=== PATIENT | female | born 1950 | race Caucasian/White ===

== ENCOUNTER → 2016-08-11 | Outpatient (CLI) | payer BC ==
[~2016-08-11] MED LIST: ACET-1256 PO; ALPR0.25 PO; CLON0.5T3 PO; EFF50 PO; LEVO1TAB35 PO; LRT5 PO; METO50TA7 PO; NITR0.4S UT; OMEP20TA14 PO; PRED20TA2 PO; PRED5PAK3 PO; RTL20 PO; ULT50X PO; VENL150C56 PO; VNTHFA/IN INH
--- NOTE | 2016-08-11 15:14 | DIAGNOSTIC IMAGING REPORT ---
CHEST 2 VIEWS ROUTINE CLINICAL HISTORY: BRONCHITIS SHORTNESS OF BREATH COMPARISON STUDY: 01/28/2010 FINDINGS: The cardiac and mediastinal contours are normal. There is no evidence of focal pulmonary consolidation. There is no evidence of failure. No pleural effusions are visualized.[ There is a severe vertebral body compression fracture at the thoracolumbar junction. The patient is status post a vertebroplasty at this level. IMPRESSION: No active disease in the chest. Electronically signed by: Gabriel Castorena M.D. 08/11/2016 3:12 PM Dictated Date/Time: 08/11/2016 3:10 PM
== END | disposition home or self-care (01) ==
LOC: C.RAD 14:53
PROVIDERS: ATTEND Internal Medicine
DX: J40 Bronchitis, not specified as acute or chronic (principal)

== ENCOUNTER → 2016-08-13 | Outpatient (CLI) | payer BC ==
[2016-08-13 13:33] LABS: BASO % 0.3 %; BASO ABS # 0.02 K/uL (0-0.2); COMPLETE YES; EOS % 9.5 %; HEMATOCRIT 41.3 % (37-47); IG% 0.3 %; LYMPH % 36.9 %; LYMPH ABS # 2.52 K/uL (1.2-3.4); MEAN CELL VOLUME 89.8 fL (80-100); MEAN CORPUSCULAR HEMOGLOBIN 30.4 pg (25-34); MEAN CORPUSCULAR HGB CONC 33.9 g/dl (32-36); MEAN PLATELET VOLUME 9.8 fL (7.4-10.4); MONO % 8.6 %; NEUT % 44.4 %; PLATELET COUNT 274 K/uL (130-400); WHITE BLOOD COUNT 6.83 K/uL (4.8-10.8)
[2016-08-13 15:07] LABS: CHOLESTEROL 241 mg/dl (0-200); CHOLESTEROL/HDL RATIO 4.5; HDL CHOLESTEROL 53 mg/dl; TRIGLYCERIDES 132 mg/dl (0-150); VERY LOW DENSITY LIPOPROT CALC 26 mg/dl
== END | disposition home or self-care (01) ==
LOC: C.LABSPEC 12:23
PROVIDERS: ATTEND Internal Medicine
DX: Z00.00 Encounter for general adult medical examination without abnormal findings (principal); R53.83 Other fatigue; E78.5 Hyperlipidemia, unspecified

== ENCOUNTER → 2016-08-14 | Outpatient (CLI) | payer BC ==
[2016-08-14 15:31] LABS: ALT/SGPT 23 U/L (12-78); AST/SGOT 14 U/L (15-37); BLOOD UREA NITROGEN 14 mg/dl (7-18); CALCIUM 9.4 mg/dl (8.5-10.1); CARBON DIOXIDE 27 mmol/L (21-32); CHLORIDE 103 mmol/L (98-107); CREATININE 0.81 mg/dl (0.60-1.20); GLUCOSE 85 mg/dl (70-99); POTASSIUM 3.8 mmol/L (3.5-5.1); SODIUM 140 mmol/L (136-145)
[2016-08-14 15:33] LABS: ALKALINE PHOSPHATASE 90 U/L (45-117)
== END | disposition home or self-care (01) ==
LOC: C.LABSPEC 11:20
PROVIDERS: ATTEND Internal Medicine
DX: Z00.00 Encounter for general adult medical examination without abnormal findings (principal)

== ENCOUNTER → 2016-08-27 | Outpatient (CLI) | payer BC ==
--- NOTE | 2016-08-27 11:34 | DIAGNOSTIC IMAGING REPORT ---
ULTRASOUND OF THE CAROTID ARTERIES CLINICAL HISTORY: Carotid artery stenosis. COMPARISON STUDY: Carotid artery ultrasound dated 04/03/2015. TECHNIQUE: Real-time, grayscale, and color Doppler sonography of the carotid arteries is performed. Images are reviewed in the transverse and longitudinal planes. FINDINGS: Blood pressure in the right arm measures 137/80 and blood pressure in the left arm measures 127/71. The carotid arteries are patent bilaterally and demonstrate antegrade flow. There is moderate echogenic shadowing atherosclerotic plaque seen in the carotid bulbs bilaterally, left greater than right. Normal doppler arterial waveforms are seen throughout. Velocity measurements are listed below. Common carotid peak systolic velocity (cm/sec): RIGHT: 79 LEFT: 83 ICA proximal peak systolic velocity (cm/sec): RIGHT: 68 LEFT: 147 ICA mid peak systolic velocity (cm/sec): RIGHT: 96 LEFT: 105 ICA distal peak systolic velocity (cm/sec): RIGHT: 66 LEFT: 71 ICA/CC peak systolic ratio: RIGHT: 1.2 LEFT: 1.8 Antegrade flow was shown in the right vertebral artery. Reversal of flow is noted in the left vertebral artery. The external carotid arteries are patent. IMPRESSION: 1. Atherosclerotic plaque with evidence of 50-69% stenosis at the origin of the left internal carotid artery by velocity criteria. This is similar to previous. 2. There is no sonographic evidence of hemodynamically significant stenosis in the right carotid arterial system. 3. Reversal of flow is seen in the left vertebral artery. This could be seen in the setting of subclavian steal phenomenon. Clinical correlation will be required. Electronically signed by: Mathew Hutchison M.D. 08/27/2016 11:32 AM Dictated Date/Time: 08/27/2016 11:30 AM
== END | disposition home or self-care (01) ==
LOC: C.ULTR 09:58
PROVIDERS: ATTEND Internal Medicine
DX: I65.22 Occlusion and stenosis of left carotid artery (principal)

== ENCOUNTER → 2016-08-27 | Outpatient (CLI) | payer BC ==
--- NOTE | 2016-08-28 12:36 | MAMMOGRAPHY REPORT ---
BILATERAL DIGITAL SCREENING MAMMOGRAM TOMOSYNTHESIS WITH CAD: 08/27/2016 CLINICAL HISTORY: Asymptomatic. TECHNIQUE: Breast tomosynthesis in addition to standard 2D mammography was performed. Current study was also evaluated with a Computer Aided Detection (CAD) system. COMPARISON: Comparison is made to exams dated: 04/24/2015 mammogram, 02/28/2014 mammogram, 08/11/2012 mammogram, 06/02/2011 mammogram, 06/22/2009 mammogram - [facility], and 08/21/2006. BREAST COMPOSITION: The tissue of both breasts is heterogeneously dense, which may obscure small ma sses. FINDINGS: There are coarse benign calcifications and grouped round benign-appearing microcalcificati ons in the breasts. A stable metallic biopsy marker in the 9:00 right breast. No new suspicious ma ss, architectural distortion or cluster of microcalcifications is seen. IMPRESSION: ACR BI-RADS CATEGORY 1: NEGATIVE There is no mammographic evidence of malignancy. A 1 year screening mammogram is recommended. The p atient will receive written notification of the results. Approximately 10% of breast cancers are not detected with mammography. A negative mammographic repor t should not delay biopsy if a clinically suggestive mass is present. Laila Dupont M.D. ay/:08/27/2016 21:27:48 Inside Account Representative: Kimberley HILL)(Rafi), [facility] letter sent: Normal 1/2 BI-RADS Code: ACR BI-RADS Category 1: Negative
== END | disposition home or self-care (01) ==
LOC: C.MAMM 11:19
PROVIDERS: ATTEND Internal Medicine
DX: Z12.31 Encounter for screening mammogram for malignant neoplasm of breast (principal)

== ENCOUNTER 2016-09-08 11:14 | Emergency (ER) | payer BC ==
[~2016-09-08] VITALS: Ht 157.5 cm; Wt 51.7 kg
[~2016-09-08 11:14] MED LIST changes: -ACET-1256 PO; -LEVO1TAB35 PO; -OMEP20TA14 PO; -PRED20TA2 PO; -PRED5PAK3 PO; -RTL20 PO; -ULT50X PO; -VENL150C56 PO; -VNTHFA/IN INH
[2016-09-08 11:17] VITALS: TEMP 36.6; Ht 157.5 cm; Wt 51.7 kg
[2016-09-08] MEDS ORDERED: METHYLPREDNISOLONE 125 MG VIAL IV STA (12:06)
[2016-09-08] MEDS ORDERED: ALBUT/IPRATROP 3MG/0.5MG NEB 3 ML VIAL INH STA (12:06)
--- NOTE | 2016-09-08 12:11 | EMERGENCY ROOM VISIT NOTE ---
History Report prepared by Isaura: Wyatt Downey Under the Supervision of: Dr. Uvaldo Kline D.O. First contact with patient: 12:03 Chief Complaint: COUGH Stated Complaint: PERSISTENT COUGH, FEVER, ONGOING X 2 MTHS Nursing Triage Summary: Pt c/o SOB, cough, fever for 2 months. Pt daughter states pt has been in bed and has been on antibiotics for cough. History of Present Illness The patient is a 65 year old female who presents to the Emergency Room with complaints of persistent coughing for the past two months. The patient also complains of chest tightness of shortness of breath, along with some wheezing, rhinorrhea, body aches, and intermittent fevers. She was febrile last night but not today. The patient denies sore throats, coughing up blood, or leg swelling. She has been on two different courses of antibiotics. She was also on cough syrup with codeine. She was not started on any steroids. The patient saw her doctor and had a chest X-ray and blood work. The X-ray was negative, and she has not been told the results of her blood work. The patient denies any history of COPD, asthma, or emphysema. The patient is a smoker and occasional alcohol drinker. Source of History: patient Onset: two months Position: other (respiratory) Quality: other (coughing) Timing: other (persistent) Associated Symptoms: + SOB, + chest pain, + fatigue, + fevers, No sorethroat Review of Systems See HPI for pertinent positives & negatives. A total of 10 systems reviewed and were otherwise negative. Past Medical & Surgical Medical Problems: (1) Diarrhea (2) Hypercholesterolemia (3) Left shoulder pain Family History No pertinent family history Social History Smoking Status: Current Every Day Smoker Alcohol Use: occasionally Current/Historical Medications Scheduled Acetaminophen (Tylenol), 1,000 MG PO DAILY Albuterol Hfa (Ventolin Hfa), 1 PUFF INH Q4 Clonazepam (Klonopin), 0.5 MG PO PRN Levofloxacin (Levaquin), 750 MG PO DAILY Metoprolol Succ (Toprol Xl) (Toprol-Xl), 50 MG PO DAILY Omeprazole Magnesium (Prilosec Otc), 20 MG PO DAILY Prednisone (Prednisone Tab), 40 MG PO DAILY Venlafaxine Hcl (Effexor Extended Rel), 150 MG PO DAILY Scheduled PRN Alprazolam (Xanax), 0.25 MG PO PRN PRN for Anxiety/Agitation Allergies Coded Allergies: Antihistamines, Chlorpheniramine-ty (Verified Adverse Reaction, Intermediate, BOUNCE OFF THE WALL;INCREASE HR, 09/08/16) Physical Exam Vital Signs Date Time Temp Pulse Resp B/P Pulse Ox O2 Delivery O2 Flow Rate FiO2 09/08/16 14:56 97 20 117/74 97 09/08/16 13:38 84 20 112/65 98 Room Air 09/08/16 12:43 90 26 109/69 99 Room Air 09/08/16 12:21 86 09/08/16 12:20 98 Room Air 09/08/16 11:19 98 Room Air 09/08/16 11:17 36.6 109 18 116/73 98 Room Air Physical Exam GENERAL: Patient is awake, alert, mildly anxious appearing but comfortable. EYES: The conjunctivae are clear. The pupils are round and reactive. EARS, NOSE, MOUTH AND THROAT: The nose is without any evidence of any deformity. Mucous membranes are moist tongue is midline NECK: The neck is nontender and supple. RESPIRATORY: Lung sounds are diminished throughout with scattered rhonchi, no conversational dyspnea. CARDIOVASCULAR: Regular rate and rhythm noted there no murmurs rubs or gallops normal S1 normal S2 GASTROINTESTINAL: The abdomen is soft. Bowel sounds are present in all quadrants. Abdomen is nontender MUSCULOSKELETAL/EXTREMITIES: There is no evidence of gross deformity full range of motion is noted in the hips and shoulders SKIN: There is no obvious evidence of any rash. There are no petechiae, pallor or cyanosis noted. NEUROLOGIC: Patient is awake alert and oriented x3. Medical Decision & Procedures ER Provider Diagnostic Interpretation: X-ray results as stated below per interpretation by me and the radiologist. Radiology results as stated below per my review and radiologist interpretation: CT ANGIOGRAPHY OF THE CHEST, PULMONARY EMBOLUS PROTOCOL CLINICAL HISTORY: Shortness of breath, cough and fever. COMPARISON STUDY: Chest radiograph August 11, 2016 and September 08, 2016. TECHNIQUE: Following IV administration of 81 mL of Optiray-320, helical axial images of the chest were obtained utilizing the pulmonary embolus protocol. Maximal intensity projections and sagittal and coronal reformats were viewed on an independent 3D workstation. IV contrast was administered without complication. CT DOSE: 179.78 mGy.cm FINDINGS: No pulmonary emboli are identified. The heart is mildly enlarged. There is a small hiatal hernia. No enlarged thoracic lymph nodes are present. There is no pericardial effusion. There is no evidence for thoracic aortic dissection. There is moderate stenosis of the proximal left subclavian artery. Central airways are patent. Biapical subpleural opacity suggest scarring. In addition, there are multifocal tree-in-bud nodules within the lungs, predominantly within the upper lobes. There are scattered lower lobe tree-in-bud nodules as well. There is no pneumothorax or pleural effusion. The bony thorax is unremarkable. A L1 vertebral augmentation is noted. Upper abdomen is unremarkable. Left adrenal nodularity is likely benign. IMPRESSION: 1. No pulmonary emboli identified. 2. Scattered tree-in-bud nodules within the lungs, predominantly within the bilateral upper lobes. The findings suggest a mild infectious bronchiolitis. A follow-up chest CT in one month to ensure resolution is recommended. 3. Biapical subpleural opacities which suggest scarring. 4. Mild cardiomegaly. 5. Small hiatal hernia Electronically signed by: Chago Horner M.D. 09/08/2016 2:03 PM Dictated Date/Time: 09/08/2016 1:56 PM CHEST 2 VIEWS ROUTINE CLINICAL HISTORY: Fever, cough. COMPARISON STUDY: 08/11/2016 FINDINGS: The cardiac and mediastinal contours are normal. There is no evidence of focal pulmonary consolidation. There is no evidence of failure. No pleural effusions are visualized.[ IMPRESSION: No active disease in the chest. Electronically signed by: Gabriel Castorena M.D. 09/08/2016 1:23 PM Dictated Date/Time: 09/08/2016 1:22 PM Laboratory Results 09/08/16 12:20 Red Blood Count 4.64, Mean Corpuscular Volume 88.8, Mean Corpuscular Hemoglobin 30.4, Mean Corpuscular Hemoglobin Concent 34.2, Mean Platelet Volume 9.0, Neutrophils (%) (Auto) 67.0, Lymphocytes (%) (Auto) 21.6, Monocytes (%) (Auto) 9.7, Eosinophils (%) (Auto) 1.1, Basophils (%) (Auto) 0.4, Neutrophils # (Auto) 6.34, Lymphocytes # (Auto) 2.04, Monocytes # (Auto) 0.92, Eosinophils # (Auto) 0.10, Basophils # (Auto) 0.04 09/08/16 12:20 Test 09/08/16 12:15 09/08/16 12:20 09/08/16 12:46 Influenza Type A Antigen Neg for Influ A (NEG) Influenza Type B Antigen Neg for Influ B (NEG) White Blood Count 9.46 K/uL (4.8-10.8) Red Blood Count 4.64 M/uL (4.2-5.4) Hemoglobin 14.1 g/dL (12.0-16.0) Hematocrit 41.2 % (37-47) Mean Corpuscular Volume 88.8 fL (80-100) Mean Corpuscular Hemoglobin 30.4 pg (25-34) Mean Corpuscular Hemoglobin Concent 34.2 g/dl (32-36) Platelet Count 341 K/uL (130-400) Mean Platelet Volume 9.0 fL (7.4-10.4) Neutrophils (%) (Auto) 67.0 % Lymphocytes (%) (Auto) 21.6 % Monocytes (%) (Auto) 9.7 % Eosinophils (%) (Auto) 1.1 % Basophils (%) (Auto) 0.4 % Neutrophils # (Auto) 6.34 K/uL (1.4-6.5) Lymphocytes # (Auto) 2.04 K/uL (1.2-3.4) Monocytes # (Auto) 0.92 K/uL (0.11-0.59) Eosinophils # (Auto) 0.10 K/uL (0-0.5) Basophils # (Auto) 0.04 K/uL (0-0.2) RDW Standard Deviation 45.1 fL (36.4-46.3) RDW Coefficient of Variation 13.8 % (11.5-14.5) Immature Granulocyte % (Auto) 0.2 % Immature Granulocyte # (Auto) 0.02 K/uL (0.00-0.02) Prothrombin Time 10.4 SECONDS (9.0-12.0) Prothromb Time International Ratio 1.0 (0.9-1.1) Activated Partial Thromboplast Time 31.7 SECONDS (21.0-31.0) Partial Thromboplastin Ratio 1.2 D-Dimer 620 ug/L FEU (0-500) Anion Gap 11.0 mmol/L (3-11) Est Creatinine Clear Calc Drug Dose 66.1 ml/min Estimated GFR () 107.1 Estimated GFR (Non- 92.4 BUN/Creatinine Ratio 16.1 (10-20) Calcium Level 9.7 mg/dl (8.5-10.1) Total Bilirubin 0.5 mg/dl (0.2-1) Aspartate Amino Transf (AST/SGOT) 17 U/L (15-37) Alanine Aminotransferase (ALT/SGPT) 26 U/L (12-78) Alkaline Phosphatase 113 U/L (45-117) Troponin I < 0.015 ng/ml (0-0.045) Total Protein 8.3 gm/dl (6.4-8.2) Albumin 3.7 gm/dl (3.4-5.0) Globulin 4.6 gm/dl (2.5-4.0) Albumin/Globulin Ratio 0.8 (0.9-2) Urine Color YELLOW Urine Appearance CLEAR (CLEAR) Urine pH 7.5 (4.5-7.5) Urine Specific [place] 1.016 (1.000-1.030) Urine Protein NEG (NEG) Urine Glucose (UA) NEG (NEG) Urine Ketones TRACE (NEG) Urine Occult Blood TRACE (NEG) Urine Nitrite NEG (NEG) Urine Bilirubin NEG (NEG) Urine Urobilinogen NEG (NEG) Urine Leukocyte Esterase LARGE (NEG) Urine WBC (Auto) >30 /hpf (0-5) Urine RBC (Auto) 5-10 /hpf (0-4) Urine Hyaline Casts (Auto) 1-5 /lpf (0-5) Urine Epithelial Cells (Auto) >30 /lpf (0-5) Urine Bacteria (Auto) 1+ (NEG) Laboratory results per my review. Medications Administered Medications (Trade) Dose Ordered Sig/Chelita Route Start Time Stop Time Status Last Admin Dose Admin Albuterol/ Ipratropium (Duoneb) 3 ml NOW STAT INH 09/08/16 12:06 09/08/16 12:07 DC 09/08/16 12:27 3 ML Methylprednisolone Sodium Succinate 125 mg 125 mg NOW STAT IV 09/08/16 12:06 09/08/16 12:07 DC 09/08/16 12:27 125 MG Sodium Chloride (Nss 1000ml) 1,000 ml @ 999 mls/hr Q1H1M STAT IV 09/08/16 13:17 09/08/16 14:17 DC 09/08/16 13:29 999 MLS/HR Levofloxacin (Levaquin Tab) 750 mg NOW STAT PO 09/08/16 14:12 09/08/16 14:13 DC 09/08/16 14:27 750 MG ECG Indication: SOB/dyspnea Rate (beats per minute): 89 Rhythm: normal sinus Findings: no acute ischemic change, no ectopy Comparison ECG Date: 21 October 2011 Change: no significant change ED Course 1205: The patient was evaluated in room B10. A complete history and physical examination were performed. 1206: Solu-Medrol 125 mg IV, DuoNeb 3 ml INH. 1317: NSS 1000 ml @ 999 mls/hr. 1412: Levofloxacin 750 mg PO. 1414: Reassessed the patient. I updated her. She will be discharged. Medical Decision Prior records/ancillary studies reviewed. Triage Nursing notes reviewed. Additional history obtained from the family. The patient's history was concerning for respiratory difficulties. Differential diagnosis: Etiologies such as infections, reactive airway disease, pneumonia, pneumothorax , COPD, CHF, cardiac ischemia, pulmonary embolism, musculoskeletal, gastrointestinal, as well as others were entertained. The patient is a 65-year-old female who presented to the emergency department for an evaluation of cough and shortness of breath. Patient was treated with medications in the past for similar complaints. Her d-dimer was found to be elevated. The patient was treated with bronchodilator therapy in the emergency department. She was also given steroids and antibiotics. Her CAT scan did not reveal any signs of pulmonary embolism but did show possible infectious bronchiolitis. I discussed the patient's laboratory and radiographic studies with her. She was feeling much better on subsequent reevaluation. She was encouraged to rest and avoid any strenuous activity. She was encouraged to call her primary care physician to schedule a follow-up appointment or return to the emergency apartment immediately if symptoms change worsen or the need arises. Impression Primary Impression: Acute bronchitis Additional Impression: Left sided chest pain Scribe Attestation The scribe's documentation has been prepared under my direction and personally reviewed by me in its entirety. I confirm that the note above accurately reflects all work, treatment, procedures, and medical decision making performed by me. Departure Information Dispostion Home / Self-Care Prescriptions Albuterol Hfa (VENTOLIN HFA) 200 Puffs/07007 Mcg Aers 1 PUFF INH Q4, #1 INHALER Prov: Uvaldo Kline, DO 09/08/16 Levofloxacin (Levaquin) 750 Mg Tab 750 MG PO DAILY, #7 TAB Prov: Uvaldo Kline, DO 09/08/16 Prednisone (Prednisone Tab) 20 Mg Tab 40 MG PO DAILY, #10 TAB Prov: Uvaldo Kline, DO 09/08/16 Omeprazole Magnesium (PRILOSEC OTC) 20 Mg Tab 20 MG PO DAILY, #30 TAB Prov: Uvaldo Kline, DO 09/08/16 Referrals Agus Kenney M.D. (PCP) Forms HOME CARE DOCUMENTATION FORM, IMPORTANT VISIT INFORMATION, Work Instructions Patient Instructions My [facility] Additional Instructions Rest and avoid any strenuous activity. Continue all medications as prescribed. Call your family to schedule a follow-up appointment. Return to the emergency department if your symptoms change worsen or if need arises. Problem Qualifiers
[2016-09-08 12:20] VITALS: O2SAT 98
[2016-09-08 12:38] LABS: BASO % 0.4 %; BASO ABS # 0.04 K/uL (0-0.2); COMPLETE YES; EOS % 1.1 %; HEMATOCRIT 41.2 % (37-47); IG% 0.2 %; LYMPH % 21.6 %; LYMPH ABS # 2.04 K/uL (1.2-3.4); MEAN CELL VOLUME 88.8 fL (80-100); MEAN CORPUSCULAR HEMOGLOBIN 30.4 pg (25-34); MEAN CORPUSCULAR HGB CONC 34.2 g/dl (32-36); MONO % 9.7 %; PLATELET COUNT 341 K/uL (130-400); RED BLOOD COUNT 4.64 M/uL (4.2-5.4); WHITE BLOOD COUNT 9.46 K/uL (4.8-10.8)
[2016-09-08 12:50] LABS: PARTIAL THROMBOPLASTIN RATIO 1.2; PROTHROMBIN TIME (PATIENT) 10.4 SECONDS (9.0-12.0)
[2016-09-08 13:00] LABS: ALT/SGPT 26 U/L (12-78); AST/SGOT 17 U/L (15-37); BLOOD UREA NITROGEN 11 mg/dl (7-18); BUN/CREATININE RATIO 16.1 (10-20); CALCIUM 9.7 mg/dl (8.5-10.1); CARBON DIOXIDE 24 mmol/L (21-32); CHLORIDE 104 mmol/L (98-107); CREATININE 0.68 mg/dl (0.60-1.20); GLUCOSE 76 mg/dl (70-99); POTASSIUM 3.8 mmol/L (3.5-5.1); SODIUM 139 mmol/L (136-145)
[2016-09-08 13:05] LABS: ALB/GLOB RATIO 0.8 (0.9-2); ALKALINE PHOSPHATASE 113 U/L (45-117)
[2016-09-08 13:09] LABS: URINE APPEARANCE CLEAR (CLEAR); URINE BILIRUBIN NEG (NEG); URINE COLOR YELLOW; URINE EPITHELIAL CELL AUTO >30 /lpf (0-5); URINE NITRITE NEG (NEG); URINE PH 7.5 (4.5-7.5); URINE SPECIFIC GRAVITY 1.016 (1.000-1.030); UROBILINOGEN NEG (NEG)
[2016-09-08] MEDS ORDERED: OPTIRAY 320 IV PRN (13:15)
[2016-09-08 13:16] LABS: MANUAL MICROSCOPIC REQUIRED? NO; REVIEW REQ? NO
[2016-09-08] MEDS ORDERED: SODIUM CHLORIDE 0.9% 1000ML 1,000 ML IV STA (13:17)
[2016-09-08] MEDS ORDERED: VENL150C56 PO (13:23)
[2016-09-08] MEDS ORDERED: ACET-1256 PO (13:24)
--- NOTE | 2016-09-08 13:24 | DIAGNOSTIC IMAGING REPORT ---
CHEST 2 VIEWS ROUTINE CLINICAL HISTORY: Fever, cough. COMPARISON STUDY: 08/11/2016 FINDINGS: The cardiac and mediastinal contours are normal. There is no evidence of focal pulmonary consolidation. There is no evidence of failure. No pleural effusions are visualized.[ IMPRESSION: No active disease in the chest. Electronically signed by: Gabriel Castorena M.D. 09/08/2016 1:23 PM Dictated Date/Time: 09/08/2016 1:22 PM
--- NOTE | 2016-09-08 14:05 | DIAGNOSTIC IMAGING REPORT ---
CT ANGIOGRAPHY OF THE CHEST, PULMONARY EMBOLUS PROTOCOL CLINICAL HISTORY: Shortness of breath, cough and fever. COMPARISON STUDY: Chest radiograph August 11, 2016 and September 08, 2016. TECHNIQUE: Following IV administration of 81 mL of Optiray-320, helical axial images of the chest were obtained utilizing the pulmonary embolus protocol. Maximal intensity projections and sagittal and coronal reformats were viewed on an independent 3D workstation. IV contrast was administered without complication. CT DOSE: 179.78 mGy.cm FINDINGS: No pulmonary emboli are identified. The heart is mildly enlarged. There is a small hiatal hernia. No enlarged thoracic lymph nodes are present. There is no pericardial effusion. There is no evidence for thoracic aortic dissection. There is moderate stenosis of the proximal left subclavian artery. Central airways are patent. Biapical subpleural opacity suggest scarring. In addition, there are multifocal tree-in-bud nodules within the lungs, predominantly within the upper lobes. There are scattered lower lobe tree-in-bud nodules as well. There is no pneumothorax or pleural effusion. The bony thorax is unremarkable. A L1 vertebral augmentation is noted. Upper abdomen is unremarkable. Left adrenal nodularity is likely benign. IMPRESSION: 1. No pulmonary emboli identified. 2. Scattered tree-in-bud nodules within the lungs, predominantly within the bilateral upper lobes. The findings suggest a mild infectious bronchiolitis. A follow-up chest CT in one month to ensure resolution is recommended. 3. Biapical subpleural opacities which suggest scarring. 4. Mild cardiomegaly. 5. Small hiatal hernia Electronically signed by: Chago Horner M.D. 09/08/2016 2:03 PM Dictated Date/Time: 09/08/2016 1:56 PM
[2016-09-08] MEDS ORDERED: LEVOFLOXACIN 250 MG TAB PO STA (14:12)
[2016-09-08] MEDS ORDERED: PRED20TA2 PO (14:28)
[2016-09-08] MEDS ORDERED: VNTHFA/IN INH (14:28)
[2016-09-08] MEDS ORDERED: OMEP20TA14 PO (14:28)
[2016-09-08] MEDS ORDERED: LEVO1TAB35 PO (14:28)
[2016-09-08 14:56] VITALS: BP 117/74; PULSE 97; O2SAT 97
[2016-10-03] MEDS ORDERED: ULT50X PO (08:03)
[2016-10-03] MEDS ORDERED: PRED5PAK3 PO (08:03)
== END 2016-09-08 14:56 | disposition home or self-care (01) ==
LOC: C.EDB 11:16
DX: J40 Bronchitis, not specified as acute or chronic (principal); R07.9 Chest pain, unspecified; E78.00 Pure hypercholesterolemia, unspecified; F17.200 Nicotine dependence, unspecified, uncomplicated

== ENCOUNTER 2016-09-30 12:17 | Inpatient (IN) | payer BC ==
[~2016-09-30] VITALS: Ht 157.5 cm; Wt 54.0 kg
[~2016-09-30 12:17] MED LIST changes: +ACET-1256 PO; -EFF50 PO; +LEVO1TAB35 PO; -LRT5 PO; -NITR0.4S UT; +PRED20TA2 PO; +VENL150C56 PO; +VNTHFA/IN INH
[2016-09-30] MEDS ORDERED: ONDANSETRON INJ 2 MG/ML 2 ML VIAL IV STA (12:32)
[2016-09-30] MEDS ORDERED: HYDROmorphone INJ 2 MG/ML SYR/VIAL IV PRN (12:45)
[2016-09-30] MEDS ORDERED: HYDROmorphone INJ 1 MG/ML SYR ONE ×2 (12:47→13:32)
[2016-09-30] MEDS ORDERED: RTL20 PO (12:49)
[2016-09-30 12:57] LABS: BASO % 0.3 %; BASO ABS # 0.02 K/uL (0-0.2); COMPLETE YES; EOS % 6.6 %; IG% 0.3 %; LYMPH % 28.8 %; LYMPH ABS # 1.91 K/uL (1.2-3.4); MEAN CELL VOLUME 90.7 fL (80-100); MEAN CORPUSCULAR HEMOGLOBIN 31.2 pg (25-34); MEAN CORPUSCULAR HGB CONC 34.4 g/dl (32-36); MEAN PLATELET VOLUME 9.2 fL (7.4-10.4); MONO % 5.3 %; NEUT % 58.7 %; PLATELET COUNT 327 K/uL (130-400); RED BLOOD COUNT 4.74 M/uL (4.2-5.4); WHITE BLOOD COUNT 6.63 K/uL (4.8-10.8)
[2016-09-30 13:15] LABS: BUN/CREATININE RATIO 18.7 (10-20); CALCIUM 9.7 mg/dl (8.5-10.1); CREATININE 0.67 mg/dl (0.60-1.20); POTASSIUM 3.8 mmol/L (3.5-5.1)
--- NOTE | 2016-09-30 13:56 | DIAGNOSTIC IMAGING REPORT ---
LUMBAR SPINE CT CT DOSE: 630.26 mGy.cm HISTORY: severe left back pain, prior L1 fx TECHNIQUE: Multiaxial CT images of the lumbar spine were performed and reformatted in the sagittal and coronal plane without the use of contrast. COMPARISON: Lumbar spine MRI 01/29/2010. FINDINGS: Moderate to severe superior endplate compression deformity at L1 with associated vertebroplasty. This is consistent with an old compression deformity. There is up to 3 mm of retropulsion of the posterior superior corner of the L1 vertebral body, unchanged. No significant central canal narrowing at this level. No acute fracture or subluxation within the lumbar spine. Mild facet degenerative changes throughout the lumbar spine. Small amount of extravasation of cement material lateral to the right L1 pedicle and at the left side of the L1 vertebral body. No significant central canal or neural foraminal narrowing. IMPRESSION: 1. An old moderate to severe superior endplate compression deformity at L1 with associated vertebroplasty. 2. No acute fracture or subluxation within the lumbar spine. 3. No significant central canal or neural foraminal narrowing. Electronically signed by: Hernandez Barber M.D. 09/30/2016 1:55 PM Dictated Date/Time: 09/30/2016 1:31 PM
[2016-09-30] MEDS ORDERED: DEXAMETHASONE SOD INJ 10 MG/ML VIAL IV ONE (14:15)
[2016-09-30 19:14] VITALS: BP 108/68; PULSE 55; TEMP 36.7; O2SAT 94; Ht 157.5 cm; Wt 54.0 kg
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
[2016-09-30] MEDS: OXYCODONE/ACETAMINOPHEN 5-325 TAB PO SCH (20:41)
[2016-09-30] MEDS: CYCLOBENZAPRINE HCL 10 MG TAB PO SCH (20:41)
[2016-09-30] MEDS: HEPARIN SOD 5000 UNIT/0.5 ML CARP SQ SCH (20:41)
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
[2016-09-30 23:00] VITALS: BP 108/54; PULSE 58; TEMP 36.5; O2SAT 97
[2016-10-01] MEDS: OXYCODONE/ACETAMINOPHEN 5-325 TAB PO SCH ×4 (02:09→20:29)
[2016-10-01] MEDS: MoRPHine SULFATE 4 MG/ML 1 ML CARP\\VIAL IV PRN ×3 (05:32→19:27)
[2016-10-01 06:45] LABS: BASO % 0.1 %; BASO ABS # 0.01 K/uL (0-0.2); COMPLETE YES; HEMATOCRIT 42.4 % (37-47); IG% 0.3 %; LYMPH % 18.1 %; LYMPH ABS # 1.32 K/uL (1.2-3.4); MEAN CELL VOLUME 90.4 fL (80-100); MEAN CORPUSCULAR HEMOGLOBIN 30.1 pg (25-34); MEAN CORPUSCULAR HGB CONC 33.3 g/dl (32-36); MONO % 4.1 %; NEUT % 77.4 %; PLATELET COUNT 316 K/uL (130-400); RED BLOOD COUNT 4.69 M/uL (4.2-5.4); WHITE BLOOD COUNT 7.31 K/uL (4.8-10.8)
[2016-10-01 07:05] VITALS: BP 124/56; PULSE 57; TEMP 36.6; O2SAT 97
[2016-10-01 07:19] LABS: BUN/CREATININE RATIO 27.5 (10-20); CALCIUM 9.1 mg/dl (8.5-10.1); CREATININE 0.68 mg/dl (0.60-1.20); POTASSIUM 4.1 mmol/L (3.5-5.1)
[2016-10-01 07:21] LABS: ALB/GLOB RATIO 0.9 (0.9-2)
[2016-10-01] MEDS: VENLAFAXINE HCL XR 150 MG CAPXR PO SCH (08:48)
[2016-10-01] MEDS: CYCLOBENZAPRINE HCL 10 MG TAB PO SCH ×4 (08:48→20:29)
[2016-10-01] MEDS: HEPARIN SOD 5000 UNIT/0.5 ML CARP SQ SCH ×2 (08:52→20:36)
[2016-10-01] MEDS: METHYLPHENIDATE HCL 10 MG TAB PO SCH ×2 (08:54→14:00)
[2016-10-01] MEDS: METOPROLOL SUCC 50MG EXT REL TAB PO SCH (08:54)
--- NOTE | 2016-10-01 11:14 | ORTHOPEDIC CONSULTATION ---
DATE OF CONSULTATION: 10/01/2016 CHIEF COMPLAINT: Back pain. HISTORY: This is a very pleasant 65-year-old female who is well known to me. She had the onset of significant lumbosacral back pain yesterday while putting on her boots. She denies any trauma, fall or precipitating event. She describes her pain as involving the lower lumbar region and left lumbosacral area. She denies any bowel or bladder changes or any radicular leg complaints. PHYSICAL EXAMINATION: She has excellent strength to testing lower extremities, is able to move them without difficulty. She has some discomfort when rolling over to her side. She has no pain to palpation or percussion over the midline lumbar region but significantly tender over the left SI joint. There are no abnormal skin markings. CAT scan available for review demonstrates evidence of old kyphoplasty at L1. There is no evidence of fracture. She has excellent overall alignment and evidence of osteoporosis. ASSESSMENT: Left sacroiliac joint dysfunction, strain/sprain, possible occult fracture. PLAN: At this time, I did speak with the physical therapist. We are going to initiate physical therapy, ambulation and transfers, see how she progresses over the next 24-48 hours. Ultimately, she fails to improve, we may consider MRI imaging of the lumbar spine; however, I suspect she will improve nicely over the next few days. Thank you.
[2016-10-01 14:54] VITALS: BP 121/70; PULSE 53; TEMP 36.7; O2SAT 95
[2016-10-01 23:01] VITALS: BP 97/55; PULSE 62; TEMP 36.7; O2SAT 98
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
[2016-10-02] VITALS (7 sets, daily range): BP systolic 84–99; BP diastolic 52–58; PULSE 59–70; TEMP 36.5–36.8; O2SAT 93–99
[2016-10-02] MEDS: OXYCODONE/ACETAMINOPHEN 5-325 TAB PO SCH ×4 (02:10→19:21)
[2016-10-02] MEDS: MoRPHine SULFATE 4 MG/ML 1 ML CARP\\VIAL IV PRN (05:13)
[2016-10-02] MEDS ORDERED: KETOROLAC TROMETHAMINE 15 MG/ML VIAL IV PRN (08:00)
[2016-10-02] MEDS: CYCLOBENZAPRINE HCL 10 MG TAB PO SCH ×3 (08:46→20:47)
[2016-10-02] MEDS: METOPROLOL SUCC 50MG EXT REL TAB PO SCH (08:48)
[2016-10-02] MEDS: VENLAFAXINE HCL XR 150 MG CAPXR PO SCH (08:48)
[2016-10-02] MEDS: METHYLPHENIDATE HCL 10 MG TAB PO SCH ×2 (08:49→13:41)
[2016-10-02] MEDS: HEPARIN SOD 5000 UNIT/0.5 ML CARP SQ SCH ×2 (08:55→20:49)
--- NOTE | 2016-10-03 00:31 | PROGRESS NOTE ---
DATE: 10/02/2016 A 65-year-old female admitted with severe acute intractable low back pain. She has a history of compression fracture of L1 many years ago, that required kyphoplasty. She also has coronary artery disease. The patient was admitted. She was given pain medication for control. Physical and occupational therapies were ordered. Spinal surgery consultation was requested from Dr. Carmichael. Today, her condition has started to improve. She still has pain whenever she moves, but overall her pain is improving but persistent. She denied any headache or dizziness. No chest pain, no shortness of breath. No abdominal pain. Tolerating her diet. Low back pain in lumbar area. No radiation of the pain to her extremities. PHYSICAL EXAMINATION: GENERAL: Well developed, in no distress. VITAL SIGNS: Blood pressure 95/58, pulse 59, respirations 15, temperature 36.6, oxygen saturation 99% on room air. SKIN: Warm and dry. No rash. HEENT: No mucosal abnormality. NECK: No JVD, no adenopathy. HEART: Regular heart sounds. LUNGS: Clear. BACK: Tenderness in the paraspinal region lumbar area. EXTREMITIES: No edema, clubbing or cyanosis. No evidence of any radiculopathy. ASSESSMENT: 1. Acute intractable lower back pain. 2. Remote history of L1 compression fracture with history of kyphoplasty. 3. Coronary artery disease, stable. PLAN: 1. Continue with her therapies. 2. I discontinued her morphine. 3. I placed her on Toradol. 4. Started her on prednisone. 5. Encouraged to be out of bed and ambulate. 6. We will see what level of pain she is having, see if her pain is improving, and decide on discharge home tomorrow.
[2016-10-03] MEDS: OXYCODONE/ACETAMINOPHEN 5-325 TAB PO SCH ×2 (01:59→08:20)
[2016-10-03 06:08] LABS: HEMATOCRIT 42.4 % (37-47); MEAN CELL VOLUME 89.1 fL (80-100); MEAN CORPUSCULAR HEMOGLOBIN 29.6 pg (25-34); MEAN CORPUSCULAR HGB CONC 33.3 g/dl (32-36); MEAN PLATELET VOLUME 9.1 fL (7.4-10.4); PLATELET COUNT 329 K/uL (130-400); RED BLOOD COUNT 4.76 M/uL (4.2-5.4); WHITE BLOOD COUNT 7.89 K/uL (4.8-10.8)
[2016-10-03 07:50] VITALS: BP 110/78; PULSE 65; TEMP 36.7; O2SAT 97
[2016-10-03] MEDS ORDERED: ULT50X PO (08:03)
[2016-10-03] MEDS ORDERED: PRED5PAK3 PO (08:03)
--- NOTE | 2016-10-03 08:07 | Discharge Instructions ---
Discharge Instructions Date of Service Oct 03, 2016. Admission Reason for Admission: Severe Low Back Pain. Cad Discharge Discharge Diagnosis / Problem: ACUTE LOW BACK PAIN Discharge Goals Goal(s): Decrease discomfort, Improve function, Increase independence, Improve disease control Activity Recommendations Activity Limitations: as noted below (GRADUAL INCREASE TOLERATED) . Instructions / Follow-Up Instructions / Follow-Up DR ABDI NEXT WEEK Current Hospital Diet Patient's current hospital diet: AHA Diet (Heart Healthy) Discharge Diet Recommended Diet: AHA Diet (Heart Healthy) Pending Studies Studies pending at discharge: no Laboratory Results Lipid Panel Test 08/13/16 09:50 Range/Units Triglycerides Level 132 0-150 mg/dl Cholesterol Level 241 H 0-200 mg/dl HDL Cholesterol 53 mg/dl LDL Cholesterol Direct 177 mg/dl Cholesterol/HDL Ratio 4.5 LDL Cholesterol, Calculated mg/dl Medical Emergencies . Who to Call and When: Medical Emergencies: If at any time you feel your situation is an emergency, please call 911 immediately. . Non-Emergent Contact Non-Emergency issues call your: Primary Care Provider . . "Provider Documentation" section prepared by Agus Abdi. VTE Core Measure Inpt VTE Proph given/why not?: Treatment not indicated
[2016-10-03] MEDS: METHYLPHENIDATE HCL 10 MG TAB PO SCH (08:16)
[2016-10-03] MEDS: METOPROLOL SUCC 50MG EXT REL TAB PO SCH (08:19)
[2016-10-03] MEDS: VENLAFAXINE HCL XR 150 MG CAPXR PO SCH (08:20)
[2016-10-03] MEDS: CYCLOBENZAPRINE HCL 10 MG TAB PO SCH (08:20)
[2016-10-03] MEDS: HEPARIN SOD 5000 UNIT/0.5 ML CARP SQ SCH (08:23)
[2016-10-03 09:56] VITALS: O2SAT 97
[2016-10-03 10:21] VITALS: BP 110/78; PULSE 65; TEMP 36.7; O2SAT 97
--- NOTE | 2016-10-04 01:33 | PROGRESS NOTE ---
DATE: 10/03/2016 SUBJECTIVE: A 65-year-old female admitted with acute severe intractable low back pain. Her medical problems also include history of compression fracture of L1, underwent kyphoplasty, coronary artery disease, attention deficit disorder. The patient was admitted. Pain controlled. Physical and occupational therapy. Spinal surgery consultation from Dr. Carmichael. Her condition has improved. She is still having significant pain in her lower back, especially with any movement, but she is able to move, get out of bed and ambulate. She denied any headache or dizziness or lightheadedness. No chest pain, no shortness of breath. No abdominal pain, no nausea, no vomiting. Back pain, but no evidence of any radiculopathy. PHYSICAL EXAMINATION: GENERAL: Well developed in no distress. VITAL SIGNS: Blood pressure 110/78, pulse 65, respirations 16, temperature 36.7, oxygen saturation 97% on room air. SKIN: Warm and dry. No rash. HEENT: No mucosal abnormality. NECK: No JVD. No adenopathy. HEART: Regular heart sounds. LUNGS: Clear. ABDOMEN: Soft, nontender. BACK: There is a well-localized area of tenderness in the lumbar area. EXTREMITIES: No edema, clubbing, or cyanosis. ASSESSMENT: 1. Acute severe intractable low back pain. 2. History of compression fracture of L1, status post kyphoplasty. 3. Coronary artery disease. 4. Attention deficit disorder. 5. Smoker. She just stopped a few days prior to her admission. PLAN: 1. Continuing the same medications. 2. Pain controlled. 3. She was discharged home today. She was continued on prednisone and Flexeril and also gave her tramadol for pain control. 4. I asked her to stop by the office on the way home and gave her back exercises book. I recommended outpatient physical therapy, but the patient was not interested.
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
== END 2016-10-03 14:00 | disposition home or self-care (01) | DRG 552 ==
LOC: ENRESERVDT → ENRESERVTM → EDBD 12:17 → C.EDC 12:18 → C.MSW 18:18
PROVIDERS: ADMIT Internal Medicine; ATTEND Internal Medicine
DX: M54.5 Low back pain (principal); I25.10 Atherosclerotic heart disease of native coronary artery without angina pectoris; E78.00 Pure hypercholesterolemia, unspecified; F17.200 Nicotine dependence, unspecified, uncomplicated; F90.0 Attention-deficit hyperactivity disorder, predominantly inattentive type; F32.9 Major depressive disorder, single episode, unspecified; F41.9 Anxiety disorder, unspecified; Z90.710 Acquired absence of both cervix and uterus

== ENCOUNTER → 2017-08-25 | Outpatient (CLI) | payer BC ==
[~2017-08-25] MED LIST changes: -ACET-1256 PO; -CLON0.5T3 PO; -LEVO1TAB35 PO; -METO50TA7 PO; +METO50TA8 PO; -PRED20TA2 PO; +PRED5PAK3 PO; +RTL20 PO; +ULT50X PO; -VNTHFA/IN INH
[2017-08-25 13:27] LABS: BASO % 0.2 %; BASO ABS # 0.02 K/uL (0-0.2); EOS % 1.7 %; EOS ABS # 0.18 K/uL (0-0.5); HEMATOCRIT 40.8 % (37-47); HEMOGLOBIN 13.7 g/dL (12.0-16.0); IG# 0.03 K/uL (0.00-0.02); LYMPH % 13.3 %; LYMPH ABS # 1.38 K/uL (1.2-3.4); MEAN CELL VOLUME 90.9 fL (80-100); MEAN CORPUSCULAR HEMOGLOBIN 30.5 pg (25-34); MEAN CORPUSCULAR HGB CONC 33.6 g/dl (32-36); MEAN PLATELET VOLUME 9.5 fL (7.4-10.4); MONO % 7.2 %; MONO ABS # 0.75 K/uL (0.11-0.59); NEUT % 77.3 %; NEUT ABS # 8.01 K/uL (1.4-6.5); PLATELET COUNT 352 K/uL (130-400); RED CELL DISTRIBUTION WIDTH CV 13.2 % (11.5-14.5); RED CELL DISTRIBUTION WIDTH SD 43.5 fL (36.4-46.3); WHITE BLOOD COUNT 10.37 K/uL (4.8-10.8)
[2017-08-25 13:30] LABS: FECAL OCCULT BLOOD #1 NEGATIVE (NEGATIVE); FECAL OCCULT BLOOD #2 NEGATIVE (NEGATIVE); FECAL OCCULT BLOOD #3 NEGATIVE (NEGATIVE)
[2017-08-25 14:57] LABS: ALBUMIN 3.6 gm/dl (3.4-5.0); ALT/SGPT 20 U/L (12-78); AST/SGOT 15 U/L (15-37); BLOOD UREA NITROGEN 11 mg/dl (7-18); CALCIUM 9.5 mg/dl (8.5-10.1); CARBON DIOXIDE 26 mmol/L (21-32); CREATININE 0.65 mg/dl (0.60-1.20); GLUCOSE 87 mg/dl (70-99); LIPASE 227 U/L (73-393); POTASSIUM 3.8 mmol/L (3.5-5.1); SODIUM 136 mmol/L (136-145)
[2017-08-25 15:00] LABS: ALKALINE PHOSPHATASE 94 U/L (45-117); TOTAL PROTEIN 7.8 gm/dl (6.4-8.2)
== END | disposition home or self-care (01) ==
LOC: C.LABSPEC 12:31
PROVIDERS: ATTEND Internal Medicine
DX: Z12.11 Encounter for screening for malignant neoplasm of colon (principal); R10.10 Upper abdominal pain, unspecified

== ENCOUNTER → 2017-08-28 | Outpatient (CLI) | payer BC ==
--- NOTE | 2017-08-28 11:14 | DIAGNOSTIC IMAGING REPORT ---
ABDOMEN LIMITED (US) HISTORY: 66 years-old Female SEVERE UPPER ABDOMINAL PAIN acute severe upper abdominal pain COMPARISON: CT abdomen and pelvis 01/28/2010 TECHNIQUE: Multiple real-time sonogram images of the abdominal right upper quadrant were obtained assessing grayscale appearance and color flow FINDINGS: Pancreas is partially obscured by bowel gas. Imaged portions are unremarkable. Gallbladder is within normal limits without wall thickening, pericholecystic fluid or shadowing cholelithiasis. Common bile duct is normal, 6 mm. No intrahepatic biliary ductal dilation. There is a 5 mm echogenic lesion involving the right hepatic lobe without internal vascularity identified. No additional hepatic mass lesions are seen. Imaged right kidney is unremarkable without hydronephrosis. IMPRESSION: 1. No cholelithiasis or sonographic evidence of acute cholecystitis. 2. 5 mm echogenic lesion of the right hepatic lobe may reflect a hemangioma, however is indeterminate. 3. No biliary ductal dilation. The above report was generated using voice recognition software. It may contain grammatical, syntax or spelling errors. Electronically signed by: Rad Beckwith M.D. 08/28/2017 11:13 AM Dictated Date/Time: 08/28/2017 11:10 AM
== END | disposition home or self-care (01) ==
LOC: C.ULTR 10:36
PROVIDERS: ATTEND Internal Medicine
DX: R10.10 Upper abdominal pain, unspecified (principal); K76.9 Liver disease, unspecified

== ENCOUNTER → 2017-08-28 | Outpatient (CLI) | payer BC ==
--- NOTE | 2017-08-28 15:27 | MAMMOGRAPHY REPORT ---
BILATERAL DIGITAL SCREENING MAMMOGRAM TOMOSYNTHESIS WITH CAD: 08/28/2017 CLINICAL HISTORY: Routine screening. Patient has no complaints. TECHNIQUE: Breast tomosynthesis in addition to standard 2D mammography was performed. Current study was also evaluated with a Computer Aided Detection (CAD) system. COMPARISON: Comparison is made to exams dated: 08/27/2016 mammogram, 04/24/2015 mammogram, 02/28/2014 ma mmogram, 08/19/2012 mammogram, 08/11/2012 mammogram, and 06/02/2011 mammogram - [facility] enter. BREAST COMPOSITION: The tissue of both breasts is heterogeneously dense, which may obscure small mas ses. FINDINGS: No suspicious masses, calcifications, or areas of architectural distortion are noted in ei ther breast. There has been no significant interval change compared to prior exams. Bilateral benign -appearing calcifications are not significantly changed. A biopsy marker clip is again noted within the right superior breast. IMPRESSION: ACR BI-RADS CATEGORY 2: BENIGN There is no mammographic evidence of malignancy. A 1 year screening mammogram is recommended. The pa tient will receive written notification of the results. Approximately 10% of breast cancers are not detected with mammography. A negative mammographic report should not delay biopsy if a clinically suggestive mass is present. Karey Mchugh M.D. ah/:08/28/2017 12:44:14 [employer] Sales Representative: Anny CASIANO(Thor)(M), [facility] letter sent: Normal 1/2 BI-RADS Code: ACR BI-RADS Category 2: Benign
== END | disposition home or self-care (01) ==
LOC: C.MAMM 11:40
PROVIDERS: ATTEND Internal Medicine
DX: Z12.31 Encounter for screening mammogram for malignant neoplasm of breast (principal)

== ENCOUNTER 2018-12-22 17:45 | Inpatient (IN) ==
--- OUTSIDE RECORDS SUMMARY | 2018-12-22 17:49 | External Medical Summary | Continuity of Care Document ---
:1950 Author Name Jesus Franklin, Provider Address Unavailable Unavailable , Care Team Providers Name Role Phone Unavailable Unavailable Unavailable ROVERTO ABDI Unavailable Unavailable Unavailable Unavailable Unavailable Problems Coronary artery disease (414.00) (I25.10) Depression (311) (F32.9) Impingement syndrome of left shoulder (726.2) (M75.42) Hypercholesterolemia (272.0) (E78.00) Allergies and Adverse Reactions Antihistamine TABS (Allergy) Reaction: P alpitations Medications Calcium 600 MG Oral Tablet; Take 1 tablet daily , M.D. Refills: 0 Vitamin B-12 1000 MCG Oral Tablet; TAKE 1 TABLET DAILY. , M. D. Refills: 0 Fish Oil 1000 MG Oral Capsule; TAKE 1 CAPSULE DAILY. , M.D. Refills: 0 Isosorbide Mononitrate ER 60 MG Oral Tab let Extended Release 24 Hour; TAKE 1 TABLET DAILY. , M.D. Refills: 0 Metoprolol Succinate ER 50 MG Oral Table t Extended Release 24 Hour; TAKE 1 TABLET DAILY. , M.D. Refills: 0 Effexor XR 150 MG Oral Capsule Extended Release 24 Norman r; TAKE 1 CAPSULE DAILY. , M.D. Refills: 0 Simvastatin 80 MG Oral Tablet; Take 1 tablet daily , M.D. Refills: 0 Xanax 0.25 MG Oral Tablet; TAKE TABLET 3 times daily PRN , M .D. Refills: 0 KlonoPIN 0.5 MG Oral Tablet; Take 1 tablet twice daily , M.D . Refills: 0 Aspirin 81 MG TABS; TAKE 1 TABLET DAILY. , M.D. Refills: 0 Procedures Procedures not documented Immunizations Immunizations not documented Social History - Smoking Status Smoker. current status unknown Plan of Treatment Planned Observations Planned Goals not documented Results No Known Results Results not documented
[2018-12-22 18:16] LABS: Basophils # (auto) 0.02 K/uL (0-0.2); Basophils % (auto) 0.2 %; Eosinophils # (auto) 0.14 K/uL (0-0.5); Eosinophils % (auto) 1.7 %; Hematocrit (blood only) 37.8 % (37-47); Hemoglobin 13.1 g/dL (12.0-16.0); Immature Granulocytes # (auto) 0.03 K/uL (0.00-0.02); Immature Granulocytes % (auto) 0.4 %; Lymphocytes # (auto) 1.47 K/uL (1.2-3.4); Lymphocytes % (auto) 17.9 %; Mean Corpuscular Hgb Conc 34.7 g/dL (32-36); Mean Corpuscular Volume 88.9 fL (80-100); Mean Platelet Volume 8.7 fL (7.4-10.4); Monocytes % (auto) 4.9 %; Neutrophils # (auto) 6.14 K/uL (1.4-6.5); Neutrophils % (auto) 74.9 %; Platelet Count 315 K/uL (130-400); RDW Coefficient of Variation 13.4 % (11.5-14.5); RDW Standard Deviation 43.6 fL (36.4-46.3); Red Blood Count 4.25 M/uL (4.2-5.4)
[2018-12-22] MEDS ORDERED: NITROGLYCERIN 2% OINTMENT 30GM TUBE EXT STA (18:16)
--- NOTE | 2018-12-22 18:17 | XRay Report ---
SINGLE VIEW CHEST CLINICAL HISTORY: Atypical chest pain. FINDINGS: An AP, portable, upright chest radiograph is compared to study dated 07/30/2018. Correlation is made with chest CT dated 09/08/2016. The cardiomediastinal heart is mildly enlarged and there is a therosclerotic calcification of the thoracic aorta. The pulmonary vasculature is noncongested. Emphys mary kay and chronic interstitial thickening are similar to previous. No airspace consolidation or pleural effusion is identified. Apical scarring is observed. No pneumothorax is seen. The skeletal structure s are osteopenic. The bony thorax is grossly intact. There is mild S-shaped thoracolumbar scoliosis. IMPRESSION: Cardiomegaly and emphysema with no active disease in the chest. Electronically signed by: Mathew Hutchison M.D. 12/22/2018 6:16 PM
[2018-12-22] MEDS ORDERED: SODIUM CHLORIDE 0.9% 1000ML 1,000 ML IV STA (18:37)
[2018-12-22 19:05] LABS: Albumin Level 3.3 gm/dl (3.4-5.0); BUN Creatinine Ratio 16.7 (10-20); Creatinine Clr Calc Pharmacy 59.1 ml/min; Est GFR (African American) 98.8; Est GFR (Non-African American) 85.2; Potassium 3.3 mmol/L (3.5-5.1)
[2018-12-22 19:36] LABS: Bilirubin,Total 0.3 mg/dl (0.2-1); Globulin 3.4 gm/dl (2.5-4.0); Total Protein 6.7 gm/dl (6.4-8.2); Troponin I 0.024 ng/ml (0-0.045)
--- NOTE | 2018-12-22 21:06 | History & Physical Report ---
Date of Service December 22, 2018 Assessment & Plan (1) Substernal chest pain: 68yo F PMH CAD, HTN, HLD, Crohn's, Depression, ADHD presents with acute chest pain and EKG changes. Unstable angina/EKG changes/Chest pain/CAD -Admit to tele -Heparin drip -Cards consult appreciated -Echo ordered -Trend trop, check A1c, lipid profile, mag -Started on daily ASA, atorvastatin 80 -IVF, prn morphine/nitro -Recommend smoking cessation measures HTN -Continue home metoprolol 50 ER, hold for BP/HR parameters -Start on Dao when BP allows HLD -Resumed high-intensity statin Hypokalemia -K of 3.3 on admission with hemolysis -Repleted. Monitor. Crohns -Cont mesalamine ADHD -has not been taking meds lately as she lost her bottle. Depression -Cont venlafaxine Code: full Dispo: admit to tele DVTP: heparin drip FEN/GI: NSS @125, NPO (2) Acute electrocardiogram changes: (3) Unstable angina: (4) Crohns disease: (5) HTN (hypertension): (6) Hyperlipidemia: (7) CAD (coronary artery disease): (8) Hypokalemia: History of Present Illness Chief Complaint: Chest Pain Primary Care Provider: Agus Manzano MD Patient is a pleasant 68yo F PMH CAD, adult ADHD, Crohn's, depression, who presents with 2 episodes of chest pain in the past 24 hours. She notes that last night, she had an episode of chest discomfort that radiated to her neck and jaw while she was resting in bed. Associated with shortness of breath and diaphoresis. She states she took 2 xanax and within an hour her symptoms resolved. Today, she states she had been gardening outside, felt tired, so went inside to take a shower and while walking into her room felt the chest pain return, again radiating to her neck and jaw and associated with heavy breathing, lightheadedness, and diaphoresis. Denies nausea/vomiting/calf pain/palpitations. She took 2 xanax again but this did not alleviate her symptoms so EMS was called. EKGs from EMS and in ER show diffuse ST changes, most notably ST depression in II, V4-6. Troponin .024. She was given 2 nitro and asa in the ER and her chest pain has resolved. Nitro paste was held due to BP of 100/53 and HR 50. Patient takes toprol XL daily. Had previously taken a daily asa, simvastatin 80, but patient reports she stopped the statin herself many years ago due to cramps and just stopped taking the aspirin. Patient had CAD diagnosed in 2006, when she had [place] cardiac [place] [facility] [place] they found 50% stenosis in prox LAD, 40% in proximal 1st diagonal, RCA dominant vessel with 20% stenosis, EF 68%. She also had a stress echo in 2010 prior to a procedure, where she participated for 9 min Cruz protocol without symptoms, but did show post EKG changes of .5- 1mm ST depressions in V4-6. Because patient was asymptomatic, these were noted to be "artifact." She is a current everyday smoker. She does not think she is diabetic. Does report some family history of heart disease. Allergies Allergy/AdvReac Type Severity Reaction Status Date / Time chlorpheniramine AdvReac Intermediate BOUNCE OFF Verified 12/22/18 21:00 THE WALL;INCREASE HR Home Medications Home Medications Medication Instructions Recorded Confirmed Type alprazolam 0.25 mg PO BID PRN 12/22/18 12/22/18 History dextroamphetamine-amphetamine 10 mg PO BID 12/22/18 12/22/18 History mesalamine [Pentasa] 1,000 mg PO AMPM 12/22/18 12/22/18 History metoprolol succinate 50 mg PO DAILY 12/22/18 12/22/18 History venlafaxine 150 mg PO DAILY 12/22/18 12/22/18 History Past Med/Surg History Medical History Hypercholesterolemia (Chronic) Diarrhea (Resolved) Left shoulder pain (Chronic) CAD (coronary artery disease) Family History Other Cancer Heart disease Hypertension Social History Preferred Language: Yi Communication Ability: Effective Hoop Cutter Required: No Beliefs That Will Affect Care: None marital status: / Current Living Situation: Alone current occupational status: retired Other Information That Helps Us Care for You: No Feels Safe at Home: Yes Safety Concerns: Feels Safe At This Time Smoking Status: Current every day smoker Tobacco Type: cigarettes Cigarettes Per Day: 10 Do You Dip or Chew Tobacco: No Second Hand Exposure: No Tobacco Cessation Education Requested by Patient: No Hx Alcohol Use: Yes Alcohol type: beer and wine Hx Substance Use: No Review of Systems Review of Systems: All systems reviewed & are unremarkable except as noted in HPI & below Constitutional: + fatigue Cardiovascular: + 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), + chest pain at rest (DOUBLE END TENONER SETTER), + radiating jaw, neck or arm pain (prior to arrival), + dyspnea (DOUBLE END TENONER SETTER) and + lightheadedness (DOUBLE END TENONER SETTER); no palpitations, no edema and no calf pain Physical Exam Constitutional: WD/WN, vitals as above + thin and comfortable; no acute distress, not in distress and not diaphoretic Eyes: PERRL, conjunctivae normal, anicteric sclerae ENMT: external ear and nose normal, oropharynx normal Neck: normal visual inspection Respiratory: normal respiratory effort, lungs clear to auscultation Cardiovascular: RRR, no murmur, no edema Gastrointestinal (Abdomen): normal bowel sounds, soft, nontender, no hepatosplenomegaly Musculoskeletal: no cyanosis or clubbing, extremities motor strength 5/5 Skin: no rashes, warm and dry Neurologic: PERRL, EOMI, accommodation nl, no face palsy, no dysarthria Psychiatric: A+Ox3, euthymic affect Results & Data Vital Signs (Past 12 Hours) Vital Signs Temp Pulse Resp BP Pulse Ox 12/22/18 20:30 64 14 102/56 L 95 12/22/18 20:00 60 20 93/49 L 95 12/22/18 19:30 56 L 18 94/61 L 96 12/22/18 19:00 50 L 13 97/63 L 96 12/22/18 18:31 62 17 93/61 L 96 12/22/18 18:00 36.7 C 59 L 18 107/55 L 98 Laboratory Results 12/22/18 12/22/18 Range/Units 18:07 18:07 WBC 8.20 (4.8-10.8) K/uL RBC 4.25 (4.2-5.4) M/uL Hgb 13.1 (12.0-16.0) g/dL Hct 37.8 (37-47) % MCV 88.9 (80-100) fL MCH 30.8 (25-34) pg MCHC 34.7 (32-36) g/dL RDW Std Deviation 43.6 (36.4-46.3) fL RDW Coeff of Harish 13.4 (11.5-14.5) % Plt Count 315 (130-400) K/uL MPV 8.7 (7.4-10.4) fL Immature Gran % (Auto) 0.4 % Neut % (Auto) 74.9 % Lymph % (Auto) 17.9 % [place] % (Auto) 4.9 % Eos % (Auto) 1.7 % Baso % (Auto) 0.2 % Immature Gran # (Auto) 0.03 H (0.00-0.02) K/uL Neut # (Auto) 6.14 (1.4-6.5) K/uL Lymph # (Auto) 1.47 (1.2-3.4) K/uL [place] # (Auto) 0.40 (0.11-0.59) K/uL Eos # (Auto) 0.14 (0-0.5) K/uL Baso # (Auto) 0.02 (0-0.2) K/uL Sodium 138 (136-145) mmol/L Potassium 3.3 L (3.5-5.1) mmol/L Chloride 105 (98-107) mmol/L Carbon Dioxide 26 (21-32) mmol/L Anion Gap 7.0 (3-11) BUN 12 (7-18) mg/dl Creatinine 0.73 (0.6-1.2) mg/dl Est Cr Clr Drug Dosing 59.1 ml/min Est GFR ( Amer) 98.8 Est GFR (Non-Af Amer) 85.2 BUN/Creatinine Ratio 16.7 (10-20) Glucose 115 H (70-99) mg/dl Calcium 9.0 (8.5-10.1) mg/dl Total Bilirubin 0.3 (0.2-1) mg/dl AST 19 (15-37) U/L ALT 17 (12-78) U/L Alkaline Phosphatase 86 (45-117) U/L Troponin I 0.024 (0-0.045) ng/ml Total Protein 6.7 (6.4-8.2) gm/dl Albumin 3.3 L (3.4-5.0) gm/dl Globulin 3.4 (2.5-4.0) gm/dl Albumin/Globulin Ratio 1.0 (0.9-2) Lipase 117 (73-393) U/L Specimen Hemolysis Diagnostic Findings SINGLE VIEW CHEST CLINICAL HISTORY: Atypical chest pain. FINDINGS: An AP, portable, upright chest radiograph is compared to study dated 07/30/2018. Correlation is made with chest CT dated 09/08/2016. The cardiomediastinal heart is mildly enlarged and there is atherosclerotic calcification of the thoracic aorta. The pulmonary vasculature is noncongested. Emphysema and chronic interstitial thickening are similar to previous. No airspace consolidation or pleural effusion is identified. Apical scarring is observed. No pneumothorax is seen. The skeletal structures are osteopenic. The bony thorax is grossly intact. There is mild S-shaped thoracolumbar scoliosis. IMPRESSION: Cardiomegaly and emphysema with no active disease in the chest. Electronically signed by: Mathew Hutchison M.D. 12/22/2018 6:16 PM Code Status & VTE Plan Code Status Full VTE Prophylaxis Plan VTE Prophylaxis will be ordered: Yes Supervising Physician Co-Signing Physician Notes Patient seen and examined, chart reviewed, case discussed with Dr Tavares and I agree with her assessment and plan as documented above. Briefly, patient is a 68yo C female with CAD, HLP presenting with two episodes of chest pain. Pain described as pressure, fullness, 10/10 in severity associated with radiation to the jaw, diaphoresis and SOB. EMS EKG with TWI present. Patient presently chest pain free On exam she is afebrile, bradycardic HEENT: MMM, neck supple, no JVD Heart: +S1/S2, regular Lungs: CTA Abd: soft, NT/ND Ext: No edema Labs and images reviewed. Troponin detectable Assessment/Plan: high concern for ACS given description of pain, patient risk factors, detectable troponin and EKG changes. Admit to PCU, heparin gtt, trend troponin, remainder of plan as above Resident Activity Tracking Resident Involvement: Resident Care Provided Care Provided: Adult [facility]
[2018-12-22] MEDS ORDERED: ALPRAZolam 0.25 MG TABLET PO PRN (21:36)
--- NOTE | 2018-12-22 22:12 | Emergency Department Note ---
Entered by Makayla Harrell acting as a scribe for ED Provider Note CHIEF COMPLAINT: Chest Pain HISTORY OF PRESENT ILLNESS: The patient is a 68 year old female who presents to the Emergency Room with complaints of intermittent chest pain that started last night. The patient states that she has had 2 episodes of chest pain. She states that with both there was a very extreme pressure that ran from the bottom of her chest/upper abdomen all the way up to her throat. She states that it ran right up the middle and radiated into her back. She reports that it also radiated down her left arm. She notes that it felt like she needed to burp, but couldn�t. The patient states that she felt like she was going to pass out and her daughter notes that she became extremely pale. The patient notes a history of CAD, but denies stents and bypass. The patient denies tingling. EMS notes that upon arrival she was diaphoretic. They report that they gave her an Aspirin and 2 Nitroglycerin. They note that she took a Xanax prior to their arrival. Pt denies LOC, headache, fevers, chills, visual changes, neck pain, chest pain, breathing difficulties, nausea, vomiting, back pain, melena, hematochezia, urinary symptoms, numbness, weakness, lymphadenopathy, rash, or other complaints. REVIEW OF SYSTEMS: See HPI for pertinent positives and negatives. A total of ten systems were reviewed and were otherwise negative. PMHx/PSHx: CAD, Hypercholesterolemia SOCIAL HISTORY: Patient lives at home alone and is retired. She is and a smoker. PHYSICAL EXAM: GENERAL: Awake, alert, well-appearing, in no distress HENT: Normocephalic, atraumatic. Oropharynx unremarkable. EYES: PERRL. Normal conjunctiva. Sclera non-icteric. NECK: Inspection normal. Non-tender. Supple. No nuchal rigidity. FROM. No masses. RESPIRATORY: Clear to auscultation. No wheezes. No rales. Normal respiratory effort. CARDIAC: Normal rate. Normal rhythm. No murmurs. No rubs. Extremities warm and well perfused. Pulses equal. No JVD. GI: Soft, non-distended. No tenderness to palpation. No rebound or guarding. No masses. RECTAL: Deferred. MUSCULOSKELETAL: Atraumatic. Chest examination reveals no tenderness. The back is symmetrical on inspection without obvious abnormality. There is no CVA tenderness to palpation. No joint edema. LOWER EXTREMITIES: Calves are equal size bilaterally and non-tender. No edema. No discoloration. NEURO: Normal sensorium. No sensory or motor deficits noted. SKIN: No rash or jaundice noted. EMERGENCY DEPARTMENT COURSE: 1802: Past medical records reviewed. The patient was evaluated in room B5, and a complete history and physical examination were performed. 2008: I reevaluated the patient and updated her on her test results. I discussed the treatment plan with her. She verbally agrees and understands. 2049: I discussed the patient's case with Dr. Loan HERRERA Hospitalist. She will evaluate the patient for further management. MEDICAL DECISION MAKING: Prior records/ancillary studies reviewed. Triage Nursing notes reviewed and agree them. Additional history obtained from the family. The patient's history was concerning for chest pain. Differential diagnosis: Etiologies such as cardiac ischemia, aortic dissection, pulmonary embolism, pneumonia, pneumothorax, musculoskeletal, infections, pericarditis, myocarditis, esophageal rupture, gastrointestinal, as well as others were entertained. Physical examination: As above. ER treatment provided: Nitropaste ordered however this was held due to the patient's blood pressure and the fact that she was pain-free. On reassessment the patient felt well. Cardiac monitoring Diagnostic interpretation by me: The electrocardiogram was negative for pathologic change. The labs revealed an unremarkable CBC and chemistry panel. Troponin negative peer Imaging studies: Chest x-ray performed and no acute findings were noted. The patient is doing well although she had chest pain with electric cardia Surendra changes. She will need further management in the hospital. Consultation: A consultation was placed with the hospitalist. The case was discussed and diagnostics were reviewed. The patient was evaluated in the ER for further treatment. IMPRESSION: Substernal chest pain, Acute electrocardiogram changes PLAN: Being Evaluated by the Hospitalist The scribe's documentation has been prepared under my direction and personally reviewed by me in its entirety. I confirm that the note above accurately reflects all work, treatment, procedures, and medical decision making performed by me. Impression & Plan Substernal chest pain, Acute electrocardiogram changes Past Med/Surg History Medical History Hypercholesterolemia (Chronic) Diarrhea (Resolved) Left shoulder pain (Chronic) CAD (coronary artery disease) Family History Other Cancer Heart disease Hypertension Social History marital status: / Current Living Situation: Alone current occupational status: retired Feels Safe at Home: Yes Smoking Status: Current every day smoker Results & Data Vital Signs Vital Signs - 24 hr 12/22/18 18:00 12/22/18 18:31 12/22/18 19:00 Temperature 36.7 C Temperature Source Oral Sepsis Recent Fever Within 48 Hours No Sepsis New/Unexplained Change in Mental Status No Sepsis Action Taken by Nursing No Action Required Pulse Rate 59 L 62 50 L Pulse Rate from SpO2 Sensor 62 53 L Respiratory Rate 18 17 13 Blood Pressure 107/55 L 93/61 L 97/63 L Blood Pressure Mean 72 71 74 Pulse Oximetry 98 96 96 Oxygen Delivery Method Room Air Room Air Room Air 12/22/18 19:30 12/22/18 20:00 12/22/18 20:30 Temperature Temperature Source Sepsis Recent Fever Within 48 Hours Sepsis New/Unexplained Change in Mental Status Sepsis Action Taken by Nursing Pulse Rate 56 L 60 64 Pulse Rate from SpO2 Sensor 58 L 60 64 Respiratory Rate 18 20 14 Blood Pressure 94/61 L 93/49 L 102/56 L Blood Pressure Mean 72 63 71 Pulse Oximetry 96 95 95 Oxygen Delivery Method Room Air Room Air Room Air 12/22/18 21:01 12/22/18 21:30 Temperature Temperature Source Sepsis Recent Fever Within 48 Hours Sepsis New/Unexplained Change in Mental Status Sepsis Action Taken by Nursing Pulse Rate 67 48 L Pulse Rate from SpO2 Sensor 59 L 49 L Respiratory Rate 17 17 Blood Pressure 102/53 L 105/53 L Blood Pressure Mean 69 70 Pulse Oximetry 98 96 Oxygen Delivery Method Room Air Room Air Home Medications Current Medication List: was personally reviewed by me Laboratory Data Attestation: I reviewed the patient's lab results. Result diagrams: 12/22/18 18:07 12/22/18 18:07 Lab Results 12/22/18 12/22/18 Range/Units 18:07 18:07 WBC 8.20 (4.8-10.8) K/uL RBC 4.25 (4.2-5.4) M/uL Hgb 13.1 (12.0-16.0) g/dL Hct 37.8 (37-47) % MCV 88.9 (80-100) fL MCH 30.8 (25-34) pg MCHC 34.7 (32-36) g/dL RDW Std Deviation 43.6 (36.4-46.3) fL RDW Coeff of Harish 13.4 (11.5-14.5) % Plt Count 315 (130-400) K/uL MPV 8.7 (7.4-10.4) fL Immature Gran % (Auto) 0.4 % Neut % (Auto) 74.9 % Lymph % (Auto) 17.9 % [place] % (Auto) 4.9 % Eos % (Auto) 1.7 % Baso % (Auto) 0.2 % Immature Gran # (Auto) 0.03 H (0.00-0.02) K/uL Neut # (Auto) 6.14 (1.4-6.5) K/uL Lymph # (Auto) 1.47 (1.2-3.4) K/uL Jun[place] # (Auto) 0.40 (0.11-0.59) K/uL Eos # (Auto) 0.14 (0-0.5) K/uL Baso # (Auto) 0.02 (0-0.2) K/uL Sodium 138 (136-145) mmol/L Potassium 3.3 L (3.5-5.1) mmol/L Chloride 105 (98-107) mmol/L Carbon Dioxide 26 (21-32) mmol/L Anion Gap 7.0 (3-11) BUN 12 (7-18) mg/dl Creatinine 0.73 (0.6-1.2) mg/dl Est Cr Clr Drug Dosing 59.1 ml/min Est GFR ( Amer) 98.8 Est GFR (Non-Af Amer) 85.2 BUN/Creatinine Ratio 16.7 (10-20) Glucose 115 H (70-99) mg/dl Calcium 9.0 (8.5-10.1) mg/dl Total Bilirubin 0.3 (0.2-1) mg/dl AST 19 (15-37) U/L ALT 17 (12-78) U/L Alkaline Phosphatase 86 (45-117) U/L Troponin I 0.024 (0-0.045) ng/ml Total Protein 6.7 (6.4-8.2) gm/dl Albumin 3.3 L (3.4-5.0) gm/dl Globulin 3.4 (2.5-4.0) gm/dl Albumin/Globulin Ratio 1.0 (0.9-2) Lipase 117 (73-393) U/L Specimen Hemolysis Administered Medications Sodium Chloride (Nss 1000ml) 1,000 mls @ 125 mls/hr IV .Q8H STA Stop: 12/23/18 02:36 Last Admin: 12/22/18 19:01 Dose: 125 mls/hr Documented by: [id number] Imaging Data Radiologist's Impression: Radiology results as stated below per my review and the radiologist's interpretation: SINGLE VIEW CHEST CLINICAL HISTORY: Atypical chest pain. FINDINGS: An AP, portable, upright chest radiograph is compared to study dated 07/30/2018. Correlation is made with chest CT dated 09/08/2016. The cardiomediastinal heart is mildly enlarged and there is atherosclerotic calcification of the thoracic aorta. The pulmonary vasculature is noncongested. Emphysema and chronic interstitial thickening are similar to previous. No airspace consolidation or pleural effusion is identified. Apical scarring is observed. No pneumothorax is seen. The skeletal structures are osteopenic. The bony thorax is grossly intact. There is mild S-shaped thoracolumbar scoliosis. IMPRESSION: Cardiomegaly and emphysema with no active disease in the chest. Electronically signed by: Mathew Hutchison M.D. 12/22/2018 6:16 PM ECG Data Attestation: I personally reviewed and interpreted this ECG as follows: Indication: chest pain Rate (beats per minute): 52 Rhythm: sinus bradycardia Findings: + nonspecific-ST abn and + Q waves (septal) Additional Comments: PREHOSPITAL EKG: Sinus rhythm at a rate of 48. Lateral and inferior TWI. Blood Pressure Blood Pressure Findings: Low blood pressure Blood Pressure Disposition: further management by hospitalist Discharge Plan Visit Data Chief Complaint: Chest Pain ED Provider: Jos Scott Discharge Problem: Substernal chest pain, Acute electrocardiogram changes Patient Disposition: Being Evaluated by Hospitalist Forms Stand Alone Forms: Call Back Authorization, [facility] Prescriptions Prescriptions: No Action venlafaxine 150 mg capsule,extended release 24hr 150 mg PO DAILY RF: 0 metoprolol succinate 50 mg tablet extended release 24 hr 50 mg PO DAILY RF: 0 alprazolam 0.25 mg tablet 0.25 mg PO BID PRN (Reason: Anxiety) RF: 0 Pentasa 500 mg capsule, extended release 1,000 mg PO AMPM RF: 0 dextroamphetamine-amphetamine 10 mg tablet 10 mg PO BID RF: 0 Referrals Referrals: Agus Manzano MD [Primary Care Provider] - The scribe's documentation has been prepared under my direction and personally reviewed by me in its entirety. I confirm that the note above accurately reflects all work, treatment, procedures, and medical decision making performed by me.
[2018-12-22] MEDS ORDERED: NITROGLYCERIN SL 0.4 MG/TAB TAB SL PRN (23:26)
[2018-12-22] MEDS ORDERED: MAGNESIUM HYDROXIDE SUSP 30 ML UDC PO PRN (23:26)
[2018-12-22] MEDS ORDERED: POLYETHYLENE (MIRALAX) 17 GM PACK PO PRN (23:26)
[2018-12-22] MEDS ORDERED: ACETAMINOPHEN 325 MG TAB PO PRN (23:26)
[2018-12-22] MEDS ORDERED: ALUMINUM/MAGNESIUM SUSP 30 ML UDC PO PRN (23:26)
[2018-12-22] MEDS ORDERED: ONDANSETRON INJ 2 MG/ML 2 ML VIAL IV PRN (23:26)
[2018-12-22] MEDS ORDERED: MoRPHine SULFATE 2 MG/ML CARP IV PRN (23:26)
[2018-12-22] MEDS ORDERED: POTASSIUM CHLORIDE 20 MEQ TABCR PO STA (23:26)
[2018-12-22] MEDS ORDERED: NITROGLYCERIN 2% OINTMENT 30GM TUBE EXT PRN (23:26)
[2018-12-22] MEDS ORDERED: Heparin IV Standard *NO* Bolus IV SCH (23:30)
[2018-12-22] MEDS: SODIUM CHLORIDE 0.9% 1000ML 1,000 ML IV SCH (23:45)
[2018-12-23] MEDS: MESALAMINE 250 MG CAPCR PO SCH ×2 (00:07→08:32)
[2018-12-23] MEDS ORDERED: Heparin Adult STANDARD Wt-Based Dextrose 5% 25,000 units/500 mL IV SCH (00:15)
[2018-12-23 00:52] LABS: Partial Thromboplastin Time 26.2 Seconds (21.0-31.0); Prothrombin Time 10.3 Seconds (9.0-12.0)
[2018-12-23 02:21] LABS: Basophils # (auto) 0.02 K/uL (0-0.2); Basophils % (auto) 0.3 %; Eosinophils # (auto) 0.24 K/uL (0-0.5); Eosinophils % (auto) 3.3 %; Hemoglobin 13.6 g/dL (12.0-16.0); Immature Granulocytes # (auto) 0.01 K/uL (0.00-0.02); Immature Granulocytes % (auto) 0.1 %; Lymphocytes # (auto) 2.95 K/uL (1.2-3.4); Lymphocytes % (auto) 40.7 %; Mean Corpuscular Volume 89.9 fL (80-100); Mean Platelet Volume 8.6 fL (7.4-10.4); Monocytes # (auto) 0.51 K/uL (0.11-0.59); Neutrophils # (auto) 3.51 K/uL (1.4-6.5); Neutrophils % (auto) 48.6 %; Platelet Count 308 K/uL (130-400); RDW Coefficient of Variation 13.5 % (11.5-14.5); RDW Standard Deviation 44.7 fL (36.4-46.3); Red Blood Count 4.45 M/uL (4.2-5.4); White Blood Count 7.24 K/uL (4.8-10.8)
[2018-12-23 02:44] LABS: Albumin Globulin Ratio 0.9 (0.9-2); Albumin Level 3.2 gm/dl (3.4-5.0); Bilirubin,Total 0.3 mg/dl (0.2-1); Calcium 8.5 mg/dl (8.5-10.1); Creatinine Clr Calc Pharmacy 61.5 ml/min; Est GFR (African American) 106.5; Est GFR (Non-African American) 91.9; Globulin 3.5 gm/dl (2.5-4.0); Magnesium 2.5 mg/dl (1.8-2.4); Potassium 3.8 mmol/L (3.5-5.1); Total Protein 6.7 gm/dl (6.4-8.2)
[2018-12-23 03:37] LABS: Troponin I 0.089 ng/ml (0-0.045)
[2018-12-23 05:59] LABS: Estimated Average Glucose 120 mg/dl; Hemoglobin A1C 5.8 % (4.5-5.6)
[2018-12-23] MEDS: SODIUM CHLORIDE 0.9% 1000ML 1,000 ML IV SCH ×2 (07:48→15:45)
[2018-12-23 07:51] LABS: Partial Thromboplastin Ratio 1.6; Partial Thromboplastin Time 43.9 Seconds (21.0-31.0)
[2018-12-23] MEDS ORDERED: HEPARIN IV BOLUS 2,000 UNITS in SYRINGE 0 ML IV SCH (09:00)
[2018-12-23] MEDS ORDERED: METOPROLOL SUCC 50MG EXT REL TAB PO SCH (09:00)
[2018-12-23] MEDS ORDERED: ASPIRIN 81 MG ECTAB PO SCH (09:00)
[2018-12-23] MEDS ORDERED: ATORVASTATIN 40 MG TAB PO SCH (09:00)
[2018-12-23] MEDS ORDERED: VENLAFAXINE HCL XR 150 MG CAPXR PO SCH (09:00)
--- NOTE | 2018-12-23 10:12 | Cardiology Consultation ---
Date of Consultation December 23, 2018 Assessment & Plan (1) Unstable angina: Her presenting symptoms are very suggestive of unstable angina. Although they occurred after exercise they did not occur during exercise, they lasted for substantial length of time (1/2 to 2 hours) and they are associated with a slight enzyme rise. Given her known history of coronary disease I think we have to assume this is progressive coronary artery disease. She has risk factors of continued smoking, and she has not been on aspirin or statin recently, although she had been in the past. I recommended a catheterization. She is agreeable. (2) CAD (coronary artery disease): She has a history of known coronary disease in 2006, she is not on risk factor modification currently and she continues to smoke so it is very likely that she has had progression. I believe her symptoms are most likely due to progressive coronary disease and we need to define her anatomy. (3) Tobacco abuse: She continues to smoke about 1/2 pack/day. We will need to child welfare counselor her to quit smoking. (4) Hypercholesterolemia: She does have hyperlipidemia with a total cholesterol of 217 and an LDL of 152. With her known coronary disease (even without her current presentation) she should be on a statin. I am not sure why she no longer is, but we need to try to restart that. Her liver function tests are normal. History of Present Illness Reason for Consultation: Chest discomfort Attending Physician: Marian Osorio MD History of Present Illness This is a very pleasant 68-year-old woman who has a history of coronary artery disease dating back to catheterization at [facility] in January 2007. At that time she had 50% proximal LAD stenosis, 40% proximal first diagonal stenosis and minimal disease in the first obtuse marginal and in the right coronary artery. Her left ventricular function was normal. She was doing well at the time, she had a treadmill stress test in December 2010 where she completed 9 minutes on the Cruz protocol and had no significant echocardiographic abnormalities. At the time she was on a simvastatin 80 mg daily, aspirin and metoprolol succinate 50 mg daily. She has continued to smoke and has continued to be very active. To my knowledge she has not had further cardiology follow- up. She presents now with symptoms very suggestive of unstable angina. On the evening of December and on December 22, 2018 she developed substernal chest pressure which was associated with diaphoresis, lightheadedness and left arm discomfort. The symptoms lasted for an hour and 1/2 to 2 hours before resolving. They did not occur during activity (she is very active with gardening, etc.) but occurred just after performing this physical activity. After the episode on December 22 she came into the emergency room where she was observed to have a negative troponin and no acute electrocardiographic changes however she was admitted and started on heparin. Subsequently her enzymes have increased slightly, her second troponin was 0.089 and the third (this morning) 0.087. She has had no recurrent symptoms. She has been quite active, she has had no other cardiovascular symptoms such as lightheadedness, dizziness, palpitations, excessive tiredness, dyspnea on exertion or exertional chest discomfort. She smokes about 1/2 pack/day. She no longer appears to be on a statin, she does remain on metoprolol succinate and she does not seem to be on aspirin as an outpatient. Allergies Allergy/AdvReac Type Severity Reaction Status Date / Time chlorpheniramine AdvReac Intermediate BOUNCE OFF Verified 12/22/18 21:00 THE WALL;INCREASE HR Home Medications Home Medications Medication Instructions Recorded Confirmed Type alprazolam 0.25 mg PO BID PRN 12/22/18 12/22/18 History dextroamphetamine-amphetamine 10 mg PO BID 12/22/18 12/22/18 History mesalamine [Pentasa] 1,000 mg PO AMPM 12/22/18 12/22/18 History metoprolol succinate 50 mg PO DAILY 12/22/18 12/22/18 History venlafaxine 150 mg PO DAILY 12/22/18 12/22/18 History Patient History Medical History Hypercholesterolemia (Chronic) Diarrhea (Resolved) Left shoulder pain (Chronic) CAD (coronary artery disease) Family History Other Cancer Heart disease Hypertension Social History Preferred Language: [place]erratian Communication Ability: Effective Sign Installer Required: No Beliefs That Will Affect Care: None marital status: / Current Living Situation: Alone current occupational status: retired Other Information That Helps Us Care for You: No Feels Safe at Home: Yes Safety Concerns: Feels Safe At This Time Smoking Status: Current every day smoker Tobacco Type: cigarettes Cigarettes Per Day: 10 Do You Dip or Chew Tobacco: No Second Hand Exposure: No Tobacco Cessation Education Requested by Patient: No Hx Alcohol Use: Yes Alcohol type: beer and wine Hx Substance Use: No Review of Systems Review of Systems: All systems reviewed & are unremarkable except as noted in HPI & below Physical Exam Physical Exam: Constitutional: Alert, cooperative and in no distress. HEENT: Unremarkable Neck: No jugular venous distention, carotid pulses are normal and equal bilaterally without bruits. Pulmonary: Clear to auscultation bilaterally. Cardiac: Regular slow rhythm with no murmur, gallop or rub. Abdomen: Soft, nontender with normal bowel sounds. Extremities: No edema. Distal pulses intact. Neurologic: No focal findings. Gait is steady. Skin: No rash, ecchymoses or petechiae. Results & Data Vital Signs (Past 12 Hours) Vital Signs Temp Pulse Pulse Pulse Resp BP BP 12/23/18 08:07 36.6 C 49 L 17 135/68 12/23/18 08:00 48 L 12/23/18 04:48 36.5 C 52 L 15 110/56 L 12/22/18 23:08 36.5 C 51 L 20 110/59 L 12/22/18 22:58 51 L 19 84/46 L 12/22/18 22:30 56 L 20 99/55 L Pulse Ox 12/23/18 08:07 97 12/23/18 08:00 12/23/18 04:48 99 12/22/18 23:08 99 12/22/18 22:58 96 12/22/18 22:30 97 Diagnostic Findings Her electrocardiogram on arrival shows sinus bradycardia at 52 bpm, a possible old anteroseptal myocardial infarction but no acute changes. Telemetry: Sinus rhythm and sinus bradycardia, one 6 beat run of NSVT at 620 this morning
--- NOTE | 2018-12-23 11:45 | Pre Anesthesia Assessment ---
Date of Service December 23, 2018 Pre Sedation Assessment Vital Signs Temp Pulse Pulse Pulse Resp BP BP 12/23/18 08:07 36.6 C 49 L 17 135/68 12/23/18 08:00 48 L 12/23/18 04:48 36.5 C 52 L 15 110/56 L 12/22/18 23:08 36.5 C 51 L 20 110/59 L 12/22/18 22:58 51 L 19 84/46 L 12/22/18 22:30 56 L 20 99/55 L 12/22/18 22:00 48 L 21 98/54 L 12/22/18 21:30 48 L 17 105/53 L 12/22/18 21:01 67 17 102/53 L 12/22/18 20:30 64 14 102/56 L 12/22/18 20:00 60 20 93/49 L 12/22/18 19:30 56 L 18 94/61 L 12/22/18 19:00 50 L 13 97/63 L 12/22/18 18:31 62 17 93/61 L 12/22/18 18:00 36.7 C 59 L 18 107/55 L Pulse Ox 12/23/18 08:07 97 12/23/18 08:00 12/23/18 04:48 99 12/22/18 23:08 99 12/22/18 22:58 96 12/22/18 22:30 97 12/22/18 22:00 97 12/22/18 21:30 96 12/22/18 21:01 98 12/22/18 20:30 95 12/22/18 20:00 95 12/22/18 19:30 96 12/22/18 19:00 96 12/22/18 18:31 96 12/22/18 18:00 98 Cardiovascular + regular rate Respiratory + respiratory effort normal Pre-Sedation Airway Assessment Smoking Status: Current every day smoker Hx Sleep Apnea: No Hx Difficult Intubation: No Short, Thick Neck: No Thyromental Distance: > or= 3.5 Finger Breadths Oral Cavity: + WNL Mallampati Class: III ASA: ASA3 Procedure Planning Contraindications for Sedation: none Current Medications Reviewed: Yes Notes The planned sedation has been discussed with the patient. Informed Consent was obtained. I have identified the patient, determined the appropriateness of sedation and have assessed the patient immediately prior to the procedure. All medicine(s) and interventions are by my order.
[2018-12-23] MEDS ORDERED: HEPARIN (PORCINE) 1000 UNIT/ML 10 ML (CATH LAB USE ONLY) ONE (11:53)
[2018-12-23] MEDS ORDERED: NITROGLYCERIN/D5W 100MCG/ML 20ML SYR ONE (11:53)
[2018-12-23] MEDS ORDERED: NiCARDipine HCL INJ 2.5 MG/ML 10 ML AMP ONE (11:53)
[2018-12-23] MEDS ORDERED: MIDAZOLAM HCL 1 MG/ML 2ML VIAL ONE (11:53)
[2018-12-23] MEDS ORDERED: fentaNYL citrate 100 MCG/2 ML VIAL ONE (11:53)
--- NOTE | 2018-12-23 12:34 | Cardiac Catheterization ---
Cardiac Cath Procedure: Brief Procedure Date December 23, 2018 Pre-Procedure Diagnosis Pre-Procedure Diagnosis: Acute Coronary Syndrome AUC Score AUC Score: 8 Post-Procedure Diagnosis Post-Procedure Diagnosis: Severe CAD Procedure(s) Performed Procedure(s) Performed: Coronary Angiography and Left Heart Cath Book Mender Chacorta Hannah MD Inspector Set Up And Lay Out(s) none Estimated Blood Loss Estimated Blood Loss: 10cc Medication(s) Medication(s): Fentanyl, Heparin, Nicardipine, Nitroglycerin and Versed Preliminary Findings Severe ostial LM disease. 99% mid RCA, 70% mid LAD and D1. 50-60% mid OM1 . Normal LVEDP Recommendations Recommendations: CABG Specimens Specimens: None Procedural Complication(s) None Disposition Recovery Room\PACU
[2018-12-23] MEDS ORDERED: Nursing to Pharmacy Communication ONE (13:44)
--- NOTE | 2018-12-23 14:20 | Discharge Summary ---
Date of Service December 23, 2018 Admission HPI Per Admitting Provider Patient is a pleasant 68yo F PMH CAD, adult ADHD, Crohn's, depression, who presents with 2 episodes of chest pain in the past 24 hours. She notes that last night, she had an episode of chest discomfort that radiated to her neck and jaw while she was resting in bed. Associated with shortness of breath and diaphoresis. She states she took 2 xanax and within an hour her symptoms resolved. Today, she states she had been gardening outside, felt tired, so went inside to take a shower and while walking into her room felt the chest pain return, again radiating to her neck and jaw and associated with heavy breathing, lightheadedness, and diaphoresis. Denies nausea/vomiting/calf pain/palpitations. She took 2 xanax again but this did not alleviate her symptoms so EMS was called. EKGs from EMS and in ER show diffuse ST changes, most notably ST depression in II, V4-6. Troponin .024. She was given 2 nitro and asa in the ER and her chest pain has resolved. Nitro paste was held due to BP of 100/53 and HR 50. Patient takes toprol XL daily. Had previously taken a daily asa, simvastatin 80, but patient reports she stopped the statin herself many years ago due to cramps and just stopped taking the aspirin. Patient had CAD diagnosed in 2006, when she had [place] cardiac [place] [facility] found 50% stenosis in prox LAD, 40% in proximal 1st diagonal, RCA dominant vessel with 20% stenosis, EF 68%. She also had a stress echo in 2010 prior to a procedure, where she participated for 9 min Cruz protocol without symptoms, but did show post EKG changes of .5- 1mm ST depressions in V4-6. Because patient was asymptomatic, these were noted to be "artifact." She is a current everyday smoker. She does not think she is diabetic. Does report some family history of heart disease. Admission Exam Per Admitting Provider Constitutional: WD/WN, vitals as above + thin and comfortable; no acute distress, not in distress and not diaphoretic Eyes: PERRL, conjunctivae normal, anicteric sclerae ENMT: external ear and nose normal, oropharynx normal Neck: normal visual inspection Respiratory: normal respiratory effort, lungs clear to auscultation Cardiovascular: RRR, no murmur, no edema Gastrointestinal (Abdomen): normal bowel sounds, soft, nontender, no hepatosplenomegaly Musculoskeletal: no cyanosis or clubbing, extremities motor strength 5/5 Skin: no rashes, warm and dry Neurologic: PERRL, EOMI, accommodation nl, no face palsy, no dysarthria Psychiatric: A+Ox3, euthymic affect Principal Diagnosis Unstable Angina/Severe CAD Discharge Exam Constitutional + thin and comfortable; no acute distress, not in distress and not diaphoretic Respiratory normal respiratory effort, lungs clear to auscultation Cardiovascular RRR, no murmur, no edema Gastrointestinal (Abdomen) normal bowel sounds, soft, nontender, no hepatosplenomegaly Musculoskeletal no cyanosis or clubbing, extremities motor strength 5/5 Psychiatric A+Ox3, euthymic affect Discharge Data Allergies Allergy/AdvReac Type Severity Reaction Status Date / Time chlorpheniramine AdvReac Intermediate BOUNCE OFF Verified 12/22/18 21:00 THE WALL;INCREASE HR Consultations 12/22/18 23:02 ED Decision to Admit Stat 12/22/18 23:26 Consult Cardiology Routine 12/23/18 13:52 Burn CD for patient Stat Procedures Performed Operation Date: 12/23/18 13:00 Actual Procedures p Cath, Left with Cors and Vent - Donlad Hannah MD s Cineradiography w/Routine Exam - Donald Hannah MD Ordered Studies 12/23/18 11:03 CL Cath Imgs for PACS use only Routine Hospital Course (1) Substernal chest pain: Ms. Ansari is a 68 year old female with a past medical history of CAD, HTN, HLD, tobacco abuse, Crohn's, Depression, and ADHD who presented to [facility] with acute chest pain and EKG changes. Unstable angina with multivessel CAD - placed on Heparin drip initially - cardiac cath revealed severe ostial left main disease and obstructive disease involving the mid LAD, first diagonal, OM1 and mid right coronary artery - cardiology recommending CABG -> pt will be transferred [place] [facility] [place] - ECHO: Normal left ventricular systolic function, normal diastolic function - trop peaked at 0.089 - HbA1c = 5.8% - FLP: Chol 217, LDL 152, HDL 50 and TG 73 - pt was not on aspirin at home -> started on daily ASA and atorvastatin 80mg - Recommend smoking cessation measures (pt smokes 1/2 pack per day) HTN -Continue home metoprolol succinate 50mg daily -Initiate YASMANI when BP allows HLD -Resumed high-intensity statin, unsure why this was discontinued in the past Crohn's Disease -Cont mesalamine ADHD -has not been taking meds lately as she lost her bottle. Depression -Continue venlafaxine (2) Acute electrocardiogram changes: (3) Unstable angina: (4) Crohns disease: (5) HTN (hypertension): (6) Hyperlipidemia: (7) CAD (coronary artery disease): (8) Hypokalemia: Total Time Total Time Spent Total Time Spent (In Minutes): 35 Discharge Plan Discharge Items Patient Disposition: Transfer Acute Care Hospital Reason For Visit: UNSTABLE ANGINA Discharge Diagnosis: Severe CAD Discharge Goals: Therapeutic intervention Activity: Resume your previous activity Non-emergency contact: Primary Care Provider Call non-emergency contact if: you have any medication questions Follow-up/Referrals: Agus Manzano MD [Primary Care Provider] - Diet: Heart Healthy Addtl Provider Instructions: Ms. Ansari, you were seen at [facility] due to chest pain. You underwent a cardiac cath (where they thread a wire up to the blood vessels that supply blood to your heart in order to assess for blockages), and they found that you have severe build up in these arteries. The cardiologists are recommending that you go to [place] for a bypass surgery that will help open up your blood vessels. When you are discharged, they will likely put you on medications to lower your cholesterol, and also medications to treat high blood pressure and thin your blood. We strongly recommend that you quit smoking, as smoking directly contributes to the build up of these blockages in your arteries. Please follow up with your family doctor. Prescriptions: New atorvastatin 40 mg Tablet 80 mg PO QAM Qty: 30 RF: 0 aspirin [Ecotrin Low Strength] 81 mg Tablet,Delayed Release (Dr/Ec) 81 mg PO QAM Qty: 60 RF: 0 Continued venlafaxine 150 mg capsule,extended release 24hr 150 mg PO DAILY RF: 0 metoprolol succinate 50 mg tablet extended release 24 hr 50 mg PO DAILY RF: 0 alprazolam 0.25 mg tablet 0.25 mg PO BID PRN (Reason: Anxiety) RF: 0 Pentasa 500 mg capsule, extended release 1,000 mg PO AMPM RF: 0 dextroamphetamine-amphetamine 10 mg tablet 10 mg PO BID RF: 0 Stand-Alone Forms: Call Back Authorization, [facility] Discharge Orders: Discharge Order (Routine); Ordered 12/23/18 Ordered By: Cooper Pisano Admission Data Admit Date/Time: 12/22/18 22:08 Attending Provider: Marian Osorio Admit Provider: Leonor Tavares Primary Care Provider: Agus Manzano Other Providers: Josiane Alex Charles C. Service: Telemetry Other Interventions: Discharge Summary Assessment (RN) Last Done: 12/23/18 19:14 DC Date/Time DO NOT enter until pt leaves facility: 12/23/18 19:30 Supervising Physician Co-Signing Physician Notes Resident Physician Supervision Note: I independently interviewed and examined the patient and verified the baird history and physical, reviewed labs and image studies, discussed the case with the resident Dr. Pisano and agree with the findings and care plan. Time spent in discharge 35 min Resident Activity Tracking Resident Involvement: Resident Care Provided Care Provided: Adult Hospital Medicine
--- NOTE | 2018-12-23 15:20 | Cardiac Catheterization ---
Date of Service December 23, 2018 Cardiac Cath Report Cardiac Cath Report Procedure performed: Left heart catheterization, coronary angiography Staff sales leader: Chacorta Hannah MD Indication: The patient is a 68-year-old woman with a history of nonobstructive coronary disease who presents to [facility] with symptoms of nonexertional chest discomfort. Patient had 2 episodes lasting approximate 1- 1/2 hours on each occasion. Symptoms were moderate to severe in nature and were relieved with nitroglycerin upon evaluation in our emergency room. She had some nonspecific EKG changes and some mildly elevated cardiac biomarkers. Based on her history and symptoms she is felt to be a good candidate for coronary angiography for suspected unstable angina. Procedure in detail: The patient was informed of the risks benefits and alternatives to the intended procedure, he understood such and wished to proceed. She was taken to the cardiac catheterization suite in a fasting state. Conscious sedation was administered per protocol and the patient was monitored electrocardiographically throughout today's procedure. The right wrist area was prepped and draped in usual sterile fashion. This area was anesthetized using subcutaneous administration of a lidocaine solution. The right radial artery was then accessed using Seldinger technique, and a arterial sheath was placed at this site over a guidewire. The sheath was used to facilitate passage of the cardiac catheter for coronary angiography and left heart catheterization. Coronary angiogram was then obtained in multiple orthogonal views prior to removal of the catheter. At the conclusion of the procedure the sheath was removed and hemostasis was achieved at the access site using manual pressure. The patient tolerated procedure well, there were no immediate complications. Equipment used: 5 [place] Holstein 4, 5 [place] JL 3.5 Findings: Opening aortic pressure: 122/60 mm of mercury Closing aortic pressure: 146/64 mm of mercury Left ventricular pressure: 132/0 mm of mercury Left ventricular end-diastolic pressure: 5 mmHg No significant gradient across the aortic valve Coronary angiography: Left main: The left main coronary artery and a severe ostial stenosis estimated at 90%. There was occasional ventricularization of the pressure waveform during engagement but no significant dampening. The remainder of the left main coronary had some luminal irregularities prior to bifurcation into the left circumflex and left anterior descending arteries. Left anterior descending: Left anterior descending was a medium sized transapical vessel. He had luminal irregularities throughout its course. There is a discrete 70% stenosis in the midportion of the vessel. There is a discrete 70% stenosis in the midportion of the first diagonal branch. Left circumflex: Left circumflex artery was a nondominant vessel. It produced to large obtuse marginal systems. OM1 had approximately 70% lesion in its proximal portion. OM 2 had a 40% lesion in its proximal portion. Right coronary artery: The right coronary was a dominant vessel producing the posterior descending artery. There is a discrete 99% stenosis in its midportion. There is apparently 60% stenosis prior to bifurcation of the PLB and PDA. Impression: Right dominant coronary system Severe ostial left main disease Obstructive disease involving the mid LAD, first diagonal, OM1 and mid right coronary artery Normal left ventricular pressures Normal left ventricular end-diastolic pressure No evidence of aortic stenosis
[2018-12-23 16:02] LABS: Partial Thromboplastin Ratio 2.2
[2018-12-23 16:04] LABS: Partial Thromboplastin Time 58.5 Seconds (21.0-31.0)
== END 2018-12-23 19:30 | disposition short-term general hospital (02) | DRG 287 ==
LOC: ED 17:45 → SUATTDRO 22:08 → 2S 22:08

== ENCOUNTER 2021-01-25 15:57 | Observation (INO) ==
[2021-01-25] MEDS ORDERED: FAMOTIDINE 20MG IV PUSH 20 MG/5 ML SYR IV STA (16:19)
[2021-01-25] MEDS ORDERED: SODIUM CHLORIDE 0.9% 1000ML 1,000 ML IV ONE (16:23)
[2021-01-25] MEDS ORDERED: ONDANSETRON INJ 2 MG/ML 2 ML VIAL IV STA (16:26)
[2021-01-25] MEDS ORDERED: diphenhydrAMINE 50 MG/ML VIAL IV STA (16:26)
[2021-01-25] MEDS ORDERED: ACETAMINOPHEN 1,000 MG/100 ML VIAL IV STA (16:27)
--- NOTE | 2021-01-25 16:41 | Emergency Department Note ---
Impression & Plan Crohns disease, Intractable abdominal pain, Elevated erythrocyte sedimentation rate, Elevated C-reactive protein ED Provider Note NAME: ARTHUR SIMPSON AGE: 70 SEX: F ARRIVES VIA: Walk-In INFORMANT: Patient, ED PROVIDER(S): Tarun Lane MD CHIEF COMPLAINT: Crohns flare, palpitations PLAN: Disposition: Admit MEDICAL DECISION MAKING: The patient is a pleasant 70-year-old woman with a past medical history of Crohn's disease, CAD, hypertension, hyperlipidemia who presents to the emergency department with ongoing symptoms of Crohn's flare with abdominal pain and numerous watery brown loose stools for which she has been managed outpatient currently on a steroid taper but had worsening symptoms over the past few days with associated palpitations and so presents to emergency department for evaluation. Patient is accompanied by her daughter who is concerned for worsening symptoms including her racing heart. They deny fevers, cough, congestion, urinary symptoms. On arrival patient is uncomfortable but in no acute distress, afebrile with stable vital signs. On exam she appears clinically dry. She has generalized abdominal tenderness without guarding or rebound. WBC 11.4K, nonspecific. H/H within normal limits. Platelets 500K, nonspecific. Chemistry without metabolic acidosis. Electrolytes without significant abnorma lity. LFTs unremarkable. Troponin negative/undetectable. ESR and CRP are markedly elevated at 106 and 15.9, respectively. Lipase not elevated. COVID-[address] abdomen pelvis was performed and demonstrates findings consistent with suspected flare of patient's Crohn's disease with multifocal wall thickening throughout the colon, most pronounced in the ascending and transverse segments compatible with an acute nonspecific colitis. Additional note of luminal narrowing with chronic wall thickening of the terminal ileum is likely secondary to the patient's reported chronic inflammatory bowel disease. On reevaluation the patient reported continued pain and so was given IV morphine. Given the persistence of her Crohn's flare reasonable to meet the patient for the pain management. I did suggest to the patient resuming higher dose steroid treatment however she was reluctant to do this as she reports she becomes too restless. Thus, will defer to admitting team. Case was discussed with Dr. Alex, [facility] hospitalist, who will evaluate the patient for admission. Triage Nursing notes reviewed and agree them. Prior medical records reviewed Vital Signs: reviewed and remarkable for no significant abnormalities Differential diagnosis: Appendicitis, ovarian cyst, ovarian torsion, ectopic , TOA, PID, infections, diverticulitis, UTI, obstruction, mesenteric ischemia, aortic pathology, inflammatory bowel disease, renal colic, PUD, pancreatitis, biliary pathology, hernia, volvulus, constipation, as well as other pathologies. ER treatment provided: See below. Diagnostics interpreted by me: ECG: Normal sinus rhythm, 81 bpm, nonspecific ST and T wave abnormality, no overt ST elevation or depression. Cardiac Monitoring: An order for continuous cardiac monitoring was placed and demonstrated Normal sinus rhythm, 81 bpm, no ectopy. Laboratory studies: See below Imaging studies: See below Consultation(s): Case was discussed with Dr. Alex, [facility] hospitalist, who will evaluate the patient for admission. HPI: The patient is a pleasant 70-year-old woman with a past medical history of Crohn's disease, CAD, hypertension, hyperlipidemia who presents to the emergency department with ongoing symptoms of Crohn's flare with abdominal pain and numerous watery brown loose stools for which she has been managed outpatient currently on a steroid taper but had worsening symptoms over the past few days with associated palpitations and so presents to emergency department for evaluation. Patient is accompanied by her daughter who is concerned for worsening symptoms including her racing heart. They deny fevers, cough, congestion, urinary symptoms. ROS: See above HPI for pertinent positives & negatives. A total of 10 systems reviewed and were otherwise negative. PAST MEDICAL HISTORY:See Below PAST SURGICAL HISTORY:See Below FAMILY HISTORY:See Below SOCIAL HISTORY:See Below HOME MEDICATIONS:See Below ALLERGIES:See Below VITALS:See Below PHYSICAL EXAMINATION: GENERAL: Awake, alert, uncomfortable-appearing, in no distress HENT: Normocephalic, atraumatic. Oropharynx with dry mucous membranes and otherwise unremarkable. EYES: Normal conjunctiva. Sclera non-icteric. NECK: Supple. No nuchal rigidity. FROM. No JVD. RESPIRATORY: Clear to auscultation. CARDIAC: Regular rate, normal rhythm. Extremities warm and well perfused. Pulses equal. ABDOMEN: Soft, non-distended. Generalized abdominal tenderness without guarding or rebound. No masses. RECTAL: Deferred. MUSCULOSKELETAL: Chest examination reveals no tenderness. The back is symmetrical on inspection without obvious abnormality. There is no CVA tenderness to palpation. No joint edema. LOWER EXTREMITIES: Calves are equal size bilaterally and non-tender. No edema. No discoloration. NEURO: Normal sensorium. No sensory or motor deficits noted. SKIN: No rash or jaundice noted. Tarun Lane MD Past Med/Surg History Medical History CAD (coronary artery disease) 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, [facility]: Rojas to LAD, SARIKA to RCA, saphenous vein graft to ramus intermedius, saphenous vein graft to om 2 Crohns disease Diarrhea Failure of rotator cuff repair HTN (hypertension) Hypercholesterolemia Hypokalemia Left shoulder pain Tobacco abuse Surgical History History of coronary artery bypass graft Family History Other Cancer Heart disease Hypertension Social History Smoking Status: Current every day smoker Tobacco Type: Cigarettes Cigarettes Per Day: 10; Second Hand Exposure: No; Tobacco Cessation Education Requested by Patient: No Hx Alcohol Use: Yes Alcohol type: beer and wine Hx Substance Use: No Preferred Language: [place] Communication Ability: Effective Property Analyst Required: No Beliefs That Will Affect Care: None marital status: / Current Living Situation: Alone current occupational status: retired Other Information That Helps Us Care for You: No Feels Safe at Home: Yes Assistive Devices: Glasses Allergies Allergies Allergy/AdvReac Type Severity Reaction Status Date / Time No Known Allergies Allergy Verified 01/25/21 18:32 Home Meds Home Medications Medication Instructions Recorded Confirmed venlafaxine 150 mg PO DAILY 12/22/18 01/25/21 alprazolam 0.25 mg tablet 0.25 - 0.5 mg PO TID PRN tab 02/14/19 01/25/21 metoprolol succinate 50 mg 50 mg PO DAILY tab 07/26/19 01/25/21 tablet,extended release 24 hr omeprazole 20 mg capsule,delayed 20 mg PO DAILY 11/06/20 01/25/21 release prednisone 20 mg tablet 10 mg PO QPM tab 11/06/20 01/25/21 dicyclomine 20 mg PO QID PRN 01/25/21 01/25/21 primidone 100 mg PO BID 01/25/21 01/25/21 vedolizumab [Entyvio] 0 mg IV UD 01/25/21 01/25/21 Previous Rx's Medication Instructions Recorded pravastatin 80 mg tablet 80 mg PO DAILY #90 tab 09/07/20 Results & Data (ED) Vital Signs Vital Signs - 24 hr 01/25/21 16:01 01/25/21 17:12 01/25/21 17:20 Temperature 37.3 C Temperature Source Oral Pulse Rate 106 H 79 79 Pulse Rate [Right Apical] Pulse Rate from SpO2 Sensor 79 78 Pulse Rhythm [Right Apical] Respiratory Rate 20 15 22 Respiratory Effort / Characteristics Non-Labored Respiratory Depth Normal Blood Pressure 119/68 Blood Pressure [Left Arm] Blood Pressure Mean 85 Blood Pressure Mean [Left Arm] Pulse Oximetry 99 95 94 Oxygen Delivery Method Room Air Sepsis Recent Fever Within 48 Hours No Sepsis New/Unexplained Change in Mental Status N/A Sepsis Action Taken by Nursing No Action Required 01/25/21 17:23 01/25/21 17:30 01/25/21 17:35 Temperature 37.4 C Temperature Source Oral Pulse Rate 77 Pulse Rate [Right Apical] 78 Pulse Rate from SpO2 Sensor 78 Pulse Rhythm [Right Apical] Regular Respiratory Rate 20 21 Respiratory Effort / Characteristics Respiratory Depth Normal Blood Pressure 126/62 Blood Pressure [Left Arm] 126/62 Blood Pressure Mean 83 Blood Pressure Mean [Left Arm] 83 Pulse Oximetry 94 94 94 Oxygen Delivery Method Room Air Room Air Sepsis Recent Fever Within 48 Hours Sepsis New/Unexplained Change in Mental Status Sepsis Action Taken by Nursing 01/25/21 18:02 01/25/21 18:10 01/25/21 18:20 Temperature Temperature Source Pulse Rate 83 80 79 Pulse Rate [Right Apical] Pulse Rate from SpO2 Sensor 87 80 79 Pulse Rhythm [Right Apical] Respiratory Rate 12 18 20 Respiratory Effort / Characteristics Respiratory Depth Blood Pressure Blood Pressure [Left Arm] Blood Pressure Mean Blood Pressure Mean [Left Arm] Pulse Oximetry 96 96 96 Oxygen Delivery Method Sepsis Recent Fever Within 48 Hours Sepsis New/Unexplained Change in Mental Status Sepsis Action Taken by Nursing 01/25/21 18:39 01/25/21 19:00 01/25/21 19:30 Temperature Temperature Source Pulse Rate 84 83 81 Pulse Rate [Right Apical] Pulse Rate from SpO2 Sensor 83 81 Pulse Rhythm [Right Apical] Respiratory Rate 17 12 Respiratory Effort / Characteristics Respiratory Depth Blood Pressure 138/76 115/65 Blood Pressure [Left Arm] Blood Pressure Mean 96 81 Blood Pressure Mean [Left Arm] Pulse Oximetry 92 94 Oxygen Delivery Method Sepsis Recent Fever Within 48 Hours Sepsis New/Unexplained Change in Mental Status Sepsis Action Taken by Nursing 01/25/21 20:00 Temperature Temperature Source Pulse Rate 77 Pulse Rate [Right Apical] Pulse Rate from SpO2 Sensor 77 Pulse Rhythm [Right Apical] Respiratory Rate 16 Respiratory Effort / Characteristics Respiratory Depth Blood Pressure 113/50 L Blood Pressure [Left Arm] Blood Pressure Mean 71 Blood Pressure Mean [Left Arm] Pulse Oximetry 98 Oxygen Delivery Method Sepsis Recent Fever Within 48 Hours Sepsis New/Unexplained Change in Mental Status Sepsis Action Taken by Nursing Laboratory Data Attestation: I reviewed the patient's lab results. Result diagrams: 01/25/21 16:21 01/25/21 16: Lab Results 01/25/21 01/25/21 01/25/21 Range/Units 16:21 16:21 16:21 WBC 11.46 H (4.8-10.8) K/uL RBC 4.54 (4.2-5.4) M/uL Hgb 12.7 (12.0-16.0) g/dL Hct 38.5 (37-47) % MCV 84.8 (80-100) fL MCH 28.0 (25-34) pg MCHC 33.0 (32-36) g/dL RDW Std Deviation 43.8 (36.4-46.3) fL RDW Coeff of Harish 14.0 (11.5-14.5) % Plt Count 546 H (130-400) K/uL MPV 8.4 (7.4-10.4) fL Immature Gran % (Auto) 0.3 % Neut % (Auto) 71.8 % Lymph % (Auto) 16.4 % [place] % (Auto) 10.6 % Eos % (Auto) 0.8 % Baso % (Auto) 0.1 % Neut # (Auto) 8.22 H (1.4-6.5) K/uL Lymph # (Auto) 1.88 (1.2-3.4) K/uL [place] # (Auto) 1.22 H (0.11-0.59) K/uL Eos # (Auto) 0.09 (0-0.5) K/uL Baso # (Auto) 0.01 (0-0.2) K/uL Immature Gran # (Auto) 0.04 H (0.00-0.02) K/uL ESR 106 H (0-30) mm/hr Sodium 133 L (136-145) mmol/L Potassium 3.4 L (3.5-5.1) mmol/L Chloride 100 (98-107) mmol/L Carbon Dioxide 28 (21-32) mmol/L Anion Gap 5.0 (3-11) BUN 9 (7-18) mg/dl Creatinine 0.55 L (0.6-1.2) mg/dl Est Cr Clr Drug Dosing 72.5 ml/min Est GFR ( Amer) 110.9 ml/min Est GFR (Non-Af Amer) 95.7 ml/min BUN/Creatinine Ratio 15.6 (10-20) Glucose 81 (70-99) mg/dl Calcium 9.2 (8.5-10.1) mg/dl Magnesium (1.8-2.4) mg/dl Total Bilirubin 0.4 (0.2-1) mg/dl AST 21 (15-37) U/L ALT 56 (12-78) U/L Alkaline Phosphatase 90 (45-117) U/L Troponin I < 0.015 (0-0.045) ng/ml C-Reactive Protein 15.90 H (0-0.29) mg/dl Total Protein 7.2 (6.4-8.2) gm/dl Albumin 2.6 L (3.4-5.0) gm/dl Globulin 4.6 H (2.5-4.0) gm/dl Albumin/Globulin Ratio 0.6 L (0.9-2) Lipase 83 (73-393) U/L COVID-19 Eval Order SARS-CoV-2 (PCR) (Negative) 01/25/21 01/25/21 01/25/21 Range/Units 16:21 16:33 16:33 WBC (4.8-10.8) K/uL RBC (4.2-5.4) M/uL Hgb (12.0-16.0) g/dL Hct (37-47) % MCV (80-100) fL MCH (25-34) pg MCHC (32-36) g/dL RDW Std Deviation (36.4-46.3) fL RDW Coeff of Harish (11.5-14.5) % Plt Count (130-400) K/uL MPV (7.4-10.4) fL Immature Gran % (Auto) % Neut % (Auto) % Lymph % (Auto) % [place] % (Auto) % Eos % (Auto) % Baso % (Auto) % Neut # (Auto) (1.4-6.5) K/uL Lymph # (Auto) (1.2-3.4) K/uL [place] # (Auto) (0.11-0.59) K/uL Eos # (Auto) (0-0.5) K/uL Baso # (Auto) (0-0.2) K/uL Immature Gran # (Auto) (0.00-0.02) K/uL ESR (0-30) mm/hr Sodium (136-145) mmol/L Potassium (3.5-5.1) mmol/L Chloride (98-107) mmol/L Carbon Dioxide (21-32) mmol/L Anion Gap (3-11) BUN (7-18) mg/dl Creatinine (0.6-1.2) mg/dl Est Cr Clr Drug Dosing ml/min Est GFR ( Amer) ml/min Est GFR (Non-Af Amer) ml/min BUN/Creatinine Ratio (10-20) Glucose (70-99) mg/dl Calcium (8.5-10.1) mg/dl Magnesium 2.2 (1.8-2.4) mg/dl Total Bilirubin (0.2-1) mg/dl AST (15-37) U/L ALT (12-78) U/L Alkaline Phosphatase (45-117) U/L Troponin I (0-0.045) ng/ml C-Reactive Protein (0-0.29) mg/dl Total Protein (6.4-8.2) gm/dl Albumin (3.4-5.0) gm/dl Globulin (2.5-4.0) gm/dl Albumin/Globulin Ratio (0.9-2) Lipase (73-393) U/L COVID-19 Eval Order Covid19 at [facility] SARS-CoV-2 (PCR) NEGATIVE (Negative) Administered Medications Alprazolam (Alprazolam 0.5 Mg Tablet) 0.5 mg PO TID PRN PRN Reason: Anxiety Stop: 02/24/21 22:22 Last Admin: 01/25/21 22:43 Dose: 0.5 mg Documented by: [id number] Dicyclomine HCl (Dicyclomine Hcl 20 Mg Tab) 20 mg PO QID PRN PRN Reason: Abdominal Spasm Stop: 02/24/21 22:22 Last Admin: 01/25/21 22:43 Dose: 20 mg Documented by: [id number] Enoxaparin Sodium (Enoxaparin Inj 40 Mg/0.4 Ml Syr) 40 mg SQ HS PRASHANT Stop: 02/24/21 22:29 Last Admin: 01/25/21 22:44 Dose: 40 mg Documented by: [id number] Sodium Chloride (Nss 1000ml) 1,000 mls @ 125 mls/hr IV .Q8H PRASHANT Stop: 01/26/21 14:22 Last Admin: 01/25/21 22:34 Dose: 125 mls/hr Documented by: [id number] Morphine Sulfate (Morphine Sulfate 2 Mg/Ml Carp) 2 mg IV Q4H PRN PRN Reason: Pain Stop: 02/08/21 22:22 Last Admin: 01/25/21 22:31 Dose: 2 mg Documented by: [id number] Discontinued Medications Diphenhydramine HCl (Diphenhydramine 50 Mg/Ml Vial) 25 mg IV NOW STA Stop: 01/25/21 16:27 Last Admin: 01/25/21 16:43 Dose: 25 mg Documented by: [id number] Famotidine (Pepcid 20mg Iv Push) 20 mg in 5 mls @ 2.5 mls/min IV NOW STA Stop: 01/25/21 16:20 Last Admin: 01/25/21 16:43 Dose: 2.5 mls/min Documented by: [id number] Sodium Chloride (Nss 1000ml) 1,000 mls @ 999 mls/hr IV .Q1H1M ONE Stop: 01/25/21 17:23 Last Infusion: 01/25/21 18:02 Dose: 0 mls/hr Documented by: [id number] Admin: 01/25/21 16:44 Dose: 999 mls/hr Documented by: [id number] Acetaminophen (Ofirmev) 1,000 mg in 100 mls @ 400 mls/hr IV NOW STA Stop: 01/25/21 16:41 Last Infusion: 01/25/21 18:02 Dose: 0 mls/hr Documented by: [id number] Admin: 01/25/21 16:43 Dose: 400 mls/hr Documented by: [id number] Ioversol (Optiray 320 100ml) 94 ml IV ONCE ONE Stop: 01/25/21 17:55 Last Admin: 01/25/21 17:54 Dose: 94 ml Documented by: [id number] Metoprolol Succinate (Metoprolol Succ 50mg Ext Rel Tab) 50 mg PO NOW STA Stop: 01/25/21 20:04 Last Admin: 01/25/21 20:38 Dose: 50 mg Documented by: [id number] Morphine Sulfate (Morphine Sulfate 4 Mg/Ml 1 Ml Carp\Vial) 4 mg IV NOW STA Stop: 01/25/21 18:44 Last Admin: 01/25/21 18:50 Dose: 4 mg Documented by: [id number] Ondansetron HCl (Ondansetron Inj 2 Mg/Ml 2 Ml Vial) 4 mg IV NOW STA Stop: 01/25/21 16:27 Last Admin: 01/25/21 16:43 Dose: 4 mg Documented by: [id number] Potassium Chloride (Potassium Chloride Crtab 20 Meq Tabcr) 40 meq PO NOW STA Stop: 01/25/21 22:27 Last Admin: 01/25/21 22:43 Dose: 40 meq Documented by: [id number] Prednisone (Prednisone 20 Mg Tab) 20 mg PO NOW STA Stop: 01/25/21 20:04 Last Admin: 01/25/21 20:38 Dose: 20 mg Documented by: [id number] Primidone (Primidone 50 Mg Tab) 100 mg PO NOW STA Stop: 01/25/21 20:04 Last Admin: 01/25/21 20:38 Dose: 100 mg Documented by: [id number] Imaging Data Radiologist's Impression: Abdomen/Pelvis CT 01/25/21 16:[address] WITH IV CONTRAST CT DOSE: 250.76 mGy.cm HISTORY: Acute generalized abdominal pain with history of inflammatory bowel disease chrohns, abd pain TECHNIQUE: Multiaxial CT images of the abdomen and pelvis were performed following the IV administration of 94 cc of Optiray, A dose lowering technique was utilized adhering to the principles of ALARA. COMPARISON STUDY: CTA abdomen and pelvis 08/04/2018 FINDINGS: Imaged inferior cardiac chambers are unremarkable. Left Bochdalek hernia. The lung bases. No pneumatosis or pneumoperitoneum. The spleen, pancreas and gallbladder are unremarkable. Unchanged thickening of the adrenal glands suggestive of hyperplasia. Unremarkable liver. Patency of the hepatic and portal veins. Unremarkable kidneys. No hydronephrosis. Mild urinary bladder distention. The uterus is either atrophic or surgically absent. No adnexal mass lesion. Extensive atherosclerosis of the abdominal aorta and branch vessels. No aneurysm. No adenopathy. Small hiatal hernia. No bowel obstruction. Colonic diverticulosis. There is multifocal wall thickening throughout the colon, most pronounced in the ascending and transverse segments with pericolonic stranding. There is luminal narrowing with circumferential wall thickening involving a 7 cm segment of distal ileum which is similar to comparison. The visualized appendix appears noninflamed. No fistula or sinus tract is identified. No abscess. Scattered small bowel air-fluid levels. Unremarkable soft tissues. No acute fracture or suspicious bone lesion. Demineralized appearance of the bones. Chronic L1 compression deformity with kyphoplasty and retropulsion. IMPRESSION: 1. Multifocal wall thickening throughout the colon, most pronounced in the ascending and transverse segments compatible with an acute nonspecific colitis. 2. Luminal narrowing with chronic wall thickening of the terminal ileum is likely secondary to the patient's reported chronic inflammatory bowel disease. 3. No bowel obstruction or pneumoperitoneum 4. Small hiatal hernia. 5. Additional findings as above. ACT 112: Negative or not required by law. The above report was generated using voice recognition software. It may contain grammatical, syntax or spelling errors. Electronically signed by: Carl Beckwith M.D. 01/25/2021 6:12 PM Chest X-Ray 01/25/21 16:21 XR chest 1V portable CLINICAL HISTORY: Chest Pain COMPARISON STUDY: December 22, 2018 FINDINGS: No pneumothorax. No pleural effusion. Lung volumes are increased with flattening of right and left hemidiaphragms. No large infiltrates or consolidative lesions are seen. Cardiomediastinal silhouette is prominent. Aorta is calcified. No significant pulmonary vascular congestion.. Osseous structures: Osteopenia. Mild thoracolumbar scoliosis. IMPRESSION: 1. COPD pattern. No large infiltrates or consolidative lesions. 2. Prominent cardiac silhouette. ACT 112: Negative or not required by law. The above report was generated using voice recognition software. It may contain grammatical, syntax or spelling errors. Electronically signed by: Crystal Easley DO 01/25/2021 4:45 PM Discharge Plan Visit Data Chief Complaint: Abdominal Pain Stated Complaint: ABDOMINAL PAIN, DIARRHEA, HEART PALPITATIONS ED Provider: Tarun Lane Discharge Problem: Crohns disease, Intractable abdominal pain, Elevated erythrocyte sedimentation rate, Elevated C-reactive protein Patient Disposition: Admitted As Inpatient Discharge Instructions Interventions: ED Discharge Assessment Last Done: 01/25/21 22:14 Discharge Problem: Crohns disease Qualifiers: Gastrointestinal tract location: unspecified location Digestive disease complication type: without complication Qualified Code(s): K50.90 - Crohn's disease, unspecified, without complications
[2021-01-25 16:44] LABS: Basophils # (auto) 0.01 K/uL (0-0.2); Basophils % (auto) 0.1 %; Eosinophils # (auto) 0.09 K/uL (0-0.5); Eosinophils % (auto) 0.8 %; Hematocrit (blood only) 38.5 % (37-47); Hemoglobin 12.7 g/dL (12.0-16.0); Immature Granulocytes # (auto) 0.04 K/uL (0.00-0.02); Immature Granulocytes % (auto) 0.3 %; Lymphocytes # (auto) 1.88 K/uL (1.2-3.4); Lymphocytes % (auto) 16.4 %; Mean Corpuscular Volume 84.8 fL (80-100); Mean Platelet Volume 8.4 fL (7.4-10.4); Monocytes # (auto) 1.22 K/uL (0.11-0.59); Monocytes % (auto) 10.6 %; Neutrophils # (auto) 8.22 K/uL (1.4-6.5); Neutrophils % (auto) 71.8 %; Platelet Count 546 K/uL (130-400); RDW Standard Deviation 43.8 fL (36.4-46.3); Red Blood Count 4.54 M/uL (4.2-5.4); White Blood Count 11.46 K/uL (4.8-10.8)
--- NOTE | 2021-01-25 16:47 | XRay Report ---
XR chest 1V portable CLINICAL HISTORY: Chest Pain COMPARISON STUDY: December 22, 2018 FINDINGS: No pneumothorax. No pleural effusion. Lung volumes are increased with flattening of right and left hemidiaphragms. No large infiltrates or consolidative lesions are seen. Cardiomediastinal silhouette is prominent. Aorta is calcified. No significant pulmonary vascular congestion.. Osseous structures: Osteopenia. Mild thoracolumbar scoliosis. IMPRESSION: 1. COPD pattern. No large infiltrates or consolidative lesions. 2. Prominent cardiac silhouette. ACT 112: Negative or not required by law. The above report was generated using voice recognition software. It may contain grammatical, syntax o r spelling errors. Electronically signed by: Crystal Easley DO 01/25/2021 4:45 PM
[2021-01-25 17:02] LABS: Albumin Level 2.6 gm/dl (3.4-5.0); BUN Creatinine Ratio 15.6 (10-20); Blood Urea Nitrogen 9 mg/dl (7-18); Calcium 9.2 mg/dl (8.5-10.1); Carbon Dioxide 28 mmol/L (21-32); Chloride 100 mmol/L (98-107); Creatinine Clr Calc Pharmacy 72.5 ml/min; Est GFR (African American) 110.9 ml/min; Est GFR (Non-African American) 95.7 ml/min; Glucose 81 mg/dl (70-99); Lipase 83 U/L (73-393); Potassium 3.4 mmol/L (3.5-5.1); Sodium 133 mmol/L (136-145)
[2021-01-25 17:11] LABS: Alanine Aminotransferase 56 U/L (12-78); Albumin Globulin Ratio 0.6 (0.9-2); Alkaline Phosphatase 90 U/L (45-117); Aspartate Aminotransferase 21 U/L (15-37); Bilirubin,Total 0.4 mg/dl (0.2-1); Globulin 4.6 gm/dl (2.5-4.0); Total Protein 7.2 gm/dl (6.4-8.2); Troponin I < 0.015 ng/ml (0-0.045)
[2021-01-25] MEDS ORDERED: OPTIRAY 320 100ml IV ONE (17:54)
--- NOTE | 2021-01-25 18:13 | CT Scan Report ---
ABDOMEN AND PELVIS CT WITH IV CONTRAST CT DOSE: 250.76 mGy.cm HISTORY: Acute generalized abdominal pain with history of inflammatory bowel disease ernst, abd aries in TECHNIQUE: Multiaxial CT images of the abdomen and pelvis were performed following the IV administrat ion of 94 cc of Optiray, A dose lowering technique was utilized adhering to the principles of ALARA. COMPARISON STUDY: CTA abdomen and pelvis 08/04/2018 FINDINGS: Imaged inferior cardiac chambers are unremarkable. Left Bochdalek hernia. The lung bases. N o pneumatosis or pneumoperitoneum. The spleen, pancreas and gallbladder are unremarkable. Unchanged t hickening of the adrenal glands suggestive of hyperplasia. Unremarkable liver. Patency of the hepatic and portal veins. Unremarkable kidneys. No hydronephrosis. Mild urinary bladder distention. The uterus is either atroph ic or surgically absent. No adnexal mass lesion. Extensive atherosclerosis of the abdominal aorta and branch vessels. No aneurysm. No adenopathy. Small hiatal hernia. No bowel obstruction. Colonic diverticulosis. There is multifocal wall thickenin g throughout the colon, most pronounced in the ascending and transverse segments with pericolonic str anding. There is luminal narrowing with circumferential wall thickening involving a 7 cm segment of d istal ileum which is similar to comparison. The visualized appendix appears noninflamed. No fistula o r sinus tract is identified. No abscess. Scattered small bowel air-fluid levels. Unremarkable soft ti ssues. No acute fracture or suspicious bone lesion. Demineralized appearance of the bones. Chronic L1 compression deformity with kyphoplasty and retropulsion. IMPRESSION: 1. Multifocal wall thickening throughout the colon, most pronounced in the ascending and transverse s egments compatible with an acute nonspecific colitis. 2. Luminal narrowing with chronic wall thickening of the terminal ileum is likely secondary to the aries brooks's reported chronic inflammatory bowel disease. 3. No bowel obstruction or pneumoperitoneum 4. Small hiatal hernia. 5. Additional findings as above. ACT 112: Negative or not required by law. The above report was generated using voice recognition software. It may contain grammatical, syntax o r spelling errors. Electronically signed by: Carl Beckwith M.D. 01/25/2021 6:12 PM
[2021-01-25] MEDS ORDERED: MoRPHine SULFATE 4 MG/ML 1 ML CARP\\VIAL IV STA (18:43)
[2021-01-25] MEDS ORDERED: predniSONE 20 MG TAB PO STA (20:03)
[2021-01-25] MEDS ORDERED: PRIMIDONE 50 MG TAB PO STA (20:03)
[2021-01-25] MEDS ORDERED: METOPROLOL SUCC 50MG EXT REL TAB PO STA (20:03)
--- NOTE | 2021-01-25 20:13 | History & Physical Report ---
Date of Service January 25, 2021 Assessment & Plan (1) Diarrhea: 70yo female with history of Crohns disease presenting with 3 days of watery diarrhea, abdominal pain. She is on Entyvio injections as well as steroid taper. CT of the abdomen as above reveals multifocal wall thickening throughout the colon most pronounce din the ascending and transverse segments. ?Crohns flare contributing to current symptoms -Admission to medical -Check stool for c. diff, stool culture and stool WBC -IVF and electrolyte repletion -Continue Prednisone at current dose - will give 20mg tonight and start on 10mg daily tomorrow -GI consultation appreciated -Bentyl PRN spasm -Zofran PRN nausea -Morphine PRN pain Present on Admission?: Yes (2) Crohns disease: Patient with longstanding history of Crohns disease presenting with diarrhea and abdominal pain as above. ?Crohns flare -Treatment as above -?resuming Mesalamine -GI consultation appreciated Present on Admission?: Yes (3) HTN (hypertension): Blood pressure mildly elevated, presently 151/73 -Pain control as above -Continue Metoprolol 50mg po qHS -Continue to monitor Present on Admission?: Yes (4) CAD (coronary artery disease): Chronic. Stable. Patient is s/p CABG x 4V performed December 2018. She denies chest pain -Continue Metoprolol -Continue Atorvastatin Present on Admission?: Yes (5) Hyperlipidemia: Chronic -Continue Pravastatin Present on Admission?: Yes (6) Depression: Chronic -Continue Venlafaxine F/E/N - NSS at 125mL/hr x 2 liters, K repletion, repeat labs in AM, Clear liquid diet as tolerated Ppx - Lovenox 40 Code - DNR/DNI per discussion with patient Dispo - Admit to medical Present on Admission?: Yes History of Present Illness Chief Complaint: Abdominal pain, diarrhea Primary Care Provider: Agus Manzano MD Cary Ansari is a 70yo female with history fo HTN, HLP, CAD and Crohns colitis pr esenting with abdominal pain and diarrhea. Patient has longstanding history of Crohn's disease. She was formerly on Humira which was stopped due to ineffectiveness. She was placed on Prednisone 40mg long taper and has since been started on Vedolizumab (Entyvio). She had her first injection on 12/31/20 and the second on 01/14/21. Today is her last day of Prednisone 20mg daily and she is to start 10mg daily tomorrow. She does not wish to increase her steroids as they make her feel very jittery. Patient complaining of 3 days of severe diarrhea as well as abdominal pain, cramping. Diarrhea is watery, non-bloody, non-mucoid. She states that it "runs out of her". She has been having difficulty eating or tolerating PO as it leads to diarrhea. She denies fever/chills/distention. Denies nausea/vomiting. No recent antibiotic use or sick contacts. Patient afebrile, HD stable in ER ER Course: TYlenol, Benadryl, Pepcid, Morphine, Zofran, NSS Allergies Allergy/AdvReac Type Severity Reaction Status Date / Time No Known Allergies Allergy Verified 01/25/21 18:32 Home Medications Medication Instructions Recorded Confirmed Type venlafaxine 150 mg PO DAILY 12/22/18 01/25/21 History alprazolam 0.25 mg tablet 0.25 - 0.5 mg PO TID PRN tab 02/14/19 01/25/21 History metoprolol succinate 50 mg 50 mg PO DAILY tab 07/26/19 01/25/21 History tablet,extended release 24 hr pravastatin 80 mg tablet 80 mg PO DAILY #90 tab 09/07/20 01/25/21 Rx omeprazole 20 mg capsule,delayed 20 mg PO DAILY 11/06/20 01/25/21 History release prednisone 20 mg tablet 10 mg PO QPM tab 11/06/20 01/25/21 History dicyclomine 20 mg PO QID PRN 01/25/21 01/25/21 History primidone 100 mg PO BID 01/25/21 01/25/21 History vedolizumab [Entyvio] 0 mg IV UD 01/25/21 01/25/21 History Past Med/Surg History Medical History (Updated 01/26/21 @ 00:55 by Josiane Alex DO) CAD (coronary artery disease) 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, [facility]: Rojas to LAD, SARIKA to RCA, saphenous vein graft to ramus intermedius, saphenous vein graft to om 2 Crohns disease Diarrhea Failure of rotator cuff repair HTN (hypertension) Hypercholesterolemia Hypokalemia Left shoulder pain Tobacco abuse Surgical History (Updated 01/26/21 @ 00:19 by Josiane Alex DO) History of coronary artery bypass graft Family History Other Cancer Heart disease Hypertension Social History Smoking Status: Current every day smoker Tobacco Type: Cigarettes Cigarettes Per Day: 10; Second Hand Exposure: No; Tobacco Cessation Education Requested by Patient: No Hx Alcohol Use: Yes Alcohol type: beer and wine Hx Substance Use: No Preferred Language: Algerian Communication Ability: Effective Correctional Maintenance Technician Required: No Beliefs That Will Affect Care: None marital status: / Current Living Situation: Alone current occupational status: retired Other Information That Helps Us Care for You: No Feels Safe at Home: Yes Assistive Devices: Glasses Review of Systems Review of Systems: All systems reviewed & are unremarkable except as noted in HPI & below Denies dizziness, chills Does have occasional palpitations Physical Exam Physical Exam: General: patient resting uncomfortable in appearance,NAD, non- toxic, AA&O x 4 Skin: warm, dry, intact, no rashes or lesions HEENT: NC/AT, PERRL, EOMI, anicteric sclera, conjunctiva without injection, external ear normal to inspection and nontender, nares patent, slightly dry mucus membranes, dentition intact, no oropharyngeal lesions, neck supple, trachea midline, no LAD, no thyromegaly, no JVD Heart: +S1/S2, regular, 3/6 NEIL across precordium Lungs: equal air entry bilaterally, no rales/rhonchi/wheezes Abd: +BS, soft, mildly tender with deep palpation, no rebound/guarding/perit mendez signs, no masses/organomegaly/ascites Ext: warm, 2+ pulses in UE/LE bilaterally, no clubbing/cyanosis or edema Neuro: nonfocal, patient AA&O x 4, speech intact, no facial droop, moving all extremities on command with equal strength 5/5 Results & Data Results & Data ([facility]) Vital Signs (Past 12 Hours) Vital Signs Temp Pulse Pulse Resp BP BP Pulse Ox 01/25/21 17:35 94 01/25/21 17:23 37.4 C 78 20 126/62 94 01/25/21 16:01 37.3 C 106 H 20 119/68 99 Laboratory Results Laboratory Results WBC 11.46 K/uL (4.8-10.8) H 01/25/21 16:21 RBC 4.54 M/uL (4.2-5.4) 01/25/21 16:21 Hgb 12.7 g/dL (12.0-16.0) 01/25/21 16:21 Hct 38.5 % (37-47) 01/25/21 16:21 MCV 84.8 fL (80-100) 01/25/21 16:21 MCH 28.0 pg (25-34) 01/25/21 16:21 MCHC 33.0 g/dL (32-36) 01/25/21 16:21 RDW Std Deviation 43.8 fL (36.4-46.3) 01/25/21 16:21 RDW Coeff of Harish 14.0 % (11.5-14.5) 01/25/21 16:21 Plt Count 546 K/uL (130-400) H 01/25/21 16:21 MPV 8.4 fL (7.4-10.4) 01/25/21 16:21 Immature Gran % (Auto) 0.3 % 01/25/21 16:21 Neut % (Auto) 71.8 % 01/25/21 16:21 Lymph % (Auto) 16.4 % 01/25/21 16:21 Armstrong % (Auto) 10.6 % 01/25/21 16:21 Eos % (Auto) 0.8 % 01/25/21 16:21 Baso % (Auto) 0.1 % 01/25/21 16:21 Neut # (Auto) 8.22 K/uL (1.4-6.5) H 01/25/21 16:21 Lymph # (Auto) 1.88 K/uL (1.2-3.4) 01/25/21 16:21 Armstrong # (Auto) 1.22 K/uL (0.11-0.59) H 01/25/21 16:21 Eos # (Auto) 0.09 K/uL (0-0.5) 01/25/21 16:21 Baso # (Auto) 0.01 K/uL (0-0.2) 01/25/21 16:21 Immature Gran # (Auto) 0.04 K/uL (0.00-0.02) H 01/25/21 16:21 ESR 106 mm/hr (0-30) H 01/25/21 16:21 Sodium 133 mmol/L (136-145) L 01/25/21 16:21 Potassium 3.4 mmol/L (3.5-5.1) L 01/25/21 16:21 Chloride 100 mmol/L (98-107) 01/25/21 16:21 Carbon Dioxide 28 mmol/L (21-32) 01/25/21 16:21 Anion Gap 5.0 (3-11) 01/25/21 16:21 BUN 9 mg/dl (7-18) 01/25/21 16:21 Creatinine 0.55 mg/dl (0.6-1.2) L 01/25/21 16:21 Est Cr Clr Drug Dosing 72.5 ml/min 01/25/21 16:21 Est GFR ( Amer) 110.9 ml/min 01/25/21 16:21 Est GFR (Non-Af Amer) 95.7 ml/min 01/25/21 16:21 BUN/Creatinine Ratio 15.6 (10-20) 01/25/21 16:21 Glucose 81 mg/dl (70-99) 01/25/21 16:21 Calcium 9.2 mg/dl (8.5-10.1) 01/25/21 16:21 Magnesium 2.2 mg/dl (1.8-2.4) 01/25/21 16:21 Total Bilirubin 0.4 mg/dl (0.2-1) 01/25/21 16:21 AST 21 U/L (15-37) 01/25/21 16:21 ALT 56 U/L (12-78) 01/25/21 16:21 Alkaline Phosphatase 90 U/L (45-117) 01/25/21 16:21 Troponin I < 0.015 ng/ml (0-0.045) 01/25/21 16:21 C-Reactive Protein 15.90 mg/dl (0-0.29) H 01/25/21 16:21 Total Protein 7.2 gm/dl (6.4-8.2) 01/25/21 16:21 Albumin 2.6 gm/dl (3.4-5.0) L 01/25/21 16:21 Globulin 4.6 gm/dl (2.5-4.0) H 01/25/21 16:21 Albumin/Globulin Ratio 0.6 (0.9-2) L 01/25/21 16:21 Lipase 83 U/L (73-393) 01/25/21 16:21 COVID-19 Eval Order Covid19 at [facility] 01/25/21 16:33 SARS-CoV-2 (PCR) NEGATIVE (Negative) 01/25/21 16:33 Impressions Abdomen/Pelvis CT 01/25/21 16:[address] WITH IV CONTRAST CT DOSE: 250.76 mGy.cm HISTORY: Acute generalized abdominal pain with history of inflammatory bowel disease chrohns, abd pain TECHNIQUE: Multiaxial CT images of the abdomen and pelvis were performed following the IV administration of 94 cc of Optiray, A dose lowering technique was utilized adhering to the principles of ALARA. COMPARISON STUDY: CTA abdomen and pelvis 08/04/2018 FINDINGS: Imaged inferior cardiac chambers are unremarkable. Left Bochdalek hernia. The lung bases. No pneumatosis or pneumoperitoneum. The spleen, pancreas and gallbladder are unremarkable. Unchanged thickening of the adrenal glands suggestive of hyperplasia. Unremarkable liver. Patency of the hepatic and portal veins. Unremarkable kidneys. No hydronephrosis. Mild urinary bladder distention. The uterus is either atrophic or surgically absent. No adnexal mass lesion. Extensive atherosclerosis of the abdominal aorta and branch vessels. No aneurysm. No adenopathy. Small hiatal hernia. No bowel obstruction. Colonic diverticulosis. There is multifocal wall thickening throughout the colon, most pronounced in the ascending and transverse segments with pericolonic stranding. There is luminal narrowing with circumferential wall thickening involving a 7 cm segment of distal ileum which is similar to comparison. The visualized appendix appears noninflamed. No fistula or sinus tract is identified. No abscess. Scattered small bowel air-fluid levels. Unremarkable soft tissues. No acute fracture or suspicious bone lesion. Demineralized appearance of the bones. Chronic L1 compression deformity with kyphoplasty and retropulsion. IMPRESSION: 1. Multifocal wall thickening throughout the colon, most pronounced in the ascending and transverse segments compatible with an acute nonspecific colitis. 2. Luminal narrowing with chronic wall thickening of the terminal ileum is likely secondary to the patient's reported chronic inflammatory bowel disease. 3. No bowel obstruction or pneumoperitoneum 4. Small hiatal hernia. 5. Additional findings as above. ACT 112: Negative or not required by law. The above report was generated using voice recognition software. It may contain grammatical, syntax or spelling errors. Electronically signed by: Carl Beckwith M.D. 01/25/2021 6:12 PM Chest X-Ray 01/25/21 16:21 XR chest 1V portable CLINICAL HISTORY: Chest Pain COMPARISON STUDY: December 22, 2018 FINDINGS: No pneumothorax. No pleural effusion. Lung volumes are increased with flattening of right and left hemidiaphragms. No large infiltrates or consolidative lesions are seen. Cardiomediastinal silhouette is prominent. Aorta is calcified. No significant pulmonary vascular congestion.. Osseous structures: Osteopenia. Mild thoracolumbar scoliosis. IMPRESSION: 1. COPD pattern. No large infiltrates or consolidative lesions. 2. Prominent cardiac silhouette. ACT 112: Negative or not required by law. The above report was generated using voice recognition software. It may contain grammatical, syntax or spelling errors. Electronically signed by: Crystal Easley DO 01/25/2021 4:45 PM ECG Additional Comments: EKG NSR at 81, normal axis, RJ=503, QRS=80, Jkb=681, T wave changes present in anterior leads Code Status & VTE Plan VTE Prophylaxis Plan VTE Prophylaxis will be ordered: Yes PG Care Time/CCT Total # of Minutes Spent Total Time Spent with Patient: Total time spent is greater than 50% in coordination of care (as documented) at patient's floor/unit and/or counseling patient: Coding Level of Care Code 14868 Initial Inpt Care Lvl 3 Diagnoses Diarrhea R19.7 Diarrhea type: unspecified type Crohns disease K50.90 Gastrointestinal tract location: unspecified location Digestive disease complication type: without complication HTN (hypertension) I10 Hypertension type: primary hypertension CAD (coronary artery disease) I25.10 Coronary Disease-Associated Artery/Lesion type: [place] artery [place] vs. transplanted heart: [place] heart Associated angina: without angina Hyperlipidemia E78.5 Hyperlipidemia type: unspecified Depression F32.9 Depression Type: major depressive disorder Major depression recurrence: unspecified whether recurrent Active/Remission status: remission status unspecified (1) CAD (coronary artery disease) Coronary Disease-Associated Artery/Lesion type: [place] artery [place] vs. transplanted heart: [place] heart Associated angina: without angina Qualified C ode(s): I25.10 - Atherosclerotic heart disease of [place] coronary artery without angina pectoris (2) Crohns disease Gastrointestinal tract location: unspecified location Digestive disease complication type: without complication Qualified Code(s): K50.90 - Crohn's disease, unspecified, without complications (3) Diarrhea Diarrhea type: unspecified type Qualified Code(s): R19.7 - Diarrhea, unspecified (4) Hyperlipidemia Hyperlipidemia type: unspecified Qualified Code(s): E78.5 - Hyperlipidemia, unspecified (5) HTN (hypertension) Hypertension type: primary hypertension Qualified Code(s): I10 - Essential (primary) hypertension (6) Depression Depression Type: major depressive disorder Major depression recurrence: unspecified whether recurrent Active/Remission status: remission status unspecified Qualified Code(s): F32.9 - Major depressive disorder, single episode, unspecified
[2021-01-25] MEDS ORDERED: ACETAMINOPHEN 325 MG TAB PO PRN (22:23)
[2021-01-25] MEDS ORDERED: ONDANSETRON INJ 2 MG/ML 2 ML VIAL IV PRN (22:23)
[2021-01-25] MEDS ORDERED: POTASSIUM CHLORIDE CRTAB 20 MEQ TABCR PO STA (22:26)
[2021-01-25] MEDS: MoRPHine SULFATE 2 MG/ML CARP IV PRN (22:31)
[2021-01-25] MEDS: SODIUM CHLORIDE 0.9% 1000ML 1,000 ML IV SCH (22:34)
[2021-01-25] MEDS: DICYCLOMINE HCL 20 MG TAB PO PRN (22:43)
[2021-01-25] MEDS: ALPRAZolam 0.5 MG TABLET PO PRN (22:43)
[2021-01-25] MEDS: ENOXAPARIN INJ 40 MG/0.4 ML SYR SQ SCH (22:44)
[2021-01-26] MEDS: MoRPHine SULFATE 2 MG/ML CARP IV PRN ×2 (02:41→07:40)
[2021-01-26 03:33] LABS: Appearance Urine Clear (Clear); Bacteria Urine Automated Negative (Negative); Bilirubin Urine Negative (Negative); Blood Urine 1+ (Negative); Cast Urine Automated 0 /lpf (0-5); Color Urine Yellow; Glucose Urine UA Negative (Negative); Ketones Urine Negative (Negative); Leukocyte Esterase Urine Trace (Negative); Nitrite Urine Negative (Negative); Protein Urine Negative (Negative); RBC Urine Automated 0-4 /hpf (0-4); Specific Gravity Urine 1.015 (1.000-1.030); Urobilinogen Urine Negative (Negative); pH Urine 6.5 (4.5-7.5)
[2021-01-26] MEDS: SODIUM CHLORIDE 0.9% 1000ML 1,000 ML IV SCH (06:01)
[2021-01-26 06:06] LABS: Hematocrit (blood only) 37.6 % (37-47); Hemoglobin 11.9 g/dL (12.0-16.0); Immature Granulocytes # (auto) 0.02 K/uL (0.00-0.02); Immature Granulocytes % (auto) 0.2 %; Lymphocytes # (auto) 0.96 K/uL (1.2-3.4); Lymphocytes % (auto) 9.3 %; Mean Corpuscular Hemoglobin 27.9 pg (25-34); Mean Corpuscular Hgb Conc 31.6 g/dL (32-36); Mean Corpuscular Volume 88.3 fL (80-100); Mean Platelet Volume 8.5 fL (7.4-10.4); Monocytes % (auto) 6.8 %; Neutrophils # (auto) 8.66 K/uL (1.4-6.5); Neutrophils % (auto) 83.7 %; Platelet Count 575 K/uL (130-400); RDW Coefficient of Variation 14.2 % (11.5-14.5); RDW Standard Deviation 46.4 fL (36.4-46.3); Red Blood Count 4.26 M/uL (4.2-5.4); White Blood Count 10.34 K/uL (4.8-10.8)
[2021-01-26 06:36] LABS: BUN Creatinine Ratio 11.4 (10-20); Calcium 8.8 mg/dl (8.5-10.1); Creatinine Clr Calc Pharmacy 72.5 ml/min; Est GFR (African American) 110.9 ml/min; Est GFR (Non-African American) 95.7 ml/min; Potassium 4.6 mmol/L (3.5-5.1)
[2021-01-26] MEDS: PRAVASTATIN SOD 40 MG TAB PO SCH (08:58)
[2021-01-26] MEDS: PRIMIDONE 50 MG TAB PO SCH ×2 (08:59→20:38)
[2021-01-26] MEDS: VENLAFAXINE HCL XR 150 MG CAPXR PO SCH (08:59)
[2021-01-26] MEDS: PANTOprazole 40 MG TAB PO SCH (08:59)
[2021-01-26] MEDS: DICYCLOMINE HCL 20 MG TAB PO PRN (09:18)
--- NOTE | 2021-01-26 10:19 | Electrocardiogram Report ---
Test Reason : Blood Pressure : / mmHG Vent. Rate : 081 BPM Atrial Rate : 081 BPM P-R Int : 118 ms QRS Dur : 080 ms QT Int : 350 ms P-R-T Axes : 004 008 027 degrees QTc Int : 406 ms Poor data quality, interpretation may be adversely affected Normal sinus rhythm Nonspecific ST and T wave abnormality Abnormal ECG When compared with ECG of 22-DEC-2018 17:53, Vent. rate has increased BY 29 BPM T wave inversion now evident in Anterior leads Confirmed by Chacorta Hannah ([id number]) on 01/26/2021 10:18:50 AM Referred By: Nadeen Davidson Confirmed By:Hamzah Hannah
[2021-01-26] MEDS: HYDROmorphone INJ 0.5 MG/0.5 ML SYR IV PRN ×3 (10:20→19:19)
[2021-01-26] MEDS: methylPREDNISolone 60 MG in SYRINGE 0 ML IV SCH ×2 (11:07→23:24)
[2021-01-26] MEDS: LACTATED RINGER'S 1,000 ML IV SCH (13:20)
--- NOTE | 2021-01-26 15:36 | Hospitalist Progress Note ---
Date of Service January 26, 2021 Assessment & Plan (1) Diarrhea: * Presumably secondary to flare of Crohn's diseasesee below (2) Crohns disease: * Patient symptomatology seems to have been progressively worsened by down titration of steroids. At this time, I believe she would benefit from first IV steroids with a slow oral taper. I did reach out to GI to ensure that they were okay with this plan and Dr. Peraza agrees. * In terms of medications for chronic Crohnwould appreciate GIs recommendations * Morphine sulfate does not seem to be controlling patient's abdominal pain. Will provide Dilaudid * Continue with gentle IV hydration * Will continue clear liquids for now and advance as tolerated (3) HTN (hypertension): * Continue metoprolol as prior to hospitalization (4) CAD (coronary artery disease): * Continue Metoprolol/statin (5) Hyperlipidemia: Chronic -Continue Pravastatin (6) Depression: Chronic -Continue Venlafaxine DVT Ppx - Lovenox 40 Plan of care to be discussed with Dr. Shabazz. Further orders as warranted. Admission and Anticipated Discharge Date Admission Date: January 25, 2021 Subjective Patient seen on daily rounds today. She is a 70-year-old white female with a past history of CAD, Crohn's disease, HTN, HLD, and essential tremor. She has had uncontrolled Crohn's since this past May. Reports that for 2 years, char cole did well on Humira. Unfortunately, in 2018, she needed a CABG and was without her Pentasa during that entire hospital course. When she was discharged, she failed to resume that medication. Since then, she has been having trouble getting her Crohn's disease "under control". Predominantly, since this past May she has been in a flare. Her Humira has since been changed to Entyvio (which was started in December 2020). In addition, she has been on a tapering course of prednisone since December. She recently decreased from 30 mg to 20 mg 5 days ago and for the past 3 days, she has been having severe diarrhea and abdominal cramping which prompted her evaluation to the ED. There she was found to have mild hypokalemia 3.4 with an elevated ESR of 106 and an elevated CRP of 15.9. Currently, she claims that the morphine sulfate on board for pain control is not controlling her pain. Pain is still rated as a 7/10. GI has been consulted. Review of Systems Review of Systems: + Abdominal pain, diarrhea, hematochezia. Denies fevers, chills, chest pain, shortness of breath, nausea, vomiting, melena, dysuria, hematuria, urinary frequency Physical Exam Physical Exam: General: Resting comfortably in her hospital bed. Awake and alert. Appears to be in mild abdominal discomfort. Does not appear ill or tox ic Cardiac: RRR with 2/6 NEIL Lungs: CTA without W/R/R Abdomen: Abdominal guarding. Normal active X4. Abdomen is soft and tender in all quadrants Extremities: No peripheral clubbing cyanosis or edema Results & Data Results & Data ([facility]) Vital Signs (Past 12 Hours) Vital Signs Temp Pulse Resp BP Pulse Ox 01/26/21 08:42 36.9 C 83 16 125/71 98 Laboratory Results 01/26/21 05:39 01/26/21 05:[address] of the abdomen and pelvis reviewed (done in ED): Multifocal wall thickening throughout the colon consistent with colitis PG Care Time/CCT Total # of Minutes Spent Total Time Spent with Patient: Total time spent is greater than 50% in coordination of care (as documented) at patient's floor/unit and/or counseling patient: Coding [place] [address] Subseq Hosp Care Lvl 2 Patient Type Established History Expanded Problem Focused Exam Expanded Problem Focused Medical Decision Making Moderate Complexity Diagnoses Diarrhea R19.7 Diarrhea type: unspecified type Crohns disease K50.90 Digestive disease complication type: without complication Gastrointestinal tract location: unspecified location HTN (hypertension) I10 Hypertension type: primary hypertension CAD (coronary artery disease) I25.10 Coronary Disease-Associated Artery/Lesion type: [place] artery [place] vs. transplanted heart: [place] heart Associated angina: without angina Hyperlipidemia E78.5 Hyperlipidemia type: unspecified Depression F32.9 Depression Type: major depressive disorder Major depression recurrence: unspecified whether recurrent Active/Remission status: remission status unspecified (1) Diarrhea Diarrhea type: unspecified type Qualified Code(s): R19.7 - Diarrhea, unspecified (2) Crohns disease Digestive disease complication type: without complication Gastrointestinal tract location: unspecified location Qualified Code(s): K50.90 - Crohn's disease, unspecified, without complications (3) HTN (hypertension) Hypertension type: primary hypertension Qualified Code(s): I10 - Essential (primary) hypertension (4) CAD (coronary artery disease) Coronary Disease-Associated Artery/Lesion type: [place] artery [place] vs. transplanted heart: [place] heart Associated angina: without angina Qualified Code(s): I25.10 - Atherosclerotic heart disease of [place] coronary artery without angina pectoris (5) Hyperlipidemia Hyperlipidemia type: unspecified Qualified Code(s): E78.5 - Hyperlipidemia, unspecified (6) Depression Depression Type: major depressive disorder Major depression recurrence: unspecified whether recurrent Active/Remission status: remission status unspecified Qualified Code(s): F32.9 - Major depressive disorder, single episode, unspecified
[2021-01-26] MEDS: ALPRAZolam 0.5 MG TABLET PO PRN ×2 (16:33→23:24)
--- NOTE | 2021-01-26 16:38 | Gastrointestinal Consultation ---
Date of Consultation January 26, 2021 Assessment & Plan (1) Crohn's colitis: Diarrhea abd pain Working diagnosis is flare of crohns disease. Cdiff negative. Stools cx pending to look for other etiology. CMV colitis is in the differential. Recommend the Solumedrol 60 mg IV q12 hours. Discussed would prefer to give Entyvio longer time to work before giving up on it. Discussed with patient and family member if substantially improved by Thursday am then can convert to oral steroids. If not substantially improved then would transfer to [place] for consideration of other biologic therapy or workup for CMV which would require tertiary care to treat, or possible surgical intervention. Told family if they decide they want to go to [place] sooner then that is of course acceptable and to let the hospitalist know. History of Present Illness Reason for Consultation: Crohns Requesting Physician: Dr Terence Shabazz Attending Physician: Terence Shabazz, DO History of Present Illness cc diarrhea, abd pain HPI Family member Lizeth with patient for H and P. Reviewed most recent oupt GI OV with YULISSA Jean 10/2020. Reviewed colo to TI report 08/2018 few apthea in ileum managed on Pentasa. Repeat colonoscopy 07/2020 noted on report ulceration from rectosigmoid to AC and stricture at valev path neg for CMV. She was started on Humira initially with improvent for couple months but then flared again. She was started on steroids which cause her to be jittery and changed to Entyvio. with first dose given 12/31/20 and second . She tapered the steroids down to 20 mg and is having diarrhea up to 10 / day, avoiding food secondary to diarrhea, lost 13 lbs over last few weeks, and has abd pain periumbilical and diffiuse. No blood in stool at home but noted some blood in stool this am in the hospital. Reviewed labs this admit thwi CMP alb 2.6 L, globulin 4.6 H, lipase nl, CRP 15.9 H, WBC 11.[address] a/p report reviewed small HH, diverticulosis, thickening of colon most prominent AC/TC wall thickening and narrowing of 7 cm distal ileum. Reviewed stool studies Cdiff neg, with WBC and culture pending. Allergies Allergy/AdvReac Type Severity Reaction Status Date / Time No Known Allergies Allergy Verified 01/25/21 18:32 Home Medications Medication Instructions Recorded Confirmed Type venlafaxine 150 mg PO DAILY 12/22/18 01/25/21 History alprazolam 0.25 mg tablet 0.25 - 0.5 mg PO TID PRN tab 02/14/19 01/25/21 History metoprolol succinate 50 mg 50 mg PO DAILY tab 07/26/19 01/25/21 History tablet,extended release 24 hr pravastatin 80 mg tablet 80 mg PO DAILY #90 tab 09/07/20 01/25/21 Rx omeprazole 20 mg capsule,delayed 20 mg PO DAILY 11/06/20 01/25/21 History release prednisone 20 mg tablet 10 mg PO QPM tab 11/06/20 01/25/21 History dicyclomine 20 mg PO QID PRN 01/25/21 01/25/21 History primidone 100 mg PO BID 01/25/21 01/25/21 History vedolizumab [Entyvio] 0 mg IV UD 01/25/21 01/25/21 History Patient History Medical History CAD (coronary artery disease) 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, [facility]: Rojas to LAD, SARIKA to RCA, saphenous vein graft to ramus intermedius, saphenous vein graft to om 2 Crohns disease Diarrhea Failure of rotator cuff repair HTN (hypertension) Hypercholesterolemia Hypokalemia Left shoulder pain Tobacco abuse Surgical History History of coronary artery bypass graft Family History Other Cancer Heart disease Hypertension Social History Smoking Status: Current every day smoker Tobacco Type: Cigarettes Cigarettes Per Day: 10; Second Hand Exposure: No; Tobacco Cessation Education Requested by Patient: No Hx Alcohol Use: Yes Alcohol type: beer and wine Hx Substance Use: No Preferred Language: Serbian Communication Ability: Effective [employer]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 Beliefs That Will Affect Care: None marital status: / Current Living Situation: Alone current occupational status: retired Other Information That Helps Us Care for You: No Feels Safe at Home: Yes Assistive Devices: None Review of Systems Review of Systems: All systems reviewed & are unremarkable except as noted in HPI & below Physical Exam Constitutional: WD/WN, vitals as above Eyes: PERRL, conjunctivae normal, anicteric sclerae ENMT: Ears: no hearing impairment Nose: no external nose abnormality Neck: normal visual inspection and trachea midline Respiratory: normal respiratory effort, lungs clear to auscultation Cardiovascular: RRR, no murmur, no edema Gastrointestinal (Abdomen): pos bs, soft, no guarding nor rebound Skin: warm and dry Neurologic: PERRL, EOMI, accommodation nl, no face palsy, no dysarthria Psychiatric: A+Ox3, euthymic affect Results & Data ([facility]) Vital Signs (Past 12 Hours) Vital Signs Temp Pulse Resp BP Pulse Ox 01/26/21 08:42 36.9 C 83 16 125/71 98
[2021-01-26] MEDS: ENOXAPARIN INJ 40 MG/0.4 ML SYR SQ SCH (20:37)
[2021-01-26] MEDS ORDERED: METOPROLOL SUCC 50MG EXT REL TAB PO SCH (21:00)
[2021-01-26] MEDS ORDERED: predniSONE 10 MG TABLET PO SCH (21:00)
[2021-01-27] MEDS: LACTATED RINGER'S 1,000 ML IV SCH ×2 (00:46→11:27)
[2021-01-27] MEDS: HYDROmorphone INJ 0.5 MG/0.5 ML SYR IV PRN ×3 (03:18→12:43)
[2021-01-27 06:01] LABS: Hemoglobin 11.5 g/dL (12.0-16.0); Immature Granulocytes # (auto) 0.02 K/uL (0.00-0.02); Immature Granulocytes % (auto) 0.3 %; Lymphocytes # (auto) 0.58 K/uL (1.2-3.4); Lymphocytes % (auto) 8.4 %; Mean Corpuscular Hemoglobin 27.4 pg (25-34); Mean Corpuscular Hgb Conc 31.9 g/dL (32-36); Mean Corpuscular Volume 85.7 fL (80-100); Mean Platelet Volume 8.4 fL (7.4-10.4); Monocytes # (auto) 0.42 K/uL (0.11-0.59); Monocytes % (auto) 6.1 %; Neutrophils # (auto) 5.89 K/uL (1.4-6.5); Neutrophils % (auto) 85.2 %; Platelet Count 522 K/uL (130-400); RDW Coefficient of Variation 13.8 % (11.5-14.5); RDW Standard Deviation 43.8 fL (36.4-46.3); White Blood Count 6.91 K/uL (4.8-10.8)
[2021-01-27 06:30] LABS: BUN Creatinine Ratio 12.4 (10-20); Calcium 8.9 mg/dl (8.5-10.1); Creatinine Clr Calc Pharmacy 90.7 ml/min; Est GFR (African American) 119.4 ml/min; Potassium 3.9 mmol/L (3.5-5.1)
[2021-01-27 06:35] LABS: Albumin Globulin Ratio 0.5 (0.9-2); Bilirubin,Total 0.3 mg/dl (0.2-1)
[2021-01-27] MEDS: PANTOprazole 40 MG TAB PO SCH (09:27)
[2021-01-27] MEDS: PRIMIDONE 50 MG TAB PO SCH (09:27)
[2021-01-27] MEDS: VENLAFAXINE HCL XR 150 MG CAPXR PO SCH (09:27)
[2021-01-27] MEDS: PRAVASTATIN SOD 40 MG TAB PO SCH (09:28)
[2021-01-27] MEDS: ALPRAZolam 0.5 MG TABLET PO PRN (09:30)
[2021-01-27] MEDS: methylPREDNISolone 60 MG in SYRINGE 0 ML IV SCH (11:27)
--- NOTE | 2021-01-27 17:26 | Discharge Summary ---
Date of Service January 27, 2021 Admission HPI Per Admitting Provider Cary Ansari is a 70yo female with history fo HTN, HLP, CAD and Crohns colitis presenting with abdominal pain and diarrhea. Patient has longstanding history of Crohn's disease. She was formerly on Humira which was stopped due to ineffectiveness. She was placed on Prednisone 40mg long taper and has since been started on Vedolizumab (Entyvio). She had her first injection on 12/31/20 and the second on 01/14/21. Today is her last day of Prednisone 20mg daily and she is to start 10mg daily tomorrow. She does not wish to increase her steroids as they make her feel very jittery. Patient complaining of 3 days of severe diarrhea as well as abdominal pain, cramping. Diarrhea is watery, non-bloody, non-mucoid. She states that it "runs out of her". She has been having difficulty eating or tolerating PO as it leads to diarrhea. She denies fever/chills/distention. Denies nausea/vomiting. No recent antibiotic use or sick contacts. Patient afebrile, HD stable in ER ER Course: TYlenol, Benadryl, Pepcid, Morphine, Zofran, NSS Admission Exam Per Admitting Provider General: patient resting uncomfortable in appearance,NAD, non-toxic, AA&O x 4 Skin: warm, dry, intact, no rashes or lesions HEENT: NC/AT, PERRL, EOMI, anicteric sclera, conjunctiva without injection, external ear normal to inspection and nontender, nares patent, slightly dry mucus membranes, dentition intact, no oropharyngeal lesions, neck supple, trachea midline, no LAD, no thyromegaly, no JVD Heart: +S1/S2, regular, 3/6 NEIL across precordium Lungs: equal air entry bilaterally, no rales/rhonchi/wheezes Abd: +BS, soft, mildly tender with deep palpation, no rebound/guarding/peritoneal signs, no masses/organomegaly/ascites Ext: warm, 2+ pulses in UE/LE bilaterally, no clubbing/cyanosis or edema Neuro: nonfocal, patient AA&O x 4, speech intact, no facial droop, moving all extremities on command with equal strength 5/5 Principal Diagnosis Working diagnoses: 1. Crohn's colitis 2. Hypokalemiareplaced and resolved Chronic medical conditions: 1. HTN 2. CAD 3. HLD 4. Essential tremor 5. Crohn's Discharge Exam General: Resting comfortably in her hospital bed. Awake and alert. Appears to be in mild abdominal discomfort. Does not appear ill or toxic Cardiac: RRR with 2/6 NEIL Lungs: CTA without W/R/R Abdomen: Abdominal guarding. Normal active X4. Abdomen is soft and tender in all quadrants Extremities: No peripheral clubbing cyanosis or edema Discharge Data Allergies Allergy/AdvReac Type Severity Reaction Status Date / Time No Known Allergies Allergy Verified 01/25/21 18:32 Consultations 01/25/21 19:02 ED Decision to Admit Stat 01/25/21 22:23 Consult Gastroenterology Routine Humira levels were checked and zero with significant Ab formation prior to changing to Entyvio. Assessment & Plan (1) Crohn's colitis: Diarrhea abd pain Working diagnosis is flare of crohns disease. Cdiff negative. Stools cx pending to look for other etiology. CMV colitis is in the differential. Recommend the Solumedrol 60 mg IV q12 hours. Discussed would prefer to give Entyvio longer time to work before giving up on it. Discussed with patient and family member if substantially improved by Thursday am then can convert to oral steroids. If not substantially improved then would transfer to [place] for consideration of other biologic therapy or workup for CMV which would require tertiary care to treat, or possible surgical intervention. Told family if they decide they want to go to [place] sooner then that is of course acceptable and to let the hospitalist know. 01/27/21 13:16 Burn CD for patient Routine Ordered Studies 01/25/21 16:19 CT abd pelvis IV con only Stat IMPRESSION: 1. Multifocal wall thickening throughout the colon, most pronounced in the ascending and transverse segments compatible with an acute nonspecific colitis. 2. Luminal narrowing with chronic wall thickening of the terminal ileum is likely secondary to the patient's reported chronic inflammatory bowel disease. 3. No bowel obstruction or pneumoperitoneum 4. Small hiatal hernia. 5. Additional findings as above. CXR: IMPRESSION: 1. COPD pattern. No large infiltrates or consolidative lesions. 2. Prominent cardiac silhouette. Hospital Course (1) Diarrhea: * Presumably secondary to flare of Crohn's diseasesee below (2) Crohns disease: * Patient symptomatology seems to have been progressively worsened by down titration of steroids. * Patient has failed 3 biologic agents at this point (Humira, Pentasa, Entyvio) * Has since been started on IV steroids with GI consultation who discussed possible transfer to [place] for alternative options (other biologic agents, CMV testing, surgical intervention) * At this time, patient has been on IV steroids now for 24 hours without any improvement. She does not want to give it an additional 24 hours to see if her symptoms will improve. She would like to seek out a second opinion at [facility]. * I called and spoke to GI (Dr. Robert) and Hospitalist (Dr. Muse) who have agreed to accept this patient when a bed becomes available * Patient will be continued on IV steroids, and IV Dilaudid as needed for pain (3) HTN (hypertension): * Continue metoprolol as prior to hospitalization (4) CAD (coronary artery disease): * Continue Metoprolol/statin (5) Hyperlipidemia: Chronic -Continue Pravastatin (6) Depression: Chronic -Continue Venlafaxine DVT Ppx - Lovenox 40 Plan of care to be discussed with Dr. Shabazz. Transfer when bed becomes available Total Time Total Time Spent Total Time Spent (In Minutes): 60 minutes including time spent for transfer Total Time Includes: Examination of the Patient, Discharge Planning, Medication Reconciliation and Communication With Other Providers Discharge Plan Discharge Items Patient Disposition: Transfer Acute Care Hospital Reason For Visit: CROHN'S colitis Discharge Diagnosis: 1. Crohn's Colitis- failing treatment 2. Failed multiple biological agents for Crohn's disease Activity: Per Instructions section Activity Comment: transfer to [facility] Non-emergency contact: Primary Care Provider and Supervisor [employer] Call non-emergency contact if: you have any medication questions Follow-up/Referrals: Agus Manzano MD [Primary Care Provider] - Diet: Clear liquid Addtl Attending Provider Instructions: -Patient admitted for Crohn's Colitis. -Flare ongoing since May. -Patient failed 3 biological agents and has been following GI -Transfer to [facility] for consideration of other biological therapy, W/U for CMV colitis, or possible surgical intervention (at the recommendations of GI) Pending Studies at Discharge: No Stand-Alone Forms: My [facility] Skilled Items Patient informed of condition?: Yes DNR: No Discharge Level of Care: Other Communicable Disease: No Discharge Prognosis: Other Lines: Peripheral IV Urinary Catheter: No Medications and DC Order Prescriptions: New acetaminophen 325 mg Tablet 650 mg PO Q4H 3 Days RF: 0 ondansetron HCl (PF) 4 mg/2 mL Solution 4 mg IV Q6H PRN (Reason: nausea/vomiting) 3 Days RF: 0 enoxaparin 40 mg/0.4 mL Syringe 40 mg subcut HS 3 Days Qty: 1.2 RF: 0 hydromorphone 0.5 mg/0.5 mL Syringe 0.5 mg IV Q3H PRN (Reason: pain) 3 Days RF: 0 Continued pravastatin 80 mg tablet 80 mg PO DAILY Qty: 90 RF: 3 venlafaxine 150 mg capsule,extended release 24hr 150 mg PO DAILY RF: 0 alprazolam 0.25 mg tablet 0.25 - 0.5 mg PO TID PRN (Reason: Anxiety) RF: 0 metoprolol succinate 50 mg tablet extended release 24 hr 50 mg PO DAILY RF: 0 primidone 50 mg tablet 100 mg PO BID RF: 0 dicyclomine 20 mg tablet 20 mg PO QID PRN (Reason: Abdominal Spasm) RF: 0 Discontinued omeprazole 20 mg capsule,delayed release(DR/EC) 20 mg PO DAILY RF: 0 prednisone 20 mg tablet 10 mg PO QPM RF: 0 Entyvio 300 mg Recon Soln 0 mg IV UD RF: 0 Discharge Orders: Discharge Order (Routine); Ordered 01/27/21 Ordered By: Fadumo Dong/Other Patient Handouts: Crohn Disease Lifestyle Manage Admission Data Admit Date/Time: 01/25/21 20:12 Attending Provider: Terence Shabazz Admit Provider: Josiane Alex Primary Care Provider: Agus Manzano Other Providers: Josiane Alex ; David Moore Other Interventions: Discharge Summary Assessment (RN) Last Done: 01/27/21 14:25 Supervising Physician Co-Signing Physician Notes Patient seen and examined on the day of discharge. I agree with the discharge summary by Fadumo MILTON. I have reviewed the chart including labs, imaging and plans for discharge. patient slow to respond to Solu Medrol GI recommends transfer to [place] for trial of different biologic agent patient and her family agree to transfer Fadumo MILTON spoke with Demi and they accepted transfer - Crohn's flare: slow to respond to steroids, will transfer to tertiary care for biologic agent initiation Coding Level of Care Code D/C DAY MANAGEMENT >30 MINS Diagnoses Diarrhea R19.7 Diarrhea type: unspecified type Crohns disease K50.90 Digestive disease complication type: without complication Gastrointestinal tract location: unspecified location HTN (hypertension) I10 Hypertension type: primary hypertension CAD (coronary artery disease) I25.10 Associated angina: without angina Coronary Disease-Associated Artery/Lesion type: [place] artery [place] vs. transplanted heart: [place] heart Hyperlipidemia E78.5 Hyperlipidemia type: unspecified Depression F32.9 Active/Remission status: remission status unspecified Depression Type: major depressive disorder Major depression recurrence: unspecified whether recurrent Time Spent (min) 60
== END 2021-01-27 14:29 | disposition short-term general hospital (02) ==
LOC: ED 15:57 → 3N 20:12 → SUATTDRO 20:12 → INTOOBSV 20:12 → 3N 22:14

== ENCOUNTER 2021-03-19 09:49 | Inpatient (IN) ==
[2021-03-19 11:16] LABS: Basophils # (auto) 0.02 K/uL (0-0.2); Basophils % (auto) 0.3 %; Eosinophils # (auto) 0.01 K/uL (0-0.5); Eosinophils % (auto) 0.2 %; Hematocrit (blood only) 37.2 % (37-47); Hemoglobin 12.1 g/dL (12.0-16.0); Immature Granulocytes # (auto) 0.05 K/uL (0.00-0.02); Immature Granulocytes % (auto) 0.8 %; Lymphocytes # (auto) 1.47 K/uL (1.2-3.4); Lymphocytes % (auto) 22.9 %; Mean Corpuscular Hemoglobin 26.3 pg (25-34); Mean Corpuscular Hgb Conc 32.5 g/dL (32-36); Mean Corpuscular Volume 80.9 fL (80-100); Monocytes % (auto) 6.2 %; Neutrophils # (auto) 4.48 K/uL (1.4-6.5); Neutrophils % (auto) 69.6 %; Platelet Count 504 K/uL (130-400); RDW Coefficient of Variation 16.5 % (11.5-14.5); RDW Standard Deviation 47.9 fL (36.4-46.3); White Blood Count 6.43 K/uL (4.8-10.8)
[2021-03-19 11:27] LABS: Partial Thromboplastin Ratio 1.4; Partial Thromboplastin Time 35.9 Seconds (21.0-31.0); Prothrombin Time 9.8 Seconds (9.0-12.0)
[2021-03-19 11:35] LABS: Alanine Aminotransferase 180 U/L (12-78); Albumin Level 2.9 gm/dl (3.4-5.0); Aspartate Aminotransferase 189 U/L (15-37); BUN Creatinine Ratio 28.1 (10-20); Blood Urea Nitrogen 33 mg/dl (7-18); Carbon Dioxide 24 mmol/L (21-32); Chloride 92 mmol/L (98-107); Creatinine Clr Calc Pharmacy 30.9 ml/min; Est GFR (African American) 55.6 ml/min; Glucose 88 mg/dl (70-99); Magnesium 2.3 mg/dl (1.8-2.4); Potassium 5.8 mmol/L (3.5-5.1); Sodium 122 mmol/L (136-145)
[2021-03-19 11:40] LABS: Albumin Globulin Ratio 0.6 (0.9-2); Alkaline Phosphatase 252 U/L (45-117); Bilirubin,Total 0.3 mg/dl (0.2-1); Globulin 5.2 gm/dl (2.5-4.0); Total Protein 8.1 gm/dl (6.4-8.2); Troponin I < 0.015 ng/ml (0-0.045)
--- NOTE | 2021-03-19 12:00 | XRay Report ---
XR chest 1V portable CLINICAL HISTORY: SEPSIS COMPARISON STUDY: Chest radiograph February 04, 2021. FINDINGS: Lung volumes are normal. Lungs are clear. There is no pneumothorax or pleural effusion. Car diac size is normal. Mediastinal contours are normal. There is no evidence for pulmonary edema. There are median sternotomy wires and surgical clips. IMPRESSION: No acute cardiopulmonary findings. ACT 112: Negative or not required by law. Electronically signed by: Chago Horner M.D. 03/19/2021 11:58 AM
[2021-03-19] MEDS ORDERED: CALCIUM GLUCONATE 10% 1,000 MG in SODIUM CHLORIDE 0.9% 50 ML IV STA (12:05)
[2021-03-19] MEDS ORDERED: DEXTROSE 50% 50 ML SYRINGE IV STA (12:05)
[2021-03-19] MEDS ORDERED: INSULIN HUMAN REGULAR PER UNIT 5 UNITS in SYRINGE 9.9 ML IV STA (12:05)
[2021-03-19] MEDS ORDERED: CALCIUM GLUCONATE 1000 MG/60 ML NSS IV ONE (12:10)
[2021-03-19] MEDS ORDERED: OPTIRAY 320 125ml IV ONE (13:27)
--- NOTE | 2021-03-19 15:22 | Emergency Department Note ---
History of Present Illness General Chief complaint: Weakness Stated complaint: WEAKNESS, HYPOTENSION Time Seen by Provider: 03/19/21 10:17 History of Present Illness Provider complaint: Weakness shortness of breath nausea Onset (ago): day(s) 4 Associated symptoms: + shortness of breath and + weakness; no confusion, no chest pain, no cough, no fever/chills or no nausea/vomiting 70-year-old female presents emergency department for weakness, exertional shortness of breath, and nausea. Patient reports her symptoms began 4 days ago. Patient reports that she was recently discharged from [facility] after having a drain placed for an intra-abdominal abscess. She reports no abdominal pain. She does report nausea but no vomiting. She reports a dry cough. She reports no hemoptysis. She reports no chest pain. No headache. No difficulty urinating or hematuria. Patient is unvaccinated against COVID-19 and states she might have been exposed to someone who has COVID-19. Home Medications Medication Instructions Recorded Confirmed Type venlafaxine 150 mg 150 mg PO QAM 12/22/18 03/19/21 History capsule,extended release 24 hr (Effexor XR) alprazolam 0.25 mg tablet (Xanax) 0.25 - 0.5 mg PO TID PRN tab 02/14/19 03/19/21 History metoprolol succinate 50 mg 25 mg PO HS tab 07/26/19 03/19/21 History tablet,extended release 24 hr (Toprol XL) primidone 50 mg tablet (Mysoline) 100 mg PO BID 01/25/21 03/19/21 History aspirin 81 mg tablet,delayed 81 mg PO QAM 03/08/21 03/19/21 History release (Aspirin Low Dose) magnesium oxide 400 mg (241.3 mg 400 mg PO BID 03/08/21 03/19/21 History magnesium) tablet (MagOx) [id number] 1 tab PO BID 03/08/21 03/19/21 History tablet (Multivitamin 50 Plus) amoxicillin 875 mg-potassium 1 tab PO BID 03/19/21 03/19/21 History clavulanate 125 mg tablet (Augmentin) fluconazole 200 mg tablet 200 mg PO QAM 03/19/21 03/19/21 History (Diflucan) omeprazole 20 mg capsule,delayed 20 mg PO QAM 03/19/21 03/19/21 History release pravastatin 80 mg tablet 80 mg PO QAM 03/19/21 03/19/21 History Allergies Allergy/AdvReac Type Severity Reaction Status Date / Time No Known Allergies Allergy Verified 03/19/21 14:28 Past Med/Surg History Medical History CAD (coronary artery disease) 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, [facility]: Rojas to LAD, SARIKA to RCA, saphenous vein graft to ramus intermedius, saphenous vein graft to om 2 Crohn's colitis Crohns disease Diarrhea Failure of rotator cuff repair HTN (hypertension) Hypercholesterolemia Hypokalemia Left shoulder pain Tobacco abuse Surgical History History of coronary artery bypass graft Family History Other Cancer Heart disease Hypertension Social History Smoking Status: Former smoker Tobacco Type: Cigarettes Cigarettes Per Day: 10; Second Hand Exposure: No; Hx Alcohol Use: Yes Alcohol type: beer and wine Hx Substance Use: No Preferred Language: Burkinan Communication Ability: Effective Transplant Nurse Required: No Beliefs That Will Affect Care: None marital status: / Current Living Situation: Alone current occupational status: retired Feels Safe at Home: Yes Assistive Devices: None Review of Systems A total of 10 systems reviewed and were otherwise negative Physical Exam Vital Signs Vital Signs - 24 hr 03/19/21 10:00 03/19/21 10:05 03/19/21 10:17 Temperature 37.3 C Temperature Source Oral Pulse Rate 69 72 Pulse Rate [Apical] 75 Pulse Rate from SpO2 Sensor 70 Pulse Rhythm [Apical] Regular Pulse Strength [Apical] Normal Respiratory Rate 20 22 18 Respiratory Effort / Characteristics Non-Labored Spontaneous Respiratory Depth Normal Normal Respiratory Pattern Regular Regular Blood Pressure 129/82 129/82 Blood Pressure [Right Arm] 112/64 Blood Pressure Mean 97 97 Blood Pressure Mean [Right Arm] 80 Blood Pressure Position Semi-fowlers Blood Pressure Position [Right Arm] Lying Pulse Oximetry 98 95 97 Oxygen Delivery Method Room Air Room Air Room Air Sepsis Recent Fever Within 48 Hours No Sepsis New/Unexplained Change in Mental Status No Sepsis Action Taken by Nursing No Action Required 03/19/21 10:30 03/19/21 10:55 03/19/21 11:00 Temperature Temperature Source Pulse Rate 73 74 Pulse Rate [Apical] Pulse Rate from SpO2 Sensor Pulse Rhythm [Apical] Pulse Strength [Apical] Respiratory Rate 25 H 19 24 Respiratory Effort / Characteristics Non-Labored Spontaneous Respiratory Depth Respiratory Pattern Blood Pressure 112/64 117/73 Blood Pressure [Right Arm] Blood Pressure Mean 80 87 Blood Pressure Mean [Right Arm] Blood Pressure Position Blood Pressure Position [Right Arm] Pulse Oximetry Oxygen Delivery Method Room Air Sepsis Recent Fever Within 48 Hours Sepsis New/Unexplained Change in Mental Status Sepsis Action Taken by Nursing 03/19/21 11:29 03/19/21 11:30 03/19/21 12:00 Temperature Temperature Source Pulse Rate 70 76 Pulse Rate [Apical] Pulse Rate from SpO2 Sensor 71 76 Pulse Rhythm [Apical] Pulse Strength [Apical] Respiratory Rate 20 24 25 H Respiratory Effort / Characteristics Non-Labored Spontaneous Respiratory Depth Respiratory Pattern Blood Pressure 112/64 107/62 Blood Pressure [Right Arm] Blood Pressure Mean 80 77 Blood Pressure Mean [Right Arm] Blood Pressure Position Blood Pressure Position [Right Arm] Pulse Oximetry 98 98 94 Oxygen Delivery Method Room Air Room Air Room Air Sepsis Recent Fever Within 48 Hours Sepsis New/Unexplained Change in Mental Status Sepsis Action Taken by Nursing 03/19/21 12:31 03/19/21 13:00 03/19/21 13:30 Temperature Temperature Source Pulse Rate 80 79 79 Pulse Rate [Apical] 76 Pulse Rate from SpO2 Sensor 80 Pulse Rhythm [Apical] Pulse Strength [Apical] Respiratory Rate 14 13 20 Respiratory Effort / Characteristics Respiratory Depth Respiratory Pattern Blood Pressure 101/74 112/60 103/63 Blood Pressure [Right Arm] 112/60 Blood Pressure Mean 83 77 76 Blood Pressure Mean [Right Arm] 77 Blood Pressure Position Blood Pressure Position [Right Arm] Pulse Oximetry 97 Oxygen Delivery Method Room Air Room Air Room Air Sepsis Recent Fever Within 48 Hours Sepsis New/Unexplained Change in Mental Status Sepsis Action Taken by Nursing 03/19/21 14:00 03/19/21 14:14 Temperature Temperature Source Pulse Rate 81 Pulse Rate [Apical] Pulse Rate from SpO2 Sensor Pulse Rhythm [Apical] Pulse Strength [Apical] Respiratory Rate 15 Respiratory Effort / Characteristics Non-Labored Spontaneous Respiratory Depth Respiratory Pattern Blood Pressure 129/82 Blood Pressure [Right Arm] Blood Pressure Mean 97 Blood Pressure Mean [Right Arm] Blood Pressure Position Blood Pressure Position [Right Arm] Pulse Oximetry 98 Oxygen Delivery Method Room Air Room Air Sepsis Recent Fever Within 48 Hours Sepsis New/Unexplained Change in Mental Status Sepsis Action Taken by Nursing Physical Exam GENERAL: She is oriented to person, place, and time. She appears well-developed and well-nourished. She does not appear distressed. HENT: Exam performed. -Head: Normocephalic and atraumatic. -Right Ear: External ear normal. No mastoid tenderness. -Left Ear: External ear normal. No mastoid tenderness. -Mouth/Throat: The oropharynx is clear and moist. No trismus in the jaw. No dental abscesses or uvula swelling. No oropharyngeal exudate or tonsillar abscesses. EYES: Conjunctivae and EOM are normal. Pupils are equal, round, and reactive to light. Right eye exhibits no discharge. Left eye exhibits no discharge. No scleral icterus. NECK: Normal range of motion. Neck supple. No JVD present. No spinous process tenderness present. No carotid bruit present. No rigidity. No tracheal deviation and normal range of motion present. No Brudzinski's sign and no Kernig's sign noted. CV: Normal rate, regular rhythm, normal heart sounds and intact distal pulses. There is no peripheral edema. Palpable radial pulses bue. PULM/CHEST: Effort normal and breath sounds normal. No respiratory distress. No stridor. She has no wheezes. She has no rales. -Chest Wall: She exhibits no tenderness. ABD: The abdomen is soft. Ileostomy in abdominal drain present. No surrounding erythema or discharge. Mild tenderness around the abdominal drain site. MUSC/SKEL: Normal range of motion. There is no peripheral edema, tenderness or deformity. LYMPH: No cervical adenopathy. NEURO: She is alert and oriented to person, place, and time. She has normal strength. No cranial nerve deficit or sensory deficit. GCS eye subscore is 4. GCS verbal subscore is 5. GCS motor subscore is 6. Cerebellar tests wnl. SKIN: Skin is warm and dry. She is not diaphoretic. PSYCH: She has a normal mood and affect. Behavior is normal. Judgment and thought content normal. Course Course 1017: The patient was evaluated in room A9. A complete history and physical exam was performed Cardiac monitoring: An order was placed for continuous cardiac monitoring. The monitor shows a rate of 80 with sinus rhythm EMR reviewed. Patient was seen in the emergency department on March 08, 2021, 11 days ago. At that time the patient was diagnosed with intra-abdominal abscesses. During their emergency department stay the patient became septic and required IV antibiotics and was transferred to the [facility] ICU. 1614: Vital signs stable. Labs show a sodium of 122. Potassium of 5.8. Hyperkalemia was treated with 5 units of insulin IV push and 1 amp of D50. Calcium gluconate ordered for the patient. Patient is COVID-19 positive. CTA of the chest is negative for PE. No aortic dissection or dilatation there is mention of luminal irregularities which could be ulcers in the aorta. CT of the abdomen shows a resolving abscess. Given the patient's hyponatremia, hyperkalemia, and Covid positive, [facility] Case discussed with Dr. Harris who will evaluate the patient. Administered Medications Discontinued Medications Calcium Gluconate (Calcium Gluconate 1000 Mg/60 Ml Nss) Confirm Administered Dose 1,000 mg IV .STK-MED ONE Stop: 03/19/21 12:11 Last Admin: 03/19/21 12:34 Dose: 1,000 mg Documented by: [id number] Dextrose (Dextrose 50% 50 Ml Syringe) 50 ml IV NOW STA Stop: 03/19/21 12:06 Last Admin: 03/19/21 12:33 Dose: 50 ml Documented by: [id number] Calcium Gluconate 1,000 mg/ (Sodium Chloride) 60 mls @ 240 mls/hr IV NOW STA Stop: 03/19/21 12:19 Last Admin: 03/19/21 12:35 Dose: Not Given Documented by: [id number] Insulin Human Regular 5 units/ (Syringe) 9.9 mls @ 3 mls/sec IV ONE STA Stop: 03/19/21 12:06 Last Admin: 03/19/21 12:33 Dose: 3 mls/sec Documented by: [id number] Cosigned by: [id number] Ioversol (Optiray 320 125ml) 119 ml IV ONCE ONE Stop: 03/19/21 13:28 Last Admin: 03/19/21 13:28 Dose: 1 ml Documented by: [id number] Medical Decision Making Laboratory Data Result diagrams: 03/19/21 11:08 03/19/21 11:08 Lab Results 03/19/21 03/19/21 03/19/21 Range/Units 10:48 10:48 11:08 WBC 6.43 (4.8-10.8) K/uL RBC 4.60 (4.2-5.4) M/uL Hgb 12.1 (12.0-16.0) g/dL Hct 37.2 (37-47) % MCV 80.9 (80-100) fL MCH 26.3 (25-34) pg MCHC 32.5 (32-36) g/dL RDW Std Deviation 47.9 H (36.4-46.3) fL RDW Coeff of Harish 16.5 H (11.5-14.5) % Plt Count 504 H (130-400) K/uL MPV 9.0 (7.4-10.4) fL Immature Gran % (Auto) 0.8 % Neut % (Auto) 69.6 % Lymph % (Auto) 22.9 % Free[place] % (Auto) 6.2 % Eos % (Auto) 0.2 % Baso % (Auto) 0.3 % Neut # (Auto) 4.48 (1.4-6.5) K/uL Lymph # (Auto) 1.47 (1.2-3.4) K/uL [place] # (Auto) 0.40 (0.11-0.59) K/uL Eos # (Auto) 0.01 (0-0.5) K/uL Baso # (Auto) 0.02 (0-0.2) K/uL Immature Gran # (Auto) 0.05 H (0.00-0.02) K/uL PT (9.0-12.0) Seconds INR (0.9-1.1) APTT (21.0-31.0) Seconds PTT Ratio Sodium (136-145) mmol/L Potassium (3.5-5.1) mmol/L Chloride (98-107) mmol/L Carbon Dioxide (21-32) mmol/L Anion Gap (3-11) BUN (7-18) mg/dl Creatinine (0.6-1.2) mg/dl Est Cr Clr Drug Dosing ml/min Est GFR ( Amer) ml/min Est GFR (Non-Af Amer) ml/min BUN/Creatinine Ratio (10-20) Glucose (70-99) mg/dl POC Glucose (70-99) mg/dl Lactate (0.4-2.0) mmol/L Calcium (8.5-10.1) mg/dl Magnesium (1.8-2.4) mg/dl Total Bilirubin (0.2-1) mg/dl AST (15-37) U/L ALT (12-78) U/L Alkaline Phosphatase (45-117) U/L Troponin I (0-0.045) ng/ml Total Protein (6.4-8.2) gm/dl Albumin (3.4-5.0) gm/dl Globulin (2.5-4.0) gm/dl Albumin/Globulin Ratio (0.9-2) Procalcitonin (0-0.5) ng/ml COVID-19 Eval Order Covid19 at [facility] SARS-CoV-2 (PCR) POSITIVE A* (Negative) 03/19/21 03/19/21 03/19/21 Range/Units 11:08 11:08 11:08 WBC (4.8-10.8) K/uL RBC (4.2-5.4) M/uL Hgb (12.0-16.0) g/dL Hct (37-47) % MCV (80-100) fL MCH (25-34) pg MCHC (32-36) g/dL RDW Std Deviation (36.4-46.3) fL RDW Coeff of Harish (11.5-14.5) % Plt Count (130-400) K/uL MPV (7.4-10.4) fL Immature Gran % (Auto) % Neut % (Auto) % Lymph % (Auto) % [place] % (Auto) % Eos % (Auto) % Baso % (Auto) % Neut # (Auto) (1.4-6.5) K/uL Lymph # (Auto) (1.2-3.4) K/uL [place] # (Auto) (0.11-0.59) K/uL Eos # (Auto) (0-0.5) K/uL Baso # (Auto) (0-0.2) K/uL Immature Gran # (Auto) (0.00-0.02) K/uL PT 9.8 (9.0-12.0) Seconds INR 1.0 (0.9-1.1) APTT 35.9 H (21.0-31.0) Seconds PTT Ratio 1.4 Sodium 122 L (136-145) mmol/L Potassium 5.8 H (3.5-5.1) mmol/L Chloride 92 L (98-107) mmol/L Carbon Dioxide 24 (21-32) mmol/L Anion Gap 6.0 (3-11) BUN 33 H (7-18) mg/dl Creatinine 1.16 (0.6-1.2) mg/dl Est Cr Clr Drug Dosing 30.9 ml/min Est GFR ( Amer) 55.6 ml/min Est GFR (Non-Af Amer) 48.0 ml/min BUN/Creatinine Ratio 28.1 H (10-20) Glucose 88 (70-99) mg/dl POC Glucose (70-99) mg/dl Lactate 1.8 (0.4-2.0) mmol/L Calcium 10.0 (8.5-10.1) mg/dl Magnesium 2.3 (1.8-2.4) mg/dl Total Bilirubin 0.3 (0.2-1) mg/dl AST 189 H (15-37) U/L ALT 180 H (12-78) U/L Alkaline Phosphatase 252 H (45-117) U/L Troponin I < 0.015 (0-0.045) ng/ml Total Protein 8.1 (6.4-8.2) gm/dl Albumin 2.9 L (3.4-5.0) gm/dl Globulin 5.2 H (2.5-4.0) gm/dl Albumin/Globulin Ratio 0.6 L (0.9-2) Procalcitonin (0-0.5) ng/ml COVID-19 Eval Order SARS-CoV-2 (PCR) (Negative) 03/19/21 03/19/21 Range/Units 11:08 14:27 WBC (4.8-10.8) K/uL RBC (4.2-5.4) M/uL Hgb (12.0-16.0) g/dL Hct (37-47) % MCV (80-100) fL MCH (25-34) pg MCHC (32-36) g/dL RDW Std Deviation (36.4-46.3) fL RDW Coeff of Harish (11.5-14.5) % Plt Count (130-400) K/uL MPV (7.4-10.4) fL Immature Gran % (Auto) % Neut % (Auto) % Lymph % (Auto) % Free[place] % (Auto) % Eos % (Auto) % Baso % (Auto) % Neut # (Auto) (1.4-6.5) K/uL Lymph # (Auto) (1.2-3.4) K/uL [place] # (Auto) (0.11-0.59) K/uL Eos # (Auto) (0-0.5) K/uL Baso # (Auto) (0-0.2) K/uL Immature Gran # (Auto) (0.00-0.02) K/uL PT (9.0-12.0) Seconds INR (0.9-1.1) APTT (21.0-31.0) Seconds PTT Ratio Sodium (136-145) mmol/L Potassium (3.5-5.1) mmol/L Chloride (98-107) mmol/L Carbon Dioxide (21-32) mmol/L Anion Gap (3-11) BUN (7-18) mg/dl Creatinine (0.6-1.2) mg/dl Est Cr Clr Drug Dosing ml/min Est GFR ( Amer) ml/min Est GFR (Non-Af Amer) ml/min BUN/Creatinine Ratio (10-20) Glucose (70-99) mg/dl POC Glucose 74 (70-99) mg/dl Lactate (0.4-2.0) mmol/L Calcium (8.5-10.1) mg/dl Magnesium (1.8-2.4) mg/dl Total Bilirubin (0.2-1) mg/dl AST (15-37) U/L ALT (12-78) U/L Alkaline Phosphatase (45-117) U/L Troponin I (0-0.045) ng/ml Total Protein (6.4-8.2) gm/dl Albumin (3.4-5.0) gm/dl Globulin (2.5-4.0) gm/dl Albumin/Globulin Ratio (0.9-2) Procalcitonin 0.16 (0-0.5) ng/ml COVID-19 Eval Order SARS-CoV-2 (PCR) (Negative) Imaging Data Radiologist's Impression: Chest X-Ray 03/19/21 10:17 XR chest 1V portable CLINICAL HISTORY: SEPSIS COMPARISON STUDY: Chest radiograph February 04, 2021. FINDINGS: Lung volumes are normal. Lungs are clear. There is no pneumothorax or pleural effusion. Cardiac size is normal. Mediastinal contours are normal. There is no evidence for pulmonary edema. There are median sternotomy wires and surgical clips. IMPRESSION: No acute cardiopulmonary findings. ACT 112: Negative or not required by law. Electronically signed by: Chago Horner M.D. 03/19/2021 11:58 AM Abdomen/Pelvis CT 03/19/21 10:[address] WITH IV CONTRAST CT DOSE: 489.02 mGycm HISTORY: abdominal abscess weakness shortness of breath TECHNIQUE: Multiaxial CT images of the abdomen and pelvis were performed following the use of intravenous contrast. A dose lowering technique was utilized adhering to the principles of ALARA. COMPARISON STUDY: Abdomen and pelvis CT 03/08/2021. FINDINGS: Small fat-containing left-sided Bochdalek hernias again noted. The lung bases are clear. Severe chronic compression deformity at L1 status post vertebroplasty is again noted. The liver, gallbladder, spleen, and pancreas are unremarkable. No hydronephrosis. There are few subcentimeter hypodense lesions within the left kidney. These are technically too small to characterize but statistically represent cysts. No retroperitoneal lymphadenopathy. The main portal vein is patent. Bilateral adrenal gland thickening remains unchanged. Mild pelvic floor collapse. The bladder is unremarkable. The uterus is surgically absent. Evidence for prior subtotal colectomy with a right lower quadrant ileostomy. No dilated loops of bowel to suggest an obstruction. Short segment of thickening involving the jejunum within the left side the abdomen wit h mild adjacent fat stranding. This is best seen on image 144 and is consistent with a mild enteritis. Interval placement of a right pelvic percutaneous drainage catheter adjacent to the iliopsoas muscle. The large right pelvic abscess has essentially resolved in the interval. There are few punctate foci of gas and mild inflammatory change adjacent to the indwelling catheter. Gallbladder wall thickening has improved/resolved. IMPRESSION: 1. Interval placement of a right pelvic sidewall percutaneous drainage catheter. The right pelvic sidewall abscess has essentially resolved in the interval. There are few punctate foci of gas and mild inflammatory change remaining within the right pelvic sidewall adjacent to the drainage catheter. 2. Mild focal thickening within a jejunal loop within the left side the abdomen. This favors a mild enteritis. 3. No evidence for bowel obstruction. 4. Postoperative changes as described above. 5. Interval improvement/resolution of the gallbladder wall thickening. ACT 112: Negative or not required by law. Electronically signed by: Hernandez Barber M.D. 03/19/2021 3:49 PM Chest CTA 03/19/21 10:18 CT ANGIOGRAM OF THE CHEST CLINICAL HISTORY: sob weakness recent surgical drain placed patient is Covid positive. COMPARISON STUDY: September 08, 2016 TECHNIQUE: Following the IV administration of 119 mL of Optiray, CT angiogram of the thorax was performed from the thoracic inlet to the lung bases utilizing the pulmonary embolus protocol. Images are reviewed in the axial, sagittal, and coronal planes. IV contrast was administered without complication. MIP imaging was performed. A dose lowering technique was utilized adhering to the principles of ALARA. CT DOSE: FINDINGS: Adequate opacification within main pulmonary artery. No acute pulmonary embolus is seen. Main pulmonary artery is normal in caliber. There is no evidence of right heart strain. Heart is normal in size without evidence of pericardial effusion. Severe calcifications of the nome coronary arteries are seen. Status post CABG. No pathologically enlarged axillary mediastinal or hilar lymph nodes were visualized. Thoracic aorta is normal in caliber, slightly tortuous with extensive partial calcified plaques within its wall and minimal luminal irregularity. There are also ulcer like projections are seen within upper abdominal aorta. Visualized portion of thyroid gland shows no evidence of focal lesions. Small hiatal hernia is seen. Tracheobronchial tree is patent. Prominent azygos lobe is seen. Mild centrilobular upper lobe predominant emphysema is seen. No large infiltrates or consolidative lesions demonstrated. No pleural effusion is seen. Overall evaluation of pulmonary parenchyma is limited due to respiratory motion artifact. Limited evaluation of upper abdominal viscera shows 1.6 x 1.7 cm left adrenal nodule which is slightly enlarged since prior study in 2017. Evaluation of osseous structures shows compression fracture deformity of the L1 vertebral body and vertebroplasty changes which were also seen during 2017 exam. Sternotomy changes are new since prior study. IMPRESSION: 1. No evidence of pulmonary embolus. 2. Nondilated aorta with extensive atherosclerotic involvement predominantly within lower thoracic and upper abdominal portion which shows luminal irregularity and ulcer like projections. No aortic dissection or aneurysmal dilatation is seen. 3. No infiltrates or consolidative lesions. No pleural effusion. Evaluation of pulmonary parenchyma is limited due to respiratory motion artifact. 4. Mild interval enlargement of the left adrenal nodule. Please correlate this findings with prior history of adrenal abnormalities. 5. Emphysema. 6. Hiatal hernia. 7. Status post CABG is new since prior study. 8. Stable compression fracture deformity of the L1 and vertebroplasty changes. 9. The rest of findings as above. ACT 112: Negative or not required by law. The above report was generated using voice recognition software. It may contain grammatical, syntax or spelling errors. Electronically signed by: Crystal Easley DO 03/19/2021 3:39 PM ECG Data Indication: + other (arrythmia) Rate (beats per minute): 73 Rhythm: + normal sinus ECG Intervals/blocks: + Normal QRS, + Normal MD and + Normal QT-c ECG ST segments: + Normal ST segments MDM Narrative 1017: The patient was evaluated in room A9. A complete history and physical exam was performed Cardiac monitoring: An order was placed for continuous cardiac monitoring. The monitor shows a rate of 80 with sinus rhythm EMR reviewed. Patient was seen in the emergency department on March 08, 2021, 11 days ago. At that time the patient was diagnosed with intra-abdominal abscesses. During their emergency department stay the patient became septic and required IV antibiotics and was transferred to the [facility] ICU. 1614: Vital signs stable. Labs show a sodium of 122. Potassium of 5.8. Hyperkalemia was treated with 5 units of insulin IV push and 1 amp of D50. Calcium gluconate ordered for the patient. Patient is COVID-19 positive. CTA of the chest is negative for PE. No aortic dissection or dilatation there is mention of luminal irregularities which could be ulcers in the aorta. CT of the abdomen shows a resolving abscess. Given the patient's hyponatremia, hyperkalemia, and Covid positive, [facility] Case discussed with Dr. Harris who will evaluate the patient. Impression & Plan Acute hyperkalemia, Acute hyponatremia, COVID-19 Discharge Plan Visit Data Chief Complaint: Weakness Stated Complaint: WEAKNESS, HYPOTENSION ED Provider: Gucci Pederson Discharge Problem: Acute hyperkalemia, Acute hyponatremia, COVID-19 Patient Disposition: Admitted As Inpatient Forms Stand Alone Forms: [facility] Prescriptions Prescriptions: No Action venlafaxine [Effexor XR] 150 mg capsule,extended release 24hr 150 mg PO QAM RF: 0 alprazolam [Xanax] 0.25 mg tablet 0.25 - 0.5 mg PO TID PRN (Reason: Anxiety) RF: 0 metoprolol succinate [Toprol XL] 50 mg tablet extended release 24 hr 25 mg PO HS RF: 0 aspirin [Aspirin Low Dose] 81 mg Tablet,Delayed Release (Dr/Ec) 81 mg PO QAM RF: 0 magnesium oxide [MagOx] 400 mg (241.3 mg magnesium) tablet 400 mg PO BID RF: 0 Multivitamin 50 Plus Tablet 1 tab PO BID RF: 0 fluconazole [Diflucan] 200 mg tablet 200 mg PO QAM RF: 0 omeprazole 20 mg capsule,delayed release(DR/EC) 20 mg PO QAM RF: 0 amoxicillin-pot clavulanate [Augmentin] 875-125 mg tablet 1 tab PO BID RF: 0 pravastatin 80 mg tablet 80 mg PO QAM RF: 0 primidone [Mysoline] 50 mg tablet 100 mg PO BID RF: 0 Referrals Referrals: Agus Manzano MD [Primary Care Provider] -
--- NOTE | 2021-03-19 15:40 | CT Scan Report ---
CT ANGIOGRAM OF THE CHEST CLINICAL HISTORY: sob weakness recent surgical drain placed patient is Covid positive. COMPARISON STUDY: September 08, 2016 TECHNIQUE: Following the IV administration of 119 mL of Optiray, CT angiogram of the thorax was perfo rmed from the thoracic inlet to the lung bases utilizing the pulmonary embolus protocol. Images are r eviewed in the axial, sagittal, and coronal planes. IV contrast was administered without complication . MIP imaging was performed. A dose lowering technique was utilized adhering to the principles of AL MOISES. CT DOSE: FINDINGS: Adequate opacification within main pulmonary artery. No acute pulmonary embolus is seen. Main pulmona ry artery is normal in caliber. There is no evidence of right heart strain. Heart is normal in size without evidence of pericardial effusion. Severe calcifications of the [place] coronary arteries are seen. Status post CABG. No pathologically enlarged axillary mediastinal or hilar lymph nodes were visualized. Thoracic aorta is normal in caliber, slightly tortuous with extensive partial calcified plaques withi n its wall and minimal luminal irregularity. There are also ulcer like projections are seen within up per abdominal aorta. Visualized portion of thyroid gland shows no evidence of focal lesions. Small hiatal hernia is seen. Tracheobronchial tree is patent. Prominent azygos lobe is seen. Mild centrilobular upper lobe predominant emphysema is seen. No large infiltrates or consolidative lesions demonstrated. No pleural effusion is seen. Overall evaluation of pulmonary parenchyma is limited due to respiratory motion artifact. Limited evaluation of upper abdominal viscera shows 1.6 x 1.7 cm left adrenal nodule which is slightl y enlarged since prior study in 2017. Evaluation of osseous structures shows compression fracture deformity of the L1 vertebral body and ve rtebroplasty changes which were also seen during 2017 exam. Sternotomy changes are new since prior st udy. IMPRESSION: 1. No evidence of pulmonary embolus. 2. Nondilated aorta with extensive atherosclerotic involvement predominantly within lower thoracic a nd upper abdominal portion which shows luminal irregularity and ulcer like projections. No aortic dis section or aneurysmal dilatation is seen. 3. No infiltrates or consolidative lesions. No pleural effusion. Evaluation of pulmonary parenchyma is limited due to respiratory motion artifact. 4. Mild interval enlargement of the left adrenal nodule. Please correlate this findings with prior h istory of adrenal abnormalities. 5. Emphysema. 6. Hiatal hernia. 7. Status post CABG is new since prior study. 8. Stable compression fracture deformity of the L1 and vertebroplasty changes. 9. The rest of findings as above. ACT 112: Negative or not required by law. The above report was generated using voice recognition software. It may contain grammatical, syntax o r spelling errors. Electronically signed by: Crystal Easley DO 03/19/2021 3:39 PM
--- NOTE | 2021-03-19 15:51 | CT Scan Report ---
ABDOMEN AND PELVIS CT WITH IV CONTRAST CT DOSE: 489.02 mGycm HISTORY: abdominal abscess weakness shortness of breath TECHNIQUE: Multiaxial CT images of the abdomen and pelvis were performed following the use of intrave nous contrast. A dose lowering technique was utilized adhering to the principles of ALARA. COMPARISON STUDY: Abdomen and pelvis CT 03/08/2021. FINDINGS: Small fat-containing left-sided Bochdalek hernias again noted. The lung bases are clear. Se deon chronic compression deformity at L1 status post vertebroplasty is again noted. The liver, gallbl adder, spleen, and pancreas are unremarkable. No hydronephrosis. There are few subcentimeter hypodens e lesions within the left kidney. These are technically too small to characterize but statistically r epresent cysts. No retroperitoneal lymphadenopathy. The main portal vein is patent. Bilateral adrenal gland thickening remains unchanged. Mild pelvic floor collapse. The bladder is unremarkable. The [place] is surgically absent. Evidence for prior subtotal colectomy with a right lower quadrant ileostomy . No dilated loops of bowel to suggest an obstruction. Short segment of thickening involving the jeju num within the left side the abdomen with mild adjacent fat stranding. This is best seen on image 144 and is consistent with a mild enteritis. Interval placement of a right pelvic percutaneous drainage catheter adjacent to the iliopsoas muscle. The large right pelvic abscess has essentially resolved in the interval. There are few punctate foci of gas and mild inflammatory change adjacent to the indwel ling catheter. Gallbladder wall thickening has improved/resolved. IMPRESSION: 1. Interval placement of a right pelvic sidewall percutaneous drainage catheter. The right pelvic geni ewall abscess has essentially resolved in the interval. There are few punctate foci of gas and mild i nflammatory change remaining within the right pelvic sidewall adjacent to the drainage catheter. 2. Mild focal thickening within a jejunal loop within the left side the abdomen. This favors a mild e nteritis. 3. No evidence for bowel obstruction. 4. Postoperative changes as described above. 5. Interval improvement/resolution of the gallbladder wall thickening. ACT 112: Negative or not required by law. Electronically signed by: Hernandez Barber M.D. 03/19/2021 3:49 PM
--- NOTE | 2021-03-19 17:23 | History & Physical Report ---
Date of Service March 19, 2021 Assessment & Plan (1) Acute hyponatremia: Plan: Patient is hyponatremic, may be somewhat hypovolemic, mild NEVAEH noted Will admit for further management of this, may be etiology by her weakness Check serum and urine awesome's along with urine electrolytes Gentle IV hydration with normal saline Consider nephrology consultation if no immediate improvement We will ask PT/OT to evaluate for ongoing weakness (2) Acute hyperkalemia: Plan: Patient received 5 units of regular insulin along with amp of D50 for this Will recheck tonight and treat further as appropriate (3) Abdominal abscess: Plan: Drain appears to be functioning normally, CT scan of the abdomen shows the drain in place I do see the patient is Augmentin, will continue this (4) COVID-19: Plan: At this point patient is not hypoxic and does not seem to be having any sig nificant symptoms We will hold off on treatment for now, monitor expectantly Continue airborne precautions as ordered (5) Crohns disease: Plan: Patient does have a history of an ileostomy, does not appear to be on any chronic medications I will continue to monitor (6) Hyperlipidemia: Plan: Continue pravastatin or pharmacy equivalent (7) CAD (coronary artery disease): Plan: Continue outpatient medications as ordered, on low-dose aspirin, Toprol 50 mg, pravastatin History of Present Illness Chief Complaint: Lower extremity weakness Primary Care Provider: Agus Manzano MD This is a 70-year-old female with past mental history of Crohn's disease, status post ileostomy in the distant past with more recent presentation with abdominal abscess that presents today complaining of lower extremity weakness. Patient is pleasant good historian. Patient had presented to the emergency room on 03/09 with low back pain and questionable sepsis. She was found to have intra-abdominal abscess. She was transported emergently to [facility] where she had a drain placed into the abscess. Patient tells me she was discharged from their facility on 03/12. Not long after she returned home she found she was having some worsening weakness. This is mostly in the lower extremities to the point she was having difficulty ambulating. She denies any significant abdominal pain but she does complain of some nausea. She tells me she is tolerating food and liquids without difficulty and has not had any vomiting. However, symptoms became worse which eventually prompted her to come to the emergency room for further evaluation. In the emergency room, she was found to be hyponatremic with a sodium of 122. Also of note, she tested positive for Covid. She thinks she may have been exposed to someone over the past week. She is denying any shortness of breath, fevers, rigors, chills, or other infectious symptoms that may be related. She is also denying losing any sense of taste or smell. Allergies Allergy/AdvReac Type Severity Reaction Status Date / Time No Known Allergies Allergy Verified 03/19/21 14:28 Home Medications Medication Instructions Recorded Confirmed Type venlafaxine 150 mg 150 mg PO QAM 12/22/18 03/19/21 History capsule,extended release 24 hr (Effexor XR) alprazolam 0.25 mg tablet (Xanax) 0.25 - 0.5 mg PO TID PRN tab 02/14/19 03/19/21 History metoprolol succinate 50 mg 25 mg PO HS tab 07/26/19 03/19/21 History tablet,extended release 24 hr (Toprol XL) primidone 50 mg tablet (Mysoline) 100 mg PO BID 01/25/21 03/19/21 History aspirin 81 mg tablet,delayed 81 mg PO QAM 03/08/21 03/19/21 History release (Aspirin Low Dose) magnesium oxide 400 mg (241.3 mg 400 mg PO BID 03/08/21 03/19/21 History magnesium) tablet (MagOx) zaphczfyyach-cvxekyon-qyqofn 1 tab PO BID 03/08/21 03/19/21 History tablet (Multivitamin 50 Plus) amoxicillin 875 mg-potassium 1 tab PO BID 03/19/21 03/19/21 History clavulanate 125 mg tablet (Augmentin) fluconazole 200 mg tablet 200 mg PO QAM 03/19/21 03/19/21 History (Diflucan) omeprazole 20 mg capsule,delayed 20 mg PO QAM 03/19/21 03/19/21 History release pravastatin 80 mg tablet 80 mg PO QAM 03/19/21 03/19/21 History Past Med/Surg History Medical History (Updated 03/19/21 @ 17:33 by Bernardino Sue DO) CAD (coronary artery disease) 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, [facility]: Rojas to LAD, SARIKA to RCA, saphenous vein graft to ramus intermedius, saphenous vein graft to om 2 Crohn's colitis Crohns disease Diarrhea Failure of rotator cuff repair HTN (hypertension) Hypercholesterolemia Hypokalemia Left shoulder pain Tobacco abuse Surgical History History of coronary artery bypass graft Family History Other Cancer Heart disease Hypertension Social History Smoking Status: Former smoker Tobacco Type: Cigarettes Cigarettes Per Day: 10; Second Hand Exposure: No; Hx Alcohol Use: Yes Alcohol type: beer and wine Hx Substance Use: No Preferred Language: Pashto Communication Ability: Effective Sand Buffer Required: No Beliefs That Will Affect Care: None marital status: / Current Living Situation: Alone current occupational status: retired Feels Safe at Home: Yes Assistive Devices: None Review of Systems Constitutional: + weakness; no fever, no chills, no weight loss and no weight gain Eyes: as per Subjective / HPI Respiratory: no cough, no chest congestion, no dyspnea and no dyspnea on exertion Cardiovascular: no chest pain, no orthopnea, no palpitations, no lightheadedness and no edema Gastrointestinal: + nausea; no abdominal pain, no vomiting, no change in bowel habits, no constipation and no diarrhea/loose stools Genitourinary: no dysuria, no difficulty urinating, no urinary frequency, no urinary hesitancy, no urinary urgency and no flank pain Musculoskeletal: no back pain, no neck pain, no joint pain, no stiffness and no myalgia Integumentary: no rash Neurologic: no gait abnormality, no unsteadiness, no falls and no generalized weakness Physical Exam Constitutional: cooperative; no acute distress Neck: trachea midline, no thyromegaly Respiratory: normal respiratory effort Auscultation: lungs clear to auscultation bilaterally; no crackles, no rales, no rhonchi and no wheezes Cardiovascular: Rate/Rhythm: regular rate and regular rhythm Heart Sounds: normal S1 and normal S2 Gastrointestinal (Abdomen): Inspection/Auscultation: abdomen normal to inspection Percussion/Palpation: abdomen soft; abdomen nontender, no guarding, abdomen not rigid and no hepatosplenomegaly Ileostomy present, scant brown fluid in bag. Drain in place, minimal serosanguineous fluid in bulb. Skin: no rashes, warm and dry Results & Data Results & Data ([facility]) Vital Signs (Past 12 Hours) Vital Signs Temp Pulse Pulse Resp BP BP Pulse Ox 03/19/21 14:14 98 03/19/21 14:00 81 15 129/82 03/19/21 13:30 79 20 103/63 03/19/21 13:00 79 76 13 112/60 112/60 03/19/21 12:31 80 14 101/74 97 03/19/21 12:00 76 25 H 107/62 94 03/19/21 11:30 70 24 112/64 98 03/19/21 11:29 20 98 03/19/21 11:00 74 24 117/73 03/19/21 10:55 19 03/19/21 10:30 73 25 H 112/64 03/19/21 10:17 75 18 112/64 97 03/19/21 10:05 37.3 C 72 22 129/82 95 03/19/21 10:00 69 20 129/82 98 Laboratory Results Laboratory Results WBC 6.43 K/uL (4.8-10.8) 03/19/21 11:08 RBC 4.60 M/uL (4.2-5.4) 03/19/21 11:08 Hgb 12.1 g/dL (12.0-16.0) 03/19/21 11:08 Hct 37.2 % (37-47) 03/19/21 11:08 MCV 80.9 fL (80-100) 03/19/21 11:08 MCH 26.3 pg (25-34) 03/19/21 11:08 MCHC 32.5 g/dL (32-36) 03/19/21 11:08 RDW Std Deviation 47.9 fL (36.4-46.3) H 03/19/21 11:08 RDW Coeff of Harish 16.5 % (11.5-14.5) H 03/19/21 11:08 Plt Count 504 K/uL (130-400) H 03/19/21 11:08 MPV 9.0 fL (7.4-10.4) 03/19/21 11:08 Immature Gran % (Auto) 0.8 % 03/19/21 11:08 Neut % (Auto) 69.6 % 03/19/21 11:08 Lymph % (Auto) 22.9 % 03/19/21 11:08 [place] % (Auto) 6.2 % 03/19/21 11:08 Eos % (Auto) 0.2 % 03/19/21 11:08 Baso % (Auto) 0.3 % 03/19/21 11:08 Neut # (Auto) 4.48 K/uL (1.4-6.5) 03/19/21 11:08 Lymph # (Auto) 1.47 K/uL (1.2-3.4) 03/19/21 11:08 [place] # (Auto) 0.40 K/uL (0.11-0.59) 03/19/21 11:08 Eos # (Auto) 0.01 K/uL (0-0.5) 03/19/21 11:08 Baso # (Auto) 0.02 K/uL (0-0.2) 03/19/21 11:08 Immature Gran # (Auto) 0.05 K/uL (0.00-0.02) H 03/19/21 11:08 PT 9.8 Seconds (9.0-12.0) 03/19/21 11:08 INR 1.0 (0.9-1.1) 03/19/21 11:08 APTT 35.9 Seconds (21.0-31.0) H 03/19/21 11:08 PTT Ratio 1.4 03/19/21 11:08 Sodium 122 mmol/L (136-145) L 03/19/21 11:08 Potassium 5.8 mmol/L (3.5-5.1) H 03/19/21 11:08 Chloride 92 mmol/L (98-107) L 03/19/21 11:08 Carbon Dioxide 24 mmol/L (21-32) 03/19/21 11:08 Anion Gap 6.0 (3-11) 03/19/21 11:08 BUN 33 mg/dl (7-18) H 03/19/21 11:08 Creatinine 1.16 mg/dl (0.6-1.2) 03/19/21 11:08 Est Cr Clr Drug Dosing 30.9 ml/min 03/19/21 11:08 Est GFR ( Amer) 55.6 ml/min 03/19/21 11:08 Est GFR (Non-Af Amer) 48.0 ml/min 03/19/21 11:08 BUN/Creatinine Ratio 28.1 (10-20) H 03/19/21 11:08 Glucose 88 mg/dl (70-99) 03/19/21 11:08 POC Glucose 74 mg/dl (70-99) 03/19/21 14:27 Lactate 1.8 mmol/L (0.4-2.0) 03/19/21 11:08 Calcium 10.0 mg/dl (8.5-10.1) 03/19/21 11:08 Magnesium 2.3 mg/dl (1.8-2.4) 03/19/21 11:08 Total Bilirubin 0.3 mg/dl (0.2-1) 03/19/21 11:08 AST 189 U/L (15-37) H 03/19/21 11:08 ALT 180 U/L (12-78) H 03/19/21 11:08 Alkaline Phosphatase 252 U/L (45-117) H 03/19/21 11:08 Troponin I < 0.015 ng/ml (0-0.045) 03/19/21 11:08 Total Protein 8.1 gm/dl (6.4-8.2) 03/19/21 11:08 Albumin 2.9 gm/dl (3.4-5.0) L 03/19/21 11:08 Globulin 5.2 gm/dl (2.5-4.0) H 03/19/21 11:08 Albumin/Globulin Ratio 0.6 (0.9-2) L 03/19/21 11:08 Procalcitonin 0.16 ng/ml (0-0.5) 03/19/21 11:08 COVID-19 Eval Order Covid19 at [facility] 03/19/21 10:48 SARS-CoV-2 (PCR) POSITIVE (Negative) A* 03/19/21 10:48 Impressions Chest X-Ray 03/19/21 10:17 XR chest 1V portable CLINICAL HISTORY: SEPSIS COMPARISON STUDY: Chest radiograph February 04, 2021. FINDINGS: Lung volumes are normal. Lungs are clear. There is no pneumothorax or pleural effusion. Cardiac size is normal. Mediastinal contours are normal. There is no evidence for pulmonary edema. There are median sternotomy wires and surgical clips. IMPRESSION: No acute cardiopulmonary findings. ACT 112: Negative or not required by law. Electronically signed by: Chago Horner M.D. 03/19/2021 11:58 AM Abdomen/Pelvis CT 03/19/21 10:[address] WITH IV CONTRAST CT DOSE: 489.02 mGycm HISTORY: abdominal abscess weakness shortness of breath TECHNIQUE: Multiaxial CT images of the abdomen and pelvis were performed following the use of intravenous contrast. A dose lowering technique was utilized adhering to the principles of ALARA. COMPARISON STUDY: Abdomen and pelvis CT 03/08/2021. FINDINGS: Small fat-containing left-sided Bochdalek hernias again noted. The lung bases are clear. Severe chronic compression deformity at L1 status post vertebroplasty is again noted. The liver, gallbladder, spleen, and pancreas are unremarkable. No hydronephrosis. There are few subcentimeter hypodense lesions within the left kidney. These are technically too small to characterize but statistically represent cysts. No retroperitoneal lymphadenopathy. The main portal vein is patent. Bilateral adrenal gland thickening remains unchanged. Mild pelvic floor collapse. The bladder is unremarkable. The uterus is surgically absent. Evidence for prior subtotal colectomy with a right lower quadrant ileostomy. No dilated loops of bowel to suggest an obstruction. Short segment of thickening involving the jejunum within the left side the abdomen with mild adjacent fat stranding. This is best seen on image 144 and is consistent with a mild enteritis. Interval placement of a right pelvic percutaneous drainage catheter adjacent to the iliopsoas muscle. The large right pelvic abscess has essentially resolved in the interval. There are few punctate foci of gas and mild inflammatory change adjacent to the indwelling catheter. Gallbladder wall thickening has improved/resolved. IMPRESSION: 1. Interval placement of a right pelvic sidewall percutaneous drainage catheter. The right pelvic sidewall abscess has essentially resolved in the interval. There are few punctate foci of gas and mild inflammatory change remaining within the right pelvic sidewall adjacent to the drainage catheter. 2. Mild focal thickening within a jejunal loop within the left side the abdomen. This favors a mild enteritis. 3. No evidence for bowel obstruction. 4. Postoperative changes as described above. 5. Interval improvement/resolution of the gallbladder wall thickening. ACT 112: Negative or not required by law. Electronically signed by: Hernandez Barber M.D. 03/19/2021 3:49 PM Chest CTA 03/19/21 10:18 CT ANGIOGRAM OF THE CHEST CLINICAL HISTORY: sob weakness recent surgical drain placed patient is Covid positive. COMPARISON STUDY: September 08, 2016 TECHNIQUE: Following the IV administration of 119 mL of Optiray, CT angiogram of the thorax was performed from the thoracic inlet to the lung bases utilizing the pulmonary embolus protocol. Images are reviewed in the axial, sagittal, and coronal planes. IV contrast was administered without complication. MIP imaging was performed. A dose lowering technique was utilized adhering to the principles of ALARA. CT DOSE: FINDINGS: Adequate opacification within main pulmonary artery. No acute pulmonary embolus is seen. Main pulmonary artery is normal in caliber. There is no evidence of right heart strain. Heart is normal in size without evidence of pericardial effusion. Severe calcifications of the [place] coronary arteries are seen. Status post CABG. No pathologically enlarged axillary mediastinal or hilar lymph nodes were visualized. Thoracic aorta is normal in caliber, slightly tortuous with extensive partial calcified plaques within its wall and minimal luminal irregularity. There are also ulcer like projections are seen within upper abdominal aorta. Visualized portion of thyroid gland shows no evidence of focal lesions. Small hiatal hernia is seen. Tracheobronchial tree is patent. Prominent azygos lobe is seen. Mild centrilobular upper lobe predominant emphysema is seen. No large infiltrates or consolidative lesions demonstrated. No pleural effusion is seen. Overall evaluation of pulmonary parenchyma is limited due to respiratory motion artifact. Limited evaluation of upper abdominal viscera shows 1.6 x 1.7 cm left adrenal nodule which is slightly enlarged since prior study in 2017. Evaluation of osseous structures shows compression fracture deformity of the L1 vertebral body and vertebroplasty changes which were also seen during 2017 exam. Sternotomy changes are new since prior study. IMPRESSION: 1. No evidence of pulmonary embolus. 2. Nondilated aorta with extensive atherosclerotic involvement predominantly wi thin lower thoracic and upper abdominal portion which shows luminal irregularity and ulcer like projections. No aortic dissection or aneurysmal dilatation is seen. 3. No infiltrates or consolidative lesions. No pleural effusion. Evaluation of pulmonary parenchyma is limited due to respiratory motion artifact. 4. Mild interval enlargement of the left adrenal nodule. Please correlate this findings with prior history of adrenal abnormalities. 5. Emphysema. 6. Hiatal hernia. 7. Status post CABG is new since prior study. 8. Stable compression fracture deformity of the L1 and vertebroplasty changes. 9. The rest of findings as above. ACT 112: Negative or not required by law. The above report was generated using voice recognition software. It may contain grammatical, syntax or spelling errors. Electronically signed by: Crystal Easley DO 03/19/2021 3:39 PM PG Care Time/CCT Total # of Minutes Spent Total Time Spent with Patient: Total time spent is greater than 50% in coordination of care (as documented) at patient's floor/unit and/or counseling patient: Coding Level of Care Code 18780 Initial Inpt Care Lvl 3 Diagnoses Acute hyponatremia E87.1 Acute hyperkalemia E87.5 COVID-19 U07.1 Crohns disease K50.90 Digestive disease complication type: without complication Gastrointestinal tract location: unspecified location Hyperlipidemia E78.5 Hyperlipidemia type: unspecified CAD (coronary artery disease) I25.10 Abdominal abscess (1) Crohns disease Digestive disease complication type: without complication Gastrointestinal tract location: unspecified location Qualified Code(s): K50.90 - Crohn's disease, unspecified, without complications (2) Hyperlipidemia Hyperlipidemia type: unspecified Qualified Code(s): E78.5 - Hyperlipidemia, unspecified
[2021-03-19] MEDS ORDERED: ACETAMINOPHEN 325 MG TAB PO PRN (19:08)
[2021-03-19] MEDS: SODIUM CHLORIDE 0.9% 1000ML 1,000 ML IV SCH (20:45)
[2021-03-19] MEDS: METOPROLOL SUCC 25MG EXT REL TAB PO SCH (20:46)
[2021-03-19] MEDS: AMOXICILLIN/CLAVULANATE 875 MG TAB PO SCH (20:46)
[2021-03-19] MEDS: MAGNESIUM OXIDE 400 MG TAB PO SCH (20:47)
[2021-03-19] MEDS: HEPARIN SOD 5,000 UNIT/0.5 ML VIAL SQ SCH (20:49)
[2021-03-19 21:23] LABS: BUN Creatinine Ratio 28.7 (10-20); Calcium 10.3 mg/dl (8.5-10.1); Creatinine Clr Calc Pharmacy 33.2 ml/min; Est GFR (Non-African American) 51.8 ml/min; Potassium 5.2 mmol/L (3.5-5.1)
[2021-03-19] MEDS: ALPRAZolam 0.25 MG TABLET PO PRN (21:47)
[2021-03-19 22:49] LABS: Appearance Urine Clear (Clear); Bacteria Urine Automated Negative (Negative); Bilirubin Urine Negative (Negative); Blood Urine Negative (Negative); Color Urine Yellow; Glucose Urine UA Trace (Negative); Ketones Urine Negative (Negative); Leukocyte Esterase Urine Negative (Negative); Nitrite Urine Negative (Negative); Protein Urine Trace (Negative); RBC Urine Automated 0-4 /hpf (0-4); Specific Gravity Urine 1.045 (1.000-1.030); Urobilinogen Urine Negative (Negative)
--- NOTE | 2021-03-20 05:46 | Electrocardiogram Report ---
Test Reason : Blood Pressure : / mmHG Vent. Rate : 073 BPM Atrial Rate : 073 BPM P-R Int : 124 ms QRS Dur : 086 ms QT Int : 402 ms P-R-T Axes : 052 054 085 degrees QTc Int : 442 ms Normal sinus rhythm Abnormal ECG When compared with ECG of 25-JAN-2021 17:01, Nonspecific T wave abnormality no longer evident in Inferior leads Confirmed by Evens Bates ([id number]) on 03/20/2021 5:45:41 AM Referred By: REFERRED SELF Confirmed By:Evens Bates
[2021-03-20 06:43] LABS: Basophils # (auto) 0.02 K/uL (0-0.2); Basophils % (auto) 0.4 %; Eosinophils # (auto) 0.01 K/uL (0-0.5); Eosinophils % (auto) 0.2 %; Hematocrit (blood only) 35.4 % (37-47); Hemoglobin 11.8 g/dL (12.0-16.0); Immature Granulocytes # (auto) 0.02 K/uL (0.00-0.02); Immature Granulocytes % (auto) 0.4 %; Lymphocytes # (auto) 1.99 K/uL (1.2-3.4); Lymphocytes % (auto) 36.2 %; Mean Corpuscular Hemoglobin 26.7 pg (25-34); Mean Corpuscular Hgb Conc 33.3 g/dL (32-36); Mean Corpuscular Volume 80.1 fL (80-100); Mean Platelet Volume 8.9 fL (7.4-10.4); Monocytes # (auto) 0.39 K/uL (0.11-0.59); Monocytes % (auto) 7.1 %; Neutrophils # (auto) 3.06 K/uL (1.4-6.5); Neutrophils % (auto) 55.7 %; Platelet Count 502 K/uL (130-400); RDW Coefficient of Variation 16.6 % (11.5-14.5); RDW Standard Deviation 48.6 fL (36.4-46.3); Red Blood Count 4.42 M/uL (4.2-5.4); White Blood Count 5.49 K/uL (4.8-10.8)
[2021-03-20 07:11] LABS: BUN Creatinine Ratio 30.7 (10-20); Calcium 10.1 mg/dl (8.5-10.1); Creatinine Clr Calc Pharmacy 34.2 ml/min; Est GFR (Non-African American) 53.5 ml/min; Potassium 4.8 mmol/L (3.5-5.1)
[2021-03-20] MEDS: SODIUM CHLORIDE 0.9% 1000ML 1,000 ML IV SCH ×2 (07:52→20:07)
[2021-03-20] MEDS: HEPARIN SOD 5,000 UNIT/0.5 ML VIAL SQ SCH ×3 (07:53→20:08)
[2021-03-20] MEDS: AMOXICILLIN/CLAVULANATE 875 MG TAB PO SCH ×2 (08:35→20:08)
[2021-03-20] MEDS: MULTIVITAMIN TAB PO SCH (08:35)
[2021-03-20] MEDS: PRIMIDONE 50 MG TAB PO SCH ×2 (08:35→20:09)
[2021-03-20] MEDS: PANTOprazole 40 MG TAB PO SCH (08:35)
[2021-03-20] MEDS: PRAVASTATIN SOD 40 MG TAB PO SCH (08:36)
[2021-03-20] MEDS: MAGNESIUM OXIDE 400 MG TAB PO SCH ×2 (08:36→20:09)
[2021-03-20] MEDS: VENLAFAXINE HCL XR 150 MG CAPXR PO SCH (08:36)
[2021-03-20] MEDS: FLUCONAZOLE 100 MG TAB PO SCH (08:36)
[2021-03-20] MEDS: ASPIRIN 81 MG ECTAB PO SCH (08:36)
[2021-03-20 13:18] LABS: BUN Creatinine Ratio 37.9 (10-20); Calcium 9.3 mg/dl (8.5-10.1); Creatinine Clr Calc Pharmacy 48.3 ml/min; Est GFR (African American) 94.3 ml/min; Est GFR (Non-African American) 81.3 ml/min
--- NOTE | 2021-03-20 14:19 | Hospitalist Progress Note ---
Date of Service March 20, 2021 Assessment & Plan (1) Acute hyponatremia: Plan: Patient is hyponatremic, may be somewhat hypovolemic. - Continue normal saline at 100 mL/hr -> Correctly at appropriate rate. - Urine osms never obtained; will re-order with AM labs tomorrow. (2) Abdominal abscess: Plan: Prior infection that was treated at [place]. Drain appears to be functioning normally. CT a/p on 03/19 shows the drain in place and infection resolving. - Continue Augmentin (3) COVID-19: Plan: At this point patient is not hypoxic and does not seem to be having any significant symptoms. - Hold treatment for now, monitor expectantly. - Continue airborne precautions (4) Crohns disease: Plan: Patient does have a history of an ileostomy. Per prior notes, has failed 3 biologics. - No acute abdominal pain; no acute issues. (5) CAD (coronary artery disease): Plan: No chest pain to indicate acute ischemia. - Continue home ASA, metoprolol, statin (6) Depression: Plan: - Continue venlafaxine (7) DVT prophylaxis: Plan: Heparin 5,000 units SQ Q8h Admission and Anticipated Discharge Date Admission Date: March 19, 2021 Subjective Still feels tired and weak today. Legs are fine when lying down, but when she stands they get very shaky. Reports no fevers/chills, chest pain, shortness of breath, abdominal pain, nausea, or vomiting. Physical Exam Constitutional: WD/WN, vitals as above Eyes: EOM intact bilaterally; no conjunctival abnormality ENMT: external ear and nose normal, oropharynx normal Neck: trachea midline, no thyromegaly normal visual inspection Respiratory: normal respiratory effort, lungs clear to auscultation no respiratory distress Cardiovascular: RRR, no murmur, no edema Gastrointestinal (Abdomen): Inspection/Auscultation: normal bowel sounds and + abdominal surgical drain present (Right side); + abdomen abnormal to inspection (Colostomy bag noted) and abdomen not distended Musculoskeletal: no cyanosis or clubbing, extremities motor strength 5/5 Skin: no rashes, warm and dry Neurologic: moves all extremities and awake Psychiatric: Orientation: alert, oriented to person and cooperative Results & Data Results & Data ([facility]) Vital Signs (Past 12 Hours) Vital Signs Temp Pulse Pulse Resp BP Pulse Ox Pulse Ox 03/20/21 13:10 96 03/20/21 12:06 36.7 C 17 99/68 L 98 03/20/21 09:00 94 H 03/20/21 08:00 94 H 03/20/21 07:59 36.8 C 86 18 135/76 98 03/20/21 03:49 36.8 C 80 18 103/67 95 PG Care Time/CCT Total # of Minutes Spent Total Time Spent with Patient: Total time spent is greater than 50% in coordination of care (as documented) at patient's floor/unit and/or counseling patient: Coding Level of Care Code 95024 Subseq Hosp Care Lvl 2 Diagnoses Acute hyponatremia E87.1 Abdominal abscess COVID-19 U07.1 Crohns disease K50.90 Digestive disease complication type: without complication Gastrointestinal tract location: unspecified location CAD (coronary artery disease) I25.10 DVT prophylaxis Z29.9 Depression F32.9 Depression Type: major depressive disorder Major depression recurrence: unspecified whether recurrent Active/Remission status: remission status unspecified (1) Crohns disease Digestive disease complication type: without complication Gastrointestinal tract location: unspecified location Qualified Code(s): K50.90 - Crohn's diseas e, unspecified, without complications (2) Depression Depression Type: major depressive disorder Major depression recurrence: unspecified whether recurrent Active/Remission status: remission status unspecified Qualified Code(s): F32.9 - Major depressive disorder, single episode, unspecified
[2021-03-20] MEDS ORDERED: NYSTATIN POWDER 15GM BTL EXT PRN (16:00)
[2021-03-20] MEDS: METOPROLOL SUCC 25MG EXT REL TAB PO SCH (20:10)
[2021-03-20] MEDS: ALPRAZolam 0.25 MG TABLET PO PRN (21:06)
[2021-03-21] MEDS: SODIUM CHLORIDE 0.9% 1000ML 1,000 ML IV SCH ×2 (05:54→15:30)
[2021-03-21] MEDS: HEPARIN SOD 5,000 UNIT/0.5 ML VIAL SQ SCH ×3 (06:02→20:04)
[2021-03-21 07:37] LABS: Hematocrit (blood only) 29.4 % (37-47); Hemoglobin 9.3 g/dL (12.0-16.0); Mean Corpuscular Hemoglobin 25.8 pg (25-34); Mean Corpuscular Hgb Conc 31.6 g/dL (32-36); Mean Corpuscular Volume 81.7 fL (80-100); Mean Platelet Volume 8.7 fL (7.4-10.4); Platelet Count 397 K/uL (130-400); RDW Coefficient of Variation 16.5 % (11.5-14.5); RDW Standard Deviation 49.5 fL (36.4-46.3); White Blood Count 3.89 K/uL (4.8-10.8)
[2021-03-21] MEDS: ASPIRIN 81 MG ECTAB PO SCH (07:50)
[2021-03-21] MEDS: PRAVASTATIN SOD 40 MG TAB PO SCH (07:50)
[2021-03-21] MEDS: PANTOprazole 40 MG TAB PO SCH (07:51)
[2021-03-21] MEDS: PRIMIDONE 50 MG TAB PO SCH ×2 (07:51→20:03)
[2021-03-21] MEDS: MULTIVITAMIN TAB PO SCH (07:51)
[2021-03-21] MEDS: VENLAFAXINE HCL XR 150 MG CAPXR PO SCH (07:51)
[2021-03-21] MEDS: FLUCONAZOLE 100 MG TAB PO SCH (07:51)
[2021-03-21] MEDS: MAGNESIUM OXIDE 400 MG TAB PO SCH ×2 (07:51→20:03)
[2021-03-21] MEDS: AMOXICILLIN/CLAVULANATE 875 MG TAB PO SCH ×2 (07:52→20:03)
[2021-03-21 08:21] LABS: Albumin Globulin Ratio 0.6 (0.9-2); Albumin Level 2.2 gm/dl (3.4-5.0); BUN Creatinine Ratio 26.1 (10-20); Bilirubin,Total 0.3 mg/dl (0.2-1); Calcium 8.7 mg/dl (8.5-10.1); Creatinine Clr Calc Pharmacy 59.2 ml/min; Est GFR (African American) 107.2 ml/min; Est GFR (Non-African American) 92.5 ml/min; Globulin 3.8 gm/dl (2.5-4.0); Magnesium 1.9 mg/dl (1.8-2.4); Potassium 3.7 mmol/L (3.5-5.1)
--- NOTE | 2021-03-21 14:09 | Hospitalist Progress Note ---
Date of Service March 21, 2021 Assessment & Plan (1) Acute hyponatremia: Plan: Patient is hyponatremic, may be somewhat hypovolemic. Patient does report she drinks "a lot" of water, so probably some element of dilutional effect. - Stopped normal saline on 03/21. - Urine osms on 03/21 indicated some element of SIADH as well. - Na is 131 today. Will give water restriction and consider salt tabs as well. Discussed importance of limiting free water and going with more Boost/Ensure drinks. (2) Abdominal abscess: Plan: Prior infection that was treated at [place]. Drain appears to be functioning normally. CT a/p on 03/19 shows the drain in place and infection resolving. - Continue Augmentin (3) COVID-19: Plan: At this point patient is not hypoxic and does not seem to be having any significant symptoms. - Hold treatment for now, monitor expectantly. - Continue airborne precautions (4) Crohns disease: Plan: Patient does have a history of an ileostomy. Per prior notes, has failed 3 biologics. - No acute abdominal pain; no acute issues. (5) CAD (coronary artery disease): Plan: No chest pain to indicate acute ischemia. - Continue home ASA, metoprolol, statin (6) Depression: Plan: - Continue venlafaxine (7) DVT prophylaxis: Plan: Heparin 5,000 units SQ Q8h Admission and Anticipated Discharge Date Admission Date: March 19, 2021 Subjective Feels much improved today! More energy. Legs don't feel nearly as weak and was up and walking. Reports no fevers/chills, chest pain, shortness of breath, abdominal pain, nausea, or vomiting. Physical Exam Constitutional: WD/WN, vitals as above Eyes: EOM intact bilaterally; no conjunctival abnormality ENMT: external ear and nose normal, oropharynx normal Neck: trachea midline, no thyromegaly normal visual inspection Respiratory: normal respiratory effort, lungs clear to auscultation no respiratory distress Cardiovascular: RRR, no murmur, no edema Gastrointestinal (Abdomen): Inspection/Auscultation: normal bowel sounds and + abdominal surgical drain present (Right side); + abdomen abnormal to inspection (Colostomy bag noted) and abdomen not distended Musculoskeletal: no cyanosis or clubbing, extremities motor strength 5/5 Skin: no rashes, warm and dry Neurologic: moves all extremities and awake Psychiatric: Orientation: alert, oriented to person and cooperative Results & Data Results & Data ([facility]) Vital Signs (Past 12 Hours) Vital Signs Temp Pulse Pulse Resp BP Pulse Ox 03/21/21 11:23 36.7 C 79 18 99/52 L 98 03/21/21 07:34 66 03/21/21 07:24 36.6 C 75 18 103/55 L 96 03/21/21 04:23 36.8 C 63 22 90/37 L 95 PG Care Time/CCT Total # of Minutes Spent Total Time Spent with Patient: Total time spent is greater than 50% in coordination of care (as documented) at patient's floor/unit and/or counseling patient: Coding Level of Care Code 03918 Subseq Hosp Care Lvl 2 Diagnoses Acute hyponatremia E87.1 Abdominal abscess COVID-19 U07.1 Crohns disease K50.90 Digestive disease complication type: without complication Gastrointestinal tract location: unspecified location CAD (coronary artery disease) I25.10 Depression F32.9 Depression Type: major depressive disorder Major depression recurrence: unspecified whether recurrent Active/Remission status: remission status unspecified DVT prophylaxis Z29.9 (1) Crohns disease Digestive disease complication type: without complication Gastrointestinal tract location: unspecified location Qualified Code(s): K50.90 - Crohn's disease, unspecified, without complications (2) Depression Depression Type: major depressive disorder Major depression recurrence: unspecified whether recurrent Active/Remission status: remission status unspecified Qualified Code(s): F32.9 - Major depressive disorder, single episode, unspecified
[2021-03-21] MEDS: METOPROLOL SUCC 25MG EXT REL TAB PO SCH (20:03)
[2021-03-21] MEDS: ALPRAZolam 0.25 MG TABLET PO PRN (21:52)
[2021-03-22] MEDS: HEPARIN SOD 5,000 UNIT/0.5 ML VIAL SQ SCH (05:17)
[2021-03-22 06:57] LABS: Hematocrit (blood only) 30.7 % (37-47); Hemoglobin 9.8 g/dL (12.0-16.0); Mean Corpuscular Hemoglobin 26.1 pg (25-34); Mean Corpuscular Hgb Conc 31.9 g/dL (32-36); Mean Corpuscular Volume 81.9 fL (80-100); Mean Platelet Volume 9.2 fL (7.4-10.4); Platelet Count 428 K/uL (130-400); RDW Coefficient of Variation 16.9 % (11.5-14.5); RDW Standard Deviation 50.3 fL (36.4-46.3); Red Blood Count 3.75 M/uL (4.2-5.4); White Blood Count 3.34 K/uL (4.8-10.8)
[2021-03-22 07:45] LABS: Albumin Globulin Ratio 0.6 (0.9-2); Albumin Level 2.4 gm/dl (3.4-5.0); BUN Creatinine Ratio 17.3 (10-20); Bilirubin,Total 0.2 mg/dl (0.2-1); Calcium 9.2 mg/dl (8.5-10.1); Creatinine Clr Calc Pharmacy 67.4 ml/min; Est GFR (African American) 111.6 ml/min; Est GFR (Non-African American) 96.3 ml/min; Globulin 4.2 gm/dl (2.5-4.0); Magnesium 1.9 mg/dl (1.8-2.4); Potassium 3.6 mmol/L (3.5-5.1); Total Protein 6.6 gm/dl (6.4-8.2)
[2021-03-22] MEDS: MULTIVITAMIN TAB PO SCH (08:16)
[2021-03-22] MEDS: FLUCONAZOLE 100 MG TAB PO SCH (08:16)
[2021-03-22] MEDS: VENLAFAXINE HCL XR 150 MG CAPXR PO SCH (08:16)
[2021-03-22] MEDS: PRIMIDONE 50 MG TAB PO SCH (08:16)
[2021-03-22] MEDS: AMOXICILLIN/CLAVULANATE 875 MG TAB PO SCH (08:16)
[2021-03-22] MEDS: MAGNESIUM OXIDE 400 MG TAB PO SCH (08:16)
[2021-03-22] MEDS: ASPIRIN 81 MG ECTAB PO SCH (08:17)
[2021-03-22] MEDS: PRAVASTATIN SOD 40 MG TAB PO SCH (08:17)
[2021-03-22] MEDS: PANTOprazole 40 MG TAB PO SCH (08:17)
--- NOTE | 2021-03-22 16:28 | Discharge Summary ---
Date of Service March 22, 2021 Admission HPI Per Admitting Provider This is a 70-year-old female with past mental history of Crohn's disease, status post ileostomy in the distant past with more recent presentation with abdominal abscess that presents today complaining of lower extremity weakness. Patient is pleasant good historian. Patient had presented to the emergency room on 03/09 with low back pain and questionable sepsis. She was found to have intra-abdominal abscess. She was transported emergently to [facility] where she had a drain placed into the abscess. Patient tells me she was discharged from their facility on 03/12. Not long after she returned home she found she was having some worsening weakness. This is mostly in the lower extremities to the point she was having difficulty ambulating. She denies any significant abdominal pain but she does c omplain of some nausea. She tells me she is tolerating food and liquids without difficulty and has not had any vomiting. However, symptoms became worse which eventually prompted her to come to the emergency room for further evaluation. In the emergency room, she was found to be hyponatremic with a sodium of 122. Also of note, she tested positive for Covid. She thinks she may have been exposed to someone over the past week. She is denying any shortness of breath, fevers, rigors, chills, or other infectious symptoms that may be related. She is also denying losing any sense of taste or smell. Principal Diagnosis Hyponatremia Covid-19 Discharge Exam Constitutional WD/WN, vitals as above Eyes EOM intact bilaterally; no conjunctival abnormality ENMT external ear and nose normal, oropharynx normal Neck trachea midline, no thyromegaly normal visual inspection Respiratory normal respiratory effort, lungs clear to auscultation no respiratory distress Cardiovascular RRR, no murmur, no edema Gastrointestinal (Abdomen) Inspection/Auscultation: normal bowel sounds and + abdominal surgical drain present (Right side); + abdomen abnormal to inspection (Colostomy bag noted) and abdomen not distended Musculoskeletal no cyanosis or clubbing, extremities motor strength 5/5 Skin no rashes, warm and dry Neurologic moves all extremities and awake Psychiatric Orientation: alert, oriented to person and cooperative Discharge Data Allergies Allergy/AdvReac Type Severity Reaction Status Date / Time No Known Allergies Allergy Verified 03/19/21 14:28 Consultations 03/19/21 16:04 ED Decision to Admit Stat 03/20/21 13:24 Consult Wound Care Provider Routine Ordered Studies 03/19/21 10:18 CT abd pelvis IV con only Stat CT angio chest PE protocol Stat Hospital Course (1) Acute hyponatremia: Patient is hyponatremic, may be somewhat hypovolemic. Patient does report she drinks "a lot" of water, so probably some element of dilutional effect. - Stopped normal saline on 03/21. - Urine osms on 03/21 indicated some element of SIADH as well. - Na is 133 on discharge. Discussed free water restriction and going with more Boost/Ensure drinks. Patient will do this. (2) Abdominal abscess: Prior infection that was treated at [place]. Drain appears to be functioning normally. CT a/p on 03/19 shows the drain in place and infection resolving. - Continue Augmentin per [place] team (3) COVID-19: At this point patient is not hypoxic and does not seem to be having any significant symptoms. May have had slight hepatitis from this. - Hold treatment for now, monitor expectantly. - Continue airborne precautions (4) Crohns disease: Patient does have a history of an ileostomy. Per prior notes, has failed 3 biologics. - No acute abdominal pain; no acute issues. (5) CAD (coronary artery disease): No chest pain to indicate acute ischemia. - Continue home ASA, metoprolol, statin (6) Depression: - Continue venlafaxine (7) DVT prophylaxis: Heparin 5,000 units SQ Q8h Total Time Total Time Spent Total Time Spent (In Minutes): 35 Discharge Plan Discharge Items Patient Disposition: Home - Home Health Services Reason For Visit: WEAKNESS Discharge Diagnosis: Low sodium Covid-19 Activity: Resume your previous activity Non-emergency contact: Primary Care Provider Call non-emergency contact if: your symptoms worsen Follow-up/Referrals: Agus Manzano MD [Primary Care Provider] - Diet: Heart Healthy Addtl Attending Provider Instructions: Ms. Ansari, You were admitted to the hospital with weakness and shaking legs. We think this was caused by two issues: 1) Low sodium 2) Covid-19 People can get low sodium if they have trouble concentrating their urine and drinking too much water. Your labs indicate that if you drink too much straight water, it could lower your sodium. I would encourage you to limit your drinking to about 6 - 7 cups of water per day. If you are still feeling thirsty, try some drinks like Ensure or Boost. These drinks will help your body continue to stay strong as they have good proteins and fats in them. This also helps your kidney keep up with the water you drink and will help keep your sodium up. Given your Crohn's disease, I think trying to drink more of these nutritious drinks will help you stay healthy. We also found that you have Covid-19. Covid-19 has been a mysterious disease where every person can be differently effected. Many people have cough, shortness of breath, and fevers, but I have seen many others with diarrhea, confusion, liver issues, or weakness. I think that Covid-19 may be playing a role in your weakness, and it seems to have affected your liver slightly (though this is improving). Please consider getting the vaccine when you have recovered. It has been used in millions of people with very few serious side effects. There is no indication that there are long-term side effects to worry about. We do think people can get re-infected with Covid after some months, so just because you have had Covid once doesn't guarantee you can't get it a second time. Apart from these issues, you are doing well. Your abdominal infection is healing and the drain should be managed by your team at [place]. Pending Studies at Discharge: No Stand-Alone Forms: My [facility], Smoking Cessation Medications and DC Order Prescriptions: Continued venlafaxine [Effexor XR] 150 mg capsule,extended release 24hr 150 mg PO QAM RF: 0 alprazolam [Xanax] 0.25 mg tablet 0.25 - 0.5 mg PO TID PRN (Reason: Anxiety) RF: 0 metoprolol succinate [Toprol XL] 50 mg tablet extended release 24 hr 25 mg PO HS RF: 0 aspirin [Aspirin Low Dose] 81 mg Tablet,Delayed Release (Dr/Ec) 81 mg PO QAM RF: 0 magnesium oxide [MagOx] 400 mg (241.3 mg magnesium) tablet 400 mg PO BID RF: 0 Multivitamin 50 Plus Tablet 1 tab PO BID RF: 0 fluconazole [Diflucan] 200 mg tablet 200 mg PO QAM RF: 0 omeprazole 20 mg capsule,delayed release(DR/EC) 20 mg PO QAM RF: 0 amoxicillin-pot clavulanate [Augmentin] 875-125 mg tablet 1 tab PO BID RF: 0 pravastatin 80 mg tablet 80 mg PO QAM RF: 0 primidone [Mysoline] 50 mg tablet 100 mg PO BID RF: 0 Discharge Orders: Discharge Order (Routine); Ordered 03/22/21 Ordered By: uRsty Velasquez Admission Data Admit Date/Time: 03/19/21 17:49 Attending Provider: Rusty Velasquez Admit Provider: Bernardino Sue Primary Care Provider: Agus Manzano Other Providers: Rusty Velasquez Other Interventions: Discharge Summary Assessment (RN) Last Done: 03/22/21 10:38 Coding Level of Care Code D/C DAY MANAGEMENT >30 MINS Diagnoses Acute hyponatremia E87.1 Abdominal abscess COVID-19 U07.1 Crohns disease K50.90 Digestive disease complication type: without complication Gastrointestinal tract location: unspecified location CAD (coronary artery disease) I25.10 Depression F32.9 Depression Type: major depressive disorder Major depression recurrence: unspecified whether recurrent Active/Remission status: remission status unspecified DVT prophylaxis Z29.9
== END 2021-03-22 11:40 | disposition home health service (06) | DRG 640 ==
LOC: ED 09:49 → 2E 17:49 → SUATTDRO 17:49 → 2E 18:39
DX: Z82.49 Family history of ischemic heart disease and other diseases of the circulatory system; I25.10 Atherosclerotic heart disease of native coronary artery without angina pectoris; K50.90 Crohn's disease, unspecified, without complications; U07.1 COVID-19; E87.5 Hyperkalemia; E87.1 Hypo-osmolality and hyponatremia; I10 Essential (primary) hypertension; K65.1 Peritoneal abscess; F32.9 Major depressive disorder, single episode, unspecified; E78.00 Pure hypercholesterolemia, unspecified; Z80.9 Family history of malignant neoplasm, unspecified; Z79.82 Long term (current) use of aspirin; Z87.891 Personal history of nicotine dependence; E78.5 Hyperlipidemia, unspecified

== ENCOUNTER 2023-08-16 20:47 | Inpatient (IN) ==
[2023-08-16] MEDS ORDERED: SODIUM CHLORIDE 0.9% 1,000 ML IV STA (21:26)
[2023-08-16] MEDS ORDERED: ONDANSETRON INJ 2 MG/ML 2 ML VIAL IV STA (21:26)
[2023-08-16] MEDS ORDERED: MoRPHine SULFATE 2 MG/ML CARP IV STA (21:36)
[2023-08-16] MEDS ORDERED: HYDROmorphone INJ 0.5 MG/0.5 ML SYR IV STA (21:37)
[2023-08-16 21:43] LABS: Hematocrit (blood only) 45.6 % (37.0-47.0); Hemoglobin 15.6 g/dl (12.0-16.0); Mean Corpuscular Hemoglobin 31.2 pg (25.0-34.0); Mean Corpuscular Hgb Conc 34.2 g/dL (32.0-36.0); Mean Corpuscular Volume 91.2 fL (80.0-100.0); Mean Platelet Volume 9.7 fL (9.4-12.4); Platelet Count 324 K/uL (130-400); RDW Coefficient of Variation 13.3 % (11.5-14.5); RDW Standard Deviation 44.7 fL (36.4-46.3); White Blood Count 12.81 K/ul (4.8-10.8)
[2023-08-16 21:50] LABS: Alanine Aminotransferase 14 U/L (7-52); Albumin Globulin Ratio 1.6 (0.9-2); Alkaline Phosphatase 111 U/L (34-104); Anion Gap 12 (3-11); Aspartate Aminotransferase 19 U/L (13-39); BUN Creatinine Ratio 18.9 (10-20); Bilirubin,Total 0.4 mg/dl (0.2-1.0); Blood Urea Nitrogen 18 mg/dl (6-23); Calcium 10.4 mg/dl (8.6-10.3); Carbon Dioxide 28 mmol/L (21-32); Chloride 97 mmol/L (98-107); Est GFR (African American) 69.8 ml/min; Est GFR (Non-African American) 60.3 ml/min; Globulin 3.2 gm/dl (2.5-4.0); Glucose 137 mg/dl (70-99(Fasting)); Lipase 32 U/L (11-82); Potassium 3.8 mmol/L (3.5-5.1); Sodium 137 mmol/L (136-145); Total Protein 8.2 gm/dl (6.0-8.3)
[2023-08-16] MEDS ORDERED: HYDROmorphone INJ 0.5 MG/0.5 ML SYR IV PRN (22:45)
[2023-08-16] MEDS ORDERED: OPTIRAY 320 500ml IV ONE (23:18)
--- NOTE | 2023-08-17 | CT Scan Report ---
Exam(s): CT ABDOMEN + PELVIS With Contrast IV Amt: 87 ML OPTIRAY 320 EXAM: CT Abdomen and Pelvis With Intravenous Contrast CLINICAL HISTORY: Reason for exam: SBO, Crohns. TECHNIQUE: Axial computed tomography images of the abdomen and pelvis with intravenous contrast. CTDI is 6.4 mGy and DLP is 248.66 mGy-cm. Automated exposure control was utilized for the study. A dose lowering technique was utilized adhering to the principles of ALARA. CONTRAST: Patient received 87 ML OPTIRAY 320 of IV contrast COMPARISON: No relevant prior studies available. FINDINGS: Lung bases: COPD. No consolidation. Mediastinum: Small hiatal hernia. ABDOMEN: Liver: Unremarkable. No mass. Gallbladder and bile ducts: Cholecystectomy. No ductal dilation. Pancreas: Unremarkable. No mass. No ductal dilation. Spleen: Unremarkable. No splenomegaly. Adrenals: Unremarkable. No mass. Kidneys and ureters: Unremarkable. No hydronephrosis or delayed nephrogram. Stomach and bowel: Dilated small bowel measuring up to 4.1 cm, with fecal retention. Findings are consistent with small bowel obstruction in the pelvis. The area of transition is likely in the RIGHT lower quadrant. Surgical evaluation recommended. No mucosal thickening. PELVIS: Appendix: No findings to suggest acute appendicitis. Bladder: Unremarkable. No mass. Reproductive: Unremarkable as visualized. ABDOMEN and PELVIS: Intraperitoneal space: Unremarkable. No free air. No significant fluid collection. Bones/joints: Degenerative changes of the spine. No acute fracture. No dislocation. Soft tissues: Unremarkable. Vasculature: Atherosclerotic changes of the aorta. No abdominal aortic aneurysm. Lymph nodes: Unremarkable. No enlarged lymph nodes. IMPRESSION: Dilated small bowel measuring up to 4.1 cm, with fecal retention. Findings are consistent with small bowel obstruction in the pelvis. The area of transition is likely in the RIGHT lower quadrant. Surgical evaluation recommended. Electronically signed by: Enoch Azevedo MD 08/16/23 23:58 PM
--- NOTE | 2023-08-17 00:36 | Emergency Department Note ---
Impression & Plan Small bowel obstruction, Crohns disease ED Provider Note CHIEF COMPLAINT: Abdominal pain, vomiting HISTORY OF PRESENT ILLNESS: This 72-year-old female patient past medical history of Crohn's disease, ileostomy with secondary reversal, hypertension, CAD, anxiety, cigarette smoking presents to the emergency department with complaints of abdominal bloating, vomiting and diarrhea x 1. Patient states she began to feel nauseated and crampy in the abdomen. She did have 1 episode of diarrhea. The patient proceeded to go downstairs and became nauseated, vomiting x 1. Her daughter gave her some Zofran, but is not able to control the pain. She complains of most discomfort in the right upper quadrant. Patient states she still has her gallbladder. REVIEW OF SYSTEMS: A review of systems was performed with positives and pertinent negatives listed in the history of present illness. 10 systems were reviewed and are otherwise negative. ALLERGIES: see below MEDICATIONS: see below PMH: see below SOCIAL HISTORY: see below DDx: Dehydration, viral etiology, UTI, bowel obstruction, kidney stone, cholecystitis among others PHYSICAL EXAM: Vital signs reviewed. General: Well-appearing 72 yo female, in no significant distress. HEENT: No scleral icterus, PERRLA, neck supple. Atraumatic. Cardiovascular: Regular rate and rhythm, no extra sounds. Pulmonary: Clear to auscultation bilaterally, normal work of breathing. Abdomen: Soft, mild diffuse abdominal tenderness, positive tympany to percussion. Musculoskeletal: Atraumatic, no peripheral edema. Neurologic: Patient awake alert and oriented x 3, speech is clear Skin: Warm, dry, no rash EMERGENCY DEPARTMENT COURSE/MDM: This patient was evaluated and appeared to be in some discomfort. IV access was obtained and laboratory work was drawn. Patient was placed on the cardiac cath rn and noted to be in a normal sinus rhythm. IV hydration was initiated. The patient was given IV Dilaudid and Zofran for pain and nausea control. CT imaging of the abdomen pelvis was performed and reveals evidence of a small bowel obstruction. NG tube was placed and the hospitalist service was consulted. Patient and daughter were informed of the findings and plan and agreed. MONITORING: An order for cardiac monitoring was placed and the patient is noted to be in a normal sinus rhythm at 70 beats per minute. RADIOLOGY: CT imaging of the abdomen and pelvis to my interpretation and per radiology reveals evidence of a small bowel obstruction. Please see final read below. DISPOSITION: Admission Past Med/Surg History Medical History (Updated 08/23/23 @ 08:53 by Lakeisha Dhillon MD) Symptomatic PVCs Osteoporosis Crohn's colitis Non-healing open wound of toe Failure of rotator cuff repair Tobacco abuse Hypokalemia HTN (hypertension) Crohns disease CAD (coronary artery disease) 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, [facility]: Rojas to LAD, SARIKA to RCA, saphenous vein graft to ramus intermedius, saphenous vein graft to om 2 Left shoulder pain Diarrhea Hypercholesterolemia Surgical History H/O ileostomy History of coronary artery bypass graft Family History Sister Breast cancer Colorectal cancer Mother Colorectal cancer Anxiety Myocardial infarction Father Myocardial infarction Other Cancer Heart disease Hypertension Denies family history of Ovarian cancer Social History Smoking Status: Current every day smoker Tobacco Type: Cigarettes Cigarettes Per Day: 10; Second Hand Exposure: No; Do You Dip or Chew Tobacco: No; Hx Alcohol Use: Yes Alcohol type: beer and wine Hx Substance Use: No Preferred Language: Danish Communication Ability: Effective Financial Manager Required: No Beliefs That Will Affect Care: None marital status: / Current Living Situation: Alone and Family Current Living Situation Comment: Has been Ill and is staying with daughter current occupational status: retired Feels Safe at Home: Yes Childhood Exposure to Second-Hand Smoke: No Diet: regular caffeine: Yes Dental Care, Regularly: Yes Physical Activity Frequency: 3-4 Times per Week Seatbelt Use: always Sunscreen Use: Yes Assistive Devices: Walker and Wheelchair Allergies Allergies Allergy/AdvReac Type Severity Reaction Status Date / Time No Known Allergies Allergy Verified 07/02/23 08:32 Home Meds Home Medications Medication Instructions Recorded Confirmed acetaminophen 500 mg tablet 1,000 mg PO Q6H PRN Pain 04/19/22 08/17/23 (Tylenol Extra Strength) omeprazole 20 mg capsule,delayed 20 mg PO DAILY 12/31/22 08/17/23 release primidone 50 mg tablet (Mysoline) 250 mg PO BID 08/17/23 08/17/23 Previous Rx's Medication Instructions Recorded mirtazapine 7.5 mg tablet 7.5 mg PO HS #30 tabs 12/31/22 escitalopram oxalate 20 mg tablet 20 mg PO DAILY #90 tabs 03/30/23 (Lexapro) teriparatide 20 mcg/dose (600 20 mcg (0.08 mL) subcut DAILY #2.4 05/12/23 mcg/2.4 mL) subcutaneous pen mL injector (Forteo) amiodarone 200 mg tablet 200 mg PO DAILY #90 tabs 06/04/23 metoprolol succinate 25 mg 25 mg PO DAILY #90 tabs 06/04/23 tablet,extended release 24 hr clonazepam 0.5 mg tablet 0.25 mg (1/2 x 0.5 mg) PO BID PRN 07/28/23 anxiety #30 tabs simvastatin 20 mg tablet 20 mg PO DAILY #90 tabs 07/28/23 nicotine 21 mg/24 hr daily 21 mg transdermal QAM #1 ea 08/20/23 transdermal patch (Nicoderm CQ) Results & Data (ED) Vital Signs Vital Signs - 24 hr 08/16/23 20:50 08/16/23 21:07 08/16/23 21:07 Temperature 37.3 C Temperature Source Temporal Artery Scan Pulse Rate 83 69 Pulse Rate from SpO2 Sensor Respiratory Rate 18 Respiratory Effort / Characteristics Non-Labored Spontaneous Respiratory Depth Normal Respiratory Pattern Regular Blood Pressure 143/69 H 149/60 H Blood Pressure Mean 93 81 Blood Pressure Position Sitting Pulse Oximetry 98 Oxygen Delivery Method Room Air Oxygen Flow Rate Sepsis Recent Fever Within 48 Hours No Sepsis New/Unexplained Change in Mental Status N/A Sepsis Action Taken by Nursing No Action Required 08/16/23 21:07 08/16/23 21:10 08/16/23 21:20 Temperature Temperature Source Pulse Rate 70 66 70 Pulse Rate from SpO2 Sensor Respiratory Rate 21 20 Respiratory Effort / Characteristics Respiratory Depth Respiratory Pattern Blood Pressure Blood Pressure Mean Blood Pressure Position Pulse Oximetry Oxygen Delivery Method Oxygen Flow Rate Sepsis Recent Fever Within 48 Hours Sepsis New/Unexplained Change in Mental Status Sepsis Action Taken by Nursing 08/16/23 21:30 08/16/23 21:31 08/16/23 21:31 Temperature Temperature Source Pulse Rate 72 70 Pulse Rate from SpO2 Sensor Respiratory Rate 21 22 Respiratory Effort / Characteristics Respiratory Depth Respiratory Pattern Blood Pressure 140/53 L Blood Pressure Mean 70 Blood Pressure Position Pulse Oximetry Oxygen Delivery Method Oxygen Flow Rate Sepsis Recent Fever Within 48 Hours Sepsis New/Unexplained Change in Mental Status Sepsis Action Taken by Nursing 08/16/23 21:32 08/16/23 21:40 08/16/23 21:50 Temperature Temperature Source Pulse Rate 71 66 Pulse Rate from SpO2 Sensor Respiratory Rate 19 24 Respiratory Effort / Characteristics Respiratory Depth Respiratory Pattern Blood Pressure Blood Pressure Mean Blood Pressure Position Pulse Oximetry 95 Oxygen Delivery Method Room Air Oxygen Flow Rate Sepsis Recent Fever Within 48 Hours Sepsis New/Unexplained Change in Mental Status Sepsis Action Taken by Nursing 08/16/23 22:00 08/16/23 22:00 08/16/23 22:10 Temperature Temperature Source Pulse Rate 71 67 Pulse Rate from SpO2 Sensor 71 67 Respiratory Rate 19 Respiratory Effort / Characteristics Respiratory Depth Respiratory Pattern Blood Pressure 141/62 H Blood Pressure Mean 97 Blood Pressure Position Pulse Oximetry 91 97 Oxygen Delivery Method Oxygen Flow Rate Sepsis Recent Fever Within 48 Hours Sepsis New/Unexplained Change in Mental Status Sepsis Action Taken by Nursing 08/16/23 22:20 08/16/23 22:30 08/16/23 22:30 Temperature Temperature Source Pulse Rate 57 L 66 Pulse Rate from SpO2 Sensor 57 L 65 Respiratory Rate 15 24 Respiratory Effort / Characteristics Respiratory Depth Respiratory Pattern Blood Pressure 121/59 L Blood Pressure Mean 79 Blood Pressure Position Pulse Oximetry 98 98 Oxygen Delivery Method Oxygen Flow Rate Sepsis Recent Fever Within 48 Hours Sepsis New/Unexplained Change in Mental Status Sepsis Action Taken by Nursing 08/16/23 22:40 08/16/23 23:00 08/16/23 23:25 Temperature Temperature Source Pulse Rate 70 69 73 Pulse Rate from SpO2 Sensor 69 Respiratory Rate 21 16 19 Respiratory Effort / Characteristics Respiratory Depth Respiratory Pattern Blood Pressure 131/57 L 114/55 L Blood Pressure Mean 81 74 Blood Pressure Position Pulse Oximetry 98 98 93 Oxygen Delivery Method Nasal Cannula Oxygen Flow Rate 2 Sepsis Recent Fever Within 48 Hours Sepsis New/Unexplained Change in Mental Status Sepsis Action Taken by Nursing 08/16/23 23:30 08/17/23 01:07 Temperature Temperature Source Pulse Rate 65 70 Pulse Rate from SpO2 Sensor Respiratory Rate 16 Respiratory Effort / Characteristics Respiratory Depth Respiratory Pattern Blood Pressure 106/46 L Blood Pressure Mean 66 Blood Pressure Position Pulse Oximetry 92 Oxygen Delivery Method Oxygen Flow Rate Sepsis Recent Fever Within 48 Hours Sepsis New/Unexplained Change in Mental Status Sepsis Action Taken by [facility] Medications Current Medication List: was personally reviewed by me Laboratory Data Attestation: I reviewed the patient's lab results. 08/20/23 06:05 08/20/23 14:22 Lab Results 08/16/23 Range/Units 21:07 WBC 12.81 H (4.8-10.8) K/ul RBC 5.00 (4.20-5.40) M/uL Hgb 15.6 (12.0-16.0) g/dl Hct 45.6 (37.0-47.0) % MCV 91.2 (80.0-100.0) fL MCH 31.2 (25.0-34.0) pg MCHC 34.2 (32.0-36.0) g/dL RDW Std Deviation 44.7 (36.4-46.3) fL RDW Coeff of Harish 13.3 (11.5-14.5) % Plt Count 324 (130-400) K/uL MPV 9.7 (9.4-12.4) fL Sodium 137 (136-145) mmol/L Potassium 3.8 (3.5-5.1) mmol/L Chloride 97 L (98-107) mmol/L Carbon Dioxide 28 (21-32) mmol/L Anion Gap 12 H (3-11) BUN 18 (6-23) mg/dl Creatinine 0.95 (0.6-1.2) mg/dl Est Cr Clr Drug Dosing Not Reportable Est GFR ( Amer) 69.8 ml/min Est GFR (Non-Af Amer) 60.3 ml/min BUN/Creatinine Ratio 18.9 (10-20) Glucose 137 H (70-99(Fasting)) mg/dl Calcium 10.4 H (8.6-10.3) mg/dl Total Bilirubin 0.4 (0.2-1.0) mg/dl AST 19 (13-39) U/L ALT 14 (7-52) U/L Alkaline Phosphatase 111 H (34-104) U/L Total Protein 8.2 (6.0-8.3) gm/dl Albumin 5.0 (3.4-5.0) gm/dl Globulin 3.2 (2.5-4.0) gm/dl Albumin/Globulin Ratio 1.6 (0.9-2) Lipase 32 (11-82) U/L Administered Medications Discontinued Medications Amiodarone HCl (Amiodarone 200 Mg Tab) 200 mg PO DAILY PRASHANT Stop: 09/16/23 08:59 Last Admin: 08/18/23 11:21 Dose: 200 mg Documented By: Admin: 08/17/23 08:00 Dose: Not Given Documented By: MEGAN Enoxaparin Sodium (Enoxaparin Inj 40 Mg/0.4 Ml Syr) 40 mg SQ QAM PRASHANT Stop: 09/17/23 08:59 Last Admin: 08/20/23 09:06 Dose: 40 mg Documented By: Admin: 08/19/23 08:32 Dose: 40 mg Documented By: Admin: 08/18/23 08:32 Dose: 40 mg Documented By: ISMA Hydromorphone HCl (Hydromorphone Inj 0.5 Mg/0.5 Ml Syr) 0.5 mg IV NOW STA Stop: 08/16/23 21:38 Last Admin: 08/16/23 21:52 Dose: 0.5 mg Documented By: GERSON Hydromorphone HCl (Hydromorphone Inj 0.5 Mg/0.5 Ml Syr) 0.5 mg IV Q1H PRN PRN Reason: Pain Stop: 08/30/23 22:44 Last Admin: 08/16/23 23:03 Dose: 0.5 mg Documented By: GERSON Hydromorphone HCl (Hydromorphone Inj 1 Mg/Ml Syringe) 1 mg IV Q4H PRN PRN Reason: Pain Scale 6,7,8,9,10 Stop: 08/31/23 12:33 Last Admin: 08/19/23 15:01 Dose: 1 mg Documented By: Admin: 08/19/23 11:13 Dose: 1 mg Documented By: Admin: 08/19/23 05:58 Dose: 1 mg Documented By: Admin: 08/19/23 01:56 Dose: 1 mg Documented By: Admin: 08/18/23 22:15 Dose: 1 mg Documented By: Admin: 08/18/23 18:23 Dose: 1 mg Documented By: Admin: 08/18/23 14:25 Dose: 1 mg Documented By: Admin: 08/18/23 10:13 Dose: 1 mg Documented By: Admin: 08/18/23 06:14 Dose: 1 mg Documented By: Admin: 08/18/23 01:59 Dose: 1 mg Documented By: Admin: 08/17/23 22:02 Dose: 1 mg Documented By: Admin: 08/17/23 17:46 Dose: 1 mg Documented By: Admin: 08/17/23 13:17 Dose: 1 mg Documented By: ZACH Hydromorphone HCl (Hydromorphone Inj 1 Mg/Ml Syringe) 1 mg IV Q3H PRN PRN Reason: pain on scale of 8-10/10 Stop: 08/31/23 12:33 Last Admin: 08/20/23 20:07 Dose: 1 mg Documented By: Admin: 08/20/23 16:57 Dose: 1 mg Documented By: Admin: 08/20/23 13:47 Dose: 1 mg Documented By: Admin: 08/20/23 07:49 Dose: 1 mg Documented By: Admin: 08/20/23 00:49 Dose: 1 mg Documented By: Admin: 08/19/23 21:48 Dose: 1 mg Documented By: Admin: 08/19/23 18:30 Dose: 1 mg Documented By: MAL Sodium Chloride (Nss) 1,000 mls @ 999 mls/hr IV .Q1H1M STA Stop: 08/16/23 22:26 Last Infusion: 08/16/23 22:45 Dose: Infused Documented By: Admin: 08/16/23 21:52 Dose: 999 mls/hr Documented By: GERSON Potassium Chloride/Sodium Chloride (Normal Saline W/20 Meq Kcl) 20 meq in 1,000 mls @ 100 mls/hr IV .Q10H PRASHANT; Protocol Stop: 09/16/23 00:59 Last Infusion: 08/20/23 08:36 Dose: Infused Documented By: Admin: 08/20/23 04:47 Dose: 100 mls/hr Documented By: Infusion: 08/20/23 04:47 Dose: Infused Documented By: Admin: 08/19/23 18:50 Dose: 100 mls/hr Documented By: Infusion: 08/19/23 18:31 Dose: Infused Documented By: Admin: 08/19/23 08:31 Dose: 100 mls/hr Documented By: Infusion: 08/19/23 08:24 Dose: Infused Documented By: Admin: 08/19/23 04:43 Dose: Not Given Documented By: Infusion: 08/19/23 04:43 Dose: 100 mls/hr Documented By: Admin: 08/18/23 22:24 Dose: 100 mls/hr Documented By: Infusion: 08/18/23 22:24 Dose: Infused Documented By: Admin: 08/18/23 13:45 Dose: 100 mls/hr Documented By: Infusion: 08/18/23 12:36 Dose: Infused Documented By: Admin: 08/18/23 02:36 Dose: 100 mls/hr Documented By: Infusion: 08/18/23 01:53 Dose: Infused Documented By: Admin: 08/17/23 10:51 Dose: 100 mls/hr Documented By: Infusion: 08/17/23 10:51 Dose: Infused Documented By: Admin: 08/17/23 01:21 Dose: 100 mls/hr Documented By: LASHON Piperacillin Sod/Tazobactam (Sod 4.5 gm/ Dextrose) 100 mls @ 25 mls/hr IV Q8H PRASHANT; Protocol Stop: 08/27/23 07:59 Last Infusion: 08/17/23 12:00 Dose: Infused Documented By: Admin: 08/17/23 08:00 Dose: 25 mls/hr Documented By: MEGAN Pantoprazole Sodium 40 mg/ (Syringe) 10 mls @ 5 mls/min IV DAILY@1100 PRASHANT Stop: 09/16/23 10:59 Last Admin: 08/20/23 10:31 Dose: 5 mls/min Documented By: LILLIAM Co-signed By: MATI Admin: 08/19/23 12:42 Dose: 5 mls/min Documented By: Admin: 08/18/23 12:28 Dose: 5 mls/min Documented By: Admin: 08/17/23 10:51 Dose: 5 mls/min Documented By: MEGAN Pantoprazole Sodium 40 mg/ (Syringe) 10 mls @ 5 mls/min IV NOW ONE Stop: 08/17/23 01:16 Last Admin: 08/17/23 01:24 Dose: 5 mls/min Documented By: LASHON Piperacillin Sod/Tazobactam Sod (Zosyn) 4.5 gm in 100 mls @ 200 mls/hr IV NOW STA; Protocol Stop: 08/17/23 01:33 Last Infusion: 08/17/23 03:55 Dose: Infused Documented By: Admin: 08/17/23 01:24 Dose: 200 mls/hr Documented By: LASHON Acetaminophen 550 mg/ EMPTY (BAG) 55 mls @ 220 mls/hr IV Q8H PRN PRN Reason: pain or fever Stop: 09/16/23 04:15 Last Infusion: 08/18/23 13:08 Dose: Infused Documented By: Admin: 08/18/23 12:28 Dose: 220 mls/hr Documented By: Infusion: 08/17/23 11:06 Dose: Infused Documented By: Admin: 08/17/23 10:51 Dose: 220 mls/hr Documented By: MEGAN Magnesium Sulfate/Dextrose (Magnesium Sulfate / D5w) 1 gm in 100 mls @ 50 mls/hr IV Q2H PRASHANT Stop: 08/18/23 12:14 Last Infusion: 08/18/23 16:07 Dose: Infused Documented By: Admin: 08/18/23 12:28 Dose: 50 mls/hr Documented By: Infusion: 08/18/23 10:31 Dose: Infused Documented By: Admin: 08/18/23 08:31 Dose: 50 mls/hr Documented By: ISMA Acetaminophen 550 mg/ EMPTY (BAG) 55 mls @ 220 mls/hr IV Q6H PRN PRN Reason: pain or fever Stop: 09/17/23 19:12 Last Infusion: 08/18/23 19:40 Dose: Infused Documented By: Admin: 08/18/23 19:22 Dose: 220 mls/hr Documented By: HANNA Piperacillin Sod/Tazobactam (Sod 4.5 gm/ Dextrose) 100 mls @ 25 mls/hr IV Q8H PRASHANT; Protocol Stop: 08/23/23 01:59 Last Admin: 08/20/23 18:39 Dose: 25 mls/hr Documented By: Infusion: 08/20/23 14:35 Dose: Infused Documented By: Admin: 08/20/23 10:31 Dose: 25 mls/hr Documented By: LILLIAM Co-signed By: AC Infusion: 08/20/23 04:55 Dose: Infused Documented By: Admin: 08/20/23 00:51 Dose: 25 mls/hr Documented By: Infusion: 08/19/23 22:46 Dose: Infused Documented By: Admin: 08/19/23 18:46 Dose: 25 mls/hr Documented By: Infusion: 08/19/23 14:01 Dose: Infused Documented By: Admin: 08/19/23 09:48 Dose: 25 mls/hr Documented By: Infusion: 08/19/23 06:02 Dose: Infused Documented By: Admin: 08/19/23 01:56 Dose: 25 mls/hr Documented By: HANNA Piperacillin Sod/Tazobactam (Sod 4.5 gm/ Dextrose) 100 mls @ 200 mls/hr IV NOW ONE; Protocol Stop: 08/18/23 21:14 Last Infusion: 08/18/23 22:22 Dose: Infused Documented By: Admin: 08/18/23 21:44 Dose: 200 mls/hr Documented By: HANNA Famotidine 20 mg/ Syringe 5 mls @ 2.5 mls/min IV NOW STA Stop: 08/19/23 05:52 Last Admin: 08/19/23 06:01 Dose: 2.5 mls/min Documented By: HANNA Lactated Ringer's (Lr) 1,000 mls @ 100 mls/hr IV .Q10H PRASHANT Stop: 09/19/23 08:14 Last Admin: 08/20/23 18:59 Dose: Not Given Documented By: Infusion: 08/20/23 18:56 Dose: Infused Documented By: Admin: 08/20/23 08:27 Dose: 100 mls/hr Documented By: MAL Famotidine 20 mg/ Syringe 5 mls @ 2.5 mls/min IV NOW ONE Stop: 08/20/23 12:49 Last Admin: 08/20/23 14:14 Dose: 2.5 mls/min Documented By: MAL Ioversol (Optiray 320 500ml) 100 ml IV ONCE ONE Stop: 08/16/23 23:19 Last Admin: 08/16/23 23:19 Dose: 87 ml Documented By: SERG Ketorolac Tromethamine (Ketorolac Tromethamine 15 Mg/Ml Vial) 15 mg IV Q6H PRN PRN Reason: Moderate Pain (Scale 4, 5, 6) Last Admin: 08/18/23 04:12 Dose: 15 mg Documented By: Admin: 08/17/23 20:10 Dose: 15 mg Documented By: Admin: 08/17/23 11:53 Dose: 15 mg Documented By: Admin: 08/17/23 06:13 Dose: 15 mg Documented By: LASHON Ketorolac Tromethamine (Ketorolac Tromethamine 15 Mg/Ml Vial) 15 mg IV NOW ONE Stop: 08/20/23 02:57 Last Admin: 08/20/23 03:03 Dose: 15 mg Documented By: ELADIO Ketorolac Tromethamine (Ketorolac Tromethamine 15 Mg/Ml Vial) 15 mg IV NOW ONE Stop: 08/20/23 08:10 Last Admin: 08/20/23 09:07 Dose: 15 mg Documented By: MLA Lorazepam (Lorazepam 0.5 Mg Tab) 0.5 mg SL QID PRASHANT Stop: 09/17/23 16:59 Last Admin: 08/20/23 16:55 Dose: 0.5 mg Documented By: Admin: 08/20/23 13:47 Dose: 0.5 mg Documented By: Admin: 08/20/23 09:06 Dose: 0.5 mg Documented By: Admin: 08/19/23 20:29 Dose: 0.5 mg Documented By: Admin: 08/19/23 16:53 Dose: 0.5 mg Documented By: Admin: 08/19/23 12:49 Dose: 0.5 mg Documented By: Admin: 08/19/23 09:47 Dose: 0.5 mg Documented By: Admin: 08/18/23 20:53 Dose: 0.5 mg Documented By: Admin: 08/18/23 16:06 Dose: 0.5 mg Documented By: ISMA Morphine Sulfate (Morphine Sulfate 2 Mg/Ml Carp) 2 mg IV NOW STA Stop: 08/16/23 21:37 Last Admin: 08/16/23 21:52 Dose: Not Given Documented By: BCN Morphine Sulfate (Morphine Sulfate 2 Mg/Ml Carp) 2 mg IV Q3H PRN PRN Reason: Severe Pain (Scale 7, 8, 9,10) Stop: 08/31/23 01:01 Last Admin: 08/17/23 08:57 Dose: 2 mg Documented By: Admin: 08/17/23 04:36 Dose: 2 mg Documented By: Admin: 08/17/23 01:27 Dose: 2 mg Documented By: LASHON Nicotine (Nicotine 21 Mg/24 Hr Tdsy) 21 mg TD QAM PRASHANT Stop: 09/19/23 12:59 Last Admin: 08/20/23 14:12 Dose: 21 mg Documented By: MAL Ondansetron HCl (Ondansetron Inj 2 Mg/Ml 2 Ml Vial) 4 mg IV NOW STA Stop: 08/16/23 21:27 Last Admin: 08/16/23 21:52 Dose: 4 mg Documented By: GERSON Ondansetron HCl (Ondansetron Inj 2 Mg/Ml 2 Ml Vial) 4 mg IV Q6H PRN PRN Reason: Nausea Stop: 09/16/23 16:00 Last Admin: 08/20/23 16:55 Dose: 4 mg Documented By: Admin: 08/19/23 18:33 Dose: 4 mg Documented By: Admin: 08/19/23 00:30 Dose: 4 mg Documented By: Admin: 08/18/23 13:25 Dose: 4 mg Documented By: Admin: 08/17/23 16:37 Dose: 4 mg Documented By: RIVAS Primidone (Primidone 50 Mg Tab) 200 mg PO BID [facility] Stop: 09/16/23 08:59 Last Admin: 08/18/23 08:31 Dose: 200 mg Documented By: Admin: 08/17/23 20:03 Dose: 200 mg Documented By: Admin: 08/17/23 08:01 Dose: Not Given Documented By: MEGAN Imaging Data Radiologist's Impression: Abdomen/Pelvis CT 08/16/23 22:41 Exam(s): CT ABDOMEN + PELVIS With Contrast IV Amt: 87 ML OPTIRAY 320 EXAM: CT Abdomen and Pelvis With Intravenous Contrast CLINICAL HISTORY: Reason for exam: SBO, Crohns. TECHNIQUE: Axial computed tomography images of the abdomen and pelvis with intravenous contrast. CTDI is 6.4 mGy and DLP is 248.66 mGy-cm. Automated exposure control was utilized for the study. A dose lowering technique was utilized adhering to the principles of ALARA. CONTRAST: Patient received 87 ML OPTIRAY 320 of IV contrast COMPARISON: No relevant prior studies available. FINDINGS: Lung bases: COPD. No consolidation. Mediastinum: Small hiatal hernia. ABDOMEN: Liver: Unremarkable. No mass. Gallbladder and bile ducts: Cholecystectomy. No ductal dilation. Pancreas: Unremarkable. No mass. No ductal dilation. Spleen: Unremarkable. No splenomegaly. Adrenals: Unremarkable. No mass. Kidneys and ureters: Unremarkable. No hydronephrosis or delayed nephrogram. Stomach and bowel: Dilated small bowel measuring up to 4.1 cm, with fecal retention. Findings are consistent with small bowel obstruction in the pelvis. The area of transition is likely in the RIGHT lower quadrant. Surgical evaluation recommended. No mucosal thickening. PELVIS: Appendix: No findings to suggest acute appendicitis. Bladder: Unremarkable. No mass. Reproductive: Unremarkable as visualized. ABDOMEN and PELVIS: Intraperitoneal space: Unremarkable. No free air. No significant fluid collection. Bones/joints: Degenerative changes of the spine. No acute fracture. No dislocation. Soft tissues: Unremarkable. Vasculature: Atherosclerotic changes of the aorta. No abdominal aortic aneurysm. Lymph nodes: Unremarkable. No enlarged lymph nodes. IMPRESSION: Dilated small bowel measuring up to 4.1 cm, with fecal retention. Findings are consistent with small bowel obstruction in the pelvis. The area of transition is likely in the RIGHT lower quadrant. Surgical evaluation recommended. Electronically signed by: Enoch Azevedo MD 08/16/23 23:58 PM Discharge Plan Visit Data Chief Complaint: Abdominal Pain Stated Complaint: ABD PAIN, VOMITING ED Provider: Lakeisha Dhillon Discharge Problem: Small bowel obstruction, Crohns disease Patient Disposition: Admitted As Inpatient Discharge Instructions Interventions: ED Discharge Assessment Last Done: 08/17/23 03:28 Discharge Problem: Crohns disease Qualifiers: Gastrointestinal tract location: unspecified location Digestive disease complication type: with intestinal obstruction Qualified Code(s): K50.912 - Crohn's disease, unspecified, with intestinal obstruction
[2023-08-17] MEDS ORDERED: ACETAMINOPHEN 1,000 MG/100 ML VIAL IV PRN (00:46)
--- NOTE | 2023-08-17 00:53 | History & Physical Report ---
Date of Service August 17, 2023 Assessment & Plan (1) Small bowel obstruction: (2) Generalized anxiety disorder: (3) Hypercholesterolemia: (4) CAD (coronary artery disease): (5) Hyperlipidemia: (6) HTN (hypertension): (7) Symptomatic PVCs: (8) Tobacco abuse: (9) Essential tremor: (10) Crohns disease: Plan Small bowel obstruction/transition point right lower quadrant/history of Crohn's disease- N.p.o. except essential medications CT scan notes small bowel obstruction with transition point in right lower quadrant No suggestion of bowel wall edema No previous episodes of small bowel obstruction Patient prefers to not have NG tube Status post 1 L normal saline in the ED NSS + KCl 20 mill equivalents at 100 mL/h Acetaminophen 1 g IV every 8 hours as needed for mild pain or fever Toradol 15 mg IV every 6 hours as needed for moderate pain Morphine sulfate 2 mg IV every 3 hours as needed for severe pain Zosyn 4.5 g IV every 8 hours Pantoprazole 40 mg IV daily Zofran 4 mg IV every 6 hours as needed Consult general surgery Symptomatic PVCs- Continue amiodarone 200 mg daily Essential tremor- Continue primidone History of Present Illness Chief Complaint: The patient presents to the emergency department with acute onset of crampy abdominal pain, distention, diarrhea, nausea, and vomiting x 1. She tried some of her daughters Zofran, but did not help her symptoms. Primary Care Provider: Ricardo Turcios DO The patient is a 72-year-old female with a past medical history including generalized anxiety disorder, essential tremor, hypercholesterolemia, CAD, Crohn's disease, hypertension, tobacco abuse, depression, and osteoporosis. She presents to the emergency department with acute onset today of crampy abdominal pain, increasing abdominal distention, nausea, and vomiting. Her last BM was earlier in the day today. She has not had any issues with small bowel obstructions in the past. CT scan of the abdomen pelvis today showed a small bowel obstruction with transition point in the right lower quadrant. From the ED the patient received the following: Dilaudid 0.5 mg IV x 1, normal saline 1 L fluid bolus, Zofran 4 mg IV, and morphine sulfate 2 mg IV. Allergies Allergy/AdvReac Type Severity Reaction Status Date / Time No Known Allergies Allergy Verified 07/02/23 08:32 Home Medications Medication Instructions Recorded Confirmed Type acetaminophen 500 mg tablet 1,000 mg PO Q6H PRN Pain 04/19/22 08/17/23 History (Tylenol Extra Strength) mirtazapine 7.5 mg tablet 7.5 mg PO HS #30 tabs 12/31/22 08/17/23 Rx omeprazole 20 mg capsule,delayed 20 mg PO DAILY 12/31/22 08/17/23 History release escitalopram oxalate 20 mg tablet 20 mg PO DAILY #90 tabs 03/30/23 08/17/23 Rx (Lexapro) teriparatide 20 mcg/dose (600 20 mcg (0.08 mL) subcut DAILY #2.4 05/12/23 08/17/23 Rx mcg/2.4 mL) subcutaneous pen mL injector (Forteo) amiodarone 200 mg tablet 200 mg PO DAILY #90 tabs 06/04/23 08/17/23 Rx metoprolol succinate 25 mg 25 mg PO DAILY #90 tabs 06/04/23 08/17/23 Rx tablet,extended release 24 hr clonazepam 0.5 mg tablet 0.25 mg (1/2 x 0.5 mg) PO BID PRN 07/28/23 08/17/23 Rx anxiety #30 tabs simvastatin 20 mg tablet 20 mg PO DAILY #90 tabs 07/28/23 08/17/23 Rx primidone 50 mg tablet (Mysoline) 250 mg PO BID 08/17/23 08/17/23 History Past Med/Surg History Medical History (Updated 08/17/23 @ 05:54 by Edwin Grant MD) Symptomatic PVCs Osteoporosis Crohn's colitis Non-healing open wound of toe Failure of rotator cuff repair Tobacco abuse Hypokalemia HTN (hypertension) Crohns disease CAD (coronary artery disease) 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, [facility] [place]: Rojas to LAD, SARIKA to RCA, saphenous vein graft to ramus intermedius, saphenous vein graft to om 2 Left shoulder pain Diarrhea Hypercholesterolemia Surgical History H/O ileostomy History of coronary artery bypass graft Family History Sister Breast cancer Colorectal cancer Mother Colorectal cancer Anxiety Myocardial infarction Father Myocardial infarction Other Cancer Heart disease Hypertension Denies family history of Ovarian cancer Social History Smoking Status: Current every day smoker Tobacco Type: Cigarettes Cigarettes Per Day: 10; Second Hand Exposure: No; Do You Dip or Chew Tobacco: No; Hx Alcohol Use: Yes Alcohol type: beer and wine Hx Substance Use: No Preferred Language: Latvian Communication Ability: Effective Airplane Pilot Required: No Beliefs That Will Affect Care: None marital status: / Current Living Situation: Alone and Family Current Living Situation Comment: Has been Ill and is staying with daughter current occupational status: retired Other Information That Helps Us Care for You: No Feels Safe at Home: Yes Safety Concerns: Feels Safe At This Time Childhood Exposure to Second-Hand Smoke: No Diet: regular caffeine: Yes Dental Care, Regularly: Yes Physical Activity Frequency: 3-4 Times per Week Seatbelt Use: always Sunscreen Use: Yes Assistive Devices: None Review of Systems Review of Systems: The patient denies chest pain, palpitations, shortness of breath, dyspnea on exertion, cough, lower extremity swelling, sore throat, fevers, chills, sweats, blood in urine or stool, dysuria, urinary frequency or urgency, lightheadedness, dizziness, headache, memory loss, loss of consciousness, rash, abnormal bruising or bleeding, imbalance, focal or generalized weakness, numbness or tingling in arms or legs, generalized arthralgias or myalgias, back or neck pain, or night sweats. The review of systems is otherwise negative other than for that already noted above, and at least 10 systems have been reviewed. Physical Exam Physical Exam: The patient is awake, alert and oriented 3, well developed and well nourished, normocephalic and atraumatic, lying in bed and in no acute distress. HEENT--PERRL, EOMI, mucous membranes and oropharynx dry. Neck--supple. No JVD. No bruits. Thyroid normal, trachea midline, no adenopathy. Heart--normal S1 and S2. No murmurs, rubs or gallops. Lungs--clear bilaterally, no respiratory distress, no accessory muscle use. Abdomen--decreased bowel sounds. Firm and distended. Mild generalized tenderness Extremities--no cyanosis or clubbing. No edema. There are good distal pulses b/l. Dermatologic--normal skin turgor, normal color, no abnormal lymph nodes, no rash. Neurologic--cranial nerves II through XII grossly intact. Rheumatologic--normal range of motion. Psychiatric--normal affect. Results & Data Results & Data Vital Signs (Past 12 Hours) Vital Signs Temp Pulse Resp BP Pulse Ox O2 Del Method O2 Flow Rate 08/16/23 23:30 65 16 106/46 L 92 08/16/23 23:25 73 19 114/55 L 93 Nasal Cannula 2 08/16/23 23:00 69 16 131/57 L 98 08/16/23 22:40 70 21 98 08/16/23 22:30 66 24 98 08/16/23 22:30 121/59 L 08/16/23 22:20 57 L 15 98 08/16/23 22:10 67 97 08/16/23 22:00 141/62 H 08/16/23 22:00 71 19 91 08/16/23 21:50 66 24 08/16/23 21:40 71 19 08/16/23 21:32 95 Room Air 08/16/23 21:31 70 22 08/16/23 21:31 140/53 L 08/16/23 21:30 72 21 08/16/23 21:20 70 20 08/16/23 21:10 66 21 08/16/23 21:07 70 08/16/23 21:07 149/60 H 08/16/23 21:07 69 08/16/23 20:50 37.3 C 83 18 143/69 H 98 Room Air Laboratory Results Laboratory Results WBC 9.12 K/ul (4.8-10.8) 08/17/23 03:43 RBC 4.43 M/uL (4.20-5.40) 08/17/23 03:43 Hgb 14.0 g/dl (12.0-16.0) 08/17/23 03:43 Hct 40.8 % (37.0-47.0) 08/17/23 03:43 MCV 92.1 fL (80.0-100.0) 08/17/23 03:43 MCH 31.6 pg (25.0-34.0) 08/17/23 03:43 MCHC 34.3 g/dL (32.0-36.0) 08/17/23 03:43 RDW Std Deviation 45.8 fL (36.4-46.3) 08/17/23 03:43 RDW Coeff of Harish 13.4 % (11.5-14.5) 08/17/23 03:43 Plt Count 315 K/uL (130-400) 08/17/23 03:43 MPV 9.8 fL (9.4-12.4) 08/17/23 03:43 Immature Gran % (Auto) 0.3 % 08/17/23 03:43 Neut % (Auto) 79.6 % 08/17/23 03:43 Lymph % (Auto) 13.4 % 08/17/23 03:43 Cannon % (Auto) 6.3 % 08/17/23 03:43 Eos % (Auto) 0.2 % 08/17/23 03:43 Baso % (Auto) 0.2 % 08/17/23 03:43 Neut # (Auto) 7.26 K/uL (1.40-6.50) H 08/17/23 03:43 Lymph # (Auto) 1.22 K/uL (1.20-3.40) 08/17/23 03:43 Cannon # (Auto) 0.57 K/uL (0.11-0.59) 08/17/23 03:43 Eos # (Auto) 0.02 K/uL (0.00-0.50) 08/17/23 03:43 Baso # (Auto) 0.02 K/uL (0.00-0.20) 08/17/23 03:43 Immature Gran # (Auto) 0.03 K/uL (0.01-0.20) 08/17/23 03:43 Sodium 138 mmol/L (136-145) 08/17/23 03:43 Potassium 3.8 mmol/L (3.5-5.1) 08/17/23 03:43 Chloride 100 mmol/L (98-107) 08/17/23 03:43 Carbon Dioxide 30 mmol/L (21-32) 08/17/23 03:43 Anion Gap 8 (3-11) 08/17/23 03:43 BUN 14 mg/dl (6-23) 08/17/23 03:43 Creatinine 0.82 mg/dl (0.6-1.2) 08/17/23 03:43 Est Cr Clr Drug Dosing 38.8 ml/min 08/17/23 03:43 Est GFR ( Amer) 83.4 ml/min 08/17/23 03:43 Est GFR (Non-Af Amer) 72.0 ml/min 08/17/23 03:43 BUN/Creatinine Ratio 17.1 (10-20) 08/17/23 03:43 Glucose 114 mg/dl (70-99(Fasting)) H 08/17/23 03:43 Calcium 9.5 mg/dl (8.6-10.3) 08/17/23 03:43 Magnesium 1.9 mg/dl (1.7-2.4) 08/17/23 03:43 Total Bilirubin 0.5 mg/dl (0.2-1.0) 08/17/23 03:43 AST 17 U/L (13-39) 08/17/23 03:43 ALT 11 U/L (7-52) 08/17/23 03:43 Alkaline Phosphatase 86 U/L (34-104) 08/17/23 03:43 Total Protein 6.7 gm/dl (6.0-8.3) 08/17/23 03:43 Albumin 4.2 gm/dl (3.4-5.0) 08/17/23 03:43 Globulin 2.5 gm/dl (2.5-4.0) 08/17/23 03:43 Albumin/Globulin Ratio 1.7 (0.9-2) 08/17/23 03:43 Lipase 32 U/L (11-82) 08/16/23 21:07 Urine Color Yellow 08/17/23 Unknown Urine Appearance Clear (Clear) 08/17/23 Unknown Urine pH 6.5 (4.5-7.5) 08/17/23 Unknown Ur Specific [place] 1.010 (1.000-1.030) 08/17/23 Unknown Urine Protein 1+ (Negative) H 08/17/23 Unknown Urine Glucose (UA) Negative (Negative) 08/17/23 Unknown Urine Ketones Negative (Negative) 08/17/23 Unknown Urine Blood Trace-intact (Negative) H 08/17/23 Unknown Urine Nitrite Negative (Negative) 08/17/23 Unknown Urine Bilirubin Negative (Negative) 08/17/23 Unknown Urine Urobilinogen Negative (Negative) 08/17/23 Unknown Ur Leukocyte Esterase Negative (Negative) 08/17/23 Unknown Urine RBC 0-4 /hpf (0-4) 08/17/23 Unknown Urine WBC 0-5 /hpf (0-5) 08/17/23 Unknown Ur Epithelial Cells 5-10 /lpf (0-5) H 08/17/23 Unknown Calcium Oxalate Crystal Present (None Prsent) A 08/17/23 Unknown Urine Bacteria Negative (Negative) 08/17/23 Unknown Impressions Abdomen/Pelvis CT 08/16/23 22:41 Exam(s): CT ABDOMEN + PELVIS With Contrast IV Amt: 87 ML OPTIRAY 320 EXAM: CT Abdomen and Pelvis With Intravenous Contrast CLINICAL HISTORY: Reason for exam: SBO, Crohns. TECHNIQUE: Axial computed tomography images of the abdomen and pelvis with intravenous contrast. CTDI is 6.4 mGy and DLP is 248.66 mGy-cm. Automated exposure control was utilized for the study. A dose lowering technique was utilized adhering to the principles of ALARA. CONTRAST: Patient received 87 ML OPTIRAY 320 of IV contrast COMPARISON: No relevant prior studies available. FINDINGS: Lung bases: COPD. No consolidation. Mediastinum: Small hiatal hernia. ABDOMEN: Liver: Unremarkable. No mass. Gallbladder and bile ducts: Cholecystectomy. No ductal dilation. Pancreas: Unremarkable. No mass. No ductal dilation. Spleen: Unremarkable. No splenomegaly. Adrenals: Unremarkable. No mass. Kidneys and ureters: Unremarkable. No hydronephrosis or delayed nephrogram. Stomach and bowel: Dilated small bowel measuring up to 4.1 cm, with fecal retention. Findings are consistent with small bowel obstruction in the pelvis. The area of transition is likely in the RIGHT lower quadrant. Surgical evaluation recommended. No mucosal thickening. PELVIS: Appendix: No findings to suggest acute appendicitis. Bladder: Unremarkable. No mass. Reproductive: Unremarkable as visualized. ABDOMEN and PELVIS: Intraperitoneal space: Unremarkable. No free air. No significant fluid collection. Bones/joints: Degenerative changes of the spine. No acute fracture. No dislocation. Soft tissues: Unremarkable. Vasculature: Atherosclerotic changes of the aorta. No abdominal aortic aneurysm. Lymph nodes: Unremarkable. No enlarged lymph nodes. IMPRESSION: Dilated small bowel measuring up to 4.1 cm, with fecal retention. Findings are consistent with small bowel obstruction in the pelvis. The area of transition is likely in the RIGHT lower quadrant. Surgical evaluation recommended. Electronically signed by: Enoch Azevedo MD 08/16/23 23:58 PM Code Status & VTE Plan Code Status Full code VTE Prophylaxis Plan VTE Prophylaxis will be ordered: Yes PG Care Time/CCT Total # of Minutes Spent Total Time Spent with Patient: Total time spent is greater than 50% in coordination of care (as documented) at patient's floor/unit and/or counseling patient: Coding Level of Care Code 29016 INT INP/OBS CARE 75MIN Diagnoses Small bowel obstruction K56.609 Generalized anxiety disorder F41.1 Hypercholesterolemia E78.00 CAD (coronary artery disease) I25.10 Hyperlipidemia, unspecified hyperlipidemia type E78.5 Hyperlipidemia type: unspecified Primary hypertension I10 Hypertension type: primary hypertension Symptomatic PVCs I49.3 Tobacco abuse Z72.0 Essential tremor G25.0 Crohn's disease without complication, unspecified gastrointestinal tract location K50.90 Digestive disease complication type: without complication Gastrointestinal tract location: unspecified location (5) Hyperlipidemia Hyperlipidemia type: unspecified Qualified Code(s): E78.5 - Hyperlipidemia, unspecified (6) HTN (hypertension) Hypertension type: primary hypertension Qualified Code(s): I10 - Essential (primary) hypertension (10) Crohns disease Digestive disease complication type: without complication Gastrointestinal tract location: unspecified location Qualified Code(s): K50.90 - Crohn's disease, unspecified, without complications
[2023-08-17] MEDS ORDERED: PIPERACILLIN/TAZOBACTAM 4.5 GM/100 ML BAG IV STA (01:04)
[2023-08-17] MEDS ORDERED: PANTOprazole 40 MG in SYRINGE 0 ML IV ONE (01:15)
[2023-08-17] MEDS: NSS + 20MEQ KCL 20 MEQ/1,000 ML BAG IV SCH ×2 (01:21→10:51)
[2023-08-17] MEDS: MoRPHine SULFATE 2 MG/ML CARP IV PRN ×3 (01:27→08:57)
[2023-08-17 04:08] LABS: Appearance Urine Clear (Clear); Bilirubin Urine Negative (Negative); Blood Urine Trace-intact (Negative); Color Urine Yellow; Glucose Urine UA Negative (Negative); Ketones Urine Negative (Negative); Leukocyte Esterase Urine Negative (Negative); Nitrite Urine Negative (Negative); Protein Urine 1+ (Negative); Urobilinogen Urine Negative (Negative); pH Urine 6.5 (4.5-7.5)
[2023-08-17 04:14] LABS: Bacteria Urine Negative (Negative); Calcium Oxalate Crystals Urine Present (None Prsent); RBC Urine 0-4 /hpf (0-4); WBC Urine 0-5 /hpf (0-5)
[2023-08-17 04:29] LABS: Basophils # (auto) 0.02 K/uL (0.00-0.20); Basophils % (auto) 0.2 %; Eosinophils # (auto) 0.02 K/uL (0.00-0.50); Eosinophils % (auto) 0.2 %; Hematocrit (blood only) 40.8 % (37.0-47.0); Immature Granulocytes # (auto) 0.03 K/uL (0.01-0.20); Immature Granulocytes % (auto) 0.3 %; Lymphocytes # (auto) 1.22 K/uL (1.20-3.40); Lymphocytes % (auto) 13.4 %; Mean Corpuscular Hemoglobin 31.6 pg (25.0-34.0); Mean Corpuscular Hgb Conc 34.3 g/dL (32.0-36.0); Mean Corpuscular Volume 92.1 fL (80.0-100.0); Mean Platelet Volume 9.8 fL (9.4-12.4); Monocytes # (auto) 0.57 K/uL (0.11-0.59); Monocytes % (auto) 6.3 %; Neutrophils # (auto) 7.26 K/uL (1.40-6.50); Neutrophils % (auto) 79.6 %; Platelet Count 315 K/uL (130-400); RDW Coefficient of Variation 13.4 % (11.5-14.5); RDW Standard Deviation 45.8 fL (36.4-46.3); Red Blood Count 4.43 M/uL (4.20-5.40); White Blood Count 9.12 K/ul (4.8-10.8)
[2023-08-17 04:48] LABS: Albumin Globulin Ratio 1.7 (0.9-2); Albumin Level 4.2 gm/dl (3.4-5.0); BUN Creatinine Ratio 17.1 (10-20); Bilirubin,Total 0.5 mg/dl (0.2-1.0); Calcium 9.5 mg/dl (8.6-10.3); Creatinine Clr Calc Pharmacy 38.8 ml/min; Est GFR (African American) 83.4 ml/min; Globulin 2.5 gm/dl (2.5-4.0); Magnesium 1.9 mg/dl (1.7-2.4); Potassium 3.8 mmol/L (3.5-5.1); Total Protein 6.7 gm/dl (6.0-8.3)
[2023-08-17] MEDS: KETOROLAC TROMETHAMINE 15 MG/ML VIAL IV PRN ×3 (06:13→20:10)
[2023-08-17] MEDS ORDERED: PIPERACILLIN/TAZOBACTAM 4.5 GM in DEXTROSE 5% MINI-B 100 ML IV SCH (08:00)
[2023-08-17] MEDS: AMIODARONE 200 MG TAB PO SCH (08:00)
[2023-08-17] MEDS: PRIMIDONE 50 MG TAB PO SCH ×2 (08:01→20:03)
[2023-08-17] MEDS: ACETAMINOPHEN 10MG/ML Custom 550 MG in EMPTY BAG 0 ML IV PRN (10:51)
[2023-08-17] MEDS: PANTOprazole 40 MG in SYRINGE 0 ML IV SCH (10:51)
[2023-08-17] MEDS ORDERED: HYDROmorphone INJ 0.5 MG/0.5 ML SYR IV PRN (12:34)
[2023-08-17] MEDS: HYDROmorphone INJ 1 MG/ML SYRINGE IV PRN ×3 (13:17→22:02)
[2023-08-17 16:23] LABS: C Reactive Protein 0.89 mg/dl (0-0.5)
[2023-08-17] MEDS: ONDANSETRON INJ 2 MG/ML 2 ML VIAL IV PRN (16:37)
--- NOTE | 2023-08-17 18:04 | Hospitalist Progress Note ---
Date of Service August 17, 2023 Assessment & Plan (1) Small bowel obstruction: Plan: 72-year-old woman with history of Crohn's disease which has been controlled on Entyvio last dose late June, next due September 10 presented with abdominal pain. Found to have small bowel obstruction with transition point in right lower quadrant on abdominal CT. She is followed by [facility] gastroenterology Dr. LARISSA Armenta who has left the practice and has an appointment to establish with a PA in August. She has a history of a colectomy and did have an ileostomy which was taken down approximately 2 years ago. - Ordered ESR and CRP which are both normal making flare of Crohn's extremely unlikely consulted general surgery continue conservative treatment with NG tube, IV fluids, IV electrolytes, IV antiemetics. Pain was inadequately controlled on IV acetaminophen and Toradol so added hydromorphone IV as needed - a.m. BMP CBC and mag (2) Generalized anxiety disorder: (3) Hypercholesterolemia: (4) CAD (coronary artery disease): (5) Hyperlipidemia: (6) HTN (hypertension): (7) Symptomatic PVCs: Plan: takes amiodarone for this per cardiology note (8) Tobacco abuse: (9) Essential tremor: (10) Crohns disease: Plan Essential tremor- Continue primidone once able to take p.o. Stop pip-tazo DVT prophylaxis - start enoxaparin 40 sq Admission and Anticipated Discharge Date Admission Date: August 17, 2023 Subjective generalized and especially epigastric abdominal pain persists. NG placed overnight resolution of nausea. Never felt distended. Physical Exam 2 Physical Exam: PHYSICAL EXAMINATION Last 24h vital signs reviewed, see documentation in flowsheet General: comfortable appearing, no distress HEENT: Normocephalic, atraumatic, pupils round and equal, sclerae anicteric, no conjunctival injection, moist mucus membranes NG tube in place with small amount of brownish drainage Lungs: Normal respiratory effort. Clear to auscultation bilaterally. No RRW Heart: Regular rate and rhythm, no murmurs. No JVD Abdomen: Soft, nondistended. tender to palpation in epigastric area especially without rebound rigidity or guarding NG suction sounds and bowel sounds present. Extremities: Warm, dry, well-perfused. No extremity edema. Neuro: Alert and oriented x 4, face symmetric, moves 4 extremities well Psych: Normal affect and behavior Results & Data Results & Data Vital Signs (Past 12 Hours) Vital Signs Temp Pulse Pulse Resp BP BP Pulse Ox 08/17/23 16:49 36.8 C 78 16 118/46 L 94 08/17/23 15:13 83 18 141/65 H 95 08/17/23 14:30 79 15 92 08/17/23 14:30 155/70 H 08/17/23 14:00 128/68 08/17/23 14:00 78 18 94 08/17/23 13:30 78 18 94 08/17/23 13:30 141/76 H 08/17/23 13:00 73 22 93 08/17/23 13:00 139/62 08/17/23 12:30 62 19 93 08/17/23 12:30 119/54 L 08/17/23 12:01 65 14 94 08/17/23 12:01 147/72 H 08/17/23 12:00 66 17 97 08/17/23 11:36 67 25 H 97 08/17/23 11:36 103/71 08/17/23 11:00 69 24 92 08/17/23 11:00 149/98 H 08/17/23 10:30 69 16 93 08/17/23 10:30 140/72 08/17/23 10:00 129/67 08/17/23 10:00 65 13 97 08/17/23 09:30 65 15 95 08/17/23 09:30 133/71 08/17/23 09:00 64 19 97 08/17/23 09:00 133/70 08/17/23 08:30 55 L 14 99 08/17/23 08:30 115/50 L 08/17/23 08:00 120/54 L 08/17/23 08:00 54 L 15 98 08/17/23 07:30 60 17 98 08/17/23 07:30 122/57 L 08/17/23 07:08 67 08/17/23 07:00 68 16 97 08/17/23 07:00 129/62 08/17/23 06:30 68 16 97 08/17/23 06:30 142/73 H 08/17/23 06:00 71 13 140/68 98 O2 Del Method O2 Flow Rate 08/17/23 16:49 Room Air 08/17/23 15:13 Room Air 08/17/23 14:30 08/17/23 14:30 08/17/23 14:00 08/17/23 14:00 08/17/23 13:30 08/17/23 13:30 08/17/23 13:00 08/17/23 13:00 08/17/23 12:30 08/17/23 12:30 08/17/23 12:01 08/17/23 12:01 08/17/23 12:00 08/17/23 11:36 08/17/23 11:36 08/17/23 11:00 08/17/23 11:00 08/17/23 10:30 08/17/23 10:30 08/17/23 10:00 08/17/23 10:00 08/17/23 09:30 08/17/23 09:30 08/17/23 09:00 08/17/23 09:00 08/17/23 08:30 08/17/23 08:30 08/17/23 08:00 08/17/23 08:00 08/17/23 07:30 08/17/23 07:30 08/17/23 07:08 08/17/23 07:00 08/17/23 07:00 08/17/23 06:30 08/17/23 06:30 08/17/23 06:00 Nasal Cannula 2 Laboratory Results 08/17/23 03:43 08/17/23 03:43 PG Care Time/CCT Total # of Minutes Spent Total Time Spent with Patient: Total time spent is greater than 50% in coordination of care (as documented) at patient's floor/unit and/or counseling patient: Coding Level of Care Code 15579 SUB INP/OBS CARE 2/35MIN Diagnoses Small bowel obstruction K56.609 Generalized anxiety disorder F41.1 Hypercholesterolemia E78.00 CAD (coronary artery disease) I25.10 Hyperlipidemia, unspecified hyperlipidemia type E78.5 Hyperlipidemia type: unspecified Primary hypertension I10 Hypertension type: primary hypertension Symptomatic PVCs I49.3 Tobacco abuse Z72.0 Essential tremor G25.0 Crohn's disease without complication, unspecified gastrointestinal tract location K50.90 Digestive disease complication type: without complication Gastrointestinal tract location: unspecified location (5) Hyperlipidemia Hyperlipidemia type: unspecified Qualified Code(s): E78.5 - Hyperlipidemia, unspecified (6) HTN (hypertension) Hypertension type: primary hypertension Qualified Code(s): I10 - Essential (primary) hypertension (10) Crohns disease Digestive disease complication type: without complication Gastrointestinal tract location: unspecified location Qualified Code(s): K50.90 - Crohn's disease, unspecified, without complications
[2023-08-18] MEDS: HYDROmorphone INJ 1 MG/ML SYRINGE IV PRN ×7 (01:59→22:15)
[2023-08-18] MEDS: NSS + 20MEQ KCL 20 MEQ/1,000 ML BAG IV SCH ×3 (02:36→22:24)
[2023-08-18] MEDS: KETOROLAC TROMETHAMINE 15 MG/ML VIAL IV PRN (04:12)
[2023-08-18 07:20] LABS: Basophils # (auto) 0.02 K/uL (0.00-0.20); Basophils % (auto) 0.3 %; Eosinophils # (auto) 0.02 K/uL (0.00-0.50); Eosinophils % (auto) 0.3 %; Hematocrit (blood only) 36.2 % (37.0-47.0); Hemoglobin 12.1 g/dl (12.0-16.0); Immature Granulocytes # (auto) 0.02 K/uL (0.01-0.20); Immature Granulocytes % (auto) 0.3 %; Lymphocytes # (auto) 0.49 K/uL (1.20-3.40); Lymphocytes % (auto) 7.6 %; Mean Corpuscular Hemoglobin 31.3 pg (25.0-34.0); Mean Corpuscular Hgb Conc 33.4 g/dL (32.0-36.0); Mean Corpuscular Volume 93.8 fL (80.0-100.0); Monocytes # (auto) 0.43 K/uL (0.11-0.59); Monocytes % (auto) 6.6 %; Neutrophils % (auto) 84.9 %; Platelet Count 243 K/uL (130-400); RDW Coefficient of Variation 13.8 % (11.5-14.5); RDW Standard Deviation 46.9 fL (36.4-46.3); Red Blood Count 3.86 M/uL (4.20-5.40); White Blood Count 6.48 K/ul (4.8-10.8)
[2023-08-18 07:23] LABS: Albumin Globulin Ratio 1.6 (0.9-2); Albumin Level 3.6 gm/dl (3.4-5.0); BUN Creatinine Ratio 23.5 (10-20); Bilirubin,Total 0.4 mg/dl (0.2-1.0); Calcium 8.8 mg/dl (8.6-10.3); Creatinine Clr Calc Pharmacy 39.3 ml/min; Est GFR (African American) 84.7 ml/min; Est GFR (Non-African American) 73.1 ml/min; Globulin 2.3 gm/dl (2.5-4.0); Magnesium 1.6 mg/dl (1.7-2.4); Total Protein 5.9 gm/dl (6.0-8.3)
--- NOTE | 2023-08-18 08:17 | Hospitalist Progress Note ---
Date of Service August 18, 2023 Assessment & Plan (1) Small bowel obstruction: Plan: 72-year-old woman with history of Crohn's disease which has been controlled on Entyvio last dose late June, next due September 10 presented with abdominal pain. Found to have small bowel obstruction with transition point in right lower quadrant on abdominal CT. She is followed by [facility] gastroenterology Dr. LARISSA Armenta who has left the practice and has an appointment to establish with a PA in August. She has a history of a colectomy and did have an ileostomy which was taken down approximately 2 years ago. 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 Baker, reviewed his recs - recommended continue conservative treatment at this time, transfer to [place] if failure to progress. Family requests transfer to [place], where she had her previous bowel surgeries. Discussed with [place] colorectal surgery Dr. Lindsey. He accepted transfer, however, since currently same level of care this is pending insurance auth, if her clinical status were to worsen then call [place] back can be emergency approval for higher level of care continue conservative treatment with NG tube, IV fluids, IV electrolytes, IV antiemetics. Had toradol x 4 doses, currently IV acetaminophen and IV hydromorphone PRN - a.m. BMP CBC and mag reviewed, same labs tomorrow AM replacing hypomagnesemia with 2g IV on 08/18 (2) Generalized anxiety disorder: (3) Hypercholesterolemia: (4) CAD (coronary artery disease): (5) Hyperlipidemia: (6) HTN (hypertension): (7) Symptomatic PVCs: Plan: takes amiodarone for this per cardiology note -held until taking po (8) Tobacco abuse: (9) Essential tremor: (10) Crohns disease: Plan: Followed by [facility] GI, on entyvio Was followed by Dr. Davidson who moved to practice at [place] recently see above Plan Essential tremor- resume primidone once able to take p.o. DVT prophylaxis - enoxaparin 40 sq Admission and Anticipated Discharge Date Admission Date: August 17, 2023 Subjective continues to have abdominal pain and distention. NG output 1300. Had one emesis. Not nauseated currently. No stools, passed tiny bit of gas. Physical Exam 2 Physical Exam: PHYSICAL EXAMINATION Last 24h vital signs reviewed, see documentation in flowsheet General: lying on side, appears moderately uncomfortable HEENT: Normocephalic, atraumatic, pupils round and equal, sclerae anicteric, no conjunctival injection, moist mucus membranes NG tube in place with brownish drainage in canister Lungs: Normal respiratory effort. Clear to auscultation bilaterally. No RRW Heart: Regular rate and rhythm, no murmurs. No JVD Abdomen: Soft, distended. diffuse mild tenderness without rebound rigidity or guarding. bowel sounds present. Extremities: Warm, dry, well-perfused. No extremity edema. Neuro: Alert and oriented x 4, face symmetric, moves 4 extremities well Psych: anxious affect and behavior Results & Data Results & Data Vital Signs (Past 12 Hours) Vital Signs Temp Pulse Resp BP Pulse Ox O2 Del Method 08/18/23 07:29 37.2 C 74 16 124/55 L 92 Room Air 08/17/23 20:34 37.9 C H 71 16 113/53 L 94 Room Air Laboratory Results 08/18/23 06:30 08/18/23 06:30 Diagnostic Findings KUB X-Ray 08/18/23 08:04 KUB CLINICAL HISTORY: Small bowel obstruction. FINDINGS: An AP, portable, supine abdominal radiograph is correlated with abdominal CT dated 08/16/2023. An enteric tube projects over the diaphragm over the stomach. There is evidence of persistent small bowel obstruction. The small bowel loops are markedly distended and gas-filled, measuring up to 6.7 cm diameter. No evidence of intraperitoneal free air is seen on this supine image. There are no abnormal abdominal calcifications. The skeletal structures are osteopenic. There is a spinal compression deformity with evidence of prior vertebroplasty. Lumbosacral spondylosis is noted. IMPRESSION: 1. Persistent high-grade small bowel obstruction with marked distention of the small bowel loops. 2. An enteric tube is in place. Electronically signed by: Mathew Hutchison M.D. 08/18/2023 12:54 PM PG Care Time/CCT Total # of Minutes Spent Total Time Spent with Patient: I personally spent: 60 minutes today on clinical care activities including: reviewing chart notes and vital signs reviewing labs reviewing studies discussion with consultants: Dr. Baker and with colorectal surgeon at [place] examining and counseling the patient counseling the patient's family writing orders documentation Coding Level of Care Code 16173 SUB INP/OBS CARE 350MIN Diagnoses Small bowel obstruction K56.609 Generalized anxiety disorder F41.1 Hypercholesterolemia E78.00 CAD (coronary artery disease) I25.10 Hyperlipidemia, unspecified hyperlipidemia type E78.5 Hyperlipidemia type: unspecified Primary hypertension I10 Hypertension type: primary hypertension Symptomatic PVCs I49.3 Tobacco abuse Z72.0 Essential tremor G25.0 Crohn's disease without complication, unspecified gastrointestinal tract location K50.90 Digestive disease complication type: without complication Gastrointestinal tract location: unspecified location (5) Hyperlipidemia Hyperlipidemia type: unspecified Qualified Code(s): E78.5 - Hyperlipidemia, unspecified (6) HTN (hypertension) Hypertension type: primary hypertension Qualified Code(s): I10 - Essential (primary) hypertension (10) Crohns disease Digestive disease complication type: without complication Gastrointestinal tract location: unspecified location Qualified Code(s): K50.90 - Crohn's disease, unspecified, without complications
[2023-08-18] MEDS: PRIMIDONE 50 MG TAB PO SCH (08:31)
[2023-08-18] MEDS: MAGNESIUM SULFATE / D5W 1 GM/100 ML BAG IV SCH ×2 (08:31→12:28)
[2023-08-18] MEDS: ENOXAPARIN INJ 40 MG/0.4 ML SYR SQ SCH (08:32)
[2023-08-18] MEDS: AMIODARONE 200 MG TAB PO SCH (11:21)
[2023-08-18] MEDS: ACETAMINOPHEN 10MG/ML Custom 550 MG in EMPTY BAG 0 ML IV PRN (12:28)
[2023-08-18] MEDS: PANTOprazole 40 MG in SYRINGE 0 ML IV SCH (12:28)
--- NOTE | 2023-08-18 12:56 | XRay Report ---
KUB CLINICAL HISTORY: Small bowel obstruction. FINDINGS: An AP, portable, supine abdominal radiograph is correlated with abdominal CT dated 4. An enteric tube projects over the diaphragm over the stomach. There is evidence of persistent smal l bowel obstruction. The small bowel loops are markedly distended and gas-filled, measuring up to 6.7 cm diameter. No evidence of intraperitoneal free air is seen on this supine image. There are no abno rmal abdominal calcifications. The skeletal structures are osteopenic. There is a spinal compression deformity with evidence of prior vertebroplasty. Lumbosacral spondylosis is noted. IMPRESSION: 1. Persistent high-grade small bowel obstruction with marked distention of the small bowel loops. 2. An enteric tube is in place. Electronically signed by: Mathew Hutchison M.D. 08/18/2023 12:54 PM
--- NOTE | 2023-08-18 12:57 | Surgery Consultation ---
Date of Consultation August 18, 2023 Assessment & Plan (1) Small bowel obstruction: recommend NG decompression no signs of ischemia IVF if needs exploration for failure to progress would recommend transfer to [place] and colorectal surgery with main goal to preserve small bowel History of Present Illness Attending Physician: Ekta Valencia MD History of Present Illness This is a 72-year-old female with admission fro [facility] by history and CT scan, she has been admitted and begun on IVF/NG decompression. Her past medical history includes generalized anxiety disorder, essential tremor, hypercholesterolemia, CAD, hypertension, tobacco abuse, depression,osteoporosis, and Crohn's disease s/p abdominal colectomy with previous ileostomy and reversal done at [place]. She presented to the emergency department with crampy abdominal pain, increasing abdominal distention, nausea, and vomiting. Her last BM was yesterday. A CT scan showed a small bowel obstruction with transition point in the right lower quadrant. Patient feels better but still no bowel activity but good BS. Allergies Allergy/AdvReac Type Severity Reaction Status Date / Time No Known Allergies Allergy Verified 07/02/23 08:32 Home Medications Medication Instructions Recorded Confirmed Type acetaminophen 500 mg tablet 1,000 mg PO Q6H PRN Pain 04/19/22 08/17/23 History (Tylenol Extra Strength) mirtazapine 7.5 mg tablet 7.5 mg PO HS #30 tabs 12/31/22 08/17/23 Rx omeprazole 20 mg capsule,delayed 20 mg PO DAILY 12/31/22 08/17/23 History release escitalopram oxalate 20 mg tablet 20 mg PO DAILY #90 tabs 03/30/23 08/17/23 Rx (Lexapro) teriparatide 20 mcg/dose (600 20 mcg (0.08 mL) subcut DAILY #2.4 05/12/23 08/17/23 Rx mcg/2.4 mL) subcutaneous pen mL injector (Forteo) amiodarone 200 mg tablet 200 mg PO DAILY #90 tabs 06/04/23 08/17/23 Rx metoprolol succinate 25 mg 25 mg PO DAILY #90 tabs 06/04/23 08/17/23 Rx tablet,extended release 24 hr clonazepam 0.5 mg tablet 0.25 mg (1/2 x 0.5 mg) PO BID PRN 07/28/23 08/17/23 Rx anxiety #30 tabs simvastatin 20 mg tablet 20 mg PO DAILY #90 tabs 07/28/23 08/17/23 Rx primidone 50 mg tablet (Mysoline) 250 mg PO BID 08/17/23 08/17/23 History Patient History Medical History (Updated 08/17/23 @ 05:54 by Edwin Grant MD) Symptomatic PVCs Osteoporosis Crohn's colitis Non-healing open wound of toe Failure of rotator cuff repair Tobacco abuse Hypokalemia HTN (hypertension) Crohns disease CAD (coronary artery disease) 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, [facility]: Rojas to LAD, SARIKA to RCA, saphenous vein graft to ramus intermedius, saphenous vein graft to om 2 Left shoulder pain Diarrhea Hypercholesterolemia Surgical History H/O ileostomy History of coronary artery bypass graft Family History Sister Breast cancer Colorectal cancer Mother Colorectal cancer Anxiety Myocardial infarction Father Myocardial infarction Other Cancer Heart disease Hypertension Denies family history of Ovarian cancer Social History Smoking Status: Current every day smoker Tobacco Type: Cigarettes Cigarettes Per Day: 10; Second Hand Exposure: No; Do You Dip or Chew Tobacco: No; Hx Alcohol Use: Yes Alcohol type: beer and wine Hx Substance Use: No Preferred Language: Malawian Communication Ability: Effective Rn Medical Inpatient Services Required: No Beliefs That Will Affect Care: None marital status: / Current Living Situation: Alone and Family Current Living Situation Comment: Has been Ill and is staying with daughter current occupational status: retired Feels Safe at Home: Yes Childhood Exposure to Second-Hand Smoke: No Diet: regular caffeine: Yes Dental Care, Regularly: Yes Physical Activity Frequency: 3-4 Times per Week Seatbelt Use: always Sunscreen Use: Yes Assistive Devices: Walker and Wheelchair Review of Systems Constitutional: + anorexia; no fever and no chills Eyes: no problem reported Ear, Nose, Mouth, Throat: + hearing loss Respiratory: no cough and no dyspnea Cardiovascular: no chest pain Gastrointestinal: + abdominal pain (improved since yesterd ay) Genitourinary: no dysuria Musculoskeletal: + joint pain; no back pain and no neck p ain Integumentary: no problem reported Neurologic: + generalized weakness; no localized wea kness Psychiatric: no behavioral changes Hematologic / Lymphatic: no easy bleeding and no easy bruising Physical Exam Constitutional: + thin Eyes: PERRL, conjunctivae normal, anicteric sclerae ENMT: external ear and nose normal, oropharynx normal Neck: trachea midline Respiratory: normal respiratory effort, lungs clear to auscultation Auscultation: + rhonchi Cardiovascular: RRR, no murmur, no edema Gastrointestinal (Abdomen): Inspection/Auscultation: abdomen normal to inspection, + abdomen distended, normal bowel sounds and + abdominal surgical scar Percussion/Palpation: + abdomen tender and abdomen soft; no guarding and abdomen not rigid Musculoskeletal: Head/Neck/Chest: normocephalic and head atraumatic Skin: no rashes, warm and dry Results & Data Vital Signs (Past 12 Hours) Vital Signs Temp Pulse Resp BP Pulse Ox O2 Del Method 08/18/23 07:29 37.2 C 74 16 124/55 L 92 Room Air Diagnostic Findings EXAM: CT Abdomen and Pelvis With Intravenous Contrast CLINICAL HISTORY: Reason for exam: SBO, Crohns. TECHNIQUE: Axial computed tomography images of the abdomen and pelvis with intravenous contrast. CTDI is 6.4 mGy and DLP is 248.66 mGy-cm. Automated exposure control was utilized for the study. A dose lowering technique was utilized adhering to the principles of ALARA. CONTRAST: Patient received 87 ML OPTIRAY 320 of IV contrast COMPARISON: No relevant prior studies available. FINDINGS: Lung bases: COPD. No consolidation. Mediastinum: Small hiatal hernia. ABDOMEN: Liver: Unremarkable. No mass. Gallbladder and bile ducts: Cholecystectomy. No ductal dilation. Pancreas: Unremarkable. No mass. No ductal dilation. Spleen: Unremarkable. No splenomegaly. Adrenals: Unremarkable. No mass. Kidneys and ureters: Unremarkable. No hydronephrosis or delayed nephrogram. Stomach and bowel: Dilated small bowel measuring up to 4.1 cm, with fecal retention. Findings are consistent with small bowel obstruction in the pelvis. The area of transition is likely in the RIGHT lower quadrant. Surgical evaluation recommended. No mucosal thickening. PELVIS: Appendix: No findings to suggest acute appendicitis. Bladder: Unremarkable. No mass. Reproductive: Unremarkable as visualized. ABDOMEN and PELVIS: Intraperitoneal space: Unremarkable. No free air. No significant fluid collection. Bones/joints: Degenerative changes of the spine. No acute fracture. No dislocation. Soft tissues: Unremarkable. Vasculature: Atherosclerotic changes of the aorta. No abdominal aortic aneurysm. Lymph nodes: Unremarkable. No enlarged lymph nodes. IMPRESSION: Dilated small bowel measuring up to 4.1 cm, with fecal retention. Findings are consistent with small bowel obstruction in the pelvis. The area of transition is likely in the RIGHT lower quadrant. Surgical evaluation recommended.
[2023-08-18] MEDS: ONDANSETRON INJ 2 MG/ML 2 ML VIAL IV PRN (13:25)
[2023-08-18] MEDS: LORazepam 0.5 MG TAB SL SCH ×2 (16:06→20:53)
[2023-08-18] MEDS ORDERED: ACETAMINOPHEN 1,000 MG/100 ML VIAL IV STA (18:50)
[2023-08-18] MEDS ORDERED: ACETAMINOPHEN 10MG/ML Custom 550 MG in EMPTY BAG 0 ML IV PRN (19:13)
[2023-08-18] MEDS ORDERED: PIPERACILLIN/TAZOBACTAM 4.5 GM in DEXTROSE 5% MINI-B 100 ML IV ONE (20:45)
[2023-08-18 21:19] LABS: Hematocrit (blood only) 36.3 % (37.0-47.0); Hemoglobin 12.2 g/dl (12.0-16.0); Mean Corpuscular Hemoglobin 31.5 pg (25.0-34.0); Mean Corpuscular Hgb Conc 33.6 g/dL (32.0-36.0); Mean Corpuscular Volume 93.8 fL (80.0-100.0); Mean Platelet Volume 9.6 fL (9.4-12.4); Platelet Count 220 K/uL (130-400); RDW Coefficient of Variation 13.7 % (11.5-14.5); RDW Standard Deviation 46.7 fL (36.4-46.3); Red Blood Count 3.87 M/uL (4.20-5.40); White Blood Count 5.61 K/ul (4.8-10.8)
[2023-08-18 21:35] LABS: Albumin Level 3.5 gm/dl (3.4-5.0); Bilirubin,Total 0.3 mg/dl (0.2-1.0); Calcium 8.6 mg/dl (8.6-10.3); Potassium 3.9 mmol/L (3.5-5.1)
[2023-08-18 21:41] LABS: Albumin Globulin Ratio 1.3 (0.9-2); BUN Creatinine Ratio 24.3 (10-20); Creatinine Clr Calc Pharmacy 45.5 ml/min; Est GFR (Non-African American) 87.2 ml/min; Globulin 2.8 gm/dl (2.5-4.0); Total Protein 6.3 gm/dl (6.0-8.3)
[2023-08-18 22:52] LABS: Adenovirus PCR Not Detected (NotDetected); Bordetella parapertussis PCR Not Detected (NotDetected); Bordetella pertussis PCR Not Detected (NotDetected); Chlamydia pneumoniae PCR Not Detected (NotDetected); Coronavirus 229E PCR Not Detected (NotDetected); Coronavirus CoV-2 (COVID19)PCR Not Detected (NotDetected); Coronavirus HKU1 PCR Not Detected (NotDetected); Coronavirus NL63 PCR Not Detected (NotDetected); Coronavirus OC43PCR Not Detected (NotDetected); Human Metapneumovirus PCR Not Detected (NotDetected); Influenza A PCR Not Detected (NotDetected); Influenza B PCR Not Detected (NotDetected); Mycoplasma pneumoniae PCR Not Detected (NotDetected); Parainfluenza Virus 1 PCR Not Detected (NotDetected); Parainfluenza Virus 2 PCR Not Detected (NotDetected); Parainfluenza Virus 3 PCR Not Detected (NotDetected); Parainfluenza Virus 4 PCR Not Detected (NotDetected); Respiratory Syncytial VirusPCR Not Detected (NotDetected); Rhinovirus/Enterovirus PCR Not Detected (NotDetected)
--- NOTE | 2023-08-18 23:25 | Communication Note ---
Date of Service: August 18, 2023 Patient evaluated at bedside. She reports feeling well. She denies worsening abdominal pain, distention or nausea She does report developing a slight cough earlier today otherwise no complaints NGT is in place with bilious output in canister On exam, temperature has improved +S1/S2, regular Lungs CTA Abd soft, distended, +BS, NGT in place KUB per my interpretation with distended loops of bowel, no appreciable free air CXR with no obvious infiltrate -Respiratory viral panel ordered due to patients reported cough Will continue to monitor
[2023-08-19] MEDS: ONDANSETRON INJ 2 MG/ML 2 ML VIAL IV PRN ×2 (00:30→18:33)
[2023-08-19] MEDS: HYDROmorphone INJ 1 MG/ML SYRINGE IV PRN ×6 (01:56→21:48)
[2023-08-19] MEDS: PIPERACILLIN/TAZOBACTAM 4.5 GM in DEXTROSE 5% MINI-B 100 ML IV SCH ×3 (01:56→18:46)
[2023-08-19] MEDS: NSS + 20MEQ KCL 20 MEQ/1,000 ML BAG IV SCH ×3 (04:43→18:50)
[2023-08-19] MEDS ORDERED: FAMOTIDINE 20 MG in SYRINGE 3 ML IV STA (05:51)
[2023-08-19 07:01] LABS: Basophils # (auto) 0.01 K/uL (0.00-0.20); Basophils % (auto) 0.2 %; Eosinophils # (auto) 0.01 K/uL (0.00-0.50); Eosinophils % (auto) 0.2 %; Hematocrit (blood only) 36.7 % (37.0-47.0); Hemoglobin 12.2 g/dl (12.0-16.0); Immature Granulocytes # (auto) 0.02 K/uL (0.01-0.20); Immature Granulocytes % (auto) 0.4 %; Lymphocytes # (auto) 0.46 K/uL (1.20-3.40); Lymphocytes % (auto) 8.2 %; Mean Corpuscular Hemoglobin 31.1 pg (25.0-34.0); Mean Corpuscular Hgb Conc 33.2 g/dL (32.0-36.0); Mean Corpuscular Volume 93.6 fL (80.0-100.0); Mean Platelet Volume 9.9 fL (9.4-12.4); Monocytes # (auto) 0.36 K/uL (0.11-0.59); Monocytes % (auto) 6.4 %; Neutrophils # (auto) 4.73 K/uL (1.40-6.50); Neutrophils % (auto) 84.6 %; Platelet Count 235 K/uL (130-400); RDW Coefficient of Variation 13.8 % (11.5-14.5); RDW Standard Deviation 47.6 fL (36.4-46.3); Red Blood Count 3.92 M/uL (4.20-5.40); White Blood Count 5.59 K/ul (4.8-10.8)
[2023-08-19 07:12] LABS: Albumin Globulin Ratio 1.5 (0.9-2); Albumin Level 3.8 gm/dl (3.4-5.0); BUN Creatinine Ratio 21.1 (10-20); Bilirubin,Total 0.4 mg/dl (0.2-1.0); Creatinine Clr Calc Pharmacy 41.9 ml/min; Est GFR (African American) 91.5 ml/min; Est GFR (Non-African American) 78.9 ml/min; Globulin 2.6 gm/dl (2.5-4.0); Magnesium 2.1 mg/dl (1.7-2.4); Total Protein 6.4 gm/dl (6.0-8.3)
--- NOTE | 2023-08-19 07:25 | XRay Report ---
KUB CLINICAL HISTORY: Small bowel obstruction. FINDINGS: 2 AP, portable, supine abdominal radiographs are compared to study dated 08/18/2023 and eda elated with abdominal CT dated 08/16/2023. An enteric tube projects over the diaphragm over the stomac h. There is evidence of persistent small bowel obstruction. The small bowel loops are markedly disten ded and gas-filled, measuring up to 6.5 cm in diameter. No evidence of intraperitoneal free air is se en on these supine images. There are no abnormal abdominal calcifications. The skeletal structures ar e osteopenic. There is a spinal compression deformity with evidence of prior vertebroplasty. Lumbosac ral spondylosis is noted. IMPRESSION: Persistent high-grade small bowel obstruction with marked distention of the small bowel l oops. This has not appreciably changed from yesterday. Electronically signed by: Mathew Hutchison M.D. 08/19/2023 7:23 AM
--- NOTE | 2023-08-19 07:55 | XRay Report ---
XR chest 1V portable CLINICAL HISTORY: SBO, fever TECHNIQUE: Single frontal radiograph of the chest was obtained. Comparison: Comparison is made to chest radiograph 03/09/2021 FINDINGS: Enteric tube tip and side-port lie below the diaphragm. There is a small hiatal hernia. The cardiomed iastinal silhouette is normal. Peribronchial thickening is seen. Emphysema noted. No evidence of pleu ral effusion or pneumothorax. IMPRESSION: Peribronchial thickening is seen compatible with infectious/inflammatory airways disease or viral pne umonia. No ron consolidation is seen. ACT 112: Negative or not required by law. Electronically signed by: Terence Bliss M.D. 08/19/2023 7:53 AM
[2023-08-19] MEDS: ENOXAPARIN INJ 40 MG/0.4 ML SYR SQ SCH (08:32)
--- NOTE | 2023-08-19 08:43 | Surgery Progress Note ---
Date of Service August 19, 2023 Assessment & Plan (1) Small bowel obstruction: Plan: feels better con't NG IVF if no bowel function by tomorrow recommend transfer to colorectal surgeons at [place] no signs of ischemia Admission and Anticipated Discharge Date Admission Date: August 17, 2023 Subjective patient feels better no flatus yet but feels like it may come NG bilious Review of Systems Constitutional: no fever and no chills Ear, Nose, Mouth, Throat: + hearing loss Respiratory: no cough and no dyspnea Cardiovascular: no chest pain Gastrointestinal: + change in bowel habits; no abdominal p ain, no nausea and no vomiting Genitourinary: no dysuria Musculoskeletal: no back pain Neurologic: no localized weakness Psychiatric: no behavioral changes Physical Exam Constitutional: + thin Neck: trachea midline Respiratory: normal respiratory effort, lungs clear to auscultation Cardiovascular: RRR, no murmur, no edema Gastrointestinal (Abdomen): Inspection/Auscultation: abdomen normal to inspection and normal bowel sounds; abdomen not distended Percussion/Palpation: abdomen soft; abdomen nontender, no guarding and abdomen not rigid Musculoskeletal: Head/Neck/Chest: normocephalic and head atraumatic Skin: no rashes, warm and dry Results & Data Vital Signs (Past 12 Hours) Vital Signs Temp Pulse Pulse Resp BP BP Pulse Ox 08/19/23 07:20 36.9 C 67 16 140/64 92 08/19/23 07:10 37.2 C 65 16 130/66 95 08/19/23 04:47 37.7 C H 08/18/23 20:51 37.9 C H 71 18 114/47 L 95 08/18/23 20:44 38.1 C H 71 16 97/53 L 92 O2 Del Method 08/19/23 07:20 Room Air 08/19/23 07:10 Room Air 08/19/23 04:47 08/18/23 20:51 Room Air 08/18/23 20:44 Room Air
[2023-08-19] MEDS: LORazepam 0.5 MG TAB SL SCH ×4 (09:47→20:29)
[2023-08-19] MEDS: PANTOprazole 40 MG in SYRINGE 0 ML IV SCH (12:42)
[2023-08-19] MEDS ORDERED: CHLORASEPTIC (PHENOL) 1.4% SOLN 180 ML BTL MT PRN (18:09)
[2023-08-19] MEDS ORDERED: HYDROmorphone INJ 0.5 MG/0.5 ML SYR IV PRN (18:12)
--- NOTE | 2023-08-19 18:12 | Hospitalist Progress Note ---
Date of Service August 19, 2023 Assessment & Plan (1) Small bowel obstruction: Plan: ongoing likely 2nd to adhesions - has had extensive bowel surgery including colectomy and ileostomy formation then ultimately a take-down in the past can't rule out a stricture or other process from her Crohn's disease but much less likely (Crohn's has been under good control, sed rate/crp wnl, etc) follows with [facility] Appreciate general surgery consultation/assistance by Dr. Baker if pt's SBO does not start to resolve in the next [address] Baker advising transfer to [facility] prior attending spoke with [place] colorectal surgery Dr. Lindsey earlier in the hospitalization cont NG tube decompression, IV fluids, IV pain meds (changed dosing frequency to q3h), etc labs am (2) Generalized anxiety disorder: Plan: takes klonipin prn at home using ativan 0.5mg SL QID in harish (3) Hypercholesterolemia: Plan: statin on hold (4) CAD (coronary artery disease): Plan: 2019 heart cath - Severe ostial LM disease. 99% mid RCA, 70% mid LAD and D1. 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 (8) Essential tremor: Plan: typically on primidone (9) Crohns disease: Plan: Followed by [facility] On Entyvio chronically with good control by report see #1 above (10) Underweight: Plan: BMI 16 (11) Fever: Plan: with associated cough cxr with peribronchial infiltrates which would argue for viral process oddly [employer] resp panel is negative could be an atypical bacterial process if fevers recur, pulmonary symptoms worsen, etc would cover for atypical pneumonia with doxy or similar Plan DVT prophylaxis - enoxaparin 40mg daily daughter updated at bedside Admission and Anticipated Discharge Date Admission Date: August 17, 2023 Subjective continues with copious bilious drainage from her NG tube she remains distended/bloated and has intermittent abd pain she has needed dilaudid IV for pain; only lasting 1-2 hours having burping and reflux symptoms despite NG tube no flatus did pass a very tiny, hard BM earlier today walking the hallways pt reports at last GI visit she was told her Crohn's was under good control daughter at bedside during the visit Review of Systems Review of Systems: cv - no chest pain pulm - no dyspnea but some cough HENT - sore throat GI - ongoing abd pain/bloating/distension; no vomiting gen - fever last pm Physical Exam Physical Exam: gen - very thin/underweight, pleasant, NAD mouth - MMM nose - NG tube in place, bilious drainage neck - no JVD heart - RRR, s1 s2 lungs - CTA b/l, no rales or wheeze abd - significant distension, BS decreased, tender central abdomen to palpation, tympanic to percussion, no HSM ext - no edema, pulses 2+ b/l psych - a/o x 3 Results & Data Results & Data Vital Signs (Past 12 Hours) Vital Signs Temp Pulse Pulse Resp BP Pulse Ox O2 Del Method 08/19/23 15:00 37.2 C 73 14 133/72 95 Room Air 08/19/23 11:29 36.9 C 76 16 119/65 93 Room Air 08/19/23 07:20 36.9 C 67 16 140/64 92 Room Air 08/19/23 07:10 37.2 C 65 16 130/66 95 Room Air Laboratory Results Laboratory Results - last 24 hr 08/19/23 06:04 WBC 5.59 RBC 3.92 L Hgb 12.2 Hct 36.7 L MCV 93.6 MCH 31.1 MCHC 33.2 RDW Std Deviation 47.6 H RDW Coeff of Harish 13.8 Plt Count 235 MPV 9.9 Immature Gran % (Auto) 0.4 Neut % (Auto) 84.6 Lymph % (Auto) 8.2 [place] % (Auto) 6.4 Eos % (Auto) 0.2 Baso % (Auto) 0.2 Neut # (Auto) 4.73 Lymph # (Auto) 0.46 L [place] # (Auto) 0.36 Eos # (Auto) 0.01 Baso # (Auto) 0.01 Immature Gran # (Auto) 0.02 Sodium 138 Potassium 4.0 Chloride 102 Carbon Dioxide 27 Anion Gap 9 BUN 16 Creatinine 0.76 Est Cr Clr Drug Dosing 41.9 Est GFR ( Amer) 91.5 Est GFR (Non-Af Amer) 78.9 BUN/Creatinine Ratio 21.1 H Glucose 104 H Calcium 9.0 Magnesium 2.1 Total Bilirubin 0.4 AST 23 ALT 12 Alkaline Phosphatase 66 Total Protein 6.4 Albumin 3.8 Globulin 2.6 Albumin/Globulin Ratio 1.5 BioFire respiratory panel negative Diagnostic Findings KUB X-Ray 08/18/23 08:04 KUB CLINICAL HISTORY: Small bowel obstruction. FINDINGS: An AP, portable, supine abdominal radiograph is correlated with abdominal CT dated 08/16/2023. An enteric tube projects over the diaphragm over the stomach. There is evidence of persistent small bowel obstruction. The small bowel loops are markedly distended and gas-filled, measuring up to 6.7 cm diameter. No evidence of intraperitoneal free air is seen on this supine image. There are no abnormal abdominal calcifications. The skeletal structures are osteopenic. There is a spinal compression deformity with evidence of prior vertebroplasty. Lumbosacral spondylosis is noted. IMPRESSION: 1. Persistent high-grade small bowel obstruction with marked distention of the small bowel loops. 2. An enteric tube is in place. Electronically signed by: Mathew Hutchison M.D. 08/18/2023 12:54 PM Chest X-Ray 08/18/23 18:50 XR chest 1V portable CLINICAL HISTORY: SBO, fever TECHNIQUE: Single frontal radiograph of the chest was obtained. Comparison: Comparison is made to chest radiograph 03/09/2021 FINDINGS: Enteric tube tip and side-port lie below the diaphragm. There is a small hiatal hernia. The cardiomediastinal silhouette is normal. Peribronchial thickening is seen. Emphysema noted. No evidence of pleural effusion or pneumothorax. IMPRESSION: Peribronchial thickening is seen compatible with infectious/inflammatory airways disease or viral pneumonia. No ron consolidation is seen. ACT 112: Negative or not required by law. Electronically signed by: Terence Bliss M.D. 08/19/2023 7:53 AM KUB X-Ray 08/18/23 18:50 KUB CLINICAL HISTORY: Small bowel obstruction. FINDINGS: 2 AP, portable, supine abdominal radiographs are compared to study dated 08/18/2023 and correlated with abdominal CT dated 08/16/2023. An enteric tube projects over the diaphragm over the stomach. There is evidence of persistent small bowel obstruction. The small bowel loops are markedly distended and gas-filled, measuring up to 6.5 cm in diameter. No evidence of intraperitoneal free air is seen on these supine images. There are no abnormal abdominal calcifications. The skeletal structures are osteopenic. There is a spinal compression deformity with evidence of prior vertebroplasty. Lumbosacral spondylosis is noted. IMPRESSION: Persistent high-grade small bowel obstruction with marked distention of the small bowel loops. This has not appreciably changed from yesterday. Electronically signed by: Mathew Hutchison M.D. 08/19/2023 7:23 AM PG Care Time/CCT Total # of Minutes Spent Total Time Spent with Patient: Total time spent is greater than 50% in coordination of care (as documented) at patient's floor/unit and/or counseling patient: Coding Level of Care Code 66016 SUB INP/OBS CARE 3/50MIN Diagnoses Small bowel obstruction K56.609 Generalized anxiety disorder F41.1 Hypercholesterolemia E78.00 CAD (coronary artery disease) I25.10 Primary hypertension I10 Hypertension type: primary hypertension Symptomatic PVCs I49.3 Tobacco abuse Z72.0 Essential tremor G25.0 Crohn's disease without complication, unspecified gastrointestinal tract location K50.90 Digestive disease complication type: without complication Gastrointestinal tract location: unspecified location Underweight R63.6 Fever R50.9 (5) HTN (hypertension) Hypertension type: primary hypertension Qualified Code(s): I10 - Essential (primary) hypertension (9) Crohns disease Digestive disease complication type: without complication Gastrointestinal tract location: unspecified location Qualified Code(s): K50.90 - Crohn's disease, unspecified, without complications
[2023-08-20] MEDS: HYDROmorphone INJ 1 MG/ML SYRINGE IV PRN ×5 (00:49→20:07)
[2023-08-20] MEDS: PIPERACILLIN/TAZOBACTAM 4.5 GM in DEXTROSE 5% MINI-B 100 ML IV SCH ×3 (00:51→18:39)
[2023-08-20] MEDS ORDERED: KETOROLAC TROMETHAMINE 15 MG/ML VIAL IV ONE ×2 (02:56→08:09)
[2023-08-20] MEDS: NSS + 20MEQ KCL 20 MEQ/1,000 ML BAG IV SCH (04:47)
[2023-08-20 07:02] LABS: Hematocrit (blood only) 39.9 % (37.0-47.0); Hemoglobin 13.4 g/dl (12.0-16.0); Mean Corpuscular Hemoglobin 31.3 pg (25.0-34.0); Mean Corpuscular Hgb Conc 33.6 g/dL (32.0-36.0); Mean Corpuscular Volume 93.2 fL (80.0-100.0); Mean Platelet Volume 9.8 fL (9.4-12.4); Platelet Count 264 K/uL (130-400); RDW Coefficient of Variation 13.9 % (11.5-14.5); RDW Standard Deviation 47.4 fL (36.4-46.3); Red Blood Count 4.28 M/uL (4.20-5.40); White Blood Count 6.57 K/ul (4.8-10.8)
[2023-08-20 07:26] LABS: BUN Creatinine Ratio 25.8 (10-20); Calcium 9.1 mg/dl (8.6-10.3); Creatinine Clr Calc Pharmacy 34.2 ml/min; Est GFR (African American) 71.7 ml/min; Est GFR (Non-African American) 61.8 ml/min; Magnesium 2.2 mg/dl (1.7-2.4); Potassium 4.4 mmol/L (3.5-5.1)
[2023-08-20] MEDS: LACTATED RINGER'S 1,000 ML IV SCH ×2 (08:27→18:59)
--- NOTE | 2023-08-20 08:58 | XRay Report ---
ABDOMEN 2 VIEWS HISTORY: Small bowel obstruction with worsening abdominal pain; assess for free air, etc COMPARISON: KUB 08/18/2023. FINDINGS: There is a persistent high-grade small bowel obstruction with multiple dilated loops of sma ll bowel within the midabdomen measuring up to 5 cm in diameter. Nasogastric tube terminates in the s tomach. There are poststernotomy changes. Vertebroplasty at L1 again noted. IMPRESSION: 1. Persistent high-grade small bowel obstruction which is similar to the prior study. 2. Nasogastric tube terminates in the stomach. ACT 112: Negative or not required by law. Electronically signed by: Hernandez Barber M.D. 08/20/2023 8:57 AM
[2023-08-20] MEDS: ENOXAPARIN INJ 40 MG/0.4 ML SYR SQ SCH (09:06)
[2023-08-20] MEDS: LORazepam 0.5 MG TAB SL SCH ×3 (09:06→16:55)
--- NOTE | 2023-08-20 09:40 | Surgery Progress Note ---
Date of Service August 20, 2023 Assessment & Plan (1) Small bowel obstruction: Plan: no progress will need exploration recommend transfer to colorectal service in case bowel salvage techniques required Admission and Anticipated Discharge Date Admission Date: August 17, 2023 Subjective more uncomfortable thia AM no significant change Review of Systems Constitutional: no fever and no chills Respiratory: no cough and no dyspnea Cardiovascular: no chest pain Gastrointestinal: + abdominal pain, + nausea and + change in bowel habits; no vomiting Genitourinary: no dysuria Musculoskeletal: no back pain Integumentary: no problem reported Neurologic: + generalized weakness; no localized wea kness Psychiatric: no behavioral changes Physical Exam Constitutional: + thin Neck: trachea midline Respiratory: normal respiratory effort Cardiovascular: RRR, no murmur, no edema Gastrointestinal (Abdomen): Inspection/Auscultation: + abdomen distended and + visible herniation; + abnormal bowel sounds Percussion/Palpation: abdomen soft; abdomen nontender, no guarding and abdomen not rigid Musculoskeletal: Head/Neck/Chest: normocephalic and head atraumatic Skin: no rashes, warm and dry Results & Data Vital Signs (Past 12 Hours) Vital Signs Temp Pulse Resp BP Pulse Ox O2 Del Method 08/20/23 08:09 36.9 C 75 16 151/85 H 94 Room Air
[2023-08-20] MEDS: PANTOprazole 40 MG in SYRINGE 0 ML IV SCH (10:31)
[2023-08-20] MEDS ORDERED: FAMOTIDINE 20 MG in SYRINGE 3 ML IV ONE (12:48)
[2023-08-20] MEDS ORDERED: NICOTINE 21 MG/24 HR TDSY TD SCH (13:00)
[2023-08-20 13:41] LABS: Troponin I High Sensitivity 12.5 pg/ml (0-14)
[2023-08-20 16:01] LABS: BUN Creatinine Ratio 28.3 (10-20); Calcium 9.3 mg/dl (8.6-10.3); Creatinine Clr Calc Pharmacy 28.2 ml/min; Est GFR (African American) 56.6 ml/min; Est GFR (Non-African American) 48.9 ml/min; Potassium 4.1 mmol/L (3.5-5.1); Troponin I High Sensitivity 17.5 pg/ml (0-14)
[2023-08-20] MEDS: ONDANSETRON INJ 2 MG/ML 2 ML VIAL IV PRN (16:55)
--- NOTE | 2023-08-20 17:08 | Discharge Summary ---
Date of Service August 20, 2023 Admission HPI Per Admitting Provider The patient is a 72-year-old female with a past medical history including generalized anxiety disorder, essential tremor, hypercholesterolemia, CAD, Crohn's disease, hypertension, tobacco abuse, depression, and osteoporosis. She presents to the emergency department with acute onset today of crampy abdominal pain, increasing abdominal distention, nausea, and vomiting. Her last BM was earlier in the day today. She has not had any issues with small bowel obstructions in the past. CT scan of the abdomen pelvis today showed a small bowel obstruction with transition point in the right lower quadrant. From the E D the patient received the following: Dilaudid 0.5 mg IV x 1, normal saline 1 L fluid bolus, Zofran 4 mg IV, and morphine sulfate 2 mg IV. Discharge Exam gen - very thin/underweight, pleasant, NAD mouth - MMM nose - NG tube in place, bilious drainage neck - no JVD heart - RRR, s1 s2 lungs - CTA b/l, no rales or wheeze abd - significant distension, BS decreased, tender central abdomen to palpation, tympanic to percussion, no HSM ext - no edema, pulses 2+ b/l psych - a/o x 3 Discharge Data Allergies Allergy/AdvReac Type Severity Reaction Status Date / Time No Known Allergies Allergy Verified 07/02/23 08:32 Consultations 08/17/23 00:04 ED Decision to Admit Stat 08/18/23 08:10 Consult General Surgery Routine 08/20/23 15:43 Burn CD for patient Stat Ordered Studies 08/16/23 22:41 CT abd pelvis IV con only Stat Hospital Course (1) Small bowel obstruction: ongoing likely 2nd to adhesions - has had extensive bowel surgery including colectomy and ileostomy formation then ultimately a take-down in the past can't rule out a stricture or other process from her Crohn's disease but much less likely (Crohn's has been under good control, sed rate/crp wnl, etc) follows with [facility] Appreciate general surgery consultation/assistance by Dr. Baker if pt's SBO does not start to resolve in the next [address] Baker advising transfer to [facility] prior attending spoke with [place] colorectal surgery Dr. Lindsey earlier in the hospitalization cont NG tube decompression, IV fluids, IV pain meds (changed dosing frequency to q3h), etc labs am (2) Generalized anxiety disorder: takes klonipin prn at home using ativan 0.5mg SL QID in harish (3) Hypercholesterolemia: statin on hold (4) CAD (coronary artery disease): 2019 heart cath - Severe ostial LM disease. 99% mid RCA, 70% mid LAD and D1. 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 (8) Essential tremor: typically on primidone (9) Crohns disease: Followed by [facility] On Entyvio chronically with good control by report see #1 above (10) Underweight: BMI 16 (11) Fever: with associated cough cxr with peribronchial infiltrates which would argue for viral process oddly [employer] resp panel is negative could be an atypical bacterial process if fevers recur, pulmonary symptoms worsen, etc would cover for atypical pneumonia with doxy or similar Plan DVT prophylaxis - enoxaparin 40mg daily daughter updated at bedside Discharge Plan Discharge Items Reason For Visit: SBO, CROHNS, HYPOTENSION Follow-up/Referrals: Ricardo Turcios DO [Primary Care Provider] - Medications and DC Order Prescriptions: No Action Forteo 20 mcg/dose (600mcg/2.4mL) pen injector 20 mcg subcut DAILY Qty: 2.4 3RF amiodarone 200 mg tablet 200 mg PO DAILY Qty: 90 3RF Rx Instructions: take two tablets daily for 10 days then 1 tablet daily metoprolol succinate 25 mg tablet extended release 24 hr 25 mg PO DAILY Qty: 90 3RF simvastatin 20 mg tablet 20 mg PO DAILY Qty: 90 2RF clonazepam 0.5 mg tablet 0.25 mg PO BID PRN (Reason: anxiety) Qty: 30 0RF omeprazole 20 mg capsule,delayed release(DR/EC) 20 mg PO DAILY mirtazapine 7.5 mg tablet 7.5 mg PO HS Qty: 30 2RF escitalopram oxalate [Lexapro] 20 mg tablet 20 mg PO DAILY Qty: 90 3RF acetaminophen [Tylenol Extra Strength] 500 mg Tablet 1,000 mg PO Q6H PRN (Reason: Pain) primidone [Mysoline] 50 mg tablet 250 mg PO BID Rx Instructions: This is the dose daughter says she is on. Admission Data Admit Date/Time: 08/17/23 00:52 Attending Provider: Andres Acevedo Admit Provider: Edwin Grant Primary Care Provider: Ricardo Turcios Other Providers: Edwin Grant; Antwon Baker Coding Diagnoses Small bowel obstruction K56.609 Generalized anxiety disorder F41.1 Hypercholesterolemia E78.00 CAD (coronary artery disease) I25.10 Primary hypertension I10 Hypertension type: primary hypertension Symptomatic PVCs I49.3 Tobacco abuse Z72.0 Essential tremor G25.0 Crohn's disease without complication, unspecified gastrointestinal tract location K50.90 Digestive disease complication type: without complication Gastrointestinal tract location: unspecified location Underweight R63.6 Fever R50.9
--- NOTE | 2023-08-22 06:23 | Electrocardiogram Report ---
Test Reason : Blood Pressure : / mmHG Vent. Rate : 066 BPM Atrial Rate : 066 BPM P-R Int : 118 ms QRS Dur : 084 ms QT Int : 396 ms P-R-T Axes : 040 036 062 degrees QTc Int : 415 ms Normal sinus rhythm T wave abnormality, consider anterior ischemia Abnormal ECG When compared with ECG of 19-APR-2022 20:01, Premature ventricular complexes are no longer Present Vent. rate has decreased BY 37 BPM T wave inversion no longer evident in Inferior leads T wave inversion no longer evident in Lateral leads Confirmed by Evens Bates ([id number]) on 08/22/2023 6:23:33 AM Referred By: REFERRED SELF Confirmed By:Evens Bates
== END 2023-08-20 20:10 | disposition short-term general hospital (02) | DRG 389 ==
LOC: ED 20:47 → SUATTDRO 08-17 00:52 → EDINP 08-17 00:52 → 3W 08-17 03:28

== ENCOUNTER 2023-09-19 16:15 | Inpatient (IN) ==
--- NOTE | 2023-09-19 16:39 | Emergency Department Note ---
Impression & Plan SBO (small bowel obstruction), Abdominal pain, Nausea ED Provider Note HISTORY OF PRESENT ILLNESS: Patient is a 72-year-old female presenting with mid abdominal pain. Patient reports that at noon today she developed sudden onset of significant abdominal pain just above her umbilicus. Reports that the pain feels similar to when she had a bowel obstruction a few weeks ago. She was diagnosed with a bowel obstruction and got sent to [facility] for surgery 2 weeks ago. She had her surgical incision miranda removed 3 days ago and was doing well up until noon today. She reports nausea but no vomiting. Reports normal bowel movement just a few hours ago. Denies any fevers. Denies any dysuria or hematuria. She does still have her gallbladder and appendix. ROS: as above PHYSICAL EXAM: Constitutional: Patient appears in no acute distress. HENT: Head: Normocephalic and atraumatic. Eyes: EOMI, PERRL Mouth/Throat: Mucous membranes moist. Neck: Trachea midline. Neck supple. Cardiovascular: RRR, No murmurs, rubs or gallops. Intact distal pulses. Pulmonary/Chest: No respiratory distress. Breath sounds clear and equal bilaterally. No wheezes or rales. No chest wall tenderness to palpation. Abdominal: Abdomen soft, no rebound or guarding. RLQ TTP. Surgical incision is clean/dry/intact around umbilicus Musculoskeletal: No edema, tenderness or deformity noted. Skin: Warm and dry. No rash, erythema, pallor or cyanosis Psychiatric: Appropriate mood and affect for situation. Neurological: Alert and keenly responsive. CN II-XII grossly intact, moving all extremities equally and fully. MDM: - Vitals signs stable - History obtained via patient. Patient presents with acute onset of mid abdominal pain. Patient reports at noon today she developed sudden onset of significant abdominal pain just above her umbilicus and radiates diffusely across her abdomen. Reports the pain feels similar to when she had a bowel obstruction a few weeks ago. She had a bowel obstruction at the end of July and then was sent to [facility] for surgery 2 weeks ago. She just had her surgical incisions removed 3 days ago at an outpatient clinic appointment was doing well until today. Reports nausea but no vomiting. Normal bowel movement just a few hours ago. - Chronic conditions affecting care: CAD; HTN; Crohn's disease (s/p ileostomy and reversal) - Differential diagnoses include, but are not limited to: cholecystitis; appendicitis; small bowel obstruction; perforated gastric ulcer; viral syndrome - Order placed for continuous cardiac monitoring. At this time, monitor showed rate of 81 bpm with normal sinus rhythm, per my interpretation. - External medical records reviewed. Patient was admitted to the hospital on 08/18/2023 here at [facility] for small bowel obstruction. However, she had no bowel movement in the 3 days she was admitted here and was transferred to the colorectal service at [facility]. - EKG interpreted by myself showed normal sinus rhythm. Rate 81 bpm. QT 412. No acute ischemic changes. - Laboratory workup interpreted by myself showed normal WBC; stable electrolytes; initial lactate normal (1.3); slightly elevated lipase (85) - CT abdomen/pelvis with IV contrast showed high-grade small bowel obstruction with twisting of the mesentery and at least to transition point suggestive of a closed-loop obstruction. Noted to have mesenteric and body wall edema. - Given patient's recent surgery at [facility], their facility was called for transfer at 1851. Discussed case with colorectal surgeon, Dr. Hinkle at 18:51. She discussed that if the patient truly has a closed-loop obstruction she needs more emergent surgery and should not wait for transfer. She reports that the patient had reportedly a adhesion between the omentum and retroperitoneum that was causing an internal hernia and she had lysis of this adhesion at the facility 2 weeks ago. - Patient given 50 mcg IV fentanyl and 4 mg IV zofran on her arrival. On reassessment, patient still complaining of significant pain. She was given a total of 1 mg IV dilaudid and an additional 4 mg IV zofran for nausea. Given 2L NS for hydration. - On reassessment, patient still having pain. Given 2 mg IV morphine. - Discussed NG tube placement with patient. She was agreeable and given 4 mg IV morphine for continued pain. - Given an additional 2L NS for blood pressure and HR support in ER. - Discussed case with surgeon on-call at [facility], Dr. Baker at 18:58. Discussed patient's case and recommendations from surgery at [facility]. He came and evaluated the patient. Does not think patient needs emergent surgery at this time. Will admit to his service and consult medicine. - Repeat lactate elevated at 4.6. - Patient admitted to surgery service for further evaluation and management. ASSESSMENT AND PLAN: Diagnosis: closed loop bowel obstruction; nausea; abdominal pain Plan: admit Past Med/Surg History Medical History (Updated 09/19/23 @ 22:18 by Cassandra Rivera MD) Symptomatic PVCs Osteoporosis Crohn's colitis Non-healing open wound of toe Failure of rotator cuff repair Tobacco abuse Hypokalemia HTN (hypertension) Crohns disease CAD (coronary artery disease) 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, [facility]: Rojas to LAD, SARIKA to RCA, saphenous vein graft to ramus intermedius, saphenous vein graft to om 2 Left shoulder pain Diarrhea Hypercholesterolemia Surgical History H/O ileostomy History of coronary artery bypass graft Family History Sister Breast cancer Colorectal cancer Mother Colorectal cancer Anxiety Myocardial infarction Father Myocardial infarction Other Cancer Heart disease Hypertension Denies family history of Ovarian cancer Social History Smoking Status: Former smoker Tobacco Type: Cigarettes Cigarettes Per Day: 10; Second Hand Exposure: No; Do You Dip or Chew Tobacco: No; Hx Alcohol Use: Yes Alcohol type: beer and wine Hx Substance Use: No Preferred Language: Tuvaluan Communication Ability: Effective Marker Hand Required: No Beliefs That Will Affect Care: None marital status: / Current Living Situation: Alone and Family Current Living Situation Comment: Has been Ill and is staying with daughter current occupational status: retired Feels Safe at Home: Yes Childhood Exposure to Second-Hand Smoke: No Diet: regular caffeine: Yes Dental Care, Regularly: Yes Physical Activity Frequency: 3-4 Times per Week Seatbelt Use: always Sunscreen Use: Yes Assistive Devices: Walker and Wheelchair Allergies Allergies Allergy/AdvReac Type Severity Reaction Status Date / Time No Known Allergies Allergy Verified 09/19/23 20:15 Home Meds Home Medications Medication Instructions Recorded Confirmed acetaminophen 500 mg tablet 1,000 mg PO Q6H PRN Pain 04/19/22 09/19/23 (Tylenol Extra Strength) omeprazole 20 mg capsule,delayed 20 mg PO DAILY 12/31/22 09/19/23 release primidone 50 mg tablet (Mysoline) 250 mg PO BID 08/17/23 09/19/23 Previous Rx's Medication Instructions Recorded escitalopram oxalate 20 mg tablet 20 mg PO DAILY #90 tabs 03/30/23 (Lexapro) teriparatide 20 mcg/dose (600 20 mcg (0.08 mL) subcut DAILY #2.4 05/12/23 mcg/2.4 mL) subcutaneous pen mL injector (Forteo) amiodarone 200 mg tablet 200 mg PO DAILY #90 tabs 06/04/23 metoprolol succinate 25 mg 25 mg PO DAILY #90 tabs 06/04/23 tablet,extended release 24 hr simvastatin 20 mg tablet 20 mg PO DAILY #90 tabs 07/28/23 clonazepam 0.5 mg tablet 0.25 mg (1/2 x 0.5 mg) PO BID PRN 09/02/23 anxiety #30 tabs ipratropium 0.5 mg-albuterol 3 mg 3 ml inhalation Q4H PRN wheezing 09/02/23 (2.5 mg base)/3 mL nebulization #180 mL soln mirtazapine 7.5 mg tablet 7.5 mg PO HS #90 tabs 09/02/23 nebulizer accessories #1 ea 09/02/23 nebulizer and compressor #1 ea 09/02/23 Results & Data (ED) Vital Signs Vital Signs - 24 hr 09/19/23 16:18 09/19/23 16:21 09/19/23 16:21 Temperature 36.8 C Temperature Source Temporal Artery Scan Pulse Rate 62 Pulse Rate [Apical] 64 Pulse Rate from SpO2 Sensor Respiratory Rate 18 22 Respiratory Effort / Characteristics Non-Labored Spontaneous Non-Labored Spontaneous Respiratory Depth Normal Normal Respiratory Pattern Regular Regular Blood Pressure 123/85 Blood Pressure [Right Arm] 160/92 H Blood Pressure Mean 97 Blood Pressure Mean [Right Arm] 114 Blood Pressure Position Sitting Blood Pressure Position [Right Arm] Sitting Pulse Oximetry 99 95 96 Oxygen Delivery Method Room Air Room Air Room Air Sepsis Recent Fever Within 48 Hours No Sepsis New/Unexplained Change in Mental Status No Sepsis Action Taken by Nursing No Action Required 09/19/23 16:56 09/19/23 16:59 09/19/23 17:00 Temperature Temperature Source Pulse Rate 74 72 72 Pulse Rate [Apical] Pulse Rate from SpO2 Sensor 73 73 Respiratory Rate 23 25 H Respiratory Effort / Characteristics Respiratory Depth Respiratory Pattern Blood Pressure Blood Pressure [Right Arm] Blood Pressure Mean Blood Pressure Mean [Right Arm] Blood Pressure Position Blood Pressure Position [Right Arm] Pulse Oximetry 98 98 Oxygen Delivery Method Room Air Room Air Sepsis Recent Fever Within 48 Hours Sepsis New/Unexplained Change in Mental Status Sepsis Action Taken by Nursing 09/19/23 17:00 09/19/23 17:10 09/19/23 17:20 Temperature Temperature Source Pulse Rate 75 67 67 Pulse Rate [Apical] Pulse Rate from SpO2 Sensor 78 67 68 Respiratory Rate 16 22 20 Respiratory Effort / Characteristics Respiratory Depth Respiratory Pattern Blood Pressure Blood Pressure [Right Arm] Blood Pressure Mean Blood Pressure Mean [Right Arm] Blood Pressure Position Blood Pressure Position [Right Arm] Pulse Oximetry 95 99 98 Oxygen Delivery Method Room Air Room Air Room Air Sepsis Recent Fever Within 48 Hours Sepsis New/Unexplained Change in Mental Status Sepsis Action Taken by Nursing 09/19/23 17:30 09/19/23 17:30 09/19/23 17:45 Temperature Temperature Source Pulse Rate 65 Pulse Rate [Apical] Pulse Rate from SpO2 Sensor 69 Respiratory Rate 19 Respiratory Effort / Characteristics Respiratory Depth Respiratory Pattern Blood Pressure 160/92 H Blood Pressure [Right Arm] Blood Pressure Mean 104 Blood Pressure Mean [Right Arm] Blood Pressure Position Blood Pressure Position [Right Arm] Pulse Oximetry 97 96 Oxygen Delivery Method Room Air Room Air Sepsis Recent Fever Within 48 Hours Sepsis New/Unexplained Change in Mental Status Sepsis Action Taken by Nursing 09/19/23 18:02 09/19/23 18:10 09/19/23 18:17 Temperature Temperature Source Pulse Rate 64 67 Pulse Rate [Apical] 75 Pulse Rate from SpO2 Sensor Respiratory Rate 18 20 25 H Respiratory Effort / Characteristics Non-Labored Respiratory Depth Normal Respiratory Pattern Tachypnea Blood Pressure Blood Pressure [Right Arm] 98/70 L Blood Pressure Mean Blood Pressure Mean [Right Arm] 79 Blood Pressure Position Blood Pressure Position [Right Arm] Lying Pulse Oximetry 95 Oxygen Delivery Method Room Air Sepsis Recent Fever Within 48 Hours Sepsis New/Unexplained Change in Mental Status Sepsis Action Taken by Nursing 09/19/23 18:20 09/19/23 18:30 09/19/23 18:36 Temperature Temperature Source Pulse Rate 71 74 Pulse Rate [Apical] Pulse Rate from SpO2 Sensor 71 73 Respiratory Rate 21 20 Respiratory Effort / Characteristics Respiratory Depth Respiratory Pattern Blood Pressure 98/70 L Blood Pressure [Right Arm] Blood Pressure Mean 78 Blood Pressure Mean [Right Arm] Blood Pressure Position Blood Pressure Position [Right Arm] Pulse Oximetry 99 99 Oxygen Delivery Method Room Air Room Air Sepsis Recent Fever Within 48 Hours Sepsis New/Unexplained Change in Mental Status Sepsis Action Taken by Nursing 09/19/23 18:36 09/19/23 18:40 09/19/23 18:48 Temperature Temperature Source Pulse Rate 74 76 81 Pulse Rate [Apical] Pulse Rate from SpO2 Sensor 79 80 Respiratory Rate 20 20 19 Respiratory Effort / Characteristics Respiratory Depth Respiratory Pattern Blood Pressure Blood Pressure [Right Arm] Blood Pressure Mean Blood Pressure Mean [Right Arm] Blood Pressure Position Blood Pressure Position [Right Arm] Pulse Oximetry 97 98 Oxygen Delivery Method Room Air Room Air Sepsis Recent Fever Within 48 Hours Sepsis New/Unexplained Change in Mental Status Sepsis Action Taken by Nursing 09/19/23 18:48 09/19/23 18:50 09/19/23 18:52 Temperature Temperature Source Pulse Rate 80 Pulse Rate [Apical] Pulse Rate from SpO2 Sensor Respiratory Rate 19 Respiratory Effort / Characteristics Respiratory Depth Respiratory Pattern Blood Pressure 83/62 L 98/72 L Blood Pressure [Right Arm] Blood Pressure Mean 66 80 Blood Pressure Mean [Right Arm] Blood Pressure Position Blood Pressure Position [Right Arm] Pulse Oximetry Oxygen Delivery Method Sepsis Recent Fever Within 48 Hours Sepsis New/Unexplained Change in Mental Status Sepsis Action Taken by Nursing 09/19/23 18:52 09/19/23 18:54 09/19/23 18:54 Temperature Temperature Source Pulse Rate 80 79 Pulse Rate [Apical] Pulse Rate from SpO2 Sensor Respiratory Rate 21 19 Respiratory Effort / Characteristics Respiratory Depth Respiratory Pattern Blood Pressure 104/70 Blood Pressure [Right Arm] Blood Pressure Mean 85 Blood Pressure Mean [Right Arm] Blood Pressure Position Blood Pressure Position [Right Arm] Pulse Oximetry Oxygen Delivery Method Sepsis Recent Fever Within 48 Hours Sepsis New/Unexplained Change in Mental Status Sepsis Action Taken by Nursing 09/19/23 18:58 09/19/23 18:58 09/19/23 19:00 Temperature Temperature Source Pulse Rate 80 79 Pulse Rate [Apical] Pulse Rate from SpO2 Sensor 78 Respiratory Rate 21 20 Respiratory Effort / Characteristics Respiratory Depth Respiratory Pattern Blood Pressure 114/84 Blood Pressure [Right Arm] Blood Pressure Mean 89 Blood Pressure Mean [Right Arm] Blood Pressure Position Blood Pressure Position [Right Arm] Pulse Oximetry 100 Oxygen Delivery Method Room Air Sepsis Recent Fever Within 48 Hours Sepsis New/Unexplained Change in Mental Status Sepsis Action Taken by Nursing 09/19/23 19:00 09/19/23 19:05 09/19/23 19:05 Temperature Temperature Source Pulse Rate 73 Pulse Rate [Apical] Pulse Rate from SpO2 Sensor 74 Respiratory Rate 18 Respiratory Effort / Characteristics Respiratory Depth Respiratory Pattern Blood Pressure 99/58 L 108/69 Blood Pressure [Right Arm] Blood Pressure Mean 87 78 Blood Pressure Mean [Right Arm] Blood Pressure Position Blood Pressure Position [Right Arm] Pulse Oximetry 97 Oxygen Delivery Method Sepsis Recent Fever Within 48 Hours Sepsis New/Unexplained Change in Mental Status Sepsis Action Taken by Nursing 09/19/23 19:30 09/19/23 19:30 09/19/23 19:35 Temperature Temperature Source Pulse Rate 76 Pulse Rate [Apical] Pulse Rate from SpO2 Sensor Respiratory Rate 18 Respiratory Effort / Characteristics Respiratory Depth Respiratory Pattern Blood Pressure 82/56 L 86/55 L Blood Pressure [Right Arm] Blood Pressure Mean 61 64 Blood Pressure Mean [Right Arm] Blood Pressure Position Blood Pressure Position [Right Arm] Pulse Oximetry Oxygen Delivery Method Sepsis Recent Fever Within 48 Hours Sepsis New/Unexplained Change in Mental Status Sepsis Action Taken by Nursing 09/19/23 19:35 09/19/23 19:40 09/19/23 19:40 Temperature Temperature Source Pulse Rate 73 69 Pulse Rate [Apical] Pulse Rate from SpO2 Sensor Respiratory Rate 16 15 Respiratory Effort / Characteristics Respiratory Depth Respiratory Pattern Blood Pressure 96/61 L Blood Pressure [Right Arm] Blood Pressure Mean 78 Blood Pressure Mean [Right Arm] Blood Pressure Position Blood Pressure Position [Right Arm] Pulse Oximetry Oxygen Delivery Method Sepsis Recent Fever Within 48 Hours Sepsis New/Unexplained Change in Mental Status Sepsis Action Taken by Nursing 09/19/23 19:45 09/19/23 19:45 09/19/23 19:50 Temperature Temperature Source Pulse Rate 71 69 Pulse Rate [Apical] Pulse Rate from SpO2 Sensor Respiratory Rate 15 17 Respiratory Effort / Characteristics Respiratory Depth Respiratory Pattern Blood Pressure 97/69 L Blood Pressure [Right Arm] Blood Pressure Mean 85 Blood Pressure Mean [Right Arm] Blood Pressure Position Blood Pressure Position [Right Arm] Pulse Oximetry Oxygen Delivery Method Sepsis Recent Fever Within 48 Hours Sepsis New/Unexplained Change in Mental Status Sepsis Action Taken by Nursing 09/19/23 19:50 09/19/23 19:55 09/19/23 19:55 Temperature Temperature Source Pulse Rate 70 Pulse Rate [Apical] Pulse Rate from SpO2 Sensor Respiratory Rate 15 Respiratory Effort / Characteristics Respiratory Depth Respiratory Pattern Blood Pressure 102/63 103/66 Blood Pressure [Right Arm] Blood Pressure Mean 73 75 Blood Pressure Mean [Right Arm] Blood Pressure Position Blood Pressure Position [Right Arm] Pulse Oximetry Oxygen Delivery Method Sepsis Recent Fever Within 48 Hours Sepsis New/Unexplained Change in Mental Status Sepsis Action Taken by Nursing 09/19/23 20:00 09/19/23 20:00 09/19/23 20:05 Temperature Temperature Source Pulse Rate 67 Pulse Rate [Apical] Pulse Rate from SpO2 Sensor Respiratory Rate 14 Respiratory Effort / Characteristics Respiratory Depth Respiratory Pattern Blood Pressure 103/66 98/66 L Blood Pressure [Right Arm] Blood Pressure Mean 80 85 Blood Pressure Mean [Right Arm] Blood Pressure Position Blood Pressure Position [Right Arm] Pulse Oximetry Oxygen Delivery Method Sepsis Recent Fever Within 48 Hours Sepsis New/Unexplained Change in Mental Status Sepsis Action Taken by Nursing 09/19/23 20:05 09/19/23 20:10 09/19/23 20:10 Temperature Temperature Source Pulse Rate 69 69 Pulse Rate [Apical] Pulse Rate from SpO2 Sensor Respiratory Rate 22 13 Respiratory Effort / Characteristics Respiratory Depth Respiratory Pattern Blood Pressure 122/74 Blood Pressure [Right Arm] Blood Pressure Mean 92 Blood Pressure Mean [Right Arm] Blood Pressure Position Blood Pressure Position [Right Arm] Pulse Oximetry Oxygen Delivery Method Sepsis Recent Fever Within 48 Hours Sepsis New/Unexplained Change in Mental Status Sepsis Action Taken by Nursing 09/19/23 20:15 09/19/23 20:15 09/19/23 20:20 Temperature Temperature Source Pulse Rate 68 70 Pulse Rate [Apical] Pulse Rate from SpO2 Sensor Respiratory Rate 14 19 Respiratory Effort / Characteristics Respiratory Depth Respiratory Pattern Blood Pressure 112/68 Blood Pressure [Right Arm] Blood Pressure Mean 90 Blood Pressure Mean [Right Arm] Blood Pressure Position Blood Pressure Position [Right Arm] Pulse Oximetry Oxygen Delivery Method Sepsis Recent Fever Within 48 Hours Sepsis New/Unexplained Change in Mental Status Sepsis Action Taken by Nursing 09/19/23 20:20 09/19/23 20:25 09/19/23 20:25 Temperature Temperature Source Pulse Rate 67 Pulse Rate [Apical] Pulse Rate from SpO2 Sensor Respiratory Rate 12 Respiratory Effort / Characteristics Respiratory Depth Respiratory Pattern Blood Pressure 112/67 122/70 Blood Pressure [Right Arm] Blood Pressure Mean 92 82 Blood Pressure Mean [Right Arm] Blood Pressure Position Blood Pressure Position [Right Arm] Pulse Oximetry Oxygen Delivery Method Sepsis Recent Fever Within 48 Hours Sepsis New/Unexplained Change in Mental Status Sepsis Action Taken by Nursing 09/19/23 20:30 09/19/23 20:30 09/19/23 20:35 Temperature Temperature Source Pulse Rate 72 Pulse Rate [Apical] Pulse Rate from SpO2 Sensor Respiratory Rate 15 Respiratory Effort / Characteristics Respiratory Depth Respiratory Pattern Blood Pressure 114/64 127/71 Blood Pressure [Right Arm] Blood Pressure Mean 90 98 Blood Pressure Mean [Right Arm] Blood Pressure Position Blood Pressure Position [Right Arm] Pulse Oximetry Oxygen Delivery Method Sepsis Recent Fever Within 48 Hours Sepsis New/Unexplained Change in Mental Status Sepsis Action Taken by Nursing 09/19/23 20:35 09/19/23 20:40 09/19/23 20:40 Temperature Temperature Source Pulse Rate 71 68 Pulse Rate [Apical] Pulse Rate from SpO2 Sensor Respiratory Rate 10 L 14 Respiratory Effort / Characteristics Respiratory Depth Respiratory Pattern Blood Pressure 130/71 Blood Pressure [Right Arm] Blood Pressure Mean 96 Blood Pressure Mean [Right Arm] Blood Pressure Position Blood Pressure Position [Right Arm] Pulse Oximetry Oxygen Delivery Method Sepsis Recent Fever Within 48 Hours Sepsis New/Unexplained Change in Mental Status Sepsis Action Taken by Nursing 09/19/23 20:45 09/19/23 20:45 09/19/23 20:50 Temperature Temperature Source Pulse Rate 68 69 Pulse Rate [Apical] Pulse Rate from SpO2 Sensor Respiratory Rate 12 12 Respiratory Effort / Characteristics Respiratory Depth Respiratory Pattern Blood Pressure 125/81 Blood Pressure [Right Arm] Blood Pressure Mean 99 Blood Pressure Mean [Right Arm] Blood Pressure Position Blood Pressure Position [Right Arm] Pulse Oximetry Oxygen Delivery Method Sepsis Recent Fever Within 48 Hours Sepsis New/Unexplained Change in Mental Status Sepsis Action Taken by Nursing 09/19/23 20:50 09/19/23 20:55 09/19/23 20:55 Temperature Temperature Source Pulse Rate 69 Pulse Rate [Apical] Pulse Rate from SpO2 Sensor Respiratory Rate 16 Respiratory Effort / Characteristics Respiratory Depth Respiratory Pattern Blood Pressure 126/74 133/75 Blood Pressure [Right Arm] Blood Pressure Mean 107 94 Blood Pressure Mean [Right Arm] Blood Pressure Position Blood Pressure Position [Right Arm] Pulse Oximetry Oxygen Delivery Method Sepsis Recent Fever Within 48 Hours Sepsis New/Unexplained Change in Mental Status Sepsis Action Taken by Nursing 09/19/23 21:00 09/19/23 21:00 09/19/23 21:05 Temperature Temperature Source Pulse Rate 69 Pulse Rate [Apical] Pulse Rate from SpO2 Sensor Respiratory Rate 13 Respiratory Effort / Characteristics Respiratory Depth Respiratory Pattern Blood Pressure 136/76 143/79 H Blood Pressure [Right Arm] Blood Pressure Mean 97 96 Blood Pressure Mean [Right Arm] Blood Pressure Position Blood Pressure Position [Right Arm] Pulse Oximetry Oxygen Delivery Method Sepsis Recent Fever Within 48 Hours Sepsis New/Unexplained Change in Mental Status Sepsis Action Taken by Nursing 09/19/23 21:05 09/19/23 21:06 09/19/23 21:10 Temperature Temperature Source Pulse Rate 70 70 77 Pulse Rate [Apical] Pulse Rate from SpO2 Sensor Respiratory Rate 12 16 Respiratory Effort / Characteristics Respiratory Depth Respiratory Pattern Blood Pressure Blood Pressure [Right Arm] Blood Pressure Mean Blood Pressure Mean [Right Arm] Blood Pressure Position Blood Pressure Position [Right Arm] Pulse Oximetry Oxygen Delivery Method Sepsis Recent Fever Within 48 Hours Sepsis New/Unexplained Change in Mental Status Sepsis Action Taken by Nursing 09/19/23 21:10 09/19/23 21:15 09/19/23 21:15 Temperature Temperature Source Pulse Rate 76 Pulse Rate [Apical] Pulse Rate from SpO2 Sensor Respiratory Rate 13 Respiratory Effort / Characteristics Respiratory Depth Respiratory Pattern Blood Pressure 142/84 H 138/78 Blood Pressure [Right Arm] Blood Pressure Mean 117 114 Blood Pressure Mean [Right Arm] Blood Pressure Position Blood Pressure Position [Right Arm] Pulse Oximetry Oxygen Delivery Method Sepsis Recent Fever Within 48 Hours Sepsis New/Unexplained Change in Mental Status Sepsis Action Taken by Nursing 09/19/23 21:20 09/19/23 21:20 09/19/23 21:25 Temperature Temperature Source Pulse Rate 78 80 Pulse Rate [Apical] Pulse Rate from SpO2 Sensor Respiratory Rate 16 13 Respiratory Effort / Characteristics Respiratory Depth Respiratory Pattern Blood Pressure 139/76 Blood Pressure [Right Arm] Blood Pressure Mean 92 Blood Pressure Mean [Right Arm] Blood Pressure Position Blood Pressure Position [Right Arm] Pulse Oximetry Oxygen Delivery Method Sepsis Recent Fever Within 48 Hours Sepsis New/Unexplained Change in Mental Status Sepsis Action Taken by Nursing 09/19/23 21:25 09/19/23 21:30 09/19/23 21:30 Temperature Temperature Source Pulse Rate 81 Pulse Rate [Apical] Pulse Rate from SpO2 Sensor 81 Respiratory Rate 14 Respiratory Effort / Characteristics Respiratory Depth Respiratory Pattern Blood Pressure 94/71 L 112/69 Blood Pressure [Right Arm] Blood Pressure Mean 75 79 Blood Pressure Mean [Right Arm] Blood Pressure Position Blood Pressure Position [Right Arm] Pulse Oximetry 93 Oxygen Delivery Method Sepsis Recent Fever Within 48 Hours Sepsis New/Unexplained Change in Mental Status Sepsis Action Taken by Nursing Laboratory Data 09/19/23 16:35 09/19/23 16:35 Lab Results 09/19/23 09/19/23 Range/Units 16:35 19:33 WBC 6.72 (4.8-10.8) K/ul RBC 4.04 L (4.20-5.40) M/uL Hgb 12.3 (12.0-16.0) g/dl Hct 37.7 (37.0-47.0) % MCV 93.3 (80.0-100.0) fL MCH 30.4 (25.0-34.0) pg MCHC 32.6 (32.0-36.0) g/dL RDW Std Deviation 49.8 H (36.4-46.3) fL RDW Coeff of Harish 14.6 H (11.5-14.5) % Plt Count 387 (130-400) K/uL MPV 9.4 (9.4-12.4) fL Immature Gran % (Auto) 0.4 % Neut % (Auto) 53.8 % Lymph % (Auto) 35.6 % [place] % (Auto) 6.5 % Eos % (Auto) 3.1 % Baso % (Auto) 0.6 % Neut # (Auto) 3.61 (1.40-6.50) K/uL Lymph # (Auto) 2.39 (1.20-3.40) K/uL [place] # (Auto) 0.44 (0.11-0.59) K/uL Eos # (Auto) 0.21 (0.00-0.50) K/uL Baso # (Auto) 0.04 (0.00-0.20) K/uL Immature Gran # (Auto) 0.03 (0.01-0.20) K/uL PT 10.3 (9.0-12.0) Seconds INR 0.9 (0.9-1.1) Sodium 136 (136-145) mmol/L Potassium 4.2 (3.5-5.1) mmol/L Chloride 99 (98-107) mmol/L Carbon Dioxide 28 (21-32) mmol/L Anion Gap 9 (3-11) BUN 19 (6-23) mg/dl Creatinine 0.71 (0.6-1.2) mg/dl Est Cr Clr Drug Dosing Not Reportable Est GFR ( Amer) 99.3 ml/min Est GFR (Non-Af Amer) 85.7 ml/min BUN/Creatinine Ratio 26.8 H (10-20) Glucose 81 (70-99(Fasting)) mg/dl Lactate 1.3 4.6 H* (0.4-2.0) mmol/L Calcium 9.4 (8.6-10.3) mg/dl Total Bilirubin 0.2 (0.2-1.0) mg/dl AST 14 (13-39) U/L ALT 11 (7-52) U/L Alkaline Phosphatase 83 (34-104) U/L Troponin I High Sens 4.2 (0-14) pg/ml Total Protein 7.8 (6.0-8.3) gm/dl Albumin 4.1 (3.4-5.0) gm/dl Globulin 3.7 (2.5-4.0) gm/dl Albumin/Globulin Ratio 1.1 (0.9-2) Lipase 85 H (11-82) U/L Administered Medications Discontinued Medications Fentanyl Citrate (Fentanyl Citrate Pf 100 Mcg/2 Ml Vial) 50 mcg IV NOW STA Stop: 09/19/23 16:38 Last Admin: 09/19/23 17:07 Dose: 50 mcg Documented By: KIRTI Hydromorphone HCl (Hydromorphone Inj 0.5 Mg/0.5 Ml Syr) 0.5 mg IV NOW STA Stop: 09/19/23 18:31 Last Admin: 09/19/23 18:38 Dose: 0.5 mg Documented By: KIRTI Hydromorphone HCl (Hydromorphone Inj 0.5 Mg/0.5 Ml Syr) 0.5 mg IV NOW STA Stop: 09/19/23 18:42 Last Admin: 09/19/23 18:56 Dose: 0.5 mg Documented By: LYDIA Sodium Chloride (Nss) 1,000 mls @ 999 mls/hr IV .Q1H1M ONE Stop: 09/19/23 17:37 Last Infusion: 09/19/23 19:09 Dose: Infused Documented By: Admin: 09/19/23 17:07 Dose: 999 mls/hr Documented By: KR Sodium Chloride (Nss) 1,000 mls @ 999 mls/hr IV .Q1H1M ONE Stop: 09/19/23 19:41 Last Infusion: 09/19/23 20:28 Dose: Infused Documented By: Admin: 09/19/23 18:57 Dose: 999 mls/hr Documented By: ML Sodium Chloride (Nss) 2,000 mls @ 999 mls/hr IV .Q2H1M ONE Stop: 09/19/23 20:53 Last Infusion: 09/19/23 22:01 Dose: Infused Documented By: Admin: 09/19/23 19:34 Dose: 999 mls/hr Documented By: ACC Piperacillin Sod/Tazobactam (Sod 4.5 gm/ Dextrose) 100 mls @ 200 mls/hr IV NOW ONE; Protocol Stop: 09/19/23 21:29 Last Infusion: 09/19/23 22:01 Dose: Infused Documented By: Admin: 09/19/23 21:23 Dose: 200 mls/hr Documented By: ACC Ioversol (Optiray 320 500ml) 84 ml IV ONCE ONE Stop: 09/19/23 17:53 Last Admin: 09/19/23 17:53 Dose: 84 ml Documented By: KARIS Morphine Sulfate (Morphine Sulfate 2 Mg/Ml Carp) 2 mg IV NOW STA Stop: 09/19/23 19:46 Last Admin: 09/19/23 20:13 Dose: 2 mg Documented By: ACC Morphine Sulfate (Morphine Sulfate 4 Mg/Ml 1 Ml Carp\Vial) 4 mg IV NOW STA Stop: 09/19/23 21:15 Last Admin: 09/19/23 21:19 Dose: 4 mg Documented By: ACC Ondansetron HCl (Ondansetron Inj 2 Mg/Ml 2 Ml Vial) 4 mg IV NOW STA Stop: 09/19/23 16:38 Last Admin: 09/19/23 17:07 Dose: 4 mg Documented By: KR Ondansetron HCl (Ondansetron Inj 2 Mg/Ml 2 Ml Vial) 4 mg IV NOW STA Stop: 09/19/23 18:42 Last Admin: 09/19/23 18:57 Dose: 4 mg Documented By: ML Imaging Data Radiologist's Impression: Abdomen/Pelvis CT 09/19/23 16:[address] WITH IV CONTRAST CT DOSE: 249.62 mGy.cm HISTORY: Acute mid abdominal pain mid-abdominal pain s/p SBO surgery TECHNIQUE: Multiaxial CT images of the abdomen and pelvis were performed following the IV administration of 84 cc of Optiray, A dose lowering technique was utilized adhering to the principles of ALARA. COMPARISON STUDY: 08/16/2023 FINDINGS: Median sternotomy. Mild patchy bibasilar groundglass densities are likely infectious or inflammatory. There is no free air. Unremarkable spleen, pancreas and right adrenal gland. Borderline pancreatic ductal dilation redemonstrated measuring up to 4 mm. Unchanged nodular left adrenal gland thickening. The liver is within normal limits. Filling defects noted within the superior mesenteric and portal veins favoring mixing artifact. Unremarkable kidneys. There are a few probable cysts of the kidneys which are mostly subcentimeter. Moderate bladder wall thickening which is partially decompressed. Extensive atherosclerosis of the aorta with multifocal stenoses of the mesenteric and renal arteries. No lymphadenopathy identified. Moderate-sized hiatal hernia. Moderate abdominal pelvic ascites has progressed. Postoperative changes compatible subtotal colectomy with prior ileostomy takedown. There is twisting of the mesentery with high-grade small bowel obstruction. Fluid and stool-filled loops of small bowel measure up to approximately 4.5 cm. Several loops of small bowel demonstrate circumferential wall thickening. Large duodenal diverticulum. Transition point is noted within the central abdomen with twisting of the mesentery, image 1:30 series 3. There is an apparent additional transition point also seen on image 130 is body wall edema.. Prominent mesenteric edema. L1 compression deformity with kyphoplasty. IMPRESSION: 1. High-grade small bowel obstruction with twisting of the mesentery and at least two transition points suggestive of a closed loop obstruction. Surgical consultation is needed. 2. Mesenteric and body wall edema with moderate ascites. 3. Prior subtotal colectomy. 4. Extensive atherosclerosis. 5. Probable mixing artifact within the superior mesenteric and portal veins. Thrombus considered less likely. Findings could be correlated with ultrasound if of further clinical concern. Findings were discussed with Dr. Rivera on 09/19/2023 at 6:35 PM ACT 112: Negative or not required by law. The above report was generated using voice recognition software. It may contain grammatical, syntax or spelling errors. Electronically signed by: Carl Beckwith M.D. 09/19/2023 6:37 PM Chest X-Ray 09/19/23 19:35 XR chest 1V portable HISTORY: 72 years-old Female ng placement acute bowel obstruction COMPARISON: CT of same day TECHNIQUE: AP view of the chest FINDINGS: Cardiomediastinal and hilar silhouettes are unchanged. Median sternotomy with atherosclerosis of the aorta. Chronic interstitial coarsening of the lungs. No pneumothorax, pleural effusion or overt pulmonary edema. Status post placement of an enteric tube with distal tip coiled within the hiatal hernia positioned superiorly. Dilated loops of small bowel in the upper abdomen. No acute fracture. IMPRESSION: Hiatal hernia contains a malpositioned enteric tube. Repositioning with follow-up imaging is needed. ACT 112: Negative or not required by law. The above report was generated using voice recognition software. It may contain grammatical, syntax or spelling errors. Electronically signed by: Carl Beckwith M.D. 09/19/2023 7:52 PM Chest X-Ray 09/19/23 19:45 XR chest 1V portable HISTORY: 72 years-old Female NG tube confirmation status post placement of an enteric tube COMPARISON: Chest radiograph of same day at 7:34 PM TECHNIQUE: AP view of the chest FINDINGS: Cardiomediastinal and hilar silhouettes are unchanged. Median sternotomy with atherosclerosis of the aorta. Chronic interstitial coarsening of the lungs. No pneumothorax, pleural effusion or overt pulmonary edema. Repositioned enteric tube is noted coiled within the mid esophagus with distal tip projected superiorly at the level of the superior most sternotomy wire. Hiatal hernia. Dilated loops of small bowel in the upper abdomen. No acute fracture. IMPRESSION: 1. Repositioned enteric tube is coiled within the mid esophagus with distal tip projected superiorly. Repositioning with follow-up imaging is needed. 2. Hiatal hernia with small bowel obstruction. ACT 112: Negative or not required by law. The above report was generated using voice recognition software. It may contain grammatical, syntax or spelling errors. Electronically signed by: Carl Beckwith M.D. 09/19/2023 8:16 PM Discharge Plan Visit Data Chief Complaint: Abdominal Pain Stated Complaint: ABD PAIN S/P ABD SURGERY BOWEL OBSTRUCTION ED Provider: Cassandra Rivera Discharge Problem: SBO (small bowel obstruction), Abdominal pain, Nausea Forms Stand Alone Forms: My [facility] Prescriptions Prescriptions: No Action Forteo 20 mcg/dose (600mcg/2.4mL) pen injector 20 mcg subcut DAILY Qty: 2.4 3RF Rx Instructions: 09/19/23 : THIS MEDICNE IS CURRENTLY ON HOLD. amiodarone 200 mg tablet 200 mg PO DAILY Qty: 90 3RF Rx Instructions: take two tablets daily for 10 days then 1 tablet daily metoprolol succinate 25 mg tablet extended release 24 hr 25 mg PO DAILY Qty: 90 3RF simvastatin 20 mg tablet 20 mg PO DAILY Qty: 90 2RF omeprazole 20 mg capsule,delayed release(DR/EC) 20 mg PO DAILY escitalopram oxalate [Lexapro] 20 mg tablet 20 mg PO DAILY Qty: 90 3RF (DME) nebulizer and compressor Device See Rx Instructions .ROUTE .MEDSUPPLY Qty: 1 0RF Rx Instructions: As directed ipratropium-albuterol 0.5 mg-3 mg(2.5 mg base)/3 mL solution for nebulization 3 ml inhalation Q4H PRN (Reason: wheezing) Qty: 180 1RF (DME) nebulizer accessories Kit See Rx Instructions .ROUTE .MEDSUPPLY Qty: 1 0RF Rx Instructions: As directed mirtazapine 7.5 mg tablet 7.5 mg PO HS Qty: 90 3RF clonazepam 0.5 mg tablet 0.25 mg PO BID PRN (Reason: anxiety) Qty: 30 2RF acetaminophen [Tylenol Extra Strength] 500 mg Tablet 1,000 mg PO Q6H PRN (Reason: Pain) primidone [Mysoline] 50 mg tablet 250 mg PO BID Rx Instructions: This is the dose daughter says she is on. Referrals Referrals: Ricardo Turcios, [Primary Care Provider] -
[2023-09-19 16:52] LABS: Basophils # (auto) 0.04 K/uL (0.00-0.20); Basophils % (auto) 0.6 %; Eosinophils # (auto) 0.21 K/uL (0.00-0.50); Eosinophils % (auto) 3.1 %; Hematocrit (blood only) 37.7 % (37.0-47.0); Hemoglobin 12.3 g/dl (12.0-16.0); Immature Granulocytes # (auto) 0.03 K/uL (0.01-0.20); Immature Granulocytes % (auto) 0.4 %; Lymphocytes # (auto) 2.39 K/uL (1.20-3.40); Lymphocytes % (auto) 35.6 %; Mean Corpuscular Hemoglobin 30.4 pg (25.0-34.0); Mean Corpuscular Hgb Conc 32.6 g/dL (32.0-36.0); Mean Corpuscular Volume 93.3 fL (80.0-100.0); Mean Platelet Volume 9.4 fL (9.4-12.4); Monocytes # (auto) 0.44 K/uL (0.11-0.59); Monocytes % (auto) 6.5 %; Neutrophils # (auto) 3.61 K/uL (1.40-6.50); Neutrophils % (auto) 53.8 %; Platelet Count 387 K/uL (130-400); RDW Coefficient of Variation 14.6 % (11.5-14.5); RDW Standard Deviation 49.8 fL (36.4-46.3); Red Blood Count 4.04 M/uL (4.20-5.40); White Blood Count 6.72 K/ul (4.8-10.8)
[2023-09-19] MEDS: ONDANSETRON INJ 2 MG/ML 2 ML VIAL IV STA ×2 (17:07→18:57)
[2023-09-19] MEDS: fentaNYL citrate PF 100 MCG/2 ML VIAL IV STA (17:07)
[2023-09-19] MEDS: SODIUM CHLORIDE 0.9% 1,000 ML IV ONE ×2 (17:07→18:57)
[2023-09-19 17:08] LABS: Alanine Aminotransferase 11 U/L (7-52); Albumin Globulin Ratio 1.1 (0.9-2); Albumin Level 4.1 gm/dl (3.4-5.0); Alkaline Phosphatase 83 U/L (34-104); Anion Gap 9 (3-11); Aspartate Aminotransferase 14 U/L (13-39); BUN Creatinine Ratio 26.8 (10-20); Bilirubin,Total 0.2 mg/dl (0.2-1.0); Blood Urea Nitrogen 19 mg/dl (6-23); Calcium 9.4 mg/dl (8.6-10.3); Carbon Dioxide 28 mmol/L (21-32); Chloride 99 mmol/L (98-107); Est GFR (African American) 99.3 ml/min; Est GFR (Non-African American) 85.7 ml/min; Globulin 3.7 gm/dl (2.5-4.0); Glucose 81 mg/dl (70-99(Fasting)); Lipase 85 U/L (11-82); Potassium 4.2 mmol/L (3.5-5.1); Sodium 136 mmol/L (136-145); Total Protein 7.8 gm/dl (6.0-8.3)
[2023-09-19 17:15] LABS: INR 0.9 (0.9-1.1); Prothrombin Time 10.3 Seconds (9.0-12.0); Troponin I High Sensitivity 4.2 pg/ml (0-14)
[2023-09-19] MEDS: OPTIRAY 320 500ml IV ONE (17:53)
[2023-09-19] MEDS: HYDROmorphone INJ 0.5 MG/0.5 ML SYR IV STA ×2 (18:38→18:56)
--- NOTE | 2023-09-19 18:40 | CT Scan Report ---
ABDOMEN AND PELVIS CT WITH IV CONTRAST CT DOSE: 249.62 mGy.cm HISTORY: Acute mid abdominal pain mid-abdominal pain s/p SBO surgery TECHNIQUE: Multiaxial CT images of the abdomen and pelvis were performed following the IV administrat ion of 84 cc of Optiray, A dose lowering technique was utilized adhering to the principles of ALARA. COMPARISON STUDY: 08/16/2023 FINDINGS: Median sternotomy. Mild patchy bibasilar groundglass densities are likely infectious or inf lammatory. There is no free air. Unremarkable spleen, pancreas and right adrenal gland. Borderline pa ncreatic ductal dilation redemonstrated measuring up to 4 mm. Unchanged nodular left adrenal gland th ickening. The liver is within normal limits. Filling defects noted within the superior mesenteric and portal veins favoring mixing artifact. Unremarkable kidneys. There are a few probable cysts of the kidneys which are mostly subcentimeter. M oderate bladder wall thickening which is partially decompressed. Extensive atherosclerosis of the aor ta with multifocal stenoses of the mesenteric and renal arteries. No lymphadenopathy identified. Moderate-sized hiatal hernia. Moderate abdominal pelvic ascites has progressed. Postoperative changes compatible subtotal colectomy with prior ileostomy takedown. There is twisting of the mesentery with high-grade small bowel obstruction. Fluid and stool-filled loops of small bowel measure up to approx imately 4.5 cm. Several loops of small bowel demonstrate circumferential wall thickening. Large duode nal diverticulum. Transition point is noted within the central abdomen with twisting of the mesentery , image 1:30 series 3. There is an apparent additional transition point also seen on image 130 is bod y wall edema.. Prominent mesenteric edema. L1 compression deformity with kyphoplasty. IMPRESSION: 1. High-grade small bowel obstruction with twisting of the mesentery and at least two transition poin ts suggestive of a closed loop obstruction. Surgical consultation is needed. 2. Mesenteric and body wall edema with moderate ascites. 3. Prior subtotal colectomy. 4. Extensive atherosclerosis. 5. Probable mixing artifact within the superior mesenteric and portal veins. Thrombus considered less likely. Findings could be correlated with ultrasound if of further clinical concern. Findings were discussed with Dr. Rivera on 09/19/2023 at 6:35 PM ACT 112: Negative or not required by law. The above report was generated using voice recognition software. It may contain grammatical, syntax o r spelling errors. Electronically signed by: Carl Beckwith M.D. 09/19/2023 6:37 PM
[2023-09-19] MEDS: SODIUM CHLORIDE 0.9% 2,000 ML IV ONE (19:34)
--- NOTE | 2023-09-19 19:53 | XRay Report ---
XR chest 1V portable HISTORY: 72 years-old Female ng placement acute bowel obstruction COMPARISON: CT of same day TECHNIQUE: AP view of the chest FINDINGS: Cardiomediastinal and hilar silhouettes are unchanged. Median sternotomy with atherosclerosis of the aorta. Chronic interstitial coarsening of the lungs. No pneumothorax, pleural effusion or overt pulmo nary edema. Status post placement of an enteric tube with distal tip coiled within the hiatal hernia positioned superiorly. Dilated loops of small bowel in the upper abdomen. No acute fracture. IMPRESSION: Hiatal hernia contains a malpositioned enteric tube. Repositioning with follow-up imaging is needed. ACT 112: Negative or not required by law. The above report was generated using voice recognition software. It may contain grammatical, syntax o r spelling errors. Electronically signed by: Carl Beckwith M.D. 09/19/2023 7:52 PM
[2023-09-19] MEDS: MoRPHine SULFATE 2 MG/ML CARP IV STA (20:13)
--- NOTE | 2023-09-19 20:17 | XRay Report ---
XR chest 1V portable HISTORY: 72 years-old Female NG tube confirmation status post placement of an enteric tube COMPARISON: Chest radiograph of same day at 7:34 PM TECHNIQUE: AP view of the chest FINDINGS: Cardiomediastinal and hilar silhouettes are unchanged. Median sternotomy with atherosclerosis of the aorta. Chronic interstitial coarsening of the lungs. No pneumothorax, pleural effusion or overt pulmo nary edema. Repositioned enteric tube is noted coiled within the mid esophagus with distal tip projec luisana superiorly at the level of the superior most sternotomy wire. Hiatal hernia. Dilated loops of sma ll bowel in the upper abdomen. No acute fracture. IMPRESSION: 1. Repositioned enteric tube is coiled within the mid esophagus with distal tip projected superiorly. Repositioning with follow-up imaging is needed. 2. Hiatal hernia with small bowel obstruction. ACT 112: Negative or not required by law. The above report was generated using voice recognition software. It may contain grammatical, syntax o r spelling errors. Electronically signed by: Carl Beckwith M.D. 09/19/2023 8:16 PM
--- NOTE | 2023-09-19 20:30 | History & Physical Report ---
Date of Service September 19, 2023 Assessment & Plan (1) Small bowel obstruction: Plan: post-op bowel obstruction AF VSS satble no peritoneal signs normal WBC and lactate level of 1.4 NG decompression repeat labs in AM History of Present Illness Primary Care Provider: Ricardo Turcios DO This is a 72YO with acute abdominal pain. She had a exploratory laparotomy for a small bowel obstruction with adhesive band which was taken down at [place]. She did well postop until today when she developed a sudden onset of significant abdominal pain around her umbilicus. She had normal bowel function today. She reports nausea but no vomiting. She denies fevers, chills, dysuria, any other constitutional symptoms. CT scan done in the ED shows significant small bowel obstruction with a possible closed-loop obstruction. She has a normal white count, normal lactate, and she is hemodynamically stable with no signs of ischemic bowel. Allergies Allergy/AdvReac Type Severity Reaction Status Date / Time No Known Allergies Allergy Verified 09/19/23 20:15 Home Medications Medication Instructions Recorded Confirmed Type acetaminophen 500 mg tablet 1,000 mg PO Q6H PRN Pain 04/19/22 09/19/23 History (Tylenol Extra Strength) omeprazole 20 mg capsule,delayed 20 mg PO DAILY 12/31/22 09/18/23 History release escitalopram oxalate 20 mg tablet 20 mg PO DAILY #90 tabs 03/30/23 09/19/23 Rx (Lexapro) teriparatide 20 mcg/dose (600 20 mcg (0.08 mL) subcut DAILY #2.4 05/12/23 09/18/23 Rx mcg/2.4 mL) subcutaneous pen mL injector (Forteo) amiodarone 200 mg tablet 200 mg PO DAILY #90 tabs 06/04/23 09/19/23 Rx metoprolol succinate 25 mg 25 mg PO DAILY #90 tabs 06/04/23 09/19/23 Rx tablet,extended release 24 hr simvastatin 20 mg tablet 20 mg PO DAILY #90 tabs 07/28/23 09/18/23 Rx primidone 50 mg tablet (Mysoline) 250 mg PO BID 08/17/23 09/18/23 History nicotine 21 mg/24 hr daily 21 mg transdermal QAM #1 ea 08/20/23 09/18/23 Rx transdermal patch (Nicoderm CQ) clonazepam 0.5 mg tablet 0.25 mg (1/2 x 0.5 mg) PO BID PRN 09/02/23 09/19/23 Rx anxiety #30 tabs ipratropium 0.5 mg-albuterol 3 mg 3 ml inhalation Q4H PRN wheezing 09/02/23 09/19/23 Rx (2.5 mg base)/3 mL nebulization #180 mL soln mirtazapine 7.5 mg tablet 7.5 mg PO HS #90 tabs 09/02/23 09/19/23 Rx nebulizer accessories #1 ea 09/02/23 09/18/23 Rx nebulizer and compressor #1 ea 09/02/23 09/18/23 Rx Past Med/Surg History Medical History (Updated 09/02/23 @ 13:36 by Ricardo Turcios DO) Symptomatic PVCs Osteoporosis Crohn's colitis Non-healing open wound of toe Failure of rotator cuff repair Tobacco abuse Hypokalemia HTN (hypertension) Crohns disease CAD (coronary artery disease) 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, [facility]: [facility] to LAD, SARIKA to RCA, saphenous vein graft to ramus intermedius, saphenous vein graft to om 2 Left shoulder pain Diarrhea Hypercholesterolemia Surgical History H/O ileostomy History of coronary artery bypass graft Family History Sister Breast cancer Colorectal cancer Mother Colorectal cancer Anxiety Myocardial infarction Father Myocardial infarction Other Cancer Heart disease Hypertension Denies family history of Ovarian cancer Social History Smoking Status: Former smoker Tobacco Type: Cigarettes Cigarettes Per Day: 10; Second Hand Exposure: No; Do You Dip or Chew Tobacco: No; Hx Alcohol Use: Yes Alcohol type: beer and wine Hx Substance Use: No Preferred Language: Maldivian Communication Ability: Effective Memorial Counselor Required: No Beliefs That Will Affect Care: None marital status: / Current Living Situation: Alone and Family Current Living Situation Comment: Has been Ill and is staying with daughter current occupational status: retired Feels Safe at Home: Yes Childhood Exposure to Second-Hand Smoke: No Diet: regular caffeine: Yes Dental Care, Regularly: Yes Physical Activity Frequency: 3-4 Times per Week Seatbelt Use: always Sunscreen Use: Yes Assistive Devices: Walker and Wheelchair Review of Systems Constitutional: + anorexia; no fever and no chills Eyes: no problem reported Ear, Nose, Mouth, Throat: no problem reported Respiratory: no cough and no dyspnea Cardiovascular: no chest pain Gastrointestinal: + abdominal pain and + nausea; no vomiti ng Genitourinary: no dysuria Musculoskeletal: no back pain Integumentary: no problem reported Neurologic: no localized weakness and no generalized weakness Psychiatric: no behavioral changes Endocrine: no fatigue Hematologic / Lymphatic: no easy bleeding and no easy bruising Physical Exam Constitutional: + thin Eyes: PERRL, conjunctivae normal, anicteric sclerae ENMT: external ear and nose normal, oropharynx normal Neck: trachea midline Respiratory: normal respiratory effort, lungs clear to auscultation Cardiovascular: RRR, no murmur, no edema Gastrointestinal (Abdomen): Inspection/Auscultation: abdomen normal to inspection, + abdomen distended and normal bowel sounds Percussion/Palpation: + abdomen tender and abdomen soft; no guarding and abdomen not rigid Musculoskeletal: Head/Neck/Chest: normocephalic and head atraumatic Skin: no rashes, warm and dry Psychiatric: Orientation: alert and oriented x 3 Results & Data Results & Data Vital Signs (Past 12 Hours) Vital Signs Temp Pulse Pulse Resp BP BP Pulse Ox 09/19/23 19:05 73 18 97 09/19/23 19:05 108/69 09/19/23 19:00 99/58 L 09/19/23 19:00 79 20 100 09/19/23 18:58 80 21 09/19/23 18:58 114/84 09/19/23 18:54 79 19 09/19/23 18:54 104/70 09/19/23 18:52 80 21 09/19/23 18:52 98/72 L 09/19/23 18:50 80 19 09/19/23 18:48 83/62 L 09/19/23 18:48 81 19 09/19/23 18:40 76 20 98 09/19/23 18:36 74 20 97 09/19/23 18:36 98/70 L 09/19/23 18:30 74 20 99 09/19/23 18:20 71 21 99 09/19/23 18:17 75 25 H 98/70 L 95 09/19/23 18:10 67 20 09/19/23 18:02 64 18 09/19/23 17:45 96 09/19/23 17:30 160/92 H 09/19/23 17:30 65 19 97 09/19/23 17:20 67 20 98 09/19/23 17:10 67 22 99 09/19/23 17:00 75 16 95 09/19/23 17:00 72 25 H 98 09/19/23 16:59 72 09/19/23 16:56 74 23 98 09/19/23 16:21 96 09/19/23 16:21 64 22 160/92 H 95 09/19/23 16:18 36.8 C 62 18 123/85 99 O2 Del Method 09/19/23 19:05 09/19/23 19:05 09/19/23 19:00 09/19/23 19:00 Room Air 09/19/23 18:58 09/19/23 18:58 09/19/23 18:54 09/19/23 18:54 09/19/23 18:52 09/19/23 18:52 09/19/23 18:50 09/19/23 18:48 09/19/23 18:48 09/19/23 18:40 Room Air 09/19/23 18:36 Room Air 09/19/23 18:36 09/19/23 18:30 Room Air 09/19/23 18:20 Room Air 09/19/23 18:17 Room Air 09/19/23 18:10 09/19/23 18:02 09/19/23 17:45 Room Air 09/19/23 17:30 09/19/23 17:30 Room Air 09/19/23 17:20 Room Air 09/19/23 17:10 Room Air 09/19/23 17:00 Room Air 09/19/23 17:00 Room Air 09/19/23 16:59 09/19/23 16:56 Room Air 09/19/23 16:21 Room Air 09/19/23 16:21 Room Air 09/19/23 16:18 Room Air Diagnostic Findings ABDOMEN AND PELVIS CT WITH IV CONTRAST CT DOSE: 249.62 mGy.cm HISTORY: Acute mid abdominal pain mid-abdominal pain s/p SBO surgery TECHNIQUE: Multiaxial CT images of the abdomen and pelvis were performed following the IV administration of 84 cc of Optiray, A dose lowering technique was utilized adhering to the principles of ALARA. COMPARISON STUDY: 08/16/2023 FINDINGS: Median sternotomy. Mild patchy bibasilar groundglass densities are likely infectious or inflammatory. There is no free air. Unremarkable spleen, pancreas and right adrenal gland. Borderline pancreatic ductal dilation redemonstrated measuring up to 4 mm. Unchanged nodular left adrenal gland thickening. The liver is within normal limits. Filling defects noted within the superior mesenteric and portal veins favoring mixing artifact. Unremarkable kidneys. There are a few probable cysts of the kidneys which are mostly subcentimeter. Moderate bladder wall thickening which is partially decompressed. Extensive atherosclerosis of the aorta with multifocal stenoses of the mesenteric and renal arteries. No lymphadenopathy identified. Moderate-sized hiatal hernia. Moderate abdominal pelvic ascites has progressed. Postoperative changes compatible subtotal colectomy with prior ileostomy takedown. There is twisting of the mesentery with high-grade small bowel obstruction. Fluid and stool-filled loops of small bowel measure up to approximately 4.5 cm. Several loops of small bowel demonstrate circumferential wall thickening. Large duodenal diverticulum. Transition point is noted within the central abdomen with twisting of the mesentery, image 1:30 series 3. There is an apparent additional transition point also seen on image 130 is body wall edema.. Prominent mesenteric edema. L1 compression deformity with kyphoplasty. IMPRESSION: 1. High-grade small bowel obstruction with twisting of the mesentery and at least two transition points suggestive of a closed loop obstruction. Surgical consultation is needed. 2. Mesenteric and body wall edema with moderate ascites. 3. Prior subtotal colectomy. 4. Extensive atherosclerosis. 5. Probable mixing artifact within the superior mesenteric and portal veins. Thrombus considered less likely. Findings could be correlated with ultrasound if of further clinical concern.
--- OUTSIDE RECORDS SUMMARY | 2023-09-19 20:45 | External Medical Summary | Continuity of Care Document ---
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 Name Role Phone Ricardo Turcios Primary Care Physician [phone] Encounter [facility] [id number] Date(s): 09/15/23 - 09/15/23 [facility] [address] [facility] [address], [address], [address] YO[place] Simms [id number] [phone] Encounter Diagnosis Small bowel obstruction(Discharge Diagnosis) - 09/15/23 Discharge Disposition: Home or Self Care Attending Physician: MD Lindsey Patricio B Referring Physician: DO Turcios William Price Allergies, Adverse Reactions, Alerts No Known Allergies Assessment and Plan Extracted from: Title:Clinical Document Author:JUAN CARLOS Ashley M eghann Date:09/15/23 COLORECTAL OUTPATIENT NOTE Name: ARTHUR ANSARI Patient Number: [id number] : 1950 Date of Service: 09/15/2023 Chief Complaint: Post-Op Check HPI: Sulma Ansari is 72-year-old female, with past medical history significant of Crohn's disease status post total abdominal colectomy, with end ileostomy, followed by small bowel resection and ileostomy reversal. In 03/2022, she underwent subsequent ileostomy reversal. She also has hx of CAD status post CABG, HLD, symptomatic PVCs, essential tremor, and MARISOL who presented to [facility] with abdominal pain, nausea, vomiting on 08/16. CT scan was obtained and demonstrated a small bowel obstruction with transition point. She was managed with NG tube decompression which failed. Given her history with [facility] colorectal service for her Crohn's disease, she was transferred overnight on 08/20 for higher level of care. Subsequent evaluation demonstrated findings consistent with an internal hernia. She was taken back to the OR emergently for decompression and on 08/21, Dr. Lindsey performed an exp lap, BRITTANY, bilateral Tap Block. Intraoperative findings included: adhesion of the omentum to the pelvis and retroperitoneum causing twisting of the small bowel going through an internal hernia. All the small bowel was viable, no areas of ischemia was identified. During induction, despite NG tube on suction, the patient was noted to have aspirated at least 10-50mL of bilious/brown appearing fluid. She was suctioned with approximately 10-15mL of fluid returned x2 immediately after the event and did not have any ventilatory issues throughout her case. Upon extubation the patient was initially saturating well. However continued to require escalation in oxygen, ultimately requiring a NRB at to maintain SPO2>92%. The SAICU was consulted for admission. She was febrile to 39C with tachypnea on 08/22 and continued on zosyn. On 08/23, she had been weaned to 2L NC overnight and she was temporarily downgraded to IMC. She then developed a fever of 39C and was saturating 89-91% on 2L so she was upgraded for closer monitoring. On 08/24, she began to have flatus and small smear of bowel movement. She was again downgraded to IMC status and ID was consulted for positive sputum cultures for Aissatou and Klebsiella. Recommendations for switching antibiotic therapy to Cipro, Cefepime and Micafungin. NGT and sage catheter both removed on 08/25. On 08/26, she remained on high flow nasal cannula and maintained adequate saturations. PT and OT evaluated patient and recommended home health therapy services. JULIET drain removed 08/28. Patient was deemed stable for discharge home on 08/28. The patient returns to the colorectal surgery clinic today, for post-op check. She feels well overall. She does note that she gets fatigued easily. She has not been sleeping well through the night. She is not having any abdominal pain. She reports her midline incision looks great and she is ready to get her peace removed. She is moving her bowels well. They are a bit on the looser side. However, she recently restarted her metamucil and this seems to be helping to thicken her stools up. She does have some leakage of liquid stool and gas at times, which she had prior to surgery as well. She is urinating adequately. She has completed antibiotics. She is tolerating a regular diet. No nausea or vomiting. She is trying to gain weight but is having some difficulty doing so. However, her weight is holding stable. She remains on 2 L via NC at home during the day and overnight. Sometimes, O2 sats drop to 88% with activity, such as vacuuming. Otherwise, sats are remaining above 90%. She is not using O2 in clinic today because she finds the oxygen tank cumbersome to carry. She has visit with pulmonology in September. Current Home Meds: (Last Updated 09/15 14:06) acetaminophen (acetaminophen 500 mg oral tablet) 1,000 mg PO q8h amiodarone (amiodarone 200 mg oral tablet) 200 mg PO Daily clonazePAM (clonazePAM 0.5 mg oral tablet) 1 tab PO daily Responsible Provider: DORIS TOLEDO 01/21 14:01 escitalopram (escitalopram 10 mg oral tablet) 30 each, TAKE 1 TABLET BY MOUTH EVERY DAY Responsible Provider: DORIS TOLEDO 01/21 14:01 fluconazole (fluconazole 100 mg oral tablet) 100 mg PO Daily levoFLOXacin (levoFLOXacin 750 mg oral tablet) 750 mg PO q24h metoprolol (metoprolol tartrate 25 mg oral tablet) 25 mg PO Daily mirtazapine (mirtazapine 7.5 mg oral tablet) 7.5 mg PO qhs omeprazole (omeprazole 40 mg oral delayed release capsule) 40 mg PO bid oxyCODONE (oxyCODONE 5 mg oral tablet) 5 mg PO q4h PRN: as needed for pain primidone (primidone 50 mg oral tablet) 5 tabs BID simvastatin (simvastatin 20 mg oral tablet) TAKE 1 TABLET BY MOUTH DAILY vedolizumab (Entyvio 300 mg intravenous injection) 300 mg IV As indicated Infuse over at least 30 minutes every 8 weeks. Allergies and Sensitivities: NKA Past Medical History: Problems: Acid reflux Crohn's disease Smoker Anxiety depression CTS (carpal tunnel syndrome) Hyperlipidemia Back injury HTN (hypertension) OBJECTIVE Vitals: Last Updated 09/15/23 14:06 Date Temp BP Location Pulse RR SpO2 Pain 09/15/23 36.9 118/68 66 20 0 08/28/23 37.5 124/55 Right Leg 84 18 02/09/24 86 18 Vital Signs are the last 3 documented. No Orthostatic Data Available Height and Weight: Last Updated 08/26/23 04:00 Date BMI Wt(kg) Wt(lb) Method Ht(cm) (ft-in) Method 08/26/23 39.4 87 Bed Scale 08/24/23 40.6 89 Bed Scale 08/22/23 43 95 Bed Scale Heights and Weights are the last 3 documented. Physical Exam General: Thin and frail appearing 72 year old female in NAD HEENT: NCAT. Sclera anicteric. MMM Neck: Supple Cardiac: HR 66 bpm. Regular rhythm Lungs: Non labored breathing Abdomen: Soft, non-tender, non-distended. No rebound tenderness or guarding. Midline incision c/d/i. [place] were removed. Nylons removed from around umbilicus Extremities: Well perfused. Moves extremities spontaneously x 4 Neuro: Alert and oriented x 3 30 Day Labs: 08/28/23 0559 Estimated CrCl 77.48 08/28/23 0512 Eos, Abs 0.17 Eos% 3.5 RBC 3.40 L MCHC 33.5 Neut% 73.5 Neut, Abs 3.47 RBC Morphology NORMAL Immature Gran% 0.0 Hct 31.0 L Plts 358 H [place], Abs 0.29 [place]% 6.2 WBC 4.72 MCH 30.6 Baso% 0.0 Type of Diff: MANUAL Baso, Abs 0.00 Hgb 10.4 L Lymph% 16.8 RDW 13.9 Immat Gran, Abs 0.00 Lymph, Abs 0.79 L Platelet Morphology NORMAL MCV 91.2 MPV 9.2 eGFR CKD-EPI >90 HCO3 28 Mg 2.1 PO4 1.7 L Cret 0.44 L Na 135 L Anion Gap 7 Cl- 100 Ca 8.5 BUN 3 L Glu 110 H K 3.3 L Alb 2.6 L 08/27/23 1240 WBC 4.93 MCH 31.3 Hgb 9.8 L RDW 13.9 MCV 93.3 MPV 9.8 RBC 3.13 L MCHC 33.6 Hct 29.2 L Plts 294 08/27/23 1046 COVID-19 Coronavirus PCR Final: 08/27/23 0603 Estimated CrCl 74.11 08/27/23 0509 Type of Diff: MANUAL Baso% 0.9 Baso, Abs 0.04 Hgb 8.9 L Smudge Cell MODERATE RDW 13.9 Lymph% 22.0 Lymph, Abs 1.07 Immat Gran, Abs 0.00 MCV 90.7 Platelet Morphology NORMAL MPV 9.9 Eos% 5.5 Eos, Abs 0.27 RBC 2.91 L MCHC 33.7 Neut% 69.7 Neut, Abs 3.39 Immature Gran% 0.0 RBC Morphology NORMAL Hct 26.4 L Plts 266 [place]% 1.9 [place], Abs 0.09 WBC 4.87 MCH 30.6 K 3.6 Glu 107 eGFR CKD-EPI >90 HCO3 27 PO4 2.0 L Mg 1.9 Na 134 L Cret 0.46 L Anion Gap 8 Cl- 99 Ca 8.4 BUN 5 L Alb 2.0 L 08/26/23 0510 Estimated CrCl 64.32 08/26/23 0424 MCH 30.2 MPV 9.6 Neut, Abs 7.51 Lymph% 13.7 Baso, Abs 0.00 Eos% 0.9 Type of Diff: MANUAL Immature Gran% 0.0 [place], Abs 0.25 WBC 9.08 MCV 92.4 Plts 245 Platelet Morphology NORMAL Eos, Abs 0.08 Baso% 0.0 Hgb 11.9 MCHC 32.7 [place]% 2.7 Lymph, Abs 1.24 Hct 36.4 Polychromasia INCREASED RDW 13.9 Neut% 82.7 Immat Gran, Abs 0.00 RBC 3.94 Cl- 98 Ca 9.2 BUN 6 K 3.6 eGFR CKD-EPI >90 Glu 91 Mg 2.0 PO4 2.3 L HCO3 26 Cret 0.53 L Na 134 L Anion Gap 10 Alb 2.6 L 08/25/23 0542 Estimated CrCl 61.98 08/25/23 0456 RBC 3.69 L RBC Morphology NORMAL Neut, Abs 12.12 H Neut% 93.7 Immature Gran% 0.0 Hct 34.4 L [place]% 1.8 Plts 192 [place], Abs 0.23 WBC 12.94 H Type of Diff: MANUAL MCH 31.7 Baso, Abs 0.00 Baso% 0.0 RDW 13.9 Hgb 11.7 Platelet Morphology NORMAL Lymph, Abs 0.47 L Lymph% 3.6 Immat Gran, Abs 0.00 MPV 10.0 MCV 93.2 Eos, Abs 0.12 Eos% 0.9 MCHC 34.0 BUN 7 PO4 2.0 L Cl- 101 Cret 0.55 L Anion Gap 10 Ca 8.1 L K 3.5 Mg 2.0 HCO3 25 eGFR CKD-EPI >90 Glu 120 H Ion Ca 1.02 L Na 136 Alb 2.1 L 08/24/23 1721 Blood.Cx Final: 08/24/23 1720 Blood.Cx Final: 08/24/23 0438 Estimated CrCl 50.88 08/24/23 0314 RBC Morphology NORMAL Eos, Abs 0.00 Eos% 0.0 RBC 3.95 MCHC 33.1 Neut, Abs 15.83 H Neut% 98.2 Immature Gran% 0.0 Hct 36.3 [place]% 0.0 Plts 164 [place], Abs 0.00 WBC 16.12 H Platelet Morphology NORMAL Type of Diff: MANUAL MCH 30.4 Baso, Abs 0.00 Baso% 0.0 Hgb 12.0 RDW 13.6 Lymph, Abs 0.15 L Lymph% 0.9 Immat Gran, Abs 0.00 MPV 9.9 MCV 91.9 Ion Ca 1.06 L K 3.2 L Mg 1.6 eGFR CKD-EPI >90 Glu 140 H HCO3 27 PO4 2.0 L Na 135 L Anion Gap 11 Cret 0.67 Ca 8.7 Cl- 97 L BUN 8 Pre-alb 6 L Alb 2.7 L 08/24/23 0215 Gluc Meter 102 08/23/23 2007 Gluc Meter 85 08/23/23 1143 Gluc Meter 103 Blood Glucose 103 08/23/23 0809 Gluc Meter 104 Blood Glucose 104 08/23/23 0421 Estimated CrCl 46.70 08/23/23 0326 Baso% 0.0 Type of Diff: MANUAL Baso, Abs 0.00 Hgb 12.8 Lymph% 5.4 RDW 13.9 Immat Gran, Abs 0.00 Lymph, Abs 0.93 L MPV 10.2 MCV 92.0 Eos, Abs 0.16 Eos% 0.9 Platelet Morphology NORMAL RBC 4.14 MCHC 33.6 Neut, Abs 16.04 H Neut% 92.8 Immature Gran% 0.0 Hct 38.1 [place]% 0.9 Plts 171 [place], Abs 0.16 RBC Morphology NORMAL WBC 17.28 H MCH 30.9 PO4 2.1 L Na 139 Anion Gap 9 Cret 0.73 Ion Ca 1.29 H Mg 1.8 Ca 9.8 Cl- 103 BUN 12 Glu 112 H K 4.1 eGFR CKD-EPI 87 HCO3 27 Alb 2.7 L 08/23/23 0006 Gluc Meter 110 H 08/22/23 2004 Gluc Meter 106 08/22/23 1646 Blood Glucose 97 08/22/23 1645 Gluc Meter 97 08/22/23 1500 Ion Ca, wb 0.98 L K, wb 3.7 08/22/23 1149 Blood Glucose 104 08/22/23 1148 Gluc Meter 104 08/22/23 0757 Gluc Meter 97 Blood Glucose 97 08/22/23 0357 Estimated CrCl 40.11 08/22/23 0302 MCH 31.3 Type of Diff: MANUAL Baso% 0.0 Baso, Abs 0.00 Immature Gran% 0.0 Hct 38.5 Plts 191 [place]% 4.1 [place], Abs 0.17 Platelet Morphology NORMAL WBC 4.13 Ovalocytes FEW Hgb 13.0 RDW 13.9 Lymph% 8.1 Lymph, Abs 0.33 L Immat Gran, Abs 0.00 Polychromasia INCREASED MCV 92.8 MPV 9.8 Eos% 0.0 Eos, Abs 0.00 RBC 4.15 MCHC 33.8 Neut% 87.8 Neut, Abs 3.63 Mg 2.0 HCO3 26 PO4 2.9 K 3.3 L Glu 75 eGFR CKD-EPI 73 Na 143 Cret 0.85 Anion Gap 12 Cl- 105 Ion Ca 1.09 L Ca 8.6 BUN 22 Alb 2.8 L 08/21/23 2335 Estimated CrCl 42.09 08/21/23 2331 Gluc Meter 73 L 08/21/232248 Resp.Cx-CF Final: Sputum.Culture Final: Pos. Fungus.Culture, Sputum Prelim: Pos. AFB.Culture, Sputum Prelim: 08/21/232246 Blood.Cx Final: 08/21/232245 pCO2(a) 37.0 SaO2(a) 99.2 H Temp(a) 36.7 Lactate 1.3 HCO3(a) 23.5 Base Deficit 0.9 FiO2 (a) 70 pH(a) 7.410 Hgb(a) 12.8 pO2(a) 80.0 L Na 141 Cret 0.81 Anion Gap 15 H Mg 2.0 HCO3 22 PO4 2.6 Ion Ca 1.06 L Cl- 104 Ca 7.8 L BUN 25 H K 3.4 L Glu 93 eGFR CKD-EPI 77 Fungus.Culture, Respiratory Final: Jose.Cx (bld) Prelim: AFB.Cx (bld) Prelim: MRSA Surveillance, on Admission MRSA NOT detected Alb 2.7 L 08/21/235 Blood.Cx Final: 08/21/232234 AFB.Culture, Respiratory Final: 08/21/232034 Estimated CrCl 38.30 08/21/23 1938 Hct 39.4 Plts 236 WBC 3.03 L MCH 32.2 Hgb 13.5 RDW 14.0 MCV 94.0 MPV 9.5 RBC 4.19 MCHC 34.3 Anion Gap 19 H Cl- 103 Ca 8.2 L BUN 26 H K 3.6 Glu 96 eGFR CKD-EPI 69 HCO3 19 L PO4 4.0 Mg 2.2 Na 141 Cret 0.89 Alb 3.1 L 08/21/23 1758 pCO2 (a), POC 57.0 H Temp(a) 36.7 Base Deficit, POC 7 pH (a), POC 7.192 CL SaO2(a), POC 94 pO2 (a), POC 88 HCO3(a), POC 22.0 Hct, POC 37 L Hgb, POC 12.6 K (wb), POC 3.6 Glu (wb), POC by IStat 81 Na (wb), POC 139 Ion Ca(wb), POC 1.03 L 08/21/23 1638 Fluid.Cx Final: Anaerobe.Culture, Fluid Final: 08/21/23 1624 pH (a), POC 7.255 L SaO2(a), POC 90 L pO2 (a), POC 69 L HCO3(a), POC 22.4 pCO2 (a), POC 50.5 H Temp(a) 36.9 Base Deficit, POC 5 Hgb, POC 11.6 L Hct, POC 34 L K (wb), POC 3.6 Glu (wb), POC by IStat 79 Ion Ca(wb), POC 1.11 L Na (wb), POC 138 08/21/23 0839 Estimated CrCl 32.47 08/21/23 0731 Component RED CELLS R Number NRElver Expires at 0600AM on 08/24/2023 Antibody Scr NEGATIVE # Units 0 ABO/Rh O POSITIVE Hct 38.3 Plts 242 WBC 5.86 MCH 31.6 RDW 13.9 Hgb 12.8 MPV 9.6 MCV 94.6 MCHC 33.4 RBC 4.05 Ca 9.1 Cl- 103 BUN 32 H K 4.2 Glu 98 Mg 2.5 PO4 3.4 HCO3 24 Anion Gap 14 Na 141 Cret 1.05 H eGFR CKD-EPI 57 L HCV Ab NONREACTIVE Alb 3.9 ASSESSMENT: 72 yof with hx of Crohn's disease s/p TAC with ileostomy, followed by [facility]. She was recently found to have a small bowel obstruction. She failed conservative management and required Ex Lap, LOAs on 08/22/23. SBO was caused by the omentum adhered to the pelvis and retroperitoneum causing a twisting of the small bowel. PLAN: - Surgical peace and sutures were removed - Continue regular diet - Follow-up PRN COLORECTAL SURGERY ATTENDING ATTESTATION I have personally seen, evaluated and examined the patient. The medical file was reviewed. I agree with the history, review of systems, and physical exam for this patient. I have reviewed the existing laboratory results and radiographic images. I also agree with the assessment and plan from the advanced practice provider/residents note. Thank you for entrusting the care of your patients to the Colon & Rectal Surgery Division at [facility]. Medications acetaminophen 500 mg oral tablet Start: 04/11/22 7:29:00 EDT, 2 tab, PO, q8h Start Date: 04/11/22 Status: Ordered amiodarone 200 mg oral tablet Start: 09/15/23 14:06:00 EST, 1 tab, PO, Daily Start Date: 09/15/23 Status: Ordered clonazePAM 0.5 mg oral tablet Start: 01/21/23 14:01:00 EDT, See Instructions, 1 tab PO daily Start Date: 01/21/23 Status: Ordered Entyvio 300 mg intravenous injection Start: 05/08/23 16:39:00 EDT, 300 mg =, IV, As indicated, Disp# 1 each, Refills: 6, Infuse over at least 30 minutes every 8 weeks., Pharmacy: [facility] Start Date: 05/08/23 Status: Ordered escitalopram 10 mg oral tablet Start: 01/21/23 14:01:00 EDT, 30 each, TAKE 1 TABLET BY MOUTH EVERY DAY Start Date: 01/21/23 Status: Ordered fluconazole 100 mg oral tablet Start: 08/28/23 14:08:00 EST, 1 tab, PO, Daily, Disp# 2 tab, Refills: 0, Pharmacy: [facility] Start Date: 08/28/23 Stop Date: 08/30/23 Status: Ordered levoFLOXacin 750 mg oral tablet Start: 08/28/23 14:07:00 EST, 1 tab, PO, q24h, Disp# 2, Refills: 0, Pharmacy: [facility] Start Date: 08/28/23 Stop Date: 08/30/23 Status: Ordered metoprolol tartrate 25 mg oral tablet Start: 08/17/21 11:52:00 EST, 1 tab, PO, Daily Start Date: 08/17/21 Status: Ordered mirtazapine 7.5 mg oral tablet Start: 09/15/23 14:05:00 EST, 1 tab, PO, qhs Start Date: 09/15/23 Status: Ordered omeprazole 40 mg oral delayed release capsule Start: 06/25/23 16:58:00 EST, 1 cap, PO, bid, Disp# 180 cap, Refills: 3, Pharmacy: [facility]/pharmacy #[id number] Start Date: 06/25/23 Stop Date: 06/19/24 Status: Ordered oxyCODONE 5 mg oral tablet Start: 08/27/23 13:48:00 EST, 1 tab, PO, q4h, Disp# 20 tab, Refills: 0, PRN: as needed for pain, Pharmacy: [facility] Start Date: 08/27/23 Status: Ordered primidone 50 mg oral tablet Start: 10/03/19 16:00:00 EDT, See Instructions, 5 tabs BID Start Date: 10/03/19 Status: Ordered simvastatin 20 mg oral tablet TAKE 1 TABLET BY MOUTH DAILY Start Date: 03/25/22 Status: Ordered Mental Status 09/15/23 Barriers to Learning one year None evide nt Mandatory Health Literacy Documentation Yes Health Literacy Communication Barriers N ever Primary Language Amharic Problem List Condition Confirmation Course Effective Dates Status H ealth Status Informant Anxiety depression Confirmed Active Back injury Confirmed Active Crohn's disease Confirmed Active CTS (carpal tunnel syndrome) 1 Confirmed Active Acid reflux Confirmed Active HTN (hypertension) Confirmed Active Hyperlipidemia Confirmed Active Smoker Confirmed Active 1left Diagnosis Diagnosis Type Effective Dates Health Status Clinical Service Informant Small bowel obstruction Discharge Diagnosis 09/15/23 Non-Specified Procedures Procedure Date Related Diagnosis Body Site Status Ileoscopy 1 03/06/22 Completed Sigmoidoscopy 2 03/06/22 Completed Colonoscopy 3, 4 07/26/20 Complete d Shoulder 5 11/13/11 Completed Rotator cuff repair 6 08/30/09 Com pleted Back 2009 Completed Polyp 7 2006 Completed CTR - Carpal tunnel release 8, 9 02/2002 Completed Hysterectomy 1978 Completed Tonsillectomy 1970 Completed Elbow 10 Completed 1Ileoscopy to 25 cm nl 2Rectal stump examined to 20 cm suture line, mild congestion proxima 3Impression: Crohn's disease with colonic involvement. Inflammation was found in the recto- sigmoid colon, in thesigmoid colon, in the descending colon, in the transverse colon and in the ascending colon. This was severe, worsened compared to previous examinations. Stricture at the ileocecal valve. Mucosal ulceration. Biopsied. Mucosal ulceration. Biopsied. 4Pathology results: Active Crohn's disease. Negative CMV 5left, sx 6right shoulder 7removed from voice box 8right 9and again in 2002 10right, ulnar nerve transposition Vital Signs Most recent to oldest [Reference Range]: 1 Temperature [36.5-37.9 DegC] 36.9 DegC (09/15/23 2:06 PM) Heart Rate 66 bpm (09/15/23 2:06 PM) Respiratory Rate 20 br/min (09/15/23 2:06 PM) Blood Pressure 118/68mmHg (09/15/23 2:06 PM) Cuff Pulse Pressure 50 mmHg (09/15/23 2:06 PM) Social History Social History Type Response Tobacco Current every day sm oker Smoking Status Former Smoker, quit in last 30 days Sex Female Colorectal Outpt Note * JUAN CARLOS Ashley, [place]: PERFORM MD Rosalia, Eulogio Stoner: MODIFY Event Display: Colorectal Outpt Note Authored Date: [id number] COLORECTAL OUTPATIENT NOTE Name: ARTHUR ANSARI Patient Number: [id number] : 1950 Date of Service: 09/15/2023 Chief Complaint: Post-Op Check HPI: Sulma Ansari is 72-year-old female, with past medical history significant of Crohn's disease status post total abdominal colectomy, with end ileostomy, followed by small bowel resection and ileostomy reversal. In 03/2022, she underwent subsequent ileostomy reversal. She also has hx of CAD statuspost CABG, HLD, symptomatic PVCs, essential tremor, and MARISOL who presented to [facility] with abdominal pain, nausea, vomiting on 08/16. CT scan was obtained and demonstrated a small bowel obstruction with transition point. She was managed with NG tube decompression which failed. Given her history with [facility] colorectal service for her Crohn's disease, she was transferred overnight on 08/20 for higher level of care. Subsequent evaluation demonstrated findings consistent with an internal hernia. She was taken back to the OR emergently for decompression and on 08/21, Dr. Lindsey performed an exp lap, BRITTANY, bilateral TapBlock. Intraoperative findings included: adhesion of the omentum to the pelvis and retroperitoneum causing twisting of the small bowel going through an internal hernia. All the small bowel was viable, no areas of ischemia was identified. During induction, despite NG tube on suction, the patient was noted to have aspirated at least 10-50mL of bilious/brown appearing fluid. She was suctioned with approximately 10-15mL of fluid returnedx2 immediately after the event and did not have any ventilatory issues throughout her case. Upon extubation the patient was initially saturating well. However continued to require escalation in oxygen, ultimately requiring a NRB at to maintain SPO2>92%. The SAICU was consulted for admission. Shewas febrile to 39C with tachypnea on 08/22 and continued on zosyn. On 08/23, she had been weaned to 2L NC overnight and she was temporarily downgraded to IMC. She then developed a fever of 39C and was sat urating 89-91% on 2L so she was upgraded for closer monitoring. On 08/24, she began to have flatus and small smear of bowel movement. She was again downgraded to IMC status and ID was consulted for positive sputum cultures for Aissatou and Klebsiella. Recommendations for switching antibiotic therapy to Cipro, Cefepime and Micafungin. NGT and sage catheter both removed on 08/25. On 08/26, she remained on high flow nasal cannula and maintained adequate saturations. PT and OT evaluated patient and recommended home health therapy services. JULIET drain removed 08/28. Patient was deemed stable for discharge home on 08/28. The patient returns to the colorectal surgery clinic today, for post-op check. She feels well overall. She does note that she gets fatigued easily. She has not been sleeping well through the night. She is not having any abdominal pain. She reports her midline incision looks great and she is ready to get her peace removed. She is moving her bowels well. They are a bit on the looser side. However, she recently restarted her metamucil and this seems to be helping to thicken her stools up. She does have some leakage of liquid stool and gas at times, which she had prior to surgery as well. She is urinating adequately. She has completed antibiotics. She is tolerating a regular diet. No nausea or vomiting. She is trying to gain weight but is having some difficulty doing so. However, her weightis holding stable. She remains on 2 L via NC at home during the day and overnight. Sometimes, O2 sats drop to 88% with activity, such as vacuuming. Otherwise, sats are remaining above 90%. She is notusing O2 in clinic today because she finds the oxygen tank cumbersome to carry. She has visit with pulmonology in September. Current Home Meds: (Last Updated 09/15 14:06) acetaminophen (acetaminophen 500 mg oral tablet) 1,000 mg PO q8h amiodarone (amiodarone 200 mg oral tablet) 200 mg PO Daily clonazePAM (clonazePAM 0.5 mg oral tablet) 1 tab PO daily Responsible Provider: DORIS TOLEDO 01/21 14:01 escitalopram (escitalopram 10 mg oral tablet) 30 each, TAKE 1 TABLET BY MOUTH EVERY DAY ResponsibleProvider: DORIS TOLEDO 01/21 14:01 fluconazole (fluconazole 100 mg oral tablet) 100 mg PO Daily levoFLOXacin (levoFLOXacin 750 mg oral tablet) 750 mg PO q24h metoprolol (metoprolol tartrate 25 mg oral tablet) 25 mg PO Daily mirtazapine (mirtazapine 7.5 mg oral tablet) 7.5 mg PO qhs omeprazole (omeprazole 40 mg oral delayed release capsule) 40 mg PO bid oxyCODONE (oxyCODONE 5 mg oral tablet) 5 mg PO q4h PRN: as needed for pain primidone (primidone 50 mg oral tablet) 5 tabs BID simvastatin (simvastatin 20 mg oral tablet) TAKE 1 TABLET BY MOUTH DAILY vedolizumab (Entyvio 300 mg intravenous injection) 300 mg IV As indicated Infuse over at least 30 minutes every 8 weeks. Allergies and Sensitivities: NKA Past Medical History: Problems: Acid reflux Crohn's disease Smoker Anxiety depression CTS (carpal tunnel syndrome) Hyperlipidemia Back injury HTN (hypertension) OBJECTIVE Vitals: Last Updated 09/15/23 14:06 Date Temp BP Location Pulse RR SpO2 Pain 09/15/23 36.9 118/68 66 20 0 08/28/23 37.5 124/55 Right Leg 84 18 08/28/23 86 18 Vital Signs are the last 3 documented. No Orthostatic Data Available Height and Weight: Last Updated 08/26/23 04:00 Date BMI Wt(kg) Wt(lb) Method Ht(cm) (ft-in) Method 08/26/23 39.4 87 Bed Scale 08/24/23 40.6 89 Bed Scale 08/22/23 43 95 Bed Scale Heights and Weights are the last 3 documented. Physical Exam General: Thin and frail appearing 72 year old female in NAD HEENT: NCAT. Sclera anicteric. MMM Neck: Supple Cardiac: HR 66 bpm. Regular rhythm Lungs: Non labored breathing Abdomen: Soft, non-tender, non-distended. No rebound tenderness or guarding. Midline incision c/d/i. Peace were removed. Nylons removed from around umbilicus Extremities: Well perfused. Moves extremities spontaneously x 4 Neuro: Alert and oriented x 3 30 Day Labs: 08/28/23 0559 Estimated CrCl 77.48 08/28/23 0512 Eos, Abs 0.17 Eos% 3.5 RBC 3.40 L MCHC 33.5 Neut% 73.5 Neut, Abs 3.47 RBC Morphology NORMAL Immature Gran% 0.0 Hct 31.0 L Plts 358 H [place], Abs 0.29 [place]% 6.2 WBC 4.72 MCH 30.6 Baso% 0.0 Type of Diff: MANUAL Baso, Abs 0.00 Hgb 10.4 L Lymph% 16.8 RDW 13.9 Immat Gran, Abs 0.00 Lymph, Abs 0.79 L Platelet Morphology NORMAL MCV 91.2 MPV 9.2 eGFR CKD-EPI >90 HCO3 28 Mg 2.1 PO4 1.7 L Cret 0.44 L Na 135 L Anion Gap 7 Cl- 100 Ca 8.5 BUN 3 L Glu 110 H K 3.3 L Alb 2.6 L 08/27/23 1240 WBC 4.93 MCH 31.3 Hgb 9.8 L RDW 13.9 MCV 93.3 MPV 9.8 RBC 3.13 L MCHC 33.6 Hct 29.2 L Plts 294 08/27/23 1046 COVID-19 Coronavirus PCR Final: 08/27/23 0603 Estimated CrCl 74.11 08/27/23 0509 Type of Diff: MANUAL Baso% 0.9 Baso, Abs 0.04 Hgb 8.9 L Smudge Cell MODERATE RDW 13.9 Lymph% 22.0 Lymph, Abs 1.07 Immat Gran, Abs 0.00 MCV 90.7 Platelet Morphology NORMAL MPV 9.9 Eos% 5.5 Eos, Abs 0.27 RBC 2.91 L MCHC 33.7 Neut% 69.7 Neut, Abs 3.39 Immature Gran% 0.0 RBC Morphology NORMAL Hct 26.4 L Plts 266 [place]% 1.9 [place], Abs 0.09 WBC 4.87 MCH 30.6 K 3.6 Glu 107 eGFR CKD-EPI >90 HCO3 27 PO4 2.0 L Mg 1.9 Na 134 L Cret 0.46 L Anion Gap 8 Cl- 99 Ca 8.4 BUN 5 L Alb 2.0 L 08/26/23 0510 Estimated CrCl 64.32 08/26/23 0424 MCH 30.2 MPV 9.6 Neut, Abs 7.51 Lymph% 13.7 Baso, Abs 0.00 Eos% 0.9 Type of Diff: MANUAL Immature Gran% 0.0 [place], Abs 0.25 WBC 9.08 MCV 92.4 Plts 245 Platelet Morphology NORMAL Eos, Abs 0.08 Baso% 0.0 Hgb 11.9 MCHC 32.7 [place]% 2.7 Lymph, Abs 1.24 Hct 36.4 Polychromasia INCREASED RDW 13.9 Neut% 82.7 Immat Gran, Abs 0.00 RBC 3.94 Cl- 98 Ca 9.2 BUN 6 K 3.6 eGFR CKD-EPI >90 Glu 91 Mg 2.0 PO4 2.3 L HCO3 26 Cret 0.53 L Na 134 L Anion Gap 10 Alb 2.6 L 08/25/23 0542 Estimated CrCl 61.98 08/25/23 0456 RBC 3.69 L RBC Morphology NORMAL Neut, Abs 12.12 H Neut% 93.7 Immature Gran% 0.0 Hct 34.4 L [place]% 1.8 Plts 192 [place], Abs 0.23 WBC 12.94 H Type of Diff: MANUAL MCH 31.7 Baso, Abs 0.00 Baso% 0.0 RDW 13.9 Hgb 11.7 Platelet Morphology NORMAL Lymph, Abs 0.47 L Lymph% 3.6 Immat Gran, Abs 0.00 MPV 10.0 MCV 93.2 Eos, Abs 0.12 Eos% 0.9 MCHC 34.0 BUN 7 PO4 2.0 L Cl- 101 Cret 0.55 L Anion Gap 10 Ca 8.1 L K 3.5 Mg 2.0 HCO3 25 eGFR CKD-EPI >90 Glu 120 H Ion Ca 1.02 L Na 136 Alb 2.1 L 08/24/23 1721 Blood.Cx Final: 08/24/23 1720 Blood.Cx Final: 08/24/23 0438 Estimated CrCl 50.88 08/24/23 0314 RBC Morphology NORMAL Eos, Abs 0.00 Eos% 0.0 RBC 3.95 MCHC 33.1 Neut, Abs 15.83 H Neut% 98.2 Immature Gran% 0.0 Hct 36.3 [place]% 0.0 Plts 164 [place], Abs 0.00 WBC 16.12 H Platelet Morphology NORMAL Type of Diff: MANUAL MCH 30.4 Baso, Abs 0.00 Baso% 0.0 Hgb 12.0 RDW 13.6 Lymph, Abs 0.15 L Lymph% 0.9 Immat Gran, Abs 0.00 MPV 9.9 MCV 91.9 Ion Ca 1.06 L K 3.2 L Mg 1.6 eGFR CKD-EPI >90 Glu 140 H HCO3 27 PO4 2.0 L Na 135 L Anion Gap 11 Cret 0.67 Ca 8.7 Cl- 97 L BUN 8 Pre-alb 6 L Alb 2.7 L 08/24/23 0215 Gluc Meter 102 08/23/232006 Gluc Meter 85 08/23/23 1143 Gluc Meter 103 Blood Glucose 103 08/23/23 0809 Gluc Meter 104 Blood Glucose 104 08/23/23 0421 Estimated CrCl 46.70 08/23/23 0326 Baso% 0.0 Type of Diff: MANUAL Baso, Abs 0.00 Hgb 12.8 Lymph% 5.4 RDW 13.9 Immat Gran, Abs 0.00 Lymph, Abs 0.93 L MPV 10.2 MCV 92.0 Eos, Abs 0.16 Eos% 0.9 Platelet Morphology NORMAL RBC 4.14 MCHC 33.6 Neut, Abs 16.04 H Neut% 92.8 Immature Gran% 0.0 Hct 38.1 [place]% 0.9 Plts 171 [place], Abs 0.16 RBC Morphology NORMAL WBC 17.28 H MCH 30.9 PO4 2.1 L Na 139 Anion Gap 9 Cret 0.73 Ion Ca 1.29 H Mg 1.8 Ca 9.8 Cl- 103 BUN 12 Glu 112 H K 4.1 eGFR CKD-EPI 87 HCO3 27 Alb 2.7 L 08/23/23 0006 Gluc Meter 110 H 08/22/232003 Gluc Meter 106 08/22/23 1646 Blood Glucose 97 08/22/23 1645 Gluc Meter 97 08/22/23 1500 Ion Ca, wb 0.98 L K, wb 3.7 08/22/23 1149 Blood Glucose 104 08/22/23 1148 Gluc Meter 104 08/22/23 0757 Gluc Meter 97 Blood Glucose 97 08/22/23 0357 Estimated CrCl 40.11 08/22/23 0302 MCH 31.3 Type of Diff: MANUAL Baso% 0.0 Baso, Abs 0.00 Immature Gran% 0.0 Hct 38.5 Plts 191 [place]% 4.1 [place], Abs 0.17 Platelet Morphology NORMAL WBC 4.13 Ovalocytes FEW Hgb 13.0 RDW 13.9 Lymph% 8.1 Lymph, Abs 0.33 L Immat Gran, Abs 0.00 Polychromasia INCREASED MCV 92.8 MPV 9.8 Eos% 0.0 Eos, Abs 0.00 RBC 4.15 MCHC 33.8 Neut% 87.8 Neut, Abs 3.63 Mg 2.0 HCO3 26 PO4 2.9 K 3.3 L Glu 75 eGFR CKD-EPI 73 Na 143 Cret 0.85 Anion Gap 12 Cl- 105 Ion Ca 1.09 L Ca 8.6 BUN 22 Alb 2.8 L 08/21/232334 Estimated CrCl 42.09 08/21/23 2331 Gluc Meter 73 L 08/21/232248 Resp.Cx-CF Final: Sputum.Culture Final: Pos. Fungus.Culture, Sputum Prelim: Pos. AFB.Culture, Sputum Prelim: 08/21/232246 Blood.Cx Final: 08/21/232245 pCO2(a) 37.0 SaO2(a) 99.2 H Temp(a) 36.7 Lactate 1.3 HCO3(a) 23.5 Base Deficit 0.9 FiO2 (a) 70 pH(a) 7.410 Hgb(a) 12.8 pO2(a) 80.0 L Na 141 Cret 0.81 Anion Gap 15 H Mg 2.0 HCO3 22 PO4 2.6 Ion Ca 1.06 L Cl- 104 Ca 7.8 L BUN 25 H K 3.4 L Glu 93 eGFR CKD-EPI 77 Fungus.Culture, Respiratory Final: Jose.Cx (bld) Prelim: AFB.Cx (bld) Prelim: MRSA Surveillance, on Admission MRSA NOT detected Alb 2.7 L 08/21/232244 Blood.Cx Final: 08/21/232234 AFB.Culture, Respiratory Final: 08/21/232034 Estimated CrCl 38.30 08/21/23 1938 Hct 39.4 Plts 236 WBC 3.03 L MCH 32.2 Hgb 13.5 RDW 14.0 MCV 94.0 MPV 9.5 RBC 4.19 MCHC 34.3 Anion Gap 19 H Cl- 103 Ca 8.2 L BUN 26 H K 3.6 Glu 96 eGFR CKD-EPI 69 HCO3 19 L PO4 4.0 Mg 2.2 Na 141 Cret 0.89 Alb 3.1 L 08/21/23 1758 pCO2 (a), POC 57.0 H Temp(a) 36.7 Base Deficit, POC 7 pH (a), POC 7.192 CL SaO2(a), POC 94 pO2 (a), POC 88 HCO3(a), POC 22.0 Hct, POC 37 L Hgb, POC 12.6 K (wb), POC 3.6 Glu (wb), POC by IStat 81 Na (wb), POC 139 Ion Ca(wb), POC 1.03 L 08/21/23 1638 Fluid.Cx Final: Anaerobe.Culture, Fluid Final: 08/21/23 1624 pH (a), POC 7.255 L SaO2(a), POC 90 L pO2 (a), POC 69 L HCO3(a), POC 22.4 pCO2 (a), POC 50.5 H Temp(a) 36.9 Base Deficit, POC 5 Hgb, POC 11.6 L Hct, POC 34 L K (wb), POC 3.6 Glu (wb), POC by IStat 79 Ion Ca(wb), POC 1.11 L Na (wb), POC 138 08/21/23 0839 Estimated CrCl 32.47 08/21/23 0731 Component RED CELLS R Number NRQ Expires at 0600AM on 08/24/2023 Antibody Scr NEGATIVE # Units 0 ABO/Rh O POSITIVE Hct 38.3 Plts 242 WBC 5.86 MCH 31.6 RDW 13.9 Hgb 12.8 MPV 9.6 MCV 94.6 MCHC 33.4 RBC 4.05 Ca 9.1 Cl- 103 BUN 32 H K 4.2 Glu 98 Mg 2.5 PO4 3.4 HCO3 24 Anion Gap 14 Na 141 Cret 1.05 H eGFR CKD-EPI 57 L HCV Ab NONREACTIVE Alb 3.9 ASSESSMENT: 72 yof with hx of Crohn's disease s/p TAC with ileostomy, followed by SARAHI. She was recently found to have a small bowel obstruction. She failed conservative management and required Ex Lap, LOAs on 08/22/23. SBO was caused by the omentum adhered to the pelvis and retroperitoneum causing a twisting of the small bowel. PLAN: - Surgical peace and sutures were removed - Continue regular diet - Follow-up PRN COLORECTAL SURGERY ATTENDING ATTESTATION I have personally seen, evaluated and examined the patient. The medical file was reviewed. I agree with the history, review of systems, and physical exam for this patient. I have reviewed the existing laboratory results and radiographic images. I also agree with the assessment and plan from the advanced practice provider/residents note. Thank you for entrusting the care of your patients to the Colon & Rectal Surgery Division at [facility]. Electronic Signature on File Electronically Reviewed/Signed by: Alma Ashley PA-C Author Signature Dt/Tm:09/16/2023 02:20 PM Division of Colorectal Surgery Electronically Reviewed/Signed by: Eulogio Lindsey MD Cosigner Signature Dt/Tm: 09/17/2023 08:46 AM Division of Colorectal Surgery [place] Patient Care team information Care Team Personnel Name: Sandi Cuello Kayla Position: Pharmacist Member Role: Pharmacy - Lifetime Name: YULISSA Davidson Janet Griffith Position: Nurse Pract - Pulmonary Med Member Role: Lifetime Relationship Address: Address: [address] [place] [address] [place] Name: Sandi Meadows Amy E Position: Pharmacist Member Role: Pharmacy - Lifetime Address: Address: [place] [address] [place] Name: MD Parris, Leia Jimenez Position: Physician - Anesthesiologist Member Role: Lifetime Relationship Address: Address: [address] [place] [address] [place] Name: Sandi Hong Keri Position: Pharmacist Member Role: Pharmacy - Lifetime Name: Snadi Corona Ann Position: Pharmacist Schedule II Member Role: Pharmacy - Lifetime Name: DO Turcios William Price Position: Referring Member Role: Primary Care Provider Address: Address: [place] [address] [place] [address] [place] Care Team Related Persons Name: LINDSEY LIRA Address: [address] [id number]
[2023-09-19] MEDS: MoRPHine SULFATE 4 MG/ML 1 ML CARP\\VIAL IV STA (21:19)
[2023-09-19] MEDS: PIPER/TAZO 4.5g in D5W MINI-B 100 ML IV ONE (21:23)
--- NOTE | 2023-09-19 22:36 | Hospitalist Consultation ---
Date of Consultation September 19, 2023 Assessment & Plan (1) SBO (small bowel obstruction): SBO obstruction in the setting of Recent Surgery - NGT in place - High-grade small bowel obstruction with twisting of the mesentery and at least two transition points suggestive of a closed loop obstruction - antibiotic management with Zosyn per surgical team - Fluids per surgical team; LR@125ml/hr. Total of 4L IVF in ED - Surgeon elevated pt in the ED and currently plan is for conservative management. Hypotension - s/p 4L IVF in the ED - continue maintenance as per above - albumin if blood pressure remains low in spit of fluids - limit opioids in the setting of hypotension Symptomatic PVCs - hold amiodarone /metoprolol while NPO, plan to restart as soon as possible - prn labetalol for HR>100 Essential Tremor - holf primidone as pt is NPO, restart as soon as possible GERD -PPI IV as per surgical team Anxiety - hold clonazepam prn, escitalopram, mirtazapine as pt is NPO, restart as soon as possible HLD - hold statin as pt is NPO COPD - continue home inhalers CAD - restart home medications once she is able to tolerate PO VTE Prophylaxis: SCDs, defer pharmacologic at present pending surgical plan Code: Full Diet: NPO (2) Abdominal pain: (3) COPD (chronic obstructive pulmonary disease): (4) Essential tremor: (5) CAD (coronary artery disease): Supervising Physician Co-Signing Physician Notes Attending addendum: I have physically seen this patient, have supervised the medical residents activities, and agree with the H&P unless as otherwise noted. Assessment and Plan: Small bowel obstruction/closed-loop obstruction- NGT to LIS Admitted to the surgical service Zosyn IV as noted LR 125 MLS per hour. Patient is status post 4 L IV fluid from the ED Hypotension/PVC's- Transfer to PCU if persistent Continue IV fluid resuscitation May add albumin 25 g of 25% IV if drops further Suggestive of developing sepsis PRN negative inotropes if HR > 110 If not improved, then transfer to ICU for pressors History of Present Illness History of Present Illness 72 year old female with a past medical history of COPD, essential tremor, CAD, Crohn's Disease, MARISOL, HLD, osteoporosis presenting with SBO, consulted for medical management. Acute abdominal pain began suddenly around noon. She states it is similar to the pain she had with bowel obstruction a few weeks ago. At that time she was transferred to [place] and underwent laparotomy, adhesions of the omentum causing a small bowel obstruction through an internal hernia were found and resolved. Today patient is in significant pain. States it is diffuse abdominal pain. NGT placed in the ED. Hypotensive in the EDs 90s/50s s/p 4L IVF. Lactate elevated to 4.6. NGT was placed and current plan is for conservative management. Allergies Allergy/AdvReac Type Severity Reaction Status Date / Time No Known Allergies Allergy Verified 09/19/23 20:15 Home Medications Medication Instructions Recorded Confirmed Type acetaminophen 500 mg tablet 1,000 mg PO Q6H PRN Pain 04/19/22 09/19/23 History (Tylenol Extra Strength) omeprazole 20 mg capsule,delayed 20 mg PO DAILY 12/31/22 09/19/23 History release escitalopram oxalate 20 mg tablet 20 mg PO DAILY #90 tabs 03/30/23 09/19/23 Rx (Lexapro) teriparatide 20 mcg/dose (600 20 mcg (0.08 mL) subcut DAILY #2.4 05/12/23 09/19/23 Rx mcg/2.4 mL) subcutaneous pen mL injector (Forteo) amiodarone 200 mg tablet 200 mg PO DAILY #90 tabs 06/04/23 09/19/23 Rx metoprolol succinate 25 mg 25 mg PO DAILY #90 tabs 06/04/23 09/19/23 Rx tablet,extended release 24 hr simvastatin 20 mg tablet 20 mg PO DAILY #90 tabs 07/28/23 09/19/23 Rx primidone 50 mg tablet (Mysoline) 250 mg PO BID 08/17/23 09/19/23 History clonazepam 0.5 mg tablet 0.25 mg (1/2 x 0.5 mg) PO BID PRN 09/02/23 09/19/23 Rx anxiety #30 tabs ipratropium 0.5 mg-albuterol 3 mg 3 ml inhalation Q4H PRN wheezing 09/02/23 09/19/23 Rx (2.5 mg base)/3 mL nebulization #180 mL soln mirtazapine 7.5 mg tablet 7.5 mg PO HS #90 tabs 09/02/23 09/19/23 Rx nebulizer accessories #1 ea 09/02/23 09/18/23 Rx nebulizer and compressor #1 ea 09/02/23 09/18/23 Rx Patient History Medical History Symptomatic PVCs Osteoporosis Crohn's colitis Non-healing open wound of toe Failure of rotator cuff repair Tobacco abuse Hypokalemia HTN (hypertension) Crohns disease CAD (coronary artery disease) 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, [facility]: Rojas to LAD, SARIKA to RCA, saphenous vein graft to ramus intermedius, saphenous vein graft to om 2 Left shoulder pain Diarrhea Hypercholesterolemia Surgical History H/O ileostomy History of coronary artery bypass graft Family History Sister Breast cancer Colorectal cancer Mother Colorectal cancer Anxiety Myocardial infarction Father Myocardial infarction Other Cancer Heart disease Hypertension Denies family history of Ovarian cancer Social History Smoking Status: Former smoker Tobacco Type: Cigarettes Cigarettes Per Day: 10; Second Hand Exposure: No; Do You Dip or Chew Tobacco: No; Tobacco Cessation Education Requested by Patient: No Hx Alcohol Use: Yes Alcohol type: wine Hx Substance Use: No Preferred Language: Gambian Communication Ability: Effective Special Needs Tutor Required: No Beliefs That Will Affect Care: None marital status: / Current Living Situation: Family Current Living Situation Comment: Has been Ill and is staying with daughter current occupational status: retired Other Information That Helps Us Care for You: No Feels Safe at Home: Yes Safety Concerns: Feels Safe At This Time Childhood Exposure to Second-Hand Smoke: No Diet: regular caffeine: Yes Dental Care, Regularly: Yes Physical Activity Frequency: 3-4 Times per Week Seatbelt Use: always Sunscreen Use: Yes Assistive Devices: None Review of Systems Review of Systems: As per above Physical Exam Physical Exam: Constitutional: + acute distress HEENT: NCAT, no conjunctival injection CV: regular rhythm, no murmur appreciated, extremities well-perfused, no LE edema Resp: CTABL, no wheezes/rales/rhonchi appreciated, no increased work of breathing GI: diffuse tenderness, firm abdomen, absent bowel sounds MSK: no gross deformities appreciated Skin: warm, dry, no rash appreciated Neuro: alert, oriented, no focal neurologic deficit appreciated Results & Data Results & Data Vital Signs (Past 12 Hours) Vital Signs Temp Pulse Pulse Resp BP BP Pulse Ox 09/19/23 21:30 81 14 93 09/19/23 21:30 112/69 09/19/23 21:25 94/71 L 09/19/23 21:25 80 13 09/19/23 21:20 139/76 09/19/23 21:20 78 16 09/19/23 21:15 138/78 09/19/23 21:15 76 13 09/19/23 21:10 142/84 H 09/19/23 21:10 77 16 09/19/23 21:06 70 09/19/23 21:05 70 12 09/19/23 21:05 143/79 H 09/19/23 21:00 69 13 09/19/23 21:00 136/76 09/19/23 20:55 69 16 09/19/23 20:55 133/75 09/19/23 20:50 126/74 09/19/23 20:50 69 12 09/19/23 20:45 125/81 09/19/23 20:45 68 12 09/19/23 20:40 130/71 09/19/23 20:40 68 14 09/19/23 20:35 71 10 L 09/19/23 20:35 127/71 09/19/23 20:30 72 15 09/19/23 20:30 114/64 09/19/23 20:25 67 12 09/19/23 20:25 122/70 09/19/23 20:20 112/67 09/19/23 20:20 70 19 09/19/23 20:15 68 14 09/19/23 20:15 112/68 09/19/23 20:10 69 13 09/19/23 20:10 122/74 09/19/23 20:05 69 22 09/19/23 20:05 98/66 L 09/19/23 20:00 67 14 09/19/23 20:00 103/66 09/19/23 19:55 103/66 09/19/23 19:55 70 15 09/19/23 19:50 102/63 09/19/23 19:50 69 17 09/19/23 19:45 71 15 09/19/23 19:45 97/69 L 09/19/23 19:40 69 15 09/19/23 19:40 96/61 L 09/19/23 19:35 73 16 09/19/23 19:35 86/55 L 09/19/23 19:30 76 18 09/19/23 19:30 82/56 L 09/19/23 19:05 73 18 97 09/19/23 19:05 108/69 09/19/23 19:00 99/58 L 09/19/23 19:00 79 20 100 09/19/23 18:58 80 21 09/19/23 18:58 114/84 09/19/23 18:54 79 19 09/19/23 18:54 104/70 09/19/23 18:52 80 21 09/19/23 18:52 98/72 L 09/19/23 18:50 80 19 09/19/23 18:48 83/62 L 09/19/23 18:48 81 19 09/19/23 18:40 76 20 98 09/19/23 18:36 74 20 97 09/19/23 18:36 98/70 L 09/19/23 18:30 74 20 99 09/19/23 18:20 71 21 99 09/19/23 18:17 75 25 H 98/70 L 95 09/19/23 18:10 67 20 09/19/23 18:02 64 18 09/19/23 17:45 96 09/19/23 17:30 160/92 H 09/19/23 17:30 65 19 97 09/19/23 17:20 67 20 98 09/19/23 17:10 67 22 99 09/19/23 17:00 75 16 95 09/19/23 17:00 72 25 H 98 09/19/23 16:59 72 09/19/23 16:56 74 23 98 09/19/23 16:21 96 09/19/23 16:21 64 22 160/92 H 95 09/19/23 16:18 36.8 C 62 18 123/85 99 O2 Del Method 09/19/23 21:30 09/19/23 21:30 09/19/23 21:25 09/19/23 21:25 09/19/23 21:20 09/19/23 21:20 09/19/23 21:15 09/19/23 21:15 09/19/23 21:10 09/19/23 21:10 09/19/23 21:06 09/19/23 21:05 09/19/23 21:05 09/19/23 21:00 09/19/23 21:00 09/19/23 20:55 09/19/23 20:55 09/19/23 20:50 09/19/23 20:50 09/19/23 20:45 09/19/23 20:45 09/19/23 20:40 09/19/23 20:40 09/19/23 20:35 09/19/23 20:35 09/19/23 20:30 09/19/23 20:30 09/19/23 20:25 09/19/23 20:25 09/19/23 20:20 09/19/23 20:20 09/19/23 20:15 09/19/23 20:15 09/19/23 20:10 09/19/23 20:10 09/19/23 20:05 09/19/23 20:05 09/19/23 20:00 09/19/23 20:00 09/19/23 19:55 09/19/23 19:55 09/19/23 19:50 09/19/23 19:50 09/19/23 19:45 09/19/23 19:45 09/19/23 19:40 09/19/23 19:40 09/19/23 19:35 09/19/23 19:35 09/19/23 19:30 09/19/23 19:30 09/19/23 19:05 09/19/23 19:05 09/19/23 19:00 09/19/23 19:00 Room Air 09/19/23 18:58 09/19/23 18:58 09/19/23 18:54 09/19/23 18:54 09/19/23 18:52 09/19/23 18:52 09/19/23 18:50 09/19/23 18:48 09/19/23 18:48 09/19/23 18:40 Room Air 09/19/23 18:36 Room Air 09/19/23 18:36 09/19/23 18:30 Room Air 09/19/23 18:20 Room Air 09/19/23 18:17 Room Air 09/19/23 18:10 09/19/23 18:02 09/19/23 17:45 Room Air 09/19/23 17:30 09/19/23 17:30 Room Air 09/19/23 17:20 Room Air 09/19/23 17:10 Room Air 09/19/23 17:00 Room Air 09/19/23 17:00 Room Air 09/19/23 16:59 09/19/23 16:56 Room Air 09/19/23 16:21 Room Air 09/19/23 16:21 Room Air 09/19/23 16:18 Room Air Resident Activity Tracking Resident Involvement: Resident Care Provided Care Provided: Adult Hospital Medicine
[2023-09-19] MEDS: LACTATED RINGER'S 1,000 ML IV SCH (22:45)
[2023-09-20] MEDS: ONDANSETRON INJ 2 MG/ML 2 ML VIAL IV PRN (00:50)
[2023-09-20] MEDS: ACETAMINOPHEN 1,000 MG/100 ML VIAL IV PRN (01:06)
[2023-09-20] MEDS: ALBUMIN 25% 25 GM/100 ML VIAL IV ONE (01:18)
[2023-09-20] MEDS: LIDOCAINE 5% 1 PATCH TD STA (01:19)
--- NOTE | 2023-09-20 02:47 | Surgery Progress Note ---
Date of Service September 20, 2023 Assessment & Plan (1) SBO (small bowel obstruction): Plan: not rtesponding to conservative measures will take to OR for exploration consent obtained Admission and Anticipated Discharge Date Admission Date: September 19, 2023 Subjective pain worsening requiring albumin to remain normotensive Physical Exam Gastrointestinal (Abdomen): Percussion/Palpation: + abdomen tender (more tender) Results & Data Vital Signs (Past 12 Hours) Vital Signs Temp Pulse Pulse Pulse Resp BP BP 09/20/23 01:59 108/68 09/20/23 01:03 94/57 L 09/20/23 00:40 35.9 C L 84 18 88/55 L 09/20/23 00:26 88 09/19/23 23:50 92 H 17 98/70 L 09/19/23 23:02 86 16 107/60 09/19/23 22:45 96/63 L 09/19/23 22:45 88 18 09/19/23 22:43 90 17 09/19/23 22:41 94 H 19 09/19/23 22:30 89 16 09/19/23 22:30 90/73 L 09/19/23 22:16 88 19 09/19/23 22:00 83 13 09/19/23 22:00 102/70 09/19/23 21:45 81 16 09/19/23 21:45 108/69 09/19/23 21:30 81 14 09/19/23 21:30 112/69 09/19/23 21:25 94/71 L 09/19/23 21:25 80 13 09/19/23 21:20 139/76 09/19/23 21:20 78 16 09/19/23 21:15 138/78 09/19/23 21:15 76 13 09/19/23 21:10 142/84 H 09/19/23 21:10 77 16 09/19/23 21:06 70 09/19/23 21:05 70 12 09/19/23 21:05 143/79 H 09/19/23 21:00 69 13 09/19/23 21:00 136/76 09/19/23 20:55 69 16 09/19/23 20:55 133/75 09/19/23 20:50 126/74 09/19/23 20:50 69 12 09/19/23 20:45 125/81 03/02/24 20:45 68 12 09/19/23 20:40 130/71 09/19/23 20:40 68 14 09/19/23 20:35 71 10 L 09/19/23 20:35 127/71 09/19/23 20:30 72 15 09/19/23 20:30 114/64 09/19/23 20:25 67 12 09/19/23 20:25 122/70 09/19/23 20:20 112/67 09/19/23 20:20 70 19 09/19/23 20:15 68 14 09/19/23 20:15 112/68 09/19/23 20:10 69 13 09/19/23 20:10 122/74 09/19/23 20:05 69 22 09/19/23 20:05 98/66 L 09/19/23 20:00 67 14 09/19/23 20:00 103/66 09/19/23 19:55 103/66 09/19/23 19:55 70 15 09/19/23 19:50 102/63 09/19/23 19:50 69 17 09/19/23 19:45 71 15 09/19/23 19:45 97/69 L 09/19/23 19:40 69 15 09/19/23 19:40 96/61 L 09/19/23 19:35 73 16 09/19/23 19:35 86/55 L 09/19/23 19:30 76 18 09/19/23 19:30 82/56 L 09/19/23 19:05 73 18 09/19/23 19:05 108/69 09/19/23 19:00 99/58 L 09/19/23 19:00 79 20 09/19/23 18:58 80 21 09/19/23 18:58 114/84 09/19/23 18:54 79 19 09/19/23 18:54 104/70 09/19/23 18:52 80 21 09/19/23 18:52 98/72 L 09/19/23 18:50 80 19 09/19/23 18:48 83/62 L 09/19/23 18:48 81 19 09/19/23 18:40 76 20 09/19/23 18:36 74 20 09/19/23 18:36 98/70 L 09/19/23 18:30 74 20 09/19/23 18:20 71 21 09/19/23 18:17 75 25 H 98/70 L 09/19/23 18:10 67 20 09/19/23 18:02 64 18 09/19/23 17:45 09/19/23 17:30 160/92 H 09/19/23 17:30 65 19 09/19/23 17:20 67 20 09/19/23 17:10 67 22 09/19/23 17:00 75 16 09/19/23 17:00 72 25 H 09/19/23 16:59 72 09/19/23 16:56 74 23 09/19/23 16:21 09/19/23 16:21 64 22 160/92 H 09/19/23 16:18 36.8 C 62 18 123/85 Pulse Ox O2 Del Method 09/20/23 01:59 09/20/23 01:03 09/20/23 00:40 96 Room Air 09/20/23 00:26 09/19/23 23:50 96 09/19/23 23:02 94 09/19/23 22:45 09/19/23 22:45 09/19/23 22:43 98 09/19/23 22:41 09/19/23 22:30 96 09/19/23 22:30 09/19/23 22:16 94 09/19/23 22:00 90 09/19/23 22:00 09/19/23 21:45 93 09/19/23 21:45 09/19/23 21:30 93 09/19/23 21:30 09/19/23 21:25 09/19/23 21:25 09/19/23 21:20 09/19/23 21:20 09/19/23 21:15 09/19/23 21:15 09/19/23 21:10 09/19/23 21:10 09/19/23 21:06 09/19/23 21:05 09/19/23 21:05 09/19/23 21:00 09/19/23 21:00 09/19/23 20:55 09/19/23 20:55 09/19/23 20:50 09/19/23 20:50 09/19/23 20:45 09/19/23 20:45 09/19/23 20:40 09/19/23 20:40 09/19/23 20:35 09/19/23 20:35 09/19/23 20:30 09/19/23 20:30 09/19/23 20:25 09/19/23 20:25 09/19/23 20:20 09/19/23 20:20 09/19/23 20:15 09/19/23 20:15 09/19/23 20:10 09/19/23 20:10 09/19/23 20:05 09/19/23 20:05 09/19/23 20:00 09/19/23 20:00 09/19/23 19:55 09/19/23 19:55 09/19/23 19:50 09/19/23 19:50 09/19/23 19:45 09/19/23 19:45 09/19/23 19:40 09/19/23 19:40 09/19/23 19:35 09/19/23 19:35 09/19/23 19:30 09/19/23 19:30 09/19/23 19:05 97 09/19/23 19:05 09/19/23 19:00 09/19/23 19:00 100 Room Air 09/19/23 18:58 09/19/23 18:58 09/19/23 18:54 09/19/23 18:54 09/19/23 18:52 09/19/23 18:52 09/19/23 18:50 09/19/23 18:48 09/19/23 18:48 09/19/23 18:40 98 Room Air 09/19/23 18:36 97 Room Air 09/19/23 18:36 09/19/23 18:30 99 Room Air 09/19/23 18:20 99 Room Air 09/19/23 18:17 95 Room Air 09/19/23 18:10 09/19/23 18:02 09/19/23 17:45 96 Room Air 09/19/23 17:30 09/19/23 17:30 97 Room Air 09/19/23 17:20 98 Room Air 09/19/23 17:10 99 Room Air 09/19/23 17:00 95 Room Air 09/19/23 17:00 98 Room Air 09/19/23 16:59 09/19/23 16:56 98 Room Air 09/19/23 16:21 96 Room Air 09/19/23 16:21 95 Room Air 09/19/23 16:18 99 Room Air
--- NOTE | 2023-09-20 03:06 | Anesthesiology Consultation ---
Date of Service September 20, 2023 Assessment & Plan Chart Review Chart Review: Acceptable Risk for Surgery Consults Requested none History Surgery Operation Date: 09/20/23 03:30 Proposed Procedures p Exploratory Laparotomy - Antwon Baker MD Height/Weight Height: 5 ft 2 in Weight: 45.5 kg Allergies Allergy/AdvReac Type Severity Reaction Status Date / Time No Known Allergies Allergy Verified 09/19/23 20:15 Medications Home Medications Medication Instructions Recorded Confirmed Last Taken acetaminophen 500 mg tablet 1,000 mg PO Q6H PRN Pain 04/19/22 09/19/23 Unknown (Tylenol Extra Strength) omeprazole 20 mg capsule,delayed 20 mg PO DAILY 12/31/22 09/19/23 Unknown release escitalopram oxalate 20 mg tablet 20 mg PO DAILY #90 tabs 03/30/23 09/19/23 Unknown (Lexapro) teriparatide 20 mcg/dose (600 20 mcg (0.08 mL) subcut DAILY #2.4 05/12/23 09/19/23 Unknown mcg/2.4 mL) subcutaneous pen mL injector (Forteo) amiodarone 200 mg tablet 200 mg PO DAILY #90 tabs 06/04/23 09/19/23 Unknown metoprolol succinate 25 mg 25 mg PO DAILY #90 tabs 06/04/23 09/19/23 Unknown tablet,extended release 24 hr simvastatin 20 mg tablet 20 mg PO DAILY #90 tabs 07/28/23 09/19/23 Unknown primidone 50 mg tablet (Mysoline) 250 mg PO BID 08/17/23 09/19/23 Unknown clonazepam 0.5 mg tablet 0.25 mg (1/2 x 0.5 mg) PO BID PRN 09/02/23 09/19/23 Unknown anxiety #30 tabs ipratropium 0.5 mg-albuterol 3 mg 3 ml inhalation Q4H PRN wheezing 09/02/23 09/19/23 Unknown (2.5 mg base)/3 mL nebulization #180 mL soln mirtazapine 7.5 mg tablet 7.5 mg PO HS #90 tabs 09/02/23 09/19/23 Unknown nebulizer accessories #1 ea 09/02/23 09/18/23 Unknown nebulizer and compressor #1 ea 02/14/24 03/01/24 Unknown Active Medications Generic Name Dose Route Start Last Admin Trade Name Freq PRN Reason Stop Dose Admin Lactated Ringer's 1,000 mls @ 125 mls/hr 09/19/23 21:30 09/19/23 22:45 Lr IV 10/19/23 21:29 125 mls/hr .Q8H PRASHANT Administration Acetaminophen 1,000 mg in 100 mls @ 400 mls/hr 09/20/23 00:52 09/20/23 01:21 Ofirmev IV 09/23/23 00:51 Infused Q8H PRN Infusion Pain Albumin Human 25 gm in 100 mls @ 50 mls/hr 09/20/23 01:05 09/20/23 01:18 Albumin 25% IV 09/20/23 03:04 50 mls/hr ONE ONE Administration Ondansetron HCl 4 mg 09/20/23 00:33 09/20/23 00:50 Ondansetron Inj 2 Mg/Ml 2 Ml Vial IV 10/20/23 00:32 4 mg Q6H PRN Administration Nausea Past Medical History Medical History (Updated 09/20/23 @ 00:09 by Kylie Still) Symptomatic PVCs Osteoporosis Crohn's colitis Non-healing open wound of toe Failure of rotator cuff repair Tobacco abuse Hypokalemia HTN (hypertension) Crohns disease CAD (coronary artery disease) 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, [facility]: [place] to LAD, SARIKA to RCA, saphenous vein graft to ramus intermedius, saphenous vein graft to om 2 Left shoulder pain Diarrhea Hypercholesterolemia Past Family History Family History Sister Breast cancer Colorectal cancer Mother Colorectal cancer Anxiety Myocardial infarction Father Myocardial infarction Other Cancer Heart disease Hypertension Denies family history of Ovarian cancer Past Surgical History Surgical History H/O ileostomy History of coronary artery bypass graft Social History Smoking Status: Former smoker tobacco type: cigarettes Smoking cigarettes per day: 10 Do You Dip or Chew Tobacco: No Hx Alcohol Use: Yes Alcohol type: wine alcohol intake frequency: holidays/special occasions only Hx Substance Use: No substance use type: does not use Physical Exam Vital Signs Last Vital Signs Temp 35.9 C L 09/20/23 00:40 Pulse 84 09/20/23 00:40 Resp 18 09/20/23 00:40 BP 108/68 09/20/23 01:59 Pulse Ox 96 09/20/23 00:40 O2 Del Method Room Air 09/20/23 02:41 Testing Laboratory Results 09/19/23 16:35 09/19/23 16:35 PT 10.3 Seconds (9.0-12.0) 09/19/23 16:35 INR 0.9 (0.9-1.1) 09/19/23 16:35
[2023-09-20] MEDS ORDERED: ONDANSETRON INJ 2 MG/ML 2 ML VIAL IV PRN (03:10)
[2023-09-20] MEDS ORDERED: ePHEDrine sulfate 50 MG/ML AMP IV PRN (03:10)
[2023-09-20] MEDS ORDERED: ATROPINE SULFATE 0.1 MG/ML 10ML SYR IV PRN (03:10)
[2023-09-20] MEDS ORDERED: fentaNYL citrate PF 100 MCG/2 ML VIAL IV PRN (03:10)
[2023-09-20] MEDS ORDERED: PROMETHAZINE HCL 6.25 MG in SODIUM CHLORIDE 0.9% 50 ML IV PRN (03:10)
[2023-09-20] MEDS ORDERED: HYDROmorphone INJ 2 MG/ML SYR/VIAL IV PRN (03:10)
[2023-09-20] MEDS ORDERED: LIDOCAINE 2% 2 ML VIAL/AMP(20MG/ML) INFIL ONE (03:13)
[2023-09-20] MEDS ORDERED: ONDANSETRON INJ 2 MG/ML 2 ML VIAL ONE (03:13)
[2023-09-20] MEDS ORDERED: PROPOFOL IV EMULSION 10 MG/ML 20 ML VIAL IV ONE (03:13)
[2023-09-20] MEDS ORDERED: fentaNYL citrate PF 100 MCG/2 ML VIAL ONE (03:13)
[2023-09-20] MEDS ORDERED: ROCURONIUM BROMIDE 10 MG/ML 5 ML VIAL IV ONE (03:13)
[2023-09-20] MEDS ORDERED: GLYCOPYRROLATE 0.2 MG/ML VIAL ONE (03:14)
[2023-09-20] MEDS ORDERED: DEXAMETHASONE SOD INJ 4 MG/ML VIAL ONE (03:14)
[2023-09-20] MEDS ORDERED: NEOSTIGMINE METHYLSULFATE 1 MG/ML 10ML VIAL ONE (03:14)
--- NOTE | 2023-09-20 05:04 | Post Operative Brief Note ---
Immediate Post Op Note v1 Date of Surgery September 20, 2023 Pre & Post Diagnosis Operation Date: 09/20/23 03:30 Pre-Op Diagnosis: (1) Small bowel obstruction: Post-Op Diagnosis: (1) Small bowel obstruction: I identified the patient and participated in the time-out.: Yes Procedure Operation Date: 09/20/23 03:30 Actual Procedures p Exploratory Laparotomy, Small Bowel Resection, Reduction Internal Hernia, Repair of Enterotomy (Not Applicable) - Antwon Baker MD Surgeon Antwon Baker MD Federal Mediator none Estimated Blood Loss 75 Findings Consistent with Post-Op Diagnosis Small bowel strangulation through a mesenteric window in the small bowel. Approximately 50 cm of small bowel resection, with over 150 cm of small bowel left intact.
--- NOTE | 2023-09-20 05:15 | Operative Report ---
Post Operative Report Pre & Post Diagnosis Operation Date: 09/20/23 03:30 Pre-Op Diagnosis: (1) Small bowel obstruction: Post-Op Diagnosis: (1) Small bowel obstruction: Small bowel internal hernia and infarcted section of small bowel. I identified the patient and participated in the time-out.: Yes Procedure Operation Date: 09/20/23 03:30 Actual Procedures p Exploratory Laparotomy, Small Bowel Resection, Reduction Internal Hernia, Repair of Enterotomy (Not Applicable) - Antwon Baker MD Surgeon Antwon Baker MD Volunteer Assistant none Estimated Blood Loss 75 Findings Consistent with Post-Op Diagnosis Small bowel strangulated with an internal hernia. Specimens 50 cm of small bowel. Drains None Anesthesia Type General Complications Small bowel enterotomy repaired primarily. Indications This is a 72-year-old female who is 2 weeks status post exploratory lap laparotomy for a small bowel obstruction. She presented today with acute abdominal pain. Initially complained of abdominal pain but her vitals are stable she had normal lab values. An NG tube was placed and an attempt was made for conservative treatment. She began requiring more fluids and her pain worsened. She there for was consented for exploratory laparotomy. We went over the risks in detail. She consented for the surgery. Description of Procedure Patient was taken the OR and underwent excellent general endotracheal anesthesia. Abdomen is prepped and draped in normal sterile fashion. A midline incision was made through her previous midline incision. Her sutures were removed from her abdominal wall closure. The peritoneal cavity was entered. There was some turbid bloody fluid noted. A segment of small bowel was noted to be infarcted and herniated through an adhesive band. This was traced down to an internal hernia. The infarcted small bowel was reduced. Once this was reduced the small bowel was run from the ligament of Treitz down to the ileocecal valve. She had multiple adhesions and these were taken down with extensive lysis of adhesions. In doing this an enterotomy was made and this was repaired primarily with silk sutures. Attention was then turned to the small bowel which some began to become more viable. There was a single band which was taken down which had created the internal hernia. A ISIAH stapler was used to transect the small bowel proximally. It was then used to transect dissected distally. The distal segment was near previous small bowel resection and this had to be freed. Once this was freed a segment of viable viable bowel was noted near the previous anastomosis. The proximal bowel there was some ischemic changes to the end of this segment and subsequent resection was taken. A total of about 50 cm were resected. The small bowel left was over 150 cm. Using in a [id number] staple technique the small bowel was reanastomosed. The defect in the bowel was then closed with a ISIAH stapler. The mesenteric window was then closed with interrupted silk sutures. The abdomen was then irrigated out with 2 L of warm saline. The small bowel was once again run from the ligament of Treitz to the ileocecal valve with all the mesenteric defects closed and no further adhesive bands were noted. NG tube was checked and noted to be in good position. The fascia was then closed with a running PDS suture. [place] were used to close the skin. She tolerated procedure without complications. I attest to the content of the Intraoperative Record and any orders documented therein. Any exceptions are noted below.
[2023-09-20] MEDS ORDERED: PHENYLEPHRINE 100MCG/ML 10ML SYR IV ONE ×2 (05:21→05:45)
--- NOTE | 2023-09-20 05:32 | Critical Care Consultation ---
Date of Consultation September 20, 2023 Assessment & Plan (1) SBO (small bowel obstruction): (2) COPD (chronic obstructive pulmonary disease): (3) Symptomatic PVCs: (4) Essential tremor: (5) Generalized anxiety disorder: (6) CAD (coronary artery disease): (7) Crohns disease: (8) HTN (hypertension): (9) Hyperlipidemia: Plan Reason Critically Ill: 72 YOF with history of Chron's disease with multiple abdominal surgeries to include ostomy with takedown. Presented to EMD with acute onset of abdominal pain, failed conservative measures and taken to OR early this morning. To the ICU not on vasopressors and extubated. Neuro - MARISOL, acute pain from surgical procedure CAM ICU: CAT - When able to restart PO intake re-introduce Escitalopram - Follow neurological status postoperatively - Pain control tiered- IV Acetaminophen, Morphine tiered Cardiac - CAD with CABG x4, HTN, HLD, PVCs - CABG 2019- ECG on admission without STEMI - When able to tolerate PO intake restart home medications, for now while she is with NGT and in ICU and once hemodynamics allow consider adding back BB, if ectopy or arrhythmia place on IV amiodarone with or without bolus as she has been on this for years. - Follow hemodynamics- has received 5L Crystalloi prior to OR and 1.5 L Crystalloid in OR- required some vasopressor pushes during case and in PACU- Currently appropriate BP Respiratory - COPD - Previous smoker - Continue inhalers as she is extubated - Pain control to allow pulmonary toileting and CDB GI - SBO, Chron's Disease, - NPO with NGT in place - NGT verified manually in place during surgical case - Drains and Diet per primary service when appropriate RENAL/LYTES - No acute needs - Sage to gravity ENDO - NO acute needs at this time HEME - No acute needs ID - Continue with Zosyn per primary team - de-escelate when appropriate LINES/IV ACCESS - PIV zahraa harmoney Continue use of these lines DVT PROPHYLAXIS - SCDS, Chemoprophylaxis when hemostasis is ensured by primary service DISPO: ICU until hemodynamics and respiratory status proven stable. Currently extubated awake and without vasopressor requirements I have personally spent 40 minutes of critical care time in the direct management of this patient. This is a life/limb threatening event. This includes time spent evaluating patient, direct bedside care, chart review, placing orders, interpretation of diagnostic studies, discussion with consultants, patient, and family members, as well as other required patient management activities. This time is exclusive of all separately billable procedures,separate from and in addition to any other critical care service time. Thank you for allowing us to participate in the care of this patient. Please refer to my attending physician's documentation for any further recommendations and further development in the above plan of care. History of Present Illness Reason for Consultation: post-operative small bowel obstruction Requesting Physician: Antwon Baker Attending Physician: Bg Velasquez MD History of Present Illness 72 YOF: She is POD #0 from exploratory laparotomy with small bowel resection ~ 50cm and reduction of internal hernia. She presented to the EMD on 09/19/23 for acute onset of abdominal pain, she was evaluated in the EMD and conservative measures were undertaken with NGT, IVF, and Pain control. The patient continued with abdominal pain, increase in distention and hypotension. She was taken to the OR suite urgently. Patient also appears to have had a EX-LAP with lysis of adhesions performed [place] [facility] [place]. Patient arrives to the ICU extubated and hypotensive during recovery process requiring some push dose ephedrine via Anesthesiology. Patient awakens to voice, opens eyes, and moves all extremities. Patient has a medical history of: CAD with CABG x4 (2018), PE, HTN, Chron's Disease, Colon ulceration 08/09 and had colostomy performed with revision in 08/10, and takedown of ileostomy 04/10, symptomatic PVCs (on amiodarone), CODE: FULL Allergies Allergy/AdvReac Type Severity Reaction Status Date / Time No Known Allergies Allergy Verified 09/19/23 20:15 Home Medications Medication Instructions Recorded Confirmed Type acetaminophen 500 mg tablet 1,000 mg PO Q6H PRN Pain 04/19/22 09/19/23 History (Tylenol Extra Strength) omeprazole 20 mg capsule,delayed 20 mg PO DAILY 12/31/22 09/19/23 History release escitalopram oxalate 20 mg tablet 20 mg PO DAILY #90 tabs 03/30/23 09/19/23 Rx (Lexapro) teriparatide 20 mcg/dose (600 20 mcg (0.08 mL) subcut DAILY #2.4 05/12/23 09/19/23 Rx mcg/2.4 mL) subcutaneous pen mL injector (Forteo) amiodarone 200 mg tablet 200 mg PO DAILY #90 tabs 06/04/23 09/19/23 Rx metoprolol succinate 25 mg 25 mg PO DAILY #90 tabs 06/04/23 09/19/23 Rx tablet,extended release 24 hr simvastatin 20 mg tablet 20 mg PO DAILY #90 tabs 07/28/23 09/19/23 Rx primidone 50 mg tablet (Mysoline) 250 mg PO BID 08/17/23 09/19/23 History clonazepam 0.5 mg tablet 0.25 mg (1/2 x 0.5 mg) PO BID PRN 09/02/23 09/19/23 Rx anxiety #30 tabs ipratropium 0.5 mg-albuterol 3 mg 3 ml inhalation Q4H PRN wheezing 09/02/23 09/19/23 Rx (2.5 mg base)/3 mL nebulization #180 mL soln mirtazapine 7.5 mg tablet 7.5 mg PO HS #90 tabs 09/02/23 09/19/23 Rx nebulizer accessories #1 ea 09/02/23 09/18/23 Rx nebulizer and compressor #1 ea 09/02/23 09/18/23 Rx Patient History Medical History Symptomatic PVCs Osteoporosis Crohn's colitis Non-healing open wound of toe Failure of rotator cuff repair Tobacco abuse Hypokalemia HTN (hypertension) Crohns disease CAD (coronary artery disease) 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, [facility]: Rojas to LAD, SARIKA to RCA, saphenous vein graft to ramus intermedius, saphenous vein graft to om 2 Left shoulder pain Diarrhea Hypercholesterolemia Surgical History H/O ileostomy History of coronary artery bypass graft Family History Sister Breast cancer Colorectal cancer Mother Colorectal cancer Anxiety Myocardial infarction Father Myocardial infarction Other Cancer Heart disease Hypertension Denies family history of Ovarian cancer Social History Smoking Status: Former smoker Tobacco Type: Cigarettes Cigarettes Per Day: 10; Second Hand Exposure: No; Do You Dip or Chew Tobacco: No; Tobacco Cessation Education Requested by Patient: No Hx Alcohol Use: Yes Alcohol type: wine Hx Substance Use: No Preferred Language: Guatemalan Communication Ability: Effective Ward Aide Required: No Beliefs That Will Affect Care: None marital status: / Current Living Situation: Family Current Living Situation Comment: Has been Ill and is staying with daughter current occupational status: retired Other Information That Helps Us Care for You: No Feels Safe at Home: Yes Safety Concerns: Feels Safe At This Time Childhood Exposure to Second-Hand Smoke: No Diet: regular caffeine: Yes Dental Care, Regularly: Yes Physical Activity Frequency: 3-4 Times per Week Seatbelt Use: always Sunscreen Use: Yes Assistive Devices: Oxygen - Continuous Review of Systems Review of Systems: unable to obtain full ROS secondary to sedated effects from surgery Physical Exam Physical Exam: PHYSICAL EXAM: General: Post operative, opens eyes to voice, ENT: PERRL, mucous membranes dry Neuro: AAO x 2, speech clear and appropriate, strength intact bilaterally 5/5, sensation intact and equal all extremities Chest: equal rise and fall of the chest, no accessory muscle use, Clear to auscultation, on room air, Cardiac: Regular rate and rhythm, telemetry reviewed- NSR, skin warm dry, cap refill <3 seconds, peripheral pulses +2 no JVD, no murmur, no edema GI: Abdomen soft, midline incision CDI, NGT in place to LIWS : Sage to gravity Skin: no rash or erythema Results & Data Results & Data Vital Signs (Past 12 Hours) Vital Signs Temp Pulse Pulse Pulse Resp BP BP 09/20/23 04:02 09/20/23 02:41 09/20/23 01:59 108/68 09/20/23 01:03 94/57 L 09/20/23 00:40 35.9 C L 84 18 88/55 L 09/20/23 00:26 88 09/19/23 23:50 92 H 17 98/70 L 09/19/23 23:02 86 16 107/60 09/19/23 22:45 96/63 L 09/19/23 22:45 88 18 09/19/23 22:43 90 17 09/19/23 22:41 94 H 19 09/19/23 22:30 89 16 09/19/23 22:30 90/73 L 09/19/23 22:16 88 19 09/19/23 22:00 83 13 09/19/23 22:00 102/70 09/19/23 21:45 81 16 09/19/23 21:45 108/69 09/19/23 21:30 81 14 09/19/23 21:30 112/69 09/19/23 21:25 94/71 L 09/19/23 21:25 80 13 09/19/23 21:20 139/76 09/19/23 21:20 78 16 09/19/23 21:15 138/78 09/19/23 21:15 76 13 09/19/23 21:10 142/84 H 09/19/23 21:10 77 16 09/19/23 21:06 70 09/19/23 21:05 70 12 09/19/23 21:05 143/79 H 09/19/23 21:00 69 13 09/19/23 21:00 136/76 09/19/23 20:55 69 16 09/19/23 20:55 133/75 09/19/23 20:50 126/74 09/19/23 20:50 69 12 09/19/23 20:45 125/81 09/19/23 20:45 68 12 09/19/23 20:40 130/71 09/19/23 20:40 68 14 09/19/23 20:35 71 10 L 09/19/23 20:35 127/71 09/19/23 20:30 72 15 09/19/23 20:30 114/64 09/19/23 20:25 67 12 09/19/23 20:25 122/70 09/19/23 20:20 112/67 09/19/23 20:20 70 19 09/19/23 20:15 68 14 09/19/23 20:15 112/68 09/19/23 20:10 69 13 09/19/23 20:10 122/74 09/19/23 20:05 69 22 09/19/23 20:05 98/66 L 09/19/23 20:00 67 14 09/19/23 20:00 103/66 03/02/24 19:55 103/66 09/19/23 19:55 70 15 09/19/23 19:50 102/63 09/19/23 19:50 69 17 09/19/23 19:45 71 15 09/19/23 19:45 97/69 L 09/19/23 19:40 69 15 09/19/23 19:40 96/61 L 09/19/23 19:35 73 16 09/19/23 19:35 86/55 L 09/19/23 19:30 76 18 09/19/23 19:30 82/56 L 09/19/23 19:05 73 18 09/19/23 19:05 108/69 09/19/23 19:00 99/58 L 09/19/23 19:00 79 20 09/19/23 18:58 80 21 09/19/23 18:58 114/84 09/19/23 18:54 79 19 09/19/23 18:54 104/70 09/19/23 18:52 80 21 09/19/23 18:52 98/72 L 09/19/23 18:50 80 19 09/19/23 18:48 83/62 L 09/19/23 18:48 81 19 09/19/23 18:40 76 20 09/19/23 18:36 74 20 09/19/23 18:36 98/70 L 09/19/23 18:30 74 20 09/19/23 18:20 71 21 09/19/23 18:17 75 25 H 98/70 L 09/19/23 18:10 67 20 09/19/23 18:02 64 18 09/19/23 17:45 Pulse Ox O2 Del Method 09/20/23 04:02 Room Air 09/20/23 02:41 Room Air 09/20/23 01:59 09/20/23 01:03 09/20/23 00:40 96 Room Air 09/20/23 00:26 09/19/23 23:50 96 09/19/23 23:02 94 09/19/23 22:45 09/19/23 22:45 09/19/23 22:43 98 09/19/23 22:41 09/19/23 22:30 96 09/19/23 22:30 09/19/23 22:16 94 03/02/24 22:00 90 09/19/23 22:00 09/19/23 21:45 93 09/19/23 21:45 09/19/23 21:30 93 09/19/23 21:30 09/19/23 21:25 09/19/23 21:25 09/19/23 21:20 09/19/23 21:20 09/19/23 21:15 09/19/23 21:15 09/19/23 21:10 09/19/23 21:10 09/19/23 21:06 09/19/23 21:05 09/19/23 21:05 09/19/23 21:00 09/19/23 21:00 09/19/23 20:55 09/19/23 20:55 09/19/23 20:50 09/19/23 20:50 09/19/23 20:45 09/19/23 20:45 09/19/23 20:40 09/19/23 20:40 09/19/23 20:35 09/19/23 20:35 09/19/23 20:30 09/19/23 20:30 09/19/23 20:25 09/19/23 20:25 09/19/23 20:20 09/19/23 20:20 09/19/23 20:15 09/19/23 20:15 09/19/23 20:10 09/19/23 20:10 09/19/23 20:05 09/19/23 20:05 09/19/23 20:00 09/19/23 20:00 09/19/23 19:55 09/19/23 19:55 09/19/23 19:50 09/19/23 19:50 09/19/23 19:45 09/19/23 19:45 09/19/23 19:40 09/19/23 19:40 09/19/23 19:35 09/19/23 19:35 09/19/23 19:30 09/19/23 19:30 09/19/23 19:05 97 09/19/23 19:05 09/19/23 19:00 09/19/23 19:00 100 Room Air 09/19/23 18:58 09/19/23 18:58 09/19/23 18:54 09/19/23 18:54 09/19/23 18:52 09/19/23 18:52 09/19/23 18:50 09/19/23 18:48 09/19/23 18:48 09/19/23 18:40 98 Room Air 09/19/23 18:36 97 Room Air 09/19/23 18:36 09/19/23 18:30 99 Room Air 09/19/23 18:20 99 Room Air 09/19/23 18:17 95 Room Air 09/19/23 18:10 09/19/23 18:02 09/19/23 17:45 96 Room Air Laboratory Results Abnormal lab results 09/19/23 09/19/23 09/19/23 Range/Units 16:35 19:33 21:58 RBC 4.04 L (4.20-5.40) M/uL RDW Std Deviation 49.8 H (36.4-46.3) fL RDW Coeff of Harish 14.6 H (11.5-14.5) % BUN/Creatinine Ratio 26.8 H (10-20) Lactate 4.6 H* 3.9 H* (0.4-2.0) mmol/L Lipase 85 H (11-82) U/L Diagnostic Findings Abdomen/Pelvis CT 09/19/23 16:[address] WITH IV CONTRAST CT DOSE: 249.62 mGy.cm HISTORY: Acute mid abdominal pain mid-abdominal pain s/p SBO surgery TECHNIQUE: Multiaxial CT images of the abdomen and pelvis were performed following the IV administration of 84 cc of Optiray, A dose lowering technique was utilized adhering to the principles of ALARA. COMPARISON STUDY: 08/16/2023 FINDINGS: Median sternotomy. Mild patchy bibasilar groundglass densities are likely infectious or inflammatory. There is no free air. Unremarkable spleen, pancreas and right adrenal gland. Borderline pancreatic ductal dilation redemonstrated measuring up to 4 mm. Unchanged nodular left adrenal gland thickening. The liver is within normal limits. Filling defects noted within the superior mesenteric and portal veins favoring mixing artifact. Unremarkable kidneys. There are a few probable cysts of the kidneys which are mostly subcentimeter. Moderate bladder wall thickening which is partially decompressed. Extensive atherosclerosis of the aorta with multifocal stenoses of the mesenteric and renal arteries. No lymphadenopathy identified. Moderate-sized hiatal hernia. Moderate abdominal pelvic ascites has progressed. Postoperative changes compatible subtotal colectomy with prior ileostomy takedown. There is twisting of the mesentery with high-grade small bowel obstruction. Fluid and stool-filled loops of small bowel measure up to approximately 4.5 cm. Several loops of small bowel demonstrate circumferential wall thickening. Large duodenal diverticulum. Transition point is noted within the central abdomen with twisting of the mesentery, image 1:30 series 3. There is an apparent additional transition point also seen on image 130 is body wall edema.. Prominent mesenteric edema. L1 compression deformity with kyphoplasty. IMPRESSION: 1. High-grade small bowel obstruction with twisting of the mesentery and at least two transition points suggestive of a closed loop obstruction. Surgical consultation is needed. 2. Mesenteric and body wall edema with moderate ascites. 3. Prior subtotal colectomy. 4. Extensive atherosclerosis. 5. Probable mixing artifact within the superior mesenteric and portal veins. Thrombus considered less likely. Findings could be correlated with ultrasound if of further clinical concern. Findings were discussed with Dr. Rivera on 09/19/2023 at 6:35 PM ACT 112: Negative or not required by law. The above report was generated using voice recognition software. It may contain grammatical, syntax or spelling errors. Electronically signed by: Carl Beckwith M.D. 09/19/2023 6:37 PM Chest X-Ray 09/19/23 19:35 XR chest 1V portable HISTORY: 72 years-old Female ng placement acute bowel obstruction COMPARISON: CT of same day TECHNIQUE: AP view of the chest FINDINGS: Cardiomediastinal and hilar silhouettes are unchanged. Median sternotomy with atherosclerosis of the aorta. Chronic interstitial coarsening of the lungs. No pneumothorax, pleural effusion or overt pulmonary edema. Status post placement of an enteric tube with distal tip coiled within the hiatal hernia positioned superiorly. Dilated loops of small bowel in the upper abdomen. No acute frac ture. IMPRESSION: Hiatal hernia contains a malpositioned enteric tube. Repositioning with follow-up imaging is needed. ACT 112: Negative or not required by law. The above report was generated using voice recognition software. It may contain grammatical, syntax or spelling errors. Electronically signed by: Carl Beckwith M.D. 09/19/2023 7:52 PM Chest X-Ray 09/19/23 19:45 XR chest 1V portable HISTORY: 72 years-old Female NG tube confirmation status post placement of an enteric tube COMPARISON: Chest radiograph of same day at 7:34 PM TECHNIQUE: AP view of the chest FINDINGS: Cardiomediastinal and hilar silhouettes are unchanged. Median sternotomy with atherosclerosis of the aorta. Chronic interstitial coarsening of the lungs. No pneumothorax, pleural effusion or overt pulmonary edema. Repositioned enteric tube is noted coiled within the mid esophagus with distal tip projected superiorly at the level of the superior most sternotomy wire. Hiatal hernia. Dilated loops of small bowel in the upper abdomen. No acute fracture. IMPRESSION: 1. Repositioned enteric tube is coiled within the mid esophagus with distal tip projected superiorly. Repositioning with follow-up imaging is needed. 2. Hiatal hernia with small bowel obstruction. ACT 112: Negative or not required by law. The above report was generated using voice recognition software. It may contain grammatical, syntax or spelling errors. Electronically signed by: Carl Beckwith M.D. 09/19/2023 8:16 PM Medications Administered Home Medications acetaminophen 500 mg tablet (Tylenol Extra Strength) 1,000 mg PO Q6H PRN Pain 04/19/22 [History Confirmed 09/19/23] omeprazole 20 mg capsule,delayed release 20 mg PO DAILY 12/31/22 [History Confirmed 09/19/23] escitalopram oxalate 20 mg tablet (Lexapro) 20 mg PO DAILY #90 tabs 03/30/23 [Rx Confirmed 09/19/23] teriparatide 20 mcg/dose (600 mcg/2.4 mL) subcutaneous pen injector (Forteo) 20 mcg (0.08 mL) subcut DAILY #2.4 mL 05/12/23 [Rx Confirmed 09/19/23] amiodarone 200 mg tablet 200 mg PO DAILY #90 tabs 06/04/23 [Rx Confirmed 09/19/23] metoprolol succinate 25 mg tablet,extended release 24 hr 25 mg PO DAILY #90 tabs 06/04/23 [Rx Confirmed 09/19/23] simvastatin 20 mg tablet 20 mg PO DAILY #90 tabs 07/28/23 [Rx Confirmed 09/19/23] primidone 50 mg tablet (Mysoline) 250 mg PO BID 08/17/23 [History Confirmed 09/19/23] clonazepam 0.5 mg tablet 0.25 mg (1/2 x 0.5 mg) PO BID PRN anxiety #30 tabs 09/02/23 [Rx Confirmed 09/19/23] ipratropium 0.5 mg-albuterol 3 mg (2.5 mg base)/3 mL nebulization soln 3 ml inhalation Q4H PRN wheezing #180 mL 09/02/23 [Rx Confirmed 09/19/23] mirtazapine 7.5 mg tablet 7.5 mg PO HS #90 tabs 09/02/23 [Rx Confirmed 09/19/23] nebulizer accessories #1 ea 09/02/23 [Rx Confirmed 09/18/23] nebulizer and compressor #1 ea 09/02/23 [Rx Confirmed 09/18/23] Active Medications Atropine Sulfate (Atropine Sulfate 0.1 Mg/Ml 10ml Syr) 0.5 mg IV Q1M PRN PRN Reason: PACU Use-HR<40 &/or Bradycardi Stop: 09/20/23 11:10 Ephedrine Sulfate (Ephedrine Sulfate 50 Mg/Ml Amp) 5 mg IV Q5M PRN PRN Reason: PACU Use Only-SBP<90 mmHg Stop: 09/20/23 11:10 Fentanyl Citrate (Fentanyl Citrate Pf 100 Mcg/2 Ml Vial) 50 mcg IV Q5M PRN PRN Reason: PACU Use Only-Pain Stop: 09/20/23 11:10 Hydromorphone HCl (Hydromorphone Inj 2 Mg/Ml Syr/Vial) 0.5 mg IV Q5M PRN PRN Reason: PACU Use Only-Pain Stop: 09/20/23 11:11 Piperacillin Sod/Tazobactam (Sod 4.5 gm/ Dextrose) 100 mls @ 25 mls/hr IV Q8H PRASHANT; Protocol Stop: 09/30/23 02:29 Lactated Ringer's (Lr) 1,000 mls @ 125 mls/hr IV .Q8H PRASHANT Stop: 10/19/23 21:29 Last Admin: 09/19/23 22:45 Dose: 125 mls/hr Pantoprazole Sodium 40 mg/ (Syringe) 10 mls @ 5 mls/min IV DAILY@1100 PRASHANT Stop: 10/20/23 10:59 Acetaminophen (Ofirmev) 1,000 mg in 100 mls @ 400 mls/hr IV Q8H PRN PRN Reason: Pain Stop: 09/23/23 00:51 Last Infusion: 09/20/23 01:21 Dose: Infused Promethazine HCl 6.25 mg/ (Sodium Chloride) 50.25 mls @ 204 mls/hr IV ONCE PRN PRN Reason: PACU Use Only-Nausea/Vomiting Stop: 09/20/23 11:11 Miscellaneous (Remove Lidoderm Patch) 1 each N/A 1300 ONE Stop: 09/20/23 13:01 Morphine Sulfate (Morphine Sulfate 4 Mg/Ml 1 Ml Carp\Vial) 4 mg IV Q3H PRN PRN Reason: Pain (6,7,8,9,10) Stop: 10/04/23 00:32 Morphine Sulfate (Morphine Sulfate 2 Mg/Ml Carp) 2 mg IV Q3H PRN PRN Reason: Pain (1,2,3,4,5) & Pre PT Stop: 10/04/23 00:32 Ondansetron HCl (Ondansetron Inj 2 Mg/Ml 2 Ml Vial) 4 mg IV Q6H PRN PRN Reason: Nausea Stop: 10/20/23 00:32 Last Admin: 09/20/23 00:50 Dose: 4 mg Ondansetron HCl (Ondansetron Inj 2 Mg/Ml 2 Ml Vial) 4 mg IV ONCE PRN PRN Reason: PACU Use Only-Nausea/Vomiting Stop: 09/20/23 11:11 Coding Level of Care Code 72657 CRITICAL CARE 1ST 30-74M Diagnoses SBO (small bowel obstruction) K56.609 COPD (chronic obstructive pulmonary disease) J44.9 Symptomatic PVCs I49.3 Essential tremor G25.0 Generalized anxiety disorder F41.1 CAD (coronary artery disease) I25.10 Crohn's disease without complication, unspecified gastrointestinal tract location K50.912 Digestive disease complication type: with intestinal obstruction Gastrointestinal tract location: unspecified location Primary hypertension I10 Hypertension type: primary hypertension Hyperlipidemia, unspecified hyperlipidemia type E78.5 Hyperlipidemia type: unspecified (7) Crohns disease Digestive disease complication type: with intestinal obstruction Gastrointestinal tract location: unspecified location Qualified Code(s): K50.912 - Crohn's disease, unspecified, with intestinal obstruction (8) HTN (hypertension) Hypertension type: primary hypertension Qualified Code(s): I10 - Essential (primary) hypertension (9) Hyperlipidemia Hyperlipidemia type: unspecified Qualified Code(s): E78.5 - Hyperlipidemia, unspecified
[2023-09-20] MEDS ORDERED: ePHEDrine sulfate 50 MG/ML AMP ONE (05:45)
--- NOTE | 2023-09-20 06:33 | Anesthesiology Progress Note ---
Date of Service September 20, 2023 Anesthesia Post Procedure Vital Signs Vital Signs: Temp Pulse Pulse Pulse Resp BP BP 09/20/23 06:15 75 16 119/62 09/20/23 06:05 82 14 92/57 L 09/20/23 05:55 85 12 109/68 09/20/23 05:45 79 16 121/59 L 09/20/23 05:35 88 18 95/52 L 09/20/23 05:25 75 18 92/59 L 09/20/23 05:19 36.0 C L 80 16 95/52 L 09/20/23 04:02 09/20/23 02:41 09/20/23 01:59 108/68 09/20/23 01:03 94/57 L 09/20/23 00:40 35.9 C L 84 18 88/55 L 09/20/23 00:26 88 09/19/23 23:50 92 H 17 98/70 L 09/19/23 23:02 86 16 107/60 09/19/23 22:45 96/63 L 09/19/23 22:45 88 18 09/19/23 22:43 90 17 09/19/23 22:41 94 H 19 09/19/23 22:30 89 16 09/19/23 22:30 90/73 L 09/19/23 22:16 88 19 09/19/23 22:00 83 13 09/19/23 22:00 102/70 09/19/23 21:45 81 16 09/19/23 21:45 108/69 09/19/23 21:30 81 14 09/19/23 21:30 112/69 09/19/23 21:25 94/71 L 09/19/23 21:25 80 13 09/19/23 21:20 139/76 09/19/23 21:20 78 16 09/19/23 21:15 138/78 09/19/23 21:15 76 13 09/19/23 21:10 142/84 H 09/19/23 21:10 77 16 09/19/23 21:06 70 09/19/23 21:05 70 12 09/19/23 21:05 143/79 H 09/19/23 21:00 69 13 09/19/23 21:00 136/76 09/19/23 20:55 69 16 09/19/23 20:55 133/75 09/19/23 20:50 126/74 09/19/23 20:50 69 12 09/19/23 20:45 125/81 09/19/23 20:45 68 12 09/19/23 20:40 130/71 09/19/23 20:40 68 14 09/19/23 20:35 71 10 L 09/19/23 20:35 127/71 09/19/23 20:30 72 15 09/19/23 20:30 114/64 09/19/23 20:25 67 12 09/19/23 20:25 122/70 09/19/23 20:20 112/67 09/19/23 20:20 70 19 09/19/23 20:15 68 14 09/19/23 20:15 112/68 09/19/23 20:10 69 13 09/19/23 20:10 122/74 09/19/23 20:05 69 22 09/19/23 20:05 98/66 L 09/19/23 20:00 67 14 09/19/23 20:00 103/66 09/19/23 19:55 103/66 09/19/23 19:55 70 15 09/19/23 19:50 102/63 09/19/23 19:50 69 17 09/19/23 19:45 71 15 09/19/23 19:45 97/69 L 09/19/23 19:40 69 15 09/19/23 19:40 96/61 L 09/19/23 19:35 73 16 09/19/23 19:35 86/55 L 09/19/23 19:30 76 18 09/19/23 19:30 82/56 L 09/19/23 19:05 73 18 09/19/23 19:05 108/69 09/19/23 19:00 99/58 L 09/19/23 19:00 79 20 09/19/23 18:58 80 21 09/19/23 18:58 114/84 09/19/23 18:54 79 19 09/19/23 18:54 104/70 09/19/23 18:52 80 21 09/19/23 18:52 98/72 L 09/19/23 18:50 80 19 09/19/23 18:48 83/62 L 09/19/23 18:48 81 19 09/19/23 18:40 76 20 09/19/23 18:36 74 20 09/19/23 18:36 98/70 L 09/19/23 18:30 74 20 09/19/23 18:20 71 21 09/19/23 18:17 75 25 H 98/70 L 09/19/23 18:10 67 20 09/19/23 18:02 64 18 09/19/23 17:45 09/19/23 17:30 160/92 H 09/19/23 17:30 65 19 09/19/23 17:20 67 20 09/19/23 17:10 67 22 09/19/23 17:00 75 16 09/19/23 17:00 72 25 H 09/19/23 16:59 72 09/19/23 16:56 74 23 09/19/23 16:21 09/19/23 16:21 64 22 160/92 H 09/19/23 16:18 36.8 C 62 18 123/85 Pulse Ox O2 Del Method O2 Flow Rate 09/20/23 06:15 100 Nasal Cannula 2 09/20/23 06:05 100 Nasal Cannula 2 09/20/23 05:55 100 Nasal Cannula 2 09/20/23 05:45 100 Nasal Cannula 2 09/20/23 05:35 100 Nasal Cannula 2 09/20/23 05:25 100 Oxymask 3 09/20/23 05:19 100 Room Air 09/20/23 04:02 Room Air 09/20/23 02:41 Room Air 09/20/23 01:59 09/20/23 01:03 09/20/23 00:40 96 Room Air 09/20/23 00:26 09/19/23 23:50 96 09/19/23 23:02 94 09/19/23 22:45 09/19/23 22:45 09/19/23 22:43 98 09/19/23 22:41 09/19/23 22:30 96 09/19/23 22:30 09/19/23 22:16 94 09/19/23 22:00 90 09/19/23 22:00 09/19/23 21:45 93 09/19/23 21:45 09/19/23 21:30 93 09/19/23 21:30 09/19/23 21:25 09/19/23 21:25 09/19/23 21:20 09/19/23 21:20 09/19/23 21:15 09/19/23 21:15 09/19/23 21:10 09/19/23 21:10 09/19/23 21:06 09/19/23 21:05 09/19/23 21:05 09/19/23 21:00 09/19/23 21:00 09/19/23 20:55 09/19/23 20:55 09/19/23 20:50 09/19/23 20:50 09/19/23 20:45 09/19/23 20:45 09/19/23 20:40 09/19/23 20:40 09/19/23 20:35 09/19/23 20:35 09/19/23 20:30 09/19/23 20:30 09/19/23 20:25 09/19/23 20:25 09/19/23 20:20 09/19/23 20:20 09/19/23 20:15 09/19/23 20:15 09/19/23 20:10 09/19/23 20:10 09/19/23 20:05 09/19/23 20:05 09/19/23 20:00 09/19/23 20:00 09/19/23 19:55 09/19/23 19:55 09/19/23 19:50 09/19/23 19:50 09/19/23 19:45 09/19/23 19:45 09/19/23 19:40 09/19/23 19:40 09/19/23 19:35 09/19/23 19:35 09/19/23 19:30 09/19/23 19:30 09/19/23 19:05 97 09/19/23 19:05 09/19/23 19:00 09/19/23 19:00 100 Room Air 09/19/23 18:58 09/19/23 18:58 09/19/23 18:54 09/19/23 18:54 09/19/23 18:52 09/19/23 18:52 09/19/23 18:50 09/19/23 18:48 09/19/23 18:48 09/19/23 18:40 98 Room Air 09/19/23 18:36 97 Room Air 09/19/23 18:36 09/19/23 18:30 99 Room Air 09/19/23 18:20 99 Room Air 09/19/23 18:17 95 Room Air 09/19/23 18:10 09/19/23 18:02 09/19/23 17:45 96 Room Air 09/19/23 17:30 09/19/23 17:30 97 Room Air 09/19/23 17:20 98 Room Air 09/19/23 17:10 99 Room Air 09/19/23 17:00 95 Room Air 09/19/23 17:00 98 Room Air 09/19/23 16:59 09/19/23 16:56 98 Room Air 09/19/23 16:21 96 Room Air 09/19/23 16:21 95 Room Air 09/19/23 16:18 99 Room Air Pain Intensity Abdomen: Pain Intensity: 2 Transfer of Care Handoff Completed per policy Notes Mental Status: alert / awake / arousable and participated in evaluation Patient Amnestic to Procedure: Yes Nausea / Vomiting: adequately controlled Pain: adequately controlled Airway Patency, RR, SpO2: stable & adequate BP & HR: stable & adequate Hydration State: stable & adequate Anesthetic Complications: no major complications apparent
[2023-09-20] MEDS: PIPERACILLIN/TAZOBACTAM 4.5 GM in DEXTROSE 5% MINI-B 100 ML IV SCH (06:50)
--- NOTE | 2023-09-20 07:31 | XRay Report ---
XR chest 1V portable HISTORY: 72 years-old Female NG placement status post placement of an enteric tube COMPARISON: Chest CT 09/19/2023, chest CT 10/14/2022 TECHNIQUE: AP view of the chest FINDINGS: Emphysema with pleural parenchymal scarring. Azygos lobe and fissure. Unchanged nodular foci within t he upper lung zones measuring up to 10 mm in the right lung apex. Median sternotomy with CABG. No pne umothorax, pleural effusion or pulmonary edema. Distal tip of enteric tube projects over the gastric body below the diaphragm. Hiatal hernia. IMPRESSION: 1. Distal tip of the enteric tube extends below the level of the diaphragm and projects over the cyndy cesario body. 2. Emphysema with chronic interstitial coarsening and nodular foci of the lung apices redemonstrated. ACT 112: Negative or not required by law. The above report was generated using voice recognition software. It may contain grammatical, syntax o r spelling errors. Electronically signed by: Carl Beckwith M.D. 09/20/2023 7:30 AM
[2023-09-20 07:52] LABS: Albumin Globulin Ratio 1.7 (0.9-2); BUN Creatinine Ratio 23.4 (10-20); Bilirubin,Total 0.3 mg/dl (0.2-1.0); Calcium 7.4 mg/dl (8.6-10.3); Creatinine Clr Calc Pharmacy 39.4 ml/min; Est GFR (African American) 70.7 ml/min; Globulin 1.8 gm/dl (2.5-4.0); Potassium 4.7 mmol/L (3.5-5.1); Total Protein 4.8 gm/dl (6.0-8.3)
[2023-09-20 07:53] LABS: Hematocrit (blood only) 25.8 % (37.0-47.0); Hemoglobin 7.9 g/dl (12.0-16.0); Mean Corpuscular Hemoglobin 30.6 pg (25.0-34.0); Mean Corpuscular Hgb Conc 30.6 g/dL (32.0-36.0); Mean Platelet Volume 9.9 fL (9.4-12.4); Platelet Count 227 K/uL (130-400); RDW Coefficient of Variation 14.9 % (11.5-14.5); Red Blood Count 2.58 M/uL (4.20-5.40); White Blood Count 11.96 K/ul (4.8-10.8)
[2023-09-20 08:05] LABS: Basophils # (auto) 0.02 K/uL (0.00-0.20); Basophils % (auto) 0.2 %; Eosinophils # (auto) 0.01 K/uL (0.00-0.50); Eosinophils % (auto) 0.1 %; Immature Granulocytes # (auto) 0.14 K/uL (0.01-0.20); Immature Granulocytes % (auto) 1.2 %; Lymphocytes # (auto) 1.23 K/uL (1.20-3.40); Lymphocytes % (auto) 10.3 %; Monocytes % (auto) 5.9 %; Neutrophils # (auto) 9.86 K/uL (1.40-6.50); Neutrophils % (auto) 82.3 %; RBC Morphology Unremarkable
[2023-09-20] MEDS: ICU Protocol for HYPERglycemia SCH (08:40)
--- NOTE | 2023-09-20 08:54 | Electrocardiogram Report ---
Test Reason : Blood Pressure : / mmHG Vent. Rate : 081 BPM Atrial Rate : 081 BPM P-R Int : 110 ms QRS Dur : 096 ms QT Int : 412 ms P-R-T Axes : 067 -08 075 degrees QTc Int : 478 ms Sinus rhythm with short WI Left atrial enlargement Minimal voltage criteria for LVH, may be normal variant ( Marshallberg product ) Nonspecific T wave abnormality Septal leads Minor ST depression in Inferior leads Abnormal ECG When compared with ECG of 20-AUG-2023 10:43, ST now depressed in Inferior leads T wave inversion less evident in Anterior leads QT has lengthened Confirmed by Barry Carlos ([id number]) on 09/20/2023 8:54:23 AM Referred By: REFERRED SELF Confirmed By:Barry Carlos
[2023-09-20 09:34] LABS: Appearance Urine Clear (Clear); Bacteria Urine Automated Negative (Negative); Bilirubin Urine Negative (Negative); Blood Urine Negative (Negative); Color Urine Yellow; Glucose Urine UA Negative (Negative); Ketones Urine Negative (Negative); Leukocyte Esterase Urine Negative (Negative); Nitrite Urine Negative (Negative); Protein Urine 1+ (Negative); RBC Urine Automated 0-4 /hpf (0-4); Specific Gravity Urine > 1.045 (1.000-1.030); Urobilinogen Urine Negative (Negative)
[2023-09-20] MEDS ORDERED: Nursing to Pharmacy Communication SCH (10:30)
[2023-09-20] MEDS: MoRPHine SULFATE 2 MG/ML CARP IV PRN (11:33)
[2023-09-20] MEDS: PANTOprazole 40 MG in SYRINGE 0 ML IV SCH (11:35)
--- NOTE | 2023-09-20 11:57 | Surgery Progress Note ---
Date of Service September 20, 2023 Assessment & Plan (1) SBO (small bowel obstruction): (2) Crohns disease: Plan She seems to be doing okay postop day #1 status post exploratory laparotomy with lysis of adhesions, small bowel resection for internal hernia. She was just operated on at [facility] 2 weeks ago. Attempted to transfer to [facility] back to [facility] yesterday evening but they refused transfer. Pressures are somewhat soft today. Is requiring IV fluid resuscitation. I had a discussion with her and her family. If her pressures continue to be soft or she requires pressors, we will attempt to transfer her to her she once again for a higher level of care given her comorbidities and Crohn's disease. Will continue to monitor her. Continue NG tube, IV fluids, NPO. Continue pain control. Admission and Anticipated Discharge Date Admission Date: September 19, 2023 Subjective POD #1 s/p exploratory laparotomy, lysis of adhesions, small bowel resection for incarcerated internal hernia. Doing fairly well this morning. Some pain. No nausea or vomiting. NG tube in place. No fevers. Soft blood pressures but not on pressors. Physical Exam Physical Exam: NAD A&Ox3 AVFSS slight tachycardia Abdomen soft, TTP; dressing in place dressing C/D/I NGT in place Results & Data Vital Signs (Past 12 Hours) Vital Signs Temp Pulse Pulse Pulse Resp BP BP 09/20/23 11:30 105 H 17 09/20/23 11:30 121/70 09/20/23 11:20 106 H 22 09/20/23 11:15 107/62 09/20/23 11:15 105 H 18 09/20/23 11:10 104 H 28 H 09/20/23 11:00 100/69 09/20/23 11:00 111 H 21 09/20/23 11:00 36.4 C L 09/20/23 10:50 107 H 20 09/20/23 10:45 92/59 L 09/20/23 10:45 109 H 20 09/20/23 10:40 109 H 17 09/20/23 10:30 108/67 09/20/23 10:30 103 H 17 09/20/23 10:20 108 H 18 09/20/23 10:15 105 H 17 09/20/23 10:15 104/63 09/20/23 10:10 112 H 17 09/20/23 10:00 105 H 17 09/20/23 10:00 97/61 L 09/20/23 09:50 109 H 17 09/20/23 09:45 100 H 15 09/20/23 09:45 110/69 09/20/23 09:40 119 H 18 09/20/23 09:36 111 H 20 09/20/23 09:36 96/59 L 09/20/23 09:33 112 H 19 09/20/23 09:33 74/54 L 09/20/23 09:30 69/48 L 09/20/23 09:30 125 H 17 09/20/23 09:20 104 H 17 09/20/23 09:16 106 H 19 09/20/23 09:16 87/51 L 09/20/23 09:10 103 H 16 09/20/23 09:00 103 H 16 09/20/23 09:00 112/64 09/20/23 08:55 102 H 17 09/20/23 08:55 100/60 09/20/23 08:50 115 H 17 09/20/23 08:50 85/59 L 09/20/23 08:45 103 H 16 09/20/23 08:45 99/65 L 09/20/23 08:40 113 H 17 09/20/23 08:40 89/56 L 09/20/23 08:30 115 H 21 09/20/23 08:30 83/55 L 09/20/23 08:25 115/90 09/20/23 08:25 114 H 17 09/20/23 08:20 115 H 19 09/20/23 08:10 79/49 L 09/20/23 08:10 106 H 14 09/20/23 08:05 101 H 14 09/20/23 08:05 89/59 L 09/20/23 08:00 97/64 L 09/20/23 08:00 101 H 14 09/20/23 08:00 09/20/23 08:00 36.4 C L 09/20/23 07:55 86/67 L 09/20/23 07:55 108 H 11 L 09/20/23 07:50 97 H 18 09/20/23 07:50 94/63 L 09/20/23 07:45 86/58 L 09/20/23 07:45 103 H 17 09/20/23 07:41 111 H 19 09/20/23 07:41 81/48 L 09/20/23 07:40 107 H 23 09/20/23 07:31 93/57 L 09/20/23 07:31 97 H 17 09/20/23 07:30 99 H 22 09/20/23 07:25 92 H 17 09/20/23 07:25 104/63 09/20/23 07:20 89 19 09/20/23 07:20 91/49 L 09/20/23 07:15 96/62 L 09/20/23 07:15 90 15 09/20/23 07:11 99 H 14 09/20/23 07:11 93/52 L 09/20/23 07:10 98 H 21 09/20/23 07:00 117/67 09/20/23 07:00 83 22 09/20/23 06:55 87 13 09/20/23 06:55 121/62 09/20/23 06:50 100/74 09/20/23 06:50 94 H 20 09/20/23 06:45 74 13 09/20/23 06:45 125/70 09/20/23 06:40 73 16 09/20/23 06:40 127/68 09/20/23 06:15 75 16 119/62 09/20/23 06:05 82 14 92/57 L 09/20/23 05:55 85 12 109/68 09/20/23 05:45 79 16 121/59 L 09/20/23 05:35 88 18 95/52 L 09/20/23 05:25 75 18 92/59 L 09/20/23 05:19 36.0 C L 80 16 95/52 L 09/20/23 04:02 09/20/23 02:41 09/20/23 01:59 108/68 09/20/23 01:03 94/57 L 09/20/23 00:40 35.9 C L 84 18 88/55 L 09/20/23 00:26 88 Pulse Ox O2 Del Method O2 Flow Rate 09/20/23 11:30 100 09/20/23 11:30 09/20/23 11:20 100 09/20/23 11:15 09/20/23 11:15 100 09/20/23 11:10 100 09/20/23 11:00 09/20/23 11:00 100 09/20/23 11:00 09/20/23 10:50 100 09/20/23 10:45 09/20/23 10:45 100 09/20/23 10:40 100 09/20/23 10:30 09/20/23 10:30 100 09/20/23 10:20 100 09/20/23 10:15 100 09/20/23 10:15 09/20/23 10:10 100 09/20/23 10:00 100 09/20/23 10:00 09/20/23 09:50 100 09/20/23 09:45 100 09/20/23 09:45 09/20/23 09:40 100 09/20/23 09:36 100 09/20/23 09:36 09/20/23 09:33 93 09/20/23 09:33 09/20/23 09:30 09/20/23 09:30 98 09/20/23 09:20 100 09/20/23 09:16 100 09/20/23 09:16 09/20/23 09:10 100 09/20/23 09:00 100 09/20/23 09:00 09/20/23 08:55 100 09/20/23 08:55 09/20/23 08:50 100 09/20/23 08:50 09/20/23 08:45 100 09/20/23 08:45 09/20/23 08:40 100 09/20/23 08:40 09/20/23 08:30 100 09/20/23 08:30 09/20/23 08:25 09/20/23 08:25 09/20/23 08:20 99 09/20/23 08:10 09/20/23 08:10 100 09/20/23 08:05 100 09/20/23 08:05 09/20/23 08:00 09/20/23 08:00 100 09/20/23 08:00 Nasal Cannula 2 09/20/23 08:00 09/20/23 07:55 09/20/23 07:55 100 09/20/23 07:50 100 09/20/23 07:50 09/20/23 07:45 09/20/23 07:45 100 09/20/23 07:41 100 09/20/23 07:41 09/20/23 07:40 99 09/20/23 07:31 09/20/23 07:31 100 09/20/23 07:30 94 09/20/23 07:25 100 09/20/23 07:25 09/20/23 07:20 100 09/20/23 07:20 09/20/23 07:15 09/20/23 07:15 100 09/20/23 07:11 100 09/20/23 07:11 09/20/23 07:10 100 09/20/23 07:00 09/20/23 07:00 100 09/20/23 06:55 100 09/20/23 06:55 09/20/23 06:50 09/20/23 06:50 100 09/20/23 06:45 100 09/20/23 06:45 09/20/23 06:40 100 09/20/23 06:40 09/20/23 06:15 100 Nasal Cannula 2 09/20/23 06:05 100 Nasal Cannula 2 09/20/23 05:55 100 Nasal Cannula 2 09/20/23 05:45 100 Nasal Cannula 2 09/20/23 05:35 100 Nasal Cannula 2 09/20/23 05:25 100 Oxymask 3 09/20/23 05:19 100 Room Air 09/20/23 04:02 Room Air 09/20/23 02:41 Room Air 09/20/23 01:59 09/20/23 01:03 09/20/23 00:40 96 Room Air 09/20/23 00:26 Laboratory Results 09/20/23 09/20/23 09/20/23 Range/Units 11:20 09:15 08:10 WBC (4.8-10.8) K/ul RBC (4.20-5.40) M/uL Hgb (12.0-16.0) g/dl Hct (37.0-47.0) % MCV (80.0-100.0) fL MCH (25.0-34.0) pg MCHC (32.0-36.0) g/dL RDW Std Deviation (36.4-46.3) fL RDW Coeff of Harish (11.5-14.5) % Plt Count (130-400) K/uL MPV (9.4-12.4) fL Immature Gran % (Auto) % Neut % (Auto) % Lymph % (Auto) % Love % (Auto) % Eos % (Auto) % Baso % (Auto) % Neut # (Auto) (1.40-6.50) K/uL Lymph # (Auto) (1.20-3.40) K/uL Love # (Auto) (0.11-0.59) K/uL Eos # (Auto) (0.00-0.50) K/uL Baso # (Auto) (0.00-0.20) K/uL Immature Gran # (Auto) (0.01-0.20) K/uL RBC Morphology PT (9.0-12.0) Seconds INR (0.9-1.1) Sodium (136-145) mmol/L Potassium (3.5-5.1) mmol/L Chloride (98-107) mmol/L Carbon Dioxide (21-32) mmol/L Anion Gap (3-11) BUN (6-23) mg/dl Creatinine (0.6-1.2) mg/dl Est Cr Clr Drug Dosing Est GFR ( Amer) ml/min Est GFR (Non-Af Amer) ml/min BUN/Creatinine Ratio (10-20) Glucose (70-99(Fasting)) mg/dl Lactate 5.2 H* 5.3 H* (0.4-2.0) mmol/L Calcium (8.6-10.3) mg/dl Total Bilirubin (0.2-1.0) mg/dl AST (13-39) U/L ALT (7-52) U/L Alkaline Phosphatase (34-104) U/L Troponin I High Sens (0-14) pg/ml Total Protein (6.0-8.3) gm/dl Albumin (3.4-5.0) gm/dl Globulin (2.5-4.0) gm/dl Albumin/Globulin Ratio (0.9-2) Lipase (11-82) U/L Urine Color Yellow Urine Appearance Clear (Clear) Urine pH 6.0 (4.5-7.5) Ur Specific [place] > 1.045 H (1.000-1.030) Urine Protein 1+ H (Negative) Urine Glucose (UA) Negative (Negative) Urine Ketones Negative (Negative) Urine Blood Negative (Negative) Urine Nitrite Negative (Negative) Urine Bilirubin Negative (Negative) Urine Urobilinogen Negative (Negative) Ur Leukocyte Esterase Negative (Negative) Urine WBC (Auto) 1-5 (0-5) /hpf Urine RBC (Auto) 0-4 (0-4) /hpf U Hyaline Cast (Auto) 1-5 (0-5) /lpf U Epithel Cells (Auto) 5-10 H (0-5) /lpf Urine Bacteria (Auto) Negative (Negative) Ur Renal Epithelial Cell Not Reportable Nasal Screen MRSA (PCR) (Negative) 09/20/23 09/20/23 09/19/23 Range/Units 08:05 07:08 21:58 WBC 11.96 H (4.8-10.8) K/ul RBC 2.58 L (4.20-5.40) M/uL Hgb 7.9 L D (12.0-16.0) g/dl Hct 25.8 L (37.0-47.0) % MCV 100.0 D (80.0-100.0) fL MCH 30.6 (25.0-34.0) pg MCHC 30.6 L (32.0-36.0) g/dL RDW Std Deviation 54.0 H (36.4-46.3) fL RDW Coeff of Harish 14.9 H (11.5-14.5) % Plt Count 227 (130-400) K/uL MPV 9.9 (9.4-12.4) fL Immature Gran % (Auto) 1.2 % Neut % (Auto) 82.3 % Lymph % (Auto) 10.3 % Love % (Auto) 5.9 % Eos % (Auto) 0.1 % Baso % (Auto) 0.2 % Neut # (Auto) 9.86 H (1.40-6.50) K/uL Lymph # (Auto) 1.23 (1.20-3.40) K/uL Love # (Auto) 0.70 H (0.11-0.59) K/uL Eos # (Auto) 0.01 (0.00-0.50) K/uL Baso # (Auto) 0.02 (0.00-0.20) K/uL Immature Gran # (Auto) 0.14 (0.01-0.20) K/uL RBC Morphology Unremarkable PT (9.0-12.0) Seconds INR (0.9-1.1) Sodium 138 (136-145) mmol/L Potassium 4.7 (3.5-5.1) mmol/L Chloride 108 H (98-107) mmol/L Carbon Dioxide 21 (21-32) mmol/L Anion Gap 9 (3-11) BUN 22 (6-23) mg/dl Creatinine 0.94 (0.6-1.2) mg/dl Est Cr Clr Drug Dosing 39.4 Est GFR ( Amer) 70.7 ml/min Est GFR (Non-Af Amer) 61.0 ml/min BUN/Creatinine Ratio 23.4 H (10-20) Glucose 117 H (70-99(Fasting)) mg/dl Lactate 7.4 H* 3.9 H* (0.4-2.0) mmol/L Calcium 7.4 L D (8.6-10.3) mg/dl Total Bilirubin 0.3 (0.2-1.0) mg/dl AST 19 (13-39) U/L ALT 12 (7-52) U/L Alkaline Phosphatase 46 (34-104) U/L Troponin I High Sens (0-14) pg/ml Total Protein 4.8 L D (6.0-8.3) gm/dl Albumin 3.0 L (3.4-5.0) gm/dl Globulin 1.8 L (2.5-4.0) gm/dl Albumin/Globulin Ratio 1.7 (0.9-2) Lipase (11-82) U/L Urine Color Urine Appearance (Clear) Urine pH (4.5-7.5) Ur Specific [place] (1.000-1.030) Urine Protein (Negative) Urine Glucose (UA) (Negative) Urine Ketones (Negative) Urine Blood (Negative) Urine Nitrite (Negative) Urine Bilirubin (Negative) Urine Urobilinogen (Negative) Ur Leukocyte Esterase (Negative) Urine WBC (Auto) (0-5) /hpf Urine RBC (Auto) (0-4) /hpf U Hyaline Cast (Auto) (0-5) /lpf U Epithel Cells (Auto) (0-5) /lpf Urine Bacteria (Auto) (Negative) Ur Renal Epithelial Cell Nasal Screen MRSA (PCR) Negative (Negative) 09/19/23 09/19/23 Range/Units 19:33 16:35 WBC 6.72 (4.8-10.8) K/ul RBC 4.04 L (4.20-5.40) M/uL Hgb 12.3 (12.0-16.0) g/dl Hct 37.7 (37.0-47.0) % MCV 93.3 (80.0-100.0) fL MCH 30.4 (25.0-34.0) pg MCHC 32.6 (32.0-36.0) g/dL RDW Std Deviation 49.8 H (36.4-46.3) fL RDW Coeff of Harish 14.6 H (11.5-14.5) % Plt Count 387 (130-400) K/uL MPV 9.4 (9.4-12.4) fL Immature Gran % (Auto) 0.4 % Neut % (Auto) 53.8 % Lymph % (Auto) 35.6 % Love % (Auto) 6.5 % Eos % (Auto) 3.1 % Baso % (Auto) 0.6 % Neut # (Auto) 3.61 (1.40-6.50) K/uL Lymph # (Auto) 2.39 (1.20-3.40) K/uL Love # (Auto) 0.44 (0.11-0.59) K/uL Eos # (Auto) 0.21 (0.00-0.50) K/uL Baso # (Auto) 0.04 (0.00-0.20) K/uL Immature Gran # (Auto) 0.03 (0.01-0.20) K/uL RBC Morphology PT 10.3 (9.0-12.0) Seconds INR 0.9 (0.9-1.1) Sodium 136 (136-145) mmol/L Potassium 4.2 (3.5-5.1) mmol/L Chloride 99 (98-107) mmol/L Carbon Dioxide 28 (21-32) mmol/L Anion Gap 9 (3-11) BUN 19 (6-23) mg/dl Creatinine 0.71 (0.6-1.2) mg/dl Est Cr Clr Drug Dosing Not Reportable Est GFR ( Amer) 99.3 ml/min Est GFR (Non-Af Amer) 85.7 ml/min BUN/Creatinine Ratio 26.8 H (10-20) Glucose 81 (70-99(Fasting)) mg/dl Lactate 4.6 H* 1.3 (0.4-2.0) mmol/L Calcium 9.4 (8.6-10.3) mg/dl Total Bilirubin 0.2 (0.2-1.0) mg/dl AST 14 (13-39) U/L ALT 11 (7-52) U/L Alkaline Phosphatase 83 (34-104) U/L Troponin I High Sens 4.2 (0-14) pg/ml Total Protein 7.8 (6.0-8.3) gm/dl Albumin 4.1 (3.4-5.0) gm/dl Globulin 3.7 (2.5-4.0) gm/dl Albumin/Globulin Ratio 1.1 (0.9-2) Lipase 85 H (11-82) U/L Urine Color Urine Appearance (Clear) Urine pH (4.5-7.5) Ur Specific [place] (1.000-1.030) Urine Protein (Negative) Urine Glucose (UA) (Negative) Urine Ketones (Negative) Urine Blood (Negative) Urine Nitrite (Negative) Urine Bilirubin (Negative) Urine Urobilinogen (Negative) Ur Leukocyte Esterase (Negative) Urine WBC (Auto) (0-5) /hpf Urine RBC (Auto) (0-4) /hpf U Hyaline Cast (Auto) (0-5) /lpf U Epithel Cells (Auto) (0-5) /lpf Urine Bacteria (Auto) (Negative) Ur Renal Epithelial Cell Nasal Screen MRSA (PCR) (Negative) (2) Crohns disease Digestive disease complication type: with intestinal obstruction Gastrointestinal tract location: unspecified location Qualified Code(s): K50.912 - Crohn's disease, unspecified, with intestinal obstruction
--- NOTE | 2023-09-20 11:58 | Hospitalist Progress Note ---
Date of Service September 20, 2023 Assessment & Plan (1) SBO (small bowel obstruction): Plan: A few days ago, patient had an exploratory laparotomy for a small bowel obstruction with adhesive band which was taken down at [facility]. She did well postop until yesterday when she developed a sudden onset of significant abdominal pain General surgery was consulted She is now status post exploratory laparotomy, small bowel resection and reduction of internal hernia repair of enterotomy She is stable postsurgery (2) HTN (hypertension): Plan: Blood pressure is soft right now Will hold antihypertensives for now. (3) Generalized anxiety disorder: Plan: Resume home medications (4) Crohns disease: Plan Rest of management per surgery, thanks for the consult. Admission and Anticipated Discharge Date Admission Date: September 19, 2023 Subjective Patient seen and examined in the ICU, she is stable postsurgery, denies any pains. Review of Systems Review of Systems: All systems reviewed are negative, apart from the ones contained in the history. Physical Exam Physical Exam: The patient is awake, alert and oriented 3, well developed and well nourished, normocephalic and atraumatic, lying in bed and in no acute distress. HEENT--PERRL, EOMI, mucous membranes and oropharynx mildly dry Neck--supple. No JVD. No bruits. Thyroid normal, trachea midline, no adenopathy. Heart--normal S1 and S2. No murmurs, rubs or gallops. Lungs--clear bilaterally, no respiratory distress, no accessory muscle use. Abdomen--normal bowel sounds and soft. Extremities--no cyanosis or clubbing. No edema. Dermatologic--normal skin turgor, normal color, no abnormal lymph nodes, no rash. Neurologic--cranial nerves II through XII grossly intact. Rheumatologic--normal range of motion. Psychiatric--normal affect. Results & Data Results & Data Vital Signs (Past 12 Hours) Vital Signs Temp Pulse Pulse Pulse Resp BP BP 09/20/23 11:30 105 H 17 09/20/23 11:30 121/70 09/20/23 11:20 106 H 22 09/20/23 11:15 107/62 09/20/23 11:15 105 H 18 09/20/23 11:10 104 H 28 H 09/20/23 11:00 100/69 09/20/23 11:00 111 H 21 09/20/23 11:00 97.5 F L 09/20/23 10:50 107 H 20 09/20/23 10:45 92/59 L 09/20/23 10:45 109 H 20 09/20/23 10:40 109 H 17 09/20/23 10:30 108/67 09/20/23 10:30 103 H 17 09/20/23 10:20 108 H 18 09/20/23 10:15 105 H 17 09/20/23 10:15 104/63 09/20/23 10:10 112 H 17 09/20/23 10:00 105 H 17 09/20/23 10:00 97/61 L 09/20/23 09:50 109 H 17 09/20/23 09:45 100 H 15 09/20/23 09:45 110/69 09/20/23 09:40 119 H 18 09/20/23 09:36 111 H 20 09/20/23 09:36 96/59 L 09/20/23 09:33 112 H 19 09/20/23 09:33 74/54 L 09/20/23 09:30 69/48 L 09/20/23 09:30 125 H 17 09/20/23 09:20 104 H 17 09/20/23 09:16 106 H 19 09/20/23 09:16 87/51 L 09/20/23 09:10 103 H 16 09/20/23 09:00 103 H 16 09/20/23 09:00 112/64 09/20/23 08:55 102 H 17 09/20/23 08:55 100/60 09/20/23 08:50 115 H 17 09/20/23 08:50 85/59 L 09/20/23 08:45 103 H 16 09/20/23 08:45 99/65 L 09/20/23 08:40 113 H 17 09/20/23 08:40 89/56 L 09/20/23 08:30 115 H 21 09/20/23 08:30 83/55 L 09/20/23 08:25 115/90 09/20/23 08:25 114 H 17 09/20/23 08:20 115 H 19 09/20/23 08:10 79/49 L 09/20/23 08:10 106 H 14 09/20/23 08:05 101 H 14 09/20/23 08:05 89/59 L 09/20/23 08:00 97/64 L 09/20/23 08:00 101 H 14 09/20/23 08:00 09/20/23 08:00 97.5 F L 09/20/23 07:55 86/67 L 09/20/23 07:55 108 H 11 L 09/20/23 07:50 97 H 18 09/20/23 07:50 94/63 L 09/20/23 07:45 86/58 L 09/20/23 07:45 103 H 17 09/20/23 07:41 111 H 19 09/20/23 07:41 81/48 L 09/20/23 07:40 107 H 23 09/20/23 07:31 93/57 L 09/20/23 07:31 97 H 17 09/20/23 07:30 99 H 22 09/20/23 07:25 92 H 17 09/20/23 07:25 104/63 09/20/23 07:20 89 19 09/20/23 07:20 91/49 L 09/20/23 07:15 96/62 L 09/20/23 07:15 90 15 09/20/23 07:11 99 H 14 09/20/23 07:11 93/52 L 09/20/23 07:10 98 H 21 09/20/23 07:00 117/67 09/20/23 07:00 83 22 09/20/23 06:55 87 13 09/20/23 06:55 121/62 09/20/23 06:50 100/74 09/20/23 06:50 94 H 20 09/20/23 06:45 74 13 09/20/23 06:45 125/70 09/20/23 06:40 73 16 09/20/23 06:40 127/68 09/20/23 06:15 75 16 119/62 09/20/23 06:05 82 14 92/57 L 09/20/23 05:55 85 12 109/68 09/20/23 05:45 79 16 121/59 L 09/20/23 05:35 88 18 95/52 L 09/20/23 05:25 75 18 92/59 L 09/20/23 05:19 96.8 F L 80 16 95/52 L 09/20/23 04:02 09/20/23 02:41 09/20/23 01:59 108/68 09/20/23 01:03 94/57 L 09/20/23 00:40 96.6 F L 84 18 88/55 L 09/20/23 00:26 88 Pulse Ox O2 Del Method O2 Flow Rate 09/20/23 11:30 100 09/20/23 11:30 09/20/23 11:20 100 09/20/23 11:15 09/20/23 11:15 100 09/20/23 11:10 100 09/20/23 11:00 09/20/23 11:00 100 09/20/23 11:00 09/20/23 10:50 100 09/20/23 10:45 09/20/23 10:45 100 09/20/23 10:40 100 09/20/23 10:30 09/20/23 10:30 100 09/20/23 10:20 100 09/20/23 10:15 100 09/20/23 10:15 09/20/23 10:10 100 09/20/23 10:00 100 09/20/23 10:00 09/20/23 09:50 100 09/20/23 09:45 100 09/20/23 09:45 09/20/23 09:40 100 09/20/23 09:36 100 09/20/23 09:36 09/20/23 09:33 93 09/20/23 09:33 09/20/23 09:30 09/20/23 09:30 98 09/20/23 09:20 100 09/20/23 09:16 100 09/20/23 09:16 09/20/23 09:10 100 09/20/23 09:00 100 09/20/23 09:00 09/20/23 08:55 100 09/20/23 08:55 09/20/23 08:50 100 09/20/23 08:50 09/20/23 08:45 100 09/20/23 08:45 09/20/23 08:40 100 09/20/23 08:40 09/20/23 08:30 100 09/20/23 08:30 09/20/23 08:25 09/20/23 08:25 09/20/23 08:20 99 09/20/23 08:10 09/20/23 08:10 100 09/20/23 08:05 100 09/20/23 08:05 09/20/23 08:00 09/20/23 08:00 100 09/20/23 08:00 Nasal Cannula 2 09/20/23 08:00 09/20/23 07:55 09/20/23 07:55 100 09/20/23 07:50 100 09/20/23 07:50 09/20/23 07:45 09/20/23 07:45 100 09/20/23 07:41 100 09/20/23 07:41 09/20/23 07:40 99 09/20/23 07:31 09/20/23 07:31 100 09/20/23 07:30 94 09/20/23 07:25 100 09/20/23 07:25 09/20/23 07:20 100 09/20/23 07:20 09/20/23 07:15 09/20/23 07:15 100 09/20/23 07:11 100 09/20/23 07:11 09/20/23 07:10 100 09/20/23 07:00 09/20/23 07:00 100 09/20/23 06:55 100 09/20/23 06:55 09/20/23 06:50 09/20/23 06:50 100 09/20/23 06:45 100 09/20/23 06:45 09/20/23 06:40 100 09/20/23 06:40 09/20/23 06:15 100 Nasal Cannula 2 09/20/23 06:05 100 Nasal Cannula 2 09/20/23 05:55 100 Nasal Cannula 2 09/20/23 05:45 100 Nasal Cannula 2 09/20/23 05:35 100 Nasal Cannula 2 09/20/23 05:25 100 Oxymask 3 09/20/23 05:19 100 Room Air 09/20/23 04:02 Room Air 09/20/23 02:41 Room Air 09/20/23 01:59 09/20/23 01:03 09/20/23 00:40 96 Room Air 09/20/23 00:26 PG Care Time/CCT Total # of Minutes Spent Total Time Spent with Patient: Total time spent is greater than 50% in coordination of care (as documented) at patient's floor/unit and/or counseling patient: Coding Level of Care Code 20306 SUB INP/OBS CARE 235MIN Diagnoses SBO (small bowel obstruction) K56.609 Primary hypertension I10 Hypertension type: primary hypertension Generalized anxiety disorder F41.1 Crohn's disease without complication, unspecified gastrointestinal tract location K50.912 Digestive disease complication type: with intestinal obstruction Gastrointestinal tract location: unspecified location Time Spent (min) 35 (2) HTN (hypertension) Hypertension type: primary hypertension Qualified Code(s): I10 - Essential (primary) hypertension (4) Crohns disease Digestive disease complication type: with intestinal obstruction Gastrointestinal tract location: unspecified location Qualified Code(s): K50.912 - Crohn's disease, unspecified, with intestinal obstruction
[2023-09-20] MEDS: MoRPHine SULFATE 4 MG/ML 1 ML CARP\\VIAL IV PRN (13:09)
[2023-09-20] MEDS: HYDROmorphone INJ 0.5 MG/0.5 ML SYR ONE (14:08)
[2023-09-20] MEDS: HYDROmorphone INJ 1 MG/ML SYRINGE IV STA (17:57)
--- NOTE | 2023-09-20 21:14 | Billing Data ---
Date of Service September 20, 2023 Coding Level of Care Code 25569 INT INP/OBS CARE
[2023-09-21] MEDS: HYDROmorphone INJ 0.5 MG/0.5 ML SYR IV PRN ×3 (02:07→23:03)
--- NOTE | 2023-09-21 06:46 | Surgery Progress Note ---
Date of Service September 21, 2023 Assessment & Plan (1) SBO (small bowel obstruction): (2) Crohns disease: Plan She seems to be doing okay postop day #1 status post exploratory laparotomy with lysis of adhesions, small bowel resection for internal hernia. She was just operated on at [place] 2 weeks ago. Attempted to transfer to [place] back to [facility] yesterday evening but they refused transfer. Pressures are somewhat soft today. Is requiring IV fluid resuscitation. I had a discussion with her and her family. If her pressures continue to be soft or she requires pressors, we will attempt to transfer her to her she once again for a higher level of care given her comorbidities and Crohn's disease. Will continue to monitor her. Continue NG tube, IV fluids, NPO. Continue pain control. POD #2 s/p ex lap with lysis of adhesions, small bowel resection for internal hernia.. Blood pressure stable. No flatus. Will continue NG tube, n.p.o. status. Encourage out of bed ambulation. Encourage incentive spirometry. Awaiting bowel function. Admission and Anticipated Discharge Date Admission Date: September 19, 2023 Subjective improving POD #2, still significant pain, no nausea or vomiting, no fevers Physical Exam Physical Exam: NAD A&Ox3 AVFSS slight tachycardia Abdomen soft, TTP midline incision with miranda, C/D/I NGT in place Results & Data Vital Signs (Past 12 Hours) Vital Signs Temp Pulse Resp BP Pulse Ox O2 Del Method 09/21/23 05:00 36.8 C 84 21 121/48 L 98 09/21/23 04:00 85 21 116/51 L 100 09/21/23 03:00 87 17 115/50 L 99 Room Air 09/21/23 02:00 36.7 C 90 18 117/59 L 100 Room Air 09/21/23 01:01 85 09/21/23 01:00 85 18 109/51 L 100 Room Air 09/21/23 00:00 36.8 C 87 13 115/54 L 100 Room Air 09/20/23 23:00 36.7 C 82 18 126/51 L 100 Room Air 09/20/23 22:06 36.8 C 112 H 19 92/54 L 91 Room Air 09/20/23 21:00 36.8 C 100 H 18 112/57 L 99 Room Air 09/20/23 20:00 Room Air 09/20/23 20:00 36.8 C 94 H 17 115/58 L 98 Room Air 09/20/23 19:00 36.8 C 100 H 18 112/58 L 99 Room Air Laboratory Results 09/21/23 09/21/23 09/20/23 Range/Units 06:17 00:04 12:05 WBC Pending (4.8-10.8) K/ul RBC Pending (4.20-5.40) M/uL Hgb Pending (12.0-16.0) g/dl Hct Pending (37.0-47.0) % MCV Pending (80.0-100.0) fL MCH Pending (25.0-34.0) pg MCHC Pending (32.0-36.0) g/dL RDW Std Deviation (36.4-46.3) fL RDW Coeff of Harish (11.5-14.5) % Plt Count Pending (130-400) K/uL MPV (9.4-12.4) fL Immature Gran % (Auto) % Neut % (Auto) % Lymph % (Auto) % [place] % (Auto) % Eos % (Auto) % Baso % (Auto) % Neut # (Auto) (1.40-6.50) K/uL Lymph # (Auto) (1.20-3.40) K/uL [place] # (Auto) (0.11-0.59) K/uL Eos # (Auto) (0.00-0.50) K/uL Baso # (Auto) (0.00-0.20) K/uL Immature Gran # (Auto) (0.01-0.20) K/uL RBC Morphology Sodium Pending (136-145) mmol/L Potassium Pending (3.5-5.1) mmol/L Chloride Pending (98-107) mmol/L Carbon Dioxide Pending (21-32) mmol/L Anion Gap Pending (3-11) BUN Pending (6-23) mg/dl Creatinine Pending (0.6-1.2) mg/dl Est Cr Clr Drug Dosing Pending ml/min Est GFR ( Amer) Pending ml/min Est GFR (Non-Af Amer) Pending ml/min BUN/Creatinine Ratio Pending (10-20) Glucose Pending (70-99(Fasting)) mg/dl POC Glucose 115 H 135 H (70-99) mg/dl Lactate (0.4-2.0) mmol/L Calcium Pending (8.6-10.3) mg/dl Magnesium Pending Total Bilirubin (0.2-1.0) mg/dl AST (13-39) U/L ALT (7-52) U/L Alkaline Phosphatase (34-104) U/L Total Protein (6.0-8.3) gm/dl Albumin (3.4-5.0) gm/dl Globulin (2.5-4.0) gm/dl Albumin/Globulin Ratio (0.9-2) Urine Color Urine Appearance (Clear) Urine pH (4.5-7.5) Ur Specific Newcomb (1.000-1.030) Urine Protein (Negative) Urine Glucose (UA) (Negative) Urine Ketones (Negative) Urine Blood (Negative) Urine Nitrite (Negative) Urine Bilirubin (Negative) Urine Urobilinogen (Negative) Ur Leukocyte Esterase (Negative) Urine WBC (Auto) (0-5) /hpf Urine RBC (Auto) (0-4) /hpf U Hyaline Cast (Auto) (0-5) /lpf U Epithel Cells (Auto) (0-5) /lpf Urine Bacteria (Auto) (Negative) Ur Renal Epithelial Cell Nasal Screen MRSA (PCR) (Negative) 09/20/23 09/20/23 09/20/23 Range/Units 11:20 09:15 08:10 WBC (4.8-10.8) K/ul RBC (4.20-5.40) M/uL Hgb (12.0-16.0) g/dl Hct (37.0-47.0) % MCV (80.0-100.0) fL MCH (25.0-34.0) pg MCHC (32.0-36.0) g/dL RDW Std Deviation (36.4-46.3) fL RDW Coeff of Harish (11.5-14.5) % Plt Count (130-400) K/uL MPV (9.4-12.4) fL Immature Gran % (Auto) % Neut % (Auto) % Lymph % (Auto) % [place] % (Auto) % Eos % (Auto) % Baso % (Auto) % Neut # (Auto) (1.40-6.50) K/uL Lymph # (Auto) (1.20-3.40) K/uL [place] # (Auto) (0.11-0.59) K/uL Eos # (Auto) (0.00-0.50) K/uL Baso # (Auto) (0.00-0.20) K/uL Immature Gran # (Auto) (0.01-0.20) K/uL RBC Morphology Sodium (136-145) mmol/L Potassium (3.5-5.1) mmol/L Chloride (98-107) mmol/L Carbon Dioxide (21-32) mmol/L Anion Gap (3-11) BUN (6-23) mg/dl Creatinine (0.6-1.2) mg/dl Est Cr Clr Drug Dosing ml/min Est GFR ( Amer) ml/min Est GFR (Non-Af Amer) ml/min BUN/Creatinine Ratio (10-20) Glucose (70-99(Fasting)) mg/dl POC Glucose (70-99) mg/dl Lactate 5.2 H* 5.3 H* (0.4-2.0) mmol/L Calcium (8.6-10.3) mg/dl Magnesium Total Bilirubin (0.2-1.0) mg/dl AST (13-39) U/L ALT (7-52) U/L Alkaline Phosphatase (34-104) U/L Total Protein (6.0-8.3) gm/dl Albumin (3.4-5.0) gm/dl Globulin (2.5-4.0) gm/dl Albumin/Globulin Ratio (0.9-2) Urine Color Yellow Urine Appearance Clear (Clear) Urine pH 6.0 (4.5-7.5) Ur Specific Newcomb > 1.045 H (1.000-1.030) Urine Protein 1+ H (Negative) Urine Glucose (UA) Negative (Negative) Urine Ketones Negative (Negative) Urine Blood Negative (Negative) Urine Nitrite Negative (Negative) Urine Bilirubin Negative (Negative) Urine Urobilinogen Negative (Negative) Ur Leukocyte Esterase Negative (Negative) Urine WBC (Auto) 1-5 (0-5) /hpf Urine RBC (Auto) 0-4 (0-4) /hpf U Hyaline Cast (Auto) 1-5 (0-5) /lpf U Epithel Cells (Auto) 5-10 H (0-5) /lpf Urine Bacteria (Auto) Negative (Negative) Ur Renal Epithelial Cell Not Reportable Nasal Screen MRSA (PCR) (Negative) 09/20/23 09/20/23 Range/Units 08:05 07:08 WBC 11.96 H (4.8-10.8) K/ul RBC 2.58 L (4.20-5.40) M/uL Hgb 7.9 L D (12.0-16.0) g/dl Hct 25.8 L (37.0-47.0) % MCV 100.0 D (80.0-100.0) fL MCH 30.6 (25.0-34.0) pg MCHC 30.6 L (32.0-36.0) g/dL RDW Std Deviation 54.0 H (36.4-46.3) fL RDW Coeff of Harish 14.9 H (11.5-14.5) % Plt Count 227 (130-400) K/uL MPV 9.9 (9.4-12.4) fL Immature Gran % (Auto) 1.2 % Neut % (Auto) 82.3 % Lymph % (Auto) 10.3 % [place] % (Auto) 5.9 % Eos % (Auto) 0.1 % Baso % (Auto) 0.2 % Neut # (Auto) 9.86 H (1.40-6.50) K/uL Lymph # (Auto) 1.23 (1.20-3.40) K/uL [place] # (Auto) 0.70 H (0.11-0.59) K/uL Eos # (Auto) 0.01 (0.00-0.50) K/uL Baso # (Auto) 0.02 (0.00-0.20) K/uL Immature Gran # (Auto) 0.14 (0.01-0.20) K/uL RBC Morphology Unremarkable Sodium 138 (136-145) mmol/L Potassium 4.7 (3.5-5.1) mmol/L Chloride 108 H (98-107) mmol/L Carbon Dioxide 21 (21-32) mmol/L Anion Gap 9 (3-11) BUN 22 (6-23) mg/dl Creatinine 0.94 (0.6-1.2) mg/dl Est Cr Clr Drug Dosing 39.4 ml/min Est GFR ( Amer) 70.7 ml/min Est GFR (Non-Af Amer) 61.0 ml/min BUN/Creatinine Ratio 23.4 H (10-20) Glucose 117 H (70-99(Fasting)) mg/dl POC Glucose (70-99) mg/dl Lactate 7.4 H* (0.4-2.0) mmol/L Calcium 7.4 L D (8.6-10.3) mg/dl Magnesium Total Bilirubin 0.3 (0.2-1.0) mg/dl AST 19 (13-39) U/L ALT 12 (7-52) U/L Alkaline Phosphatase 46 (34-104) U/L Total Protein 4.8 L D (6.0-8.3) gm/dl Albumin 3.0 L (3.4-5.0) gm/dl Globulin 1.8 L (2.5-4.0) gm/dl Albumin/Globulin Ratio 1.7 (0.9-2) Urine Color Urine Appearance (Clear) Urine pH (4.5-7.5) Ur Specific Newcomb (1.000-1.030) Urine Protein (Negative) Urine Glucose (UA) (Negative) Urine Ketones (Negative) Urine Blood (Negative) Urine Nitrite (Negative) Urine Bilirubin (Negative) Urine Urobilinogen (Negative) Ur Leukocyte Esterase (Negative) Urine WBC (Auto) (0-5) /hpf Urine RBC (Auto) (0-4) /hpf U Hyaline Cast (Auto) (0-5) /lpf U Epithel Cells (Auto) (0-5) /lpf Urine Bacteria (Auto) (Negative) Ur Renal Epithelial Cell Nasal Screen MRSA (PCR) Negative (Negative) (2) Crohns disease Digestive disease complication type: with intestinal obstruction Gastrointestinal tract location: unspecified location Qualified Code(s): K50.912 - Crohn's disease, unspecified, with intestinal obstruction
[2023-09-21 06:53] LABS: Calcium 7.6 mg/dl (8.6-10.3); Magnesium 1.5 mg/dl (1.7-2.4); Potassium 4.8 mmol/L (3.5-5.1)
[2023-09-21 06:59] LABS: BUN Creatinine Ratio 29.5 (10-20); Creatinine Clr Calc Pharmacy 38.8 ml/min; Est GFR (African American) 69.8 ml/min; Est GFR (Non-African American) 60.3 ml/min
--- NOTE | 2023-09-21 08:03 | Critical Care Progress Note ---
Date of Service September 21, 2023 Assessment & Plan (1) SBO (small bowel obstruction): (2) HTN (hypertension): (3) Generalized anxiety disorder: (4) Crohns disease: Plan Reason Critically Ill: 72 YOF with history of Chron's disease with multiple abdominal surgeries to include ostomy with takedown. Presented to [facility] with acute onset of abdominal pain, failed conservative measures and taken to OR early this morning. To the ICU not on vasopressors and extubated. 24-hour events: Patient's been hemodynamically stable. She is experiencing some mild abdominal pain. Recommendations: Neuro -pain management per surgery. Otherwise no issues. Currently clonazepam, Celexa, mirtazapine on hold due to NG tube. Will restart once bowel function resumes. Cardiac -holding oral amiodarone and beta-justina as well as lipid-lowering agents secondary to postoperative delay in bowel function. Hemodynamically stable. Respiratory -no current issues. Out of bed to chair as tolerated. Wean oxygen as tolerated. GI -small bowel obstruction with internal hernia status postsurgical resection. Bowel management per general surgery. History of Crohn's disease, does not appear clinically active currently. RENAL/LYTES - No acute needs - Sage to gravity can likely discontinue when she is out of bed ENDO - NO acute needs at this time HEME - No acute needs ID -currently on Zosyn. Defer to primary service. No obvious signs of infection. LINES/IV ACCESS - PIV and sage Continue use of these lines DVT PROPHYLAXIS - SCDS, Chemoprophylaxis when hemostasis is ensured by primary service DISPO: Patient is hemodynamically stable to transfer out of the intensive care unit. Critical care services will sign off at this point in time. Feel free to contact us with questions or concerns Admission and Anticipated Discharge Date Admission Date: September 19, 2023 Subjective Patient seen and examined. EMR reviewed. 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 The patient is awake alert conversant and in no obvious distress. She is experiencing some increasing abdominal pain today compared to yesterday. She denies any chest pain, palpitations, or shortness of breath. She is not experiencing any significant lower extremity edema. She denies any nausea or vomiting. Review of Systems Review of Systems: All systems reviewed & are unremarkable except as noted in Subjective Physical Exam Physical Exam: PHYSICAL EXAM: General: Post operative, opens eyes to voice, ENT: PERRL, mucous membranes dry Neuro: AAO x 2, speech clear and appropriate, strength intact bilaterally 5/5, sensation intact and equal all extremities Chest: equal rise and fall of the chest, no accessory muscle use, Clear to auscultation, on room air, Cardiac: Regular rate and rhythm, telemetry reviewed- NSR, skin warm dry, cap refill <3 seconds, peripheral pulses +2 no JVD, no murmur, no edema GI: Abdomen soft, midline incision CDI, NGT in place to LIWS : Sage to gravity Skin: no rash or erythema Results & Data Results & Data Vital Signs (Past 12 Hours) Vital Signs Temp Pulse Resp BP Pulse Ox O2 Del Method 09/21/23 07:30 86 24 92 09/21/23 07:00 83 22 100 09/21/23 07:00 108/45 L 09/21/23 07:00 36.9 C 09/21/23 06:30 88 27 H 95 09/21/23 06:00 84 20 100 09/21/23 06:00 133/48 L 09/21/23 05:30 95 H 15 100 09/21/23 05:00 36.8 C 84 21 121/48 L 98 09/21/23 04:00 85 21 116/51 L 100 09/21/23 03:00 87 17 115/50 L 99 Room Air 09/21/23 02:00 36.7 C 90 18 117/59 L 100 Room Air 09/21/23 01:01 85 09/21/23 01:00 85 18 109/51 L 100 Room Air 09/21/23 00:00 36.8 C 87 13 115/54 L 100 Room Air 09/20/23 23:00 36.7 C 82 18 126/51 L 100 Room Air 09/20/23 22:06 36.8 C 112 H 19 92/54 L 91 Room Air 09/20/23 21:00 36.8 C 100 H 18 112/57 L 99 Room Air 09/20/23 20:00 Room Air 09/20/23 20:00 36.8 C 94 H 17 115/58 L 98 Room Air Critical Care Results & Data Vital Signs (Past 12 Hours) Vital Signs Temp Pulse Resp BP Pulse Ox O2 Del Method 09/21/23 07:30 86 24 92 09/21/23 07:00 83 22 100 09/21/23 07:00 108/45 L 09/21/23 07:00 36.9 C 09/21/23 06:30 88 27 H 95 09/21/23 06:00 84 20 100 09/21/23 06:00 133/48 L 09/21/23 05:30 95 H 15 100 09/21/23 05:00 36.8 C 84 21 121/48 L 98 09/21/23 04:00 85 21 116/51 L 100 09/21/23 03:00 87 17 115/50 L 99 Room Air 09/21/23 02:00 36.7 C 90 18 117/59 L 100 Room Air 09/21/23 01:01 85 09/21/23 01:00 85 18 109/51 L 100 Room Air 09/21/23 00:00 36.8 C 87 13 115/54 L 100 Room Air 09/20/23 23:00 36.7 C 82 18 126/51 L 100 Room Air 09/20/23 22:06 36.8 C 112 H 19 92/54 L 91 Room Air 09/20/23 21:00 36.8 C 100 H 18 112/57 L 99 Room Air 09/20/23 20:00 Room Air 09/20/23 20:00 36.8 C 94 H 17 115/58 L 98 Room Air Lab & Micro Results (Past 24 Hours) No Data to Display Na 136 mmol/L (136-145) 09/21/23 K 4.8 mmol/L (3.5-5.1) 09/21/23 Cl 103 mmol/L (98-107) 09/21/23 CO2 24 mmol/L (21-32) 09/21/23 Anion Gap 9 (3-11) 09/21/23 BUN 28 mg/dl (6-23) H 09/21/23 Creatinine 0.95 mg/dl (0.6-1.2) 09/21/23 Estimated GFR ( Amer) 69.8 ml/min 09/21/23 Estimated GFR (Non-Af Amer) 60.3 ml/min 09/21/23 BUN/Creatinine Ratio 29.5 (10-20) H 09/21/23 Glu 101 mg/dl (70-99(Fasting)) H 09/21/23 Ca 7.6 mg/dl (8.6-10.3) L 09/21/23 Mg 1.5 mg/dl (1.7-2.4) L 09/21/23 06:17 Calcium Level 7.6 mg/dl (8.6-10.3) L 09/21/23 06:17 I & O Totals 24 Hours 09/20/23 09/21/23 09/22/23 06:59 06:59 06:59 Intake Total 7050 / 7050 2620.833 / 2620.833 1000 / 1000 Output Total 1250 / 1250 Balance 7050 / 7050 1370.833 / 2816.460 8345 / 1000 Cumulative 09/19/23 16:15 thru 09/21/23 07:40 Intake Total 49026.833 Output Total 1250 Balance 9420.833 RT Ventilator Mngmt (Last Documented) Ventilator Ordered Settings Respiratory Rate 24 09/21/23 07:30 Ventilator - PT Measurements Respiratory Rate 24 Coding Level of Care Code 07010 SUB INP/OBS CARE 3/50MIN Diagnoses SBO (small bowel obstruction) K56.609 Primary hypertension I10 Hypertension type: primary hypertension Generalized anxiety disorder F41.1 Crohn's disease without complication, unspecified gastrointestinal tract location K50.912 Digestive disease complication type: with intestinal obstruction Gastrointestinal tract location: unspecified location (2) HTN (hypertension) Hypertension type: primary hypertension Qualified Code(s): I10 - Essential (primary) hypertension (4) Crohns disease Digestive disease complication type: with intestinal obstruction Gastrointestinal tract location: unspecified location Qualified Code(s): K50.912 - Crohn's disease, unspecified, with intestinal obstruction
[2023-09-21 08:16] LABS: Hematocrit (blood only) 16.5 % (37.0-47.0); Hemoglobin 5.2 g/dl (12.0-16.0); Mean Corpuscular Hemoglobin 30.2 pg (25.0-34.0); Mean Corpuscular Hgb Conc 31.5 g/dL (32.0-36.0); Mean Corpuscular Volume 95.9 fL (80.0-100.0); Mean Platelet Volume 10.3 fL (9.4-12.4); Platelet Count 171 K/uL (130-400); RDW Coefficient of Variation 15.2 % (11.5-14.5); RDW Standard Deviation 53.1 fL (36.4-46.3); Red Blood Count 1.72 M/uL (4.20-5.40); White Blood Count 11.67 K/ul (4.8-10.8)
[2023-09-21] MEDS ORDERED: SODIUM CHLORIDE 0.9% 250 ML IV PRN ×2 (08:23→17:07)
[2023-09-21 08:41] LABS: Basophils # (auto) 0.02 K/uL (0.00-0.20); Basophils % (auto) 0.2 %; Eosinophils # (auto) 0.01 K/uL (0.00-0.50); Eosinophils % (auto) 0.1 %; Immature Granulocytes # (auto) 0.05 K/uL (0.01-0.20); Immature Granulocytes % (auto) 0.4 %; Lymphocytes # (auto) 0.91 K/uL (1.20-3.40); Lymphocytes % (auto) 7.8 %; Monocytes # (auto) 0.85 K/uL (0.11-0.59); Monocytes % (auto) 7.3 %; Neutrophils # (auto) 9.83 K/uL (1.40-6.50); Neutrophils % (auto) 84.2 %; RBC Morphology Unremarkable
[2023-09-21] MEDS: ICU ELECTROLYTE REPLACEMENT PROTOCOL SCH (10:12)
[2023-09-21] MEDS: HYDROmorphone INJ 1 MG/ML SYRINGE IV PRN ×2 (10:18→20:00)
[2023-09-21] MEDS: MAGNESIUM SULFATE / D5W 1 GM/100 ML BAG IV SCH (10:31)
--- NOTE | 2023-09-21 13:20 | Hospitalist Progress Note ---
Date of Service September 21, 2023 Assessment & Plan (1) SBO (small bowel obstruction): Plan: SBO obstruction in the setting of Recent Surgery - NGT in place - High-grade small bowel obstruction with twisting of the mesentery and at least two transition points suggestive of a closed loop obstruction - antibiotic management with Zosyn per surgical team - Fluids per surgical team; Hypotension -Status post fluid resuscitation - continue maintenance as per above -Getting blood transfusion today - limit opioids in the setting of hypotension Anemia Postoperative Hemoglobin drop from 12 to 8 to 5 today Getting blood transfusion Surgery team considering CT scan Likely acute blood loss anemia Symptomatic PVCs - hold amiodarone /metoprolol while NPO, plan to restart as soon as possible - prn labetalol for HR>100 Essential Tremor - hold primidone as pt is NPO, restart as soon as possible GERD -PPI IV as per surgical team Anxiety - hold clonazepam prn, escitalopram, mirtazapine as pt is NPO, restart as soon as possible HLD - hold statin as pt is NPO COPD - continue home inhalers CAD - restart home medications once she is able to tolerate PO VTE Prophylaxis: SCDs, defer pharmacologic at present pending surgical plan Code: Full Diet: NPO (2) Abdominal pain: (3) COPD (chronic obstructive pulmonary disease): (4) Essential tremor: (5) CAD (coronary artery disease): Admission and Anticipated Discharge Date Admission Date: September 19, 2023 Subjective Patient is awake and alert. She is able to hold a conversation. Accompanied by her daughter at the bedside. Patient denies dizziness. Complains of abdominal pain. Review of Systems Review of Systems: All systems reviewed & are unremarkable except as noted in Subjective Physical Exam Physical Exam: General: Awake, conversant. Cachectic Heart: S1, S2/regular rate and rhythm, no murmur rubs or gallops Lungs: Clear to auscultation bilaterally. Normal effort Extremities: No clubbing/cyanosis. No edema Behavior: Appropriate, cooperative Results & Data Results & Data Vital Signs (Past 12 Hours) Vital Signs Temp Pulse Resp BP Pulse Ox O2 Del Method O2 Flow Rate 09/21/23 12:40 80 19 100 09/21/23 12:34 36.8 C 09/21/23 12:30 78 15 100 09/21/23 12:30 101/43 L 09/21/23 12:20 83 28 H 97 09/21/23 12:19 36.8 C 09/21/23 12:15 81 21 95 09/21/23 12:00 96/50 L 09/21/23 12:00 82 19 100 09/21/23 12:00 36.6 C 84 16 96/50 L 97 2 09/21/23 11:45 80 17 99 09/21/23 11:30 81 13 99 09/21/23 11:15 82 10 L 99 09/21/23 11:10 95/42 L 09/21/23 11:10 80 12 100 09/21/23 11:00 80 16 100 09/21/23 11:00 86/39 L 09/21/23 11:00 36.7 C 09/21/23 10:30 87 17 100 09/21/23 10:00 82 17 97 09/21/23 10:00 113/48 L 09/21/23 09:30 80 18 100 09/21/23 09:00 80 16 100 09/21/23 09:00 97/43 L 09/21/23 08:30 76 17 100 09/21/23 08:00 78 23 100 09/21/23 08:00 101/43 L 09/21/23 08:00 Nasal Cannula 2 09/21/23 08:00 86 09/21/23 07:30 86 24 92 09/21/23 07:00 83 22 100 09/21/23 07:00 108/45 L 09/21/23 07:00 36.9 C 09/21/23 06:30 88 27 H 95 09/21/23 06:00 84 20 100 09/21/23 06:00 133/48 L 09/21/23 05:30 95 H 15 100 09/21/23 05:00 36.8 C 84 21 121/48 L 98 09/21/23 04:00 85 21 116/51 L 100 09/21/23 03:00 87 17 115/50 L 99 Room Air 09/21/23 02:00 36.7 C 90 18 117/59 L 100 Room Air Laboratory Results Abnormal lab results 09/21/23 09/21/23 09/21/23 Range/Units 00:04 06:17 07:57 WBC 11.67 H (4.8-10.8) K/ul RBC 1.72 L (4.20-5.40) M/uL Hgb 5.2 L* (12.0-16.0) g/dl Hct 16.5 L* (37.0-47.0) % MCHC 31.5 L (32.0-36.0) g/dL RDW Std Deviation 53.1 H (36.4-46.3) fL RDW Coeff of Harish 15.2 H (11.5-14.5) % Neut # (Auto) 9.83 H (1.40-6.50) K/uL Lymph # (Auto) 0.91 L (1.20-3.40) K/uL [place] # (Auto) 0.85 H (0.11-0.59) K/uL BUN 28 H (6-23) mg/dl BUN/Creatinine Ratio 29.5 H (10-20) Glucose 101 H (70-99(Fasting)) mg/dl POC Glucose 115 H (70-99) mg/dl Calcium 7.6 L (8.6-10.3) mg/dl Magnesium 1.5 L (1.7-2.4) mg/dl Crossmatch See Detail 09/21/23 09/21/23 Range/Units 10:14 11:56 WBC (4.8-10.8) K/ul RBC (4.20-5.40) M/uL Hgb (12.0-16.0) g/dl Hct (37.0-47.0) % MCHC (32.0-36.0) g/dL RDW Std Deviation (36.4-46.3) fL RDW Coeff of Harish (11.5-14.5) % Neut # (Auto) (1.40-6.50) K/uL Lymph # (Auto) (1.20-3.40) K/uL [place] # (Auto) (0.11-0.59) K/uL BUN (6-23) mg/dl BUN/Creatinine Ratio (10-20) Glucose (70-99(Fasting)) mg/dl POC Glucose 106 H (70-99) mg/dl Calcium (8.6-10.3) mg/dl Magnesium (1.7-2.4) mg/dl Crossmatch See Detail PG Care Time/CCT Total # of Minutes Spent Total Time Spent with Patient: Total time spent is greater than 50% in coordination of care (as documented) at patient's floor/unit and/or counseling patient: Coding Level of Care Code 59401 SUB INP/OBS CARE 2/35MIN Diagnoses SBO (small bowel obstruction) K56.609 Abdominal pain R10.9 COPD (chronic obstructive pulmonary disease) J44.9 Essential tremor G25.0 CAD (coronary artery disease) I25.10
[2023-09-21] MEDS ORDERED: HYDROmorphone INJ 1 MG/ML SYRINGE IV PRN (14:35)
[2023-09-21 16:33] LABS: Hemoglobin 6.4 g/dl (12.0-16.0)
[2023-09-21] MEDS: ACETAMINOPHEN 1,000 MG/100 ML VIAL IV SCH (17:05)
[2023-09-21] MEDS: PANTOprazole 40 MG in SYRINGE 0 ML IV SCH (20:38)
[2023-09-21 22:43] LABS: Hematocrit (blood only) 26.7 % (37.0-47.0); Hemoglobin 8.9 g/dl (12.0-16.0)
[2023-09-22] MEDS: D5W AND LACTATED RINGERS 1,000 ML IV SCH (00:41)
[2023-09-22 05:36] LABS: Basophils # (auto) 0.02 K/uL (0.00-0.20); Basophils % (auto) 0.2 %; Eosinophils # (auto) 0.06 K/uL (0.00-0.50); Eosinophils % (auto) 0.6 %; Hematocrit (blood only) 25.2 % (37.0-47.0); Hemoglobin 8.3 g/dl (12.0-16.0); Immature Granulocytes # (auto) 0.05 K/uL (0.01-0.20); Immature Granulocytes % (auto) 0.5 %; Lymphocytes # (auto) 0.82 K/uL (1.20-3.40); Lymphocytes % (auto) 7.5 %; Mean Corpuscular Hemoglobin 29.5 pg (25.0-34.0); Mean Corpuscular Hgb Conc 32.9 g/dL (32.0-36.0); Mean Corpuscular Volume 89.7 fL (80.0-100.0); Mean Platelet Volume 10.7 fL (9.4-12.4); Monocytes # (auto) 0.38 K/uL (0.11-0.59); Monocytes % (auto) 3.5 %; Neutrophils # (auto) 9.57 K/uL (1.40-6.50); Neutrophils % (auto) 87.7 %; Platelet Count 141 K/uL (130-400); RDW Coefficient of Variation 15.6 % (11.5-14.5); RDW Standard Deviation 51.3 fL (36.4-46.3); Red Blood Count 2.81 M/uL (4.20-5.40)
[2023-09-22 05:52] LABS: Calcium 7.7 mg/dl (8.6-10.3); Creatinine Clr Calc Pharmacy 60.5 ml/min; Est GFR (African American) 105.7 ml/min; Est GFR (Non-African American) 91.2 ml/min; Magnesium 2.5 mg/dl (1.7-2.4); Phosphorus 2.7 mg/dl (2.5-4.9); Potassium 3.6 mmol/L (3.5-5.1)
[2023-09-22] MEDS: POTASSIUM CHLORIDE / WTR 10 MEQ/100 ML PLCT IV SCH (06:18)
[2023-09-22] MEDS: LORazepam 0.5 MG in SYRINGE 0.25 ML IV PRN (09:06)
--- NOTE | 2023-09-22 09:35 | Critical Care Progress Note ---
Date of Service September 22, 2023 Assessment & Plan (1) SBO (small bowel obstruction): (2) HTN (hypertension): (3) Generalized anxiety disorder: (4) Crohns disease: Plan Reason Critically Ill: 72 YOF with history of Chron's disease with multiple abdominal surgeries to include ostomy with takedown. Presented to EMD with acute onset of abdominal pain, failed conservative measures and taken to OR early this morning. To the ICU not on vasopressors and extubated. 24-hour events: Patient required transfusion of 2 units of packed cells yesterday. She has been hemodynamically stable. Recommendations: Neuro -pain management per surgery. Otherwise no issues. Currently clonazepam, Celexa, mirtazapine on hold due to NG tube. Will restart once bowel function resumes. Cardiac -holding oral amiodarone and beta-justina as well as lipid-lowering agents secondary to postoperative delay in bowel function. Hemodynamically stable. Respiratory -no current issues. Out of bed to chair as tolerated. Wean oxygen as tolerated. GI -small bowel obstruction with internal hernia status postsurgical resection. Bowel management per general surgery. History of Crohn's disease, does not appear clinically active currently. RENAL/LYTES - No acute needs - Sage to gravity can likely discontinue when she is out of bed ENDO - NO acute needs at this time HEME -acute blood loss anemia status posttransfusion 2 units of packed cells. Hemoglobin appears stable. Defer additional imaging to the general surgery service. ID -currently on Zosyn. Defer to primary service. No obvious signs of infection. LINES/IV ACCESS - PIV and sage Continue use of these lines DVT PROPHYLAXIS - SCDS, Chemoprophylaxis when hemostasis is ensured by primary service DISPO: Patient is hemodynamically stable to transfer out of the intensive care unit. Critical care services will sign off at this point in time. Feel free to contact us with questions or concerns Admission and Anticipated Discharge Date Admission Date: September 19, 2023 Subjective Patient seen and examined. EMR reviewed. Discussed on multidisciplinary rounds and with bedside critical care nurse. Discussed with overnight NEEL as well. The patient reports that her pain is still present although improved from yesterday. She received 2 units of packed cells last night. She is not nauseated or experiencing any chest pain or shortness of breath. She not been febrile. Her hemodynamics are stable. Review of Systems Review of Systems: All systems reviewed & are unremarkable except as noted in Subjective Physical Exam Physical Exam: PHYSICAL EXAM: General: Post operative, opens eyes to voice, ENT: PERRL, mucous membranes dry Neuro: AAO x 2, speech clear and appropriate, strength intact bilaterally 5/5, sensation intact and equal all extremities Chest: equal rise and fall of the chest, no accessory muscle use, Clear to auscultation, on room air, Cardiac: Regular rate and rhythm, telemetry reviewed- NSR, skin warm dry, cap refill <3 seconds, peripheral pulses +2 no JVD, no murmur, no edema GI: Abdomen soft, midline incision CDI, NGT in place to LIWS : Sage to gravity Skin: no rash or erythema Results & Data Results & Data Vital Signs (Past 12 Hours) Vital Signs Temp Pulse Pulse Resp BP BP Pulse Ox 09/22/23 07:41 37.2 C 67 17 122/50 L 92 09/22/23 07:03 71 09/22/23 07:00 124/45 L 09/22/23 07:00 73 18 90 09/22/23 06:00 111/49 L 09/22/23 06:00 67 14 89 L 09/22/23 05:30 64 14 88 L 09/22/23 05:00 109/48 L 09/22/23 05:00 66 13 86 L 09/22/23 04:30 66 16 87 L 09/22/23 04:06 36.9 C 09/22/23 04:00 106/47 L 09/22/23 04:00 67 18 91 09/22/23 03:30 71 17 86 L 09/22/23 03:00 123/50 L 09/22/23 03:00 68 16 92 09/22/23 02:30 65 20 90 09/22/23 02:02 67 09/22/23 02:00 65 17 93 09/22/23 02:00 106/44 L 09/22/23 01:30 70 12 100 09/22/23 01:00 118/45 L 09/22/23 01:00 65 16 100 09/22/23 00:30 65 14 100 09/22/23 00:00 112/49 L 09/22/23 00:00 68 15 100 09/21/23 23:30 73 24 100 09/21/23 23:16 37.1 C 03/04/24 23:00 122/49 L 09/21/23 23:00 67 16 100 09/21/23 22:30 66 17 100 09/21/23 22:00 118/59 L 09/21/23 22:00 69 17 97 O2 Del Method 09/22/23 07:41 Room Air 09/22/23 07:03 09/22/23 07:00 09/22/23 07:00 Room Air 09/22/23 06:00 09/22/23 06:00 09/22/23 05:30 09/22/23 05:00 09/22/23 05:00 09/22/23 04:30 09/22/23 04:06 09/22/23 04:00 09/22/23 04:00 09/22/23 03:30 09/22/23 03:00 09/22/23 03:00 09/22/23 02:30 09/22/23 02:02 09/22/23 02:00 09/22/23 02:00 09/22/23 01:30 09/22/23 01:00 09/22/23 01:00 09/22/23 00:30 09/22/23 00:00 09/22/23 00:00 09/21/23 23:30 09/21/23 23:16 09/21/23 23:00 09/21/23 23:00 09/21/23 22:30 09/21/23 22:00 09/21/23 22:00 Critical Care Results & Data Vital Signs (Past 12 Hours) Vital Signs Temp Pulse Pulse Resp BP BP Pulse Ox 09/22/23 07:41 37.2 C 67 17 122/50 L 92 09/22/23 07:03 71 09/22/23 07:00 124/45 L 09/22/23 07:00 73 18 90 09/22/23 06:00 111/49 L 09/22/23 06:00 67 14 89 L 09/22/23 05:30 64 14 88 L 09/22/23 05:00 109/48 L 09/22/23 05:00 66 13 86 L 09/22/23 04:30 66 16 87 L 09/22/23 04:06 36.9 C 09/22/23 04:00 106/47 L 09/22/23 04:00 67 18 91 09/22/23 03:30 71 17 86 L 09/22/23 03:00 123/50 L 09/22/23 03:00 68 16 92 09/22/23 02:30 65 20 90 09/22/23 02:02 67 09/22/23 02:00 65 17 93 09/22/23 02:00 106/44 L 09/22/23 01:30 70 12 100 09/22/23 01:00 118/45 L 09/22/23 01:00 65 16 100 09/22/23 00:30 65 14 100 09/22/23 00:00 112/49 L 09/22/23 00:00 68 15 100 09/21/23 23:30 73 24 100 09/21/23 23:16 37.1 C 09/21/23 23:00 122/49 L 09/21/23 23:00 67 16 100 09/21/23 22:30 66 17 100 09/21/23 22:00 118/59 L 09/21/23 22:00 69 17 97 O2 Del Method 09/22/23 07:41 Room Air 09/22/23 07:03 09/22/23 07:00 09/22/23 07:00 Room Air 09/22/23 06:00 09/22/23 06:00 09/22/23 05:30 09/22/23 05:00 09/22/23 05:00 09/22/23 04:30 09/22/23 04:06 09/22/23 04:00 09/22/23 04:00 09/22/23 03:30 09/22/23 03:00 09/22/23 03:00 09/22/23 02:30 09/22/23 02:02 09/22/23 02:00 09/22/23 02:00 09/22/23 01:30 09/22/23 01:00 09/22/23 01:00 09/22/23 00:30 09/22/23 00:00 09/22/23 00:00 09/21/23 23:30 09/21/23 23:16 09/21/23 23:00 09/21/23 23:00 09/21/23 22:30 09/21/23 22:00 09/21/23 22:00 Lab & Micro Results (Past 24 Hours) RBC 2.81 M/uL (4.20-5.40) L 09/22/23 WBC 10.90 K/ul (4.8-10.8) H 09/22/23 Hgb 8.3 g/dl (12.0-16.0) L 09/22/23 Hct 25.2 % (37.0-47.0) L 09/22/23 MCV 89.7 fL (80.0-100.0) 09/22/23 MCH 29.5 pg (25.0-34.0) 09/22/23 MCHC 32.9 g/dL (32.0-36.0) 09/22/23 RDW Standard Deviation 51.3 fL (36.4-46.3) H 09/22/23 RDW Coefficient of Variation 15.6 % (11.5-14.5) H 09/22/23 Plt Count 141 K/uL (130-400) 09/22/23 MPV 10.7 fL (9.4-12.4) 09/22/23 Neutrophils (%) (Auto) 87.7 % 09/22/23 Lymphocytes (%) (Auto) 7.5 % 09/22/23 Monocytes # (Auto) 0.38 K/uL (0.11-0.59) 09/22/23 Eosinophils # (Auto) 0.06 K/uL (0.00-0.50) 09/22/23 Immature Granulocyte % (Auto) 0.5 % 09/22/23 Neutrophils # (Auto) 9.57 K/uL (1.40-6.50) H 09/22/23 Lymphocytes # (Auto) 0.82 K/uL (1.20-3.40) L 09/22/23 Monocytes # (Auto) 0.38 K/uL (0.11-0.59) 09/22/23 Eosinophils # (Auto) 0.06 K/uL (0.00-0.50) 09/22/23 Basophils # (Auto) 0.02 K/uL (0.00-0.20) 09/22/23 Immature Granulocyte # (Auto) 0.05 K/uL (0.01-0.20) 4 Na 134 mmol/L (136-145) L 09/22/23 K 3.6 mmol/L (3.5-5.1) 09/22/23 Cl 100 mmol/L (98-107) 09/22/23 CO2 29 mmol/L (21-32) 09/22/23 Anion Gap 5 (3-11) 09/22/23 BUN 14 mg/dl (6-23) 09/22/23 Creatinine 0.61 mg/dl (0.6-1.2) 09/22/23 Estimated GFR ( Amer) 105.7 ml/min 09/22/23 Estimated GFR (Non-Af Amer) 91.2 ml/min 09/22/23 BUN/Creatinine Ratio 23.0 (10-20) H 09/22/23 Glu 98 mg/dl (70-99(Fasting)) 09/22/23 Ca 7.7 mg/dl (8.6-10.3) L 09/22/23 Phosphorus Level 2.7 mg/dl (2.5-4.9) 09/22/23 Mg 2.5 mg/dl (1.7-2.4) H 09/22/23 04:25 Calcium Level 7.7 mg/dl (8.6-10.3) L 09/22/23 04:25 I & O Totals 24 Hours 09/21/23 09/22/23 09/23/23 06:59 06:59 06:59 Intake Total 2620.833 / 2620.833 3520.0 / 3520.0 300 / 300 Output Total 1250 / 1250 2870 / 2870 150 / 150 Balance 1370.833 / 1370.833 650.0 / 650.0 150 / 150 Cumulative 09/19/23 16:15 thru 09/22/23 08:56 Intake Total 15356.833 Output Total 4270 Balance 9220.833 RT Ventilator Mngmt (Last Documented) Ventilator Ordered Settings Respiratory Rate 17 09/22/23 07:41 Ventilator - PT Measurements Respiratory Rate 17 Coding Level of Care Code 05626 SUB INP/OBS CARE 3/50MIN Diagnoses SBO (small bowel obstruction) K56.609 Primary hypertension I10 Hypertension type: primary hypertension Generalized anxiety disorder F41.1 Crohn's disease without complication, unspecified gastrointestinal tract location K50.912 Digestive disease complication type: with intestinal obstruction Gastrointestinal tract location: unspecified location (2) HTN (hypertension) Hypertension type: primary hypertension Qualified Code(s): I10 - Essential (primary) hypertension (4) Crohns disease Digestive disease complication type: with intestinal obstruction Gastrointestinal tract location: unspecified location Qualified Code(s): K50.912 - Crohn's disease, unspecified, with intestinal obstruction
--- NOTE | 2023-09-22 10:13 | Surgery Progress Note ---
Date of Service September 22, 2023 Assessment & Plan (1) SBO (small bowel obstruction): (2) Crohns disease: (3) Acute blood loss anemia: Plan: likely due to postoperative bleeding and hemodilution hgb up to 8.3 after 2 units of PRBCs (previously 5.2) hemodynamically stable Plan POD # 3 s/p ex lap, small bowel resection avss hgb 8.3 postop pain better controlled today NGT with 700 cc output overnight no return of bowel function yet Plan: Continue pain management as needed continue IV fluids Continue IV zofran prn nausea continue sage for today OOB to chair PT/OT Can likely discontinue IV antibiotics tomorrow continue medical management appreciate ICU management, can downgrade to med surg with telemetry Discussed with Dr. Velasquez who agrees with above. Admission and Anticipated Discharge Date Admission Date: September 19, 2023 Subjective feeling better today pain better controlled with the scheduled IV tylenol and Dilaudid q3 hours. no n,v no flatus yet no chest pain or shortness of breath plan to get out of bed to chair today once daughter arrives Physical Exam Constitutional: WD/WN, vitals as above + frail appearing, cooperative and comfortable; no acute distress and not ill appearing Respiratory: normal respiratory effort; no respiratory distress Gastrointestinal (Abdomen): Inspection/Auscultation: + abdomen distended, + abdominal surgical incision (midline, c/d/i miranda intact) and + hypoactive bowel sounds; + abnormal bowel sounds Percussion/Palpation: + abdomen tender (generalized but improved) and abdomen soft; no guarding and abdomen not rigid Skin: no rashes, warm and dry Psychiatric: Orientation: alert and oriented x 3 Results & Data Vital Signs (Past 12 Hours) Vital Signs Temp Pulse Pulse Resp BP BP Pulse Ox 09/22/23 09:00 66 15 91 09/22/23 09:00 110/48 L 09/22/23 08:00 76 17 92 09/22/23 08:00 136/53 L 09/22/23 07:41 37.2 C 67 17 122/50 L 92 09/22/23 07:03 71 09/22/23 07:00 124/45 L 09/22/23 07:00 73 18 90 09/22/23 06:00 111/49 L 09/22/23 06:00 67 14 89 L 09/22/23 05:30 64 14 88 L 09/22/23 05:00 109/48 L 09/22/23 05:00 66 13 86 L 09/22/23 04:30 66 16 87 L 09/22/23 04:06 36.9 C 09/22/23 04:00 106/47 L 09/22/23 04:00 67 18 91 09/22/23 03:30 71 17 86 L 09/22/23 03:00 123/50 L 09/22/23 03:00 68 16 92 09/22/23 02:30 65 20 90 09/22/23 02:02 67 09/22/23 02:00 65 17 93 09/22/23 02:00 106/44 L 09/22/23 01:30 70 12 100 09/22/23 01:00 118/45 L 09/22/23 01:00 65 16 100 09/22/23 00:30 65 14 100 09/22/23 00:00 112/49 L 09/22/23 00:00 68 15 100 09/21/23 23:30 73 24 100 09/21/23 23:16 37.1 C 09/21/23 23:00 122/49 L 09/21/23 23:00 67 16 100 09/21/23 22:30 66 17 100 O2 Del Method 09/22/23 09:00 09/22/23 09:00 09/22/23 08:00 09/22/23 08:00 09/22/23 07:41 Room Air 09/22/23 07:03 09/22/23 07:00 09/22/23 07:00 Room Air 09/22/23 06:00 09/22/23 06:00 09/22/23 05:30 09/22/23 05:00 09/22/23 05:00 09/22/23 04:30 09/22/23 04:06 09/22/23 04:00 09/22/23 04:00 09/22/23 03:30 09/22/23 03:00 09/22/23 03:00 09/22/23 02:30 09/22/23 02:02 09/22/23 02:00 09/22/23 02:00 09/22/23 01:30 09/22/23 01:00 09/22/23 01:00 09/22/23 00:30 09/22/23 00:00 09/22/23 00:00 09/21/23 23:30 09/21/23 23:16 09/21/23 23:00 09/21/23 23:00 09/21/23 22:30 Laboratory Results 09/22/23 09/22/23 09/21/23 Range/Units 04:25 00:32 22:22 WBC 10.90 H (4.8-10.8) K/ul RBC 2.81 L (4.20-5.40) M/uL Hgb 8.3 L 8.9 L (12.0-16.0) g/dl Hct 25.2 L 26.7 L (37.0-47.0) % MCV 89.7 D (80.0-100.0) fL MCH 29.5 (25.0-34.0) pg MCHC 32.9 (32.0-36.0) g/dL RDW Std Deviation 51.3 H (36.4-46.3) fL RDW Coeff of Harish 15.6 H (11.5-14.5) % Plt Count 141 (130-400) K/uL MPV 10.7 (9.4-12.4) fL Immature Gran % (Auto) 0.5 % Neut % (Auto) 87.7 % Lymph % (Auto) 7.5 % [place] % (Auto) 3.5 % Eos % (Auto) 0.6 % Baso % (Auto) 0.2 % Neut # (Auto) 9.57 H (1.40-6.50) K/uL Lymph # (Auto) 0.82 L (1.20-3.40) K/uL [place] # (Auto) 0.38 (0.11-0.59) K/uL Eos # (Auto) 0.06 (0.00-0.50) K/uL Baso # (Auto) 0.02 (0.00-0.20) K/uL Immature Gran # (Auto) 0.05 (0.01-0.20) K/uL Sodium 134 L (136-145) mmol/L Potassium 3.6 D (3.5-5.1) mmol/L Chloride 100 (98-107) mmol/L Carbon Dioxide 29 (21-32) mmol/L Anion Gap 5 (3-11) BUN 14 (6-23) mg/dl Creatinine 0.61 D (0.6-1.2) mg/dl Est Cr Clr Drug Dosing 60.5 ml/min Est GFR ( Amer) 105.7 ml/min Est GFR (Non-Af Amer) 91.2 ml/min BUN/Creatinine Ratio 23.0 H (10-20) Glucose 98 (70-99(Fasting)) mg/dl POC Glucose 79 (70-99) mg/dl Calcium 7.7 L (8.6-10.3) mg/dl Phosphorus 2.7 (2.5-4.9) mg/dl Magnesium 2.5 H (1.7-2.4) mg/dl Blood Type Blood Type Recheck Antibody Screen Crossmatch 09/21/23 09/21/23 09/21/23 Range/Units 19:03 16:03 11:56 WBC (4.8-10.8) K/ul RBC (4.20-5.40) M/uL Hgb 6.4 L* (12.0-16.0) g/dl Hct 20.0 L* (37.0-47.0) % MCV (80.0-100.0) fL MCH (25.0-34.0) pg MCHC (32.0-36.0) g/dL RDW Std Deviation (36.4-46.3) fL RDW Coeff of Harish (11.5-14.5) % Plt Count (130-400) K/uL MPV (9.4-12.4) fL Immature Gran % (Auto) % Neut % (Auto) % Lymph % (Auto) % [place] % (Auto) % Eos % (Auto) % Baso % (Auto) % Neut # (Auto) (1.40-6.50) K/uL Lymph # (Auto) (1.20-3.40) K/uL [place] # (Auto) (0.11-0.59) K/uL Eos # (Auto) (0.00-0.50) K/uL Baso # (Auto) (0.00-0.20) K/uL Immature Gran # (Auto) (0.01-0.20) K/uL Sodium (136-145) mmol/L Potassium (3.5-5.1) mmol/L Chloride (98-107) mmol/L Carbon Dioxide (21-32) mmol/L Anion Gap (3-11) BUN (6-23) mg/dl Creatinine (0.6-1.2) mg/dl Est Cr Clr Drug Dosing ml/min Est GFR ( Amer) ml/min Est GFR (Non-Af Amer) ml/min BUN/Creatinine Ratio (10-20) Glucose (70-99(Fasting)) mg/dl POC Glucose 85 106 H (70-99) mg/dl Calcium (8.6-10.3) mg/dl Phosphorus (2.5-4.9) mg/dl Magnesium (1.7-2.4) mg/dl Blood Type Blood Type Recheck Antibody Screen Crossmatch 09/21/23 09/20/23 Range/Units 10:14 07:08 WBC (4.8-10.8) K/ul RBC (4.20-5.40) M/uL Hgb (12.0-16.0) g/dl Hct (37.0-47.0) % MCV (80.0-100.0) fL MCH (25.0-34.0) pg MCHC (32.0-36.0) g/dL RDW Std Deviation (36.4-46.3) fL RDW Coeff of Harish (11.5-14.5) % Plt Count (130-400) K/uL MPV (9.4-12.4) fL Immature Gran % (Auto) % Neut % (Auto) % Lymph % (Auto) % [place] % (Auto) % Eos % (Auto) % Baso % (Auto) % Neut # (Auto) (1.40-6.50) K/uL Lymph # (Auto) (1.20-3.40) K/uL [place] # (Auto) (0.11-0.59) K/uL Eos # (Auto) (0.00-0.50) K/uL Baso # (Auto) (0.00-0.20) K/uL Immature Gran # (Auto) (0.01-0.20) K/uL Sodium (136-145) mmol/L Potassium (3.5-5.1) mmol/L Chloride (98-107) mmol/L Carbon Dioxide (21-32) mmol/L Anion Gap (3-11) BUN (6-23) mg/dl Creatinine (0.6-1.2) mg/dl Est Cr Clr Drug Dosing ml/min Est GFR ( Amer) ml/min Est GFR (Non-Af Amer) ml/min BUN/Creatinine Ratio (10-20) Glucose (70-99(Fasting)) mg/dl POC Glucose (70-99) mg/dl Calcium (8.6-10.3) mg/dl Phosphorus (2.5-4.9) mg/dl Magnesium (1.7-2.4) mg/dl Blood Type O Positive Blood Type Recheck O Positive Antibody Screen NEGATIVE Crossmatch See Detail (2) Crohns disease Digestive disease complication type: with intestinal obstruction G astrointestinal tract location: unspecified location Qualified Code(s): K50.912 - Crohn's disease, unspecified, with intestinal obstruction
--- NOTE | 2023-09-22 11:57 | Hospitalist Progress Note ---
Date of Service September 22, 2023 Assessment & Plan (1) SBO (small bowel obstruction): Plan: SBO obstruction in the setting of Recent Surgery - NGT in place - High-grade small bowel obstruction with twisting of the mesentery and at least two transition points suggestive of a closed loop obstruction Status post exploratory laparotomy, bowel resection Surgery team managing - antibiotic management with Zosyn per surgical team - Fluids per surgical team; Hypotension -Status post fluid resuscitation Improved - continue maintenance as per above -Improved with blood transfusion - limit opioids in the setting of hypotension Anemia Postoperative Hemoglobin drop from 12 to 8 to 5. Hemoglobin improved after blood transfusion. Today 8 Blood transfusion on 09/20 Likely acute blood loss anemia Symptomatic PVCs - hold amiodarone /metoprolol while NPO, plan to restart as soon as possible - prn labetalol for HR>100 Essential Tremor - hold primidone as pt is NPO, restart as soon as possible GERD -PPI IV as per surgical team Anxiety - hold clonazepam prn, escitalopram, mirtazapine as pt is NPO, restart as soon as possible HLD - hold statin as pt is NPO COPD - continue home inhalers CAD - restart home medications once she is able to tolerate PO VTE Prophylaxis: SCDs, defer pharmacologic at present pending surgical plan Code: Full Diet: NPO (2) Abdominal pain: (3) COPD (chronic obstructive pulmonary disease): (4) Essential tremor: (5) CAD (coronary artery disease): Admission and Anticipated Discharge Date Admission Date: September 19, 2023 Subjective Patient feels better overall today. Belly pain is better controlled. Review of Systems Review of Systems: All systems reviewed & are unremarkable except as noted in Subjective Physical Exam Physical Exam: General: Awake, conversant. Cachectic. NG tube in place. Heart: S1, S2/regular rate and rhythm, no murmur rubs or gallops Lungs: Clear to auscultation bilaterally. Normal effort Extremities: No clubbing/cyanosis. No edema Behavior: Appropriate, cooperative Results & Data Results & Data Vital Signs (Past 12 Hours) Vital Signs Temp Pulse Pulse Resp BP BP Pulse Ox 09/22/23 09:00 66 15 91 09/22/23 09:00 110/48 L 09/22/23 08:00 76 17 92 09/22/23 08:00 136/53 L 09/22/23 07:41 37.2 C 67 17 122/50 L 92 09/22/23 07:03 71 09/22/23 07:00 124/45 L 09/22/23 07:00 73 18 90 09/22/23 06:00 111/49 L 09/22/23 06:00 67 14 89 L 09/22/23 05:30 64 14 88 L 09/22/23 05:00 109/48 L 09/22/23 05:00 66 13 86 L 09/22/23 04:30 66 16 87 L 09/22/23 04:06 36.9 C 09/22/23 04:00 106/47 L 09/22/23 04:00 67 18 91 09/22/23 03:30 71 17 86 L 09/22/23 03:00 123/50 L 09/22/23 03:00 68 16 92 09/22/23 02:30 65 20 90 09/22/23 02:02 67 09/22/23 02:00 65 17 93 09/22/23 02:00 106/44 L 09/22/23 01:30 70 12 100 09/22/23 01:00 118/45 L 09/22/23 01:00 65 16 100 09/22/23 00:30 65 14 100 09/22/23 00:00 112/49 L 09/22/23 00:00 68 15 100 O2 Del Method 09/22/23 09:00 09/22/23 09:00 09/22/23 08:00 09/22/23 08:00 09/22/23 07:41 Room Air 09/22/23 07:03 09/22/23 07:00 09/22/23 07:00 Room Air 09/22/23 06:00 09/22/23 06:00 09/22/23 05:30 09/22/23 05:00 09/22/23 05:00 09/22/23 04:30 09/22/23 04:06 09/22/23 04:00 09/22/23 04:00 09/22/23 03:30 09/22/23 03:00 09/22/23 03:00 09/22/23 02:30 09/22/23 02:02 09/22/23 02:00 09/22/23 02:00 09/22/23 01:30 09/22/23 01:00 09/22/23 01:00 09/22/23 00:30 09/22/23 00:00 09/22/23 00:00 Laboratory Results Abnormal lab results 09/21/23 09/21/23 09/21/23 Range/Units 10:14 11:56 16:03 WBC (4.8-10.8) K/ul RBC (4.20-5.40) M/uL Hgb 6.4 L* (12.0-16.0) g/dl Hct 20.0 L* (37.0-47.0) % RDW Std Deviation (36.4-46.3) fL RDW Coeff of Harish (11.5-14.5) % Neut # (Auto) (1.40-6.50) K/uL Lymph # (Auto) (1.20-3.40) K/uL Sodium (136-145) mmol/L BUN/Creatinine Ratio (10-20) POC Glucose 106 H (70-99) mg/dl Calcium (8.6-10.3) mg/dl Magnesium (1.7-2.4) mg/dl Crossmatch See Detail 09/21/23 09/22/23 Range/Units 22:22 04:25 WBC 10.90 H (4.8-10.8) K/ul RBC 2.81 L (4.20-5.40) M/uL Hgb 8.9 L 8.3 L (12.0-16.0) g/dl Hct 26.7 L 25.2 L (37.0-47.0) % RDW Std Deviation 51.3 H (36.4-46.3) fL RDW Coeff of Harish 15.6 H (11.5-14.5) % Neut # (Auto) 9.57 H (1.40-6.50) K/uL Lymph # (Auto) 0.82 L (1.20-3.40) K/uL Sodium 134 L (136-145) mmol/L BUN/Creatinine Ratio 23.0 H (10-20) POC Glucose (70-99) mg/dl Calcium 7.7 L (8.6-10.3) mg/dl Magnesium 2.5 H (1.7-2.4) mg/dl Crossmatch PG Care Time/CCT Total # of Minutes Spent Total Time Spent with Patient: Total time spent is greater than 50% in coordination of care (as documented) at patient's floor/unit and/or counseling patient: Coding Level of Care Code 66899 SUB INP/OBS CARE 2/35MIN Diagnoses SBO (small bowel obstruction) K56.609 Abdominal pain R10.9 COPD (chronic obstructive pulmonary disease) J44.9 Essential tremor G25.0 CAD (coronary artery disease) I25.10
[2023-09-23 06:32] LABS: Basophils # (auto) 0.02 K/uL (0.00-0.20); Basophils % (auto) 0.2 %; Hematocrit (blood only) 24.3 % (37.0-47.0); Immature Granulocytes # (auto) 0.05 K/uL (0.01-0.20); Immature Granulocytes % (auto) 0.5 %; Lymphocytes # (auto) 0.78 K/uL (1.20-3.40); Mean Corpuscular Hemoglobin 29.5 pg (25.0-34.0); Mean Corpuscular Hgb Conc 32.9 g/dL (32.0-36.0); Mean Corpuscular Volume 89.7 fL (80.0-100.0); Mean Platelet Volume 10.3 fL (9.4-12.4); Monocytes # (auto) 0.53 K/uL (0.11-0.59); Monocytes % (auto) 5.5 %; Neutrophils # (auto) 8.21 K/uL (1.40-6.50); Neutrophils % (auto) 84.8 %; Platelet Count 166 K/uL (130-400); RDW Coefficient of Variation 15.4 % (11.5-14.5); RDW Standard Deviation 50.4 fL (36.4-46.3); Red Blood Count 2.71 M/uL (4.20-5.40); White Blood Count 9.69 K/ul (4.8-10.8)
[2023-09-23 06:40] LABS: BUN Creatinine Ratio 14.8 (10-20); Calcium 7.7 mg/dl (8.6-10.3); Est GFR (Non-African American) 94.9 ml/min; Magnesium 2.1 mg/dl (1.7-2.4); Potassium 3.4 mmol/L (3.5-5.1)
[2023-09-23] MEDS ORDERED: D5NSS + 20MEQ KCL 20 MEQ/1,000 ML BAG IV SCH (08:15)
--- NOTE | 2023-09-23 09:41 | Surgery Progress Note ---
Date of Service September 23, 2023 Assessment & Plan (1) SBO (small bowel obstruction): (2) Crohns disease: (3) Acute blood loss anemia: Plan: likely due to postoperative bleeding and hemodilution hgb stable at 8.0 , 2 units of PRBCs 09/21/2023 (previously 5.2) hemodynamically stable Plan POD # 4 s/p ex lap, small bowel resection avss hgb 8.0 postop pain better controlled today NGT with 300 cc output overnight + return of bowel function Plan: Continue pain management as needed continue IV fluids Continue IV zofran prn nausea Discontinue sage will clamp NGT , likely can remove later today if tolerates OOB to chair PT/OT discontinue IV antibiotics continue medical management Dr. Velasquez has seen and examined patient agrees with above. Admission and Anticipated Discharge Date Admission Date: September 19, 2023 Subjective feeling better today started passing flatus last night small bowel movement no n,v no chest pain or shortness of breath pain currently 3/10, better controlled Physical Exam Constitutional: WD/WN, vitals as above + frail appearing, cooperative and comfortable; no acute distress and not ill appearing Respiratory: normal respiratory effort; no respiratory distress and no labored breathing Gastrointestinal (Abdomen): Inspection/Auscultation: abdomen normal to inspection and + abdominal surgical incision (clean/dry/intact with miranda); abdomen not distended and + abnormal bowel sounds Percussion/Palpation: + abdomen tender (midline incision appropriate postop) and abdomen soft; no guarding, abdomen not rigid and abdomen not firm NGT with green/bilious output Skin: no rashes, warm and dry Psychiatric: Orientation: alert and oriented x 3 Results & Data Vital Signs (Past 12 Hours) Vital Signs Temp Pulse Pulse Resp BP Pulse Ox O2 Del Method 09/23/23 08:49 Room Air 09/23/23 07:34 37.3 C 65 18 128/63 95 Room Air 09/23/23 07:00 65 09/23/23 04:00 36.9 C 70 12 106/56 L 92 Room Air 09/23/23 00:00 70 09/22/23 23:00 36.9 C 70 14 136/62 94 Nasal Cannula Laboratory Results 09/23/23 09/23/23 09/23/23 Range/Units 12:22 07:45 05:42 WBC 9.69 (4.8-10.8) K/ul RBC 2.71 L (4.20-5.40) M/uL Hgb 8.0 L (12.0-16.0) g/dl Hct 24.3 L (37.0-47.0) % MCV 89.7 (80.0-100.0) fL MCH 29.5 (25.0-34.0) pg MCHC 32.9 (32.0-36.0) g/dL RDW Std Deviation 50.4 H (36.4-46.3) fL RDW Coeff of Harish 15.4 H (11.5-14.5) % Plt Count 166 (130-400) K/uL MPV 10.3 (9.4-12.4) fL Immature Gran % (Auto) 0.5 % Neut % (Auto) 84.8 % Lymph % (Auto) 8.0 % [place] % (Auto) 5.5 % Eos % (Auto) 1.0 % Baso % (Auto) 0.2 % Neut # (Auto) 8.21 H (1.40-6.50) K/uL Lymph # (Auto) 0.78 L (1.20-3.40) K/uL [place] # (Auto) 0.53 (0.11-0.59) K/uL Eos # (Auto) 0.10 (0.00-0.50) K/uL Baso # (Auto) 0.02 (0.00-0.20) K/uL Immature Gran # (Auto) 0.05 (0.01-0.20) K/uL Sodium 133 L (136-145) mmol/L Potassium 3.4 L (3.5-5.1) mmol/L Chloride 99 (98-107) mmol/L Carbon Dioxide 29 (21-32) mmol/L Anion Gap 5 (3-11) BUN 8 (6-23) mg/dl Creatinine 0.54 L (0.6-1.2) mg/dl Est Cr Clr Drug Dosing 73.0 ml/min Est GFR ( Amer) 110.0 ml/min Est GFR (Non-Af Amer) 94.9 ml/min BUN/Creatinine Ratio 14.8 (10-20) Glucose 90 (70-99(Fasting)) mg/dl POC Glucose 95 97 (70-99) mg/dl Calcium 7.7 L (8.6-10.3) mg/dl Phosphorus 3.0 (2.5-4.9) mg/dl Magnesium 2.1 (1.7-2.4) mg/dl (2) Crohns disease Digestive disease complication type: with intestinal obstruction Gastrointestinal tract location: unspecified location Qualified Code(s): K50.912 - Crohn's disease, unspecified, with intestinal obstruction
[2023-09-23] MEDS: D5W AND NSS 1,000 ML IV SCH (09:48)
[2023-09-23] MEDS ORDERED: clonazePAM 0.25 MG TAB PO PRN (15:29)
--- NOTE | 2023-09-23 15:36 | Hospitalist Progress Note ---
Date of Service September 23, 2023 Assessment & Plan (1) SBO (small bowel obstruction): Plan: SBO obstruction in the setting of Recent Surgery - NGT in place. Surgery planning to clamp and then remove NG - High-grade small bowel obstruction with twisting of the mesentery and at least two transition points suggestive of a closed loop obstruction Status post exploratory laparotomy, bowel resection Surgery team managing -IV Zosyn discontinued per surgery recommendation - Fluids per surgical team; Hypotension -Status post fluid resuscitation Improved - continue maintenance as per above -Improved with blood transfusion - limit opioids in the setting of hypotension Anemia Postoperative Hemoglobin drop from 12 to 8 to 5. Hemoglobin improved after blood transfusion. Blood transfusion on 09/20 Likely acute blood loss anemia Symptomatic PVCs - hold amiodarone /metoprolol while NPO, plan to restart as soon as possible - prn labetalol for HR>100 Essential Tremor - hold primidone as pt is NPO, restart as soon as possible GERD -PPI IV as per surgical team Anxiety -Patient is having some episodes of anxiety. Will resume clonazepam, escitalopram, mirtazapine if tolerates NG removal HLD - hold statin as pt is NPO COPD - continue home inhalers CAD - restart home medications once she is able to tolerate PO VTE Prophylaxis: SCDs, until surgery clears Code: Full Diet: NPO (2) Abdominal pain: (3) COPD (chronic obstructive pulmonary disease): (4) Essential tremor: (5) CAD (coronary artery disease): Admission and Anticipated Discharge Date Admission Date: September 19, 2023 Subjective Patient feels well today. Denies chest pain or shortness of breath. Review of Systems Review of Systems: All systems reviewed & are unremarkable except as noted in Subjective Physical Exam Physical Exam: General: Awake, conversant. Cachectic. NG tube in place. Heart: S1, S2/regular rate and rhythm, no murmur rubs or gallops Lungs: Clear to auscultation bilaterally. Normal effort Extremities: No clubbing/cyanosis. No edema Behavior: Appropriate, cooperative Results & Data Results & Data Vital Signs (Past 12 Hours) Vital Signs Temp Pulse Pulse Pulse Resp BP Pulse Ox 09/23/23 15:30 37.0 C 67 16 135/63 90 09/23/23 15:25 67 09/23/23 08:49 03/06/24 07:34 37.3 C 65 18 128/63 95 09/23/23 07:00 65 09/23/23 04:00 36.9 C 70 12 106/56 L 92 O2 Del Method 09/23/23 15:30 Room Air 09/23/23 15:25 09/23/23 08:49 Room Air 09/23/23 07:34 Room Air 09/23/23 07:00 09/23/23 04:00 Room Air Laboratory Results Abnormal lab results 09/23/23 Range/Units 05:42 RBC 2.71 L (4.20-5.40) M/uL Hgb 8.0 L (12.0-16.0) g/dl Hct 24.3 L (37.0-47.0) % RDW Std Deviation 50.4 H (36.4-46.3) fL RDW Coeff of Harish 15.4 H (11.5-14.5) % Neut # (Auto) 8.21 H (1.40-6.50) K/uL Lymph # (Auto) 0.78 L (1.20-3.40) K/uL Sodium 133 L (136-145) mmol/L Potassium 3.4 L (3.5-5.1) mmol/L Creatinine 0.54 L (0.6-1.2) mg/dl Calcium 7.7 L (8.6-10.3) mg/dl PG Care Time/CCT Total # of Minutes Spent Total Time Spent with Patient: Total time spent is greater than 50% in coordination of care (as documented) at patient's floor/unit and/or counseling patient: Coding Level of Care Code 55249 SUB INP/OBS CARE 2/35MIN Diagnoses SBO (small bowel obstruction) K56.609 Abdominal pain R10.9 COPD (chronic obstructive pulmonary disease) J44.9 Essential tremor G25.0 CAD (coronary artery disease) I25.10
[2023-09-23] MEDS: ESCITALOPRAM OXALATE 20 MG TAB PO SCH (17:00)
[2023-09-23] MEDS: MIRTAZAPINE TAB 15 MG TAB PO SCH (20:31)
[2023-09-24 05:04] LABS: Basophils # (auto) 0.01 K/uL (0.00-0.20); Basophils % (auto) 0.1 %; Eosinophils # (auto) 0.17 K/uL (0.00-0.50); Eosinophils % (auto) 2.5 %; Hemoglobin 8.1 g/dl (12.0-16.0); Immature Granulocytes # (auto) 0.03 K/uL (0.01-0.20); Immature Granulocytes % (auto) 0.4 %; Lymphocytes # (auto) 0.99 K/uL (1.20-3.40); Lymphocytes % (auto) 14.8 %; Mean Corpuscular Hemoglobin 29.2 pg (25.0-34.0); Mean Corpuscular Hgb Conc 32.4 g/dL (32.0-36.0); Mean Corpuscular Volume 90.3 fL (80.0-100.0); Neutrophils # (auto) 4.87 K/uL (1.40-6.50); Neutrophils % (auto) 73.2 %; Platelet Count 206 K/uL (130-400); RDW Coefficient of Variation 14.8 % (11.5-14.5); RDW Standard Deviation 49.3 fL (36.4-46.3); Red Blood Count 2.77 M/uL (4.20-5.40); White Blood Count 6.67 K/ul (4.8-10.8)
[2023-09-24 05:13] LABS: BUN Creatinine Ratio 12.2 (10-20); Calcium 7.6 mg/dl (8.6-10.3); Creatinine Clr Calc Pharmacy 80.5 ml/min; Est GFR (African American) 113.6 ml/min; Magnesium 1.9 mg/dl (1.7-2.4); Phosphorus 2.7 mg/dl (2.5-4.9); Potassium 3.1 mmol/L (3.5-5.1)
[2023-09-24] MEDS: AMIODARONE 200 MG TAB PO SCH (10:53)
[2023-09-24] MEDS: METOPROLOL SUCC 25MG EXT REL TAB PO SCH (10:53)
[2023-09-24] MEDS: oxyCODONE HCL IR 5 MG TAB (IMMEDIATE RELEASE) PO PRN (10:58)
--- NOTE | 2023-09-24 16:01 | Hospitalist Progress Note ---
Date of Service September 24, 2023 Assessment & Plan (1) SBO (small bowel obstruction): Plan: SBO obstruction in the setting of Recent Surgery - NGT removed - High-grade small bowel obstruction with twisting of the mesentery and at least two transition points suggestive of a closed loop obstruction Status post exploratory laparotomy, bowel resection Surgery team managing -IV Zosyn discontinued per surgery recommendation Patient is tolerating p.o. diet Added oxycodone for pain control Hypotension -Status post fluid resuscitation Resolved -Improved with blood transfusion Anemia Postoperative Hemoglobin drop from 12 to 8 to 5. Hemoglobin improved after blood transfusion. Blood transfusion on 09/20 Likely acute blood loss anemia Symptomatic PVCs -Resume amiodarone /metoprolol as able to take p.o. Essential Tremor -May resume primidone as able to take p.o. GERD -PPI IV as per surgical team Anxiety - resume clonazepam, escitalopram, mirtazapine is able to take p.o. HLD -May resume statin as able to take p.o. COPD - continue home inhalers CAD -Resuming home medications as able to take p.o. VTE Prophylaxis: SCDs, until surgery clears Code: Full Diet: Clear liquid diet (2) Abdominal pain: (3) COPD (chronic obstructive pulmonary disease): (4) Essential tremor: (5) CAD (coronary artery disease): Admission and Anticipated Discharge Date Admission Date: September 19, 2023 Subjective NG tube removed! Patient is tolerating p.o. diet. Having bowel movements. Review of Systems Review of Systems: All systems reviewed & are unremarkable except as noted in Subjective Physical Exam Physical Exam: General: Awake, conversant. Cachectic. Heart: S1, S2/regular rate and rhythm, no murmur rubs or gallops Lungs: Clear to auscultation bilaterally. Normal effort Extremities: No clubbing/cyanosis. No edema Behavior: Appropriate, cooperative Results & Data Results & Data Vital Signs (Past 12 Hours) Vital Signs Temp Pulse Pulse Resp BP BP Pulse Ox 09/24/23 11:40 37.0 C 71 18 170/72 H 95 09/24/23 08:30 09/24/23 07:34 70 09/24/23 07:24 37.1 C 75 20 160/76 H 93 O2 Del Method 09/24/23 11:40 Room Air 09/24/23 08:30 Room Air 03/07/24 07:34 09/24/23 07:24 Room Air PG Care Time/CCT Total # of Minutes Spent Total Time Spent with Patient: Total time spent is greater than 50% in coordination of care (as documented) at patient's floor/unit and/or counseling patient: Coding Level of Care Code 08120 SUB INP/OBS CARE 2/35MIN Diagnoses SBO (small bowel obstruction) K56.609 Abdominal pain R10.9 COPD (chronic obstructive pulmonary disease) J44.9 Essential tremor G25.0 CAD (coronary artery disease) I25.10
--- NOTE | 2023-09-24 17:19 | Surgery Progress Note ---
Date of Service September 24, 2023 Assessment & Plan (1) SBO (small bowel obstruction): (2) Crohns disease: (3) Acute blood loss anemia: Plan: likely due to postoperative bleeding and hemodilution hgb stable at 8.0 , 2 units of PRBCs 09/21/2023 (previously 5.2) hemodynamically stable Plan POD # 5 s/p ex lap, small bowel resection avss hgb 8.0 + return of bowel function Plan: Continue pain management as needed continue IV fluids Continue IV zofran prn nausea continue clear liquids for today given mild distention OOB to chair PT/OT discontinue IV antibiotics continue medical management Dr. Velasquez has seen and examined patient agrees with above. Admission and Anticipated Discharge Date Admission Date: September 19, 2023 Subjective having episdoes of LUQ abdominal pain, comes in waves then resolved passing gas and bowel movememnt no n,v tolerating clear liquids Physical Exam Constitutional: WD/WN, vitals as above + thin, + frail appearing, cooperative and comfortable; no acute distress and not ill appearing Respiratory: normal respiratory effort; no respiratory distress and no labored breathing Gastrointestinal (Abdomen): Inspection/Auscultation: + abdomen distended (mildly) and + abdominal surgical incision (c/d/i with miranda) Percussion/Palpation: + abdomen tender (LUQ) and abdomen soft; no guarding, abdomen not rigid and abdomen not firm Skin: no rashes, warm and dry Psychiatric: Orientation: alert and oriented x 3 Results & Data Vital Signs (Past 12 Hours) Vital Signs Temp Pulse Pulse Resp BP BP Pulse Ox 09/24/23 17:01 36.9 C 71 19 170/70 H 97 09/24/23 16:00 65 09/24/23 11:40 37.0 C 71 18 170/72 H 95 09/24/23 08:30 09/24/23 07:34 70 09/24/23 07:24 37.1 C 75 20 160/76 H 93 O2 Del Method 09/24/23 17:01 Room Air 09/24/23 16:00 09/24/23 11:40 Room Air 09/24/23 08:30 Room Air 09/24/23 07:34 09/24/23 07:24 Room Air Laboratory Results 09/24/23 Range/Units 04:05 WBC 6.67 (4.8-10.8) K/ul RBC 2.77 L (4.20-5.40) M/uL Hgb 8.1 L (12.0-16.0) g/dl Hct 25.0 L (37.0-47.0) % MCV 90.3 (80.0-100.0) fL MCH 29.2 (25.0-34.0) pg MCHC 32.4 (32.0-36.0) g/dL RDW Std Deviation 49.3 H (36.4-46.3) fL RDW Coeff of Harish 14.8 H (11.5-14.5) % Plt Count 206 (130-400) K/uL MPV 10.0 (9.4-12.4) fL Immature Gran % (Auto) 0.4 % Neut % (Auto) 73.2 % Lymph % (Auto) 14.8 % [place] % (Auto) 9.0 % Eos % (Auto) 2.5 % Baso % (Auto) 0.1 % Neut # (Auto) 4.87 (1.40-6.50) K/uL Lymph # (Auto) 0.99 L (1.20-3.40) K/uL [place] # (Auto) 0.60 H (0.11-0.59) K/uL Eos # (Auto) 0.17 (0.00-0.50) K/uL Baso # (Auto) 0.01 (0.00-0.20) K/uL Immature Gran # (Auto) 0.03 (0.01-0.20) K/uL Sodium 136 (136-145) mmol/L Potassium 3.1 L (3.5-5.1) mmol/L Chloride 102 (98-107) mmol/L Carbon Dioxide 29 (21-32) mmol/L Anion Gap 5 (3-11) BUN 6 (6-23) mg/dl Creatinine 0.49 L (0.6-1.2) mg/dl Est Cr Clr Drug Dosing 80.5 ml/min Est GFR ( Amer) 113.6 ml/min Est GFR (Non-Af Amer) 98.0 ml/min BUN/Creatinine Ratio 12.2 (10-20) Glucose 101 H (70-99(Fasting)) mg/dl Calcium 7.6 L (8.6-10.3) mg/dl Phosphorus 2.7 (2.5-4.9) mg/dl Magnesium 1.9 (1.7-2.4) mg/dl (2) Crohns disease Digestive disease complication type: with intestinal obstruction Gastrointestinal tract location: unspecified location Qualified Code(s): K50.912 - Crohn's disease, unspecified, with intestinal obstruction
[2023-09-25] MEDS: PANTOprazole 40 MG TAB PO SCH (08:11)
[2023-09-25] MEDS ORDERED: oxyCODONE HCL IR 5 MG TAB (IMMEDIATE RELEASE) PO PRN (08:15)
[2023-09-25 08:56] LABS: Hematocrit (blood only) 29.7 % (37.0-47.0); Hemoglobin 9.9 g/dl (12.0-16.0); Mean Corpuscular Hemoglobin 29.8 pg (25.0-34.0); Mean Corpuscular Hgb Conc 33.3 g/dL (32.0-36.0); Mean Corpuscular Volume 89.5 fL (80.0-100.0); Mean Platelet Volume 9.1 fL (9.4-12.4); Platelet Count 280 K/uL (130-400); RDW Coefficient of Variation 14.8 % (11.5-14.5); RDW Standard Deviation 48.8 fL (36.4-46.3); Red Blood Count 3.32 M/uL (4.20-5.40); White Blood Count 7.64 K/ul (4.8-10.8)
[2023-09-25 09:22] LABS: BUN Creatinine Ratio 10.2 (10-20); Calcium 8.3 mg/dl (8.6-10.3); Creatinine Clr Calc Pharmacy 68.8 ml/min; Est GFR (African American) 113.6 ml/min; Potassium 3.3 mmol/L (3.5-5.1)
[2023-09-25] MEDS: POTASSIUM CHLORIDE CRTAB 20 MEQ TABCR PO STA (09:31)
[2023-09-25 09:52] LABS: Basophils # (auto) 0.02 K/uL (0.00-0.20); Basophils % (auto) 0.3 %; Eosinophils # (auto) 0.31 K/uL (0.00-0.50); Eosinophils % (auto) 4.1 %; Immature Granulocytes # (auto) 0.02 K/uL (0.01-0.20); Immature Granulocytes % (auto) 0.3 %; Lymphocytes % (auto) 20.9 %; Monocytes # (auto) 0.64 K/uL (0.11-0.59); Monocytes % (auto) 8.4 %; Neutrophils # (auto) 5.05 K/uL (1.40-6.50); Polychromasia 1+
--- NOTE | 2023-09-25 11:13 | Surgery Progress Note ---
Date of Service September 25, 2023 Assessment & Plan (1) SBO (small bowel obstruction): (2) Crohns disease: (3) Acute blood loss anemia: Plan: likely due to postoperative bleeding and hemodilution hgb 9.9 today , 2 units of PRBCs 09/21/2023 (previously 5.2) hemodynamically stable Plan POD # 5 s/p ex lap, small bowel resection avss hgb 9.9 + return of bowel function Plan: Continue pain management as needed advance to full liquids Continue IV zofran prn nausea d/v iv fluids OOB to chair PT/OT continue medical management Dr. Dodson covering for weekend Dr. Baker has seen and examined patient, agrees with above. Admission and Anticipated Discharge Date Admission Date: September 19, 2023 Subjective feeling better than yesterday pain starting to increase but ambulating room no n,v tolerating clear liquids passing gas and having liquid bowel movements Physical Exam Constitutional: WD/WN, vitals as above + thin, + frail appearing, cooperative and comfortable; no acute distress and not ill appearing Respiratory: normal respiratory effort; no respiratory distress Gastrointestinal (Abdomen): Inspection/Auscultation: abdomen normal to inspection and + abdominal surgical incision (c/d/i with miranda); abdomen not distended Percussion/Palpation: + abdomen tender (at midline incision) and abdomen soft; no guarding, abdomen not rigid and abdomen not firm Skin: no rashes, warm and dry Psychiatric: Orientation: alert and oriented x 3 Results & Data Vital Signs (Past 12 Hours) Vital Signs Temp Pulse Pulse Resp BP BP Pulse Ox 09/25/23 08:09 36.8 C 64 18 161/77 H 93 09/25/23 07:34 36.7 C 68 14 153/67 H 95 O2 Del Method 09/25/23 08:09 Room Air 09/25/23 07:34 Room Air Laboratory Results 09/25/23 Range/Units 08:29 WBC 7.64 (4.8-10.8) K/ul RBC 3.32 L (4.20-5.40) M/uL Hgb 9.9 L (12.0-16.0) g/dl Hct 29.7 L (37.0-47.0) % MCV 89.5 (80.0-100.0) fL MCH 29.8 (25.0-34.0) pg MCHC 33.3 (32.0-36.0) g/dL RDW Std Deviation 48.8 H (36.4-46.3) fL RDW Coeff of Harish 14.8 H (11.5-14.5) % Plt Count 280 (130-400) K/uL MPV 9.1 L (9.4-12.4) fL Immature Gran % (Auto) 0.3 % Neut % (Auto) 66.0 % Lymph % (Auto) 20.9 % [place] % (Auto) 8.4 % Eos % (Auto) 4.1 % Baso % (Auto) 0.3 % Neut # (Auto) 5.05 (1.40-6.50) K/uL Lymph # (Auto) 1.60 (1.20-3.40) K/uL [place] # (Auto) 0.64 H (0.11-0.59) K/uL Eos # (Auto) 0.31 (0.00-0.50) K/uL Baso # (Auto) 0.02 (0.00-0.20) K/uL Immature Gran # (Auto) 0.02 (0.01-0.20) K/uL Polychromasia 1+ Sodium 137 (136-145) mmol/L Potassium 3.3 L (3.5-5.1) mmol/L Chloride 101 (98-107) mmol/L Carbon Dioxide 30 (21-32) mmol/L Anion Gap 6 (3-11) BUN 5 L (6-23) mg/dl Creatinine 0.49 L (0.6-1.2) mg/dl Est Cr Clr Drug Dosing 68.8 ml/min Est GFR ( Amer) 113.6 ml/min Est GFR (Non-Af Amer) 98.0 ml/min BUN/Creatinine Ratio 10.2 (10-20) Glucose 105 H (70-99(Fasting)) mg/dl Calcium 8.3 L (8.6-10.3) mg/dl (2) Crohns disease Digestive disease complication type: with intestinal obstruction Gastrointestinal tract location: unspecified location Qualified Code(s): K50.912 - Crohn's disease, unspecified, with intestinal obstruction
[2023-09-25] MEDS: oxyCODONE HCL IR 5 MG TAB (IMMEDIATE RELEASE) PO PRN (12:32)
[2023-09-25] MEDS: PRIMIDONE 250 MG TAB PO SCH (13:33)
--- NOTE | 2023-09-25 15:30 | Hospitalist Progress Note ---
Date of Service September 25, 2023 Assessment & Plan (1) SBO (small bowel obstruction): Plan: SBO obstruction in the setting of Recent Surgery - NGT removed - High-grade small bowel obstruction with twisting of the mesentery and at least two transition points suggestive of a closed loop obstruction Status post exploratory laparotomy, bowel resection Surgery team managing -IV Zosyn discontinued per surgery recommendation Patient is tolerating p.o. diet Added oxycodone for pain control Hypotension -Status post fluid resuscitation Resolved -Improved with blood transfusion Anemia Postoperative Hemoglobin drop from 12 to 8 to 5. Hemoglobin improved after blood transfusion. Blood transfusion on 09/20 Likely acute blood loss anemia Symptomatic PVCs -Resume amiodarone /metoprolol as able to take p.o. Essential Tremor -Resumed primidone GERD -PPI IV as per surgical team Anxiety - resume clonazepam, escitalopram, mirtazapine is able to take p.o. HLD -May resume statin as able to take p.o. COPD - continue home inhalers CAD -Resuming home medications as able to take p.o. VTE Prophylaxis: SCDs, until surgery clears Code: Full Diet: Diet being advanced by surgery team (2) Abdominal pain: (3) COPD (chronic obstructive pulmonary disease): (4) Essential tremor: (5) CAD (coronary artery disease): Admission and Anticipated Discharge Date Admission Date: September 19, 2023 Subjective Patient feels well. Denies chest pain or shortness of breath. Tolerating clear liquid diet. She tells me that she is going to be advanced to a full liquid diet. Review of Systems Review of Systems: All systems reviewed & are unremarkable except as noted in Subjective Physical Exam Physical Exam: General: Awake, conversant. Cachectic. Heart: S1, S2/regular rate and rhythm, no murmur rubs or gallops Lungs: Clear to auscultation bilaterally. Normal effort Extremities: No clubbing/cyanosis. No edema Behavior: Appropriate, cooperative Results & Data Results & Data Vital Signs (Past 12 Hours) Vital Signs Temp Pulse Pulse Resp BP BP Pulse Ox 09/25/23 11:32 36.8 C 62 16 149/71 H 92 09/25/23 08:09 36.8 C 64 18 161/77 H 93 09/25/23 07:34 36.7 C 68 14 153/67 H 95 O2 Del Method 09/25/23 11:32 Room Air 09/25/23 08:09 Room Air 09/25/23 07:34 Room Air Laboratory Results Abnormal lab results 09/25/23 Range/Units 08:29 RBC 3.32 L (4.20-5.40) M/uL Hgb 9.9 L (12.0-16.0) g/dl Hct 29.7 L (37.0-47.0) % RDW Std Deviation 48.8 H (36.4-46.3) fL RDW Coeff of Harish 14.8 H (11.5-14.5) % MPV 9.1 L (9.4-12.4) fL [place] # (Auto) 0.64 H (0.11-0.59) K/uL Potassium 3.3 L (3.5-5.1) mmol/L BUN 5 L (6-23) mg/dl Creatinine 0.49 L (0.6-1.2) mg/dl Glucose 105 H (70-99(Fasting)) mg/dl Calcium 8.3 L (8.6-10.3) mg/dl PG Care Time/CCT Total # of Minutes Spent Total Time Spent with Patient: Total time spent is greater than 50% in coordination of care (as documented) at patient's floor/unit and/or counseling patient: Coding Level of Care Code 44934 SUB INP/OBS CARE 2/35MIN Diagnoses SBO (small bowel obstruction) K56.609 Abdominal pain R10.9 COPD (chronic obstructive pulmonary disease) J44.9 Essential tremor G25.0 CAD (coronary artery disease) I25.10
--- NOTE | 2023-09-26 10:26 | Surgery Progress Note ---
Date of Service September 26, 2023 Assessment & Plan (1) SBO (small bowel obstruction): Plan: POD #6 s/p Ex Lap, Small Bowel Resection, Reduced Internal Hernia H and H stable this morning. She remains afebrile. She is tolerating full liquid diet and has started moving her bowels- would like to try low fiber diet today, will advance. Encouraged ambulation. Pain is controlled. Patient seen and examined with Dr. Dodson. Admission and Anticipated Discharge Date Admission Date: September 19, 2023 Supervising Physician Co-Signing Physician Notes Advance to low fiber diet Encourage ambulation/IS Dressing removed, does not need to be replaced If she tolerates her diet she may be stable for discharge tomorrow Subjective Cary is resting in bed, reports that she is feeling about the same as yesterday. She notes burning near her incision. She has been up walking around and is tolerating a full liquid diet. She had BM last evening. Review of Systems Constitutional: as per Subjective / HPI; no fever and no chills Gastrointestinal: + abdominal pain (pain at incision site. ); no nausea and no vomiting Physical Exam Constitutional: WD/WN, vitals as above + thin, + frail appearing, cooperative and comfortable; no acute distress and not ill appearing Respiratory: normal respiratory effort; no respiratory distress Gastrointestinal (Abdomen): Inspection/Auscultation: abdomen normal to in spection and + abdominal surgical incision (c/d/i with miranda, dressing removed. ); abdomen not distended Percussion/Palpation: + abdomen tender (at midline incision) and abdomen soft; no guarding, abdomen not rigid and abdomen not firm Skin: no rashes, warm and dry Psychiatric: Orientation: alert and oriented x 3 Results & Data Vital Signs (Past 12 Hours) Vital Signs Temp Pulse Resp BP Pulse Ox O2 Del Method 09/26/23 07:07 36.4 C L 75 16 147/55 H 95 Room Air PG Care Time/CCT Total # of Minutes Spent Total Time Spent with Patient: Total time spent is greater than 50% in coordination of care (as documented) at patient's floor/unit and/or counseling patient: Coding Level of Care Code 47265 Post Operative Follow-Up Diagnoses SBO (small bowel obstruction) K56.609
--- NOTE | 2023-09-26 12:36 | Hospitalist Progress Note ---
Date of Service September 26, 2023 Assessment & Plan (1) SBO (small bowel obstruction): Plan: SBO obstruction in the setting of Recent Surgery - NGT removed - High-grade small bowel obstruction with twisting of the mesentery and at least two transition points suggestive of a closed loop obstruction Status post exploratory laparotomy, bowel resection Surgery team managing -IV Zosyn discontinued per surgery recommendation Patient is tolerating p.o. diet Added oxycodone for pain control Hypotension -Status post fluid resuscitation Resolved -Improved with blood transfusion Anemia Postoperative Hemoglobin drop from 12 to 8 to 5. Hemoglobin improved after blood transfusion. Blood transfusion on 09/20 Likely acute blood loss anemia Symptomatic PVCs -Resumed amiodarone /metoprolol Essential Tremor -Resumed primidone GERD -PPI IV as per surgical team Anxiety - resumed clonazepam, escitalopram, mirtazapine HLD -May resume statin COPD - continue home inhalers CAD -Resumed home medications VTE Prophylaxis: SCDs, until surgery clears Code: Full Diet: Diet being advanced by surgery team (2) Abdominal pain: (3) COPD (chronic obstructive pulmonary disease): (4) Essential tremor: (5) CAD (coronary artery disease): Admission and Anticipated Discharge Date Admission Date: September 19, 2023 Subjective Patient feels well today. Says that she felt a little too full after the full liquid diet yesterday. Review of Systems Review of Systems: All systems reviewed & are unremarkable except as noted in Subjective Physical Exam Physical Exam: General: Awake, conversant. Cachectic. Heart: S1, S2/regular rate and rhythm, no murmur rubs or gallops Lungs: Clear to auscultation bilaterally. Normal effort Extremities: No clubbing/cyanosis. No edema Behavior: Appropriate, cooperative Results & Data Results & Data Vital Signs (Past 12 Hours) Vital Signs Temp Pulse Resp BP Pulse Ox O2 Del Method 09/26/23 07:07 36.4 C L 75 16 147/55 H 95 Room Air PG Care Time/CCT Total # of Minutes Spent Total Time Spent with Patient: Total time spent is greater than 50% in coordination of care (as documented) at patient's floor/unit and/or counseling patient: Coding Level of Care Code 42954 SUB INP/OBS CARE 2/35MIN Diagnoses SBO (small bowel obstruction) K56.609 Abdominal pain R10.9 COPD (chronic obstructive pulmonary disease) J44.9 Essential tremor G25.0 CAD (coronary artery disease) I25.10
[2023-09-27] MEDS: ACETAMINOPHEN 325 MG TAB PO PRN (01:27)
--- NOTE | 2023-09-27 09:06 | Surgery Progress Note ---
Date of Service September 27, 2023 Assessment & Plan (1) SBO (small bowel obstruction): Plan: POD #7 s/p Ex Lap, Small Bowel Resection, Reduced Internal Hernia H and H stable this morning. She remains afebrile. She is tolerating low fiber diet and continues to move her bowels. Encouraged ambulation. Pain is controlled. Ok for discharge to home today. She will follow-up with Dr. Baker. Patient seen and examined with Dr. Dodson. Admission and Anticipated Discharge Date Admission Date: September 19, 2023 Supervising Physician Co-Signing Physician Notes Continue low fiber diet Doing well with return of bowel function D/C home today Subjective Cary resting in bed, notes that she continues to feel better. She has been having episodes of loose stool overnight. She is tolerating a low fiber diet. Review of Systems Constitutional: as per Subjective / HPI; no fever and no chills Gastrointestinal: + abdominal pain (pain at incision site. ); no nausea and no vomiting Physical Exam Constitutional: WD/WN, vitals as above + thin, + frail appearing, cooperative and comfortable; no acute distress and not ill appearing Respiratory: normal respiratory effort; no respiratory distress Gastrointestinal (Abdomen): Inspection/Auscultation: abdomen normal to inspection and + abdominal surgical incision (c/d/i with miranda, no signs of infection or incisional separation ); abdomen not distended Percussion/Palpation: + abdomen tender (at midline incision) and abdomen soft; no guarding, abdomen not rigid and abdomen not firm Skin: no rashes, warm and dry Psychiatric: Orientation: alert and oriented x 3 Results & Data Vital Signs (Past 12 Hours) Vital Signs Temp Pulse Resp BP Pulse Ox O2 Del Method 09/27/23 06:55 36.7 C 65 16 114/52 L 96 Room Air PG Care Time/CCT Total # of Minutes Spent Total Time Spent with Patient: Total time spent is greater than 50% in coordination of care (as documented) at patient's floor/unit and/or counseling patient: Coding Level of Care Code 59825 Post Operative Follow-Up Diagnoses SBO (small bowel obstruction) K56.609
== END 2023-09-27 12:07 | disposition home health service (06) | DRG 329 ==
LOC: ED 16:15 → 2S 20:38 → 1E 09-20 05:34 → 4W 09-22 21:16 → 2W 09-23 10:26 → 3N 09-24 23:42

== ENCOUNTER 2025-01-07 20:21 | Observation (INO) ==
[2025-01-07 21:57] LABS: iSTAT Creatinine 0.8 mg/dl (0.6-1.3); iSTAT Hemoglobin 11.9 g/dl (12.0-16.0); iSTAT Ionized Calcium 1.2 mmol/l (1.12-1.32); iSTAT Potassium 3.8 mmol/L (3.3-5.0)
[2025-01-07 22:05] LABS: Basophils # (auto) 0.06 K/uL (0.00-0.20); Basophils % (auto) 0.7 %; Eosinophils # (auto) 0.76 K/uL (0.00-0.50); Eosinophils % (auto) 9.3 %; Hematocrit (blood only) 35.3 % (37.0-47.0); Hemoglobin 11.4 g/dl (12.0-16.0); Immature Granulocytes # (auto) 0.04 K/uL (0.01-0.20); Immature Granulocytes % (auto) 0.5 %; Lymphocytes # (auto) 1.99 K/uL (1.20-3.40); Lymphocytes % (auto) 24.4 %; Mean Corpuscular Hemoglobin 29.2 pg (25.0-34.0); Mean Corpuscular Hgb Conc 32.3 g/dL (32.0-36.0); Mean Corpuscular Volume 90.5 fL (80.0-100.0); Mean Platelet Volume 9.6 fL (9.4-12.4); Monocytes # (auto) 0.81 K/uL (0.11-0.59); Monocytes % (auto) 9.9 %; Neutrophils # (auto) 4.51 K/uL (1.40-6.50); Neutrophils % (auto) 55.2 %; Platelet Count 469 K/uL (130-400); RDW Coefficient of Variation 13.2 % (11.5-14.5); RDW Standard Deviation 43.5 fL (36.4-46.3); White Blood Count 8.17 K/ul (4.8-10.8)
[2025-01-07 22:23] LABS: Albumin Globulin Ratio 0.8 (0.9-2); Albumin Level 3.1 gm/dl (3.4-5.0); BUN Creatinine Ratio 19.7 (10-20); Bilirubin,Total 0.2 mg/dl (0.2-1.0); Calcium 9.4 mg/dl (8.6-10.3); Creatinine Clr Calc Pharmacy 46.5 ml/min; Globulin 3.7 gm/dl (2.5-4.0); Potassium 3.9 mmol/L (3.5-5.1); Total Protein 6.8 gm/dl (6.0-8.3)
[2025-01-07 22:30] LABS: Troponin I High Sensitivity 7.6 pg/ml (0-14)
[2025-01-07 22:38] LABS: INR 0.9 (0.9-1.1); Partial Thromboplastin Ratio 1.1; Partial Thromboplastin Time 29 Seconds (21-31); Prothrombin Time 10.3 Seconds (9.0-12.0)
[2025-01-07 23:08] LABS: Appearance Urine Clear (Clear); Bacteria Urine Automated 1+ (None Seen); Bilirubin Urine Negative (Negative); Blood Urine Trace (Negative); Cast Urine Automated 0-2 /lpf (0-2); Color Urine Yellow; Epithelial Cell Urine Auto 0-2 /hpf (0-2); Glucose Urine UA Negative (Negative); Ketones Urine Negative (Negative); Leukocyte Esterase Urine 1+ (Negative); Nitrite Urine Negative (Negative); Protein Urine Trace (Negative); Specific Gravity Urine 1.016 (1.000-1.030); Urobilinogen Urine Negative (Negative); WBC Urine Automated 0-5 /hpf (0-5)
--- NOTE | 2025-01-07 23:58 | Emergency Department Note ---
Impression & Plan GI (gastrointestinal bleed), Crohns disease, Abdominal pain, C. difficile colitis ED Provider Note ED Provider Note NAME: ARTHUR SIMPSON AGE:74 SEX: Female : 1950 ARRIVES VIA: Private vehicle INFORMANT: Patient ED PROVIDER(s): Nuria Cunningham DO CHIEF COMPLAINT: GI bleed HPI: This is a 74-year-old female who presents to the emergency department due to concern for GI bleed. Patient was just discharged from [facility] earlier today and upon arrival home went to have a bowel movement and noticed a lot of blood. She denies noting any clots. Patient was admitted at [facility] for C. difficile colitis. She states she received enema, vancomycin, and was discharged on fidaxomicin. She states no use of anticoagulation. She denies any prior similar episodes. Patient does have extensive GI history including Crohn's disease. She states they were uncertain at [facility] how she acquired C. difficile. She states she had been having diarrhea for a month. She states after being admitted for 12 days down there she was improved and came home today however upon having this episode they called back down and were instructed to come here for further evaluation. She denies fevers or chills. She states she is nauseated but has not vomited. She denies chest pain, shortness of breath, or dizziness. No bleeding from any other source. PAST MEDICAL HISTORY:See Below PAST SURGICAL HISTORY:See Below FAMILY HISTORY:See Below SOCIAL HISTORY:See Below HOME MEDICATIONS:See Below ALLERGIES:See Below VITALS:See Below PHYSICAL EXAMINATION: GENERAL: alert, unwell appearing, petite body habitus, no distress, non-toxic EYE EXAM: normal conjunctiva, PERRL and EOM's grossly intact OROPHARYNX: no exudate, no erythema, lips, buccal mucosa, and tongue normal and mucous membranes are moist NECK: supple, no nuchal rigidity, no adenopathy, non-tender LUNGS: Clear to auscultation. Normal chest wall mechanics, no w/r/r HEART: no murmurs, S1 normal and S2 normal ABDOMEN: abdomen soft, generalized discomfort with palpation, normo-active bowel sounds, no masses, no rebound or guarding. SKIN: no rashes, petechiae, orbruising UPPER EXTREMITIES: upper extremities are grossly normal. FROM, nml pulses b/l. LOWER EXTREMITIES: No pitting edema. FROM, nml pulses b/l. NEURO EXAM: Normal sensorium, cranial nerves II-XII grossly intact, normal speech, no facial droop,nogross weakness of arms, no gross weakness of legs. Gross sensation intact. No ataxia. Vital Signs: reviewed and remarkable Differential Diagnosis: diverticulosis, AVM, coagulopathy, colitis, inflammatory bowel disease, malignancy, epistaxis, fissure, hemorrhoids, as well as others were entertained. MEDICAL DECISION MAKING: This is a 74-year-old female who presents emergency room due to concern for GI bleed when she went to the bathroom this evening after returning home from being admitted at [facility]. Patient was treated there for C. difficile colitis. Patient also has a history of Crohn's no prior surgical intervention. Patient denies any use of anticoagulation, and denies any prior history of GI bleed. Patient was afebrile she was noted to be mildly hypotensive on arrival however other vital signs stable. Labs drawn and sent, IV established, EKG performed at bedside interpreted by me and patient monitored on telemetry. She was started on IV fluids and given IV pantoprazole and IV Zofran. She was also given a dose of IV Dilaudid for pain control as well as IV Tylenol. Patient sent for CT of the abdomen and pelvis. Patient with extensive proctitis and proctocolitis. No evidence of active source of bleeding, no bowel obstruction, no perforation. Patient's H&H stable compared to prior. Case discussed with on-call GI at [facility] given she was just discharged within 24 hours. They recommended observation overnight, recheck of her H&H, monitoring for any changes. They were happy to except if anything recurs or worsens. Case discussed with on-call hospitalist team for additional evaluation and management. Consultation(s): 0118: Discussed with Dr. Antonio, GI, at [facility]. 0135: Discussed with Dr. Acevedo, [facility] hospitalist team, for additional evaluation and management. ER Treatment Provided: See below Diagnostics Interpreted By Me: -ECG: Normal sinus at 61, normal axis, normal intervals, no acute ST/T wave changes -Cardiac Monitoring: An order was placed for continuous cardiac monitoring. The monitor shows a rate of 55 with sinus bradycardia rhythm. -Laboratory studies: As stated above and show below. -Imaging studies: ct a/p - no sbo, no perf Triage Nursing Note Reviewed Prior/Outside Records Reviewed Past Med/Surg History Problem List Severe protein-calorie malnutrition Proctitis Clostridioides difficile infection Bleeding per rectum C. difficile colitis (Acute) Abdominal pain (Acute) GI (gastrointestinal bleed) (Acute) Difficulty sleeping Symptomatic PVCs Hypothyroidism due to amiodarone Chronic sinus infection Insomnia Frail elderly COPD (chronic obstructive pulmonary disease) Underweight Paronychia of left middle finger Palpitation Essential tremor Generalized anxiety disorder Hypercholesterolemia (Chronic) CAD (coronary artery disease) 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, [facility]: Rojas to LAD, SARIKA to RCA, saphenous vein graft to ramus intermedius, saphenous vein graft to om 2 Crohns disease (Chronic) HTN (hypertension) Hyperlipidemia CAD (coronary artery disease) Depression Crohn's colitis Fatigue Elevated LFTs Serum calcium elevated Right hip pain Elevated TSH Osteoporosis Medical History Hx SBO Night sweats Positive culture findings in sputum Fever Dog bite, hand Chronic pain of both shoulders Joint ache Anxiety Acute hyponatremia Elevated C-reactive protein Elevated erythrocyte sedimentation rate Intractable abdominal pain Acute electrocardiogram changes Substernal chest pain Acute blood loss anemia Nausea Abdominal pain Non-healing open wound of toe Failure of rotator cuff repair Tobacco abuse Hypokalemia Left shoulder pain Diarrhea Surgical History History of reversal of ileostomy H/O total colectomy H/O ileostomy History of coronary artery bypass graft Family History Sister Breast cancer Colorectal cancer Crohn's disease Mother Colorectal cancer Anxiety Myocardial infarction Father Myocardial infarction Daughter Ulcerative colitis Other Cancer Heart disease Hypertension Denies family history of Ovarian cancer Social History Smoking Status: Former smoker Tobacco Type: Cigarettes Age Started Using Tobacco: 16; packs per day: 0.5; Cigarettes Per Day: sometimes as much as 1 pack/day; Second Hand Exposure: No; Do You Dip or Chew Tobacco: No; Tobacco Cessation Education Requested by Patient: No Hx Alcohol Use: Yes Alcohol type: wine Hx Substance Use: No Preferred Language: Citizen Of [place] Communication Ability: Effective Rn Care Manager Required: No Beliefs That Will Affect Care: None marital status: / Current Living Situation: Family Current Living Situation Comment: home with daughter current occupational status: retired How many Children do You have: 2 How many Children do You have Comment: 1 son is Other Information That Helps Us Care for You: No Feels Safe at Home: Yes Safety Concerns: Feels Safe At This Time Childhood Exposure to Second-Hand Smoke: No Diet: regular caffeine: Yes Dental Care, Regularly: Yes Physical Activity Frequency: 3-4 Times per Week Seatbelt Use: always Sunscreen Use: Yes Assistive Devices: None Allergies Allergies Allergy/AdvReac Type Severity Reaction Status Date / Time No Known Allergies Allergy Verified 01/07/25 22:00 Home Meds Home Medications Medication Instructions Recorded Confirmed acetaminophen 500 mg tablet 1,000 mg PO Q8H PRN Pain 04/19/22 01/07/25 (Tylenol Extra Strength) dicyclomine 10 mg capsule 10 mg PO TID PRN abdominal cramping 12/16/24 01/07/25 escitalopram oxalate 20 mg tablet 20 mg PO QAM 12/16/24 01/07/25 (Lexapro) metoprolol succinate 25 mg 50 mg PO HS 12/16/24 01/07/25 tablet,extended release 24 hr mirtazapine 15 mg tablet 15 mg PO HS 12/16/24 01/07/25 nitroglycerin 0.4 mg sublingual 0.4 mg sublingual UD PRN Chest Pain 12/16/24 01/07/25 tablet omeprazole 40 mg capsule,delayed 40 mg PO BID 12/16/24 01/07/25 release rosuvastatin 40 mg tablet 40 mg PO DAILY 12/16/24 01/07/25 vedolizumab 300 mg intravenous 300 mg IV .[id number] 12/16/24 01/07/25 solution (Entyvio) amlodipine 5 mg tablet 5 mg PO DAILY 01/07/25 01/07/25 aspirin 81 mg tablet,delayed 81 mg PO DAILY 01/07/25 01/07/25 release budesonide 9 mg tablet,delayed and 9 mg PO QAM 01/07/25 01/07/25 extended release bupropion HCl 150 mg 24 hr tablet, 150 mg PO QAM 01/07/25 01/07/25 extended release (Wellbutrin XL) diazepam 5 mg-7.5 mg-10 mg rectal 5 mg ID TID PRN RECTAL PAIN/SPASMS 01/07/25 01/07/25 kit famotidine 20 mg tablet 20 mg PO BID PRN Heartburn 01/07/25 01/07/25 fidaxomicin 200 mg tablet 200 mg PO Q12H 01/07/25 01/07/25 gabapentin 100 mg capsule 200 mg PO TID 01/07/25 01/07/25 hydrocortisone acetate 25 mg 25 mg ID BID PRN Hemorrhoids 01/07/25 01/07/25 rectal suppository levothyroxine 50 mcg tablet 50 mcg PO DAILYBB 01/07/25 01/07/25 ondansetron 4 mg disintegrating 4 mg PO TID PRN NAUSEA/VOMITING 01/07/25 01/07/25 tablet oxycodone 5 mg tablet 5 mg PO TID PRN Pain (Scale Score 01/07/25 01/07/25 4-6) sodium phosphates 19 gram-7 118 ml ID DAILY PRN Constipation 01/07/25 01/07/25 gram/118 mL enema (Fleet Enema) triamcinolone acetonide 0.1 % 1 applic topical BID PRN SKIN 01/07/25 01/07/25 topical cream IRRITATIONS Previous Rx's Medication Instructions Recorded amiodarone 100 mg tablet 100 mg PO DAILY #90 tabs 06/03/24 primidone 50 mg tablet 250 mg (5 x 50 mg) PO BID #900 tabs 09/06/24 clonazepam 0.5 mg tablet 0.25 mg (1/2 x 0.5 mg) PO BID PRN 11/01/24 anxiety #30 tabs Results & Data (ED) Vital Signs Vital Signs - 24 hr 01/07/25 20:35 01/07/25 20:42 01/07/25 20:44 Temperature 36.8 C Temperature Source Temporal Artery Scan Pulse Rate 63 56 L Pulse Rate [Apical] Pulse Rate from SpO2 Sensor Pulse Rhythm [Apical] Pulse Strength [Apical] Respiratory Rate 18 Respiratory Effort / Characteristics Non-Labored Spontaneous Respiratory Depth Normal Respiratory Pattern Regular Blood Pressure 77/42 L Blood Pressure [Right Arm] Blood Pressure Mean 53 Blood Pressure Mean [Right Arm] Blood Pressure Position [Right Arm] Pulse Oximetry 96 95 Oxygen Delivery Method Room Air Room Air Sepsis Recent Fever Within 48 Hours No Sepsis New/Unexplained Change in Mental Status N/A Sepsis Action Taken by Nursing No Action Required 01/07/25 20:45 01/07/25 21:51 01/07/25 23:00 Temperature Temperature Source Pulse Rate 64 Pulse Rate [Apical] 53 L 56 L Pulse Rate from SpO2 Sensor 64 Pulse Rhythm [Apical] Regular Regular Pulse Strength [Apical] Normal Normal Respiratory Rate 17 20 17 Respiratory Effort / Characteristics Non-Labored Spontaneous Non-Labored Respiratory Depth Normal Normal Respiratory Pattern Regular Regular Blood Pressure 121/57 L Blood Pressure [Right Arm] 93/48 L 95/39 L Blood Pressure Mean 78 Blood Pressure Mean [Right Arm] 63 57 Blood Pressure Position [Right Arm] Lying Sitting Pulse Oximetry 96 96 93 Oxygen Delivery Method Room Air Room Air Sepsis Recent Fever Within 48 Hours Sepsis New/Unexplained Change in Mental Status Sepsis Action Taken by Nursing 01/08/25 01:00 01/08/25 01:00 01/08/25 03:00 Temperature Temperature Source Pulse Rate 52 L Pulse Rate [Apical] 47 L 53 L Pulse Rate from SpO2 Sensor Pulse Rhythm [Apical] Regular Regular Pulse Strength [Apical] Normal Normal Respiratory Rate 18 18 Respiratory Effort / Characteristics Non-Labored Non-Labored Respiratory Depth Normal Normal Respiratory Pattern Regular Regular Blood Pressure Blood Pressure [Right Arm] 112/49 L 105/47 L Blood Pressure Mean Blood Pressure Mean [Right Arm] 70 66 Blood Pressure Position [Right Arm] Sitting Lying Pulse Oximetry 94 94 Oxygen Delivery Method Room Air Room Air Sepsis Recent Fever Within 48 Hours Sepsis New/Unexplained Change in Mental Status Sepsis Action Taken by Nursing Laboratory Data 01/08/25 06:10 01/08/25 06:10 Lab Results 01/07/25 01/07/25 01/07/25 Range/Units 21:34 21:36 21:43 WBC 8.17 (4.8-10.8) K/ul RBC 3.90 L (4.20-5.40) M/uL Hgb 11.4 L (12.0-16.0) g/dl POC Hgb 11.9 L (12.0-16.0) g/dl Hct 35.3 L (37.0-47.0) % POC Hct 35 L (37-47) % MCV 90.5 (80.0-100.0) fL MCH 29.2 (25.0-34.0) pg MCHC 32.3 (32.0-36.0) g/dL RDW Std Deviation 43.5 (36.4-46.3) fL RDW Coeff of Harish 13.2 (11.5-14.5) % Plt Count 469 H (130-400) K/uL MPV 9.6 (9.4-12.4) fL Immature Gran % (Auto) 0.5 % Neut % (Auto) 55.2 % Lymph % (Auto) 24.4 % Starr % (Auto) 9.9 % Eos % (Auto) 9.3 % Baso % (Auto) 0.7 % Neut # (Auto) 4.51 (1.40-6.50) K/uL Lymph # (Auto) 1.99 (1.20-3.40) K/uL Starr # (Auto) 0.81 H (0.11-0.59) K/uL Eos # (Auto) 0.76 H (0.00-0.50) K/uL Baso # (Auto) 0.06 (0.00-0.20) K/uL Immature Gran # (Auto) 0.04 (0.01-0.20) K/uL PT 10.3 (9.0-12.0) Seconds INR 0.9 (0.9-1.1) APTT 29 (21-31) Seconds PTT Ratio 1.1 POC Sodium 136 (135-144) mmol/L Sodium 137 (136-145) mmol/L POC Potassium 3.8 (3.3-5.0) mmol/L Potassium 3.9 (3.5-5.1) mmol/L POC Chloride 100 L (101-112) mmol/L Chloride 101 (98-107) mmol/L Carbon Dioxide 28 (21-32) mmol/L POC Total CO2 26 (24-31) mmol/L Anion Gap 8 (3-11) POC Anion Gap 15.0 L (16-25) mmol/L POC BUN 12 (7-18) mg/dl BUN 13 (6-23) mg/dl Creatinine 0.66 (0.6-1.2) mg/dl POC Creatinine 0.8 (0.6-1.3) mg/dl Est Cr Clr Drug Dosing 46.5 ml/min eGFR 92.57 BUN/Creatinine Ratio 19.7 (10-20) Glucose 94 (70-99(Fasting)) mg/dl POC Glucose (other) 94 (70-99) mg/dl Calcium 9.4 (8.6-10.3) mg/dl POC Ioniz Calcium Qamar 1.20 (1.12-1.32) mmol/l Magnesium 1.6 L (1.7-2.4) mg/dl Total Bilirubin 0.2 (0.2-1.0) mg/dl AST 33 (13-39) U/L ALT 56 H (7-52) U/L Alkaline Phosphatase 116 H (34-104) U/L Troponin I High Sens 7.6 (0-14) pg/ml Total Protein 6.8 (6.0-8.3) gm/dl Albumin 3.1 L (3.4-5.0) gm/dl Globulin 3.7 (2.5-4.0) gm/dl Albumin/Globulin Ratio 0.8 L (0.9-2) Lipase 19 (11-82) U/L TSH 6.568 H (0.300-4.500) uIu/ml Free T3 3.00 (2.3-4.2) pg/ml Urine Color Urine Appearance (Clear) Urine pH (4.5-7.5) Ur Specific [place] (1.000-1.030) Urine Protein (Negative) Urine Glucose (UA) (Negative) Urine Ketones (Negative) Urine Blood (Negative) Urine Nitrite (Negative) Urine Bilirubin (Negative) Urine Urobilinogen (Negative) Ur Leukocyte Esterase (Negative) Urine WBC (Auto) (0-5) /hpf Urine RBC (Auto) (0-2) /hpf U Hyaline Cast (Auto) (0-2) /lpf U Epithel Cells (Auto) (0-2) /hpf Urine Bacteria (Auto) (None Seen) Urine Comment Stl C. cayetanensis PCR (NotDetected) Stool Rotavirus A PCR (NotDetected) Stl Adenov F 40/41 PCR (NotDetected) Stool Astrovirus (PCR) (NotDetected) Stool Campylobacter PCR (NotDetected) Stl C. diff Tox B Gene (Neg) Stl C. diff 027-NAP1-BI Stool Cryptosporidium PCR (NotDetected) Stl E.coli Shiga Tox PCR (NotDetected) Stl Enterotoxigenic E PCR (NotDetected) Stool EPEC (PCR) (NotDetected) Stool EAEC (PCR) (NotDetected) Stl E. histolytica PCR (NotDetected) Stool Giardia Lamblia PCR (NotDetected) Stool Salmonella PCR (NotDetected) Stool Sapovirus (PCR) (NotDetected) Stl P. shigelloides PCR (NotDetected) Stl Shigella/EIEC PCR (NotDetected) St Y.enterocolitica PCR (NotDetected) Stool Vibrio (PCR) (NotDetected) Stl Vibrio cholerae PCR (NotDetected) Stl Norovirus GI/GII PCR (NotDetected) Blood Type O Positive Antibody Screen NEGATIVE 01/07/25 Range/Units 22:52 WBC (4.8-10.8) K/ul RBC (4.20-5.40) M/uL Hgb (12.0-16.0) g/dl POC Hgb (12.0-16.0) g/dl Hct (37.0-47.0) % POC Hct (37-47) % MCV (80.0-100.0) fL MCH (25.0-34.0) pg MCHC (32.0-36.0) g/dL RDW Std Deviation (36.4-46.3) fL RDW Coeff of Harish (11.5-14.5) % Plt Count (130-400) K/uL MPV (9.4-12.4) fL Immature Gran % (Auto) % Neut % (Auto) % Lymph % (Auto) % Starr % (Auto) % Eos % (Auto) % Baso % (Auto) % Neut # (Auto) (1.40-6.50) K/uL Lymph # (Auto) (1.20-3.40) K/uL Starr # (Auto) (0.11-0.59) K/uL Eos # (Auto) (0.00-0.50) K/uL Baso # (Auto) (0.00-0.20) K/uL Immature Gran # (Auto) (0.01-0.20) K/uL PT (9.0-12.0) Seconds INR (0.9-1.1) APTT (21-31) Seconds PTT Ratio POC Sodium (135-144) mmol/L Sodium (136-145) mmol/L POC Potassium (3.3-5.0) mmol/L Potassium (3.5-5.1) mmol/L POC Chloride (101-112) mmol/L Chloride (98-107) mmol/L Carbon Dioxide (21-32) mmol/L POC Total CO2 (24-31) mmol/L Anion Gap (3-11) POC Anion Gap (16-25) mmol/L POC BUN (7-18) mg/dl BUN (6-23) mg/dl Creatinine (0.6-1.2) mg/dl POC Creatinine (0.6-1.3) mg/dl Est Cr Clr Drug Dosing ml/min eGFR BUN/Creatinine Ratio (10-20) Glucose (70-99(Fasting)) mg/dl POC Glucose (other) (70-99) mg/dl Calcium (8.6-10.3) mg/dl POC Ioniz Calcium Qamar (1.12-1.32) mmol/l Magnesium (1.7-2.4) mg/dl Total Bilirubin (0.2-1.0) mg/dl AST (13-39) U/L ALT (7-52) U/L Alkaline Phosphatase (34-104) U/L Troponin I High Sens (0-14) pg/ml Total Protein (6.0-8.3) gm/dl Albumin (3.4-5.0) gm/dl Globulin (2.5-4.0) gm/dl Albumin/Globulin Ratio (0.9-2) Lipase (11-82) U/L TSH (0.300-4.500) uIu/ml Free T3 (2.3-4.2) pg/ml Urine Color Yellow Urine Appearance Clear (Clear) Urine pH 6.0 (4.5-7.5) Ur Specific [place] 1.016 (1.000-1.030) Urine Protein Trace H (Negative) Urine Glucose (UA) Negative (Negative) Urine Ketones Negative (Negative) Urine Blood Trace H (Negative) Urine Nitrite Negative (Negative) Urine Bilirubin Negative (Negative) Urine Urobilinogen Negative (Negative) Ur Leukocyte Esterase 1+ H (Negative) Urine WBC (Auto) 0-5 (0-5) /hpf Urine RBC (Auto) 3-5 H (0-2) /hpf U Hyaline Cast (Auto) 0-2 (0-2) /lpf U Epithel Cells (Auto) 0-2 (0-2) /hpf Urine Bacteria (Auto) 1+ H (None Seen) Urine Comment Stl C. cayetanensis PCR Not Detected (NotDetected) Stool Rotavirus A PCR Not Detected (NotDetected) Stl Adenov F 40/41 PCR Not Detected (NotDetected) Stool Astrovirus (PCR) Not Detected (NotDetected) Stool Campylobacter PCR Not Detected (NotDetected) Stl C. diff Tox B Gene Negative Cdiff Gene (Neg) Stl C. diff 027-NAP1-BI NEGATIVE Stool Cryptosporidium PCR Not Detected (NotDetected) Stl E.coli Shiga Tox PCR Not Detected (NotDetected) Stl Enterotoxigenic E PCR Not Detected (NotDetected) Stool EPEC (PCR) Not Detected (NotDetected) Stool EAEC (PCR) Not Detected (NotDetected) Stl E. histolytica PCR Not Detected (NotDetected) Stool Giardia Lamblia PCR Not Detected (NotDetected) Stool Salmonella PCR Not Detected (NotDetected) Stool Sapovirus (PCR) Not Detected (NotDetected) Stl P. shigelloides PCR Not Detected (NotDetected) Stl Shigella/EIEC PCR Not Detected (NotDetected) St Y.enterocolitica PCR Not Detected (NotDetected) Stool Vibrio (PCR) Not Detected (NotDetected) Stl Vibrio cholerae PCR Not Detected (NotDetected) Stl Norovirus GI/GII PCR Not Detected (NotDetected) Blood Type Antibody Screen Administered Medications Amiodarone HCl (Amiodarone 200 Mg Tab) 100 mg PO DAILY PRASHANT Stop: 02/07/25 08:59 Last Admin: 01/08/25 08:02 Dose: 100 mg Documented By: Bupropion HCl (Bupropion Xl 150 Mg Tabcr) 150 mg PO QAM PRASHANT Stop: 02/07/25 08:59 Last Admin: 01/08/25 08:04 Dose: 150 mg Documented By: RENETTA Clonazepam (Clonazepam 0.5 Mg Tab) 0.25 mg PO BID PRN PRN Reason: anxiety Stop: 02/07/25 05:20 Last Admin: 01/08/25 14:01 Dose: 0.25 mg Documented By: TRAVIS Escitalopram Oxalate (Escitalopram Oxalate 20 Mg Tab) 20 mg PO QAM PRASHANT Stop: 02/07/25 08:59 Last Admin: 01/08/25 08:03 Dose: 20 mg Documented By: RENETTA Fidaxomicin (Fidaxomicin 200 Mg Tab) 200 mg PO BID [facility] Stop: 01/18/25 08:59 Last Admin: 01/08/25 08:03 Dose: 200 mg Documented By: RENETTA Gabapentin (Gabapentin 100 Mg Cap) 200 mg PO TID PRASHANT Stop: 02/07/25 08:59 Last Admin: 01/08/25 14:03 Dose: 200 mg Documented By: Admin: 01/08/25 08:03 Dose: 200 mg Documented By: RENETTA Hydromorphone HCl (Hydromorphone Inj 1 Mg/Ml Syringe) 1 mg IV Q4H PRN PRN Reason: Pain Stop: 01/22/25 08:18 Last Admin: 01/08/25 14:02 Dose: 1 mg Documented By: Admin: 01/08/25 08:35 Dose: 1 mg Documented By: RENETTA Sodium Chloride (Nss) 1,000 mls @ 80 mls/hr IV .[id number] PRASHANT Stop: 01/10/25 21:59 Last Admin: 01/08/25 16:14 Dose: 80 mls/hr Documented By: Infusion: 01/08/25 16:01 Dose: Infused Documented By: Infusion: 01/08/25 13:49 Dose: 80 mls/hr Documented By: Admin: 01/08/25 06:08 Dose: 125 mls/hr Documented By: Infusion: 01/08/25 06:08 Dose: Infused Documented By: Admin: 01/07/25 23:13 Dose: 125 mls/hr Documented By: MAISHA Methylprednisolone 40 mg/ (Syringe) 0.64 mls @ 1.5 mls/min IV Q8H [facility] Stop: 02/07/25 07:59 Last Admin: 01/08/25 16:14 Dose: 1.5 mls/min Documented By: Admin: 01/08/25 08:34 Dose: 1.5 mls/min Documented By: RENETTA Levothyroxine Sodium (Levothyroxine Sodium 75 Mcg Tablet) 75 mcg PO DAILYBB [facility] Stop: 02/07/25 06:29 Last Admin: 01/08/25 06:07 Dose: 75 mcg Documented By: VALERIE Metoprolol Succinate (Metoprolol Succ 25mg Ext Rel Tab) [facility] [place] Stop: 02/07/25 08:59 Last Admin: 01/08/25 08:09 Dose: Not Given Documented By: RENETTA Miscellaneous (Remove Nicoderm Patch) 1 each N/A DAILY@0859 [facility] Stop: 02/07/25 08:58 Last Admin: 01/08/25 08:05 Dose: Not Given Documented By: RENETTA Nicotine (Nicotine 14 Mg/24 Hr Patch) 1 patch TD [facility] Stop: 02/07/25 08:59 Last Admin: 01/08/25 08:04 Dose: Not Given Documented By: RENETTA Pantoprazole Sodium (Pantoprazole 40 Mg Tab) 40 mg PO BID [facility] Stop: 02/07/25 08:59 Last Admin: 01/08/25 08:03 Dose: 40 mg Documented By: RENETTA Primidone (Primidone 250 Mg Tab) 250 mg PO BID PRASHANT Stop: 02/07/25 08:59 Last Admin: 01/08/25 08:03 Dose: 250 mg Documented By: RENETTA Discontinued Medications Dicyclomine HCl (Dicyclomine Hcl 10 Mg Cap) 10 mg PO NOW ONE Stop: 01/07/25 23:48 Last Admin: 01/08/25 00:14 Dose: 10 mg Documented By: MAISHA Fidaxomicin (Fidaxomicin 200 Mg Tab) Confirm Administered Dose 200 mg PO .STK- MED ONE Stop: 01/08/25 07:20 Last Admin: 01/08/25 07:22 Dose: Not Given Documented By: RENETTA Sodium Chloride (Nss) 1,000 mls @ 999 mls/hr IV .Q1H1M ONE Stop: 01/07/25 22:04 Last Infusion: 01/07/25 22:56 Dose: Infused Documented By: Admin: 01/07/25 21:43 Dose: 999 mls/hr Documented By: BASHIR Acetaminophen (Ofirmev) 1,000 mg in 100 mls @ 400 mls/hr IV NOW STA Stop: 01/07/25 21:18 Last Infusion: 01/07/25 22:56 Dose: Infused Documented By: Admin: 01/07/25 21:43 Dose: 400 mls/hr Documented By: BASHIR Pantoprazole Sodium (Protonix) 40 mg in 10 mls @ 5 mls/min IV NOW ONE Stop: 01/07/25 21:06 Last Admin: 01/07/25 21:43 Dose: 5 mls/min Documented By: BASHIR Magnesium Sulfate/Dextrose (Magnesium Sulfate / D5w) 1 gm in 100 mls @ 100 mls/hr IV NOW STA Stop: 01/08/25 06:27 Last Infusion: 01/08/25 07:09 Dose: Infused Documented By: Admin: 01/08/25 06:07 Dose: 100 mls/hr Documented By: VALERIE Iron Sucrose 200 mg/ Sodium (Chloride) 110 mls @ 220 mls/hr IV TODAY ONE Stop: 01/08/25 13:44 Last Infusion: 01/08/25 16:03 Dose: Infused Documented By: Admin: 01/08/25 14:12 Dose: 220 mls/hr Documented By: TRAVIS Nicotine (Nicotine 14 Mg/24 Hr Patch) Confirm Administered Dose 1 patch TD .STK- MED ONE Stop: 01/08/25 07:16 Last Admin: 01/08/25 07:22 Dose: Not Given Documented By: RENETTA Imaging Data Radiologist's Impression: Abdomen/Pelvis CT 01/07/25 22:26 Exam(s): CT ABDOMEN + PELVIS With Contrast IV Amt: OPTIRAY 320 93ML EXAM: CT Abdomen and Pelvis With Intravenous Contrast CLINICAL HISTORY: Reason for exam: abd pain, GI bleed, recent cdiff, hx crohns. TECHNIQUE: Axial computed tomography images of the abdomen and pelvis with intravenous contrast. CTDI is 6.14 mGy and DLP is 225.73 mGy-cm. Automated exposure control was utilized for the study. A dose lowering technique was utilized adhering to the principles of ALARA. CONTRAST: Patient received OPTIRAY 320 93ML of IV contrast COMPARISON: 12/16/2024 FINDINGS: There is a fat containing Bochdalek hernia at the left lung base. Lung bases are otherwise unremarkable. There is stable hepatomegaly. Portal vein is patent. Gallbladder is partially contracted. There is no biliary dilatation. Spleen and pancreas are unremarkable. Adrenal glands appear normal. Kidneys enhance symmetrically. There is no hydronephrosis. There is heavy atherosclerotic calcification of the abdominal aorta without aneurysm or dissection. No adenopathy is seen. There is no free air or significant free fluid. There are postoperative changes of the bowel, probably subtotal colectomy and ileocolic anastomosis of the pelvis. This should be correlated with operative history. Anastomotic staple line is seen in the right upper quadrant and in the pelvis. There is wall thickening and adjacent fat stranding surrounding the rectum. There is no evidence of mechanical bowel obstruction. Uterus is absent. Urinary bladder wall appears thickened. There is a chronic L1 compression fracture. Bones are demineralized. There are no acute osseous findings. IMPRESSION: 1. Postoperative bowel changes, probably subtotal colectomy with ileocolic anastomosis in the pelvis. This should be correlated with operative history. 2. Inflammatory appearance of the rectum with adjacent fat stranding concerning for proctitis/proctocolitis. This could be infectious or related to patient's history of Crohn's disease. 3. Bladder wall thickening which should be correlated with urinalysis to assess for cystitis. Electronically signed by: Kym London M.D. 01/07/25 23:58 PM Discharge Plan Visit Data Chief Complaint: GI Assessment Stated Complaint: ABOMINAL PAIN, LOOSE STOOLS, POS FOR CDIFF ED Provider: Nuria Cunningham Discharge Problem: GI (gastrointestinal bleed), Crohns disease, Abdominal pain, C. difficile colitis Patient Disposition: Admitted As Inpatient Condition: Fair Discharge Instructions Interventions: ED Discharge Assessment Last Done: 01/08/25 05:21
[2025-01-07 23:59] LABS: C. diff 027-NAP1-BI NEGATIVE; Cdiff Toxin B Gene (2yr or >) Negative Cdiff Gene (Neg)
[2025-01-08 00:31] LABS: Adenovirus F 40/41 PCR Not Detected (NotDetected); Astrovirus PCR Not Detected (NotDetected); Campylobacter PCR Not Detected (NotDetected); Cryptosporidium PCR Not Detected (NotDetected); Cyclospora cayetanensis PCR Not Detected (NotDetected); Entamoeba histolytica PCR Not Detected (NotDetected); Enteroaggregative E.coli(EAEC) Not Detected (NotDetected); Enteropathogenic E.coli (EPEC) Not Detected (NotDetected); Enterotoxigenic E.coli (ETEC) Not Detected (NotDetected); Giardia lamblia PCR Not Detected (NotDetected); Norovirus GI/GII PCR Not Detected (NotDetected); Plesiomonas shigelloides PCR Not Detected (NotDetected); Rotavirus A PCR Not Detected (NotDetected); Salmonella PCR Not Detected (NotDetected); Sapovirus PCR Not Detected (NotDetected); Shiga-like Toxin E.coli (STEC) Not Detected (NotDetected); Shigella/Enteroinvasive E.coli Not Detected (NotDetected); Vibrio cholerae PCR Not Detected (NotDetected); Vibrio species PCR Not Detected (NotDetected); Yersinia enterocolitica PCR Not Detected (NotDetected)
--- NOTE | 2025-01-08 02:54 | History & Physical Report ---
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 Records from the admissions process on 12/26 at [facility] allude to concern for small bowel obstruction but this was later ruled out. She underwent stool studies and tested positive for c diff. By the patient's report she was on oral vancomycin as well as vancomycin enemas twice daily. Despite such her abdominal discomforts, diarrhea, rectal pain, etc continued and she was later switched to Dificid. Her diarrhea did improve to about 4-6 liquid stools/day. Previously was having 15+ stools/day over the last month. On 12/28/24 she under went flex sig by [facility]. This showed severe rectal inflammation. Biopsies were taken; I do not have those results. She was told, however, that her Crohn's was "active." Records further show that her sed rate was 60 and CRP was 7.2 on 12/26/24. She was d/c to home with instructions to continue her course of Dificid early in the afternoon on 01/07/25. Upon returning home she had a bowel movement that was mainly copious amounts of dark blood; very little stool came out. Since arrival to [facility] she has had no further bleeding. #bleeding per rectum - -I don't have any CBC information from [facility], but her hemoglobin at [facility] on 12/16 was 13.7; today it is 11.4 -will repeat her CBC about 6 hours after the admission counts to ensure stability -keep NPO for now, but if no further bleeding overnight hopefully can resume some form of diet in the am -the known proctitis, whether is is from residual c diff infection vs Crohn's proctitis, is the likely cause for the blood she saw; I would have expected rectal bleeding to be bright red; however, she was consistent in stating it was "dark" -perhaps there is another source of bleeding higher up in the small bowel -CT a/p today shows proctitis but no other bowel pathology -hold aspirin -hold any chemical DVT proph -IV fluids -will consult Dr Berg from [facility] in the am -will attempt to get the recent rectal biopsies from [facility] -if Crohn's is indeed active - solumedrol? defer that decision to GI -recheck sed rate and crp with next blood draw #rectal pain - -2nd to proctitis -despite aggressive Rx of c diff infection she continues with rectal pain & radiographic proctitis -is ongoing pain due to Crohn's proctitis? -see above under "bleeding per rectum" #recent c diff infection - -contact precautions -cont Dificid 200mg BID; I am uncertain what day of her course she is in; will need the dc summary from [facility] #Crohn's disease - -follows with [facility] in [place] -on Entyvio infusions q8 weeks -med list also included Budesonide 9mg/day; pharmacy records show she was prescribed such in November and was supposed to take for 1 month -will place on hold and ask GI their opinion about continuing this steroid or stopping -?active Crohn's disease causing proctitis? -see discussions above -GI consult requested #severe protein calorie malnutrition - 10# weight loss in an already underweight individual - -both c diff infection & Crohn's are the likely culprits -see discussion above -consider boost, MVI, etc #hypotension - -had such upon ER presentation today, quickly resolving with IV fluids -HOLD amlodipine -HOLD meto succ #CAD - -no ischemic symptoms at this time -HOLD statin as LFTs are mildly elevated -HOLD aspirin due to blood in stool -HOLD meto succ due to low BPs #hypothyroidism - -previous TSH earlier this year was elevated -will repeat TSH in am -cont synthroid #mood disorder - -cont wellbutrin XL 150mg daily -cont clonazepam prn -cont lexapro 20mg daily #symptomatic PVCs - -follows with Dr Hannah, [facility] -cont amiodarone #tobacco dependence - -nicoderm patch 14mg/day #DVT proph - -SCDs for now depending on length of this stay may need PT/OT History of Present Illness Chief Complaint: bright red bleeding per rectum Primary Care Provider: DO Xocihlt Marquez 74yo female with history of CAD s/p CABG, Crohn's disease, COPD, hypothyroidism, ongoing tobacco dependence, HTN, hyperlipidemia, underweight, prior total colectomy with ileostomy creation, ileostomy reversal with ileal- rectal anastomosis, and recent hospital admission to [facility] from 12/26 to 01/07. Records from the admissions process on 12/26 at [facility] allude to concern for small bowel obstruction but this was later ruled out. She underwent stool studies and tested positive for c diff. By the patient's report she was on oral vancomycin as well as vancomycin enemas twice daily. Despite such her abdominal discomforts, diarrhea, rectal pain, etc continued and she was later switched to Dificid. Her diarrhea did improve to about 4-6 liquid stools/day. Previously was having 15+ stools/day over the last month. On 12/28/24 she underwent flex sig by [facility]. This showed severe rectal inflammation. Biopsies were taken; I do not have those results. She was told, however, that her Crohn's was "active." Records further show that her sed rate was 60 and CRP was 7.2 on 12/26/24. She was d/c to home with instructions to continue her course of Dificid early in the afternoon on 01/07/25. Upon returning home she took a 2-hour nap, then upon awakening had to move her bowels. She reports there was little to no stool but copious amounts of "dark blood" in the toilet bowl. No bright red blood. She states that during the entire hospitalization at [facility] she did not have any blood per rectum (although the admission H/P states she had been having some blood at home prior to the [facility] admission). Since coming to [facility] she has had no further blood per rectum. Her main complaint other than the concern for the blood is that of rectal pain. This has not improved despite aggressive treatment of cdiff. She also continues with abdominal discomfort. No vomiting. Allergies Allergy/AdvReac Type Severity Reaction Status Date / Time No Known Allergies Allergy Verified 01/07/25 22:00 Home Medications Medication Instructions Recorded Confirmed Type acetaminophen 500 mg tablet 1,000 mg PO Q8H PRN Pain 04/19/22 01/07/25 History (Tylenol Extra Strength) amiodarone 100 mg tablet 100 mg PO DAILY #90 tabs 06/03/24 01/07/25 Rx primidone 50 mg tablet 250 mg (5 x 50 mg) PO BID #900 tabs 09/06/24 01/07/25 Rx clonazepam 0.5 mg tablet 0.25 mg (1/2 x 0.5 mg) PO BID PRN 11/01/24 01/07/25 Rx anxiety #30 tabs dicyclomine 10 mg capsule 10 mg PO TID PRN abdominal cramping 12/16/24 01/07/25 History escitalopram oxalate 20 mg tablet 20 mg PO QAM 12/16/24 01/07/25 History (Lexapro) metoprolol succinate 25 mg 50 mg PO HS 12/16/24 01/07/25 History tablet,extended release 24 hr mirtazapine 15 mg tablet 15 mg PO HS 12/16/24 01/07/25 History nitroglycerin 0.4 mg sublingual 0.4 mg sublingual UD PRN Chest Pain 12/16/24 01/07/25 History tablet omeprazole 40 mg capsule,delayed 40 mg PO BID 12/16/24 01/07/25 History release rosuvastatin 40 mg tablet 40 mg PO DAILY 12/16/24 01/07/25 History vedolizumab 300 mg intravenous 300 mg IV .Q8WKS 12/16/24 01/07/25 History solution (Entyvio) amlodipine 5 mg tablet 5 mg PO DAILY 01/07/25 01/07/25 History aspirin 81 mg tablet,delayed 81 mg PO DAILY 01/07/25 01/07/25 History release budesonide 9 mg tablet,delayed and 9 mg PO QAM 01/07/25 01/07/25 History extended release bupropion HCl 150 mg 24 hr tablet, 150 mg PO QAM 01/07/25 01/07/25 History extended release (Wellbutrin XL) diazepam 5 mg-7.5 mg-10 mg rectal 5 mg VT TID PRN RECTAL PAIN/SPASMS 01/07/25 01/07/25 History kit famotidine 20 mg tablet 20 mg PO BID PRN Heartburn 01/07/25 01/07/25 History fidaxomicin 200 mg tablet 200 mg PO Q12H 01/07/25 01/07/25 History gabapentin 100 mg capsule 200 mg PO TID 01/07/25 01/07/25 History hydrocortisone acetate 25 mg 25 mg VT BID PRN Hemorrhoids 01/07/25 01/07/25 History rectal suppository levothyroxine 50 mcg tablet 50 mcg PO DAILYBB 01/07/25 01/07/25 History ondansetron 4 mg disintegrating 4 mg PO TID PRN NAUSEA/VOMITING 01/07/25 01/07/25 History tablet oxycodone 5 mg tablet 5 mg PO TID PRN Pain (Scale Score 01/07/25 01/07/25 History 4-6) sodium phosphates 19 gram-7 118 ml VT DAILY PRN Constipation 01/07/25 01/07/25 History gram/118 mL enema (Fleet Enema) triamcinolone acetonide 0.1 % 1 applic topical BID PRN SKIN 01/07/25 01/07/25 History topical cream IRRITATIONS Past Med/Surg History Problem List (Updated 01/08/25 @ 03:39 by Andres Acevedo MD) Severe protein-calorie malnutrition Proctitis Clostridioides difficile infection Bleeding per rectum C. difficile colitis (Acute) Abdominal pain (Acute) GI (gastrointestinal bleed) (Acute) Difficulty sleeping Symptomatic PVCs Hypothyroidism due to amiodarone Chronic sinus infection Insomnia Frail elderly COPD (chronic obstructive pulmonary disease) Underweight Paronychia of left middle finger Palpitation Essential tremor Generalized anxiety disorder Hypercholesterolemia (Chronic) CAD (coronary artery disease) 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, [facility]: Rojas to LAD, SARIKA to RCA, saphenous vein graft to ramus intermedius, saphenous vein graft to om 2 Crohns disease (Chronic) HTN (hypertension) Hyperlipidemia CAD (coronary artery disease) Depression Crohn's colitis Fatigue Elevated LFTs Serum calcium elevated Right hip pain Elevated TSH Osteoporosis Medical History (Updated 01/08/25 @ 03:39 by Andres Acevedo MD) Hx SBO Night sweats Positive culture findings in sputum Fever Dog bite, hand Chronic pain of both shoulders Joint ache Anxiety Acute hyponatremia Elevated C-reactive protein Elevated erythrocyte sedimentation rate Intractable abdominal pain Acute electrocardiogram changes Substernal chest pain Acute blood loss anemia Nausea Abdominal pain Non-healing open wound of toe Failure of rotator cuff repair Tobacco abuse Hypokalemia Left shoulder pain Diarrhea Surgical History (Updated 01/08/25 @ 03:31 by Andres Acevedo MD) History of reversal of ileostomy H/O total colectomy H/O ileostomy History of coronary artery bypass graft Family History (Updated 01/08/25 @ 03:31 by Andres Acevedo MD) Sister Breast cancer Colorectal cancer Crohn's disease Mother Colorectal cancer Anxiety Myocardial infarction Father Myocardial infarction Daughter Ulcerative colitis Other Cancer Heart disease Hypertension Denies family history of Ovarian cancer Social History (Updated 01/08/25 @ 03:33 by Andres Acevedo MD) Smoking Status: Current every day smoker Tobacco Type: Cigarettes Age Started Using Tobacco: 16; packs per day: 0.5; Cigarettes Per Day: sometimes as much as 1 pack/day; Second Hand Exposure: No; Do You Dip or Chew Tobacco: No; Hx Alcohol Use: Yes Alcohol type: wine Hx Substance Use: No Preferred Language: Japanese Communication Ability: Effective Nuclear Physician Required: No Beliefs That Will Affect Care: None marital status: / Current Living Situation: Family Current Living Situation Comment: staying with daughter current occupational status: retired How many Children do You have: 2 How many Children do You have Comment: 1 son is Feels Safe at Home: Yes Childhood Exposure to Second-Hand Smoke: No Diet: regular caffeine: Yes Dental Care, Regularly: Yes Physical Activity Frequency: 3-4 Times per Week Seatbelt Use: always Sunscreen Use: Yes Assistive Devices: None Review of Systems Review of Systems: gen - 10 pounds weight loss last 1-2 months; no fevers; poor appetite eyes - no visual change HENT - no oral ulcers, no nasal congestion CV - no chest pain pulm - no cough or dyspnea GI - no nausea/vomiting; BRBPR today; rectal pain; mild abdominal discomfort/pain - no dysuria musculo - ongoing back pain; no joint pains skin - no generalized rash endo - no diabetes neuro - no headache Physical Exam Physical Exam: gen - very thin, cachectic, NAD; pleasant; awake/alert eyes - PERRL HENT - MMM, no thrush or oral ulcers neck - no JVD, no lymph nodes heart - RRR, s1 s2 lungs - CTA b/l abd - multiple surgical scars on abd wall; NT; ND; soft; BS+; rectal - deferred ext - no edema, pulses 2+ b/l musculo - no joint effusions neuro - strength 5/5 x 4 exts; DTRs 2+ b/l upper & lower ext skin - no generalized rash Results & Data Results & Data Vital Signs (Past 12 Hours) Vital Signs Temp Pulse Pulse Resp BP BP Pulse Ox 01/08/25 01:00 47 L 18 112/49 L 94 01/08/25 01:00 52 L 01/07/25 23:00 56 L 17 95/39 L 93 01/07/25 21:51 53 L 20 93/48 L 96 01/07/25 20:45 64 17 121/57 L 96 01/07/25 20:44 95 01/07/25 20:42 56 L 01/07/25 20:35 36.8 C 63 18 77/42 L 96 O2 Del Method 01/08/25 01:00 Room Air 01/08/25 01:00 01/07/25 23:00 Room Air 01/07/25 21:51 Room Air 01/07/25 20:45 01/07/25 20:44 Room Air 01/07/25 20:42 01/07/25 20:35 Room Air Laboratory Results Laboratory Results - last 24 hr 01/07/25 01/07/25 01/07/25 21:34 21:43 22:52 WBC 8.17 RBC 3.90 L Hgb 11.4 L POC Hgb 11.9 L Hct 35.3 L POC Hct 35 L MCV 90.5 MCH 29.2 MCHC 32.3 RDW Std Deviation 43.5 RDW Coeff of Harish 13.2 Plt Count 469 H MPV 9.6 Immature Gran % (Auto) 0.5 Neut % (Auto) 55.2 Lymph % (Auto) 24.4 [place] % (Auto) 9.9 Eos % (Auto) 9.3 Baso % (Auto) 0.7 Neut # (Auto) 4.51 Lymph # (Auto) 1.99 [place] # (Auto) 0.81 H Eos # (Auto) 0.76 H Baso # (Auto) 0.06 Immature Gran # (Auto) 0.04 PT 10.3 INR 0.9 APTT 29 PTT Ratio 1.1 POC Sodium 136 Sodium 137 POC Potassium 3.8 Potassium 3.9 POC Chloride 100 L Chloride 101 Carbon Dioxide 28 POC Total CO2 26 Anion Gap 8 POC Anion Gap 15.0 L POC BUN 12 BUN 13 Creatinine 0.66 POC Creatinine 0.8 Est Cr Clr Drug Dosing 46.5 eGFR 92.57 BUN/Creatinine Ratio 19.7 Glucose 94 POC Glucose (other) 94 Calcium 9.4 POC Ioniz Calcium Qamar 1.20 Total Bilirubin 0.2 AST 33 ALT 56 H Alkaline Phosphatase 116 H Troponin I High Sens 7.6 Total Protein 6.8 Albumin 3.1 L Globulin 3.7 Albumin/Globulin Ratio 0.8 L Lipase 19 Urine Color Yellow Urine Appearance Clear Urine pH 6.0 Ur Specific Hurley 1.016 Urine Protein Trace H Urine Glucose (UA) Negative Urine Ketones Negative Urine Blood Trace H Urine Nitrite Negative Urine Bilirubin Negative Urine Urobilinogen Negative Ur Leukocyte Esterase 1+ H Urine WBC (Auto) 0-5 Urine RBC (Auto) 3-5 H U Hyaline Cast (Auto) 0-2 U Epithel Cells (Auto) 0-2 Urine Bacteria (Auto) 1+ H Urine Comment Stl C. cayetanensis PCR Not Detected Stool Rotavirus A PCR Not Detected Stl Adenov F 40/41 PCR Not Detected Stool Astrovirus (PCR) Not Detected Stool Campylobacter PCR Not Detected Stl C. diff Tox B Gene Negative Cdiff Gene Stl C. diff [id number] NEGATIVE Stool Cryptosporidium PCR Not Detected Stl E.coli Shiga Tox PCR Not Detected Stl Enterotoxigenic E PCR Not Detected Stool EPEC (PCR) Not Detected Stool EAEC (PCR) Not Detected Stl E. histolytica PCR Not Detected Stool Giardia Lamblia PCR Not Detected Stool Salmonella PCR Not Detected Stool Sapovirus (PCR) Not Detected Stl P. shigelloides PCR Not Detected Stl Shigella/EIEC PCR Not Detected St Y.enterocolitica PCR Not Detected Stool Vibrio (PCR) Not Detected Stl Vibrio cholerae PCR Not Detected Stl Norovirus GI/GII PCR Not Detected Blood Type O Positive Antibody Screen NEGATIVE Diagnostic Findings Abdomen/Pelvis CT 01/07/25 22:26 Exam(s): CT ABDOMEN + PELVIS With Contrast IV Amt: OPTIRAY 320 93ML EXAM: CT Abdomen and Pelvis With Intravenous Contrast CLINICAL HISTORY: Reason for exam: abd pain, GI bleed, recent cdiff, hx crohns. TECHNIQUE: Axial computed tomography images of the abdomen and pelvis with intravenous contrast. CTDI is 6.14 mGy and DLP is 225.73 mGy-cm. Automated exposure control was utilized for the study. A dose lowering technique was utilized adhering to the principles of ALARA. CONTRAST: Patient received OPTIRAY 320 93ML of IV contrast COMPARISON: 12/16/2024 FINDINGS: There is a fat containing Bochdalek hernia at the left lung base. Lung bases are otherwise unremarkable. There is stable hepatomegaly. Portal vein is patent. Gallbladder is partially contracted. There is no biliary dilatation. Spleen and pancreas are unremarkable. Adrenal glands appear normal. Kidneys enhance symmetrically. There is no hydronephrosis. There is heavy atherosclerotic calcification of the abdominal aorta without aneurysm or dissection. No adenopathy is seen. There is no free air or significant free fluid. There are postoperative changes of the bowel, probably subtotal colectomy and ileocolic anastomosis of the pelvis. This should be correlated with operative history. Anastomotic staple line is seen in the right upper quadrant and in the pelvis. There is wall thickening and adjacent fat stranding surrounding the rectum. There is no evidence of mechanical bowel obstruction. Uterus is absent. Urinary bladder wall appears thickened. There is a chronic L1 compression fracture. Bones are demineralized. There are no acute osseous findings. IMPRESSION: 1. Postoperative bowel changes, probably subtotal colectomy with ileocolic anastomosis in the pelvis. This should be correlated with operative history. 2. Inflammatory appearance of the rectum with adjacent fat stranding concerning for proctitis/proctocolitis. This could be infectious or related to patient's history of Crohn's disease. 3. Bladder wall thickening which should be correlated with urinalysis to assess for cystitis. Electronically signed by: Kym London M.D. 01/07/25 23:58 PM Code Status & VTE Plan Code Status full code PG Care Time/CCT Total # of Minutes Spent Total Time Spent with Patient: Total time spent is greater than 50% in coordination of care (as documented) at patient's floor/unit and/or counseling patient: Coding Level of Care Code 53702 INT INP/OBS CARE 3/75MIN Diagnoses Bleeding per rectum K62.5 Clostridioides difficile infection A49.8 Proctitis K62.89 Crohn's disease without complication, unspecified gastrointestinal tract location K50.90 Severe protein-calorie malnutrition E43 Elevated LFTs R79.89 Symptomatic PVCs I49.3 Hypothyroidism due to amiodarone T46.2X1A; E03.2 COPD (chronic obstructive pulmonary disease) J44.9 CAD (coronary artery disease) I25.10 Primary hypertension I10 Hypertension type: primary hypertension Hyperlipidemia, unspecified hyperlipidemia type E78.5 Hyperlipidemia type: unspecified (11) HTN (hypertension) Hypertension type: primary hypertension Qualified Code(s): I10 - Essential (primary) hypertension (12) Hyperlipidemia Hyperlipidemia type: unspecified Qualified Code(s): E78.5 - Hyperlipidemia, unspecified
[2025-01-08 04:24] LABS: Magnesium 1.6 mg/dl (1.7-2.4)
[2025-01-08 04:39] LABS: Thyroid Stimulating Hormone 6.568 uIu/ml (0.300-4.500)
[2025-01-08 06:43] LABS: Hematocrit (blood only) 31.5 % (37.0-47.0); Hemoglobin 10.5 g/dl (12.0-16.0); Mean Corpuscular Hemoglobin 30.1 pg (25.0-34.0); Mean Corpuscular Hgb Conc 33.3 g/dL (32.0-36.0); Mean Corpuscular Volume 90.3 fL (80.0-100.0); Mean Platelet Volume 9.6 fL (9.4-12.4); Platelet Count 431 K/uL (130-400); RDW Standard Deviation 43.3 fL (36.4-46.3); Red Blood Count 3.49 M/uL (4.20-5.40); White Blood Count 7.04 K/ul (4.8-10.8)
[2025-01-08 06:53] LABS: BUN Creatinine Ratio 17.2 (10-20); Calcium 8.8 mg/dl (8.6-10.3); Creatinine Clr Calc Pharmacy 52.9 ml/min; Potassium 3.8 mmol/L (3.5-5.1)
[2025-01-08 08:56] LABS: T4 Free Thyroxine 0.89 ng/dl (0.61-1.60)
--- NOTE | 2025-01-08 10:59 | Gastrointestinal Consultation ---
Date of Consultation January 08, 2025 Assessment & Plan (1) Proctitis: Pleasant woman with a history of Crohn's s/p total abdominal colectomy who was recently hospitalized for a c. diff infection at [facility]. She comes in with continued diarrhea and bleeding less than 24 hours after discharge and she says she never really got back to normal while in the hospital. In my opinion her flex sig report is more consistent with active Crohn's than it is consistent with c. diff. I do think getting the biopsy reports will help with our decision. I am leaning towards starting her on steroids but would prefer to wait until we get pathology from [facility]. History of Present Illness Reason for Consultation: Crohn's Attending Physician: Abundio Manzano MD History of Present Illness 74 year old female status post total proctocolectomy for Crohn's disease four years ago with reversal to an ileorectal anastomosis. She has been having lots of issues with rectal pain ever since. She was recently in the hospital at [facility] and treated for c. diff. Flexible sigmoidoscopy done at [facility] suggests active Crohn's to me by their description although the patient told her it was likely c. diff. Patient was discharged yesterday and went home, had a bloody bowel movement and then returned here. She continues to have diarrhea and has gone four times today. The last time she went to bathroom there was just a little blood on the tissue. She tells me that when she is feeling well she has her bowel movements controlled with metamucil. She does take entyvio for her Crohn's and has had to hold it because of her c. diff. Labs on this hospitalization are "negative" for c. diff gene and all other stool pathogens. Allergies Allergy/AdvReac Type Severity Reaction Status Date / Time No Known Allergies Allergy Verified 01/07/25 22:00 Home Medications Medication Instructions Recorded Confirmed Type acetaminophen 500 mg tablet 1,000 mg PO Q8H PRN Pain 04/19/22 01/07/25 History (Tylenol Extra Strength) amiodarone 100 mg tablet 100 mg PO DAILY #90 tabs 06/03/24 01/07/25 Rx primidone 50 mg tablet 250 mg (5 x 50 mg) PO BID #900 tabs 09/06/24 01/07/25 Rx clonazepam 0.5 mg tablet 0.25 mg (1/2 x 0.5 mg) PO BID PRN 11/01/24 01/07/25 Rx anxiety #30 tabs dicyclomine 10 mg capsule 10 mg PO TID PRN abdominal cramping 12/16/24 01/07/25 History escitalopram oxalate 20 mg tablet 20 mg PO QAM 12/16/24 01/07/25 History (Lexapro) metoprolol succinate 25 mg 50 mg PO HS 12/16/24 01/07/25 History tablet,extended release 24 hr mirtazapine 15 mg tablet 15 mg PO HS 12/16/24 01/07/25 History nitroglycerin 0.4 mg sublingual 0.4 mg sublingual UD PRN Chest Pain 12/16/24 01/07/25 History tablet omeprazole 40 mg capsule,delayed 40 mg PO BID 12/16/24 01/07/25 History release rosuvastatin 40 mg tablet 40 mg PO DAILY 12/16/24 01/07/25 History vedolizumab 300 mg intravenous 300 mg IV .[id number] 12/16/24 01/07/25 History solution (Entyvio) amlodipine 5 mg tablet 5 mg PO DAILY 01/07/25 01/07/25 History aspirin 81 mg tablet,delayed 81 mg PO DAILY 01/07/25 01/07/25 History release budesonide 9 mg tablet,delayed and 9 mg PO QAM 01/07/25 01/07/25 History extended release bupropion HCl 150 mg 24 hr tablet, 150 mg PO QAM 01/07/25 01/07/25 History extended release (Wellbutrin XL) diazepam 5 mg-7.5 mg-10 mg rectal 5 mg MN TID PRN RECTAL PAIN/SPASMS 01/07/25 01/07/25 History kit famotidine 20 mg tablet 20 mg PO BID PRN Heartburn 01/07/25 01/07/25 History fidaxomicin 200 mg tablet 200 mg PO Q12H 01/07/25 01/07/25 History gabapentin 100 mg capsule 200 mg PO TID 01/07/25 01/07/25 History hydrocortisone acetate 25 mg 25 mg MN BID PRN Hemorrhoids 01/07/25 01/07/25 History rectal suppository levothyroxine 50 mcg tablet 50 mcg PO DAILYBB 01/07/25 01/07/25 History ondansetron 4 mg disintegrating 4 mg PO TID PRN NAUSEA/VOMITING 01/07/25 01/07/25 History tablet oxycodone 5 mg tablet 5 mg PO TID PRN Pain (Scale Score 01/07/25 01/07/25 History 4-6) sodium phosphates 19 gram-7 118 ml MN DAILY PRN Constipation 01/07/25 01/07/25 History gram/118 mL enema (Fleet Enema) triamcinolone acetonide 0.1 % 1 applic topical BID PRN SKIN 01/07/25 01/07/25 History topical cream IRRITATIONS Patient History Medical History Hx SBO Night sweats Positive culture findings in sputum Fever Dog bite, hand Chronic pain of both shoulders Joint ache Anxiety Acute hyponatremia Elevated C-reactive protein Elevated erythrocyte sedimentation rate Intractable abdominal pain Acute electrocardiogram changes Substernal chest pain Acute blood loss anemia Nausea Abdominal pain Non-healing open wound of toe Failure of rotator cuff repair Tobacco abuse Hypokalemia Left shoulder pain Diarrhea Surgical History History of reversal of ileostomy H/O total colectomy H/O ileostomy History of coronary artery bypass graft Family History Sister Breast cancer Colorectal cancer Crohn's disease Mother Colorectal cancer Anxiety Myocardial infarction Father Myocardial infarction Daughter Ulcerative colitis Other Cancer Heart disease Hypertension Denies family history of Ovarian cancer Social History Smoking Status: Former smoker Tobacco Type: Cigarettes Age Started Using Tobacco: 16; packs per day: 0.5; Cigarettes Per Day: sometimes as much as 1 pack/day; Second Hand Exposure: No; Do You Dip or Chew Tobacco: No; Tobacco Cessation Education Requested by Patient: No Hx Alcohol Use: Yes Alcohol type: wine Hx Substance Use: No Preferred Language: Somali Communication Ability: Effective 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 Beliefs That Will Affect Care: None marital status: / Current Living Situation: Family Current Living Situation Comment: staying with daughter current occupational status: retired How many Children do You have: 2 How many Children do You have Comment: 1 son is Other Information That Helps Us Care for You: No Feels Safe at Home: Yes Safety Concerns: Feels Safe At This Time Childhood Exposure to Second-Hand Smoke: No Diet: regular caffeine: Yes Dental Care, Regularly: Yes Physical Activity Frequency: 3-4 Times per Week Seatbelt Use: always Sunscreen Use: Yes Assistive Devices: None Review of Systems Review of Systems: All systems reviewed & are unremarkable except as noted in HPI & below Physical Exam Constitutional: WD/WN, vitals as above + thin Neck: trachea midline, no thyromegaly Respiratory: normal respiratory effort, lungs clear to auscultation Cardiovascular: RRR, no murmur, no edema Gastrointestinal (Abdomen): normal bowel sounds, soft, nontender, no hepatosplenomegaly Results & Data Vital Signs (Past 12 Hours) Vital Signs Temp Pulse Pulse Resp BP BP Pulse Ox 01/08/25 10:39 67 24 116/43 L 96 01/08/25 10:00 54 L 12 85/52 L 93 01/08/25 09:30 53 L 13 87/45 L 93 01/08/25 09:00 54 L 22 88/42 L 92 01/08/25 09:00 88/42 L 01/08/25 09:00 88/42 L 01/08/25 08:30 54 L 17 116/51 L 97 01/08/25 08:10 55 L 17 103/43 L 97 01/08/25 08:00 51 L 21 103/43 L 97 01/08/25 07:00 51 L 19 112/43 L 94 01/08/25 06:53 50 L 01/08/25 06:00 55 L 18 120/53 L 95 01/08/25 05:44 36.7 C 55 L 16 94 01/08/25 05:21 50 L 14 105/47 L 96 01/08/25 05:21 01/08/25 03:00 53 L 18 105/47 L 94 01/08/25 01:00 47 L 18 112/49 L 94 01/08/25 01:00 52 L 01/07/25 23:00 56 L 17 95/39 L 93 Pulse Ox O2 Del Method O2 Del Method O2 Flow Rate 01/08/25 10:39 Room Air 01/08/25 10:00 Room Air 01/08/25 09:30 Room Air 01/08/25 09:00 Room Air 01/08/25 09:00 01/08/25 09:00 01/08/25 08:30 Room Air 01/08/25 08:10 Room Air 01/08/25 08:00 Room Air 01/08/25 07:00 Room Air 01/08/25 06:53 01/08/25 06:00 Room Air 01/08/25 05:44 Room Air 01/08/25 05:21 Room Air 01/08/25 05:21 96 Room Air 0 01/08/25 03:00 Room Air 01/08/25 01:00 Room Air 01/08/25 01:00 01/07/25 23:00 Room Air Laboratory Results 01/08/25 01/07/25 01/07/25 Range/Units 06:10 22:52 21:43 WBC 7.04 (4.8-10.8) K/ul RBC 3.49 L (4.20-5.40) M/uL Hgb 10.5 L (12.0-16.0) g/dl POC Hgb 11.9 L (12.0-16.0) g/dl Hct 31.5 L (37.0-47.0) % POC Hct 35 L (37-47) % MCV 90.3 (80.0-100.0) fL MCH 30.1 (25.0-34.0) pg MCHC 33.3 (32.0-36.0) g/dL RDW Std Deviation 43.3 (36.4-46.3) fL RDW Coeff of Harish 13.0 (11.5-14.5) % Plt Count 431 H (130-400) K/uL MPV 9.6 (9.4-12.4) fL Immature Gran % (Auto) % Neut % (Auto) % Lymph % (Auto) % [place] % (Auto) % Eos % (Auto) % Baso % (Auto) % Neut # (Auto) (1.40-6.50) K/uL Lymph # (Auto) (1.20-3.40) K/uL [place] # (Auto) (0.11-0.59) K/uL Eos # (Auto) (0.00-0.50) K/uL Baso # (Auto) (0.00-0.20) K/uL Immature Gran # (Auto) (0.01-0.20) K/uL ESR 70 H (0-30) mm/hr PT (9.0-12.0) Seconds INR (0.9-1.1) APTT (21-31) Seconds PTT Ratio POC Sodium 136 (135-144) mmol/L Sodium 139 (136-145) mmol/L POC Potassium 3.8 (3.3-5.0) mmol/L Potassium 3.8 (3.5-5.1) mmol/L POC Chloride 100 L (101-112) mmol/L Chloride 107 (98-107) mmol/L Carbon Dioxide 25 (21-32) mmol/L POC Total CO2 26 (24-31) mmol/L Anion Gap 7 (3-11) POC Anion Gap 15.0 L (16-25) mmol/L POC BUN 12 (7-18) mg/dl BUN 10 (6-23) mg/dl Creatinine 0.58 L (0.6-1.2) mg/dl POC Creatinine 0.8 (0.6-1.3) mg/dl Est Cr Clr Drug Dosing 52.9 ml/min eGFR 95.49 BUN/Creatinine Ratio 17.2 (10-20) Glucose 85 (70-99(Fasting)) mg/dl POC Glucose (other) 94 (70-99) mg/dl Calcium 8.8 (8.6-10.3) mg/dl POC Ioniz Calcium Qamar 1.20 (1.12-1.32) mmol/l Magnesium (1.7-2.4) mg/dl Iron 37 (35-150) mcg/dl Total Bilirubin (0.2-1.0) mg/dl AST (13-39) U/L ALT (7-52) U/L Alkaline Phosphatase (34-104) U/L Troponin I High Sens (0-14) pg/ml C-Reactive Protein 7.94 H (0-0.5) mg/dl Total Protein (6.0-8.3) gm/dl Albumin (3.4-5.0) gm/dl Globulin (2.5-4.0) gm/dl Albumin/Globulin Ratio (0.9-2) Lipase (11-82) U/L TSH (0.300-4.500) uIu/ml Free T4 0.89 (0.61-1.60) ng/dl Free T3 (2.3-4.2) pg/ml Urine Color Yellow Urine Appearance Clear (Clear) Urine pH 6.0 (4.5-7.5) Ur Specific [place] 1.016 (1.000-1.030) Urine Protein Trace H (Negative) Urine Glucose (UA) Negative (Negative) Urine Ketones Negative (Negative) Urine Blood Trace H (Negative) Urine Nitrite Negative (Negative) Urine Bilirubin Negative (Negative) Urine Urobilinogen Negative (Negative) Ur Leukocyte Esterase 1+ H (Negative) Urine WBC (Auto) 0-5 (0-5) /hpf Urine RBC (Auto) 3-5 H (0-2) /hpf U Hyaline Cast (Auto) 0-2 (0-2) /lpf U Epithel Cells (Auto) 0-2 (0-2) /hpf Urine Bacteria (Auto) 1+ H (None Seen) Urine Comment Stl C. cayetanensis PCR Not Detected (NotDetected) Stool Rotavirus A PCR Not Detected (NotDetected) Stl Adenov F 40/41 PCR Not Detected (NotDetected) Stool Astrovirus (PCR) Not Detected (NotDetected) Stool Campylobacter PCR Not Detected (NotDetected) Stl C. diff Tox B Gene Negative Cdiff Gene (Neg) Stl C. diff 027-NAP1-BI NEGATIVE Stool Cryptosporidium PCR Not Detected (NotDetected) Stl E.coli Shiga Tox PCR Not Detected (NotDetected) Stl Enterotoxigenic E PCR Not Detected (NotDetected) Stool EPEC (PCR) Not Detected (NotDetected) Stool EAEC (PCR) Not Detected (NotDetected) Stl E. histolytica PCR Not Detected (NotDetected) Stool Giardia Lamblia PCR Not Detected (NotDetected) Stool Salmonella PCR Not Detected (NotDetected) Stool Sapovirus (PCR) Not Detected (NotDetected) Stl P. shigelloides PCR Not Detected (NotDetected) Stl Shigella/EIEC PCR Not Detected (NotDetected) St Y.enterocolitica PCR Not Detected (NotDetected) Stool Vibrio (PCR) Not Detected (NotDetected) Stl Vibrio cholerae PCR Not Detected (NotDetected) Stl Norovirus GI/GII PCR Not Detected (NotDetected) Blood Type Antibody Screen 01/07/25 01/07/25 Range/Units 21:36 21:34 WBC 8.17 (4.8-10.8) K/ul RBC 3.90 L (4.20-5.40) M/uL Hgb 11.4 L (12.0-16.0) g/dl POC Hgb (12.0-16.0) g/dl Hct 35.3 L (37.0-47.0) % POC Hct (37-47) % MCV 90.5 (80.0-100.0) fL MCH 29.2 (25.0-34.0) pg MCHC 32.3 (32.0-36.0) g/dL RDW Std Deviation 43.5 (36.4-46.3) fL RDW Coeff of Harish 13.2 (11.5-14.5) % Plt Count 469 H (130-400) K/uL MPV 9.6 (9.4-12.4) fL Immature Gran % (Auto) 0.5 % Neut % (Auto) 55.2 % Lymph % (Auto) 24.4 % [place] % (Auto) 9.9 % Eos % (Auto) 9.3 % Baso % (Auto) 0.7 % Neut # (Auto) 4.51 (1.40-6.50) K/uL Lymph # (Auto) 1.99 (1.20-3.40) K/uL [place] # (Auto) 0.81 H (0.11-0.59) K/uL Eos # (Auto) 0.76 H (0.00-0.50) K/uL Baso # (Auto) 0.06 (0.00-0.20) K/uL Immature Gran # (Auto) 0.04 (0.01-0.20) K/uL ESR (0-30) mm/hr PT 10.3 (9.0-12.0) Seconds INR 0.9 (0.9-1.1) APTT 29 (21-31) Seconds PTT Ratio 1.1 POC Sodium (135-144) mmol/L Sodium 137 (136-145) mmol/L POC Potassium (3.3-5.0) mmol/L Potassium 3.9 (3.5-5.1) mmol/L POC Chloride (101-112) mmol/L Chloride 101 (98-107) mmol/L Carbon Dioxide 28 (21-32) mmol/L POC Total CO2 (24-31) mmol/L Anion Gap 8 (3-11) POC Anion Gap (16-25) mmol/L POC BUN (7-18) mg/dl BUN 13 (6-23) mg/dl Creatinine 0.66 (0.6-1.2) mg/dl POC Creatinine (0.6-1.3) mg/dl Est Cr Clr Drug Dosing 46.5 ml/min eGFR 92.57 BUN/Creatinine Ratio 19.7 (10-20) Glucose 94 (70-99(Fasting)) mg/dl POC Glucose (other) (70-99) mg/dl Calcium 9.4 (8.6-10.3) mg/dl POC Ioniz Calcium Qamar (1.12-1.32) mmol/l Magnesium 1.6 L (1.7-2.4) mg/dl Iron (35-150) mcg/dl Total Bilirubin 0.2 (0.2-1.0) mg/dl AST 33 (13-39) U/L ALT 56 H (7-52) U/L Alkaline Phosphatase 116 H (34-104) U/L Troponin I High Sens 7.6 (0-14) pg/ml C-Reactive Protein (0-0.5) mg/dl Total Protein 6.8 (6.0-8.3) gm/dl Albumin 3.1 L (3.4-5.0) gm/dl Globulin 3.7 (2.5-4.0) gm/dl Albumin/Globulin Ratio 0.8 L (0.9-2) Lipase 19 (11-82) U/L TSH 6.568 H (0.300-4.500) uIu/ml Free T4 (0.61-1.60) ng/dl Free T3 3.00 (2.3-4.2) pg/ml Urine Color Urine Appearance (Clear) Urine pH (4.5-7.5) Ur Specific [place] (1.000-1.030) Urine Protein (Negative) Urine Glucose (UA) (Negative) Urine Ketones (Negative) Urine Blood (Negative) Urine Nitrite (Negative) Urine Bilirubin (Negative) Urine Urobilinogen (Negative) Ur Leukocyte Esterase (Negative) Urine WBC (Auto) (0-5) /hpf Urine RBC (Auto) (0-2) /hpf U Hyaline Cast (Auto) (0-2) /lpf U Epithel Cells (Auto) (0-2) /hpf Urine Bacteria (Auto) (None Seen) Urine Comment Stl C. cayetanensis PCR (NotDetected) Stool Rotavirus A PCR (NotDetected) Stl Adenov F 40/41 PCR (NotDetected) Stool Astrovirus (PCR) (NotDetected) Stool Campylobacter PCR (NotDetected) Stl C. diff Tox B Gene (Neg) Stl C. diff 027-NAP1-BI Stool Cryptosporidium PCR (NotDetected) Stl E.coli Shiga Tox PCR (NotDetected) Stl Enterotoxigenic E PCR (NotDetected) Stool EPEC (PCR) (NotDetected) Stool EAEC (PCR) (NotDetected) Stl E. histolytica PCR (NotDetected) Stool Giardia Lamblia PCR (NotDetected) Stool Salmonella PCR (NotDetected) Stool Sapovirus (PCR) (NotDetected) Stl P. shigelloides PCR (NotDetected) Stl Shigella/EIEC PCR (NotDetected) St Y.enterocolitica PCR (NotDetected) Stool Vibrio (PCR) (NotDetected) Stl Vibrio cholerae PCR (NotDetected) Stl Norovirus GI/GII PCR (NotDetected) Blood Type O Positive Antibody Screen NEGATIVE Diagnostic Findings Abdomen/Pelvis CT 01/07/25 22:26 Exam(s): CT ABDOMEN + PELVIS With Contrast IV Amt: OPTIRAY 320 93ML EXAM: CT Abdomen and Pelvis With Intravenous Contrast CLINICAL HISTORY: Reason for exam: abd pain, GI bleed, recent cdiff, hx crohns. TECHNIQUE: Axial computed tomography images of the abdomen and pelvis with intravenous contrast. CTDI is 6.14 mGy and DLP is 225.73 mGy-cm. Automated exposure control was utilized for the study. A dose lowering technique was utilized adhering to the principles of ALARA. CONTRAST: Patient received OPTIRAY 320 93ML of IV contrast COMPARISON: 12/16/2024 FINDINGS: There is a fat containing Bochdalek hernia at the left lung base. Lung bases are otherwise unremarkable. There is stable hepatomegaly. Portal vein is patent. Gallbladder is partially contracted. There is no biliary dilatation. Spleen and pancreas are unremarkable. Adrenal glands appear normal. Kidneys enhance symmetrically. There is no hydronephrosis. There is heavy atherosclerotic calcification of the abdominal aorta without aneurysm or dissection. No adenopathy is seen. There is no free air or significant free fluid. There are postoperative changes of the bowel, probably subtotal colectomy and ileocolic anastomosis of the pelvis. This should be correlated with operative history. Anastomotic staple line is seen in the right upper quadrant and in the pelvis. There is wall thickening and adjacent fat stranding surrounding the rectum. There is no evidence of mechanical bowel obstruction. Uterus is absent. Urinary bladder wall appears thickened. There is a chronic L1 compression fracture. Bones are demineralized. There are no acute osseous findings. IMPRESSION: 1. Postoperative bowel changes, probably subtotal colectomy with ileocolic anastomosis in the pelvis. This should be correlated with operative history. 2. Inflammatory appearance of the rectum with adjacent fat stranding concerning for proctitis/proctocolitis. This could be infectious or related to patient's history of Crohn's disease. 3. Bladder wall thickening which should be correlated with urinalysis to assess for cystitis. Electronically signed by: Kym London M.D. 01/07/25 23:58 PM
--- NOTE | 2025-01-08 14:42 | Hospitalist Progress Note ---
Date of Service January 08, 2025 Assessment & Plan (1) Bleeding per rectum: Plan: Lower GI bleed due to suspected Crohn's exacerbation. Serial labs ordered. Parenteral steroids for now. GI consultation noted. Await recent flex sig biopsy pathology report. (2) Clostridioides difficile infection: Plan: Recent. She is currently on Dificid (3) Proctitis: Plan: Seen on CT scan. Possible source of lower GI bleeding. Probably related to history of Crohn's disease. She is currently on parenteral steroid therapy (4) Crohns disease: Plan: By history. Suspect current exacerbation. Continue parenteral steroids for now (5) Severe protein-calorie malnutrition: Plan: Per [place] criteria. Clear liquids for now. Advance as tolerated (6) Elevated LFTs: Plan: Present on admission. Will follow (7) COPD (chronic obstructive pulmonary disease): Plan: Stable. Continue current medical management (8) CAD (coronary artery disease): Plan: Stable. Continue current medical management (9) HTN (hypertension): Plan: Systolic pressure is borderline low. Amlodipine is on hold. Plan Hopefully the lower GI bleeding will stop spontaneously and she can return home sometime in the next 2 to 3 days Admission and Anticipated Discharge Date Admission Date: January 08, 2025 Subjective Alert and oriented. No distress. Hemoglobin is down slightly to 10.5 but no indication for blood transfusion. Iron level is borderline low and parenteral iron replacement has been started. GI consultation noted. Will await pathology report from recent flex sig biopsy done at [facility]. Sed rate is markedly elevated at 70. She is now on parenteral steroid therapy. Amlodipine is on hold due to borderline low blood pressure. She has been started on a clear liquid diet and IV fluids tapered down. Review of Systems 2 Review of Systems: Constitutionalno fever or chills ENTno blurred vision, no double vision, no epistaxis, no sore throat Respiratoryno cough, no wheezing, no shortness of breath Cardiacno palpitations, no chest pain, no syncope Beto nausea, vomiting. Diffuse mild abdominal discomfort. Hematochezia. No melena GUno urinary retention, no urinary incontinence, no dysuria, no hematuria Musculoskeletalno joint pain, no muscle tenderness Skinno bruising, no rashes, no pruritus Neurono isolated weakness, no paresthesia, no weakness Psychno depression, no anxiety Physical Exam 2 Physical Exam: General-alert and oriented x3, no fever, no chills HEENT-head atraumatic and normocephalic, pupils equal and reactive to light, extraocular muscles intact Neck-no lymphadenopathy or thyromegaly, trachea midline Chest-clear to auscultation. No rales, wheezing or rhonchi Cardiac-regular rate and rhythm, normal S1 and S2 Abdomen-normal bowel sounds, no hepatosplenomegaly. Mild tenderness to palpation in the mid abdomen and left lower quadrant. No masses. No rebound or guarding Extremities-no cyanosis, clubbing, or edema Neuro-cranial nerves II through XII intact, motor and sensory function within normal limits, strength symmetrical, no focal deficits Psych-normal affect, normal mood Results & Data Results & Data Vital Signs (Past 12 Hours) Vital Signs Temp Pulse Pulse Resp BP BP Pulse Ox 01/08/25 12:18 36.6 C 59 L 18 109/42 L 97 01/08/25 10:39 67 24 116/43 L 96 01/08/25 10:00 54 L 12 85/52 L 93 01/08/25 09:30 53 L 13 87/45 L 93 01/08/25 09:00 54 L 22 88/42 L 92 01/08/25 09:00 88/42 L 01/08/25 09:00 88/42 L 01/08/25 08:30 54 L 17 116/51 L 97 01/08/25 08:10 55 L 17 103/43 L 97 01/08/25 08:00 51 L 21 103/43 L 97 01/08/25 07:00 51 L 19 112/43 L 94 01/08/25 06:53 50 L 01/08/25 06:00 55 L 18 120/53 L 95 01/08/25 05:44 36.7 C 55 L 16 94 01/08/25 05:21 50 L 14 105/47 L 96 01/08/25 05:21 01/08/25 03:00 53 L 18 105/47 L 94 Pulse Ox O2 Del Method O2 Del Method O2 Flow Rate 01/08/25 12:18 Room Air 01/08/25 10:39 Room Air 01/08/25 10:00 Room Air 01/08/25 09:30 Room Air 01/08/25 09:00 Room Air 01/08/25 09:00 01/08/25 09:00 01/08/25 08:30 Room Air 01/08/25 08:10 Room Air 01/08/25 08:00 Room Air 01/08/25 07:00 Room Air 01/08/25 06:53 01/08/25 06:00 Room Air 01/08/25 05:44 Room Air 01/08/25 05:21 Room Air 01/08/25 05:21 96 Room Air 0 01/08/25 03:00 Room Air Laboratory Results 01/08/25 06:10 01/08/25 06:10 PG Care Time/CCT Total # of Minutes Spent Total Time Spent with Patient: Total time spent is greater than 50% in coordination of care (as documented) at patient's floor/unit and/or counseling patient: Coding Level of Care Code 68026 SUB INP/OBS CARE 3/50MIN Diagnoses Bleeding per rectum K62.5 Clostridioides difficile infection A49.8 Proctitis K62.89 Crohn's disease without complication, unspecified gastrointestinal tract location K50.90 Severe protein-calorie malnutrition E43 Elevated LFTs R79.89 COPD (chronic obstructive pulmonary disease) J44.9 CAD (coronary artery disease) I25.10 Primary hypertension I10 Hypertension type: primary hypertension (9) HTN (hypertension) Hypertension type: primary hypertension Qualified Code(s): I10 - Essential (primary) hypertension
[2025-01-08 18:34] LABS: Hematocrit (blood only) 34.6 % (37.0-47.0)
[2025-01-09 06:23] LABS: Basophils # (auto) 0.01 K/uL (0.00-0.20); Basophils % (auto) 0.3 %; Eosinophils # (auto) 0.02 K/uL (0.00-0.50); Eosinophils % (auto) 0.5 %; Hematocrit (blood only) 32.3 % (37.0-47.0); Hemoglobin 10.3 g/dl (12.0-16.0); Immature Granulocytes # (auto) 0.04 K/uL (0.01-0.20); Lymphocytes # (auto) 0.81 K/uL (1.20-3.40); Lymphocytes % (auto) 20.3 %; Mean Corpuscular Hemoglobin 28.9 pg (25.0-34.0); Mean Corpuscular Hgb Conc 31.9 g/dL (32.0-36.0); Mean Corpuscular Volume 90.5 fL (80.0-100.0); Mean Platelet Volume 9.1 fL (9.4-12.4); Monocytes # (auto) 0.23 K/uL (0.11-0.59); Monocytes % (auto) 5.8 %; Neutrophils # (auto) 2.89 K/uL (1.40-6.50); Neutrophils % (auto) 72.1 %; Platelet Count 430 K/uL (130-400); RDW Coefficient of Variation 13.3 % (11.5-14.5); RDW Standard Deviation 43.8 fL (36.4-46.3); Red Blood Count 3.57 M/uL (4.20-5.40)
[2025-01-09 06:53] LABS: BUN Creatinine Ratio 10.4 (10-20); Calcium 8.8 mg/dl (8.6-10.3); Creatinine Clr Calc Pharmacy 64.1 ml/min; Potassium 3.7 mmol/L (3.5-5.1)
--- NOTE | 2025-01-09 11:12 | Hospitalist Progress Note ---
Date of Service January 09, 2025 Assessment & Plan (1) Bleeding per rectum: Plan: Lower GI bleed due to suspected Crohn's exacerbation. Continued bloody stools last evening and again this morning. Hemoglobin is currently stable at 10.3. Will repeat hemoglobin level again this afternoon. Continue clear liquid diet. Continue parenteral steroids for now. GI consultation noted. Await recent flex sig biopsy pathology report. (2) Clostridioides difficile infection: Plan: Recent. She is currently on Dificid (3) Proctitis: Plan: Seen on CT scan. Possible source of lower GI bleeding. Probably related to history of Crohn's disease. She is currently on parenteral steroid therapy (4) Iron deficiency: Plan: Serum iron level is borderline low. Continue parenteral iron replacement, day 2 of 3. (5) Crohns disease: Plan: By history. Suspect current exacerbation. Continue parenteral steroids for now (6) Severe protein-calorie malnutrition: Plan: Per [place] criteria. Clear liquids for now. Advance as tolerated (7) Elevated LFTs: Plan: Present on admission. Will follow (8) COPD (chronic obstructive pulmonary disease): Plan: Stable. Continue current medical management (9) CAD (coronary artery disease): Plan: Stable. Continue current medical management (10) HTN (hypertension): Plan: Systolic pressure remains on the low side. Amlodipine remains on hold. Plan Hopefully the lower GI bleeding will stop spontaneously and she can return home sometime in the next day or 2 Admission and Anticipated Discharge Date Admission Date: January 08, 2025 Subjective The patient states she had bloody stool again last evening and this morning. Hemoglobin this morning is 10.3. Will repeat again this afternoon. Parenteral iron day 2 today. She remains on a clear liquid diet. Blood pressure remains on the low side and amlodipine remains on hold. Parenteral steroid therapy day 2. Recent flexible sigmoidoscopy pathology is pending. Appreciate GI consultation and recommendations. Thyroid status is unremarkable. Review of Systems 2 Review of Systems: Constitutionalno fever or chills ENTno blurred vision, no double vision, no epistaxis, no sore throat Respiratoryno cough, no wheezing, no shortness of breath Cardiacno palpitations, no chest pain, no syncope Beto nausea, vomiting. Diffuse mild abdominal discomfort. Hematochezia. No melena GUno urinary retention, no urinary incontinence, no dysuria, no hematuria Musculoskeletalno joint pain, no muscle tenderness Skinno bruising, no rashes, no pruritus Neurono isolated weakness, no paresthesia, no weakness Psychno depression, no anxiety Physical Exam 2 Physical Exam: General-alert and oriented x3, no fever, no chills HEENT-head atraumatic and normocephalic, pupils equal and reactive to light, extraocular muscles intact Neck-no lymphadenopathy or thyromegaly, trachea midline Chest-clear to auscultation. No rales, wheezing or rhonchi Cardiac-regular rate and rhythm, normal S1 and S2 Abdomen-normal bowel sounds, no hepatosplenomegaly. Mild tenderness to palpation in the mid abdomen and left lower quadrant. No masses. No rebound or guarding Extremities-no cyanosis, clubbing, or edema Neuro-cranial nerves II through XII intact, motor and sensory function within normal limits, strength symmetrical, no focal deficits Psych-normal affect, normal mood Results & Data Results & Data Vital Signs (Past 12 Hours) Vital Signs Temp Pulse Pulse Resp BP BP Pulse Ox 01/09/25 08:38 52 L 18 97/53 L 94 01/09/25 07:39 55 L 01/09/25 03:57 36.6 C 63 14 107/58 L 91 01/09/25 02:19 45 L 104/49 L 01/08/25 23:59 36.8 C 55 L 16 93/41 L 91 O2 Del Method 01/09/25 08:38 Room Air 01/09/25 07:39 01/09/25 03:57 Room Air 01/09/25 02:19 01/08/25 23:59 Room Air Laboratory Results 01/09/25 06:10 01/09/25 06:10 PG Care Time/CCT Total # of Minutes Spent Total Time Spent with Patient: Total time spent is greater than 50% in coordination of care (as documented) at patient's floor/unit and/or counseling patient: Coding Level of Care Code 81899 SUB INP/OBS CARE 3/50MIN Diagnoses Bleeding per rectum K62.5 Clostridioides difficile infection A49.8 Proctitis K62.89 Iron deficiency E61.1 Crohn's disease without complication, unspecified gastrointestinal tract location K50.90 Severe protein-calorie malnutrition E43 Elevated LFTs R79.89 COPD (chronic obstructive pulmonary disease) J44.9 CAD (coronary artery disease) I25.10 Primary hypertension I10 Hypertension type: primary hypertension (10) HTN (hypertension) Hypertension type: primary hypertension Qualified Code(s): I10 - Essential (primary) hypertension
--- NOTE | 2025-01-09 12:28 | Gastroenterology Progress Note ---
Date of Service January 09, 2025 Assessment & Plan (1) Proctitis: Plan: Okay with me for her to go home on a short course of steroids and also so she can go get her Entyvio. She will need to follow closely in GI clinic Admission and Anticipated Discharge Date Admission Date: January 09, 2025 Subjective Still having bleeding but ready to go home. Biopsies reviewed and it appears to me that she had active Crohn's on her biopsies done in [place]. Physical Exam Physical Exam: She looks thin but well Constitutional: WD/WN, vitals as above Results & Data Vital Signs (Past 12 Hours) Vital Signs Temp Pulse Pulse Resp BP BP Pulse Ox 01/09/25 08:38 52 L 18 97/53 L 94 01/09/25 07:39 55 L 01/09/25 03:57 36.6 C 63 14 107/58 L 91 01/09/25 02:19 45 L 104/49 L O2 Del Method 01/09/25 08:38 Room Air 01/09/25 07:39 01/09/25 03:57 Room Air 01/09/25 02:19
[2025-01-09 15:16] LABS: Hematocrit (blood only) 34.7 % (37.0-47.0); Hemoglobin 10.8 g/dl (12.0-16.0)
[2025-01-10 07:00] LABS: Calcium 8.9 mg/dl (8.6-10.3); Potassium 4.1 mmol/L (3.5-5.1)
[2025-01-10 07:06] LABS: BUN Creatinine Ratio 12.5 (10-20)
[2025-01-10 07:35] LABS: Basophils # (auto) 0.04 K/uL (0.00-0.20); Basophils % (auto) 0.4 %; Hematocrit (blood only) 35.2 % (37.0-47.0); Immature Granulocytes # (auto) 0.07 K/uL (0.01-0.20); Immature Granulocytes % (auto) 0.8 %; Lymphocytes # (auto) 1.89 K/uL (1.20-3.40); Mean Corpuscular Hemoglobin 29.2 pg (25.0-34.0); Mean Corpuscular Hgb Conc 31.3 g/dL (32.0-36.0); Mean Corpuscular Volume 93.4 fL (80.0-100.0); Mean Platelet Volume 9.4 fL (9.4-12.4); Monocytes # (auto) 0.59 K/uL (0.11-0.59); Monocytes % (auto) 6.5 %; Neutrophils # (auto) 6.43 K/uL (1.40-6.50); Neutrophils % (auto) 71.3 %; Platelet Count 480 K/uL (130-400); RDW Coefficient of Variation 13.6 % (11.5-14.5); RDW Standard Deviation 46.4 fL (36.4-46.3); Red Blood Count 3.77 M/uL (4.20-5.40); White Blood Count 9.02 K/ul (4.8-10.8)
[2025-01-10 08:12] VITALS: RESP 18; O2SAT 96
[2025-01-10 11:31] VITALS: BP 119/48; PULSE 53; TEMP 98.1
--- NOTE | 2025-01-10 12:33 | Discharge Summary ---
Discharge Summary Date of Service January 10, 2025 Principal Dx & Hospital Course #1 = Principal Diagnosis (1) Bleeding per rectum: Lower GI bleed due to suspected Crohn's exacerbation. Appears to have resolved now. Hemoglobin is stable. Diet has been advanced. Treated while hospitalized with parenteral steroid therapy. GI consultation and recommendations appreciated. Recent flex sig biopsy pathology reveals active Crohn's disease. She will continue with oral prednisone tapering dose at discharge. (2) Clostridioides difficile infection: Recent. She is currently on Dificid (3) Proctitis: Seen on CT scan. Possible source of lower GI bleeding. Probably related to history of Crohn's disease. She is currently on parenteral steroid therapy (4) Iron deficiency: Serum iron level is borderline low. She received parenteral iron daily for 3 days while hospitalized. She will continue with oral ferrous sulfate at discharge. (5) Crohns disease: By history. Suspect current exacerbation. Treated while hospitalized with parenteral steroid therapy. She will remain on a oral steroid tapering dose at discharge. (6) Severe protein-calorie malnutrition: Per [place] criteria. Diet has been advanced (7) Elevated LFTs: Present on admission. Will follow (8) COPD (chronic obstructive pulmonary disease): Stable. Continue current medical management (9) CAD (coronary artery disease): Stable. Continue current medical management (10) HTN (hypertension): Systolic pressure was somewhat low and amlodipine held this admission. Blood pressure is now stable. Amlodipine will be restarted at discharge (11) Leg edema, left: No calf tenderness. No evidence of DVT. This appears to be due to IV fluids administered while hospitalized. This should resolve without further intervention. Plan Home today, January 10. Follow-up with PCP and computer meteorologist as soon as possible. Admission HPI Per Admitting Provider Pleasant 74yo female with history of CAD s/p CABG, Crohn's disease, COPD, hypothyroidism, ongoing tobacco dependence, HTN, hyperlipidemia, underweight, p rior total colectomy with ileostomy creation, ileostomy reversal with ileal- rectal anastomosis, and recent hospital admission to [facility] from 12/26 to 01/07. Records from the admissions process on 12/26 at [facility] allude to concern for small bowel obstruction but this was later ruled out. She underwent stool studies and tested positive for c diff. By the patient's report she was on oral vancomycin as well as vancomycin enemas twice daily. Despite such her abdominal discomforts, diarrhea, rectal pain, etc continued and she was later switched to Dificid. Her diarrhea did improve to about 4-6 liquid stools/day. Previously was having 15+ stools/day over the last month. On 12/28/24 she underwent flex sig by [facility]. This showed severe rectal inflammation. Biopsies were taken; I do not have those results. She was told, however, that her Crohn's was "active." Records further show that her sed rate was 60 and CRP was 7.2 on 12/26/24. She was d/c to home with instructions to continue her course of Dificid early in the afternoon on 01/07/25. Upon returning home she took a 2-hour nap, then upon awakening had to move her bowels. She reports there was little to no stool but copious amounts of "dark blood" in the toilet bowl. No bright red blood. She states that during the entire hospitalization at [place] she did not have any blood per rectum (although the admission H/P states she had been having some blood at home prior to the [place] admission). Since coming to [facility] she has had no further blood per rectum. Her main complaint other than the concern for the blood is that of rectal pain. This has not improved despite aggressive treatment of cdiff. She also continues with abdominal discomfort. No vomiting. Discharge Exam General-alert and oriented x3, no fever, no chills HEENT-head atraumatic and normocephalic, pupils equal and reactive to light, extraocular muscles intact Neck-no lymphadenopathy or thyromegaly, trachea midline Chest-clear to auscultation. No rales, wheezing or rhonchi Cardiac-regular rate and rhythm, normal S1 and S2 Abdomen-normal bowel sounds, no hepatosplenomegaly. Mild tenderness to palpation in the mid abdomen and left lower quadrant. No masses. No rebound or guarding Extremities-mild 1+ edema in the distal lower extremity foot region on the left Neuro-cranial nerves II through XII intact, motor and sensory function within normal limits, strength symmetrical, no focal deficits Psych-normal affect, normal mood Discharge Plan Discharge Items Patient Disposition: Home - Self-Care Reason For Visit: BRIGHT RED BLEEDING PER RECTUM, C DIFF INFECTION Discharge Diagnosis: Lower GI bleeding from exacerbation of Crohn's disease, recently diagnosed C. difficile enteritis Condition on Discharge: Good Activity: Resume your previous activity Non-emergency contact: Primary Care Provider and Dimension Quarry Supervisor Call non-emergency contact if: you have any medication questions and your symptoms worsen Follow-up/Referrals: Ricardo Turcios DO [Primary Care Provider] - Diet: Regular and Heart Healthy Addtl Attending Provider Instructions: Take prednisone in a tapering dose fashion as directed. Take iron supplementation twice daily. Prescriptions have been sent to the [facility] pharmacy in [place]. See primary care provider and computer meteorologist as soon as possible. Pending Studies at Discharge: No Stand-Alone Forms: My [facility] ADmantX, Smoking Cessation Medications and DC Order Prescriptions: New prednisone 10 mg tablet See Rx Instructions .ROUTE .COMPLEX Qty: 12 0RF Rx Instructions: 10 mg orally 3 times a day for 2 days, then 10 mg twice a day for 2 days, then 10 mg once a day for 2 days, then stop ferrous sulfate 325 mg (65 mg iron) tablet 325 mg PO BID Qty: 60 0RF Continued amiodarone 100 mg tablet 100 mg PO DAILY Qty: 90 3RF primidone 50 mg tablet 250 mg PO BID Qty: 900 1RF clonazepam 0.5 mg tablet 0.25 mg PO BID PRN (Reason: anxiety) Qty: 30 2RF acetaminophen [Tylenol Extra Strength] 500 mg Tablet 1,000 mg PO Q8H PRN (Reason: Pain) rosuvastatin 40 mg tablet 40 mg PO DAILY metoprolol succinate 25 mg tablet extended release 24 hr 50 mg PO HS dicyclomine 10 mg capsule 10 mg PO TID PRN (Reason: abdominal cramping) Entyvio 300 mg recon soln 300 mg IV .Q8WKS mirtazapine 15 mg tablet 15 mg PO HS escitalopram oxalate [Lexapro] 20 mg tablet 20 mg PO QAM omeprazole 40 mg capsule,delayed release(DR/EC) 40 mg PO BID nitroglycerin 0.4 mg tablet, sublingual 0.4 mg sublingual UD PRN (Reason: Chest Pain) amlodipine 5 mg tablet 5 mg PO DAILY aspirin 81 mg Tablet,Delayed Release (Dr/Ec) 81 mg PO DAILY triamcinolone acetonide 0.1 % Cream 1 applic TOPICAL BID PRN (Reason: SKIN IRRITATIONS) hydrocortisone acetate 25 mg Suppository 25 mg HI BID PRN (Reason: Hemorrhoids) famotidine 20 mg Tablet 20 mg PO BID PRN (Reason: Heartburn) Fleet Enema 19-7 gram/118 mL Enema 118 ml HI DAILY PRN (Reason: Constipation) ondansetron [Zofran ODT] 4 mg Tablet,Disintegrating 4 mg PO TID PRN (Reason: NAUSEA/VOMITING) oxycodone 5 mg Tablet 5 mg PO TID PRN (Reason: Pain (Scale Score 4-6)) bupropion HCl [Wellbutrin XL] 150 mg Tablet Extended Release 24 Hr 150 mg PO QAM diazepam 5-7.5-10 mg Kit 5 mg HI TID PRN (Reason: RECTAL PAIN/SPASMS) fidaxomicin 200 mg Tablet 200 mg PO Q12H budesonide 9 mg Tablet,Delayed And Ext.Release 9 mg PO QAM levothyroxine 50 mcg tablet 50 mcg PO DAILYBB Rx Instructions: take 1 hour before breakfast gabapentin 100 mg capsule 200 mg PO TID Discharge Orders: Discharge Order (Routine); Ordered 01/10/25 Ordered By: Abundio Manzano Admission Data Admit Date/Time: 01/09/25 11:07 Attending Provider: Abundio Manzano Admit Provider: Andres Acevedo Primary Care Provider: Ricardo Turcios Other Providers: Andres Acevedo; Alexandrea Berg Jr Hospital Stay Data Consultations 01/08/25 01:35 ED Decision to Admit Stat 01/08/25 05:21 Consult Gastroenterology Routine Diagnostic Imagining Performed 01/07/25 22:26 CT abd pelvis IV con only Stat Pending Results Patient Have Any Pending Studies at Discharge: No Discharge Instructions Given to Patient (Per Discharging Provider) Take prednisone in a tapering dose fashion as directed. Take iron supplementation twice daily. Prescriptions have been sent to the [facility] pharmacy in [place]. See primary care provider and computer meteorologist as soon as possible. Total Time Total Time Spent Total Time Spent (In Minutes): 50 minutes Coding Level of Care Code 06953 INP/OBS DISCH >30 MIN Diagnoses Bleeding per rectum K62.5 Clostridioides difficile infection A49.8 Proctitis K62.89 Iron deficiency E61.1 Crohn's disease without complication, unspecified gastrointestinal tract location K50.90 Severe protein-calorie malnutrition E43 Elevated LFTs R79.89 COPD (chronic obstructive pulmonary disease) J44.9 CAD (coronary artery disease) I25.10 Primary hypertension I10 Hypertension type: primary hypertension Leg edema, left R60.0
--- NOTE | 2025-01-10 15:33 | Electrocardiogram Report ---
Test Reason : Blood Pressure : */* mmHG Vent. Rate : 61 BPM Atrial Rate : 61 BPM P-R Int : 130 ms QRS Dur : 96 ms QT Int : 438 ms P-R-T Axes : 47 42 71 degrees QTcB Int : 440 ms Normal sinus rhythm Nonspecific T wave abnormality Abnormal ECG When compared with ECG of 19-Sep-2023 18:48, Nonspecific T wave abnormality, worse in Anterior leads Confirmed by Johnathan Soto ([id number]) on 01/10/2025 3:33:44 PM Referred By: REFERRED SELF Confirmed By: Johnathan Soto
== END 2025-01-10 15:40 | disposition home or self-care (01) | DRG 385 ==
LOC: EDINP 20:21 → ED 20:21 → SUATTDRO 01-08 03:04 → 2N 01-08 05:21

== ENCOUNTER 2025-03-29 17:46 | Inpatient (IN) ==
[2025-03-29] MEDS: ONDANSETRON INJ 2 MG/ML 2 ML VIAL IV STA (18:54)
[2025-03-29 19:10] LABS: Hematocrit (blood only) 37.8 % (37.0-47.0); Hemoglobin 13.0 g/dl (12.0-16.0); Immature Granulocytes # (auto) 0.02 K/uL (0.01-0.20); Immature Granulocytes % (auto) 0.2 %; Mean Corpuscular Hemoglobin 30.2 pg (25.0-34.0); Mean Corpuscular Volume 87.9 fL (80.0-100.0); Platelet Count 541 K/uL (130-400); RDW Standard Deviation 47.6 fL (36.4-46.3); Red Blood Count 4.30 M/uL (4.20-5.40); White Blood Count 10.65 K/ul (4.8-10.8)
[2025-03-29 19:28] LABS: Creatinine Clr Calc Pharmacy 38.1 ml/min
[2025-03-29 19:40] LABS: Cdiff Toxin B Gene (2yr or >) Positive Cdiff Gene (Neg)
[2025-03-29 20:07] LABS: Adenovirus F 40/41 PCR Not Detected (NotDetected); Campylobacter PCR Not Detected (NotDetected); Enteroaggregative E.coli(EAEC) Not Detected (NotDetected); Shiga-like Toxin E.coli (STEC) Not Detected (NotDetected); Vibrio species PCR Not Detected (NotDetected)
--- NOTE | 2025-03-29 20:20 | Emergency Department Note ---
History of Present Illness General Chief complaint: Abdominal Pain Stated complaint: SEVERE CROHNS FLARE UP PAIN Time Seen by Provider: 03/29/25 20:04 History of Present Illness Maximum Pain Intensity: 7 This is a 74-year-old female who presents to the emergency department via private vehicle with complaints of "severe Crohn's flare". The patient notes history of Crohn's disease managed with Entyvio. She follows closely with [facility]. She notes that there is potential for colorectal surgery for ileostomy. However at the present time no immediate plan for surgery. She states that she has had diarrhea since December of this year. She notes there is blood intermittently in the diarrhea as well. She denies any fever. She does note C. difficile infection in December of this year. Current pain 01/26. She notes the pain is just superior to the umbilicus. She notes frequent bowel movements that are all diarrhea. No vomiting. Patient notes that she is currently on oral steroids. Home Medications Medication Instructions Recorded Confirmed Type acetaminophen 500 mg tablet 1,000 mg PO Q8H PRN Pain 04/19/22 03/29/25 History (Tylenol Extra Strength) dicyclomine 10 mg capsule 10 mg PO TID PRN abdominal cramping 12/16/24 03/29/25 History escitalopram oxalate 20 mg tablet 20 mg PO QAM 12/16/24 03/29/25 History (Lexapro) mirtazapine 15 mg tablet 15 mg PO HS 12/16/24 03/29/25 History nitroglycerin 0.4 mg sublingual 0.4 mg sublingual UD PRN Chest Pain 12/16/24 03/29/25 History tablet rosuvastatin 40 mg tablet 40 mg PO QAM 12/16/24 03/29/25 History vedolizumab 300 mg intravenous 300 mg IV UD 12/16/24 03/29/25 History solution (Entyvio) amlodipine 5 mg tablet 5 mg PO QAM 01/07/25 03/29/25 History aspirin 81 mg tablet,delayed 81 mg PO QAM 01/07/25 03/29/25 History release budesonide 9 mg tablet,delayed and 9 mg PO QAM 01/07/25 03/29/25 History extended release bupropion HCl 150 mg 24 hr tablet, 150 mg PO QAM smoking cessation 01/07/25 03/29/25 History extended release (Wellbutrin XL) famotidine 20 mg tablet 20 mg PO BID PRN Heartburn 01/07/25 03/29/25 History levothyroxine 50 mcg tablet 50 mcg PO QAM 01/07/25 03/29/25 History ondansetron 4 mg disintegrating 4 mg PO TID PRN NAUSEA/VOMITING 01/07/25 03/29/25 History tablet oxycodone 5 mg tablet 5 mg PO TID PRN Pain (Scale Score 01/07/25 03/29/25 History 4-6) triamcinolone acetonide 0.1 % 1 applic topical BID PRN SKIN 01/07/25 03/29/25 History topical cream IRRITATIONS ferrous sulfate 325 mg (65 mg 325 mg PO BID #60 tabs 01/10/25 03/29/25 Rx iron) tablet primidone 50 mg tablet 250 mg (5 x 50 mg) PO BID #900 tabs 01/13/25 03/29/25 Rx clonazepam 0.5 mg tablet 0.25 mg (1/2 x 0.5 mg) PO BID PRN 02/09/25 03/29/25 Rx anxiety #30 tabs gabapentin 100 mg capsule 200 mg (2 x 100 mg) PO TID #180 03/10/25 03/29/25 Rx caps metoprolol succinate 25 mg 50 mg PO HS 03/29/25 03/29/25 History tablet,extended release 24 hr Allergies Allergy/AdvReac Type Severity Reaction Status Date / Time No Known Allergies Allergy Verified 01/23/25 09:34 Past Med/Surg History Problem List (Updated 03/29/25 @ 22:14 by Mariusz Mares PA-C) Bloody diarrhea (Acute) Crohn's colitis (Acute) Leg edema, left Iron deficiency Proctitis Clostridioides difficile infection Bleeding per rectum C. difficile colitis (Acute) GI (gastrointestinal bleed) (Acute) Difficulty sleeping Chronic sinus infection Insomnia Frail elderly Underweight Paronychia of left middle finger Palpitation Essential tremor Generalized anxiety disorder Elevated TSH Right hip pain Osteoporosis Serum calcium elevated Elevated LFTs Fatigue Crohn's colitis Depression CAD (coronary artery disease) Hypercholesterolemia (Chronic) Medical History History of depression Hx of iron deficiency anemia Hx of gastroesophageal reflux (GERD) Hx of flexible sigmoidoscopy Hx of cervical cancer dx age 29 Essential tremor Hx of hypercholesterolemia Hx of insomnia no issues since being on Remeron Hx of compression fracture of spine x2, discovered w/CT at [facility] 12/2024 per pt. 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 Hyperlipidemia HTN (hypertension) Crohns disease CAD (coronary artery disease) 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, [facility]: Rojas to LAD, SARIKA to RCA, saphenous vein graft to ramus intermedius, saphenous vein graft to om 2 Hx SBO 08/2023, [facility], sx to correct 09/2023, [facility], sx to correct Positive culture findings in sputum pt unsure about this? Fever resolved Chronic pain of both shoulders Joint ache "in her back" Anxiety Intractable abdominal pain hx, resolved Substernal chest pain hx 2018, ended up with heart cath and CABG x4 Nausea rarely per pt. Failure of rotator cuff repair Tobacco abuse Diarrhea ongoing per pt. Surgical History Hx of repair of right rotator cuff Hx of repair of left rotator cuff Hx of colonoscopy Hx of tonsillectomy Hx of hysterectomy age 29, w/ bilat. salpingectomy History of bowel resection 08/2023, SBO resection, C 09/2023, exp. lap w/small bowel obstruction, repair internal hernia, repair enterotomy [facility] Hx of cardiac cath 2018, [facility], no stents, symptoms of fatigue-no heart attack > transferred to [facility] for CABG x4; f/u dr. zarate, [facility] History of reversal of ileostomy [facility], ~2022 H/O total colectomy [facility], ~2020 H/O ileostomy [facility], ~2020 History of coronary artery bypass graft 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, [facility]: Rojas to LAD, SARIKA to RCA, saphenous vein graft to ramus intermedius, saphenous vein graft to om 2; quadruple bypass; f/u dr. zarate, [facility] Family History Sister Breast cancer Colorectal cancer Crohn's disease Mother Colorectal cancer Anxiety Myocardial infarction Father Myocardial infarction Daughter Ulcerative colitis Other Cancer Heart disease Hypertension Denies family history of Ovarian cancer Social History Smoking Status: Current every day smoker Tobacco Type: Cigarettes Age Started Using Tobacco: 16; packs per day: 0.5; Cigarettes Per Day: 10; Second Hand Exposure: Yes (hx); Do You Dip or Chew Tobacco: No; Hx Alcohol Use: Yes Alcohol type: wine Hx Substance Use: Yes Last Used Substance Other:: occasional-last use 01/22/25 Preferred Language: Korean Communication Ability: Effective 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 Beliefs That Will Affect Care: None marital status: / Current Living Situation: Family Current Living Situation Comment: home with daughter current occupational status: retired How many Children do You have: 2 How many Children do You have Comment: 1 son is Feels Safe at Home: Yes Childhood Exposure to Second-Hand Smoke: No Diet: regular caffeine: Yes Dental Care, Regularly: Yes Physical Activity Frequency: 3-4 Times per Week Seatbelt Use: always Sunscreen Use: Yes Assistive Devices: Hearing Aid - Bilateral Review of Systems A total of 10 systems reviewed and were otherwise negative Physical Exam Vital Signs Vital Signs - 24 hr 03/29/25 18:00 03/29/25 20:42 03/29/25 20:42 Temperature 36.3 C L Temperature Source Temporal Artery Scan Pulse Rate 67 Pulse Rate [Apical] 71 Pulse Rhythm [Apical] Regular Pulse Strength [Apical] Normal Respiratory Rate 15 20 Respiratory Effort / Characteristics Non-Labored Spontaneous Respiratory Depth Normal Respiratory Pattern Regular Blood Pressure 113/67 Blood Pressure [Right Arm] 109/59 L Blood Pressure Mean 82 Blood Pressure Mean [Right Arm] 75 Blood Pressure Position [Right Arm] Pulse Oximetry 99 97 97 Oxygen Delivery Method Room Air Room Air Room Air Sepsis Recent Fever Within 48 Hours No Sepsis New/Unexplained Change in Mental Status N/A Sepsis Action Taken by Nursing No Action Required 03/29/25 22:12 Temperature Temperature Source Pulse Rate Pulse Rate [Apical] 71 Pulse Rhythm [Apical] Pulse Strength [Apical] Respiratory Rate 18 Respiratory Effort / Characteristics Non-Labored Spontaneous Respiratory Depth Normal Respiratory Pattern Regular Blood Pressure Blood Pressure [Right Arm] 102/48 L Blood Pressure Mean Blood Pressure Mean [Right Arm] 66 Blood Pressure Position [Right Arm] Semi-fowlers Pulse Oximetry 97 Oxygen Delivery Method Room Air Sepsis Recent Fever Within 48 Hours Sepsis New/Unexplained Change in Mental Status Sepsis Action Taken by Nursing VITAL SIGNS - Vital signs and nursing notes were reviewed. Stable and afebrile. GENERAL -74-year-old female appearing her stated age who is in no acute distress. Communicates well with provider and answers questions appropriately. SKIN - Without rashes. No meningeal or petechial rash. HEAD - NC/AT. EYES - Sclera anicteric. NECK - No nuchal rigidity. LUNGS -clear to auscultation. CARDIAC - RRR ABDOMEN - Abdominal contour normal without pulsations or visible masses. BS normoactive all four quadrants. Generalized abdominal tenderness to palpation. No palpable masses, hepatosplenomegaly, or ascites noted. EXTREMITIES - No clubbing or peripheral cyanosis. +5/5 strength noted in UE/LE bilaterally. NEUROLOGIC - Cranial nerves II through XII grossly intact. PSYCH -alert, oriented and pleasant on exam Course Administered Medications Discontinued Medications Hydromorphone HCl (Hydromorphone Inj 0.5 Mg/0.5 Ml Syr) 0.25 mg IV NOW STA Stop: 03/29/25 20:19 Last Admin: 03/29/25 20:47 Dose: 0.25 mg Documented By: BASHIR Sodium Chloride (Nss) 500 mls @ 500 mls/hr IV .Q1H ONE Stop: 03/29/25 21:18 Last Infusion: 03/29/25 22:12 Dose: Infused Documented By: Admin: 03/29/25 20:47 Dose: 500 mls/hr Documented By: BASHIR Ioversol (Optiray 320 100ml) 90 ml IV ONCE ONE Stop: 03/29/25 21:07 Last Admin: 03/29/25 21:07 Dose: 90 ml Documented By: STEPH Ondansetron HCl (Ondansetron Inj 2 Mg/Ml 2 Ml Vial) 4 mg IV NOW STA Stop: 03/29/25 18:10 Last Admin: 03/29/25 18:54 Dose: 4 mg Documented By: QGV Medical Decision Making Laboratory Data 03/29/25 18:45 03/29/25 18:45 Lab Results 03/29/25 03/29/25 Range/Units 18:23 18:45 WBC 10.65 (4.8-10.8) K/ul RBC 4.30 (4.20-5.40) M/uL Hgb 13.0 (12.0-16.0) g/dl Hct 37.8 (37.0-47.0) % MCV 87.9 (80.0-100.0) fL MCH 30.2 (25.0-34.0) pg MCHC 34.4 (32.0-36.0) g/dL RDW Std Deviation 47.6 H (36.4-46.3) fL RDW Coeff of Harish 14.8 H (11.5-14.5) % Plt Count 541 H (130-400) K/uL MPV 8.9 L (9.4-12.4) fL Immature Gran % (Auto) 0.2 % Neut % (Auto) 72.7 % Lymph % (Auto) 20.3 % Davie % (Auto) 6.0 % Eos % (Auto) 0.5 % Baso % (Auto) 0.3 % Neut # (Auto) 7.75 H (1.40-6.50) K/uL Lymph # (Auto) 2.16 (1.20-3.40) K/uL Davie # (Auto) 0.64 H (0.11-0.59) K/uL Eos # (Auto) 0.05 (0.00-0.50) K/uL Baso # (Auto) 0.03 (0.00-0.20) K/uL Immature Gran # (Auto) 0.02 (0.01-0.20) K/uL Sodium 132 L (136-145) mmol/L Potassium 3.6 (3.5-5.1) mmol/L Chloride 97 L (98-107) mmol/L Carbon Dioxide 22 (21-32) mmol/L Anion Gap 13 H (3-11) BUN 8 (6-23) mg/dl Creatinine 0.75 (0.6-1.2) mg/dl Est Cr Clr Drug Dosing 38.1 ml/min eGFR 84.01 BUN/Creatinine Ratio 10.7 (10-20) Glucose 90 (70-99(Fasting)) mg/dl Calcium 9.5 (8.6-10.3) mg/dl Total Bilirubin 0.3 (0.2-1.0) mg/dl AST 16 (13-39) U/L ALT 20 (7-52) U/L Alkaline Phosphatase 115 H (34-104) U/L Total Protein 7.7 (6.0-8.3) gm/dl Albumin 3.8 (3.4-5.0) gm/dl Globulin 3.9 (2.5-4.0) gm/dl Albumin/Globulin Ratio 1.0 (0.9-2) Lipase 18 (11-82) U/L HCG, Qual Cancelled Stl C. cayetanensis PCR Not Detected (NotDetected) Stool Rotavirus A PCR Not Detected (NotDetected) Stl Adenov F 40/41 PCR Not Detected (NotDetected) Stool Astrovirus (PCR) Not Detected (NotDetected) Stool Campylobacter PCR Not Detected (NotDetected) Stl C. diff Tox B Gene Positive Cdiff Gene A (Neg) Stl C.difficile Tox A&B Negative Cdiff Toxin (Negative) Stl C. diff [id number]-[id number] NEGATIVE Stool Cryptosporidium PCR Not Detected (NotDetected) Stl E.coli Shiga Tox PCR Not Detected (NotDetected) Stl Enterotoxigenic E PCR Not Detected (NotDetected) Stool EPEC (PCR) Not Detected (NotDetected) Stool EAEC (PCR) Not Detected (NotDetected) Stl E. histolytica PCR Not Detected (NotDetected) Stool Giardia Lamblia PCR Not Detected (NotDetected) Stool Salmonella PCR Not Detected (NotDetected) Stool Sapovirus (PCR) Not Detected (NotDetected) Stl P. shigelloides PCR Not Detected (NotDetected) Stl Shigella/EIEC PCR Not Detected (NotDetected) St Y.enterocolitica PCR Not Detected (NotDetected) Stool Vibrio (PCR) Not Detected (NotDetected) Stl Vibrio cholerae PCR Not Detected (NotDetected) Stl Norovirus GI/GII PCR Not Detected (NotDetected) Imaging Data Radiologist's Impression: Abdomen/Pelvis CT 03/29/25 20:18 Exam(s): CT ABDOMEN + PELVIS With Contrast IV Amt: 90 ml optiray 320 EXAM: CT Abdomen and Pelvis With Intravenous Contrast CLINICAL HISTORY: Reason for exam: Abd pain, bloody diarrhea, hx crohns. TECHNIQUE: Axial computed tomography images of the abdomen and pelvis with intravenous contrast. CTDI is 6.03 mGy and DLP is 217.39 mGy-cm. Automated exposure control was utilized for the study. A dose lowering technique was utilized adhering to the principles of ALARA. CONTRAST: Patient received 90 ml optiray 320 of IV contrast COMPARISON: 01/07/2025 atherosclerosis. FINDINGS: Lung bases: Unremarkable. ABDOMEN: Liver: Unremarkable. No mass. Gallbladder and bile ducts: Gallbladder not visualized, presumed contracted. No ductal dilation. Pancreas: Unremarkable. No mass. No ductal dilation. Spleen: Unremarkable. No splenomegaly. Adrenals: Unremarkable. No mass. Kidneys and ureters: Symmetric renal enhancement. No hydronephrosis. Stomach and bowel: Postoperative changes of the bowel. No bowel obstruction. As seen on prior exam, wall thickening within distal bowel extending to the anorectal junction concerning for proctocolitis which may be related to Crohn's. Upstream gaseous distention of colon. PELVIS: Appendix: Appendix not visualized. Bladder: Unremarkable. No mass. Reproductive: Hysterectomy. ABDOMEN and PELVIS: Intraperitoneal space: Unremarkable. No free air, significant free fluid, or fluid collection. Bones/joints: No acute fracture or dislocation. Chronic severe compression fracture at L1. Soft tissues: Unremarkable. Vasculature: Unremarkable. No abdominal aortic aneurysm. Lymph nodes: Unremarkable. No enlarged lymph nodes. IMPRESSION: As seen on prior exam, wall thickening within distal bowel extending to the anorectal junction concerning for proctocolitis which may be related to Crohn's. Upstream gaseous distention of colon. Electronically signed by: Kym London M.D. 03/29/25 21:50 PM MDM Narrative Patient was seen and evaluated as above in room D07 then room C04. Review was performed of nursing notes and vital signs. I did review pertinent previous visits and patient history. After obtaining a thorough history and physical examination the above work up was performed. Patient presents to us today noting diarrhea with blood and abdominal pain. She has history of Crohn's and this does feel similar to previous Crohn's flares. She notes she has had diarrhea essentially since December of this year. Options of care were discussed with the patient. IV access was established. Labs were drawn. She was given IV fluids. IV Zofran. IV Dilaudid. Labs reveal no leukocytosis or concerning anemia. There is mild hyponatremia 132. There is no evidence of kidney or liver failure. The C. difficile toxin B gene was positive however the reflex toxin A and B was negative. Remainder of the stool panel was negative. I did elect to obtain a CT scan of the abdomen/pelvis to further assess the patient's abdominal pain. It was felt that the benefit of the imaging outweighed risk. CT scan results as above. Wall thickening within distal bowel extending to the anorectal junction concerning for proctocolitis which may be related to Crohn's. Upstream gaseous distention of colon noted. The patient at this time I do believe would benefit from further evaluation and management in the patient setting. Case discussed with hospitalist service, Dr. Grant. Please refer to further documentation regarding her stay. In the evaluation and treatment of this patient the following differential diagnoses were entertained: Crohn's exacerbation, infectious colitis, ischemic colitis, electrolyte disturbance, volume depletion/dehydration, among others. Impression & Plan Crohn's colitis, Bloody diarrhea Discharge Plan Visit Data Chief Complaint: Abdominal Pain Stated Complaint: SEVERE CROHNS FLARE UP PAIN ED Provider: Oseas Jose ED Midlevel Provider: Mariusz Mares Discharge Problem: Crohn's colitis, Bloody diarrhea Patient Disposition: Admitted As Inpatient Condition: Good Forms Stand Alone Forms: My [facility] Prescriptions Prescriptions: No Action primidone 50 mg tablet 250 mg PO BID Qty: 900 0RF clonazepam 0.5 mg tablet 0.25 mg PO BID PRN (Reason: anxiety) Qty: 30 2RF gabapentin 100 mg capsule 200 mg PO TID Qty: 180 6RF acetaminophen [Tylenol Extra Strength] 500 mg Tablet 1,000 mg PO Q8H PRN (Reason: Pain) rosuvastatin 40 mg tablet 40 mg PO QAM dicyclomine 10 mg capsule 10 mg PO TID PRN (Reason: abdominal cramping) Entyvio 300 mg recon soln 300 mg IV UD Rx Instructions: every 8 weeks mirtazapine 15 mg tablet 15 mg PO HS escitalopram oxalate [Lexapro] 20 mg tablet 20 mg PO QAM nitroglycerin 0.4 mg tablet, sublingual 0.4 mg sublingual UD PRN (Reason: Chest Pain) amlodipine 5 mg tablet 5 mg PO QAM aspirin 81 mg Tablet,Delayed Release (Dr/Ec) 81 mg PO QAM triamcinolone acetonide 0.1 % Cream 1 applic TOPICAL BID PRN (Reason: SKIN IRRITATIONS) famotidine 20 mg Tablet 20 mg PO BID PRN (Reason: Heartburn) ondansetron 4 mg Tablet,Disintegrating 4 mg PO TID PRN (Reason: NAUSEA/VOMITING) oxycodone 5 mg Tablet 5 mg PO TID PRN (Reason: Pain (Scale Score 4-6)) bupropion HCl [Wellbutrin XL] 150 mg Tablet Extended Release 24 Hr 150 mg PO QAM budesonide 9 mg Tablet,Delayed And Ext.Release 9 mg PO QAM levothyroxine 50 mcg tablet 50 mcg PO QAM Rx Instructions: take 1 hour before breakfast ferrous sulfate 325 mg (65 mg iron) tablet 325 mg PO BID Qty: 60 0RF metoprolol succinate 25 mg tablet extended release 24 hr 50 mg PO HS Referrals Referrals: Ricardo Turcios DO [Primary Care Provider] -
[2025-03-29 20:37] LABS: Cdiff Toxin A+B Negative Cdiff Toxin (Negative)
[2025-03-29] MEDS: HYDROmorphone INJ 0.5 MG/0.5 ML SYR IV STA (20:47)
[2025-03-29] MEDS: SODIUM CHLORIDE 0.9% 500 ML IV ONE (20:47)
[2025-03-29] MEDS: OPTIRAY 320 100ml IV ONE (21:07)
[2025-03-29 21:46] LABS: Albumin Globulin Ratio 1.0 (0.9-2); Anion Gap 13.0 (3-11); Bilirubin,Total 0.3 mg/dl (0.2-1.0); Calcium 9.5 mg/dl (8.6-10.3); Carbon Dioxide 22.0 mmol/L (21-32); Chloride 97.0 mmol/L (98-107); Globulin 3.9 gm/dl (2.5-4.0); Potassium 3.6 mmol/L (3.5-5.1); Sodium 132.0 mmol/L (136-145)
--- NOTE | 2025-03-29 21:52 | CT Scan Report ---
Exam(s): CT ABDOMEN + PELVIS With Contrast IV Amt: 90 ml optiray 320 EXAM: CT Abdomen and Pelvis With Intravenous Contrast CLINICAL HISTORY: Reason for exam: Abd pain, bloody diarrhea, hx crohns. TECHNIQUE: Axial computed tomography images of the abdomen and pelvis with intravenous contrast. CTDI is 6.03 mGy and DLP is 217.39 mGy-cm. Automated exposure control was utilized for the study. A dose lowering technique was utilized adhering to the principles of ALARA. CONTRAST: Patient received 90 ml optiray 320 of IV contrast COMPARISON: 01/07/2025 atherosclerosis. FINDINGS: Lung bases: Unremarkable. ABDOMEN: Liver: Unremarkable. No mass. Gallbladder and bile ducts: Gallbladder not visualized, presumed contracted. No ductal dilation. Pancreas: Unremarkable. No mass. No ductal dilation. Spleen: Unremarkable. No splenomegaly. Adrenals: Unremarkable. No mass. Kidneys and ureters: Symmetric renal enhancement. No hydronephrosis. Stomach and bowel: Postoperative changes of the bowel. No bowel obstruction. As seen on prior exam, wall thickening within distal bowel extending to the anorectal junction concerning for proctocolitis which may be related to Crohn's. Upstream gaseous distention of colon. PELVIS: Appendix: Appendix not visualized. Bladder: Unremarkable. No mass. Reproductive: Hysterectomy. ABDOMEN and PELVIS: Intraperitoneal space: Unremarkable. No free air, significant free fluid, or fluid collection. Bones/joints: No acute fracture or dislocation. Chronic severe compression fracture at L1. Soft tissues: Unremarkable. Vasculature: Unremarkable. No abdominal aortic aneurysm. Lymph nodes: Unremarkable. No enlarged lymph nodes. IMPRESSION: As seen on prior exam, wall thickening within distal bowel extending to the anorectal junction concerning for proctocolitis which may be related to Crohn's. Upstream gaseous distention of colon. Electronically signed by: Kym London M.D. 03/29/25 21:50 PM
[2025-03-29 21:53] LABS: Alanine Aminotransferase 20.0 U/L (7-52); Alkaline Phosphatase 115.0 U/L (34-104); Blood Urea Nitrogen 8.0 mg/dl (6-23); Glucose 90.0 mg/dl (70-99(Fasting)); Lipase 18.0 U/L (11-82); Total Protein 7.7 gm/dl (6.0-8.3)
--- NOTE | 2025-03-29 22:56 | Emergency Department Note ---
ED Visit Note I was consulted by the Advanced Practice Provider Mariusz Mares PA-C. I performed a substantive portion of the visit including all aspects of medical decision making. .
[2025-03-29 23:10] LABS: Appearance Urine Clear (Clear); Bacteria Urine Automated None Seen (None Seen); Cast Urine Automated 0-2 /lpf (0-2); Epithelial Cell Urine Auto 0-2 /hpf (0-2); Glucose Urine UA Negative (Negative)
[2025-03-29] MEDS: ACETAMINOPHEN 10MG/ML Custom 500 MG in EMPTY BAG 0 ML IV STA (23:53)
--- NOTE | 2025-03-30 00:23 | History & Physical Report ---
Date of Service March 30, 2025 Assessment & Plan (1) Exacerbation of Crohn's disease of large intestine: (2) Proctocolitis: (3) Bloody diarrhea: (4) History of Clostridioides difficile colitis: Plan The patient is a 74-year-old female with past medical history including Crohn's disease, C. difficile colitis, iron deficiency, insomnia, underweight, essential tremor, generalized anxiety disorder, hypercalcemia, depression, CAD, and hypercholesterolemia. The patient presents to the emergency department with complaint of another Crohn's exacerbation, which consisted primarily of intermittent diarrheal episodes, and progressively worsening generalized weakness and fatigue, which she has had intermittently over the past several months. She was started on prednisone tapering schedule about 1 week ago, without significant improvement in symptoms. CT scan abdomen and pelvis ordered by the ED suggested proctocolitis. Patient received from the ED the following: Zofran 4 mg IV, Dilaudid 0.25 mg IV, normal saline 500 mL bolus, and Tylenol 500 mg IV. She was then referred for evaluation for admission to [facility]. Stool study was also positive for C. difficile gene positive, but toxin negative. She reports C. difficile in the past have been t reated with a medication close taking twice daily, which presumptively was Dificid. Exacerbation of Crohn's disease of large intestine/bloody diarrhea/proctocolitis- Full liquid diet as tolerated Hold oral prednisone Give Solu-Medrol 60 mg IV now, then 40 mg IV every 12 hours Cipro 400 mg IV every 12 hours Flagyl 500 mg IV every 8 hours Acetaminophen 1 g IV every 8 hours as needed mild pain or fever Oxycodone 5 mg p.o. 3 times daily as needed for moderate pain, as she was taking at home Morphine sulfate 4 mg IV every 3 hours as needed for severe pain Zofran 4 mg IV every 6 hours as needed NSS + KCl 20 mEq at 100 mL/h x 2 L Continue budesonide 5 mg p.o. every morning Of note, patient reports that she has been seen by [facility] gastroenterology, and she is considering starting Entyvio, and is also considering surgery for ileostomy. Consult gastroenterology Hypertension- Patient is relatively hypotensive at this time Hold amlodipine, metoprolol and aspirin Hydralazine 10 mg IV every 4 hours as needed for systolic blood pressure greater than 160 Depression/generalized anxiety disorder/essential tremor- Continue bupropion, mirtazapine, primidone and escitalopram Hold as needed clonazepam Hyperlipidemia- Continue rosuvastatin Hypothyroidism- Continue levothyroxine History of Present Illness Chief Complaint: The patient presents to the emergency department with complaint of another Crohn's exacerbation, which she has had intermittently over the past several months. She was started on prednisone tapering schedule about 1 week ago, without significant improvement in symptoms. CT scan abdomen and pelvis ordered by the ED suggested proctocolitis. Patient received from the ED the following: Zofran 4 mg IV, Dilaudid 0.25 mg IV, normal saline 500 mL bolus, and Tylenol 500 mg IV. She was then referred for evaluation for admission to [facility] service Primary Care Provider: Ricardo Turcios DO The patient is a 74-year-old female with past medical history including Crohn's disease, C. difficile colitis, iron deficiency, insomnia, underweight, essential tremor, generalized anxiety disorder, hypercalcemia, depression, CAD, and hypercholesterolemia. The patient presents to the emergency department with complaint of another Crohn's exacerbation, which consisted primarily of intermittent diarrheal episodes, and progressively worsening generalized weakness and fatigue, which she has had intermittently over the past several months. She was started on prednisone tapering schedule about 1 week ago, without significant improvement in symptoms. CT scan abdomen and pelvis ordered by the ED suggested proctocolitis. Patient received from the ED the following: Zofran 4 mg IV, Dilaudid 0.25 mg IV, normal saline 500 mL bolus, and Tylenol 500 mg IV. She was then referred for evaluation for admission to [facility] service. Stool study was also positive for C. difficile gene positive, but toxin negative. She reports C. difficile in the past have been treated with a medication close taking twice daily, which presumptively was Dificid. Allergies Allergy/AdvReac Type Severity Reaction Status Date / Time No Known Allergies Allergy Verified 01/23/25 09:34 Home Medications Medication Instructions Recorded Confirmed Type acetaminophen 500 mg tablet 1,000 mg PO Q8H PRN Pain 04/19/22 03/29/25 History (Tylenol Extra Strength) dicyclomine 10 mg capsule 10 mg PO TID PRN abdominal cramping 12/16/24 03/29/25 History escitalopram oxalate 20 mg tablet 20 mg PO QAM 12/16/24 03/29/25 History (Lexapro) mirtazapine 15 mg tablet 15 mg PO HS 12/16/24 03/29/25 History nitroglycerin 0.4 mg sublingual 0.4 mg sublingual UD PRN Chest Pain 12/16/24 03/29/25 History tablet rosuvastatin 40 mg tablet 40 mg PO QAM 12/16/24 03/29/25 History vedolizumab 300 mg intravenous 300 mg IV UD 12/16/24 03/29/25 History solution (Entyvio) amlodipine 5 mg tablet 5 mg PO QAM 01/07/25 03/29/25 History aspirin 81 mg tablet,delayed 81 mg PO QAM 01/07/25 03/29/25 History release budesonide 9 mg tablet,delayed and 9 mg PO QAM 01/07/25 03/29/25 History extended release bupropion HCl 150 mg 24 hr tablet, 150 mg PO QAM smoking cessation 01/07/25 03/29/25 History extended release (Wellbutrin XL) famotidine 20 mg tablet 20 mg PO BID PRN Heartburn 01/07/25 03/29/25 History levothyroxine 50 mcg tablet 50 mcg PO QAM 01/07/25 03/29/25 History ondansetron 4 mg disintegrating 4 mg PO TID PRN NAUSEA/VOMITING 01/07/25 03/29/25 History tablet oxycodone 5 mg tablet 5 mg PO TID PRN Pain (Scale Score 01/07/25 03/29/25 History 4-6) triamcinolone acetonide 0.1 % 1 applic topical BID PRN SKIN 01/07/25 03/29/25 History topical cream IRRITATIONS ferrous sulfate 325 mg (65 mg 325 mg PO BID #60 tabs 01/10/25 03/29/25 Rx iron) tablet primidone 50 mg tablet 250 mg (5 x 50 mg) PO BID #900 tabs 01/13/25 03/29/25 Rx clonazepam 0.5 mg tablet 0.25 mg (1/2 x 0.5 mg) PO BID PRN 02/09/25 03/29/25 Rx anxiety #30 tabs gabapentin 100 mg capsule 200 mg (2 x 100 mg) PO TID #180 03/10/25 03/29/25 Rx caps metoprolol succinate 25 mg 50 mg PO HS 03/29/25 03/29/25 History tablet,extended release 24 hr Past Med/Surg History Problem List (Updated 03/30/25 @ 03:41 by Edwin Grant MD) History of Clostridioides difficile colitis Proctocolitis Exacerbation of Crohn's disease of large intestine Bloody diarrhea (Acute) Crohn's colitis (Acute) Leg edema, left Iron deficiency Proctitis Clostridioides difficile infection Bleeding per rectum C. difficile colitis (Acute) GI (gastrointestinal bleed) (Acute) Difficulty sleeping Chronic sinus infection Insomnia Frail elderly Underweight Paronychia of left middle finger Palpitation Essential tremor Generalized anxiety disorder Elevated TSH Right hip pain Osteoporosis Serum calcium elevated Elevated LFTs Fatigue Crohn's colitis Depression CAD (coronary artery disease) Hypercholesterolemia (Chronic) Medical History History of depression Hx of iron deficiency anemia Hx of gastroesophageal reflux (GERD) Hx of flexible sigmoidoscopy Hx of cervical cancer dx age 29 Essential tremor Hx of hypercholesterolemia Hx of insomnia no issues since being on Remeron Hx of compression fracture of spine x2, discovered w/CT at [facility] 12/2024 per pt. 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 Hyperlipidemia HTN (hypertension) Crohns disease CAD (coronary artery disease) 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, [facility]: Rojas to LAD, SARIKA to RCA, saphenous vein graft to ramus intermedius, saphenous vein graft to om 2 Hx SBO 08/2023, [facility], sx to correct 09/2023, [facility], sx to correct Positive culture findings in sputum pt unsure about this? Fever resolved Chronic pain of both shoulders Joint ache "in her back" Anxiety Intractable abdominal pain hx, resolved Substernal chest pain hx 2018, ended up with heart cath and CABG x4 Nausea rarely per pt. Failure of rotator cuff repair Tobacco abuse Diarrhea ongoing per pt. Surgical History Hx of repair of right rotator cuff Hx of repair of left rotator cuff Hx of colonoscopy Hx of tonsillectomy Hx of hysterectomy age 29, w/ bilat. salpingectomy History of bowel resection 08/2023, SBO resection, [facility] 09/2023, exp. lap w/small bowel obstruction, repair internal hernia, repair enterotomy [facility] Hx of cardiac cath 2019, [facility], no stents, symptoms of fatigue-no heart attack > transferred to [facility] for CABG x4; f/u dr. zarate, the medical center cardio History of reversal of ileostomy [facility], ~2022 H/O total colectomy [facility], ~2020 H/O ileostomy [facility], ~2020 History of coronary artery bypass graft 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, [facility]: Rojas to LAD, SARIKA to RCA, saphenous vein graft to ramus intermedius, saphenous vein graft to om 2; quadruple bypass; f/u dr. zarate, the medical center cardio Family History Sister Breast cancer Colorectal cancer Crohn's disease Mother Colorectal cancer Anxiety Myocardial infarction Father Myocardial infarction Daughter Ulcerative colitis Other Cancer Heart disease Hypertension Denies family history of Ovarian cancer Social History Smoking Status: Current every day smoker Tobacco Type: Cigarettes Age Started Using Tobacco: 16; packs per day: 0.5; Cigarettes Per Day: 10; Second Hand Exposure: Yes (hx); Do You Dip or Chew Tobacco: No; Hx Alcohol Use: No Hx Substance Use: No Preferred Language: [place] Communication Ability: Effective 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 Beliefs That Will Affect Care: None marital status: / Current Living Situation: Family Current Living Situation Comment: home with daughter current occupational status: retired How many Children do You have: 2 How many Children do You have Comment: 1 son is Feels Safe at Home: Yes Safety Concerns: Feels Safe At This Time Childhood Exposure to Second-Hand Smoke: No Diet: regular caffeine: Yes Dental Care, Regularly: Yes Physical Activity Frequency: 3-4 Times per Week Seatbelt Use: always Sunscreen Use: Yes Assistive Devices: Hearing Aid - Bilateral Review of Systems Review of Systems: The patient denies chest pain, palpitations, shortness of breath, dyspnea on exertion, cough, lower extremity swelling, sore throat, fevers, chills, sweats, vomiting, blood in urine, dysuria, urinary frequency or urgency, lightheadedness, diz ziness, headache, loss of consciousness, focal weakness, numbness or tingling in arms or legs, back or neck pain, or night sweats. The review of systems is otherwise negative other than for that already noted above, and at least 10 systems have been reviewed. Physical Exam Physical Exam: The patient is awake, alert and oriented 3, well developed and well nourished, normocephalic and atraumatic, lying in bed and in no acute distress. HEENT--PERRL, EOMI, mucous membranes and oropharynx dry. Neck--supple. No JVD. No bruits. Thyroid normal, trachea midline, no adenopathy. Heart--normal S1 and S2. No murmurs, rubs or gallops. Lungs--clear bilaterally, no respiratory distress, no accessory muscle use. Abdomen--normal bowel sounds and soft. Nontender. Nondistended Extremities--no cyanosis or clubbing. No edema. There are good distal pulses b/l. Dermatologic--normal skin turgor, normal color, no abnormal lymph nodes, no rash. Neurologic--cranial nerves II through XII grossly intact. Rheumatologic--normal range of motion. Psychiatric--normal affect. Results & Data Results & Data Vital Signs (Past 12 Hours) Vital Signs Temp Pulse Pulse Resp BP BP Pulse Ox 03/29/25 22:54 67 03/29/25 22:12 71 18 102/48 L 97 03/29/25 20:42 97 03/29/25 20:42 71 20 109/59 L 97 03/29/25 18:00 36.3 C L 67 15 113/67 99 O2 Del Method 03/29/25 22:54 03/29/25 22:12 Room Air 03/29/25 20:42 Room Air 03/29/25 20:42 Room Air 03/29/25 18:00 Room Air Laboratory Results Laboratory Results WBC 10.65 K/ul (4.8-10.8) 03/29/25 18:45 RBC 4.30 M/uL (4.20-5.40) 03/29/25 18:45 Hgb 13.0 g/dl (12.0-16.0) 03/29/25 18:45 Hct 37.8 % (37.0-47.0) 03/29/25 18:45 MCV 87.9 fL (80.0-100.0) 03/29/25 18:45 MCH 30.2 pg (25.0-34.0) 03/29/25 18:45 MCHC 34.4 g/dL (32.0-36.0) 03/29/25 18:45 RDW Std Deviation 47.6 fL (36.4-46.3) H 03/29/25 18:45 RDW Coeff of Harish 14.8 % (11.5-14.5) H 03/29/25 18:45 Plt Count 541 K/uL (130-400) H 03/29/25 18:45 MPV 8.9 fL (9.4-12.4) L 03/29/25 18:45 Immature Gran % (Auto) 0.2 % 03/29/25 18:45 Neut % (Auto) 72.7 % 03/29/25 18:45 Lymph % (Auto) 20.3 % 03/29/25 18:45 [place] % (Auto) 6.0 % 03/29/25 18:45 Eos % (Auto) 0.5 % 03/29/25 18:45 Baso % (Auto) 0.3 % 03/29/25 18:45 Neut # (Auto) 7.75 K/uL (1.40-6.50) H 03/29/25 18:45 Lymph # (Auto) 2.16 K/uL (1.20-3.40) 03/29/25 18:45 [place] # (Auto) 0.64 K/uL (0.11-0.59) H 03/29/25 18:45 Eos # (Auto) 0.05 K/uL (0.00-0.50) 03/29/25 18:45 Baso # (Auto) 0.03 K/uL (0.00-0.20) 03/29/25 18:45 Immature Gran # (Auto) 0.02 K/uL (0.01-0.20) 03/29/25 18:45 Sodium 132 mmol/L (136-145) L 03/29/25 18:45 Potassium 3.6 mmol/L (3.5-5.1) 03/29/25 18:45 Chloride 97 mmol/L (98-107) L 03/29/25 18:45 Carbon Dioxide 22 mmol/L (21-32) 03/29/25 18:45 Anion Gap 13 (3-11) H 03/29/25 18:45 BUN 8 mg/dl (6-23) 03/29/25 18:45 Creatinine 0.75 mg/dl (0.6-1.2) 03/29/25 18:45 Est Cr Clr Drug Dosing 38.1 ml/min 03/29/25 18:45 eGFR 84.01 03/29/25 18:45 BUN/Creatinine Ratio 10.7 (10-20) 03/29/25 18:45 Glucose 90 mg/dl (70-99(Fasting)) 03/29/25 18:45 Calcium 9.5 mg/dl (8.6-10.3) 03/29/25 18:45 Total Bilirubin 0.3 mg/dl (0.2-1.0) 03/29/25 18:45 AST 16 U/L (13-39) 03/29/25 18:45 ALT 20 U/L (7-52) 03/29/25 18:45 Alkaline Phosphatase 115 U/L (34-104) H 03/29/25 18:45 C-Reactive Protein 8.41 mg/dl (0-0.5) H 03/29/25 18:45 Total Protein 7.7 gm/dl (6.0-8.3) 03/29/25 18:45 Albumin 3.8 gm/dl (3.4-5.0) 03/29/25 18:45 Globulin 3.9 gm/dl (2.5-4.0) 03/29/25 18:45 Albumin/Globulin Ratio 1.0 (0.9-2) 03/29/25 18:45 Lipase 18 U/L (11-82) 03/29/25 18:45 HCG, Qual Cancelled 03/29/25 18:45 Urine Color Yellow 03/29/25 22:30 Urine Appearance Clear (Clear) 03/29/25 22:30 Urine pH 6.0 (4.5-7.5) 03/29/25 22:30 Ur Specific H[place] 1.035 (1.000-1.030) H 03/29/25 22:30 Urine Protein Negative (Negative) 03/29/25 22:30 Urine Glucose (UA) Negative (Negative) 03/29/25 22: Urine Ketones Negative (Negative) 03/29/25: Urine Blood 1+ (Negative) H 03/29/25 22: Urine Nitrite Negative (Negative) 03/29/25 22: Urine Bilirubin Negative (Negative) 03/29/25 22: Urine Urobilinogen Negative (Negative) 03/29/25 22:30 Ur Leukocyte Esterase 1+ (Negative) H 03/29/25 22:30 Urine WBC (Auto) 11-20 /hpf (0-5) H 03/29/25 22:30 Urine RBC (Auto) 6-10 /hpf (0-2) H 03/29/25 22:30 U Hyaline Cast (Auto) 0-2 /lpf (0-2) 03/29/25 22:30 U Epithel Cells (Auto) 0-2 /hpf (0-2) 03/29/25 22:30 Urine Bacteria (Auto) None Seen (None Seen) 03/29/25 22:30 Urine Comment 03/29/25 22:30 Stl C. cayetanensis PCR Not Detected (NotDetected) 03/29/25 18:23 Stool Rotavirus A PCR Not Detected (NotDetected) 03/29/25 18:23 Stl Adenov F 40/41 PCR Not Detected (NotDetected) 03/29/25 18:23 Stool Astrovirus (PCR) Not Detected (NotDetected) 03/29/25 18:23 Stool Campylobacter PCR Not Detected (NotDetected) 03/29/25 18:23 Stl C. diff Tox B Gene Positive Cdiff Gene (Neg) A 03/29/25 18:23 Stl C.difficile Tox A&B Negative Cdiff Toxin (Negative) 03/29/25 18:23 Stl C. diff 027-[id number] NEGATIVE 03/29/25 18:23 Stool Cryptosporidium PCR Not Detected (NotDetected) 03/29/25 18:23 Stl E.coli Shiga Tox PCR Not Detected (NotDetected) 03/29/25 18:23 Stl Enterotoxigenic E PCR Not Detected (NotDetected) 03/29/25 18:23 Stool EPEC (PCR) Not Detected (NotDetected) 03/29/25 18:23 Stool EAEC (PCR) Not Detected (NotDetected) 03/29/25 18:23 Stl E. histolytica PCR Not Detected (NotDetected) 03/29/25 18:23 Stool Giardia Lamblia PCR Not Detected (NotDetected) 03/29/25 18:23 Stool Salmonella PCR Not Detected (NotDetected) 03/29/25 18:23 Stool Sapovirus (PCR) Not Detected (NotDetected) 03/29/25 18:23 Stl P. shigelloides PCR Not Detected (NotDetected) 03/29/25 18:23 Stl Shigella/EIEC PCR Not Detected (NotDetected) 03/29/25 18:23 St Y.enterocolitica PCR Not Detected (NotDetected) 03/29/25 18:23 Stool Vibrio (PCR) Not Detected (NotDetected) 03/29/25 18:23 Stl Vibrio cholerae PCR Not Detected (NotDetected) 03/29/25 18:23 Stl Norovirus GI/GII PCR Not Detected (NotDetected) 03/29/25 18:23 Impressions Abdomen/Pelvis CT 03/29/25 20:18 Exam(s): CT ABDOMEN + PELVIS With Contrast IV Amt: 90 ml optiray 320 EXAM: CT Abdomen and Pelvis With Intravenous Contrast CLINICAL HISTORY: Reason for exam: Abd pain, bloody diarrhea, hx crohns. TECHNIQUE: Axial computed tomography images of the abdomen and pelvis with intravenous contrast. CTDI is 6.03 mGy and DLP is 217.39 mGy-cm. Automated exposure control was utilized for the study. A dose lowering technique was utilized adhering to the principles of ALARA. CONTRAST: Patient received 90 ml optiray 320 of IV contrast COMPARISON: 01/07/2025 atherosclerosis. FINDINGS: Lung bases: Unremarkable. ABDOMEN: Liver: Unremarkable. No mass. Gallbladder and bile ducts: Gallbladder not visualized, presumed contracted. No ductal dilation. Pancreas: Unremarkable. No mass. No ductal dilation. Spleen: Unremarkable. No splenomegaly. Adrenals: Unremarkable. No mass. Kidneys and ureters: Symmetric renal enhancement. No hydronephrosis. Stomach and bowel: Postoperative changes of the bowel. No bowel obstruction. As seen on prior exam, wall thickening within distal bowel extending to the anorectal junction concerning for proctocolitis which may be related to Crohn's. Upstream gaseous distention of colon. PELVIS: Appendix: Appendix not visualized. Bladder: Unremarkable. No mass. Reproductive: Hysterectomy. ABDOMEN and PELVIS: Intraperitoneal space: Unremarkable. No free air, significant free fluid, or fluid collection. Bones/joints: No acute fracture or dislocation. Chronic severe compression fracture at L1. Soft tissues: Unremarkable. Vasculature: Unremarkable. No abdominal aortic aneurysm. Lymph nodes: Unremarkable. No enlarged lymph nodes. IMPRESSION: As seen on prior exam, wall thickening within distal bowel extending to the anorectal junction concerning for proctocolitis which may be related to Crohn's. Upstream gaseous distention of colon. Electronically signed by: Kym London M.D. 03/29/25 21:50 PM Code Status & VTE Plan Code Status Full code VTE Prophylaxis Plan VTE Prophylaxis will be ordered: Yes PG Care Time/CCT Total # of Minutes Spent Total Time Spent with Patient: Total time spent is greater than 50% in coordination of care (as documented) at patient's floor/unit and/or counseling patient: Coding Level of Care Code 84256 INT INP/OBS CARE 3/75MIN Diagnoses Exacerbation of Crohn's disease of large intestine K50.10 Proctocolitis K52.9 Bloody diarrhea R19.7 History of Clostridioides difficile colitis Z86.19
[2025-03-30] MEDS ORDERED: ACETAMINOPHEN 1000 MG/100 ML IV IV PRN (01:10)
[2025-03-30] MEDS ORDERED: MoRPHine SULFATE 4 MG/ML 1 ML CARP\\VIAL IV PRN (01:10)
[2025-03-30] MEDS: NSS + 20MEQ KCL 20 MEQ/1,000 ML BAG IV SCH (03:25)
[2025-03-30 05:09] LABS: Hematocrit (blood only) 35.5 % (37.0-47.0); Hemoglobin 11.5 g/dl (12.0-16.0); Immature Granulocytes # (auto) 0.05 K/uL (0.01-0.20); Immature Granulocytes % (auto) 0.6 %; Mean Corpuscular Hemoglobin 28.8 pg (25.0-34.0); Mean Corpuscular Volume 88.8 fL (80.0-100.0); Platelet Count 488 K/uL (130-400); RDW Standard Deviation 48.2 fL (36.4-46.3); Red Blood Count 4.00 M/uL (4.20-5.40); White Blood Count 8.64 K/ul (4.8-10.8)
[2025-03-30 05:26] LABS: Alanine Aminotransferase 16.0 U/L (7-52); Albumin Globulin Ratio 1.0 (0.9-2); Alkaline Phosphatase 97.0 U/L (34-104); Anion Gap 7.0 (3-11); Bilirubin,Total 0.3 mg/dl (0.2-1.0); Blood Urea Nitrogen 8.0 mg/dl (6-23); Calcium 9.0 mg/dl (8.6-10.3); Carbon Dioxide 23.0 mmol/L (21-32); Chloride 103.0 mmol/L (98-107); Creatinine Clr Calc Pharmacy 41.0 ml/min; Globulin 3.3 gm/dl (2.5-4.0); Glucose 115.0 mg/dl (70-99(Fasting)); Potassium 3.7 mmol/L (3.5-5.1); Sodium 133.0 mmol/L (136-145); Total Protein 6.5 gm/dl (6.0-8.3)
[2025-03-30] MEDS: metroNIDAZOLE 500 MG/100 ML BAG IV SCH (05:36)
[2025-03-30] MEDS: DICYCLOMINE HCL 10 MG CAP PO PRN (05:36)
[2025-03-30] MEDS: CIPROFLOXACIN / D5W 400 MG/200 ML BAG IV SCH (06:26)
[2025-03-30] MEDS: LEVOTHYROXINE SODIUM 50 MCG TABLET PO SCH (07:23)
[2025-03-30] MEDS: BUDESONIDE EC 3 MG CAP PO SCH (08:05)
[2025-03-30] MEDS: ESCITALOPRAM OXALATE 20 MG TAB PO SCH (08:06)
[2025-03-30] MEDS: GABAPENTIN 100 MG CAP PO SCH (08:07)
[2025-03-30] MEDS: ROSUVASTATIN CALCIUM 20 MG TAB PO SCH (08:07)
[2025-03-30] MEDS: PRIMIDONE 250 MG TAB PO SCH (08:07)
[2025-03-30] MEDS: SACCHAROMYCES BOULARDII 250 MG CAP PO SCH (08:08)
[2025-03-30] MEDS: HYDROmorphone INJ 1 MG/ML SYRINGE IV PRN (08:38)
[2025-03-30 08:43] LABS: Iron 41.0 mcg/dl (35-150)
--- NOTE | 2025-03-30 11:38 | Gastrointestinal Consultation ---
Date of Consultation March 30, 2025 Assessment & Plan (1) Crohn's colitis: Difficult management case in patient with intractable Crohn's. She had her last dose of Entyvio last week. She is scheduled to meet with CRS next week. I don't know that there is much we can add at this time. IV steroids may be more effective for her. I will add in mesalamine enemas although I don't know how much that will help. With her current circumstances and her lean to having an ileostomy it might be cruz to inquire about transfer to [place]. Her IBD doctor is there and she can see colorectal surgery. History of Present Illness Reason for Consultation: Crohn's flare Attending Physician: Abundio Manzano MD History of Present Illness 74 year old female who has been battling diarrhea since November. At that time she had c. diff which flared her Crohn's. She has had persistent diarrhea with incontinence and is tired of it so she is seeing colorectal surgery next week. She has been started on oral prednisone by her IBD doc in [place] but that has not really helped. She feels exhausted and says she cannot go on like this. She does have pain when she needs to have a bowel movement and she is seeing blood. Allergies Allergy/AdvReac Type Severity Reaction Status Date / Time No Known Allergies Allergy Verified 01/23/25 09:34 Home Medications Medication Instructions Recorded Confirmed Type acetaminophen 500 mg tablet 1,000 mg PO Q8H PRN Pain 04/19/22 03/29/25 History (Tylenol Extra Strength) dicyclomine 10 mg capsule 10 mg PO TID PRN abdominal cramping 12/16/24 03/29/25 History escitalopram oxalate 20 mg tablet 20 mg PO QAM 12/16/24 03/29/25 History (Lexapro) mirtazapine 15 mg tablet 15 mg PO HS 12/16/24 03/29/25 History nitroglycerin 0.4 mg sublingual 0.4 mg sublingual UD PRN Chest Pain 12/16/24 03/29/25 History tablet rosuvastatin 40 mg tablet 40 mg PO QAM 12/16/24 03/29/25 History vedolizumab 300 mg intravenous 300 mg IV UD 12/16/24 03/29/25 History solution (Entyvio) amlodipine 5 mg tablet 5 mg PO QAM 01/07/25 03/29/25 History aspirin 81 mg tablet,delayed 81 mg PO QAM 01/07/25 03/29/25 History release budesonide 9 mg tablet,delayed and 9 mg PO QAM 01/07/25 03/29/25 History extended release bupropion HCl 150 mg 24 hr tablet, 150 mg PO QAM smoking cessation 01/07/25 03/29/25 History extended release (Wellbutrin XL) famotidine 20 mg tablet 20 mg PO BID PRN Heartburn 01/07/25 03/29/25 History levothyroxine 50 mcg tablet 50 mcg PO QAM 01/07/25 03/29/25 History ondansetron 4 mg disintegrating 4 mg PO TID PRN NAUSEA/VOMITING 01/07/25 03/29/25 History tablet oxycodone 5 mg tablet 5 mg PO TID PRN Pain (Scale Score 01/07/25 03/29/25 History 4-6) triamcinolone acetonide 0.1 % 1 applic topical BID PRN SKIN 01/07/25 03/29/25 History topical cream IRRITATIONS ferrous sulfate 325 mg (65 mg 325 mg PO BID #60 tabs 01/10/25 03/29/25 Rx iron) tablet primidone 50 mg tablet 250 mg (5 x 50 mg) PO BID #900 tabs 01/13/25 03/29/25 Rx clonazepam 0.5 mg tablet 0.25 mg (1/2 x 0.5 mg) PO BID PRN 02/09/25 03/29/25 Rx anxiety #30 tabs gabapentin 100 mg capsule 200 mg (2 x 100 mg) PO TID #180 03/10/25 03/29/25 Rx caps metoprolol succinate 25 mg 50 mg PO HS 03/29/25 03/29/25 History tablet,extended release 24 hr Patient History Medical History History of depression Hx of iron deficiency anemia Hx of gastroesophageal reflux (GERD) Hx of flexible sigmoidoscopy Hx of cervical cancer dx age 29 Essential tremor Hx of hypercholesterolemia Hx of insomnia no issues since being on Remeron Hx of compression fracture of spine x2, discovered w/CT at [facility] 12/2024 per pt. 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 Hyperlipidemia HTN (hypertension) Crohns disease CAD (coronary artery disease) 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, [facility]: Rojas to LAD, SARIKA to RCA, saphenous vein graft to ramus intermedius, saphenous vein graft to om 2 Hx SBO 08/2023, [facility] [place]x [place]23, [facility], sx to correct Positive culture findings in sputum pt unsure about this? Fever resolved Chronic pain of both shoulders Joint ache "in her back" Anxiety Intractable abdominal pain hx, resolved Substernal chest pain hx 2018, ended up with heart cath and CABG x4 Nausea rarely per pt. Failure of rotator cuff repair Tobacco abuse Diarrhea ongoing per pt. Surgical History Hx of repair of right rotator cuff Hx of repair of left rotator cuff Hx of colonoscopy Hx of tonsillectomy Hx of hysterectomy age 29, w/ bilat. salpingectomy History of bowel resection 08/2023, SBO resection, C 09/2023, exp. lap w/small bowel obstruction, repair internal hernia, repair enterotomy [facility] Hx of cardiac cath 2019, [facility], no stents, symptoms of fatigue-no heart attack > [place] [facility] [place] x4; f/u dr. zarate, [facility] cardio History of reversal of ileostomy [facility] [place], ~[place]22 H/[place] total colectomy [facility] [place] H/[place] ileostomy [facility] [place] History of coronary artery bypass graft 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, [facility]: Rojas to LAD, SARIKA to RCA, saphenous vein graft to ramus intermedius, saphenous vein graft to om 2; quadruple bypass; f/u dr. zarate, [facility] cardio Family History Sister Breast cancer Colorectal cancer Crohn's disease Mother Colorectal cancer Anxiety Myocardial infarction Father Myocardial infarction Daughter Ulcerative colitis Other Cancer Heart disease Hypertension Denies family history of Ovarian cancer Social History Smoking Status: Current every day smoker Tobacco Type: Cigarettes Age Started Using Tobacco: 16; packs per day: 0.5; Cigarettes Per Day: 10; Second Hand Exposure: Yes (hx); Do You Dip or Chew Tobacco: No; Hx Alcohol Use: No Hx Substance Use: No Preferred Language: German Communication Ability: Effective 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 Beliefs That Will Affect Care: None marital status: / Current Living Situation: Family Current Living Situation Comment: home with daughter current occupational status: retired How many Children do You have: 2 How many Children do You have Comment: 1 son is Feels Safe at Home: Yes Safety Concerns: Feels Safe At This Time Childhood Exposure to Second-Hand Smoke: No Diet: regular caffeine: Yes Dental Care, Regularly: Yes Physical Activity Frequency: 3-4 Times per Week Seatbelt Use: always Sunscreen Use: Yes Assistive Devices: Hearing Aid - Bilateral Review of Systems Review of Systems: All systems reviewed & are unremarkable except as noted in HPI & below Physical Exam Constitutional: WD/WN, vitals as above + ill appearing and + thin Neck: trachea midline, no thyromegaly Respiratory: normal respiratory effort, lungs clear to auscultation Cardiovascular: RRR, no murmur, no edema Gastrointestinal (Abdomen): normal bowel sounds, soft, nontender, no hepatosplenomegaly Results & Data Vital Signs (Past 12 Hours) Vital Signs Temp Pulse Pulse Resp BP BP Pulse Ox 03/30/25 08:03 63 20 97/41 L 99 03/30/25 07:55 63 03/30/25 04:30 56 L 16 97/52 L 93 03/30/25 03:57 60 16 105/52 L 95 03/30/25 02:00 61 113/60 96 03/30/25 01:53 36.8 C 57 L 16 98/60 L 94 09/11/25 00:00 61 16 112/53 L 94 03/29/25 23:50 61 16 111/60 94 O2 Del Method 03/30/25 08:03 Room Air 03/30/25 07:55 03/30/25 04:30 Room Air 03/30/25 03:57 Room Air 03/30/25 02:00 Room Air 03/30/25 01:53 Room Air 03/30/25 00:00 Room Air 03/29/25 23:50 Room Air Laboratory Results 03/30/25 03/29/25 03/29/25 Range/Units 04:00 23:45 22:30 WBC 8.64 (4.8-10.8) K/ul RBC 4.00 L (4.20-5.40) M/uL Hgb 11.5 L (12.0-16.0) g/dl Hct 35.5 L (37.0-47.0) % MCV 88.8 (80.0-100.0) fL MCH 28.8 (25.0-34.0) pg MCHC 32.4 (32.0-36.0) g/dL RDW Std Deviation 48.2 H (36.4-46.3) fL RDW Coeff of Harish 14.9 H (11.5-14.5) % Plt Count 488 H (130-400) K/uL MPV 9.2 L (9.4-12.4) fL Immature Gran % (Auto) 0.6 % Neut % (Auto) 77.1 % Lymph % (Auto) 16.3 % [place] % (Auto) 4.9 % Eos % (Auto) 0.8 % Baso % (Auto) 0.3 % Neut # (Auto) 6.66 H (1.40-6.50) K/uL Lymph # (Auto) 1.41 (1.20-3.40) K/uL [place] # (Auto) 0.42 (0.11-0.59) K/uL Eos # (Auto) 0.07 (0.00-0.50) K/uL Baso # (Auto) 0.03 (0.00-0.20) K/uL Immature Gran # (Auto) 0.05 (0.01-0.20) K/uL Sodium 133 L (136-145) mmol/L Potassium 3.7 (3.5-5.1) mmol/L Chloride 103 (98-107) mmol/L Carbon Dioxide 23 (21-32) mmol/L Anion Gap 7 (3-11) BUN 8 (6-23) mg/dl Creatinine 0.67 (0.6-1.2) mg/dl Est Cr Clr Drug Dosing 41.0 ml/min eGFR 92.23 BUN/Creatinine Ratio 11.9 (10-20) Glucose 115 H (70-99(Fasting)) mg/dl Calcium 9.0 (8.6-10.3) mg/dl Iron 41 (35-150) mcg/dl Total Bilirubin 0.3 (0.2-1.0) mg/dl AST 13 (13-39) U/L ALT 16 (7-52) U/L Alkaline Phosphatase 97 (34-104) U/L C-Reactive Protein (0-0.5) mg/dl Total Protein 6.5 (6.0-8.3) gm/dl Albumin 3.2 L (3.4-5.0) gm/dl Globulin 3.3 (2.5-4.0) gm/dl Albumin/Globulin Ratio 1.0 (0.9-2) Lipase (11-82) U/L HCG, Qual Urine Color Yellow Urine Appearance Clear (Clear) Urine pH 6.0 (4.5-7.5) Ur Specific [place] 1.035 H (1.000-1.030) Urine Protein Negative (Negative) Urine Glucose (UA) Negative (Negative) Urine Ketones Negative (Negative) Urine Blood 1+ H (Negative) Urine Nitrite Negative (Negative) Urine Bilirubin Negative (Negative) Urine Urobilinogen Negative (Negative) Ur Leukocyte Esterase 1+ H (Negative) Urine WBC (Auto) 11-20 H (0-5) /hpf Urine RBC (Auto) 6-10 H (0-2) /hpf U Hyaline Cast (Auto) 0-2 (0-2) /lpf U Epithel Cells (Auto) 0-2 (0-2) /hpf Urine Bacteria (Auto) None Seen (None Seen) Urine Comment Stool Calprotectin Pending Stl C. cayetanensis PCR (NotDetected) Stool Rotavirus A PCR (NotDetected) Stl Adenov F 40/41 PCR (NotDetected) Stool Astrovirus (PCR) (NotDetected) Stool Campylobacter PCR (NotDetected) Stl C. diff Tox B Gene (Neg) Stl C.difficile Tox A&B (Negative) Stl C. diff 027-NAP1-BI Stool Cryptosporidium PCR (NotDetected) Stl E.coli Shiga Tox PCR (NotDetected) Stl Enterotoxigenic E PCR (NotDetected) Stool EPEC (PCR) (NotDetected) Stool EAEC (PCR) (NotDetected) Stl E. histolytica PCR (NotDetected) Stool Giardia Lamblia PCR (NotDetected) Stool Salmonella PCR (NotDetected) Stool Sapovirus (PCR) (NotDetected) Stl P. shigelloides PCR (NotDetected) Stl Shigella/EIEC PCR (NotDetected) St Y.enterocolitica PCR (NotDetected) Stool Vibrio (PCR) (NotDetected) Stl Vibrio cholerae PCR (NotDetected) Stl Norovirus GI/GII PCR (NotDetected) 03/29/25 03/29/25 Range/Units 18:45 18:23 WBC 10.65 (4.8-10.8) K/ul RBC 4.30 (4.20-5.40) M/uL Hgb 13.0 (12.0-16.0) g/dl Hct 37.8 (37.0-47.0) % MCV 87.9 (80.0-100.0) fL MCH 30.2 (25.0-34.0) pg MCHC 34.4 (32.0-36.0) g/dL RDW Std Deviation 47.6 H (36.4-46.3) fL RDW Coeff of Harish 14.8 H (11.5-14.5) % Plt Count 541 H (130-400) K/uL MPV 8.9 L (9.4-12.4) fL Immature Gran % (Auto) 0.2 % Neut % (Auto) 72.7 % Lymph % (Auto) 20.3 % [place] % (Auto) 6.0 % Eos % (Auto) 0.5 % Baso % (Auto) 0.3 % Neut # (Auto) 7.75 H (1.40-6.50) K/uL Lymph # (Auto) 2.16 (1.20-3.40) K/uL [place] # (Auto) 0.64 H (0.11-0.59) K/uL Eos # (Auto) 0.05 (0.00-0.50) K/uL Baso # (Auto) 0.03 (0.00-0.20) K/uL Immature Gran # (Auto) 0.02 (0.01-0.20) K/uL Sodium 132 L (136-145) mmol/L Potassium 3.6 (3.5-5.1) mmol/L Chloride 97 L (98-107) mmol/L Carbon Dioxide 22 (21-32) mmol/L Anion Gap 13 H (3-11) BUN 8 (6-23) mg/dl Creatinine 0.75 (0.6-1.2) mg/dl Est Cr Clr Drug Dosing 38.1 ml/min eGFR 84.01 BUN/Creatinine Ratio 10.7 (10-20) Glucose 90 (70-99(Fasting)) mg/dl Calcium 9.5 (8.6-10.3) mg/dl Iron (35-150) mcg/dl Total Bilirubin 0.3 (0.2-1.0) mg/dl AST 16 (13-39) U/L ALT 20 (7-52) U/L Alkaline Phosphatase 115 H (34-104) U/L C-Reactive Protein 8.41 H (0-0.5) mg/dl Total Protein 7.7 (6.0-8.3) gm/dl Albumin 3.8 (3.4-5.0) gm/dl Globulin 3.9 (2.5-4.0) gm/dl Albumin/Globulin Ratio 1.0 (0.9-2) Lipase 18 (11-82) U/L HCG, Qual Cancelled Urine Color Urine Appearance (Clear) Urine pH (4.5-7.5) Ur Specific [place] (1.000-1.030) Urine Protein (Negative) Urine Glucose (UA) (Negative) Urine Ketones (Negative) Urine Blood (Negative) Urine Nitrite (Negative) Urine Bilirubin (Negative) Urine Urobilinogen (Negative) Ur Leukocyte Esterase (Negative) Urine WBC (Auto) (0-5) /hpf Urine RBC (Auto) (0-2) /hpf U Hyaline Cast (Auto) (0-2) /lpf U Epithel Cells (Auto) (0-2) /hpf Urine Bacteria (Auto) (None Seen) Urine Comment Stool Calprotectin Stl C. cayetanensis PCR Not Detected (NotDetected) Stool Rotavirus A PCR Not Detected (NotDetected) Stl Adenov F 40/41 PCR Not Detected (NotDetected) Stool Astrovirus (PCR) Not Detected (NotDetected) Stool Campylobacter PCR Not Detected (NotDetected) Stl C. diff Tox B Gene Positive Cdiff Gene A (Neg) Stl C.difficile Tox A&B Negative Cdiff Toxin (Negative) Stl C. diff 027-NAP1-BI NEGATIVE Stool Cryptosporidium PCR Not Detected (NotDetected) Stl E.coli Shiga Tox PCR Not Detected (NotDetected) Stl Enterotoxigenic E PCR Not Detected (NotDetected) Stool EPEC (PCR) Not Detected (NotDetected) Stool EAEC (PCR) Not Detected (NotDetected) Stl E. histolytica PCR Not Detected (NotDetected) Stool Giardia Lamblia PCR Not Detected (NotDetected) Stool Salmonella PCR Not Detected (NotDetected) Stool Sapovirus (PCR) Not Detected (NotDetected) Stl P. shigelloides PCR Not Detected (NotDetected) Stl Shigella/EIEC PCR Not Detected (NotDetected) St Y.enterocolitica PCR Not Detected (NotDetected) Stool Vibrio (PCR) Not Detected (NotDetected) Stl Vibrio cholerae PCR Not Detected (NotDetected) Stl Norovirus GI/GII PCR Not Detected (NotDetected) Diagnostic Findings Abdomen/Pelvis CT 03/29/25 20:18 Exam(s): CT ABDOMEN + PELVIS With Contrast IV Amt: 90 ml optiray 320 EXAM: CT Abdomen and Pelvis With Intravenous Contrast CLINICAL HISTORY: Reason for exam: Abd pain, bloody diarrhea, hx crohns. TECHNIQUE: Axial computed tomography images of the abdomen and pelvis with intravenous contrast. CTDI is 6.03 mGy and DLP is 217.39 mGy-cm. Automated exposure control was utilized for the study. A dose lowering technique was utilized adhering to the principles of ALARA. CONTRAST: Patient received 90 ml optiray 320 of IV contrast COMPARISON: 01/07/2025 atherosclerosis. FINDINGS: Lung bases: Unremarkable. ABDOMEN: Liver: Unremarkable. No mass. Gallbladder and bile ducts: Gallbladder not visualized, presumed contracted. No ductal dilation. Pancreas: Unremarkable. No mass. No ductal dilation. Spleen: Unremarkable. No splenomegaly. Adrenals: Unremarkable. No mass. Kidneys and ureters: Symmetric renal enhancement. No hydronephrosis. Stomach and bowel: Postoperative changes of the bowel. No bowel obstruction. As seen on prior exam, wall thickening within distal bowel extending to the anorectal junction concerning for proctocolitis which may be related to Crohn's. Upstream gaseous distention of colon. PELVIS: Appendix: Appendix not visualized. Bladder: Unremarkable. No mass. Reproductive: Hysterectomy. ABDOMEN and PELVIS: Intraperitoneal space: Unremarkable. No free air, significant free fluid, or fluid collection. Bones/joints: No acute fracture or dislocation. Chronic severe compression fracture at L1. Soft tissues: Unremarkable. Vasculature: Unremarkable. No abdominal aortic aneurysm. Lymph nodes: Unremarkable. No enlarged lymph nodes. IMPRESSION: As seen on prior exam, wall thickening within distal bowel extending to the anorectal junction concerning for proctocolitis which may be related to Crohn's. Upstream gaseous distention of colon. Electronically signed by: Kym London M.D. 03/29/25 21:50 PM
[2025-03-30] MEDS ORDERED: methylPREDNISolone 10 mg/mL (For Ped Dose < 7mg) IV SCH (12:30)
--- NOTE | 2025-03-30 12:40 | Hospitalist Progress Note ---
Date of Service March 30, 2025 Assessment & Plan (1) Exacerbation of Crohn's disease of large intestine: Plan: Continue parenteral steroid therapy. Appreciate GI consultation and recommendations. Mesalamine enemas have been ordered. She may need transfer to [facility] [place] where her primary business coordinator is. Parenteral Dilaudid as needed for pain control (2) Proctocolitis: Plan: Seen on abdomen CT scan from Crohn's disease (3) History of Clostridioides difficile colitis: Plan: Gene is positive. Toxin negative. Will follow (4) Hypercholesterolemia: Plan: Stable. Continue statin therapy (5) Primary hypothyroidism: Plan: Stable. Continue current replacement therapy Plan To be determined by clinical course Admission and Anticipated Discharge Date Admission Date: March 30, 2025 Subjective Alert and oriented. No distress. She is currently on intravenous antibiotics and parenteral steroid therapy. GI consultation noted. Mesalamine enemas have been added. Currently on Dilaudid for abdominal pain control. Serum iron is low normal at 41. She may eventually need transfer back down to [facility] where her primary business coordinator is. Review of Systems 2 Review of Systems: Constitutionalno fever or chills ENTno blurred vision, no double vision, no epistaxis, no sore throat Respiratoryno cough, no wheezing, no shortness of breath Cardiacno palpitations, no chest pain, no syncope GIintermittent nausea. Denies vomiting. Stools are loose and occasionally bloody GUno urinary retention, no urinary incontinence, no dysuria, no hematuria Musculoskeletalno joint pain, no muscle tenderness Skinno bruising, no rashes, no pruritus Neurono isolated weakness, no paresthesia, no weakness Psychno depression, no anxiety Physical Exam 2 Physical Exam: General-alert and oriented x3, no fever, no chills HEENT-head atraumatic and normocephalic, pupils equal and reactive to light, extraocular muscles intact Neck-no lymphadenopathy or thyromegaly, trachea midline Chest-clear to auscultation. No rales, wheezing or rhonchi Cardiac-regular rate and rhythm, normal S1 and S2 Abdomen-normal bowel sounds, no hepatosplenomegaly. Mild diffuse abdominal tenderness. No palpable masses. No rebound or guarding Extremities-no cyanosis, clubbing, or edema Neuro-cranial nerves II through XII intact, motor and sensory function within normal limits, strength symmetrical, no focal deficits Psych-normal affect, normal mood Results & Data Results & Data Vital Signs (Past 12 Hours) Vital Signs Temp Pulse Pulse Resp BP BP Pulse Ox 03/30/25 12:18 64 18 110/53 L 97 03/30/25 08:03 63 20 97/41 L 99 03/30/25 07:55 63 03/30/25 04:30 56 L 16 97/52 L 93 03/30/25 03:57 60 16 105/52 L 95 03/30/25 02:00 61 113/60 96 03/30/25 01:53 36.8 C 57 L 16 98/60 L 94 O2 Del Method 03/30/25 12:18 Room Air 03/30/25 08:03 Room Air 03/30/25 07:55 03/30/25 04:30 Room Air 03/30/25 03:57 Room Air 03/30/25 02:00 Room Air 03/30/25 01:53 Room Air Laboratory Results 03/30/25 04:00 03/30/25 04:00 PG Care Time/CCT Total # of Minutes Spent Total Time Spent with Patient: Total time spent is greater than 50% in coordination of care (as documented) at patient's floor/unit and/or counseling patient: Coding Level of Care Code 30275 SUB INP/OBS CARE 3/50MIN Diagnoses Exacerbation of Crohn's disease of large intestine K50.10 Proctocolitis K52.9 History of Clostridioides difficile colitis Z86.19 Hypercholesterolemia E78.00 Primary hypothyroidism E03.9
[2025-03-30] MEDS: ACETAMINOPHEN 500 MG TAB PO PRN (20:23)
[2025-03-30] MEDS: MIRTAZAPINE TAB 15 MG TAB PO SCH (20:24)
[2025-03-30] MEDS: MESALAMINE 4 GM/60 ML ENEMA PR SCH (20:30)
[2025-03-31] MEDS: FAMOTIDINE 20MG IV PUSH 20 MG/5 ML SYR IV STA (01:01)
[2025-03-31 07:20] LABS: Hematocrit (blood only) 34.2 % (37.0-47.0); Hemoglobin 11.1 g/dl (12.0-16.0); Immature Granulocytes # (auto) 0.02 K/uL (0.01-0.20); Immature Granulocytes % (auto) 0.4 %; Mean Corpuscular Hemoglobin 29.6 pg (25.0-34.0); Mean Corpuscular Volume 91.2 fL (80.0-100.0); Platelet Count 436 K/uL (130-400); RDW Standard Deviation 50.7 fL (36.4-46.3); Red Blood Count 3.75 M/uL (4.20-5.40); White Blood Count 4.90 K/ul (4.8-10.8)
[2025-03-31 07:39] LABS: Alanine Aminotransferase 11.0 U/L (7-52); Albumin Globulin Ratio 0.9 (0.9-2); Alkaline Phosphatase 87.0 U/L (34-104); Anion Gap 4.0 (3-11); Bilirubin,Total 0.2 mg/dl (0.2-1.0); Blood Urea Nitrogen 4.0 mg/dl (6-23); Calcium 8.4 mg/dl (8.6-10.3); Carbon Dioxide 26.0 mmol/L (21-32); Chloride 107.0 mmol/L (98-107); Creatinine Clr Calc Pharmacy 55.7 ml/min; Globulin 2.8 gm/dl (2.5-4.0); Glucose 129.0 mg/dl (70-99(Fasting)); Magnesium 1.7 mg/dl (1.7-2.4); Potassium 4.0 mmol/L (3.5-5.1); Sodium 137.0 mmol/L (136-145); Total Protein 5.3 gm/dl (6.0-8.3)
[2025-03-31] MEDS: LACTATED RINGER'S 1,000 ML IV SCH (10:03)
[2025-03-31] MEDS: VANCOMYCIN HCL 125 MG/2.5ML SOLN PO SCH (10:03)
[2025-03-31] MEDS: CHERRY SYRUP 5 ML UDP PO SCH (10:03)
[2025-03-31] MEDS: clonazePAM 0.25 MG OD TAB PO PRN (11:46)
[2025-03-31] MEDS: HYDROmorphone INJ 0.5 MG/0.5 ML SYR IV STA (11:51)
--- NOTE | 2025-03-31 14:14 | Hospitalist Progress Note ---
Date of Service March 31, 2025 Assessment & Plan (1) Exacerbation of Crohn's disease of large intestine: Plan: Doing better. Continue IV steroids and IV antibiotics. Mesalamine enemas started. Possible transfer to tertiary care recommended by Liss right now she seems to be feeling betterso while she likely needs tertiary GI and colorectal follow-up, at this point she hopefully will not need acute transfer. (2) Proctocolitis: Plan: Seen on abdomen CT scan from Crohn's disease (3) History of Clostridioides difficile colitis: Plan: Gene is positive. Toxin negative. Will follow. Given Cipro and Flagyl for Crohn's flare, and given that Flagyl is not reliable for treating/preventing C. difficile, and given that it sounds like her Crohns flare really started with C. difficile colitisWill prophylax with 125 of Vanco daily. (4) Hypercholesterolemia: Plan: Stable. Continue statin therapy (5) Primary hypothyroidism: Plan: Stable. Continue current replacement therapy Plan To be determined by clinical course Yesterday GI recommended transfer to tertiary but given the complexity of her situation, fortunately today she is starting to feel better, so it might be that we can reign in the current flareup here and have follow-up outpatient at tertiary. Admission and Anticipated Discharge Date Admission Date: March 30, 2025 Results & Data Results & Data Vital Signs (Past 12 Hours) Vital Signs Temp Pulse Pulse Resp BP BP Pulse Ox 03/31/25 11:34 98.1 F 52 L 18 95/54 L 97 03/31/25 07:43 97.9 F 49 L 18 95/50 L 96 03/31/25 05:50 52 L 03/31/25 03:08 97.7 F 62 18 107/63 95 O2 Del Method 03/31/25 11:34 Room Air 03/31/25 07:43 Room Air 03/31/25 05:50 03/31/25 03:08 Room Air PG Care Time/CCT Total # of Minutes Spent Total Time Spent with Patient: Total time spent is greater than 50% in coordination of care (as documented) at patient's floor/unit and/or counseling patient: Coding Level of Care Code 78281 SUB INP/OBS CARE 3/50MIN Diagnoses Exacerbation of Crohn's disease of large intestine K50.10 Proctocolitis K52.9 History of Clostridioides difficile colitis Z86.19 Hypercholesterolemia E78.00 Primary hypothyroidism E03.9
--- NOTE | 2025-03-31 14:15 | Billing Data ---
Date of Service March 31, 2025 Coding Level of Care Code 43960 SUB INP/OBS CARE MIN
[2025-03-31] MEDS ORDERED: CALCIUM CARBONATE 500 MG CHEWABLE TAB PO PRN (15:34)
[2025-03-31] MEDS ORDERED: FAMOTIDINE 20 MG TAB PO PRN (15:37)
[2025-03-31] MEDS: FAMOTIDINE 40 MG TABLET PO ONE (16:13)
--- NOTE | 2025-03-31 17:18 | Gastroenterology Progress Note ---
Date of Service March 31, 2025 Assessment & Plan (1) Proctocolitis: Plan: I think the enemas are helping just haven't fully kicked in yet. Will continue to follow Admission and Anticipated Discharge Date Admission Date: March 30, 2025 Subjective Day started better but now starting to have more diarrhea. Started mesalamine enemas last night Physical Exam Physical Exam: She looks well Constitutional: WD/WN, vitals as above Results & Data Vital Signs (Past 12 Hours) Vital Signs Temp Pulse Pulse Resp BP Pulse Ox O2 Del Method 03/31/25 14:45 36.7 C 55 L 18 119/50 L 95 Nasal Cannula 03/31/25 13:02 54 L 03/31/25 11:34 36.7 C 52 L 18 95/54 L 97 Room Air 03/31/25 07:43 36.6 C 49 L 18 95/50 L 96 Room Air 03/31/25 05:50 52 L
[2025-04-01] MEDS: MELATONIN 3 MG TAB PO PRN (00:53)
[2025-04-01 07:15] LABS: Hematocrit (blood only) 34.3 % (37.0-47.0); Hemoglobin 11.1 g/dl (12.0-16.0); Immature Granulocytes # (auto) 0.02 K/uL (0.01-0.20); Immature Granulocytes % (auto) 0.4 %; Mean Corpuscular Hemoglobin 28.8 pg (25.0-34.0); Mean Corpuscular Volume 88.9 fL (80.0-100.0); Platelet Count 415 K/uL (130-400); RDW Standard Deviation 48.6 fL (36.4-46.3); Red Blood Count 3.86 M/uL (4.20-5.40); White Blood Count 4.49 K/ul (4.8-10.8)
[2025-04-01 07:41] LABS: Alanine Aminotransferase 11.0 U/L (7-52); Albumin Globulin Ratio 1.0 (0.9-2); Alkaline Phosphatase 81.0 U/L (34-104); Anion Gap 5.0 (3-11); Bilirubin,Total 0.2 mg/dl (0.2-1.0); Blood Urea Nitrogen 8.0 mg/dl (6-23); Calcium 8.4 mg/dl (8.6-10.3); Carbon Dioxide 29.0 mmol/L (21-32); Chloride 104.0 mmol/L (98-107); Creatinine Clr Calc Pharmacy 51.9 ml/min; Globulin 2.7 gm/dl (2.5-4.0); Glucose 123.0 mg/dl (70-99(Fasting)); Magnesium 1.6 mg/dl (1.7-2.4); Potassium 3.6 mmol/L (3.5-5.1); Sodium 138.0 mmol/L (136-145); Total Protein 5.3 gm/dl (6.0-8.3)
--- NOTE | 2025-04-01 08:04 | Hospitalist Progress Note ---
Date of Service April 01, 2025 Assessment & Plan (1) Proctocolitis: (2) History of Clostridioides difficile colitis: (3) Primary hypothyroidism: (4) Exacerbation of Crohn's disease of large intestine: (5) Hypercholesterolemia: Plan (1) Exacerbation of Crohn's disease of large intestine: Plan: Doing better. Continue IV steroids and IV antibiotics. Mesalamine enemas started. Possible transfer to tertiary care recommended by Naomiunately right now she seems to be feeling betterso while she likely needs tertiary GI and colorectal follow-up, at this point she hopefully will not need acute transfer. (2) Proctocolitis: Plan: Seen on abdomen CT scan from Crohn's disease (3) History of Clostridioides difficile colitis: Plan: Gene is positive. Toxin negative. Will follow. Given Cipro and Flagyl for Crohn's flare, and given that Flagyl is not reliable for treating/preventing C. difficile, and given that it sounds like her Crohns flare really started with C. difficile colitisWill prophylax with 125 of Vanco daily. (4) Hypercholesterolemia: Plan: Stable. Continue statin therapy (5) Primary hypothyroidism: Plan: Stable. Continue current replacement therapy Plan To be determined by clinical course 2 days ago GI recommended transfer to tertiary but given the complexity of her situation, it might be that we can reign in the current flareup here and have follow-up outpatient at [facility]. Admission and Anticipated Discharge Date Admission Date: March 30, 2025 Supervising Physician Co-Signing Physician Notes I personally examined the patient and verified all baird points of history and exam, discussed case, and agree with decision making with Dr Tanya Kumar whenever I saw her. In discussion with resident physician her diarrhea is gotten a little bit worse and she was having more belly pain. Vitals noted, in general she is resting comfortably and given that she will require ongoing hospital care, I allowed her to rest. Breathing unlabored no accessory muscle use good effort. Skin without rashes pallor or icterus. Neuro without focal deficits. Crohn's flarefeeling worse today, but not dramatically worsenedi.e. no clear indication to need to transfer right now. Continue steroids and antibiotics. Continue IV fluids given that she is not eating and drinking great yet. Recent C. difficilecontinue vancomycin prophylaxis given that she is on broad antibiotics as above. DVT prophylaxisstart Lovenox (no evidence of active bleeding right now) Subjective Patient is a pleasant 74 yo F with Chron's exacerbation. Patient stated that dinner "went through her". Patient can't exactly recall how many times she went to the bathroom last night, but maybe 3-4 times. Patient still has abdominal pain, which is mostly at her middle upper abdomen. Patient stated that she had left abdominal pain last night but it went away this morning. She also said she has an appointment Thursday with the colorectal surgeon. Patient denies fever, N/V, and chest pain. Patient did admit to having heart palpitations but takes metoprolol for that. Review of Systems Review of Systems: as per subjective HPI Physical Exam Constitutional: WD/WN, vitals as above Eyes: EOM intact bilaterally ENMT: Ears: + hearing impairment (patient hard of hearing) Neck: normal visual inspection Respiratory: normal respiratory effort, lungs clear to auscultation Cardiovascular: Rate/Rhythm: regular rate and regular rhythm Heart Sounds: normal S1 and normal S2; no murmur Gastrointestinal (Abdomen): Inspection/Auscultation: abdomen normal to inspection; abdomen not distended Percussion/Palpation: + abdomen tender (RUQ and epigastric ) and abdomen soft Skin: no rashes, warm and dry Neurologic: awake Psychiatric: A+Ox3, euthymic affect Results & Data Results & Data Vital Signs (Past 12 Hours) Vital Signs Temp Pulse Pulse Resp BP BP Pulse Ox 04/01/25 07:45 54 L 04/01/25 07:14 36.6 C 54 L 18 110/57 L 98 04/01/25 04:14 36.4 C L 58 L 18 109/66 95 04/01/25 00:18 36.6 C 58 L 18 109/53 L 95 03/31/25 23:01 52 L 03/31/25 20:31 36.7 C 54 L 18 110/66 95 O2 Del Method 04/01/25 07:45 04/01/25 07:14 Room Air 04/01/25 04:14 Room Air 04/01/25 00:18 Room Air 03/31/25 23:01 03/31/25 20:31 Room Air
--- NOTE | 2025-04-01 08:49 | Gastroenterology Progress Note ---
Date of Service April 01, 2025 Assessment & Plan (1) Exacerbation of Crohn's disease: Plan: She isn't responding well to the addition of the enemas. She realizes it may take some time. If she isn't better by Thursday I would consider talking with [facility] about transfer there. Admission and Anticipated Discharge Date Admission Date: March 30, 2025 Subjective Not doing as well today as she did yesterday. Diarrhea is back and she has more pain now. Pain is the same pain she has had with flares in the past. Physical Exam Physical Exam: She looks well Constitutional: WD/WN, vitals as above Results & Data Vital Signs (Past 12 Hours) Vital Signs Temp Pulse Pulse Resp BP BP Pulse Ox 04/01/25 07:45 54 L 04/01/25 07:14 36.6 C 54 L 18 110/57 L 98 04/01/25 04:14 36.4 C L 58 L 18 109/66 95 04/01/25 00:18 36.6 C 58 L 18 109/53 L 95 03/31/25 23:01 52 L O2 Del Method 04/01/25 07:45 04/01/25 07:14 Room Air 04/01/25 04:14 Room Air 04/01/25 00:18 Room Air 03/31/25 23:01
--- NOTE | 2025-04-01 17:01 | Billing Data ---
Date of Service April 01, 2025 Coding Level of Care Code 72697 SUB INP/OBS CARE
[2025-04-01] MEDS: ONDANSETRON INJ 2 MG/ML 2 ML VIAL IV PRN (19:06)
[2025-04-02 06:37] LABS: Hematocrit (blood only) 31.9 % (37.0-47.0); Hemoglobin 10.7 g/dl (12.0-16.0); Immature Granulocytes # (auto) 0.01 K/uL (0.01-0.20); Immature Granulocytes % (auto) 0.2 %; Mean Corpuscular Hemoglobin 30.1 pg (25.0-34.0); Mean Corpuscular Volume 89.6 fL (80.0-100.0); Platelet Count 393 K/uL (130-400); RDW Standard Deviation 48.8 fL (36.4-46.3); Red Blood Count 3.56 M/uL (4.20-5.40); White Blood Count 5.19 K/ul (4.8-10.8)
[2025-04-02 07:07] LABS: Alanine Aminotransferase 12.0 U/L (7-52); Albumin Globulin Ratio 1.0 (0.9-2); Alkaline Phosphatase 73.0 U/L (34-104); Anion Gap 3.0 (3-11); Bilirubin,Total 0.1 mg/dl (0.2-1.0); Blood Urea Nitrogen 9.0 mg/dl (6-23); Calcium 8.1 mg/dl (8.6-10.3); Carbon Dioxide 31.0 mmol/L (21-32); Chloride 104.0 mmol/L (98-107); Creatinine Clr Calc Pharmacy 58.8 ml/min; Globulin 2.5 gm/dl (2.5-4.0); Glucose 96.0 mg/dl (70-99(Fasting)); Magnesium 1.6 mg/dl (1.7-2.4); Potassium 3.5 mmol/L (3.5-5.1); Sodium 138.0 mmol/L (136-145); Total Protein 4.9 gm/dl (6.0-8.3)
--- NOTE | 2025-04-02 07:55 | Hospitalist Progress Note ---
Date of Service April 02, 2025 Assessment & Plan (1) Proctocolitis: (2) History of Clostridioides difficile colitis: (3) Primary hypothyroidism: (4) Exacerbation of Crohn's disease of large intestine: (5) Hypercholesterolemia: Plan (1) Exacerbation of Crohn's disease of large intestine: Plan: Doing better. Continue IV steroids and IV antibiotics. Mesalamine enemas started. Possible transfer to tertiary care recommended by Liss right now she seems to be feeling betterso while she likely needs tertiary GI and colorectal follow-up, at this point she hopefully will not need acute transfer. Changed IV steroid to daily. (2) Proctocolitis: Plan: Seen on abdomen CT scan from Crohn's disease (3) History of Clostridioides difficile colitis: Plan: Gene is positive. Toxin negative. Will follow. Given Cipro and Flagyl for Crohn's flare, and given that Flagyl is not reliable for treating/preventing C. difficile, and given that it sounds like her Crohns flare really started with C. difficile colitisWill prophylax with 125 of Vanco daily. (4) Hypercholesterolemia: Plan: Stable. Continue statin therapy (5) Primary hypothyroidism: Plan: Stable. Continue current replacement therapy Plan Patient was anxious after having a bout of diarrhea this morning. Patient and family would like to stay one more day. Will discharge tomorrow. Admission and Anticipated Discharge Date Admission Date: March 30, 2025 Supervising Physician Co-Signing Physician Notes I personally examined the patient and verified all baird points of history and exam, discussed case, and agree with decision making with Dr Martínez Feeling a good deal better. Eating better. Diarrhea now mostly isolated to between dinner and bedtime. Did have a little bit of blood last night but this is nothing unusual for her. Initially feeling good enough that she thought she would be okay at home, later understandably a little bit nervous about it and wanted to take things a bit slower. Vitals noted, in general she is awake and alert pleasant no distress. HEENT normocephalic atraumatic mucous membranes moist. Breathing unlabored no accessory muscle use good effort. Skin without rashes pallor or icterus. Neuro without focal deficits. Crohn's flare Improving. Continue current care for now. Close to being able to get home. Has outpatient follow-up with Demi recio on Thursday. Recent C. difficilecontinue vancomycin prophylaxis given that she is on broad antibiotics as above. (Discussed with her that since her current struggles with Crohn's were started by a C. difficile colitis infection, we will extend the suppressive Vanco for quite a while after we are done with the Cipro and Flagyl to be cautious). DVT prophylaxisambulation, SCDs (bleeding a little with crohn's presenting a degree of a relative contraindication to pharmacologic) Subjective Patient is a pleasant 74 year old female who is stable and in no acute distress. Patient stated she had a hard time falling asleep last night. She was also given Dilaudid for her stomach pain at night, which she said was throughout her abdomen. Patient stated the Dilaudid helped. Last night patient couldn't exactly recall how many times she had a bowel movement but thinks it was 4 times. Yesterday patient had 1 bowel movement which had blood in it. But no other bloody in her bowel movements since. Patient also said she was nauseous last night, but is not nauseous now. This morning patient denies stomach pain, vomiting, and chest pain. Patient also stated she is tolerating food okay. Review of Systems Review of Systems: as per subjective HPI Physical Exam Constitutional: WD/WN, vitals as above Eyes: EOM intact bilaterally ENMT: Ears: + hearing impairment (patient hard of hearing) Neck: normal visual inspection Respiratory: normal respiratory effort, lungs clear to auscultation Cardiovascular: Rate/Rhythm: regular rate and regular rhythm Heart Sounds: normal S1 and normal S2; no murmur Gastrointestinal (Abdomen): Inspection/Auscultation: abdomen not distended Percussion/Palpation: + abdomen tender (Epigastric ) and abdomen soft Skin: no rashes, warm and dry Neurologic: awake Psychiatric: A+Ox3, euthymic affect Results & Data Results & Data Vital Signs (Past 12 Hours) Vital Signs Temp Pulse Pulse Resp BP BP Pulse Ox 04/02/25 07:49 36.6 C 50 L 16 123/51 L 94 04/02/25 07:05 55 L 04/02/25 03:47 36.6 C 56 L 18 101/56 L 93 04/02/25 00:17 36.6 C 56 L 18 105/60 95 04/01/25 22:43 52 L 04/01/25 20:06 36.2 C L 56 L 18 104/59 L 95 O2 Del Method 04/02/25 07:49 Room Air 04/02/25 07:05 04/02/25 03:47 Room Air 04/02/25 00:17 Room Air 04/01/25 22:43 04/01/25 20:06 Room Air
[2025-04-02] MEDS ORDERED: ENOXAPARIN INJ 40 MG/0.4 ML SYR SQ SCH (09:00)
--- NOTE | 2025-04-02 11:34 | Discharge Summary ---
Date of Service April 02, 2025 Admission HPI Per Admitting Provider The patient is a 74-year-old female with past medical history including Crohn's disease, C. difficile colitis, iron deficiency, insomnia, underweight, essential tremor, generalized anxiety disorder, hypercalcemia, depression, CAD, and hypercholesterolemia. The patient presents to the emergency department with complaint of another Crohn's exacerbation, which consisted primarily of intermittent diarrheal episodes, and progressively worsening generalized weakness and fatigue, which she has had intermittently over the past several months. She was started on prednisone tapering schedule about 1 week ago, without significant improvement in symptoms. CT scan abdomen and pelvis ordered by the ED suggested proctocolitis. Patient received from the ED the following: Zofran 4 mg IV, Dilaudid 0.25 mg IV, normal saline 500 mL bolus, and Tylenol 500 mg IV. She was then referred for evaluation for admission to [facility]. Stool study was also positive for C. difficile gene positive, but toxin negative. She reports C. difficile in the past have been treated with a medication close taking twice daily, which presumptively was Dificid. Discharge Exam Constitutional WD/WN, vitals as above Eyes EOM intact bilaterally ENMT Ears: + hearing impairment (patient hard of hearing) Neck normal visual inspection Respiratory normal respiratory effort, lungs clear to auscultation Cardiovascular Rate/Rhythm: regular rate and regular rhythm Heart Sounds: normal S1 and normal S2; no murmur Gastrointestinal (Abdomen) Inspection/Auscultation: abdomen normal to inspection; abdomen not distended Percussion/Palpation: + abdomen tender (Epigastric ) and abdomen soft Skin no rashes, warm and dry Neurologic awake Psychiatric A+Ox3, euthymic affect Discharge Data Allergies Allergy/AdvReac Type Severity Reaction Status Date / Time No Known Allergies Allergy Verified 01/23/25 09:34 Consultations 03/29/25 22:01 ED Decision to Admit Stat 03/30/25 01:10 Consult Gastroenterology Routine Ordered Studies 03/29/25 20:18 CT abd pelvis IV con only Stat Hospital Course (1) Proctocolitis: (2) History of Clostridioides difficile colitis: (3) Primary hypothyroidism: (4) Exacerbation of Crohn's disease of large intestine: (5) Hypercholesterolemia: Plan (1) Exacerbation of Crohn's disease of large intestine: Plan: Doing better. Continue IV steroids and IV antibiotics. Mesalamine enemas started. Possible transfer to tertiary care recommended by Liss right now she seems to be feeling betterso while she likely needs tertiary GI and colorectal follow-up, at this point she hopefully will not need acute transfer. (2) Proctocolitis: Plan: Seen on abdomen CT scan from Crohn's disease (3) History of Clostridioides difficile colitis: Plan: Gene is positive. Toxin negative. Will follow. Given Cipro and Flagyl for Crohn's flare, and given that Flagyl is not reliable for treating/preventing C. difficile, and given that it sounds like her Crohns flare really started with C. difficile colitisWill prophylax with 125 of Vanco daily. (4) Hypercholesterolemia: Plan: Stable. Continue statin therapy (5) Primary hypothyroidism: Plan: Stable. Continue current replacement therapy Plan To be determined by clinical course 3 days ago GI recommended transfer to tertiary but given the complexity of her situation, it might be that we can reign in the current flareup here and have follow-up outpatient at tertiary. Discharge Plan Discharge Items Patient Disposition: Home - Self-Care Reason For Visit: CROHN'S EXACERBATION Discharge Diagnosis: Crohn's Exacerbation Condition on Discharge: Good Activity: Resume your previous activity Non-emergency contact: Primary Care Provider Call non-emergency contact if: your symptoms worsen, your pain is worsening and your temperature is above 101.5 Follow-up/Referrals: Ricardo Turcios DO [Primary Care Provider] - Diet: Regular Addtl Attending Provider Instructions: You presented into the hospital with a Crohn's flare. You had some diarrhea episodes, and worsening fatigue and weakness. During your hospital stay we provided imaging of your abdomen to confirm what was causing your abdominal pain. We also provided IV antibiotics and IV steroids to resolve your Crohn's exacerbation. We also gave IV antibiotics to prevent C. diff, a bacteria that can cause diarrhea, due to you have C. diff a couple of months prior. We also provided pain medication to help with your pain, and IV fluids to rehydrate you. Please keep your appointment with colorectal surgery this upcoming Thursday. Also, please see your primary care provider within 1-2 weeks to speak about your current hospital stay. Please continue to drink plenty of fluids. Medications -Please continue all home medications as prescribed. Please come back to the ER if symptoms worsen, if you have a fever, and/or uncontrollable diarrhea. Pending Studies at Discharge: No Stand-Alone Forms: [facility], Smoking Cessation Medications and DC Order Prescriptions: Continued primidone 50 mg tablet 250 mg PO BID Qty: 900 0RF clonazepam 0.5 mg tablet 0.25 mg PO BID PRN (Reason: anxiety) Qty: 30 2RF gabapentin 100 mg capsule 200 mg PO TID Qty: 180 6RF acetaminophen [Tylenol Extra Strength] 500 mg Tablet 1,000 mg PO Q8H PRN (Reason: Pain) rosuvastatin 40 mg tablet 40 mg PO QAM dicyclomine 10 mg capsule 10 mg PO TID PRN (Reason: abdominal cramping) Entyvio 300 mg recon soln 300 mg IV UD Rx Instructions: every 8 weeks mirtazapine 15 mg tablet 15 mg PO HS escitalopram oxalate [Lexapro] 20 mg tablet 20 mg PO QAM nitroglycerin 0.4 mg tablet, sublingual 0.4 mg sublingual UD PRN (Reason: Chest Pain) amlodipine 5 mg tablet 5 mg PO QAM aspirin 81 mg Tablet,Delayed Release (Dr/Ec) 81 mg PO QAM triamcinolone acetonide 0.1 % Cream 1 applic TOPICAL BID PRN (Reason: SKIN IRRITATIONS) famotidine 20 mg Tablet 20 mg PO BID PRN (Reason: Heartburn) ondansetron 4 mg Tablet,Disintegrating 4 mg PO TID PRN (Reason: NAUSEA/VOMITING) oxycodone 5 mg Tablet 5 mg PO TID PRN (Reason: Pain (Scale Score 4-6)) bupropion HCl [Wellbutrin XL] 150 mg Tablet Extended Release 24 Hr 150 mg PO QAM budesonide 9 mg Tablet,Delayed And Ext.Release 9 mg PO QAM levothyroxine 50 mcg tablet 50 mcg PO QAM Rx Instructions: take 1 hour before breakfast ferrous sulfate 325 mg (65 mg iron) tablet 325 mg PO BID Qty: 60 0RF metoprolol succinate 25 mg tablet extended release 24 hr 50 mg PO HS Admission Data Admit Date/Time: 03/30/25 00:21 Attending Provider: Daniel Galeana Admit Provider: Edwin Grant Primary Care Provider: Ricardo Turcios Other Providers: Edwin Grant; Alexandrea Berg Jr
--- NOTE | 2025-04-02 13:26 | Billing Data ---
Date of Service April 02, 2025 Coding Level of Care Code 23764 SUB INP/OBS CARE MIN
--- NOTE | 2025-04-02 13:27 | Billing Data ---
Date of Service April 02, 2025 Coding Level of Care Code 68194 SUB INP/OBS CARE MIN
--- NOTE | 2025-04-03 07:08 | Hospitalist Progress Note ---
Date of Service April 03, 2025 Assessment & Plan (1) Proctocolitis: (2) History of Clostridioides difficile colitis: (3) Primary hypothyroidism: (4) Exacerbation of Crohn's disease of large intestine: (5) Hypercholesterolemia: Plan (1) Exacerbation of Crohn's disease of large intestine: Plan: Continue IV steroids and IV antibiotics. Mesalamine enemas dose yesterday. (2) Proctocolitis: Plan: Seen on abdomen CT scan from Crohn's disease; as above (3) History of Clostridioides difficile colitis: Plan: Gene is positive. Toxin negative. Will follow. Given Cipro and Flagyl for Crohn's flare, and given that Flagyl is not reliable for treating/preventing C. difficile, and given that it sounds like her Crohns flare really started with C. difficile colitisWill prophylax with 125 of Vanco daily. (4) Hypercholesterolemia: Plan: Stable. Continue statin therapy (5) Primary hypothyroidism: Plan: Stable. Continue current replacement therapy Plan Plan to Admission and Anticipated Discharge Date Admission Date: March 30, 2025 Subjective Overnight she experienced 6 episodes of mucousy, nonbloody diarrhea. This morning she feels anxious about her condition given the recent worsening of diarrhea, however understand that diarrhea can be expected with having Crohn Disease. Pt is tolerating her diet fine. She denies fever, chills, nausea, vomiting, abdominal pain, CP, SOB, or complaints. Review of Systems Review of Systems: per HPI Physical Exam Physical Exam: GA: AAOx4, well-groomed, no apparent distress HEENT: sclera anicteric, EOMI CVS: S1 and S2 heard, no murmurs, rubs, or gallops, Pulse: regular rate and rhythm, 2+ B/L RESP: vesicular breath sounds, no wheezes, rhonchi, or rales ABD: nontender, nondistended, normoactive bowel sounds SKIN: no rashes noted NEURO: no focal deficits noted Results & Data Results & Data Vital Signs (Past 12 Hours) Vital Signs Temp Pulse Pulse Resp BP BP Pulse Ox 04/03/25 03:27 36.4 C L 54 L 16 111/55 L 94 04/02/25 23:02 36.7 C 61 18 152/68 H 92 04/02/25 22:57 49 L 04/02/25 19:38 36.6 C 50 L 18 138/54 L 94 O2 Del Method 04/03/25 03:27 Room Air 04/02/25 23:02 Room Air 04/02/25 22:57 04/02/25 19:38 Room Air Resident Activity Tracking Resident Involvement: Resident Care Provided Care Provided: Adult Hospital Medicine
[2025-04-03 08:08] LABS: Hematocrit (blood only) 33.7 % (37.0-47.0); Hemoglobin 10.9 g/dl (12.0-16.0); Immature Granulocytes # (auto) 0.02 K/uL (0.01-0.20); Immature Granulocytes % (auto) 0.4 %; Mean Corpuscular Hemoglobin 29.0 pg (25.0-34.0); Mean Corpuscular Volume 89.6 fL (80.0-100.0); Platelet Count 402 K/uL (130-400); RDW Standard Deviation 49.2 fL (36.4-46.3); Red Blood Count 3.76 M/uL (4.20-5.40); White Blood Count 4.97 K/ul (4.8-10.8)
[2025-04-03 08:23] LABS: Alanine Aminotransferase 13.0 U/L (7-52); Albumin Globulin Ratio 1.1 (0.9-2); Alkaline Phosphatase 66.0 U/L (34-104); Anion Gap 5.0 (3-11); Bilirubin,Total 0.2 mg/dl (0.2-1.0); Blood Urea Nitrogen 9.0 mg/dl (6-23); Calcium 8.4 mg/dl (8.6-10.3); Carbon Dioxide 30.0 mmol/L (21-32); Chloride 103.0 mmol/L (98-107); Creatinine Clr Calc Pharmacy 57.6 ml/min; Globulin 2.4 gm/dl (2.5-4.0); Glucose 108.0 mg/dl (70-99(Fasting)); Potassium 3.3 mmol/L (3.5-5.1); Sodium 138.0 mmol/L (136-145); Total Protein 5.0 gm/dl (6.0-8.3)
[2025-04-03] MEDS: MAGNESIUM SULFATE / D5W 1 GM/100 ML BAG IV SCH (09:15)
[2025-04-03] MEDS: POTASSIUM CHLORIDE CRTAB 20 MEQ TABCR PO STA (09:20)
[2025-04-03 11:30] VITALS: RESP 20; TEMP 98.2; O2SAT 94
[2025-04-03 15:41] VITALS: BP 151/65; PULSE 56
--- NOTE | 2025-04-03 17:33 | Discharge Summary ---
Date of Service April 03, 2025 Admission HPI Per Admitting Provider Chief Complaint: The patient presents to the emergency department with complaint of another Crohn's exacerbation, which she has had intermittently over the past several months. She was started on prednisone tapering schedule about 1 week ago, without significant improvement in symptoms. CT scan abdomen and pelvis ordered by the ED suggested proctocolitis. Patient received from the ED the following: Zofran 4 mg IV, Dilaudid 0.25 mg IV, normal saline 500 mL bolus, and Tylenol 500 mg IV. She was then referred for evaluation for admission to [facility] Primary Care Provider: Ricardo Turcios DO The patient is a 74-year-old female with past medical history including Crohn's disease, C. difficile colitis, iron deficiency, insomnia, underweight, essential tremor, generalized anxiety disorder, hypercalcemia, depression, CAD, and hypercholesterolemia. The patient presents to the emergency department with complaint of another Crohn's exacerbation, which consisted primarily of i ntermittent diarrheal episodes, and progressively worsening generalized weakness and fatigue, which she has had intermittently over the past several months. She was started on prednisone tapering schedule about 1 week ago, without significant improvement in symptoms. CT scan abdomen and pelvis ordered by the ED suggested proctocolitis. Patient received from the ED the following: Zofran 4 mg IV, Dilaudid 0.25 mg IV, normal saline 500 mL bolus, and Tylenol 500 mg IV. She was then referred for evaluation for admission to [facility]. Stool study was also positive for C. difficile gene positive, but toxin negative. She reports C. difficile in the past have been treated with a medication close taking twice daily, which presumptively was Dificid. Admission Exam Per Admitting Provider The patient is awake, alert and oriented 3, well developed and well nourished, normocephalic and atraumatic, lying in bed and in no acute distress. HEENT--PERRL, EOMI, mucous membranes and oropharynx dry. Neck--supple. No JVD. No bruits. Thyroid normal, trachea midline, no adenopathy. Heart--normal S1 and S2. No murmurs, rubs or gallops. Lungs--clear bilaterally, no respiratory distress, no accessory muscle use. Abdomen--normal bowel sounds and soft. Nontender. Nondistended Extremities--no cyanosis or clubbing. No edema. There are good distal pulses b/l. Dermatologic--normal skin turgor, normal color, no abnormal lymph nodes, no rash. Neurologic--cranial nerves II through XII grossly intact. Rheumatologic--normal range of motion. Psychiatric--normal affect. Principal Diagnosis Crohn Disease Flare Discharge Exam GA: AAOx4, well-groomed, no apparent distress HEENT: sclera anicteric, EOMI CVS: S1 and S2 heard, no murmurs, rubs, or gallops, Pulse: regular rate and rhythm, 2+ B/L RESP: vesicular breath sounds, no wheezes, rhonchi, or rales ABD: nontender, nondistended, normoactive bowel sounds SKIN: no rashes noted NEURO: no focal deficits noted Discharge Data Allergies Allergy/AdvReac Type Severity Reaction Status Date / Time No Known Allergies Allergy Verified 01/23/25 09:34 Consultations 03/29/25 22:01 ED Decision to Admit Stat 03/30/25 01:10 Consult Gastroenterology Routine Ordered Studies 03/29/25 20:18 CT abd pelvis IV con only Stat Hospital Course (1) Proctocolitis: (2) History of Clostridioides difficile colitis: (3) Primary hypothyroidism: (4) Exacerbation of Crohn's disease of large intestine: (5) Hypercholesterolemia: Plan (1) Exacerbation of Crohn's disease of large intestine: Plan: -Pt was managed with IV steroids (methylprednisolone 40mg) and IV antibiotics (cipro 500mg BID, metronidazole 500mg TID, and vanco 125mg daily) and mesalamine enemas during her hospital course -Continue prednisone course for 4 week taper decreasing by 10mg each week: 40mg then 30mg then 20mg then 10mg. -Continue antibiotic regimen: ciprofloxacin 500mg BID for 5 more days, metronidazole 500mg TID for 5 more days, and vancomycin 125mg qdaily for 14 more days -PO fluids if continue to have diarrhea (2) Proctocolitis: Plan: Seen on abdomen CT scan from Crohn's disease; rest as above (3) History of Clostridioides difficile colitis: Plan: -Gene is positive. Toxin negative. -continue antibiotic regimen as above (4) Hypercholesterolemia: Plan: Stable. Continue statin therapy (5) Primary hypothyroidism: Plan: Stable. Continue current replacement therapy Plan Plan to -follow up with PCP in 1-2 weeks outpatient -follow up with Gastroenterology and Crohn Specialist outpatient -rest as above Total Time Total Time Spent Total Time Spent (In Minutes): see attending physician attestation Discharge Plan Discharge Items Patient Disposition: Home - Self-Care Reason For Visit: CROHN'S EXACERBATION Discharge Diagnosis: Crohn's Exacerbation Condition on Discharge: Good Activity: Resume your previous activity Non-emergency contact: Primary Care Provider Call non-emergency contact if: your symptoms worsen, your pain is worsening and your temperature is above 101.5 Follow-up/Referrals: Ricardo Turcios DO [Primary Care Provider] - 04/11/25 1:00 pm Lopez Jones MD [Outside Practitioners] - Diet: Regular Addtl Attending Provider Instructions: You presented into the hospital with a Crohn's flare. You had some diarrhea episodes, and worsening fatigue and weakness. During your hospital stay we provided imaging of your abdomen to confirm what was causing your abdominal pain. We also provided IV antibiotics and IV steroids to resolve your Crohn's exacerbation. We also gave IV antibiotics to prevent C. diff, a bacteria that can cause diarrhea, due to you have C. diff a couple of months prior. We also provided pain medication to help with your pain, and IV fluids to rehydrate you. Please keep your appointment with colorectal surgery this upcoming Thursday. Also, please see your primary care provider within 1-2 weeks to speak about your current hospital stay. Our case management team will try to assist you with setting up a follow up appointment with Dr. Jones, hopefully not long after your colorectal surgery appointment. If you have not been contacted to schedule by the end of the week, please reach out to Dr. Jones's office directly. Please continue to drink plenty of fluids, particularly if your diarrhea continues. As you leave the hospital, these are the new medications for you to take: New Medications -Ciprofloxacin 500mg twice a day for 5 days -Flagyl (metronidazole) 500mg three times a day for 5 days -Vancomycin 125mg once a day for 2 weeks -Prednisone taper * 4 tablets once a day for 1 week * then 3 tablets once a day for 1 week * then 2 tablets once a day for 1 week * then 1 tablet once a day for 1 week Home Medications -Continue all home medications as prescribed. Please come back to the ER if symptoms worsen, if you have a fever, or uncontrollable diarrhea and/or bloody diarrhea. Pending Studies at Discharge: No Stand-Alone Forms: My [facility], Smoking Cessation Medications and DC Order Prescriptions: New vancomycin 125 mg capsule 125 mg PO DAILY 14 Days Qty: 14 0RF ciprofloxacin HCl 500 mg tablet 500 mg PO BID 5 Days Qty: 10 0RF metronidazole 500 mg tablet 500 mg PO TID Qty: 15 0RF prednisone 10 mg tablet 10 mg PO DIRECTED Qty: 70 0RF Rx Instructions: 4 tablets once a day for 1 week. Then 3 tablets once a day for 1 week. Then 2 tablets once a day for 1 week. Then 1 tablet once a day for 1week. Continued primidone 50 mg tablet 250 mg PO BID Qty: 900 0RF clonazepam 0.5 mg tablet 0.25 mg PO BID PRN (Reason: anxiety) Qty: 30 2RF gabapentin 100 mg capsule 200 mg PO TID Qty: 180 6RF acetaminophen [Tylenol Extra Strength] 500 mg Tablet 1,000 mg PO Q8H PRN (Reason: Pain) rosuvastatin 40 mg tablet 40 mg PO QAM dicyclomine 10 mg capsule 10 mg PO TID PRN (Reason: abdominal cramping) Entyvio 300 mg recon soln 300 mg IV UD Rx Instructions: every 8 weeks mirtazapine 15 mg tablet 15 mg PO HS escitalopram oxalate [Lexapro] 20 mg tablet 20 mg PO QAM nitroglycerin 0.4 mg tablet, sublingual 0.4 mg sublingual UD PRN (Reason: Chest Pain) amlodipine 5 mg tablet 5 mg PO QAM aspirin 81 mg Tablet,Delayed Release (Dr/Ec) 81 mg PO QAM triamcinolone acetonide 0.1 % Cream 1 applic TOPICAL BID PRN (Reason: SKIN IRRITATIONS) famotidine 20 mg Tablet 20 mg PO BID PRN (Reason: Heartburn) ondansetron 4 mg Tablet,Disintegrating 4 mg PO TID PRN (Reason: NAUSEA/VOMITING) oxycodone 5 mg Tablet 5 mg PO TID PRN (Reason: Pain (Scale Score 4-6)) bupropion HCl [Wellbutrin XL] 150 mg Tablet Extended Release 24 Hr 150 mg PO QAM budesonide 9 mg Tablet,Delayed And Ext.Release 9 mg PO QAM levothyroxine 50 mcg tablet 50 mcg PO QAM Rx Instructions: take 1 hour before breakfast ferrous sulfate 325 mg (65 mg iron) tablet 325 mg PO BID Qty: 60 0RF metoprolol succinate 25 mg tablet extended release 24 hr 50 mg PO HS Discharge Orders: Discharge Order (Routine); Ordered 04/03/25 Ordered By: Gucci Ames Admission Data Admit Date/Time: 03/30/25 00:21 Attending Provider: Mele Roche Admit Provider: Edwin Grant Primary Care Provider: Ricardo Turcios Other Providers: Edwin Grant; Alexandrea Berg Jr Other Interventions: Discharge Summary Assessment (RN) Last Done: 04/03/25 15:40 Supervising Physician Co-Signing Physician Notes I personally examined the patient and verified all baird points of history and exam, discussed case, and agree with decision making with Dr Pena Feeling a good deal better. Eating better. Diarrhea now more similar to her home diarrhea. Patient feels she is near her baseline state. She is anxious about upcoming appointment this week with colorectal surgery and discussion with her outpatient fish inspector regarding a new biologic agent for her Crohn's disease. l she is awake and alert pleasant no distress. HEENT normocephalic atraumatic mucous membranes moist. Breathing unlabored no accessory muscle use good effort. Skin without rashes pallor or icterus. Neuro without focal deficits. Crohn's flare Improving. Continue current care for now. Discharge patient to home, outpatient follow-up with Demi recio on Thursday. Recent C. difficilecontinue vancomycin prophylaxis given that she is on broad antibiotics as above. (Discussed with her that since her current struggles with Crohn's were started by a C. difficile colitis infection), Resident Activity Tracking Resident Involvement: Resident Care Provided Care Provided: Adult Hospital Medicine
--- NOTE | 2025-04-04 07:30 | Billing Data ---
Date of Service April 04, 2025 Coding Level of Care Code 30263 IN/OBS DISCH 30 MIN/LESS
== END 2025-04-03 16:02 | disposition home or self-care (01) | DRG 386 ==
LOC: ED 17:46 → EDINP 03-30 00:21 → SUATTDRO 03-30 00:21 → 2W 03-30 15:56